=== PATIENT | male | born 1950 | race Caucasian/White ===

== ENCOUNTER → 2018-01-06 14:15 | Outpatient (CLI) | payer MEDICARE, SELFPAY ==
--- NOTE | 2018-01-06 14:15 | DT_ITS ---
This patient was seen during an EMR downtime January 06, 2018 - January 13, 2018. This patient may have a combination of paper and electronic documentation or all paper documentation. All documentation is viewable within the e-chart portion of [employer] for each patient visit.
[2018-01-12 03:16] LABS: PSA,Total- Diagnostic 4.81 ng/mL (0.0-4.0)
== END ==
PROVIDERS: Family Provider Family Medicine; PCP Family Medicine; Visit Provider Family Medicine
DX: R97.20 Elevated prostate specific antigen [PSA] (principal)
CPT/HCPCS: 36415; 84153

== ENCOUNTER 2018-06-11 09:20 | Emergency (ER) | payer MEDICARE, SELFPAY ==
[2018-06-11 09:21] VITALS: BP 167/101; PULSE 72; RESP 19; TEMP 36.3; O2SAT 96; BMI 34.3
--- NOTE | 2018-06-11 09:40 | CT_ITS ---
STUDY: CT BRAIN WITHOUT CONTRAST REASON FOR EXAM: Male, 68 years old. Vertigo. Vomiting. RADIATION DOSAGE (If Supplied By Facility): CTDIvol = ( 44.99 ) mGy, DLP = ( 829.85 ) mGycm TECHNIQUE: Transaxial CT imaging of the brain was performed without administration of intravenous contrast material. Individualized dose optimization techniques were used for this CT. COMPARISON: Comparison is made with prior study dated April 22, 2016. FINDINGS: Normal soft tissue structures. Normal calvarium. There is mild cerebral atrophy with widening of the extra-axial spaces and ventricular dilatation. There are areas of decreased attenuation within the white matter tracts of the supratentorial brain, consistent with microvascular disease changes. Normal basal ganglia and thalami. Normal brainstem. Normal cerebellum. There is no intracranial hemorrhage. There are no findings of an acute ischemic infarction. Atherosclerotic calcification of the cavernous portions of the internal carotid arteries and vertebral arteries. Partial opacification of the ethmoid sinuses. Mucosal thickening of the right maxillary sinus. CT/Brain/Head without Contrast IMPRESSION: Chronic involutional changes of the brain. Partial opacification of the ethmoid sinuses with mucosal thickening of the right maxillary sinus. Electronically Signed: Shree Carrillo MD at 10:26 EST Tel [phone], Service support ,
--- NOTE | 2018-06-11 09:43 | ED.VISSUMM ---
- ER Visit Summary Date of Service: 06/11/18 Chief Complaint: Dizziness History of Present Illness: The patient is a 68 M history of hypertension is treated with 2 blood pressure medications. Patient states that today he had sudden onset of room spinning dizziness. This or weakness to his upper or lower extremities. He denies any headache. He is on no blood thinners. Patient states his dizziness is worse when he moves his head. He states that the dizziness does make him nauseated and he is vomiting. Denies any hematemesis. No melena. No fever. No abdominal pain. Physical Examination: Older male initial blood pressure 167/101 while I am in the room is 180/82. Otherwise afebrile. H EENT exam pupils round reactive light. No facial droop. Normal speech. No signs of trauma. TMs are normal. Canals are unobstructed no significant wax. Neck nontender. No meningismus. Lungs clear to auscultation bilaterally. Heart regular rhythm no murmur rate about 70. Chest wall nontender. Abdomen soft nontender. Normal bowel sounds. No peritoneal signs. Patient is moving all 4 extremities. They are neurovascularly intact. No edema. Equal symmetrical radial pulses. Equal symmetrical 5 out of 5 public relations analyst strength. Dorsi plantar flexion intact. Neurologically is awake and alert with no focal motor deficits. Fingertip to nose heel to durham are both within normal limits. He does have a positive Hallpike when he is laid flat and his head is turned left and right side up he gets very dizzy and actually gets nauseated and vomited. His NIH score is 0. Test Results: Brain without contrast showed chronic changes no acute process. Also ethmoid sinus mucosal thickening. CBC normal. White count of 7. Hemoglobin 15. Electrolytes unremarkable other than potassium of 3.0. Creatinine 1.36 which is chronic. Emergency Department Course and Treatment: Patient will be treated with IV Zofran for nausea. P.o. Valium once his nausea resolves. Patient is doing much better after the p.o. Valium. His symptoms have resolved. On repeat exam his neurologic exam remains normal. He can now rotate his head from the left and right and has no dizziness or vertiginous symptoms. Treatment Plan: Discharged to home. Valium for his vertigo. Zofran for nausea. Follow-up with his primary care physician as needed. Return if worse. Disposition: Discharge Impression: Acute dizziness secondary to acute vertigo Acute on chronic hypertension This note was generated with [employer] dictation software. It may contain incorrect words, spelling, and punctuation that were not noted in review of the chart prior to signing ED Disposition - Plan for ED Patient: Chief Complaint: Hypertension Referrals: Thierry Fermin DO [Primary Care Provider] -
[2018-06-11] MEDS: Ondansetron 4 MG/2 ML Vial IV ×3 (09:46→11:01)
--- NOTE | 2018-06-11 09:48 | ED.DCSUM_ITS ---
- ER Visit Summary Date of Service: 06/11/18 Chief Complaint: Dizziness History of Present Illness: The patient is a 68 M history of hypertension is treated with 2 blood pressure medications. Patient states that today he had sudden onset of room spinning dizziness. This or weakness to his upper or lower extremities. He denies any headache. He is on no blood thinners. Patient states his dizziness is worse when he moves his head. He states that the dizziness does make him nauseated and he is vomiting. Denies any hematemesis. No melena. No fever. No abdominal pain. Physical Examination: Older male initial blood pressure 167/101 while I am in the room is 180/82. Otherwise afebrile. H EENT exam pupils round reactive light. No facial droop. Normal speech. No signs of trauma. TMs are normal. Canals are unobstructed no significant wax. Neck nontender. No meningismus. Lungs clear to auscultation bilaterally. Heart regular rhythm no murmur rate about 70. Chest wall nontender. Abdomen soft nontender. Normal bowel sounds. No peritoneal signs. Patient is moving all 4 extremities. They are neurovascularly intact. No edema. Equal symmetrical radial pulses. Equal symmetrical 5 out of 5 vegetable sorter strength. Dorsi plantar flexion intact. Neurologically is awake and alert with no focal motor deficits. Fingertip to nose heel to durham are both within normal limits. He does have a positive Hallpike when he is laid flat and his head is turned left and right side up he gets very dizzy and actually gets nauseated and vomited. His NIH score is 0. Test Results: Brain without contrast showed chronic changes no acute process. Also ethmoid sinus mucosal thickening. CBC normal. White count of 7. Hemoglobin 15. Electrolytes unremarkable other than potassium of 3.0. Creatinine 1.36 which is chronic. Emergency Department Course and Treatment: Patient will be treated with IV Zofran for nausea. P.o. Valium once his nausea resolves. Patient is doing much better after the p.o. Valium. His symptoms have resolved. On repeat exam his neurologic exam remains normal. He can now rotate his head from the left and right and has no dizziness or vertiginous symptoms. Treatment Plan: Discharged to home. Valium for his vertigo. Zofran for nausea. Follow-up with his primary care physician as needed. Return if worse. Disposition: Discharge Impression: Acute dizziness secondary to acute vertigo Acute on chronic hypertension This note was generated with [employer] dictation software. It may contain incorrect words, spelling, and punctuation that were not noted in review of the chart prior to signing ED Disposition - Plan for ED Patient: Chief Complaint: Hypertension Referrals: Thierry Fermin DO [Primary Care Provider] -
[2018-06-11 09:53] LABS: Absolute Neutrophil Count 5.5 X10^3/uL (2.0-7.7); Basophil# 0.01 X10^3/uL; Basophil% 0.1 % (0-1); Eosinophil# 0.48 X10^3/uL; Eosinophils% 6.3 % (0-5); Hemoglobin 15.6 g/dl (13.0-16.5); Lymphocyte % 15.6 % (19-41); Mean Corp Hgb Conc 33.9 g/gl (32-36); Mean Corpuscular Hgb 29.3 pg (27.0-32.0); Mean Corpuscular Volume 86.5 fL (80-94); Monocyte# 0.44 X10^3/uL; Monocyte% 5.7 % (0-10); Neutrophil # 5.54 X10^3/uL (2.7-7.7); Neutrophil % 72.2 % (47-70); Platelet Count 214 K/mm3 (150-450); RBC Distribution Width CV 13.9 % (11.6-14.6); RBC Distribution Width SD 43.5 fl (35.1-43.9); Red Blood Count 5.32 M/mm3 (4.6-6.2); White Blood Count 7.7 K/mm3 (4.4-11.0)
[2018-06-11 09:57] LABS: POSITIVE COUNT NO; POSITIVE DIFFERENTIAL NO; POSITIVE MORPHOLOGY NO
[2018-06-11 10:04] LABS: Anion Gap 7 (5-15); BUN 21 mg/dL (7-18); BUN/Creat Ratio 15.4 RATIO (10-20); Calcium,Total 8.9 mg/dL (8.5-10.1); Chloride 105 mmol/L (98-107); Creatinine, Serum 1.36 mg/dL (0.70-1.30); EST Glomerular Filtration Rate 56 mL/min (>60); Est Glom Filt Rate - Afr Amer 67 mL/min (>60); Estimated Creatinine Clearance 44.74 ml/min; Glucose 146 mg/dL (74-106); Sodium Level 142 mmol/L (136-145)
[2018-06-11] MEDS: diazePAM 5 MG Tablet PO (11:01)
[2018-06-11 11:27] VITALS: BP 133/98; PULSE 62; RESP 17; O2SAT 97
--- NOTE | 2018-06-11 11:43 | ED.DEP ---
ED Disposition - Plan for ED Patient: Disposition: Home or Assisted Living Chief Complaint: Hypertension Instructions: What Is Meniere's Disease?, ED Vertigo Unspecified Prescriptions: Ondansetron [Zofran Odt] 4 mg PO Q4H PRN PRN #10 tab.rapdis PRN Reason: Nausea Diazepam [Valium] 5 mg PO Q8H PRN PRN #20 tab PRN Reason: Muscle Spasm Referrals: Thierry Fermin, [Primary Care Provider] - As Needed Additional Instructions: Valium as needed for the dizziness. Do not drink or drive while using the Valium. Zofran as needed for nausea. Follow-up with your doctor as needed.
[2018-06-11 11:49] VITALS: BP 139/69; PULSE 63; RESP 18; O2SAT 100
== END 2018-06-11 11:50 | disposition home or self-care (01) ==
PROVIDERS: Emergency Provider Emergency Medicine; Family Provider Family Medicine; PCP Family Medicine
DX: R42 Dizziness and giddiness (principal); I10 Essential (primary) hypertension; Z79.82 Long term (current) use of aspirin; Z79.899 Other long term (current) drug therapy
CPT/HCPCS: 70450; 80048; 85025; 96374; 96376; 99285; A4216; J2405

== ENCOUNTER → 2018-07-11 13:30 | Outpatient (CLI) | payer MEDICARE, SELFPAY ==
[2018-07-11 16:11] LABS: PSA,Total- Diagnostic 5.97 ng/mL (0.0-4.0)
== END ==
PROVIDERS: Family Provider Family Medicine; PCP Family Medicine; Visit Provider Family Medicine
DX: R97.20 Elevated prostate specific antigen [PSA] (principal)
CPT/HCPCS: 36415; 84153

== ENCOUNTER → 2019-02-09 | Outpatient (CLI) | payer MEDICARE, SELFPAY ==
[2019-02-09 15:39] LABS: Absolute Lymphocyte Count 1.53 X10^3/ul (0.83-4.51); Basophil# 0.01 X10^3/uL; Basophil% 0.1 % (0-1); Eosinophil# 0.39 X10^3/uL; Eosinophils% 4.1 % (0-5); Hematocrit 48.4 % (40-54); Hemoglobin 16.4 g/dl (13.0-16.5); Lymphocyte # 1.53 X10^3/ul (4.0); Mean Corp Hgb Conc 33.9 g/gl (32-36); Mean Corpuscular Hgb 28.9 pg (27.0-32.0); Mean Corpuscular Volume 85.2 fL (80-94); Mean Platelet Vol. 9.6 fl (6.2-12.0); Monocyte# 0.65 X10^3/uL; Monocyte% 6.8 % (0-10); Neutrophil # 6.99 X10^3/uL (2.7-7.7); Neutrophil % 72.8 % (47-70); Platelet Count 234 K/mm3 (150-450); RBC Distribution Width CV 14.3 % (11.6-14.6); RBC Distribution Width SD 44.5 fl (35.1-43.9); Red Blood Count 5.68 M/mm3 (4.6-6.2); White Blood Count 9.6 K/mm3 (4.4-11.0)
[2019-02-09 15:43] LABS: POSITIVE COUNT NO; POSITIVE DIFFERENTIAL NO; POSITIVE MORPHOLOGY NO
[2019-02-09 15:44] LABS: Microalbumin,Random Urine 31.7 mg/L (NO RANGE EST.); Microalbumin:Creatinine Ratio 60.6 mg/g CRE (<30 mg/g CRE)
[2019-02-09 15:54] LABS: BUN 24 mg/dL (7-18); Creatinine, Serum 1.48 mg/dL (0.70-1.30); Glucose 83 mg/dL (74-106)
[2019-02-09 15:55] LABS: ALB/GLOB Ratio 1.3 RATIO (0.9-2.4); AST(SGOT) 18 U/L (15-37); Alanine Aminotransfer ALT/SGPT 33 U/L (16-61); Albumin, Serum 4.3 g/dL (3.2-5.0); Alkaline Phosphatase 88 U/L (45-117); Anion Gap 11 (5-15); BUN/Creat Ratio 16.2 RATIO (10-20); Calcium,Total 9.4 mg/dL (8.5-10.1); Chloride 106 mmol/L (98-107); Cholesterol 161 mg/dL (200); EST Glomerular Filtration Rate 50 mL/min (>60); Est Glom Filt Rate - Afr Amer 61 mL/min (>60); Globulin 3.2 g/dL (2.2-4.2); High Density Lipoprotein 42 mg/dL; Potassium 3.3 mmol/L (3.5-5.1); Protein, Total 7.5 g/dL (6.4-8.2); Sodium Level 143 mmol/L (136-145); Triglycerides 192 mg/dL; Very Low Density Lipoprotein 38 mg/dL (5-40)
== END | disposition home or self-care (01) ==
LOC: LAB.FUTURE 11:42
PROVIDERS: Family Provider Family Medicine; PCP Family Medicine; Visit Provider Family Medicine
DX: I12.9 Hypertensive chronic kidney disease with stage 1 through stage 4 chronic kidney disease, or unspecified chronic kidney disease (principal); N18.3 Chronic kidney disease, stage 3 (moderate); R97.20 Elevated prostate specific antigen [PSA]; R80.9 Proteinuria, unspecified
CPT/HCPCS: 36415; 80053; 80061; 82043; 82570; 84153; 85025

== ENCOUNTER → 2019-05-14 12:08 | Outpatient (CLI) | payer MEDICARE, SELFPAY | PROVIDERS: Family Provider Family Medicine; PCP Family Medicine; Visit Provider Family Medicine | DX: R97.20 Elevated prostate specific antigen [PSA] (principal) | CPT/HCPCS: 36415; 84153 ==

== ENCOUNTER 2019-08-05 18:01 | Emergency (ER) | payer MEDICARE, SELFPAY ==
[2019-08-05 18:03] VITALS: BP 174/100; PULSE 77; RESP 16; TEMP 37.2; O2SAT 97; BMI 35.9
--- NOTE | 2019-08-05 18:31 | RAD_ITS ---
STUDY: X-RAY - RIGHT KNEE REASON FOR EXAM: Male, 69 years old. PAIN, NKI TECHNIQUE: 2 view(s) of the knee. COMPARISON: None. FINDINGS: Normal visualized distal femur. Normal visualized proximal tibia and fibula. Normal proximal tibiofibular articulation. There is no demonstrated fracture. Normal medial femorotibial compartment. Normal lateral femorotibial compartment. There is mild degenerative arthrosis of the patellofemoral articulation. The soft tissue structures are unremarkable. RAD/Knee 1 or 2 Views IMPRESSION: Normally located without fracture or substantial joint effusion. 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 Electronically Signed: Shanika Zepeda MD at 18:57 EST , Service support ,
--- NOTE | 2019-08-05 20:15 | ED.VIS.LOWEX ---
History of Present Illness Chief Complaint: Lower Extremity Injury Informant: Patient Occurred: Yesterday Mechanism/Context: - - twist Onset: Yesterday Context: Sudden Onset Timing: Continuous Narrative: Patient is a 69-year-old male presenting with injury and pain to his right knee. Yesterday he stepped funny on a stone and twisted his knee. Since then he has had significant pain. He has associated swelling. He felt a popping sensation. He has been using crutches to ambulate at home. His pain is better today but he still having pain. He took aspirin and Tylenol today. He denies any other injuries or complaints at this time. Past Medical History - Allergies and Home Meds Allergies/Adverse Reactions: Allergies No Known Allergies Allergy (Verified 08/05/19 18:02) Primary Care Physician: Estefany Mccarthy DO [STAFF PHYSICIAN] - Thierry Fermin DO [Primary Care Provider] - Past Medical History: - - Hypertension Surgical History: noncontributory Lives: Spouse/ Significant Other Smoking Status: Never smoker Review of Systems General: Denies: Chills, Fever, Sweats Eyes: Denies: Visual changes - bilaterally, Diplopia ENT: Denies: Rhinorrhea, Sore throat Cardiovascular: Denies: Chest pain, Palpitations Respiratory: Denies: Dyspnea, Cough, Dyspnea on exertion Gastrointestinal: Denies: Abdominal pain, Nausea, Vomiting, Diarrhea, Melena, Hematochezia Genitourinary: Denies: Dysuria, Hematuria, Frequency Musculoskeletal: Reports: Swelling - Right knee, Extremity Pain - Right knee. Denies: Back pain Skin: Denies: Rash, Wounds Neurological: Denies: Headache, Weakness, Numbness Physical Exam Vital Signs/Narrative: Vital Signs Temp Pulse Resp BP Pulse Ox 08/05/19 18:03 98.9 F 77 16 174/100 H 97 Inital Vital Signs reviewed: Yes - Extremity Exam Right Knee: Edema, - - Normal straight leg test. Normal range of motion but painful. Patient has a negative anterior posterior drawer test. He does have pain with valgus stress on the medial aspect of his right knee.. Negative for: Abrasion, Contusion, Limited ROM Right Tib fib: Negative for: Deformity, Hematoma General: Well nourished, Well developed Head: Normocephalic, Atraumatic Eyes: Perrl, EOMI ENT: No Trauma, Moist Mucous Membranes Neck: Nontender, Full ROM Cardiovascular: Regular rate, Regular rhythm, No murmurs Respiratory: No distress, CTA bilaterally, Chest nontender Abdomen: Soft, Nontender, Nondistended, Normal bowel sounds Back: Nontender Skin: Normal color, No rash Neurological: Alert, Oriented x3, Cranial nerves II-XII grossly intact, Normal Strength, Normal Sensation Psychological: Normal affect Diagnostic/Tx/Re-eval Clinical Impression(s) from Imaging Studies Knee X-Ray 08/05/19 18:31 IMPRESSION: Normally located without fracture or substantial joint effusion. 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 Electronically Signed: Shanika Zepeda MD at 18:57 EST , Service support , - Medical Decision Making Patient twisted his right knee yesterday. He felt a popping sensation. Has had pain since then. Pain is improved with ibuprofen and aspirin. Patient not have an obvious deformity of his knee but does have some soft tissue swelling most pronounced over the medial aspect. I am concerned for possible medial ligamentous injury. He is counseled that he will need to follow-up with orthopedics for further evaluation of his knee. He is placed in an Gildardo wrap. Patient states he feels very comfortable using crutches but I did recommend walker instead. His has one at home he can use if he chooses to. Patient is counseled on signs and symptoms requiring return to the emergency room. Patient verbalizes agreement and understand this plan. Patient discharged home in stable and improved condition. ED Disposition - Plan for ED Patient: Disposition: Home or Assisted Living Diagnosis: Right knee injury Instructions: Knee Sprain Referrals: Thierry Fermin DO [Primary Care Provider] - Estefany Mccarthy DO [STAFF PHYSICIAN] - Additional Instructions: I suspect you have a ligamentous injury to your knee. You need to follow-up with an orthopedist for further evaluation. Weight-bear as tolerated. Use crutches or walker as needed for pain. Continue to alternate Tylenol and ibuprofen for pain. Return emergency room with any worsening symptoms. You might develop further bruising and swelling of the knee.
[2019-08-05 20:43] VITALS: BP 150/61; PULSE 75; RESP 16; O2SAT 97
== END 2019-08-05 20:45 | disposition home or self-care (01) ==
PROVIDERS: Emergency Provider Emergency Medicine; Family Provider Family Medicine; PCP Family Medicine
DX: S89.91XA Unspecified injury of right lower leg, initial encounter (principal); M17.11 Unilateral primary osteoarthritis, right knee; X50.1XXA Overexertion from prolonged static or awkward postures, initial encounter; Y93.9 Activity, unspecified; Y92.9 Unspecified place or not applicable; I10 Essential (primary) hypertension; Z79.899 Other long term (current) drug therapy
CPT/HCPCS: 73560; 99282

== ENCOUNTER → 2020-03-22 09:15 | Outpatient (CLI) | payer MEDICARE, SELFPAY ==
[2020-03-22 12:29] LABS: Absolute Lymphocyte Count 1.44 X10^3/uL (0.83-4.51); Basophil# 0.03 X10^3/uL; Basophil% 0.4 % (0-1); Eosinophil# 0.33 X10^3/uL; Eosinophils% 4.5 % (0-5); Hematocrit 44.8 % (40-54); Hemoglobin 14.8 g/dL (13.0-16.5); Lymphocyte # 1.44 X10^3/ul (4.0); Lymphocyte % 19.6 % (19-41); Mean Corpuscular Hgb 29.2 pg (27.0-32.0); Mean Corpuscular Volume 88.5 fL (80-94); Mean Platelet Vol. 9.2 fl (6.2-12.0); Monocyte# 0.54 X10^3/uL; Monocyte% 7.3 % (0-10); NRBC Flagged by Analyzer 0 % (0-5); Neutrophil # 4.98 X10^3/uL (2.7-7.7); Neutrophil % 67.8 % (47-70); Platelet Count 237 K/mm3 (150-450); RBC Distribution Width CV 13.2 % (11.6-14.6); RBC Distribution Width SD 42.5 fl (35.1-43.9); Red Blood Count 5.06 M/mm3 (4.6-6.2); White Blood Count 7.4 K/mm3 (4.4-11.0)
[2020-03-22 12:52] LABS: ALB/GLOB Ratio 1.3 RATIO (0.9-2.4); AST(SGOT) 19 U/L (15-37); Alanine Aminotransfer ALT/SGPT 33 U/L (16-61); Alkaline Phosphatase 73 U/L (45-117); Anion Gap 6 (5-15); BUN 22 mg/dL (7-18); BUN/Creat Ratio 14.9 RATIO (10-20); Calcium,Total 8.7 mg/dL (8.5-10.1); Chloride 111 mmol/L (98-107); Cholesterol 162 mg/dL (200); Creatinine, Serum 1.48 mg/dL (0.70-1.30); EST Glomerular Filtration Rate 50 mL/min (>60); Est Glom Filt Rate - Afr Amer 61 mL/min (>60); Globulin 3.1 g/dL (2.2-4.2); Glucose 113 mg/dL (74-106); High Density Lipoprotein 39 mg/dL; PSA,Total- Diagnostic 7.57 ng/mL (0.0-4.0); Potassium 3.4 mmol/L (3.5-5.1); Protein, Total 7.1 g/dL (6.4-8.2); Sodium Level 142 mmol/L (136-145); Triglycerides 109 mg/dL; Very Low Density Lipoprotein 22 mg/dL (5-40)
[2020-03-22 12:53] LABS: Microalbumin,Random Urine 22.4 mg/L (NO RANGE EST.); Microalbumin:Creatinine Ratio 42.8 mg/g CRE (<30 mg/g CRE)
== END ==
PROVIDERS: PCP Family Medicine; Visit Provider Family Medicine
DX: I12.9 Hypertensive chronic kidney disease with stage 1 through stage 4 chronic kidney disease, or unspecified chronic kidney disease (principal); N18.3 Chronic kidney disease, stage 3 (moderate); R80.9 Proteinuria, unspecified; R97.20 Elevated prostate specific antigen [PSA]
CPT/HCPCS: 36415; 80053; 80061; 82043; 82570; 84153; 85025

== ENCOUNTER 2020-12-07 00:34 | Inpatient (IN) | payer MEDICARE, SELFPAY ==
[2020-12-07] VITALS (43 sets, daily range): BP systolic 99–154; BP diastolic 58–108; PULSE 52–87; RESP 12–45; TEMP 36.7–37.6; O2SAT 65–99; BMI 37.0; BMI 36.3
--- NOTE | 2020-12-07 00:39 | EKG12_ITS ---
Test Reason : SOB Blood Pressure : / mmHG Vent. Rate : 072 BPM Atrial Rate : 072 BPM P-R Int : 154 ms QRS Dur : 096 ms QT Int : 346 ms P-R-T Axes : 047 -38 -19 degrees QTc Int : 378 ms Normal sinus rhythm Left axis deviation Inferior infarct , age undetermined Abnormal ECG Confirmed by BLANCHE HOBBS, AKHIL ([id number]), newspaper editor MIGUEL CAMARENA ([id number]) on 12/07/2020 9:26:32 AM Referred By: MINE Confirmed By:AKHIL MANCIA MD
--- NOTE | 2020-12-07 00:46 | EX.ED.DYSGE1 ---
HPI History of Present Illness Chief Complaint: Shortness of Breath Informant: patient Onset/Context/Timing Onset: Days Context: Gradual Onset Timing: Continuous Current Severity: Moderate Maximum Severity: Moderate Narrative Narrative: The patient is a 70-year-old male with medical history significant for hypertension presents to the emergency department shortness of breath. The patient has no underlying history of lung disease. He states for the past 4 days, he has had gradually worsening shortness of breath. He feels like he cannot catch his breath. He has had fever, scant cough, chills, and myalgias. He denies any recent sick contacts. He has not been vaccinated against Covid. He states he was using a family members oxygen to keep his oxygen saturations up. Tonight, he could not get higher than the upper 70s despite supplemental oxygen.. Prior similar symptoms: No Recent Illness/Hospitalization: No PFSH PFSH Medical History (Updated 12/07/20 @ 02:[address] Sourav Arias MD) Hypertension Home Medications amlodipine 10 mg PO DAILY #30 tablet 04/23/16 [Rx Last Taken Unknown] hydrochlorothiazide 25 mg PO DAILY #30 tablet 04/23/16 [Rx Last Taken Unknown] Allergy/AdvReac Type Severity Reaction Status Date / Time No Known Allergies Allergy Verified 08/05/19 18:02 Family History (Updated 12/07/20 @ 02:[address] Sourav Arias MD) Other Heart disease no surgical history Social History Smoking Status: Never smoker ROS ROS ED Constitutional Constitutional ED: Reports fever(s); Denies chills Eyes Eyes: Denies blurry vision or change in vision ENT ENT ED: Denies ear pain or sore throat Cardiovascular Cardiovascular: Denies chest pain or palpitations Respiratory/Chest Respiratory/Chest: Reports cough and dyspnea; Denies dyspnea on exertion Gastrointestinal Gastrointestinal: Denies abdominal pain, nausea or vomiting Genitourinary Genitourinary ED: Denies dysuria or urinary frequency Musculoskeletal Musculoskeletal: Reports myalgias; Denies arthralgias Integumentary Denies rash Neurologic Neurologic: Denies headache(s) or paresthesias Psychiatric Psychiatric: Denies anxiety or depression Endocrine Endocrinology: Denies polydipsia or polyuria Allergic/Immunologic Allergic/Immunologic ED: Denies urticaria EXAM Physical Exam Const Vital Signs: 12/07/20 00:35 12/07/20 00:40 12/07/20 00:46 Temperature 98.7 F 98.7 F Temperature Source Oral Oral Pulse Rate 76 75 Respiratory Rate 20 H 45 H Respiratory Effort Short of Breath Respiratory Depth Shallow Respiratory Pattern Tachypnea Blood Pressure 143/76 H 143/76 H Blood Pressure Mean 98 98 Pulse Ox 65 91 Oxygen Delivery Method Room Air Non-Rebreather Room Air Oxygen Flow Rate (L/min) 6 Fraction of Inspired Oxygen (FIO2) 12/07/20 01:02 12/07/20 01:06 12/07/20 01:11 Temperature Temperature Source Pulse Rate 75 71 72 Respiratory Rate 34 H 30 H 34 H Respiratory Effort Respiratory Depth Respiratory Pattern Tachypnea Tachypnea Blood Pressure 140/92 H Blood Pressure Mean 108 Pulse Ox 93 97 Oxygen Delivery Method Airvo Oxygen Flow Rate (L/min) 50 Fraction of Inspired Oxygen (FIO2) 80 81 12/07/20 01:15 12/07/20 01:40 12/07/20 01:50 Temperature 99.6 F H Temperature Source Oral Pulse Rate 69 66 Respiratory Rate 32 H 34 H Respiratory Effort Respiratory Depth Respiratory Pattern Blood Pressure 130/70 H 132/67 H Blood Pressure Mean 90 88 Pulse Ox 93 87 Oxygen Delivery Method Non-Rebreather Airvo Oxygen Flow Rate (L/min) 50 50 Fraction of Inspired Oxygen (FIO2) 75 76 75 Positive well nourished and well developed General Appearance ED: well developed HEENT Reports normocephalic, head/scalp atraumatic and moist mucous membranes Eyes PERRL and EOMs intact bilaterally Neck no lymphadenopathy and supple General: Negative for tenderness Chest Wall inspection of chest normal Resp normal respiratory effort Auscultation: diminished lung sounds Cardio regular rate, regular rhythm and no murmurs GI normal to inspection, nondistended, normoactive bowel sounds Palpation: Negative for tender, guarding or rebound tenderness present Back/Spine no CVA tenderness Cervical Spine: Negative for cervical spine tenderness Thoracic Spine / Upper Back: Negative for thoracic spinal tenderness Extremity normal to inspection General Extremety ED: Negative for tenderness Neuro oriented x3 and CN's II-XII intact bilaterally Neuro Narrative: No focal deficits appreciated. Sensorium / Orientation: alert Psych mental status grossly normal Skin no rashes or lesions noted, no wounds and skin turgor normal MDM MDM MDM Narrative Medical decision making narrative: Patient presents with shortness of breath, cough, and fever. He does have some diminished lung sounds without any significant wheezing. We did have a hard time getting the patient's oxygen saturations above the mid 80s with nonrebreather. The patient was transitioned to high flow nasal cannula. He had saturations in the mid 90s and was much more comfortable. Screening labs do show mild leukocytosis. His potassium is also decreased to 2.9. This is replaced orally. Lactic acid was normal. Troponin is indeterminate 0.049, but the patient also has evidence of acute kidney injury. He was gently hydrated. He was given acetaminophen and dexamethasone. Patient's Covid was positive. Given his hypoxic respiratory failure, the patient will be admitted at this time. Despite being on high flow, the patient continued to have increasing oxygen requirements and was transitioned to BiPAP. He will be admitted to the ICU. Impression 1. COVID-19 2. Hypoxic respiratory failure 3. Hypokalemia Lab Data Attestation: I reviewed the patient's lab results. Labs: Laboratory Results - last 24 hr 12/07/20 12/07/20 12/07/20 00:40 00:40 00:40 WBC 13.8 H RBC 4.83 Hgb 14.1 Hct 41.1 MCV 85.1 MCH 29.2 MCHC 34.3 RDW Std Deviation 41.1 RDW Coeff of Stephanie 13.2 Plt Count 243 MPV 9.3 Immature Gran % (Auto) 0.400 Neut % (Auto) 90.5 H Lymph % (Auto) 5.7 L [place] % (Auto) 3.1 Eos % (Auto) 0.1 Baso % (Auto) 0.2 Absolute Neuts (auto) 12.4 H Absolute Lymphs (auto) 0.79 L Nucleated RBC % 0 Sodium 132 L Potassium 2.9 L Chloride 96 L Carbon Dioxide 28.0 Anion Gap 8 BUN 26 H Creatinine 1.81 H Estim Creat Clear Calc 32.71 Est GFR (MDRD) Af Amer 48 L Est GFR (MDRD) Non-Af 40 L BUN/Creatinine Ratio 14.4 Glucose 134 H Lactic Acid 1.9 Calcium 8.7 Total Bilirubin 0.70 AST 48 H ALT 46 Alkaline Phosphatase 82 Troponin I 0.049 H B-Natriuretic Peptide Total Protein 7.2 Albumin 3.1 L Globulin 4.1 Albumin/Globulin Ratio 0.8 L 12/07/20 00:40 WBC RBC Hgb Hct MCV MCH MCHC RDW Std Deviation RDW Coeff of Stephanie Plt Count MPV Immature Gran % (Auto) Neut % (Auto) Lymph % (Auto) [place] % (Auto) Eos % (Auto) Baso % (Auto) Absolute Neuts (auto) Absolute Lymphs (auto) Nucleated RBC % Sodium Potassium Chloride Carbon Dioxide Anion Gap BUN Creatinine Estim Creat Clear Calc Est GFR (MDRD) Af Amer Est GFR (MDRD) Non-Af BUN/Creatinine Ratio Glucose Lactic Acid Calcium Total Bilirubin AST ALT Alkaline Phosphatase Troponin I B-Natriuretic Peptide 47.3 Total Protein Albumin Globulin Albumin/Globulin Ratio Radiography Diagnostic Testing: Radiology Impression Chest X-Ray 12/07/20 01:30 IMPRESSION: Diffuse bilateral airspace disease which may represent pneumonia. at 0200 Reported and signed by: Bobo Verduzco MD Electronically Signed: Bobo Verduzco MD at 1:59 EDT Tel , Service support , Critical Care Time Critical Care Time: Yes Critical care time (excluding procedures): 30-74 minutes, Including time spent:, Discussing w/Patient &/or Family/Grief Counsellor, Discussing w/Consultants, Arranging Admission or Transfer and Performing Direct Patient Care at Bedside Discharge Plan Triage Chief Complaint: Shortness of Breath Other Complaint: Fever ED Provider: Tae Ching Dx/Rx/DC Orders Primary Care Provider: Thierry Fermin
[2020-12-07 00:50] LABS: Absolute Lymphocyte Count 0.79 X10^3/uL (0.83-4.51); Absolute Neutrophil Count 12.4 X10^3/uL (2.0-7.7); Basophil# 0.03 X10^3/uL; Basophil% 0.2 % (0-1); Eosinophil# 0.01 X10^3/uL; Eosinophils% 0.1 % (0-5); Hematocrit 41.1 % (40-54); Hemoglobin 14.1 g/dL (13.0-16.5); Lymphocyte # 0.79 X10^3/ul (0.83-4.51); Lymphocyte % 5.7 % (19-41); Mean Corp Hgb Conc 34.3 g/dL (32-36); Mean Corpuscular Hgb 29.2 pg (27.0-32.0); Mean Corpuscular Volume 85.1 fL (80-94); Mean Platelet Vol. 9.3 fl (6.2-12.0); Monocyte# 0.43 X10^3/uL; Monocyte% 3.1 % (0-10); NRBC Flagged by Analyzer 0 % (0-5); Neutrophil # 12.44 X10^3/uL (2.7-7.7); Neutrophil % 90.5 % (47-70); Platelet Count 243 K/mm3 (150-450); RBC Distribution Width CV 13.2 % (11.6-14.6); RBC Distribution Width SD 41.1 fl (35.1-43.9); Red Blood Count 4.83 M/mm3 (4.6-6.2); White Blood Count 13.8 K/mm3 (4.4-11.0)
[2020-12-07] MEDS: Acetaminophen 500 MG Tablet 1000 MG PO (01:02)
[2020-12-07] MEDS: dexAMETHasone 10 MG/ML Vial 6 MG IV (01:02)
[2020-12-07] MEDS: 0.9% Normal Saline 1,000 ML 125 ML IV (01:03)
[2020-12-07 01:10] LABS: BNP,B-Type NATRIURETIC PEPTIDE 47.3 pg/mL (0-100)
[2020-12-07 01:14] LABS: ALB/GLOB Ratio 0.8 RATIO (0.9-2.4); AST(SGOT) 48 U/L (15-37); Alanine Aminotransfer ALT/SGPT 46 U/L (16-61); Albumin, Serum 3.1 g/dL (3.2-5.0); Alkaline Phosphatase 82 U/L (45-117); Anion Gap 8 (5-15); BUN 26 mg/dL (7-18); BUN/Creat Ratio 14.4 RATIO (10-20); Calcium,Total 8.7 mg/dL (8.5-10.1); Chloride 96 mmol/L (98-107); Creatinine, Serum 1.81 mg/dL (0.70-1.30); EST Glomerular Filtration Rate 40 mL/min (>60); Est Glom Filt Rate - Afr Amer 48 mL/min (>60); Estimated Creatinine Clearance 32.71 ml/min; Globulin 4.1 g/dL (2.2-4.2); Glucose 134 mg/dL (74-106); Lactic Acid 1.9 mmol/L (0.4-1.9); Potassium 2.9 mmol/L (3.5-5.1); Protein, Total 7.2 g/dL (6.4-8.2); Sodium Level 132 mmol/L (136-145)
--- NOTE | 2020-12-07 01:30 | RAD_ITS ---
EXAM: XR CHEST, 1 VIEW : 1950 CLINICAL INDICATION: increased sob and fevers since Saturday, cough. TECHNIQUE: Frontal view of the chest. This report was created using [employer] report generation technology. COMPARISON: 04/22/2016 FINDINGS: LUNGS AND PLEURAL SPACES: There is diffuse bilateral airspace disease. No pneumothorax. No effusion. HEART: Unremarkable. Cardiac silhouette not enlarged. MEDIASTINUM: Central airways and mediastinal contour are unremarkable. BONES/JOINTS: Unremarkable. SOFT TISSUES: Unremarkable. RAD/Chest 1 View (Portable) IMPRESSION: Diffuse bilateral airspace disease which may represent pneumonia. at 0200 Reported and signed by: Bobo Verduzco MD Electronically Signed: Bobo Verduzco MD at 1:59 EDT Tel , Service support ,
[2020-12-07] MEDS: Potassium Chloride Oral Soln 20 MEQ/15 ML UDC 40 MEQ PO (01:40)
--- NOTE | 2020-12-07 01:55 | HP.PCM.HOS_ITS ---
HPI - General General Date of Admission: 12/07/20 HPI Narrative DINO BLANDON, is a 70 M with a significant history of hypertension and CKD stage IIIa who presents with 3-day history of progressive worsening shortness of breath. His home oxygen saturation was severely low. Patient was too short of breath that although at baseline he does not use home oxygen he borrowed his family members oxygen in use. Associated with his symptoms is a home temperature of 102 Fahrenheit; chills; productive cough of clear sputum. Further he reports fatigue; and muscle aches. He denies anorexia. He denies any change in his taste sensation or smell sensation. He denied taking the COVID-19 virus. [facility] Medical History (Updated 12/07/20 @ 02:[address] Sourav Arias MD) Hypertension Home Medications amlodipine 10 mg PO DAILY #30 tablet 04/23/16 [Rx Last Taken Unknown] hydrochlorothiazide 25 mg PO DAILY #30 tablet 04/23/16 [Rx Last Taken Unknown] Allergy/AdvReac Type Severity Reaction Status Date / Time No Known Allergies Allergy Verified 08/05/19 18:02 Family History (Updated 12/07/20 @ 02:[address] Sourav Arias MD) Other Heart disease no surgical history Social History Smoking Status: Never smoker ROS ROS Narrative 12 point review of system is negative except as stated in HPI. Vital Signs Vital Signs Vital Signs: 12/07/20 00:35 12/07/20 00:40 12/07/20 00:46 Temperature 98.7 F 98.7 F Temperature Source Oral Oral Pulse Rate 76 75 Respiratory Rate 20 H 45 H Respiratory Effort Short of Breath Respiratory Depth Shallow Respiratory Pattern Tachypnea Blood Pressure 143/76 H 143/76 H Blood Pressure Mean 98 98 Pulse Ox 65 91 Oxygen Delivery Method Room Air Non-Rebreather Room Air Oxygen Flow Rate (L/min) 6 Fraction of Inspired Oxygen (FIO2) 12/07/20 01:02 12/07/20 01:06 12/07/20 01:11 Temperature Temperature Source Pulse Rate 75 71 72 Respiratory Rate 34 H 30 H 34 H Respiratory Effort Respiratory Depth Respiratory Pattern Tachypnea Tachypnea Blood Pressure 140/92 H Blood Pressure Mean 108 Pulse Ox 93 97 Oxygen Delivery Method Airvo Oxygen Flow Rate (L/min) 50 Fraction of Inspired Oxygen (FIO2) 80 81 12/07/20 01:15 12/07/20 01:40 12/07/20 01:50 Temperature 99.6 F H Temperature Source Oral Pulse Rate 69 66 Respiratory Rate 32 H 34 H Respiratory Effort Respiratory Depth Respiratory Pattern Blood Pressure 130/70 H 132/67 H Blood Pressure Mean 90 88 Pulse Ox 93 87 Oxygen Delivery Method Non-Rebreather Airvo Oxygen Flow Rate (L/min) 50 50 Fraction of Inspired Oxygen (FIO2) 75 76 75 Physical Exam Narrative Alert and oriented x3 Nontraumatic; normocephalic Tachypnea; appears short of breath with use of accessory muscles or conversational dyspnea. Lungs with rales Heart sounds S1-S2. No murmur, gallop or rubs. Abdomen bowel sounds present soft, nontender nondistended Extremity without edema cyanosis or clubbing. Lab / Micro Data Result Diagrams: 12/07/20 00:40 12/07/20 00:40 Labs: Laboratory Results - last 24 hr 12/07/20 12/07/20 12/07/20 00:40 00:40 00:40 WBC 13.8 H RBC 4.83 Hgb 14.1 Hct 41.1 MCV 85.1 MCH 29.2 MCHC 34.3 RDW Std Deviation 41.1 RDW Coeff of Stephanie 13.2 Plt Count 243 MPV 9.3 Immature Gran % (Auto) 0.400 Neut % (Auto) 90.5 H Lymph % (Auto) 5.7 L [place] % (Auto) 3.1 Eos % (Auto) 0.1 Baso % (Auto) 0.2 Absolute Neuts (auto) 12.4 H Absolute Lymphs (auto) 0.79 L Nucleated RBC % 0 Sodium 132 L Potassium 2.9 L Chloride 96 L Carbon Dioxide 28.0 Anion Gap 8 BUN 26 H Creatinine 1.81 H Estim Creat Clear Calc 32.71 Est GFR (MDRD) Af Amer 48 L Est GFR (MDRD) Non-Af 40 L BUN/Creatinine Ratio 14.4 Glucose 134 H Lactic Acid 1.9 Calcium 8.7 Total Bilirubin 0.70 AST 48 H ALT 46 Alkaline Phosphatase 82 Troponin I 0.049 H B-Natriuretic Peptide Total Protein 7.2 Albumin 3.1 L Globulin 4.1 Albumin/Globulin Ratio 0.8 L 12/07/20 00:40 WBC RBC Hgb Hct MCV MCH MCHC RDW Std Deviation RDW Coeff of Stephanie Plt Count MPV Immature Gran % (Auto) Neut % (Auto) Lymph % (Auto) [place] % (Auto) Eos % (Auto) Baso % (Auto) Absolute Neuts (auto) Absolute Lymphs (auto) Nucleated RBC % Sodium Potassium Chloride Carbon Dioxide Anion Gap BUN Creatinine Estim Creat Clear Calc Est GFR (MDRD) Af Amer Est GFR (MDRD) Non-Af BUN/Creatinine Ratio Glucose Lactic Acid Calcium Total Bilirubin AST ALT Alkaline Phosphatase Troponin I B-Natriuretic Peptide 47.3 Total Protein Albumin Globulin Albumin/Globulin Ratio Micro: Microbiology 12/07/20 00:50 SARS-CoV-2 Antigen (Rapid) - Final Nasal Secretion SARS-CoV-2 (COVID 19) Assessment & Plan Assessment/Plan (1) Acute hypoxemic respiratory failure: Status: Acute Code(s): J96.01 - Acute respiratory failure with hypoxia (2) Severe acute respiratory syndrome: Status: Acute Code(s): B97.21 - SARS-associated coronavirus as the cause of diseases classified elsewhere (3) COVID-19: Status: Acute Code(s): U07.1 - COVID-19 (4) Elevated troponin: Status: Acute Code(s): R77.8 - Other specified abnormalities of plasma proteins (5) CKD (chronic kidney disease) stage 3, GFR 30-59 ml/min: Status: Chronic Code(s): N18.30 - Chronic kidney disease, stage 3 unspecified Qualifiers: Chronic kidney disease stage 3 subtype: stage 3a (GFR 45-59) Qualified Code(s): N18.31 - Chronic kidney disease, stage 3a (6) Hypertension: Status: Chronic Code(s): I10 - Essential (primary) hypertension Qualifiers: Hypertension type: essential hypertension Qualified Code(s): I10 - Essential (primary) hypertension Plan: Acute hypoxemic respiratory insufficiency secondary to SARS- COV 2 Patient initially maxed out on arrival and now transferred to the BiPAP at emergency department. Continue BiPAP started at emergency department. Keep n.p.o. except meds while on BiPAP. Oxygen supplementation continued. Positive coronavirus test at the emergency department Impression of chest x-ray by radiologist: Diffuse bilateral airspace disease which may represent pneumonia. Actual chest x-ray image was independently inter preted. I agree radiologist interpretation. Procalcitonin ordered. Trend CBC and CMP. Received Decadron 6 mg IV at the emergency department. Decadron 6 mg p.o. ordered. Remdesivir ordered of note patient has mild elevation in AST. Normal ALT and alkaline phosphatase. Creatinine clearance is 32.71. Tylenol for fever Mucinex ordered Elevated troponin likely secondary to demand ischemia. Trend troponin CKD likely secondary to hypertensive nephrosclerosis. Creatinine presentation was 1.81. Baseline creatinine around 1.48. Community records were reviewed with no recent creatinine done in our computer system ([facility]) NIALL likely secondary to prerenal from insensible losses secondary to increased work of breathing. Gentle IV hydration. Hold nephrotoxins. Home hydrochlorothiazide held. Hypertensive?blood pressure is stable. Amlodipine continued. Hydrocortisone h as acute NIALL. Admit to intensive care unit and consult cardroom worker/pulmonology
[2020-12-07 03:16] LABS: Allen Test Positive; Base Excess 0 mmol/L (-2 to +2); Bicarbonate 23.5 mmol/L (22-26); Blood Gas Specimen Type ART; FI02 85; Mode NIV; O2 Delivery Device BiPAP; PO2 67 mmHG (75-100); RR 12; SITE R Radial; SO2 94 % (95-99); Total Carbon Dioxide 25 mmol/L; pCO2 32.7 mmHg (35-45); pH 7.47 (7.35-7.45)
--- NOTE | 2020-12-07 04:14 | EKG12_ITS ---
Test Reason : AM EKG Blood Pressure : / mmHG Vent. Rate : 055 BPM Atrial Rate : 055 BPM P-R Int : 156 ms QRS Dur : 100 ms QT Int : 452 ms P-R-T Axes : 049 -31 -16 degrees QTc Int : 432 ms Sinus bradycardia Left axis deviation Abnormal ECG Confirmed by SARAY HOBBS, JESSICA ([id number]), paperhanger and painter MIGUEL CAMARENA ([id number]) on 12/08/2020 9:11:02 AM Referred By: ANTHONY Confirmed By:JESSICA SO MD
[2020-12-07 04:33] LABS: Hematocrit 36.3 % (40-54); Hemoglobin 12.4 g/dL (13.0-16.5); Mean Corp Hgb Conc 34.2 g/dL (32-36); Mean Platelet Vol. 9.6 fl (6.2-12.0); Platelet Count 219 K/mm3 (150-450); RBC Distribution Width CV 13.3 % (11.6-14.6); RBC Distribution Width SD 41.6 fl (35.1-43.9); Red Blood Count 4.27 M/mm3 (4.6-6.2); White Blood Count 13.7 K/mm3 (4.4-11.0)
[2020-12-07] MEDS: 0.9% Normal Saline 1,000 ML 75 ML IV ×2 (04:36→20:14)
[2020-12-07 04:50] LABS: ALB/GLOB Ratio 0.8 RATIO (0.9-2.4); AST(SGOT) 50 U/L (15-37); Alanine Aminotransfer ALT/SGPT 45 U/L (16-61); Albumin, Serum 2.8 g/dL (3.2-5.0); Alkaline Phosphatase 72 U/L (45-117); Anion Gap 10 (5-15); BUN 25 mg/dL (7-18); Calcium,Total 7.9 mg/dL (8.5-10.1); Chloride 100 mmol/L (98-107); Creatinine, Serum 1.67 mg/dL (0.70-1.30); EST Glomerular Filtration Rate 44 mL/min (>60); Est Glom Filt Rate - Afr Amer 53 mL/min (>60); Estimated Creatinine Clearance 35.45 ml/min; Globulin 3.6 g/dL (2.2-4.2); Glucose 154 mg/dL (74-106); Potassium 3.3 mmol/L (3.5-5.1); Protein, Total 6.4 g/dL (6.4-8.2); Sodium Level 135 mmol/L (136-145)
[2020-12-07 04:57] LABS: Procalcitonin 1.82 ng/mL (0.00-0.09)
[2020-12-07] MEDS: guaiFENesin 1,200 MG Tablet 1200 MG PO ×3 (05:21→22:28)
--- NOTE | 2020-12-07 05:50 | CON.PCM.CC_ITS ---
Assessment & Plan Assessment/Plan (1) Acute hypoxemic respiratory failure: Status: Acute Code(s): J96.01 - Acute respiratory failure with hypoxia (2) COVID-19: Status: Acute Code(s): U07.1 - COVID-19 Plan: RECOMMENDATIONS: 1. Continue BiPAP therapy and wean FiO2 to maintain oxygen saturations at or above 90%. 2. Continue remdesivir as ordered. Continue to monitor liver and renal function. 3. Continue Decadron to complete 10-day treatment course. 4. Obtain infectious diseases consultation. 5. Check D-dimer, and if elevated, obtain CTA chest. 6. Patient to remain n.p.o. for now. IMPRESSIONS: 1. Acute hypoxemic respiratory failure secondary to COVID-19 pneumonia The patient presented to the hospital with 1 week of Covid-like symptoms and was subsequently found to be positive for coronavirus. He has been initiated on noninvasive positive pressure ventilatory support, which will be continued as tolerated. Plan to wean FiO2 to maintain oxygen saturations at or above 90%. The patient has already been initiated on remdesivir and Decadron, which will be continued as scheduled. We will plan to monitor liver and renal function accordingly. We will check D-dimer today and if elevated obtain CTA chest. 2. Advanced age/hypertension Complicates care, management, recovery and prognosis. Continue home medications as indicated. This note was generated with [employer] dictation software. It may contain incorrect words, spelling, and punctuation that were not noted in checking the note before signing. HPI Consult Data Date of Consult: 12/08/20 HPI Narrative Reason for Consultation: Acute hypoxemic respiratory failure secondary to COVID- 19 pneumonia HPI Narrative: The patient is a 70-year-old male, with a history as outlined below, who presented to the emergency department on December 07 with complaints of shortness of breath and hypoxemia. The patient also reports the presence of a cough, fevers, chills and fatigue. The patient has yet to be vaccinated for coronavirus. His symptoms have been present now for approximately 4 days. On presentation to the emergency department, the patient was noted to be afebrile and hemodynamically stable. He was, nevertheless tachypneic and hypoxemic. Initial laboratory evaluation revealed an elevated white blood cell count to 14,000. Chemistry profile was notable for a sodium of 132, potassium of 2.9 and chloride of 96. Creatinine was elevated to 1.81. Initial troponin was mildly elevated to 0.049. BNP was unremarkable. Procalcitonin was elevated to 1.82. The patient eventually had to be started on BiPAP therapy. He was initiated on remdesivir and Decadron. The patient was subsequently admitted to the medical intensive care unit for further management. [facility] Medical History Hypertension Home Medications amlodipine 10 mg PO DAILY #30 tablet 04/23/16 [Rx Last Taken Unknown] hydrochlorothiazide 25 mg PO DAILY #30 tablet 04/23/16 [Rx Last Taken Unknown] Allergy/AdvReac Type Severity Reaction Status Date / Time No Known Allergies Allergy Verified 08/05/19 18:02 Family History (Updated 12/07/20 @ 02:[address] Sourav Arias MD) Other Heart disease Social History Smoking Status: Never smoker ROS Constitutional Constitutional: Reports chills, fatigue and fever(s) Eyes Eyes: Denies blurry vision or change in vision ENT HEENT: Denies dizziness or nasal discharge Cardiovascular Cardiovascular: Reports dyspnea; Denies chest pain or dizziness Respiratory/Chest Respiratory/Chest: Reports cough and dyspnea; Denies chest tightness Gastrointestinal Gastrointestinal: Denies abdominal pain or diarrhea Genitourinary Genitourinary: Denies difficulty urinating or dysuria Musculoskeletal Musculoskeletal: Denies arthralgias Integumentary Integumentary: Denies lesions or rash Neurologic Neurologic: Denies abnormal gait, abnormal speech or confusion Psychiatric Psychiatric: Denies anxiety or depression Endocrine Endocrinology: Reports fatigue Hematologic/Lymphatic Hematologic/Lymphatic: Denies easy bleeding or easy bruising Physical Exam Narrative The patient's most recent lab work, culture data and imaging studies have all been personally reviewed. Const alert and no apparent distress Constitutional Narrative: BiPAP mask in place General Appearance: cooperative HEENT normocephalic and head/scalp atraumatic Eyes PERRL Resp Effort and Inspection: tachypneic Auscultation: diminished lung sounds; Negative for rales, rhonchi or wheezes Cardio regular rate and regular rhythm GI normal to inspection, nondistended, normoactive bowel sounds Extremity no clubbing, cyanosis or edema Skin no rashes or lesions noted Neuro oriented x3, CN's II-XII intact bilaterally and moves all extremities Psych cooperative and affect normal Lab / Micro Data Result Diagrams: 12/08/20 04:25 12/08/20 04:25 Labs: Laboratory Results - last 24 hr 12/07/20 12/07/20 12/07/20 00:40 00:40 00:40 WBC 13.8 H RBC 4.83 Hgb 14.1 Hct 41.1 MCV 85.1 MCH 29.2 MCHC 34.3 RDW Std Deviation 41.1 RDW Coeff of Stephanie 13.2 Plt Count 243 MPV 9.3 Immature Gran % (Auto) 0.400 Neut % (Auto) 90.5 H Lymph % (Auto) 5.7 L [place] % (Auto) 3.1 Eos % (Auto) 0.1 Baso % (Auto) 0.2 Absolute Neuts (auto) 12.4 H Absolute Lymphs (auto) 0.79 L Nucleated RBC % 0 Sodium 132 L Potassium 2.9 L Chloride 96 L Carbon Dioxide 28.0 Anion Gap 8 BUN 26 H Creatinine 1.81 H Estim Creat Clear Calc 32.71 Est GFR (MDRD) Af Amer 48 L Est GFR (MDRD) Non-Af 40 L BUN/Creatinine Ratio 14.4 Glucose 134 H Lactic Acid 1.9 Calcium 8.7 Total Bilirubin 0.70 AST 48 H ALT 46 Alkaline Phosphatase 82 Troponin I 0.049 H B-Natriuretic Peptide Total Protein 7.2 Albumin 3.1 L Globulin 4.1 Albumin/Globulin Ratio 0.8 L Procalcitonin 12/07/20 12/07/20 12/07/20 00:40 04:15 04:15 WBC 13.7 H RBC 4.27 L Hgb 12.4 L Hct 36.3 L MCV 85.0 MCH 29.0 MCHC 34.2 RDW Std Deviation 41.6 RDW Coeff of Stephanie 13.3 Plt Count 219 MPV 9.6 Immature Gran % (Auto) Neut % (Auto) Lymph % (Auto) [place] % (Auto) Eos % (Auto) Baso % (Auto) Absolute Neuts (auto) Absolute Lymphs (auto) Nucleated RBC % Sodium Potassium Chloride Carbon Dioxide Anion Gap BUN Creatinine Estim Creat Clear Calc Est GFR (MDRD) Af Amer Est GFR (MDRD) Non-Af BUN/Creatinine Ratio Glucose Lactic Acid Calcium Total Bilirubin AST ALT Alkaline Phosphatase Troponin I B-Natriuretic Peptide 47.3 Total Protein Albumin Globulin Albumin/Globulin Ratio Procalcitonin 1.82 H 12/07/20 12/07/20 04:15 04:15 WBC RBC Hgb Hct MCV MCH MCHC RDW Std Deviation RDW Coeff of Stephanie Plt Count MPV Immature Gran % (Auto) Neut % (Auto) Lymph % (Auto) [place] % (Auto) Eos % (Auto) Baso % (Auto) Absolute Neuts (auto) Absolute Lymphs (auto) Nucleated RBC % Sodium 135 L Potassium 3.3 L Chloride 100 Carbon Dioxide 25.0 Anion Gap 10 BUN 25 H Creatinine 1.67 H Estim Creat Clear Calc 35.45 Est GFR (MDRD) Af Amer 53 L Est GFR (MDRD) Non-Af 44 L BUN/Creatinine Ratio 15.0 Glucose 154 H Lactic Acid Calcium 7.9 L Total Bilirubin 0.80 AST 50 H ALT 45 Alkaline Phosphatase 72 Troponin I 0.051 H B-Natriuretic Peptide Total Protein 6.4 Albumin 2.8 L Globulin 3.6 Albumin/Globulin Ratio 0.8 L Procalcitonin Micro: Microbiology 12/07/20 00:50 SARS-CoV-2 Antigen (Rapid) - Final Nasal Secretion SARS-CoV-2 (COVID 19) ABG Data ABG results: ABG 12/07/20 03:09 Specimen Type ART Sample Site R Radial pH 7.47 H Bicarbonate Actual 23.5 Total CO2 25 Base Excess 0 O2 Saturation 94 L O2 % 85 ABG pCO2 32.7 L ABG pO2 67 L Stan Test Positive Respiration Rate 12 O2 Delivery Device BiPAP Vent Mode NIV Clinical Comments BiPAP 1410 Radiology Impression Chest X-Ray 12/07/20 01:30 IMPRESSION: Diffuse bilateral airspace disease which may represent pneumonia. at 0200 Reported and signed by: Bobo Verduzco MD Electronically Signed: Bobo Verduzco MD at 1:59 EDT Tel , Service support , Charges/Coding Visit Charges Inpatient E&M: 18985 Init Hosp L3
[2020-12-07] MEDS: Enoxaparin 30 MG/0.3 ML Syringe SC ×2 (10:20→22:27)
[2020-12-07] MEDS: dexAMETHasone 2 MG TABLET 6 MG PO (10:20)
[2020-12-07] MEDS: amLODIPine 10 MG Tablet PO (10:21)
--- NOTE | 2020-12-07 11:49 | PN.HOSP_ITS ---
Subjective Subjective: Patient seen and examined. He was admitted with a complaint of shortness of breath and is being managed for acute hypoxic respiratory failure due to covid 19 infection. He has no complaints this morning and states he is feeling better. He still coughing. He was on BiPAP. Review of symptoms otherwise negative. He is tachypneic this morning with respiratory about 33 but otherwise hemodynamically stable. Objective Data Objective Data WBC is 13.7 today. Potassium is 3.3 and creatinine is 1.67 with sodium of 135. Vital Signs: Vital Signs Temp Pulse Resp BP Pulse Ox 98.2 F 68 33 H 145/84 H 98 12/07/20 10:00 12/07/20 11:12 12/07/20 11:12 12/07/20 11:00 12/07/20 11:12 Oxygen Flow Rate (L/min) 50 Oxygen Delivery Method Bi-pap Weight: 211 lb 9.595 oz Body Mass Index (BMI) 36.3 Finger Stick Blood Glucose 101 Intake & Output: Intake and Output for Last 24 Hours 12/05/20 12/06/20 12/07/20 23:59 23:59 23:59 Intake Total 240 / 240 Output Total 350 / 350 Balance -110 / -110 Lab / Micro Data Result Diagrams: 12/07/20 04:15 12/07/20 04:15 Labs: Laboratory Results - last 24 hr 12/07/20 12/07/20 12/07/20 00:40 00:40 00:40 WBC 13.8 H RBC 4.83 Hgb 14.1 Hct 41.1 MCV 85.1 MCH 29.2 MCHC 34.3 RDW Std Deviation 41.1 RDW Coeff of Stephanie 13.2 Plt Count 243 MPV 9.3 Immature Gran % (Auto) 0.400 Neut % (Auto) 90.5 H Lymph % (Auto) 5.7 L [place] % (Auto) 3.1 Eos % (Auto) 0.1 Baso % (Auto) 0.2 Absolute Neuts (auto) 12.4 H Absolute Lymphs (auto) 0.79 L Nucleated RBC % 0 Sodium 132 L Potassium 2.9 L Chloride 96 L Carbon Dioxide 28.0 Anion Gap 8 BUN 26 H Creatinine 1.81 H Estim Creat Clear Calc 32.71 Est GFR (MDRD) Af Amer 48 L Est GFR (MDRD) Non-Af 40 L BUN/Creatinine Ratio 14.4 Glucose 134 H Lactic Acid 1.9 Calcium 8.7 Total Bilirubin 0.70 AST 48 H ALT 46 Alkaline Phosphatase 82 Troponin I 0.049 H B-Natriuretic Peptide Total Protein 7.2 Albumin 3.1 L Globulin 4.1 Albumin/Globulin Ratio 0.8 L Procalcitonin 12/07/20 12/07/20 12/07/20 00:40 04:15 04:15 WBC 13.7 H RBC 4.27 L Hgb 12.4 L Hct 36.3 L MCV 85.0 MCH 29.0 MCHC 34.2 RDW Std Deviation 41.6 RDW Coeff of Stephanie 13.3 Plt Count 219 MPV 9.6 Immature Gran % (Auto) Neut % (Auto) Lymph % (Auto) [place] % (Auto) Eos % (Auto) Baso % (Auto) Absolute Neuts (auto) Absolute Lymphs (auto) Nucleated RBC % Sodium Potassium Chloride Carbon Dioxide Anion Gap BUN Creatinine Estim Creat Clear Calc Est GFR (MDRD) Af Amer Est GFR (MDRD) Non-Af BUN/Creatinine Ratio Glucose Lactic Acid Calcium Total Bilirubin AST ALT Alkaline Phosphatase Troponin I B-Natriuretic Peptide 47.3 Total Protein Albumin Globulin Albumin/Globulin Ratio Procalcitonin 1.82 H 12/07/20 12/07/20 04:15 04:15 WBC RBC Hgb Hct MCV MCH MCHC RDW Std Deviation RDW Coeff of Stephanie Plt Count MPV Immature Gran % (Auto) Neut % (Auto) Lymph % (Auto) [place] % (Auto) Eos % (Auto) Baso % (Auto) Absolute Neuts (auto) Absolute Lymphs (auto) Nucleated RBC % Sodium 135 L Potassium 3.3 L Chloride 100 Carbon Dioxide 25.0 Anion Gap 10 BUN 25 H Creatinine 1.67 H Estim Creat Clear Calc 35.45 Est GFR (MDRD) Af Amer 53 L Est GFR (MDRD) Non-Af 44 L BUN/Creatinine Ratio 15.0 Glucose 154 H Lactic Acid Calcium 7.9 L Total Bilirubin 0.80 AST 50 H ALT 45 Alkaline Phosphatase 72 Troponin I 0.051 H B-Natriuretic Peptide Total Protein 6.4 Albumin 2.8 L Globulin 3.6 Albumin/Globulin Ratio 0.8 L Procalcitonin Micro: Microbiology 12/07/20 00:50 Nasal Secretion SARS-CoV-2 Antigen (Rapid) - Final SARS-CoV-2 (COVID 19) ABG Data ABG results: ABG 12/07/20 03:09 Specimen Type ART Sample Site R Radial pH 7.47 H Bicarbonate Actual 23.5 Total CO2 25 Base Excess 0 O2 Saturation 94 L O2 % 85 ABG pCO2 32.7 L ABG pO2 67 L Stan Test Positive Respiration Rate 12 O2 Delivery Device BiPAP Vent Mode NIV Clinical Comments BiPAP 18/05 Radiography Diagnostic Testing: Radiology Impression Chest X-Ray 12/07/20 01:30 IMPRESSION: Diffuse bilateral airspace disease which may represent pneumonia. at 0200 Reported and signed by: Bobo Verduzco MD Electronically Signed: Bobo Verduzco MD at 1:59 EDT Tel , Service support , Physical Exam Const alert, oriented x3 and no apparent distress Exam Limitations: no limitations HEENT head/scalp atraumatic Head and Scalp: normocephalic Eyes PERRL and EOMs intact bilaterally Neck no lymphadenopathy and supple Resp Resp Narrative: diminished breath sounds bibasally, no wheezes or crackles. On BIPAP Cardio regular rate, regular rhythm, S1 normal heart sound and no rub GI normal to inspection, nondistended, normoactive bowel sounds, soft to palpation and non-tender Extremity normal to inspection, full ROM and no clubbing, cyanosis or edema Skin no rashes or lesions noted and skin turgor normal Neuro oriented x3, CN's II-XII intact bilaterally and moves all extremities Sensorium / Orientation: awake Psych affect normal Assessment & Plan Assessment/Plan (1) Acute hypoxemic respiratory failure: Status: Acute Code(s): J96.01 - Acute respiratory failure with hypoxia (2) COVID-19: Status: Acute Code(s): U07.1 - COVID-19 (3) Hypertension: Status: Chronic Code(s): I10 - Essential (primary) hypertension Qualifiers: Hypertension type: essential hypertension Qualified Code(s): I10 - Essential (primary) hypertension (4) Elevated troponin: Status: Acute Code(s): R77.8 - Other specified abnormalities of plasma proteins Plan: #Acute hypoxic respiratory failure due to COVID 19 infection * Patient remains on BiPAP. States he is feeling better. * Critical care on board. * On remdesivir and Decadron. * Breathing treatments of bronchodilators. * Titrate oxygen to maintain saturation above 90%. * #COVID-19 infection: As above #Hypokalemia: Potassium was 3.3. Will replace and monitor. #CKD stage 3: Cr is 1.67. This is chronic with his baseline being around 1.4- 1.8. We will monitor. #Hypertension: On amlodipine. IV hydralazine as needed DVT prophylaxis: Lovenox 30 mg twice daily Multi Select Codes Visit Charges Visit Charges: 69361 Subs Hosp L3
--- NOTE | 2020-12-07 12:34 | CASEMGMT ---
REDD GALARZA ASSESSMENT COVID + and is in isolation precautions. Pt is also currently on BIPAP. REDD GALARZA placed call to pt's , Joi, for initial transition planning/care coordination assessment. Care providers, pharmacy, and demographics verified/updated at this time. PCP: Dr Fermin Specialists: none Preferred Pharmacy: [facility] Retail Insurance: [employer] [facility] Prescription Benefit: Yes Living Will/HPOA: Per documentation, pt stated, on admission questions, that he has completed these. Per , she is fairly certain that pt has never completed these and thinks pt may not have been thinking clearly when he first came to the hospital. She was made aware, if he has not, and if he would like to in the future, after he is out of isolation precautions, he can contact SW as an out-pt and make appt in the future if he decides he would like to talk with someone about this or would like to utilize [facility] social work for advanced directive completion. She voices understanding. LNOK: , Joi. Has 8 adult children Living Arrangements: Lives w/his in 2-story home. Independent. Works full-time. One daughter, who is in college, lives with them. They also take care of a 26-yr old lady from [facility], who has lived w/them for 12 yrs. She (lady from [facility]) currently is @ [facility] after needing an emergent surgery and plans are for her to stay with another family member for a few weeks d/t pt having COVID. states she () started having COVID symptoms (exhaustion) the same day pt did (last Sat) as her did but she has no symptoms now. She had COVID testing done yesterday and is still waiting on the results. Discussed quarantine precautions w/. Transportation: Pt and both drive. DME: Pt does not use any DME. If pt would need O2 @ discharge, is not sure what DME co is preferred. HHC/SNF: No history of either. CM to follow for home oxygen needs and any further discharge planning/needs. voices no concerns/needs at this time. Advised to ask for CM if any questions/concerns/needs arise. Voices understanding. PLAN: Home Follow for any O2 needs @ d/c. Bella DUBOSE RN, CM
--- NOTE | 2020-12-07 14:17 | CASEMGMT ---
Pt informed RNCM that pt has not completed advance directives. RNCM updated of ability to complete documents as outpt with SW if pt and would be interested when pt is feeling better. SAMUEL Mondragon
--- NOTE | 2020-12-07 14:22 | CHAPLAIN ---
Type of Pastoral Visit ___ Initial Visit ___ Follow-up Visit ___ On-call Visit ___ General Patient Visit ___ Spiritual Assessment ___ Family Conference ___ Bereavement ___ Rapid Response ___ Code Blue ___ Other (describe below) Pastoral Care Referral From ___ Patient ___ Family ___ Nurse ___ Physician ___ Laborer General ___ Quenching Machine Operator ___ Other (describe below) Sacrament/Intervention ___ Active listening ___ Anointing ___ Gnosticism ___ Bereavement ___ Communion ___ Katie exploration ___ ___ Life review ___ Prayer ___ Reconciliation ___ Sacrament of Sick ___ Supportive presence ___ Wedding ___ Other (describe below) Pastoral Comments unable to talk with patient who is in isolation room and is on a BiPap machine
--- NOTE | 2020-12-07 15:15 | CT_ITS ---
STUDY: CTA CHEST REASON FOR EXAM: Male, 70 years old. elevated ddimer RADIATION DOSAGE (If Supplied By Facility): CTDIvol = ( 12.66 ) mGy, DLP = ( 462.28 ) mGycm TECHNIQUE: The examination was performed with the intravenous administration of IV 75mL Isovue-370. Post-processing of the angiographic images was performed, with multiplanar reformation and 3D reconstruction. Individualized dose optimization techniques were used for this CT. COMPARISON: Chest x-ray earlier today FINDINGS: Normal enhancement of the main pulmonary artery and right and left pulmonary arteries. Normal enhancement of the bilateral peripheral pulmonary arteries. There is no demonstrated pulmonary embolism. Normal thoracic aorta and visualized great vessels. There is no demonstrated aortic dissection. Normal heart and pericardium. Normal mediastinum. Normal hilar regions. Normal visualized trachea and bronchi. The lungs are well expanded. Bilateral diffuse patchy groundglass and alveolar densities consistent with bilateral pneumonia, pulmonary edema, or ARDS. Tiny right pleural effusion. Normal chest wall structures. Normal osseous structures. Normal visualized upper abdomen. CT/CTA Chest W/WO Contrast IMPRESSION: 1. No CT evidence of pulmonary embolism. 2. Bilateral pneumonia, pulmonary edema, or ARDS. Electronically Signed: Alberto Adorno MD at 16:31 EDT Tel , Service support ,
--- NOTE | 2020-12-07 16:26 | CON.PCM.ID_ITS ---
Assessment & Plan Assessment/Plan (1) COVID-19: PLAN: covid with hypoxia - sx started 12/02. also sick, test pending. On dex, remdesivir. Will order daily labs. Quarantine for 20 days from sx start. Recommend he and get covid vaccine once they are out of quarantine. Will follow, thank you (2) CKD (chronic kidney disease) stage 3, GFR 30-59 ml/min: QUALIFIERS: Chronic kidney disease stage 3 subtype: stage 3a (GFR 45-59) Qualified Code(s): N18.31 - Chronic kidney disease, stage 3a (3) Acute hypoxemic respiratory failure: HPI Consult Data Date of Consult: 12/07/20 HPI Narrative HPI Narrative: DINO BLANDON, is a 70 M who presented with sx since 12/02/20 with severe headache, aches, fever, chills, cough, SOB. No n/v/d, no change in taste or smell. also sick, test pending. Neither have gotten vaccinated. Came to ED, covid (+), admitted on dex. Full ROS performed and neg except as noted above. [facility] Medical History Hypertension Home Medications amlodipine 10 mg PO DAILY #30 tablet 04/23/16 [Rx Last Taken Unknown] hydrochlorothiazide 25 mg PO DAILY #30 tablet 04/23/16 [Rx Last Taken Unknown] Allergy/AdvReac Type Severity Reaction Status Date / Time No Known Allergies Allergy Verified 08/05/19 18:02 Family History (Updated 12/07/20 @ 02:[address] Sourav Arias MD) Other Heart disease Social History Smoking Status: Never smoker Physical Exam Const alert and oriented x3 General Appearance: cooperative HEENT normocephalic and head/scalp atraumatic Eyes PERRL and EOMs intact bilaterally Neck supple and No nodes Resp Auscultation: diminished lung sounds Cardio regular rate and regular rhythm GI normal to inspection, nondistended, normoactive bowel sounds Extremity no clubbing, cyanosis or edema Skin no rashes or lesions noted Neuro CN's II-XII intact bilaterally Lab / Micro Data Result Diagrams: 12/07/20 04:15 12/07/20 04:15 Labs: Laboratory Results - last 24 hr 12/07/20 12/07/20 12/07/20 00:40 00:40 00:40 WBC 13.8 H RBC 4.83 Hgb 14.1 Hct 41.1 MCV 85.1 MCH 29.2 MCHC 34.3 RDW Std Deviation 41.1 RDW Coeff of Stephanie 13.2 Plt Count 243 MPV 9.3 Immature Gran % (Auto) 0.400 Neut % (Auto) 90.5 H Lymph % (Auto) 5.7 L [place] % (Auto) 3.1 Eos % (Auto) 0.1 Baso % (Auto) 0.2 Absolute Neuts (auto) 12.4 H Absolute Lymphs (auto) 0.79 L Nucleated RBC % 0 D-Dimer Quant (PE/DVT) Sodium 132 L Potassium 2.9 L Chloride 96 L Carbon Dioxide 28.0 Anion Gap 8 BUN 26 H Creatinine 1.81 H Estim Creat Clear Calc 32.71 Est GFR (MDRD) Af Amer 48 L Est GFR (MDRD) Non-Af 40 L BUN/Creatinine Ratio 14.4 Glucose 134 H Lactic Acid 1.9 Calcium 8.7 Total Bilirubin 0.70 AST 48 H ALT 46 Alkaline Phosphatase 82 Troponin I 0.049 H B-Natriuretic Peptide Total Protein 7.2 Albumin 3.1 L Globulin 4.1 Albumin/Globulin Ratio 0.8 L Procalcitonin 12/07/20 12/07/20 12/07/20 00:40 04:15 04:15 WBC 13.7 H RBC 4.27 L Hgb 12.4 L Hct 36.3 L MCV 85.0 MCH 29.0 MCHC 34.2 RDW Std Deviation 41.6 RDW Coeff of Stephanie 13.3 Plt Count 219 MPV 9.6 Immature Gran % (Auto) Neut % (Auto) Lymph % (Auto) [place] % (Auto) Eos % (Auto) Baso % (Auto) Absolute Neuts (auto) Absolute Lymphs (auto) Nucleated RBC % D-Dimer Quant (PE/DVT) Sodium Potassium Chloride Carbon Dioxide Anion Gap BUN Creatinine Estim Creat Clear Calc Est GFR (MDRD) Af Amer Est GFR (MDRD) Non-Af BUN/Creatinine Ratio Glucose Lactic Acid Calcium Total Bilirubin AST ALT Alkaline Phosphatase Troponin I B-Natriuretic Peptide 47.3 Total Protein Albumin Globulin Albumin/Globulin Ratio Procalcitonin 1.82 H 12/07/20 12/07/20 12/07/20 04:15 04:15 14:19 WBC RBC Hgb Hct MCV MCH MCHC RDW Std Deviation RDW Coeff of Stephanie Plt Count MPV Immature Gran % (Auto) Neut % (Auto) Lymph % (Auto) [place] % (Auto) Eos % (Auto) Baso % (Auto) Absolute Neuts (auto) Absolute Lymphs (auto) Nucleated RBC % D-Dimer Quant (PE/DVT) 1.90 H* Sodium 135 L Potassium 3.3 L Chloride 100 Carbon Dioxide 25.0 Anion Gap 10 BUN 25 H Creatinine 1.67 H Estim Creat Clear Calc 35.45 Est GFR (MDRD) Af Amer 53 L Est GFR (MDRD) Non-Af 44 L BUN/Creatinine Ratio 15.0 Glucose 154 H Lactic Acid Calcium 7.9 L Total Bilirubin 0.80 AST 50 H ALT 45 Alkaline Phosphatase 72 Troponin I 0.051 H B-Natriuretic Peptide Total Protein 6.4 Albumin 2.8 L Globulin 3.6 Albumin/Globulin Ratio 0.8 L Procalcitonin Micro: Microbiology 12/07/20 00:50 SARS-CoV-2 Antigen (Rapid) - Final Nasal Secretion SARS-CoV-2 (COVID 19) ABG Data ABG results: ABG 12/07/20 03:09 Specimen Type ART Sample Site R Radial pH 7.47 H Bicarbonate Actual 23.5 Total CO2 25 Base Excess 0 O2 Saturation 94 L O2 % 85 ABG pCO2 32.7 L ABG pO2 67 L Stan Test Positive Respiration Rate 12 O2 Delivery Device BiPAP Vent Mode NIV Clinical Comments BiPAP 18/05 Radiology Impression Chest X-Ray 12/07/20 01:30 IMPRESSION: Diffuse bilateral airspace disease which may represent pneumonia. at 0200 Reported and signed by: Bobo Verduzco MD Electronically Signed: Bobo Verduzco MD at 1:59 EDT Tel , Service support ,
[2020-12-07] MEDS: Contrast Allergy Safety Check IV (16:33)
[2020-12-08] VITALS (36 sets, daily range): BP systolic 91–145; BP diastolic 58–98; PULSE 49–75; RESP 12–39; TEMP 36.6–37.1; O2SAT 92–99
--- NOTE | 2020-12-08 04:14 | EKG12_ITS ---
Test Reason : AM EKG Blood Pressure : / mmHG Vent. Rate : 069 BPM Atrial Rate : 069 BPM P-R Int : 150 ms QRS Dur : 092 ms QT Int : 410 ms P-R-T Axes : 049 -30 -19 degrees QTc Int : 439 ms Normal sinus rhythm Left axis deviation Inferior infarct , age undetermined Abnormal ECG When compared with ECG of 07-DEC-2020 05:30, MANUAL COMPARISON REQUIRED, DATA IS UNCONFIRMED Confirmed by JOSE A HOBBS, PUNEET ([id number]), editor in chief newspaper MIGUEL CAMARENA ([id number]) on 12/12/2020 1:30:56 PM Referred By: ANTHONY Confirmed By:MIRYAM NARANJO MD
[2020-12-08 04:34] LABS: Absolute Lymphocyte Count 0.44 X10^3/uL (0.83-4.51); Absolute Neutrophil Count 13.2 X10^3/uL (2.0-7.7); Basophil# 0.01 X10^3/uL; Basophil% 0.1 % (0-1); Hematocrit 38.5 % (40-54); Hemoglobin 12.8 g/dL (13.0-16.5); Lymphocyte # 0.44 X10^3/ul (0.83-4.51); Lymphocyte % 3.1 % (19-41); Mean Corp Hgb Conc 33.2 g/dL (32-36); Mean Corpuscular Hgb 28.6 pg (27.0-32.0); Mean Corpuscular Volume 85.9 fL (80-94); Mean Platelet Vol. 9.6 fl (6.2-12.0); Monocyte# 0.43 X10^3/uL; NRBC Flagged by Analyzer 0 % (0-5); Neutrophil # 13.15 X10^3/uL (2.7-7.7); Neutrophil % 93.2 % (47-70); POSITIVE DIFFERENTIAL YES; Platelet Count 282 K/mm3 (150-450); RBC Distribution Width CV 13.5 % (11.6-14.6); RBC Distribution Width SD 42.5 fl (35.1-43.9); Red Blood Count 4.48 M/mm3 (4.6-6.2); White Blood Count 14.1 K/mm3 (4.4-11.0)
[2020-12-08 04:41] LABS: Differential Indicated SCAN CRITERIA MET
[2020-12-08 04:51] LABS: ALB/GLOB Ratio 0.7 RATIO (0.9-2.4); AST(SGOT) 40 U/L (15-37); Alanine Aminotransfer ALT/SGPT 48 U/L (16-61); Albumin, Serum 2.8 g/dL (3.2-5.0); Alkaline Phosphatase 76 U/L (45-117); Anion Gap 9 (5-15); BUN 37 mg/dL (7-18); BUN/Creat Ratio 21.5 RATIO (10-20); Chloride 102 mmol/L (98-107); Creatinine, Serum 1.72 mg/dL (0.70-1.30); EST Glomerular Filtration Rate 42 mL/min (>60); Est Glom Filt Rate - Afr Amer 51 mL/min (>60); Estimated Creatinine Clearance 34.42 ml/min; Globulin 4.1 g/dL (2.2-4.2); Glucose 179 mg/dL (74-106); Potassium 3.4 mmol/L (3.5-5.1); Protein, Total 6.9 g/dL (6.4-8.2); Sodium Level 136 mmol/L (136-145)
[2020-12-08] MEDS: guaiFENesin 1,200 MG Tablet 1200 MG PO ×2 (08:49→21:06)
[2020-12-08] MEDS: dexAMETHasone 2 MG TABLET 6 MG PO (08:49)
[2020-12-08] MEDS: Enoxaparin 30 MG/0.3 ML Syringe SC ×2 (08:50→21:06)
[2020-12-08] MEDS: amLODIPine 10 MG Tablet PO (08:50)
--- NOTE | 2020-12-08 09:41 | CASEMGMT ---
This RN CM participated in ICU multidisciplinary rounds. Pt was switched to airvo 62%, 60L this am and is tolerating well. PT/OT to be ordered and pt to be eval'd today. CM to follow. SStaten RN CM
[2020-12-08] MEDS: Potassium Chloride IVPB 10 MEQ 100 MEQ IV BOLUS ×4 (10:44→16:59)
--- NOTE | 2020-12-08 11:18 | PCM.PN.HOSP ---
Subjective Subjective: Patient seen and examined. He states he is feeling better today. He he is on AirVo. He still coughing which is slightly productive but feels he is improving. Resistance otherwise negative. He has remained hemodynamically stable. D-dimer was noted to be elevated yesterday so he had a CTA of the chest which was negative for any PE. Objective Data Objective Data Vital Signs: Vital Signs Temp Pulse Resp BP Pulse Ox 97.9 F 66 27 H 91/58 L 94 12/08/20 04:00 12/08/20 10:31 12/08/20 10:31 12/08/20 06:00 12/08/20 10:31 Oxygen Flow Rate (L/min) 60 Oxygen Delivery Method Airvo Weight: 214 lb 8 oz Body Mass Index (BMI) 36.3 Finger Stick Blood Glucose 101 Intake & Output: Intake and Output for Last 24 Hours 12/06/20 12/07/20 12/08/20 23:59 23:59 23:59 Intake Total 2053.75 / 2053.75 1430 / 1430 Output Total 950 / 950 350 / 350 Balance 1103.75 / 1103.75 1080 / 1080 Lab / Micro Data Result Diagrams: 12/08/20 04:25 12/08/20 04:25 Labs: Laboratory Results - last 24 hr 12/07/20 12/08/20 12/08/20 14:19 04:25 04:25 WBC 14.1 H RBC 4.48 L Hgb 12.8 L Hct 38.5 L MCV 85.9 MCH 28.6 MCHC 33.2 RDW Std Deviation 42.5 RDW Coeff of Stephanie 13.5 Plt Count 282 MPV 9.6 Immature Gran % (Auto) 0.600 Neut % (Auto) 93.2 H Lymph % (Auto) 3.1 L [place] % (Auto) 3.0 Eos % (Auto) 0.0 Baso % (Auto) 0.1 Absolute Neuts (auto) 13.2 H Absolute Lymphs (auto) 0.44 L Nucleated RBC % 0 D-Dimer Quant (PE/DVT) 1.90 H* Sodium 136 Potassium 3.4 L Chloride 102 Carbon Dioxide 25.0 Anion Gap 9 BUN 37 H Creatinine 1.72 H Estim Creat Clear Calc 34.42 Est GFR (MDRD) Af Amer 51 L Est GFR (MDRD) Non-Af 42 L BUN/Creatinine Ratio 21.5 H Glucose 179 H Calcium 8.0 L Total Bilirubin 0.50 AST 40 H ALT 48 Alkaline Phosphatase 76 Total Protein 6.9 Albumin 2.8 L Globulin 4.1 Albumin/Globulin Ratio 0.7 L Micro: Microbiology 12/07/20 00:50 Nasal Secretion SARS-CoV-2 Antigen (Rapid) - Final SARS-CoV-2 (COVID 19) Radiography Diagnostic Testing: Radiology Impression Chest CTA 12/07/20 15:15 IMPRESSION: 1. No CT evidence of pulmonary embolism. 2. Bilateral pneumonia, pulmonary edema, or ARDS. Electronically Signed: Alberto Adorno MD at 16:31 EDT Tel , Service support , Physical Exam Narrative Alert and oriented x3 Nontraumatic; normocephalic Tachypnea; appears short of breath with use of accessory muscles or conversational dyspnea. Lungs with rales Heart sounds S1-S2. No murmur, gallop or rubs. Abdomen bowel sounds present soft, nontender nondistended Extremity without edema cyanosis or clubbing. Const alert, oriented x3 and no apparent distress Exam Limitations: no limitations HEENT head/scalp atraumatic Eyes PERRL and EOMs intact bilaterally Neck no lymphadenopathy and supple Resp Resp Narrative: diminished breath sounds bibasally, mild crackles bilaterally. On AirVo Cardio regular rate, regular rhythm, S1 normal heart sound and no rub GI normal to inspection, nondistended, normoactive bowel sounds, soft to palpation and non-tender Extremity normal to inspection, full ROM and no clubbing, cyanosis or edema Skin no rashes or lesions noted and skin turgor normal Neuro oriented x3, CN's II-XII intact bilaterally and moves all extremities Sensorium / Orientation: awake Psych affect normal Assessment & Plan Assessment/Plan (1) Acute hypoxemic respiratory failure: (2) COVID-19: (3) Elevated troponin: (4) CKD (chronic kidney disease) stage 3, GFR 30-59 ml/min: QUALIFIERS: Chronic kidney disease stage 3 subtype: stage 3a (GFR 45-59) Qualified Code(s): N18.31 - Chronic kidney disease, stage 3a (5) Hypertension: QUALIFIERS: Hypertension type: essential hypertension Qualified Code(s): I10 - Essential (primary) hypertension PLAN: #Acute hypoxic respiratory failure due to COVID 19 infection Patient now on air Vo. He feels he is improving. Critical care on board. On remdesivir and Decadron. Breathing treatments with bronchodilators. Titrate oxygen to maintain saturation above 90%. #COVID-19 infection: As above #Hypokalemia: Potassium was 3.4. Will replace and monitor. #Elevated D-dimer: D-dimer was 1.9. CT of the chest done yesterday was negative for any PE. #CKD stage 3: Cr is 1.72. This is chronic with his baseline being around 1.4-1.8. We will monitor. #Hypertension: On amlodipine. IV hydralazine as needed DVT prophylaxis: Lovenox 30 mg twice daily Visit Charges Inpatient E&M: 85805 [facility] Hosp L3
--- NOTE | 2020-12-08 14:27 | PN.CC_ITS ---
Assessment & Plan Assessment/Plan (1) Acute hypoxemic respiratory failure: (2) COVID-19: PLAN: RECOMMENDATIONS: 1. Transition patient from BiPAP to heated high flow oxygen as tolerated. 2. Wean FiO2 to maintain oxygen saturations at or above 90%. 3. Continue remdesivir as ordered. Continue to monitor liver and renal function. 4. Continue Decadron to complete 10-day treatment course. 5. Continue twice daily Lovenox. 6. Encourage incentive spirometer use and mobilize patient as tolerated. IMPRESSIONS: 1. Acute hypoxemic respiratory failure secondary to COVID-19 pneumonia The patient presented to the hospital with 1 week of Covid-like symptoms and was subsequently found to be positive for coronavirus. He has been initiated on noninvasive positive pressure ventilatory support, which will be continued as tolerated. Plan to wean patient to heated high flow oxygen. Wean FiO2 to maintain oxygen saturations at or above 90%. The patient will be continued on remdesivir and Decadron as ordered. CTA was negative for PE. Therefore, the patient will be continued on Lovenox as ordered. Encourage incentive spirometer use and mobilize patient as tolerated. 2. Advanced age/hypertension Complicates care, management, recovery and prognosis. Continue home medications as indicated. This note was generated with [employer] dictation software. It may contain incorrect words, spelling, and punctuation that were not noted in checking the note before signing. Subjective Subjective: The patient was seen and examined at the bedside this morning. Events from the last 24 hours have been reviewed. The patient is currently afebrile, hemodynamically stable and maintaining appropriate oxygen saturations on Airvo heated high flow oxygen with an FiO2 requirement of 65% and flow rate of 60 L/min. The patient once again tolerated BiPAP overnight. Objective Data Objective Data The patient's most recent lab work, culture data and imaging studies have all been personally reviewed. Rapid coronavirus antigen testing was positive on December 07. Blood cultures have demonstrated no growth to date. Vital Signs: Vital Signs Temp Pulse Resp BP Pulse Ox 98.8 F 64 32 H 114/62 94 12/08/20 12:00 12/08/20 12:00 12/08/20 12:00 12/08/20 12:12/08/20 12:00 Oxygen Flow Rate (L/min) 60 Oxygen Delivery Method Airvo Weight: 214 lb 8 oz Body Mass Index (BMI) 36.3 Finger Stick Blood Glucose 101 Intake & Output: Intake and Output for Last 24 Hours 12/06/20 12/07/20 12/08/20 23:59 23:59 23:59 Intake Total 2053.75 / 2053.75 1630 / 1630 Output Total 950 / 950 650 / 650 Balance 1103.75 / 1103.75 980 / 980 Lab / Micro Data Attestation: I reviewed the patient's lab results. Result Diagrams: 12/10/20 04:55 12/10/20 04:55 Labs: Laboratory Results - last 24 hr 12/07/20 12/08/20 12/08/20 14:19 04:25 04:25 WBC 14.1 H RBC 4.48 L Hgb 12.8 L Hct 38.5 L MCV 85.9 MCH 28.6 MCHC 33.2 RDW Std Deviation 42.5 RDW Coeff of Stephanie 13.5 Plt Count 282 MPV 9.6 Immature Gran % (Auto) 0.600 Neut % (Auto) 93.2 H Lymph % (Auto) 3.1 L [place] % (Auto) 3.0 Eos % (Auto) 0.0 Baso % (Auto) 0.1 Absolute Neuts (auto) 13.2 H Absolute Lymphs (auto) 0.44 L Nucleated RBC % 0 D-Dimer Quant (PE/DVT) 1.90 H* Sodium 136 Potassium 3.4 L Chloride 102 Carbon Dioxide 25.0 Anion Gap 9 BUN 37 H Creatinine 1.72 H Estim Creat Clear Calc 34.42 Est GFR (MDRD) Af Amer 51 L Est GFR (MDRD) Non-Af 42 L BUN/Creatinine Ratio 21.5 H Glucose 179 H Calcium 8.0 L Total Bilirubin 0.50 AST 40 H ALT 48 Alkaline Phosphatase 76 Total Protein 6.9 Albumin 2.8 L Globulin 4.1 Albumin/Globulin Ratio 0.7 L Micro: Microbiology 12/07/20 00:50 Nasal Secretion SARS-CoV-2 Antigen (Rapid) - Final SARS-CoV-2 (COVID 19) Radiography Diagnostic Testing: Radiology Impression Chest CTA 12/07/20 15:15 IMPRESSION: 1. No CT evidence of pulmonary embolism. 2. Bilateral pneumonia, pulmonary edema, or ARDS. Electronically Signed: Alberto Adorno MD at 16:31 EDT Tel , Service support , Physical Exam Const alert, oriented x3 and no apparent distress General Appearance: cooperative HEENT normocephalic and head/scalp atraumatic Eyes PERRL and EOMs intact bilaterally Chest inspection of chest normal Resp Effort and Inspection: tachypneic Auscultation: diminished lung sounds; Negative for rales, rhonchi or wheezes Cardio regular rate and regular rhythm GI normal to inspection, nondistended, normoactive bowel sounds Extremity no clubbing, cyanosis or edema Skin no rashes or lesions noted Neuro oriented x3, CN's II-XII intact bilaterally and moves all extremities Psych cooperative and affect normal Appearance: well kempt Charges/Coding Visit Charges Inpatient E&M: 31284 Subs Hosp L3
--- NOTE | 2020-12-08 14:27 | CHAPLAIN ---
Type of Pastoral Visit ___ Initial Visit ___ Follow-up Visit ___ On-call Visit ___ General Patient Visit ___ Spiritual Assessment ___ Family Conference ___ Bereavement ___ Rapid Response ___ Code Blue ___ Other (describe below) Pastoral Care Referral From ___ Patient ___ Family ___ Nurse ___ Physician ___ Biostatistician ___ Cloth Winding Supervisor ___ Other (describe below) Sacrament/Intervention ___ Active listening ___ Anointing ___ Caodaism ___ Bereavement ___ Communion ___ Katie exploration ___ ___ Life review ___ Prayer ___ Reconciliation ___ Sacrament of Sick ___ Supportive presence ___ Wedding ___ Other (describe below) Pastoral Comments phone call attempted into isolation room; no answer
--- NOTE | 2020-12-08 18:03 | NURSING ---
education re chronic illness deferred till acute illness resolving
[2020-12-09] VITALS (24 sets, daily range): BP systolic 100–140; BP diastolic 62–86; PULSE 44–71; RESP 12–36; TEMP 35.6–36.6; O2SAT 91–97
[2020-12-09 05:00] LABS: Absolute Lymphocyte Count 0.63 X10^3/uL (0.83-4.51); Absolute Neutrophil Count 10.5 X10^3/uL (2.0-7.7); Basophil# 0.02 X10^3/uL; Basophil% 0.2 % (0-1); Hematocrit 38.7 % (40-54); Hemoglobin 12.9 g/dL (13.0-16.5); Lymphocyte # 0.63 X10^3/ul (0.83-4.51); Lymphocyte % 5.3 % (19-41); Mean Corp Hgb Conc 33.3 g/dL (32-36); Mean Corpuscular Hgb 28.7 pg (27.0-32.0); Mean Corpuscular Volume 86.2 fL (80-94); Mean Platelet Vol. 9.9 fl (6.2-12.0); Monocyte# 0.51 X10^3/uL; Monocyte% 4.3 % (0-10); NRBC Flagged by Analyzer 0 % (0-5); Neutrophil # 10.51 X10^3/uL (2.7-7.7); Platelet Count 317 K/mm3 (150-450); RBC Distribution Width CV 13.8 % (11.6-14.6); RBC Distribution Width SD 43.8 fl (35.1-43.9); Red Blood Count 4.49 M/mm3 (4.6-6.2); White Blood Count 11.8 K/mm3 (4.4-11.0)
[2020-12-09 05:18] LABS: ALB/GLOB Ratio 0.7 RATIO (0.9-2.4); AST(SGOT) 40 U/L (15-37); Alanine Aminotransfer ALT/SGPT 47 U/L (16-61); Albumin, Serum 2.4 g/dL (3.2-5.0); Alkaline Phosphatase 63 U/L (45-117); Anion Gap 9 (5-15); BUN 53 mg/dL (7-18); BUN/Creat Ratio 34.2 RATIO (10-20); Calcium,Total 7.4 mg/dL (8.5-10.1); Chloride 104 mmol/L (98-107); Creatinine, Serum 1.55 mg/dL (0.70-1.30); EST Glomerular Filtration Rate 48 mL/min (>60); Est Glom Filt Rate - Afr Amer 58 mL/min (>60); Estimated Creatinine Clearance 38.19 ml/min; Globulin 3.6 g/dL (2.2-4.2); Glucose 175 mg/dL (74-106); Potassium 3.9 mmol/L (3.5-5.1); Sodium Level 137 mmol/L (136-145)
--- NOTE | 2020-12-09 07:35 | PCM.PN.INT ---
Assessment & Plan Assessment/Plan (1) Acute hypoxemic respiratory failure: (2) COVID-19: PLAN: RECOMMENDATIONS: 1. Wean FiO2 to maintain oxygen saturations at or above 90%. 2. Continue remdesivir as ordered. Continue to monitor liver and renal function. 3. Continue Decadron to complete 10-day treatment course. 4. Continue twice daily Lovenox. 5. Encourage incentive spirometer use and mobilize patient as tolerated. IMPRESSIONS: 1. Acute hypoxemic respiratory failure secondary to COVID-19 pneumonia The patient presented to the hospital with 1 week of Covid-like symptoms and was subsequently found to be positive for coronavirus. He has been initiated on noninvasive positive pressure ventilatory support, which will be continued as tolerated. Plan to wean patient to heated high flow oxygen. Wean FiO2 to maintain oxygen saturations at or above 90%. The patient will be continued on remdesivir and Decadron as ordered. CTA was negative for PE. Therefore, the patient will be continued on Lovenox as ordered. Encourage incentive spirometer use and mobilize patient as tolerated. 2. Advanced age/hypertension Complicates care, management, recovery and prognosis. Continue home medications as indicated. This note was generated with [employer] dictation software. It may contain incorrect words, spelling, and punctuation that were not noted in checking the note before signing. Subjective Subjective: The patient was seen and examined at the bedside this morning. Events from the last 24 hours have been reviewed. The patient is currently afebrile, hemodynamically stable and maintaining appropriate oxygen saturations on Airvo heated high flow with an FiO2 requirement of 55% and flow rate of 60 L/min. The patient once again tolerated BiPAP overnight. Objective Data Objective Data The patient's most recent lab work, culture data and imaging studies have all been personally reviewed. Rapid coronavirus antigen testing was positive on December 07. Blood cultures have demonstrated no growth to date. Vital Signs: Vital Signs Temp Pulse Resp BP Pulse Ox 97.1 F L 49 L 25 H 115/74 93 12/09/20 04:00 12/09/20 07:00 12/09/20 07:00 12/09/20 07:00 12/09/20 07:00 Oxygen Flow Rate (L/min) 60 Oxygen Delivery Method Bi-pap Weight: 214 lb 1.6 oz Body Mass Index (BMI) 36.3 Finger Stick Blood Glucose 101 Intake & Output: Intake and Output for Last 24 Hours 12/07/20 12/08/20 12/09/20 23:59 23:59 23:59 Intake Total 2053.75 / 2053.75 2460 / 2460 0 / 0 Output Total 950 / 950 1100 / 1100 300 / 300 Balance 1103.75 / 1103.75 1360 / 1360 -300 / -300 Lab / Micro Data Attestation: I reviewed the patient's lab results. Result Diagrams: 12/10/20 04:55 12/10/20 04:55 Labs: Laboratory Results - last 24 hr 12/09/20 12/09/20 04:55 04:55 WBC 11.8 H RBC 4.49 L Hgb 12.9 L Hct 38.7 L MCV 86.2 MCH 28.7 MCHC 33.3 RDW Std Deviation 43.8 RDW Coeff of Stephanie 13.8 Plt Count 317 MPV 9.9 Immature Gran % (Auto) 1.200 H Neut % (Auto) 89.0 H Lymph % (Auto) 5.3 L [place] % (Auto) 4.3 Eos % (Auto) 0.0 Baso % (Auto) 0.2 Absolute Neuts (auto) 10.5 H Absolute Lymphs (auto) 0.63 L Nucleated RBC % 0 Sodium 137 Potassium 3.9 Chloride 104 Carbon Dioxide 24.0 Anion Gap 9 BUN 53 H Creatinine 1.55 H Estim Creat Clear Calc 38.19 Est GFR (MDRD) Af Amer 58 L Est GFR (MDRD) Non-Af 48 L BUN/Creatinine Ratio 34.2 H Glucose 175 H Calcium 7.4 L Total Bilirubin 0.40 AST 40 H ALT 47 Alkaline Phosphatase 63 Total Protein 6.0 L Albumin 2.4 L Globulin 3.6 Albumin/Globulin Ratio 0.7 L Micro: Microbiology 12/07/20 00:50 Nasal Secretion SARS-CoV-2 Antigen (Rapid) - Final SARS-CoV-2 (COVID 19) Physical Exam Const alert, oriented x3 and no apparent distress General Appearance: cooperative HEENT normocephalic, head/scalp atraumatic and moist oral mucous membranes Eyes PERRL and EOMs intact bilaterally Chest inspection of chest normal Resp normal respiratory effort and no use of accessory muscles Auscultation: diminished lung sounds; Negative for rales, rhonchi or wheezes Cardio regular rate and regular rhythm GI normal to inspection, nondistended, normoactive bowel sounds Extremity no clubbing, cyanosis or edema Skin no rashes or lesions noted Neuro oriented x3, CN's II-XII intact bilaterally, moves all extremities and no focal motor deficits Psych cooperative and affect normal Appearance: well swapnil Charges/Coding Visit Charges Inpatient E&M: [id number] Subs Hosp L3
[2020-12-09] MEDS: amLODIPine 10 MG Tablet PO (08:55)
[2020-12-09] MEDS: dexAMETHasone 2 MG TABLET 6 MG PO (08:55)
[2020-12-09] MEDS: guaiFENesin 1,200 MG Tablet 1200 MG PO ×2 (08:55→21:10)
[2020-12-09] MEDS: Enoxaparin 30 MG/0.3 ML Syringe SC ×2 (08:56→21:10)
--- NOTE | 2020-12-09 13:54 | PCM.PN.ID ---
Physical Exam Narrative Feeling better, still some dyspnea, no fever Const alert General Appearance: cooperative Resp Effort and Inspection: Negative for uses accessory muscles Cardio regular rate and regular rhythm Skin no rashes or lesions noted ID ID: Route of nutrition/ use of supplements: [] Nutritional Intake: [] IV Site: [] Nicole Catheter: [] Assessment & Plan Assessment/Plan (1) COVID-19: PLAN: covid with hypoxia - sx started 12/02. also sick. On dex, remdesivir. Quarantine for 20 days from sx start. Recommend he and get covid vaccine once they are out of quarantine. Reviewed labs. Will follow (2) CKD (chronic kidney disease) stage 3, GFR 30-59 ml/min: QUALIFIERS: Chronic kidney disease stage 3 subtype: stage 3a (GFR 45-59) Qualified Code(s): N18.31 - Chronic kidney disease, stage 3a (3) Acute hypoxemic respiratory failure:
--- NOTE | 2020-12-09 14:33 | PN.HOSP_ITS ---
Subjective Subjective: Patient seen and examined. He is off BiPAP today. He is now on 6L of oxygen by nasal canula. He feels much better and states his breathing is getting much better. He has no other complaints and review of systems otherwise negative. He has remained hemodynamically stable. Objective Data Objective Data Vital Signs: Vital Signs Temp Pulse Resp BP Pulse Ox 97.9 F 57 L 23 H 115/67 94 12/09/20 08:00 12/09/20 11:00 12/09/20 11:00 12/09/20 11:00 12/09/20 11:10 Oxygen Flow Rate (L/min) 6 Oxygen Delivery Method Nasal Cannula Weight: 214 lb 1.6 oz Body Mass Index (BMI) 36.3 Finger Stick Blood Glucose 101 Intake & Output: Intake and Output for Last 24 Hours 12/07/20 12/08/20 12/09/20 23:59 23:59 23:59 Intake Total 2053.75 / 2053.75 2460 / 2460 580 / 580 Output Total 950 / 950 1100 / 1100 650 / 650 Balance 1103.75 / 1103.75 1360 / 1360 -70 / -70 Lab / Micro Data Result Diagrams: 12/09/20 04:55 12/09/20 04:55 Labs: Laboratory Results - last 24 hr 12/09/20 12/09/20 04:55 04:55 WBC 11.8 H RBC 4.49 L Hgb 12.9 L Hct 38.7 L MCV 86.2 MCH 28.7 MCHC 33.3 RDW Std Deviation 43.8 RDW Coeff of Stephanie 13.8 Plt Count 317 MPV 9.9 Immature Gran % (Auto) 1.200 H Neut % (Auto) 89.0 H Lymph % (Auto) 5.3 L [place] % (Auto) 4.3 Eos % (Auto) 0.0 Baso % (Auto) 0.2 Absolute Neuts (auto) 10.5 H Absolute Lymphs (auto) 0.63 L Nucleated RBC % 0 Sodium 137 Potassium 3.9 Chloride 104 Carbon Dioxide 24.0 Anion Gap 9 BUN 53 H Creatinine 1.55 H Estim Creat Clear Calc 38.19 Est GFR (MDRD) Af Amer 58 L Est GFR (MDRD) Non-Af 48 L BUN/Creatinine Ratio 34.2 H Glucose 175 H Calcium 7.4 L Total Bilirubin 0.40 AST 40 H ALT 47 Alkaline Phosphatase 63 Total Protein 6.0 L Albumin 2.4 L Globulin 3.6 Albumin/Globulin Ratio 0.7 L Micro: Microbiology 12/07/20 00:49 Blood Culture (Wb) - Anticubital Left Blood Culture - Preliminary No growth in 48 hours. 12/07/20 00:40 Blood Culture (Wb) - Anticubital Right Blood Culture - Preliminary No growth in 48 hours. 12/07/20 00:50 Nasal Secretion SARS-CoV-2 Antigen (Rapid) - Final SARS-CoV-2 (COVID 19) Physical Exam Narrative Alert and oriented x3 Nontraumatic; normocephalic Tachypnea; appears short of breath with use of accessory muscles or conversational dyspnea. Lungs with rales Heart sounds S1-S2. No murmur, gallop or rubs. Abdomen bowel sounds present soft, nontender nondistended Extremity without edema cyanosis or clubbing. Const alert, oriented x3 and no apparent distress Exam Limitations: no limitations HEENT head/scalp atraumatic Eyes PERRL and EOMs intact bilaterally Neck no lymphadenopathy and supple Resp Resp Narrative: diminished breath sounds bibasally, mild crackles bilaterally. On 6L of oxygen by nasal cannula Cardio regular rate, regular rhythm, S1 normal heart sound and no rub GI normal to inspection, nondistended, normoactive bowel sounds, soft to palpation and non-tender Extremity normal to inspection, full ROM and no clubbing, cyanosis or edema Skin no rashes or lesions noted and skin turgor normal Neuro oriented x3, CN's II-XII intact bilaterally and moves all extremities Sensorium / Orientation: awake Psych affect normal Assessment & Plan Assessment/Plan (1) Acute hypoxemic respiratory failure: (2) COVID-19: (3) Elevated troponin: (4) CKD (chronic kidney disease) stage 3, GFR 30-59 ml/min: QUALIFIERS: Chronic kidney disease stage 3 subtype: stage 3a (GFR 45-59) Qualified Code(s): N18.31 - Chronic kidney disease, stage 3a (5) Hypertension: QUALIFIERS: Hypertension type: essential hypertension Qualified Code(s): I10 - Essential (primary) hypertension PLAN: #Acute hypoxic respiratory failure due to COVID 19 infection * he is now on 6L of oxygen by nasal canula * Critical care on board. * On remdesivir and Decadron. * Breathing treatments with bronchodilators. * Titrate oxygen to maintain saturation above 90%. * #COVID-19 infection: As above #Hypokalemia: resolved #Elevated D-dimer: D-dimer was 1.9. CT of the chest done was negative for any PE. #CKD stage 3B: Cr is 1.55. This is chronic with his baseline being around 1.4- 1.8. We will monitor. #Hypertension: On amlodipine. IV hydralazine as needed DVT prophylaxis: Lovenox 30 mg twice daily Visit Charges Inpatient E&M: 50453 Subs Hosp L3
--- NOTE | 2020-12-09 17:56 | NURSING ---
education re chronic illness deferred till acute illness resolving
[2020-12-10] VITALS (15 sets, daily range): BP systolic 108–143; BP diastolic 62–89; PULSE 52–68; RESP 19–25; TEMP 36.1–36.7; O2SAT 86–95
--- NOTE | 2020-12-10 02:01 | NURSING ---
pt noted to be sleeping soundly. 0s sats on 2l n/c consistently at 87-89%. increased to 3l n/c at this time. will continue to monitor
[2020-12-10 05:03] LABS: Absolute Lymphocyte Count 0.61 X10^3/uL (0.83-4.51); Absolute Neutrophil Count 10.5 X10^3/uL (2.0-7.7); Basophil# 0.04 X10^3/uL; Basophil% 0.3 % (0-1); Hematocrit 39.5 % (40-54); Hemoglobin 13.4 g/dL (13.0-16.5); Lymphocyte # 0.61 X10^3/ul (0.83-4.51); Lymphocyte % 5.1 % (19-41); Mean Corp Hgb Conc 33.9 g/dL (32-36); Mean Corpuscular Hgb 28.9 pg (27.0-32.0); Mean Corpuscular Volume 85.1 fL (80-94); Monocyte# 0.49 X10^3/uL; Monocyte% 4.1 % (0-10); NRBC Flagged by Analyzer 0 % (0-5); Neutrophil # 10.52 X10^3/uL (2.7-7.7); Neutrophil % 88.7 % (47-70); Platelet Count 346 K/mm3 (150-450); RBC Distribution Width CV 13.4 % (11.6-14.6); RBC Distribution Width SD 42.1 fl (35.1-43.9); Red Blood Count 4.64 M/mm3 (4.6-6.2); White Blood Count 11.9 K/mm3 (4.4-11.0)
[2020-12-10 05:26] LABS: ALB/GLOB Ratio 0.7 RATIO (0.9-2.4); AST(SGOT) 36 U/L (15-37); Alanine Aminotransfer ALT/SGPT 56 U/L (16-61); Albumin, Serum 2.5 g/dL (3.2-5.0); Alkaline Phosphatase 83 U/L (45-117); Anion Gap 8 (5-15); BUN 61 mg/dL (7-18); BUN/Creat Ratio 40.1 RATIO (10-20); Chloride 106 mmol/L (98-107); Creatinine, Serum 1.52 mg/dL (0.70-1.30); EST Glomerular Filtration Rate 49 mL/min (>60); Est Glom Filt Rate - Afr Amer 59 mL/min (>60); Estimated Creatinine Clearance 38.95 ml/min; Globulin 3.6 g/dL (2.2-4.2); Glucose 208 mg/dL (74-106); Potassium 3.7 mmol/L (3.5-5.1); Protein, Total 6.1 g/dL (6.4-8.2); Sodium Level 137 mmol/L (136-145)
--- NOTE | 2020-12-10 06:44 | PCM.PN.INT ---
Assessment & Plan Assessment/Plan (1) Acute hypoxemic respiratory failure: (2) COVID-19: PLAN: RECOMMENDATIONS: 1. Wean supplemental oxygen to maintain saturations at or above 90%. 2. Continue remdesivir as ordered. Continue to monitor liver and renal function. 3. Continue Decadron to complete 10-day treatment course. 4. Continue twice daily Lovenox. 5. Encourage incentive spirometer use and mobilize patient as tolerated. IMPRESSIONS: 1. Acute hypoxemic respiratory failure secondary to COVID-19 pneumonia The patient presented to the hospital with 1 week of Covid-like symptoms and was subsequently found to be positive for coronavirus. He has been initiated on noninvasive positive pressure ventilatory support, which will be continued as tolerated. Plan to wean supplemental oxygen saturations at or above 90%. The patient will be continued on remdesivir and Decadron as ordered. CTA was negative for PE. Therefore, the patient will be continued on Lovenox as ordered. Encourage incentive spirometer use and mobilize patient as tolerated. 2. Advanced age/hypertension Complicates care, management, recovery and prognosis. Continue home medications as indicated. This note was generated with [employer]Home dictation software. It may contain incorrect words, spelling, and punctuation that were not noted in checking the note before signing. Subjective Subjective: The patient was seen and examined at the bedside this morning. Events from the last 24 hours have been reviewed. The patient is currently afebrile, hemodynamically stable and maintaining appropriate oxygen saturations on 3 L/min via nasal cannula. The patient is currently documented to be overall net +2.2 L for the hospital admission. The patient remains on remdesivir, Decadron and twice daily Lovenox. Objective Data Objective Data The patient's most recent lab work, culture data and imaging studies have all been personally reviewed. Rapid coronavirus antigen testing was positive on December 07. Blood cultures have demonstrated no growth to date. Vital Signs: Vital Signs Temp Pulse Resp BP Pulse Ox 97.0 F L 52 L 22 H 143/89 H 90 12/10/20 05:58 12/10/20 06:25 12/10/20 06:25 12/10/20 05:58 12/10/20 06:25 Oxygen Flow Rate (L/min) 3 Oxygen Delivery Method Nasal Cannula Weight: 215 lb 12.8 oz Body Mass Index (BMI) 36.3 Finger Stick Blood Glucose 101 Intake & Output: Intake and Output for Last 24 Hours 12/08/20 12/09/20 12/10/20 23:59 23:59 23:59 Intake Total 2460 / 2460 1110 / 1350 240 / 240 Output Total 1100 / 1100 1300 / 1300 300 / 300 Balance 1360 / 1360 -190 / 50 -60 / -60 Lab / Micro Data Attestation: I reviewed the patient's lab results. Result Diagrams: 12/10/20 04:55 12/10/20 04:55 Labs: Laboratory Results - last 24 hr 12/10/20 12/10/20 04:55 04:55 WBC 11.9 H RBC 4.64 Hgb 13.4 Hct 39.5 L MCV 85.1 MCH 28.9 MCHC 33.9 RDW Std Deviation 42.1 RDW Coeff of Stephanie 13.4 Plt Count 346 MPV 10.0 Immature Gran % (Auto) 1.800 H Neut % (Auto) 88.7 H Lymph % (Auto) 5.1 L [place] % (Auto) 4.1 Eos % (Auto) 0.0 Baso % (Auto) 0.3 Absolute Neuts (auto) 10.5 H Absolute Lymphs (auto) 0.61 L Nucleated RBC % 0 Sodium 137 Potassium 3.7 Chloride 106 Carbon Dioxide 23.0 Anion Gap 8 BUN 61 H Creatinine 1.52 H Estim Creat Clear Calc 38.95 Est GFR (MDRD) Af Amer 59 L Est GFR (MDRD) Non-Af 49 L BUN/Creatinine Ratio 40.1 H Glucose 208 H Calcium 8.0 L Total Bilirubin 0.40 AST 36 ALT 56 Alkaline Phosphatase 83 Total Protein 6.1 L Albumin 2.5 L Globulin 3.6 Albumin/Globulin Ratio 0.7 L Micro: Microbiology 12/07/20 00:49 Blood Culture (Wb) - Anticubital Left Blood Culture - Preliminary No growth in 48 hours. 12/07/20 00:40 Blood Culture (Wb) - Anticubital Right Blood Culture - Preliminary No growth in 48 hours. 12/07/20 00:50 Nasal Secretion SARS-CoV-2 Antigen (Rapid) - Final SARS-CoV-2 (COVID 19) Physical Exam Const alert, oriented x3 and no apparent distress General Appearance: cooperative HEENT normocephalic, head/scalp atraumatic and moist oral mucous membranes Eyes PERRL, EOMs intact bilaterally and conjunctivae normal Chest inspection of chest normal Resp normal respiratory effort and no use of accessory muscles Effort and Inspection: tachypneic Auscultation: diminished lung sounds; Negative for rales, rhonchi or wheezes Cardio regular rhythm, S1 normal heart sound and S2 normal heart sound Rate: bradycardia GI normal to inspection, nondistended, normoactive bowel sounds Extremity no clubbing, cyanosis or edema Skin no rashes or lesions noted Neuro oriented x3, CN's II-XII intact bilaterally, moves all extremities and no focal motor deficits Psych cooperative and affect normal Appearance: well martinejessy Charges/Coding Visit Charges Inpatient E&M: 33432 Subs Hosp L2
[2020-12-10] MEDS: Enoxaparin 30 MG/0.3 ML Syringe SC (09:45)
--- NOTE | 2020-12-10 09:45 | CASEMGMT ---
REDD GALARZA noted that pt is to be dc'd. Pt in need of home O2 and to be dc'd on Eliquis. REDD GALARZA called pt room as pt in isolation. Pt provided with local in network DME companies. Pt chose [facility]. Referral called to [facility] and faxed. Pt aware O2 will be delivered to room. Pt also aware this CM will give his nurse an Eliquis card for new medication. Pt verbalized understanding. Rosy nurse given Eliquis card and stated pt interested in HHC. REDD GALARZA called back to pt to discuss HHC, pt to discuss with and later decided that they wanted their son and dtr to care for him in the home and denied HHC. REDD GALARZA called [facility] pharmacy. Eliquis discount applied. Pt does not have a cost. Pt denied further needs.
[2020-12-10] MEDS: guaiFENesin 1,200 MG Tablet 1200 MG PO (09:46)
[2020-12-10] MEDS: dexAMETHasone 2 MG TABLET 6 MG PO (09:46)
[2020-12-10] MEDS: amLODIPine 10 MG Tablet PO (09:46)
--- NOTE | 2020-12-10 10:53 | DS.PCM_ITS ---
Providers Date of Admission: 12/07/20 Primary Care Physician: Dr. Thierry Fermin, Consultations 12/07/20 04:14 Consult: Child Study Team Director / Pulmonary Medicine Routine Consulting Provider: Pulmonary Medicine radha [place] Reason for Consult: covid EMERGENT Consult: No Notified: Yes Date Notified:: 12/07/20 Time Notified: 02:13 Method of Notification: Text 12/07/20 13:40 Consult: Infectious Disease Routine Consulting Provider: Kasi Hunt Reason for Consult: COVID EMERGENT Consult: No Notified: Yes Date Notified:: 12/07/20 Time Notified: 13:40 Method of Notification: Verbal Reason For Visit: ACUTE HYPOXEMIC RESPIRATORY FAILURE Diagnosis Discharge Diagnosis (1) Acute hypoxemic respiratory failure: Status: Acute Code(s): J96.01 - Acute respiratory failure with hypoxia (2) COVID-19: Status: Acute Code(s): U07.1 - COVID-19 Medications at Discharge Home Medications amlodipine 10 mg PO DAILY #30 tablet 04/23/16 hydrochlorothiazide 25 mg PO DAILY #30 tablet 04/23/16 apixaban [Eliquis] 2.5 mg PO BID #28 tab 12/10/20 dexamethasone 6 mg PO DAILY #6 tab 12/10/20 guaifenesin [Mucus Relief ER] 1,200 mg PO BID #60 tab 12/10/20 Hospital Course Operations None Procedures None Summary of Care Provided Minutes Spent on Discharge: 45 Hospital Course: Patient is a 70 y/o male with a PMH of hypertension and CKD stage 3A who was admitted via the ED on 12/07/2020 with a complaint of progressively worsening shortness of breath for 3 days prior to admission. He says he usually uses his family members oxygen at home but this time his shortness of breath was so bad he could use it. He had associated fever, with temperature peaking at 102 Fahrenheit, chills, productive cough and fatigue as well as muscle aches. He had not taken the COVID-19 vaccine. He tested positive for Covid on admission and so was admitted and managed for acute hypoxic respiratory failure due to COVID-19 pneumonia. Was placed on BiPAP in the ED and was admitted to the ICU. Chest x-ray showed diffuse bilateral airspace disease which may represent pneumonia. Was started on IV Decadron and remdesivir was also ordered. Troponin was mildly elevated but this was thought to be due to demand ischemia. BNP was unremarkable. Infectious diseases was also consulted. D-dimer was checked and this was elevated at 1.9 so a CTA of the chest was done which was negative for any evidence of PE. Patient shortness of breath gradually improved and he was weaned off of BiPAP onto airflow. He was subsequently weaned off of airflow onto oxygen by nasal cannula. Patient was weaned down to 2 L of oxygen by nasal cannula. Ambulatory pulse ox done on day of admission showed that he dropped to 87% at rest on room air and with a mbulation, required 6L of oxygen for his oxygen to go up to 90%. He therefore required 6L of oxygen to go home with. He was also discharged home with 2.5mg bid of eliquis for 2 weeks, due to his elevated D Dimer. HE was also discharged home on 12/10/2020/ He is to remain in self isolation till 12/27/2020, and is to use oxygen as needed for shortness of breath. He was also discharged home with a script for PO decadrone 6mg daily x 6 tablets to complete a 10 day course. Patient was seen and examined prior to discharge. He had no complaints and felt well. Review of systems otherwise negative. Labs and vitals reviewed. Home medications reviewed and reconciled. He felt ready to go home. Physical Exam Const alert, oriented x3, no apparent distress and well nourished General Appearance: cooperative and comfortable Exam Limitations: no limitations HEENT normocephalic, head/scalp atraumatic and moist oral mucous membranes Neck no lymphadenopathy Resp normal respiratory effort Resp Narrative: mildly diminished breath sounds bibasally, no wheezes or crackles. on room air. Cardio regular rate, S1 normal heart sound, S2 normal heart sound and no murmurs GI normal to inspection, nondistended, normoactive bowel sounds, soft to palpation, non-tender and non-distended Extremity normal to inspection and full ROM Skin no rashes or lesions noted Neuro oriented x3 Sensorium / Orientation: awake Psych affect normal ABG / Lab / Microbiology Data Result Diagrams: 12/10/20 04:55 12/10/20 04:55 Laboratory: Laboratory Results - last 24 hr 12/10/20 12/10/20 04:55 04:55 WBC 11.9 H RBC 4.64 Hgb 13.4 Hct 39.5 L MCV 85.1 MCH 28.9 MCHC 33.9 RDW Std Deviation 42.1 RDW Coeff of Stephanie 13.4 Plt Count 346 MPV 10.0 Immature Gran % (Auto) 1.800 H Neut % (Auto) 88.7 H Lymph % (Auto) 5.1 L [place] % (Auto) 4.1 Eos % (Auto) 0.0 Baso % (Auto) 0.3 Absolute Neuts (auto) 10.5 H Absolute Lymphs (auto) 0.61 L Nucleated RBC % 0 Sodium 137 Potassium 3.7 Chloride 106 Carbon Dioxide 23.0 Anion Gap 8 BUN 61 H Creatinine 1.52 H Estim Creat Clear Calc 38.95 Est GFR (MDRD) Af Amer 59 L Est GFR (MDRD) Non-Af 49 L BUN/Creatinine Ratio 40.1 H Glucose 208 H Calcium 8.0 L Total Bilirubin 0.40 AST 36 ALT 56 Alkaline Phosphatase 83 Total Protein 6.1 L Albumin 2.5 L Globulin 3.6 Albumin/Globulin Ratio 0.7 L Microbiology: Microbiology 12/07/20 00:49 Blood Culture - Preliminary Blood Culture (Wb) - Anticubital Left No growth in 48 hours. 12/07/20 00:40 Blood Culture - Preliminary Blood Culture (Wb) - Anticubital Right No growth in 48 hours. Microbiology 12/07/20 00:49 Blood Culture (Wb) - Anticubital Left Blood Culture - Preliminary No growth in 48 hours. 12/07/20 00:40 Blood Culture (Wb) - Anticubital Right Blood Culture - Preliminary No growth in 48 hours. 12/07/20 00:50 Nasal Secretion SARS-CoV-2 Antigen (Rapid) - Final SARS-CoV-2 (COVID 19) D/C Instructions Discharge Diet: Low fat / Low cholesterol Discharge Activity: Return to Normal Activity Weight Bearing Status: Weight bearing as tolerated Call your doctor if you observe: Fever of 101 or Higher, Shortness of breath, Swelling in the ankles, Chest pain and Increased palpitations (irregular heartbeat) Additional Instructions: Remain in self isolation till 12/23/2020. Meaningful Use Info Meaningful Use Diagnoses (Choose all that apply): None applicable Discharge Plan Admission Admit Date/Time: 12/07/20 01:55 Attending Provider: Jacquelin Camarena Primary Care Provider: Thierry Fermin Providers: Adan Oliveira ; Sandeep Green ; Fozia Rosales PRESENTATION TEAM MEMBER ; Kasi Hunt Instructions Patient Instructions: Coronavirus Disease 2019 (COVID-19): Overview, Convalescent Plasma Donation for COVID-19, COVID-19 and the Flu: What's the Difference? Discharge Orders/Prescriptions Prescriptions: New dexamethasone 2 mg Tablet 6 mg PO DAILY Qty: 6 RF: 0 Mucus Relief ER 1,200 mg Tablet Extended Release 12hr 1,200 mg PO BID Qty: 60 RF: 0 Eliquis 2.5 mg tablet 2.5 mg PO BID Qty: 28 RF: 0 Continued amlodipine 10 MG tablet 10 mg PO DAILY Qty: 30 RF: 0 hydrochlorothiazide 25 MG tablet 25 mg PO DAILY Qty: 30 RF: 0 Referrals / Follow Up: Thierry Fermin DO [Primary Care Provider] - In 1 Week Disposition Disposition (needs filled in before D/C Order can be placed): Home Health Service Visit Charges Inpatient E&M: 06589 Disch Hosp
--- NOTE | 2020-12-10 11:30 | PCM.DC ---
Discharge Instructions Diet Discharge Diet: Low fat / Low cholesterol Activity Discharge Activity: Return to Normal Activity Weight Bearing Status: Weight bearing as tolerated Dressing / Incision Call your doctor if you observe: Fever of 101 or Higher, Shortness of breath, Swelling in the ankles, Chest pain and Increased palpitations (irregular heartbeat) Follow Up Care Test Results: Test results from this visit will be discussed in further detail at your follow-up appointment, if applicable. Discharge Plan Admission Admit Date/Time: 12/07/20 01:55 Attending Provider: Jacquelin Camarena Primary Care Provider: Thierry Fermin Consulting Providers: Adan Oliveira ; Sandeep Green ; Fozia Rosales NP ; Kasi Hunt Instructions Patient Instructions: Coronavirus Disease 2019 (COVID-19): Overview, Convalescent Plasma Donation for COVID-19, COVID-19 and the Flu: What's the Difference? Discharge Orders/Prescriptions Prescriptions: New dexamethasone 2 mg Tablet 6 mg PO DAILY Qty: 6 RF: 0 Mucus Relief ER 1,200 mg Tablet Extended Release 12hr 1,200 mg PO BID Qty: 60 RF: 0 Eliquis 2.5 mg tablet 2.5 mg PO BID Qty: 28 RF: 0 Continued amlodipine 10 MG tablet 10 mg PO DAILY Qty: 30 RF: 0 hydrochlorothiazide 25 MG tablet 25 mg PO DAILY Qty: 30 RF: 0 Referrals / Follow Up: Thierry Fermin DO [Primary Care Provider] - In 1 Week Disposition Disposition (needs filled in before D/C Order can be placed): Home Health Service
--- NOTE | 2020-12-12 13:54 | CASEMGMT ---
REDD GALARZA COVID F/U Phone Call LACE: 9 Strata: 2 Discharge date: 12/10/20 Call date: 12/12/20 Call time: [phone] Admission dx: Acute hypoxemic resp failure, COVID 19 Pt states has been doing 'good' since discharge. Pt states no questions regarding discharge instructions/medications and states d/c paperwork was clear/easy to read. Pt states he is waiting on a return call from PCP for appt. Pt states his oxygen and sats 'are doing great.' Pt states no suggestions for [facility] and states 'You guys were amazing and everyone helped us so much.' Pt states wifes sx's have 'pretty much gone away' and pt states no further questions/concerns/needs. [place] REDD GALARZA
== END 2020-12-10 16:00 | disposition home or self-care (01) | DRG 177 ==
LOC: ED 01:17 → ICU 02:15
PROVIDERS: Internal Medicine Critical Care Medicine; Internal Medicine Infectious Disease; Admitting Provider Hospitalist; Emergency Provider Emergency Medicine; PCP Family Medicine; Visit Provider Student in an Organized Health Care Education/Training Program
DX: U07.1 COVID-19 (principal); J12.82 Pneumonia due to coronavirus disease 2019; J96.01 Acute respiratory failure with hypoxia; N17.9 Acute kidney failure, unspecified; I24.8 Other forms of acute ischemic heart disease; I12.9 Hypertensive chronic kidney disease with stage 1 through stage 4 chronic kidney disease, or unspecified chronic kidney disease; N18.31 Chronic kidney disease, stage 3a; E87.6 Hypokalemia; Z79.01 Long term (current) use of anticoagulants; Z79.899 Other long term (current) drug therapy
CPT/HCPCS: 36415; 36600; 71045; 71275; 80053; 82803; 83605; 83880; 84145; 84484; 85025; 85027; 85379; 87040; 87426; 93005; 94003; 94640; 94660; 97110; 97116; 97162; 97166; 97530; 97535; 99285; J7030; J7050; Q9967; A4216

== ENCOUNTER → 2022-05-11 | Outpatient (CLI) | payer MEDICARE, SELFPAY ==
[2022-05-11 09:28] LABS: Absolute Neutrophil Count 6.7 X10^3/uL (2.0-7.7); Basophil# 0.03 X10^3/uL; Basophil% 0.3 % (0-1); Eosinophil# 0.56 X10^3/uL; Eosinophils% 5.8 % (0-5); Hematocrit 43.6 % (40-54); Hemoglobin 14.7 g/dL (13.0-16.5); Lymphocyte % 18.7 % (19-41); Mean Corp Hgb Conc 33.7 g/dL (32-36); Mean Corpuscular Hgb 29.8 pg (27.0-32.0); Mean Corpuscular Volume 88.3 fL (80-94); Mean Platelet Vol. 9.2 fl (6.2-12.0); Monocyte# 0.55 X10^3/uL; Monocyte% 5.7 % (0-10); NRBC Flagged by Analyzer 0 % (0-5); Neutrophil # 6.67 X10^3/uL (2.7-7.7); Neutrophil % 69.1 % (47-70); Platelet Count 216 K/mm3 (150-450); RBC Distribution Width CV 13.5 % (11.6-14.6); RBC Distribution Width SD 43.6 fl (35.1-43.9); Red Blood Count 4.94 M/mm3 (4.6-6.2); White Blood Count 9.7 K/mm3 (4.4-11.0)
[2022-05-11 09:54] LABS: Microalbumin,Random Urine 28.2 mg/L (NO RANGE EST.); Microalbumin:Creatinine Ratio 56.4 mg/g CRE (<30 mg/g CRE)
[2022-05-11 10:09] LABS: PTHIN 47.9 pg/mL (18.4-80.1)
[2022-05-11 10:14] LABS: Vitamin D,25 Hydroxy 41.6 ng/mL
[2022-05-11 10:20] LABS: ALB/GLOB Ratio 1.1 RATIO (0.9-2.4); AST(SGOT) 18 U/L (15-37); Alanine Aminotransfer ALT/SGPT 27 U/L (16-61); Albumin, Serum 3.5 g/dL (3.2-5.0); Alkaline Phosphatase 56 U/L (45-117); Anion Gap 7 (5-15); BUN 24 mg/dL (7-18); BUN/Creat Ratio 16.7 RATIO (10-20); Calcium,Total 8.8 mg/dL (8.5-10.1); Chloride 108 mmol/L (98-107); Cholesterol 192 mg/dL (200); Creatinine, Serum 1.44 mg/dL (0.70-1.30); EST Glomerular Filtration Rate 52 mL/min (>60); Est Glom Filt Rate - Afr Amer 62 mL/min (>60); Globulin 3.1 g/dL (2.2-4.2); Glucose 118 mg/dL (74-106); High Density Lipoprotein 55 mg/dL; PSA,Total- Diagnostic 6.17 ng/mL (0.0-4.0); Phosphorus 2.6 mg/dL (2.5-4.9); Potassium 3.8 mmol/L (3.5-5.1); Protein, Total 6.6 g/dL (6.4-8.2); Sodium Level 142 mmol/L (136-145); Triglycerides 172 mg/dL; Very Low Density Lipoprotein 34 mg/dL (5-40)
== END | disposition home or self-care (01) ==
LOC: LAB 08:38
PROVIDERS: PCP Family Medicine; Visit Provider Family Medicine
DX: I12.9 Hypertensive chronic kidney disease with stage 1 through stage 4 chronic kidney disease, or unspecified chronic kidney disease (principal); N18.2 Chronic kidney disease, stage 2 (mild); R97.20 Elevated prostate specific antigen [PSA]; R80.9 Proteinuria, unspecified
CPT/HCPCS: 36415; 80053; 80061; 82043; 82306; 82570; 83970; 84100; 84153; 85025

== ENCOUNTER → 2022-11-20 | Outpatient (CLI) | payer MEDICARE, SELFPAY ==
--- NOTE | 2022-11-20 07:52 | US_ITS ---
STUDY: ABDOMINAL ULTRASOUND - RIGHT UPPER QUADRANT REASON FOR VISIT: Male, 72 years old RUQ PAIN TECHNIQUE: Ultrasound evaluation of the right upper quadrant was performed with real-time and static ruiz-scale imaging. TECHNICAL QUALITY: Adequate. COMPARISON: None. FINDINGS: Liver: The liver measures 15.7 cm. There is increased echogenicity consistent with fatty infiltration. The bile ducts are within normal limits. There is hepatic color flow. The direction of portal flow is hepatopetal. There is no demonstrated mass lesion. Gallbladder: Normal distended gallbladder. The gallbladder wall measures 2.2 mm. There is a negative sonographic He''s sign. There is no pericholecystic fluid. There are no gallstones. Common Bile Duct (C.B.D.): The common bile duct measures 3.4 mm. Pancreas: Normal size of the head, body and tail of the pancreas. There is increased echogenicity of the pancreas. There is no demonstrated pancreatic mass or cyst. Right Kidney: Normal size of the right kidney. The right kidney measures 10.3 cm x 5.2 cm x 5.6 cm. Normal renal cortex. The right cortex measures 1.4 cm. There is a 1.1 cm x 1.1 cm x 1.1 cm renal cyst. There is no right hydronephrosis. US/Abdomen Limited IMPRESSION: Diffuse fatty infiltration of the liver. Electronically Signed: Shree Carrillo MD at 15:33 EDT ,
[2022-11-20 09:29] LABS: AST(SGOT) 17 U/L (15-37); Alanine Aminotransfer ALT/SGPT 26 U/L (16-61); Albumin, Serum 3.3 g/dL (3.2-5.0); Alkaline Phosphatase 67 U/L (45-117); Anion Gap 3 (5-15); BUN 22 mg/dL (7-18); BUN/Creat Ratio 15.4 RATIO (10-20); Calcium,Total 9.4 mg/dL (8.5-10.1); Chloride 107 mmol/L (98-107); Creatinine, Serum 1.43 mg/dL (0.70-1.30); EST Glomerular Filtration Rate 52 mL/min (>60); Est Glom Filt Rate - Afr Amer 63 mL/min (>60); Globulin 3.2 g/dL (2.2-4.2); Glucose 149 mg/dL (74-106); PSA,Total- Diagnostic 5.15 ng/mL (0.0-4.0); Potassium 4.1 mmol/L (3.5-5.1); Protein, Total 6.5 g/dL (6.4-8.2); Sodium Level 138 mmol/L (136-145)
== END | disposition home or self-care (01) ==
PROVIDERS: PCP Family Medicine; Referring Provider Family Medicine; Visit Provider Family Medicine
DX: N18.32 Chronic kidney disease, stage 3b (principal); R97.20 Elevated prostate specific antigen [PSA]; R10.11 Right upper quadrant pain
CPT/HCPCS: 36415; 76705; 80053; 84153

== ENCOUNTER → 2023-10-08 | Outpatient (CLI) | payer MEDICARE, SELFPAY | END | disposition home or self-care (01) | LOC: BFHLAB 14:42 | PROVIDERS: PCP Nurse Practitioner Family; Visit Provider Nurse Practitioner Family | DX: N40.0 Benign prostatic hyperplasia without lower urinary tract symptoms (principal); N40.2 Nodular prostate without lower urinary tract symptoms; N39.0 Urinary tract infection, site not specified | CPT/HCPCS: 36415; 84153; 87086; G0103 ==

== ENCOUNTER 2023-12-30 16:37 | Emergency (ER) | payer MEDICARE, SELFPAY ==
[2023-12-30 16:40] VITALS: BP 160/88; PULSE 53; RESP 18; TEMP 35.9; O2SAT 98; BMI 36.7
--- NOTE | 2023-12-30 17:26 | CT_ITS ---
EXAM: CT ABDOMEN AND PELVIS WITHOUT INTRAVENOUS CONTRAST CLINICAL INDICATION: Kidney Stone TECHNIQUE: Helically acquired images were obtained of the abdomen and pelvis without intravenous contrast. This CT exam was performed using one or more of the following dose reduction techniques: automated exposure control, adjustment of the mA and/or kV according to patient size, and/or use of iterative reconstruction technique. RADIATION DOSE: CTDIvol = 19.75 mGy, DLP = 947.30 mGy-cm COMPARISON: No relevant prior studies available. FINDINGS: LOWER THORAX: Unremarkable. Lung bases are clear. No cardiomegaly. No significant pericardial effusion. ABDOMEN: LIVER: Unremarkable. Homogeneous. GALLBLADDER AND BILE DUCTS: Unremarkable. No calcified gallstones. No gallbladder distention or wall edema. No intra- or extrahepatic biliary ductal dilation. PANCREAS: Unremarkable. No focal cystic mass. SPLEEN: Unremarkable. Normal size without focal cystic or solid mass. ADRENALS: Unremarkable. No nodules. KIDNEYS AND URETERS: No acute abnormality. Normal renal size and position. No definite renal or ureteral stones are seen. There is no hydronephrosis on either side. STOMACH AND BOWEL: Evaluation of the GI tract is limited by absence of oral contrast. Cannot exclude stomach wall thickening. No dilated loops of bowel or evidence for obstruction. Cannot exclude segmental thickening of the corley of the small or large bowel. Cannot exclude enteritis or colitis. Severe diverticulosis with no evidence of diverticulitis. PELVIS: APPENDIX: No evidence of acute appendicitis. BLADDER: Irregular bladder contour consistent with trabeculations from chronic bladder outlet obstruction. Bladder is distended. REPRODUCTIVE: Moderate prostate enlargement. ABDOMEN and PELVIS: INTRAPERITONEAL SPACE: Unremarkable. No ascites or other fluid collection. No free air. BONES/JOINTS: Diffuse degenerative changes of the spine. SOFT TISSUES: Unremarkable. No discrete abdominal or pelvic wall hernia. VASCULATURE: Ectasia of the aorta and iliac arteries with prominent calcified plaque. No aneurysm. LYMPH NODES: Unremarkable. No enlarged lymph nodes. CT/Abdomen/Pelvis without Cont IMPRESSION: 1. No definite acute abnormality. 2. Prostate enlargement and evidence of chronic bladder outflow obstruction. Electronically Signed: Mike Lei MD at 19:23 EDT ,
--- NOTE | 2023-12-30 17:27 | EX.ED.GUMALE ---
HPI History of Present Illness Chief Complaint: Flank Pain Narrative Narrative: 73 year old male presenting with left flank pain since . Patient states if comes and goes. He describes it as sharp and radiates towards his left groin. He denies dysuria or hematuria. He denies fever or chills. He denies nausea, vomiting, or diarrhea. He does admit to a history of kidney stones distantly. He states he also has had a rash for 2 months. He states it was treated by Dr. Fermin with steroids with some relief but without resolution. He has not been back to Dr. Fermin for a reevaluation. He has not been referred to dermatology. He denies any new soaps, dyes, detergents, linens etc. [facility] Medical History Hypertension Home Medications ?Medication ?Instructions ?Recorded ?Last Taken ?Type amlodipine 10 mg tablet 10 mg PO DAILY ##30 04/23/16 Unknown Rx hydrochlorothiazide 25 mg tablet 25 mg PO DAILY ##30 04/23/16 Unknown Rx apixaban 2.5 mg tablet (Eliquis) 2.5 mg PO BID #28 tabs 12/10/20 Unknown Rx dexamethasone 6 mg tablet 6 mg PO DAILY #6 tabs 12/10/20 Unknown Rx guaifenesin 1,200 mg tablet, 1,200 mg PO BID #60 tabs 12/10/20 Unknown Rx extended release 12 hr (Mucus Relief ER) hydrocodone-acetaminophen 5-325mg 1 tab PO Q6H PRN PRN Pain 3 days 12/30/23 Unknown Rx 5mg-325mg #10 TABLETS Allergy/AdvReac Type Severity Reaction Status Date / Time No Known Allergies Allergy Verified 12/30/23 16:39 Family History Other Heart disease Social History Smoking Status: Never smoker ROS ROS ED Constitutional Constitutional ED: Denies chills, fever(s) or sweats Eyes Eyes: Denies blurry vision or change in vision ENT ENT ED: Denies ear pain or sore throat Cardiovascular Cardiovascular: Denies chest pain, palpitations or racing heartbeat Respiratory/Chest Respiratory/Chest: Denies cough, dyspnea or sputum Gastrointestinal Gastrointestinal: Reports other Details: Left flank pain ; Denies abdominal pain, constipation, diarrhea, nausea or vomiting Genitourinary Genitourinary ED: Denies dysuria, hematuria or urinary frequency Musculoskeletal Musculoskeletal: Denies arthralgias, myalgias or neck pain Integumentary Reports rash; Denies abscess or Abrasions Neurologic Neurologic: Denies headache(s), paresthesias or weakness Psychiatric Psychiatric: Denies anxiety, depression, suicidal ideation or suicidal thoughts Endocrine Endocrinology: Denies polydipsia or polyuria EXAM Physical Exam Const Vital Signs: 12/30/23 16:40 12/30/23 18:52 12/30/23 20:00 Temperature 96.7 F L Temperature Source Temporal Pulse Rate 53 L 50 L 49 L Respiratory Rate 18 16 16 Blood Pressure 160/88 H 143/79 H 135/67 H Blood Pressure Mean 112 100 89 Pulse Ox 98 96 97 Oxygen Delivery Method Room Air Room Air Room Air Positive well nourished HEENT Reports moist mucous membranes normocephalic and atraumatic Eyes PERRL and EOMs intact bilaterally Resp normal respiratory effort Cardio regular rhythm Rate: bradycardia GI non-tender, non-distended and no masses Bladder / Kidney Exam: CVA tenderness left Neuro oriented x3 and CN's II-XII intact bilaterally Sensorium / Orientation: alert Motor Exam: strength 5/5 throughout Psych mental status grossly normal MDM MDM MDM Narrative Medical decision making narrative: patient presenting with left flank pain. differential includes uti, pyelonephritis, colitis, diverticulitism, kidney stone, constipation, muscle strain. CBC will be obtained to assess white blood cell count, hemoglobin, and platelets, CMP to assess liver function, renal function, electrolytes. urinalysis to assess for occult blood or uti. patient medicated with morphine, zofran. ct of the abdomen/pelvis w/o contrast will be obtained. CBC shows normal white blood cell count 8.2, hemoglobin 14.1, platelets 182, creatinine near baseline. Electrolytes are normal. Urinalysis negative for occult blood. Nitrite negative. 500 leukocyte esterase slightly contaminated. Patient without urinary symptoms. CT of the abdomen pelvis without contrast was obtained and was negative. Patient counseled on findings. He still having pain so we will start him on [place] for home. I will send his urine for culture. Discharge disposition plan Impression: 1. Flank pain Lab Data Labs: Laboratory Results - last 24 hr 12/30/23 12/30/23 17:30 18:49 WBC 8.2 RBC 4.93 Hgb 14.1 Hct 43.3 MCV 87.8 MCH 28.6 MCHC 32.6 RDW Std Deviation 46.6 H RDW Coeff of Stephanie 14.5 Plt Count 192 MPV 8.5 Immature Gran % (Auto) 0.600 Neut % (Auto) 64.5 Lymph % (Auto) 18.9 L Rains % (Auto) 7.4 Eos % (Auto) 8.2 H Baso % (Auto) 0.4 Absolute Neuts (auto) 5.3 Absolute Lymphs (auto) 1.55 Nucleated RBC % 0 Sodium 138 Potassium 3.9 Chloride 107 Carbon Dioxide 23.0 Anion Gap 8 BUN 18 Creatinine 1.49 H Estim Creat Clear Calc 47.81 Est GFR (MDRD) Af Amer 60 Est GFR (MDRD) Non-Af 49 L BUN/Creatinine Ratio 12.1 Glucose 82 Calcium 8.8 Urine Color Yellow Urine Clarity Clear Urine pH 6.5 Ur Specific [place] 1.010 Urine Protein Negative Urine Glucose (UA) Normal Urine Ketones Negative Urine Occult Blood Negative Urine Nitrite Negative Urine Bilirubin Negative Urine Urobilinogen Normal Ur Leukocyte Esterase 500 H Urine RBC 0 SEEN Urine WBC 10-25 SEEN Ur Squamous Epith Cells 0-5 SEEN Urine Bacteria RARE Urine Mucus 0 SEEN Radiography Diagnostic Testing: Clinical Impression(s) from Imaging Studies Abdomen/Pelvis CT 12/30/23 17:26 IMPRESSION: 1. No definite acute abnormality. 2. Prostate enlargement and evidence of chronic bladder outflow obstruction. Electronically Signed: Mike Lei MD at 19:23 EDT , Discharge Plan Triage Chief Complaint: Flank Pain ED Provider: Sammy Carrion Dx/Rx/DC Orders Instructions: ED Flank Pain, Uncertain Cause Prescriptions: New hydrocodone-acetaminophen 5-325 mg tablet 1 tab PO Q6H PRN PRN (Reason: Pain) 3 Days Qty: 10 0RF No Action amlodipine 10 MG tablet 10 mg PO DAILY Qty: 30 0RF hydrochlorothiazide 25 MG tablet 25 mg PO DAILY Qty: 30 0RF Mucus Relief ER 1,200 mg Tablet Extended Release 12hr 1,200 mg PO BID Qty: 60 0RF Eliquis 2.5 mg tablet 2.5 mg PO BID Qty: 28 0RF dexamethasone 6 mg tablet 6 mg PO DAILY Qty: 6 0RF Primary Care Provider: Jenni Corado Referrals: Vipin Sampson MD [Med Staff - Active Staff] - 3-5 Days Jenni Corado, [facility] [Primary Care Provider] - Print Language: [place] Disposition Disposition: Home, Self Care
[2023-12-30] MEDS: Morphine 4 MG/ML Syringe IV (17:36)
[2023-12-30] MEDS: Ondansetron 4 MG/2 ML Vial IV (17:36)
[2023-12-30 17:41] LABS: Absolute Lymphocyte Count 1.55 X10^3/uL (0.83-4.51); Absolute Neutrophil Count 5.3 X10^3/uL (2.0-7.7); Basophil# 0.03 X10^3/uL; Basophil% 0.4 % (0-1); Eosinophil# 0.67 X10^3/uL; Eosinophils% 8.2 % (0-5); Hematocrit 43.3 % (40-54); Hemoglobin 14.1 g/dL (13.0-16.5); Lymphocyte # 1.55 X10^3/ul (0.83-4.51); Lymphocyte % 18.9 % (19-41); Mean Corp Hgb Conc 32.6 g/dL (32-36); Mean Corpuscular Hgb 28.6 pg (27.0-32.0); Mean Corpuscular Volume 87.8 fL (80-94); Mean Platelet Vol. 8.5 fl (6.2-12.0); Monocyte# 0.61 X10^3/uL; Monocyte% 7.4 % (0-10); NRBC Flagged by Analyzer 0 % (0-5); Neutrophil # 5.29 X10^3/uL (2.7-7.7); Neutrophil % 64.5 % (47-70); Platelet Count 192 K/mm3 (150-450); RBC Distribution Width CV 14.5 % (11.6-14.6); RBC Distribution Width SD 46.6 fl (35.1-43.9); Red Blood Count 4.93 M/mm3 (4.6-6.2); White Blood Count 8.2 K/mm3 (4.4-11.0)
[2023-12-30 17:56] LABS: Anion Gap 8 (5-15); BUN 18 mg/dL (7-18); BUN/Creat Ratio 12.1 RATIO (10-20); Calcium,Total 8.8 mg/dL (8.5-10.1); Chloride 107 mmol/L (98-107); Creatinine, Serum 1.49 mg/dL (0.70-1.30); EST Glomerular Filtration Rate 49 mL/min (>60); Est Glom Filt Rate - Afr Amer 60 mL/min (>60); Estimated Creatinine Clearance 47.81 ml/min; Glucose 82 mg/dL (74-106); Potassium 3.9 mmol/L (3.5-5.1); Sodium Level 138 mmol/L (136-145)
[2023-12-30 18:52] VITALS: BP 143/79; PULSE 50; RESP 16; O2SAT 96
[2023-12-30 18:53] LABS: Mucous, Urine 0 SEEN /hpf (<or=2+); Red Blood Cells-Urine 0 SEEN /hpf (0-5)
[2023-12-30 19:04] LABS: Color, Urine Yellow (Yellow); Glucose, Dipstick Normal (Normal); Ketone-Dipstick Negative (Negative); Leukocyte Esterase-Dipstick 500 /ul (Negative); Nitrite-Dipstick Negative (Negative); Occult Blood-Urine Negative /ul (Negative); Protein-Dipstick Negative (Negative); Urine Bilirubin Dipstick Negative (Negative); Urine Clarity Clear (Clear); Urine Urobilinogen Normal (Normal); Urine pH 6.5 (5.0 - 8.0)
[2023-12-30 19:10] LABS: Bacteria RARE /hpf (None Seen); Squamous Epithelial Cells - UA 0-5 SEEN /hpf (0-5); White Blood Cells 10-25 SEEN /hpf (0-5)
[2023-12-30 20:00] VITALS: BP 135/67; PULSE 49; RESP 16; O2SAT 97
[2023-12-30] MEDS: HYDROcodone Bitartrate/Apap 5/325 Tablet PO (20:38)
[2023-12-30 20:46] VITALS: BP 155/92; PULSE 55; RESP 16; TEMP 37.1; O2SAT 96
== END 2023-12-30 20:47 | disposition home or self-care (01) ==
PROVIDERS: Emergency Provider Student in an Organized Health Care Education/Training Program; PCP Nurse Practitioner Family; Visit Provider Student in an Organized Health Care Education/Training Program
DX: R10.9 Unspecified abdominal pain (principal); I10 Essential (primary) hypertension; Z79.01 Long term (current) use of anticoagulants; Z79.899 Other long term (current) drug therapy; Z87.442 Personal history of urinary calculi
CPT/HCPCS: 74176; 80048; 81001; 85025; 96374; 96375; 99283; J7030; A4216; J2405

== ENCOUNTER → 2024-06-30 | Outpatient (CLI) | payer MEDICARE, SELFPAY ==
[2024-06-30 12:27] LABS: Absolute Lymphocyte Count 1.94 X10^3/uL (0.83-4.51); Absolute Neutrophil Count 8.5 X10^3/uL (2.0-7.7); Basophil# 0.06 X10^3/uL; Basophil% 0.5 % (0-1); Eosinophil# 0.51 X10^3/uL; Eosinophils% 4.4 % (0-5); Hemoglobin 14.7 g/dL (13.0-16.5); Lymphocyte # 1.94 X10^3/ul (0.83-4.51); Lymphocyte % 16.6 % (19-41); Mean Corp Hgb Conc 33.4 g/dL (32-36); Mean Corpuscular Hgb 29.7 pg (27.0-32.0); Mean Corpuscular Volume 88.9 fL (80-94); Mean Platelet Vol. 9.6 fl (6.2-12.0); Monocyte# 0.67 X10^3/uL; Monocyte% 5.7 % (0-10); NRBC Flagged by Analyzer 0 % (0-5); Neutrophil # 8.46 X10^3/uL (2.7-7.7); Neutrophil % 72.2 % (47-70); Platelet Count 225 K/mm3 (150-450); RBC Distribution Width CV 14.3 % (11.6-14.6); RBC Distribution Width SD 45.6 fl (35.1-43.9); Red Blood Count 4.95 M/mm3 (4.6-6.2); White Blood Count 11.7 K/mm3 (4.4-11.0)
[2024-06-30 13:02] LABS: ALB/GLOB Ratio 1.1 RATIO (0.9-2.4); AST(SGOT) 17 U/L (15-37); Alanine Aminotransfer ALT/SGPT 19 U/L (16-61); Albumin, Serum 3.6 g/dL (3.2-5.0); Alkaline Phosphatase 70 U/L (45-117); Anion Gap 7 (5-15); BUN 24 mg/dL (7-18); BUN/Creat Ratio 14.5 RATIO (10-20); Chloride 110 mmol/L (98-107); Cholesterol 193 mg/dL (200); Creatinine, Serum 1.66 mg/dL (0.70-1.30); EST Glomerular Filtration Rate 43 mL/min (>60); Est Glom Filt Rate - Afr Amer 53 mL/min (>60); Globulin 3.2 g/dL (2.2-4.2); Glucose 123 mg/dL (74-106); High Density Lipoprotein 46 mg/dL; PSA,Total- Diagnostic 7.78 ng/mL (0.0-4.0); Potassium 3.7 mmol/L (3.5-5.1); Protein, Total 6.8 g/dL (6.4-8.2); Sodium Level 141 mmol/L (136-145); Triglycerides 267 mg/dL; Very Low Density Lipoprotein 53 mg/dL (5-40)
[2024-06-30 13:03] LABS: Microalbumin,Random Urine 82.9 mg/L (NO RANGE EST.)
[2024-06-30 16:47] LABS: Hemoglobin A1c 5.8 % (3.8-5.6)
== END | disposition home or self-care (01) ==
LOC: BFHLAB 09:37
PROVIDERS: PCP Family Medicine; Referring Provider Family Medicine; Visit Provider Family Medicine
DX: E11.29 Type 2 diabetes mellitus with other diabetic kidney complication (principal); I25.10 Atherosclerotic heart disease of native coronary artery without angina pectoris; R97.20 Elevated prostate specific antigen [PSA]
CPT/HCPCS: 36415; 80053; 80061; 82043; 82570; 83036; 84153; 85025

== ENCOUNTER 2024-08-20 15:07 | Inpatient (IN) | payer MEDICARE, SELFPAY ==
[2024-08-20] VITALS (13 sets, daily range): BP systolic 144–186; BP diastolic 81–97; PULSE 68–81; RESP 16–34; TEMP 36.2–37.2; O2SAT 88–100; BMI 38.0; BMI 36.8
--- NOTE | 2024-08-20 15:24 | EDS_ITS ---
HPI History of Present Illness Chief Complaint: Cough [facility] Medical History (Updated 08/20/24 @ 18:[address] Melissa Olivares DO) Nonalcoholic hepatosteatosis HTN (hypertension) Obesity Diabetes mellitus, type 2 Hyperlipidemia CKD (chronic kidney disease) stage 3, GFR 30-59 ml/min Home Medications ?Medication ?Instructions ?Recorded ?Last Taken ?Type amlodipine 10 mg tablet 10 mg PO DAILY ##30 04/23/16 08/20/24 Rx aspirin 81 mg tablet,delayed 81 mg PO DAILY 08/20/24 08/20/24 History release (Adult Aspirin Regimen) atorvastatin 40 mg tablet 40 mg PO QHS 08/20/24 08/19/24 History carvedilol 12.5 mg tablet 12.5 mg PO Q12H 08/20/24 08/20/24 History glimepiride 1 mg tablet 1 mg PO DAILY 08/20/24 08/20/24 History Allergy/AdvReac Type Severity Reaction Status Date / Time No Known Allergies Allergy Verified 08/20/24 15:08 Family History Other Heart disease Social History (Updated 08/20/24 @ 18:[address] Melissa Olivares DO) household members: spouse housing: house current occupational status: retired Smoking Status: Never smoker alcohol intake: never substance use type: does not use EXAM Physical Exam Const Vital Signs: 08/20/24 15:07 08/20/24 15:07 08/20/24 15:10 Temperature 98.6 F 98.6 F Temperature Source Oral Oral Pulse Rate 70 70 70 Respiratory Rate 18 16 16 Respiratory Effort Respiratory Depth Respiratory Pattern Blood Pressure 144/81 H 144/81 H Blood Pressure Mean 102 102 Pulse Ox 94 88 92 Oxygen Delivery Method Nasal Cannula Nasal Cannula Nasal Cannula Oxygen Flow Rate (L/min) 2 3 08/20/24 15:42 08/20/24 15:50 08/20/24 16:10 Temperature 98.4 F Temperature Source Oral Pulse Rate 68 Respiratory Rate 34 H Respiratory Effort Short of Breath Accessory Muscle Use Respiratory Depth Shallow Respiratory Pattern Tachypnea Blood Pressure 154/82 H Blood Pressure Mean 106 Pulse Ox 95 Oxygen Delivery Method Nasal Cannula Nasal Cannula Nasal Cannula Oxygen Flow Rate (L/min) 3 6 6 08/20/24 17:00 08/20/24 18:00 Temperature 98.6 F 98.6 F Temperature Source Oral Oral Pulse Rate 72 74 Respiratory Rate 24 H 25 H Respiratory Effort Respiratory Depth Respiratory Pattern Blood Pressure 164/86 H 164/97 H Blood Pressure Mean 112 119 Pulse Ox 92 94 Oxygen Delivery Method Nasal Cannula Nasal Cannula Oxygen Flow Rate (L/min) 6 6 [facility] [place] Medical decision making narrative: HISTORY OF PRESENT ILLNESS: 74-year-old male presents with cold symptoms and cough. Notes he is currently being treated for pneumonia and ear infection. Notes increasing shortness of breath to the point where his pulse ox was in the 80s. Notes last Tylenol was at 2 PM. Notes he is been sick for the last couple of weeks. States he was worse today. Denies leg swelling. Denies chest pain but notes dyspnea on exertion. Denies any bleeding diathesis. The patient denies recent surgery in the last 4 weeks or immobilization in the last 3 days, denies previous diagnosis of DVT or PE, hemoptysis, unilateral leg swelling or malignancy with treatment the last 6 months or palliative. No estrogen use noted. Notes he is currently on Augmentin and azithromycin for pneumonia. States he is only had this for 1 day. States symptoms have not gotten any better. REVIEW OF SYSTEMS: Pertinent positives: Cough, shortness of breath Pertinent negatives: Vomiting, fever, chest pain PHYSICAL EXAM: Nursing triage notes reviewed, Vital signs reviewed Constitutional: please see [facility] HENT: MMM Eyes: Pupils equal round and reactive to light, Extraocular muscles intact Neck: No stridor, no JVD, full neck ROM Lungs: Clear to auscultation, No wheezing or rales. No increased work of breathing, no conversational dyspnea, no accessory muscle use, no nasal flaring. No respiratory distress noted Heart: Regular rate and rhythm, No murmurs, No rubs and No gallops, 2+ distal pulses (radial, femoral, posterior tibial) in all extremities Abdomen: Soft, there is no tenderness, rigidity, rebound or guarding, no obvious peritoneal signs, no palpable pulsatile abdominal masses, no auscultated abdomin al bruit : No CVAT Extremities: No edema Neuro: No new focal neurological deficits, cranial nerves II through XII intact, 5/5 strength in all present extremities. Intact sensation to light touch in all present extremities, 2+ reflexes bilateral patella tendons. Skin: No rash or lesions noted MEDICAL DECISION MAKING: Chief Complaint: Cough, shortness of breath External records reviewed: Reviewed prior imaging studies: Reviewed CT scan from 2020 which showed no evidence of PE, bilateral pneumonia or ARDS Factors affecting care: Social determinants of health: Elderly History obtained from others: , daughter Consults: n internal medicine MDM Narrative: Patient was initially hemodynamically stable, afebrile and saturating at 88% on room air was placed on 4 L nasal cannula with improvement in O2 sat. I considered the following differential diagnosis: Pneumonia, CHF, anemia, electro disturbance, arrhythmia, COVID, flu, RSV I obtained a broad lab and imaging workup to further elucidate the etiology of the patient's complaint ALL IMAGES (IF OBTAINED) HAVE BEEN PERSONALLY REVIEWED AND INTERPRETED BY MYSELF. EKG with normal sinus rhythm rate of 69, left ax deviation, normal intervals, QTc 402, no STEMI CBC with leukocytosis suggestive of systemic inflammation, no anemia thrombocytopenia BMP with hyponatremia, no other significant electrolyte maladies, no signs of m etabolic acidosis or endorgan hypoperfusion, noted CKD, High-sensitivity troponin is negative, no evidence of myocardial ischemia BMP within normal limits Urinalysis shows no evidence of urinary inflammation suggestive of UTI Blood culture, urine culture sent Chest x-ray was read and reviewed personally by myself showed evidence of RLL pneumonia. Give the patient broad-spectrum antibiotics in the form of ceftriaxone azithromycin. Patient remained stable on 6 L nasal cannula. Patient admitted to the PCU. Spoke to Dr. Olivares. The patient and/or family, caregivers express understanding. The patient and/or family, caregivers agrees with the plan. Shared decision making: I will have a discussion with the patient and or visitors regarding risk/benefits of further testing or admission. They will be made aware of of the risk/benefits inherent in this decision they will be given the opportunity to voice understanding. Total critical care time today provided was at least 0 minutes. This excludes separately billable procedures. Critical care time (if documented) is secondary to the patient having high probability of clinically significant/life threatening deterioration in the patient's condition which required my urgent intervention. Impression: 1. Hypoxia 2. CAP 3. Leukocytosis Dispo: admit to inpatient, PCU This note was generated with [employer] dictation software. It may contain incorrect words, spelling, and punctuation that were not noted in review of the chart prior to signing. Lab Data Labs: Laboratory Results - last 24 hr 08/20/24 08/20/24 08/20/24 15:30 16:28 17:11 WBC 19.1 H RBC 4.70 Hgb 13.4 Hct 40.0 MCV 85.1 MCH 28.5 MCHC 33.5 RDW Std Deviation 43.1 RDW Coeff of Stephanie 13.7 Plt Count 281 MPV 8.7 Immature Gran % (Auto) 0.700 Neut % (Auto) 79.9 H Lymph % (Auto) 10.1 L [place] % (Auto) 8.2 Eos % (Auto) 0.8 Baso % (Auto) 0.3 Absolute Neuts (auto) 15.2 H Absolute Lymphs (auto) 1.92 Nucleated RBC % 0 Differential Comment SCANNED Diff Path Review May foll Sodium 133 L Potassium 3.5 Chloride 103 Carbon Dioxide 23.0 Anion Gap 8 BUN 19 H Creatinine 1.50 H Est GFR (MDRD) Af Amer 59 L Est GFR (MDRD) Non-Af 49 L BUN/Creatinine Ratio 12.7 Glucose 124 H Calcium 8.6 Troponin I High Sens 30 B-Natriuretic Peptide 69.3 Urine Color Yellow Urine Clarity Clear Urine pH 6.0 Ur Specific [place] 1.010 Urine Protein 100 H Urine Glucose (UA) Normal Urine Ketones Negative Urine Occult Blood 25 H Urine Nitrite Negative Urine Bilirubin Negative Urine Urobilinogen Normal Ur Leukocyte Esterase 25 H Urine RBC 0-5 SEEN Urine WBC 10-25 SEEN Ur Squamous Epith Cells 0-5 SEEN Urine Bacteria 1+ Urine Mucus 0 SEEN 08/20/24 17:50 WBC RBC Hgb Hct MCV MCH MCHC RDW Std Deviation RDW Coeff of Stephanie Plt Count MPV Immature Gran % (Auto) Neut % (Auto) Lymph % (Auto) [place] % (Auto) Eos % (Auto) Baso % (Auto) Absolute Neuts (auto) Absolute Lymphs (auto) Nucleated RBC % Differential Comment Diff Path Review Sodium Potassium Chloride Carbon Dioxide Anion Gap BUN Creatinine Est GFR (MDRD) Af Amer Est GFR (MDRD) Non-Af BUN/Creatinine Ratio Glucose Calcium Troponin I High Sens 26 B-Natriuretic Peptide Urine Color Urine Clarity Urine pH Ur Specific [place] Urine Protein Urine Glucose (UA) Urine Ketones Urine Occult Blood Urine Nitrite Urine Bilirubin Urine Urobilinogen Ur Leukocyte Esterase Urine RBC Urine WBC Ur Squamous Epith Cells Urine Bacteria Urine Mucus Radiography Diagnostic Testing: Clinical Impression(s) from Imaging Studies Chest X-Ray 08/20/24 15:40 IMPRESSION: Patchy bibasilar infiltrates superimposed on mild degree of vascular congestion. Electronically Signed: Shree Carrillo MD at 15:56 EST , Discharge Plan Disposition Disposition: Acute Care Hospital [facility] Discharge Date/Time: 08/20/24 19:56
--- NOTE | 2024-08-20 15:40 | RAD_ITS ---
STUDY: X-RAY CHEST REASON FOR EXAM: Male, 74 years old. Chest pain TECHNIQUE: Single AP portable view of the chest. COMPARISON: Comparison is made with prior study dated December 07, 2020. FINDINGS: EKG electrodes are seen. Patchy bibasilar infiltrates more prominent at the right lung base and superimposed mild degree of vascular congestion. There is no demonstrated pleural abnormality. Sternal cerclage wires and vascular clips are present from a prior sternotomy and coronary artery bypass graft procedure (CABG). Borderline cardiomegaly. Normal mediastinum and makenzie. Normal visualized pulmonary arteries. Normal visualized aortic arch and descending thoracic aorta. Normal visualized thoracic spine. Normal visualized ribs, clavicles, and shoulders. There is no demonstrated abnormality of the visualized soft tissue structures of the upper abdomen. RAD/Chest 1 View (Portable) IMPRESSION: Patchy bibasilar infiltrates superimposed on mild degree of vascular congestion. Electronically Signed: Shree Carrillo MD at 15:56 EST ,
[2024-08-20 15:44] LABS: Absolute Lymphocyte Count 1.92 X10^3/uL (0.83-4.51); Absolute Neutrophil Count 15.2 X10^3/uL (2.0-7.7); Basophil# 0.05 X10^3/uL; Basophil% 0.3 % (0-1); Eosinophil# 0.15 X10^3/uL; Eosinophils% 0.8 % (0-5); Hemoglobin 13.4 g/dL (13.0-16.5); Lymphocyte # 1.92 X10^3/ul (0.83-4.51); Lymphocyte % 10.1 % (19-41); Mean Corp Hgb Conc 33.5 g/dL (32-36); Mean Corpuscular Hgb 28.5 pg (27.0-32.0); Mean Corpuscular Volume 85.1 fL (80-94); Mean Platelet Vol. 8.7 fl (6.2-12.0); Monocyte# 1.57 X10^3/uL; Monocyte% 8.2 % (0-10); NRBC Flagged by Analyzer 0 % (0-5); Neutrophil # 15.24 X10^3/uL (2.7-7.7); Neutrophil % 79.9 % (47-70); POSITIVE DIFFERENTIAL YES; Platelet Count 281 K/mm3 (150-450); RBC Distribution Width CV 13.7 % (11.6-14.6); RBC Distribution Width SD 43.1 fl (35.1-43.9); White Blood Count 19.1 K/mm3 (4.4-11.0)
[2024-08-20 15:46] LABS: Differential Indicated SCAN CRITERIA MET
[2024-08-20 16:07] LABS: Anion Gap 8 (5-15); BUN 19 mg/dL (7-18); BUN/Creat Ratio 12.7 RATIO (10-20); Calcium,Total 8.6 mg/dL (8.5-10.1); Chloride 103 mmol/L (98-107); EST Glomerular Filtration Rate 49 mL/min (>60); Est Glom Filt Rate - Afr Amer 59 mL/min (>60); Glucose 124 mg/dL (74-106); Potassium 3.5 mmol/L (3.5-5.1); Sodium Level 133 mmol/L (136-145); Troponin-I HS (w/2H Reflex) 30 pg/mL (3.0-78.0)
[2024-08-20 16:16] LABS: Differential Comment SCANNED
[2024-08-20] MEDS: Ceftriaxone 2 GM in 0.9% Normal Saline (50mL MB+) 50 ML IV (16:53)
[2024-08-20 16:56] LABS: BNP,B-Type NATRIURETIC PEPTIDE 69.3 pg/mL (0-100)
[2024-08-20 17:19] LABS: Mucous, Urine 0 SEEN /hpf (<or=2+)
[2024-08-20 17:26] LABS: Color, Urine Yellow (Yellow); Glucose, Dipstick Normal (Normal); Ketone-Dipstick Negative (Negative); Leukocyte Esterase-Dipstick 25 /ul (Negative); Nitrite-Dipstick Negative (Negative); Occult Blood-Urine 25 /ul (Negative); Protein-Dipstick 100 mg/dl (Negative); Urine Bilirubin Dipstick Negative (Negative); Urine Clarity Clear (Clear); Urine Urobilinogen Normal (Normal)
[2024-08-20 17:40] LABS: Reflex Troponin-HS? (from REC) Y
[2024-08-20 17:41] LABS: Bacteria 1+ /hpf (None Seen); Squamous Epithelial Cells - UA 0-5 SEEN /hpf (0-5)
[2024-08-20 17:42] LABS: Red Blood Cells-Urine 0-5 SEEN /hpf (0-5); White Blood Cells 10-25 SEEN /hpf (0-5)
[2024-08-20] MEDS: Azithromycin 500 MG in 0.9% Normal Saline (250mL Bag) 250 ML 255 MG IV (17:43)
--- NOTE | 2024-08-20 18:07 | HP.PCM.HOS_ITS ---
HPI - General General Date of Admission: 08/20/24 Date of Service: 08/20/24 Chief Complaint: Shortness of breath HPI Narrative DINO BLANDON, is a 74 M who presented to the emergency department at [facility] on 08/20/2024 with a chief complaint of shortness of breath. Patient states he has been having increasing shortness of breath over the last 48 hours but he has been sick for about 2 weeks. Stated it started out with some nasal congestion runny nose and a headache and has had intermittent myalgias, generalized weakness, decreased p.o. intake mild nausea with no vomiting or diarrhea and now has a productive cough. He was seen at an urgent care yesterday and started on antibiotics with Augmentin and azithromycin yesterday he has been compliant with medications however he was worsened to the point today where his pulse ox at home was in the 80s so his family brought him to the emergency department to be further evaluated. He is a never smoker and does not wear oxygen at baseline. Vital signs on presentation emergency department showed a temperature of 98.6, heart rate 70, 144/81, pulse ox was 88% on nasal cannula 2 L and his oxygen has been requiring up titration to the point where he is now currently on 6 L nasal cannula with sats in the mid 90s. CBC showed a white count of 19.1 with a left shift showing a 79.9% neutrophilia. Chemistry panel showed mild hyponatremia with a sodium of 133, stable BUN and creatinine elevation at 19 and 1.50 which is consistent with baseline. Glucose of 124. Troponin with 30 and 26 respectively and BNP was normal at 69.3. UA is not consistent with infection. EKG was without acute findings and chest x-ray showed patchy bibasilar infiltrates. On auscultation he had pretty significant rhonchi and intermittent wheeze in the right lung field more impressive at the base and the apex. Left side was relatively clear. In the emergency department he was given azithromycin and ceftriaxone given his significant oxygen requirement request for admission was made. [facility] Medical History (Updated 08/20/24 @ 18:[address] Melissa Olivares DO) Nonalcoholic hepatosteatosis HTN (hypertension) Obesity Diabetes mellitus, type 2 Hyperlipidemia CKD (chronic kidney disease) stage 3, GFR 30-59 ml/min Home Medications ?Medication ?Instructions ?Recorded ?Last Taken ?Type amlodipine 10 mg tablet 10 mg PO DAILY ##30 04/23/16 08/20/24 Rx aspirin 81 mg tablet,delayed 81 mg PO DAILY 08/20/24 08/20/24 History release (Adult Aspirin Regimen) atorvastatin 40 mg tablet 40 mg PO QHS 08/20/24 08/19/24 History carvedilol 12.5 mg tablet 12.5 mg PO Q12H 08/20/24 08/20/24 History glimepiride 1 mg tablet 1 mg PO DAILY 08/20/24 08/20/24 History Allergy/AdvReac Type Severity Reaction Status Date / Time No Known Allergies Allergy Verified 08/20/24 15:08 Family History Other Heart disease Surgical History no surgical history no surgical history Social History (Updated 08/20/24 @ 18:[address] Melissa Olivares DO) household members: spouse housing: house current occupational status: retired Smoking Status: Never smoker alcohol intake: never substance use type: does not use ROS Constitutional Constitutional: Reports chills, fatigue, fever(s), malaise and weakness; Denies anorexia, change in weight, night sweats or other Eyes Eyes: Reports discharge from eye(s); Denies blurry vision, change in eye color, change in vision, double vision, erythema, eye pain, loss of vision or other ENT HEENT: Reports headache(s), nasal congestion, post nasal drip and sinus pressure; Denies abnormal hearing, dysphagia, ear pain, epistaxis, hearing loss, nasal discharge, sore throat or other Cardiovascular Cardiovascular: Reports dyspnea on exertion; Denies chest pain, claudication, edema, lightheadedness, orthopnea, palpitations, paroxysmal nocturnal dyspnea, rapid heart rate, syncope or other Respiratory/Chest Respiratory/Chest: Reports cough, dyspnea, excessive phlegm production, productive cough, shortness of breath at rest, shortness of breath with exertion and wheezing; Denies hemoptysis or other Gastrointestinal Gastrointestinal: Reports nausea; Denies abdominal pain, coffee ground emesis, constipation, diarrhea, dyspepsia, hematemesis, hematochezia, loose stools, melena, vomiting or other Genitourinary Genitourinary: Denies burning urination, difficulty urinating, dysuria, hematuria, nocturia, urinary frequency, urinary hesitancy, urinary incontinence, urinary urgency or other Musculoskeletal Musculoskeletal: Reports myalgias; Denies arthralgias, back pain, joint pain, joint stiffness, joint swelling, neck pain or other Neurologic Neurologic: Denies abnormal gait, abnormal speech, confusion, disequilibrium, dizziness, focal weakness, headache(s), numbness, paresthesias, seizure-like activity, seizures, syncope, tingling, tremor(s) or other Psychiatric Psychiatric: Denies anxiety, depression, homicidal ideation, suicidal ideation or other Endocrine Endocrinology: Denies change in body appearance, cold intolerance, excessive sweating, heat intolerance, polydipsia, polyuria or other Hematologic/Lymphatic Hematologic/Lymphatic: Denies anemia, easy bleeding, easy bruising, lymphadenopathy or other Allergic/Immunologic Allergic/Immunologic: Denies rhinitis, hives, eczemia, asthma or other Vital Signs Vital Signs Vital Signs: 08/20/24 15:07 08/20/24 15:07 08/20/24 15:10 Temperature 98.6 F 98.6 F Temperature Source Oral Oral Pulse Rate 70 70 70 Respiratory Rate 18 16 16 Respiratory Effort Respiratory Depth Respiratory Pattern Blood Pressure 144/81 H 144/81 H Blood Pressure Mean 102 102 Pulse Ox 94 88 92 Oxygen Delivery Method Nasal Cannula Nasal Cannula Nasal Cannula Oxygen Flow Rate (L/min) 2 3 08/20/24 15:42 08/20/24 15:50 08/20/24 16:10 Temperature 98.4 F Temperature Source Oral Pulse Rate 68 Respiratory Rate 34 H Respiratory Effort Short of Breath Accessory Muscle Use Respiratory Depth Shallow Respiratory Pattern Tachypnea Blood Pressure 154/82 H Blood Pressure Mean 106 Pulse Ox 95 Oxygen Delivery Method Nasal Cannula Nasal Cannula Nasal Cannula Oxygen Flow Rate (L/min) 3 6 6 08/20/24 17:00 Temperature 98.6 F Temperature Source Oral Pulse Rate 72 Respiratory Rate 24 H Respiratory Effort Respiratory Depth Respiratory Pattern Blood Pressure 164/86 H Blood Pressure Mean 112 Pulse Ox 92 Oxygen Delivery Method Nasal Cannula Oxygen Flow Rate (L/min) 6 Weight Weight: 100.6 kg Body Mass Index (BMI) 38.0 Physical Exam Const alert, oriented x3, no apparent distress and well nourished; Negative for average body habitus Constitutional Narrative: Older, white male, sitting up in bed and appears as if he does not feel well however does not look toxic, currently appears comfortable, family at bedside, is on 6 L nasal cannula but no respiratory distress at this time General Appearance: cooperative HEENT normocephalic, head/scalp atraumatic and moist oral mucous membranes; Negative for hearing grossly normal bilaterally HEENT Narrative: Mallampati 3, no thrush, mild hearing loss Eyes EOMs intact bilaterally and conjunctivae normal Eyes Narrative: Patient with clear ocular discharge bilaterally, no scleral icterus Neck no lymphadenopathy and supple Neck Narrative: Neck is short and thick, trachea midline, no thyroid enlargement Resp No normal respiratory effort, no retractions, no use of accessory muscles and No clear to auscultation bilaterally Resp Narrative: Patient with mild tachypnea, rhonchi and wheeze on the right lung field distal greater than apical, left lung field is relatively clear, no bronchospasm noted with deep breathing, intermittent cough Auscultation: rhonchi and wheezes; Negative for crackles Cardio regular rate, regular rhythm, S1 normal heart sound, S2 normal heart sound, no murmurs, no rub, no gallops and no clicks GI normal to inspection, nondistended, normoactive bowel sounds, soft to palpation and non-tender Extremity no clubbing, cyanosis or edema Extremity Narrative: Pedal pulses are 2+, radial pulses are 2+ Neuro oriented x3, moves all extremities and no focal motor deficits Speech: speech normal Psych affect normal Psych Narrative: Eye contact is good and patient interacts appropriately Results Lab / Micro Data 08/20/24 15:30 08/20/24 15:30 Labs: Laboratory Results - last 24 hr 08/20/24 15:30: WBC 19.1 H, RBC 4.70, Hgb 13.4, Hct 40.0, MCV 85.1, MCH 28.5, MCHC 33.5, RDW Std Deviation 43.1, RDW Coeff of Stephanie 13.7, Plt Count 281, MPV 8.7, Immature Gran % (Auto) 0.700, Neut % (Auto) 79.9 H, Lymph % (Auto) 10.1 L, [place] % (Auto) 8.2, Eos % (Auto) 0.8, Baso % (Auto) 0.3, Absolute Neuts (auto) 15.2 H, Absolute Lymphs (auto) 1.92, Nucleated RBC % 0, Differential Comment SCANNED, Diff Path Review December, Sodium 133 L, Potassium 3.5, Chloride 103, Carbon Dioxide 23.0, Anion Gap 8, BUN 19 H, Creatinine 1.50 H, Est GFR (MDRD) Af Amer 59 L, Est GFR (MDRD) Non-Af 49 L, BUN/Creatinine Ratio 12.7, Glucose 124 H, Calcium 8.6, Troponin I High Sens 30 08/20/24 16:28: B-Natriuretic Peptide 69.3 08/20/24 17:11: Urine Color Yellow, Urine Clarity Clear, Urine pH 6.0, Ur Specific [place] 1.010, Urine Protein 100 H, Urine Glucose (UA) Normal, Urine Ketones Negative, Urine Occult Blood 25 H, Urine Nitrite Negative, Urine Bilirubin Negative, Urine Urobilinogen Normal, Ur Leukocyte Esterase 25 H, Urine RBC 0-5 SEEN, Urine WBC 10-25 SEEN, Ur Squamous Epith Cells 0-5 SEEN, Urine Bacteria 1+, Urine Mucus 0 SEEN Micro: Microbiology 08/20/24 15:45 Mucosa - Nose SARS-CoV-2, Influenza & RSV (PCR) - Final Imaging Radiology Impression Chest X-Ray 08/20/24 15:40 IMPRESSION: Patchy bibasilar infiltrates superimposed on mild degree of vascular congestion. Electronically Signed: Shree Carrillo MD at 15:56 EST , Assessment & Plan Assessment/Plan (1) Acute hypoxemic respiratory failure: (2) Pneumonia: (3) Leukocytosis: (4) Hyponatremia: PLAN: Plan Acute hypoxic respiratory failure secondary to pneumonia -Highly suspect this started with a respiratory viral illness and has progressed to pneumonia -Chest x-ray is consistent with pneumonia -Had been on outpatient Augmentin and azithromycin for about 24 hours but worsening symptoms -Will utilize Zosyn and azithromycin for now -Check urinary antigens for strep pneumo and Legionella -COVID/flu/RSV was negative and will check respiratory viral panel -Check blood, sputum culture -Aggressive pulmonary toilet with as needed and scheduled DuoNebs -Mucinex 1200 p.o. twice daily -We will hold on steroids as patient states he does not tolerate them well -Incentive spirometry and Acapella as ordered -Patient currently requiring 6 L nasal cannula -Will monitor closely for further need and wean as able -Will need ambulatory pulse ox prior to discharge Leukocytosis -Secondary to the above -White count is 19,000 -Monitor closely -Antibiotics as noted above -Cultures pending for blood, urine, and sputum Mild hyponatremia -Sodium levels 133 -Highly suspect this is related to acute infection in the lung -Will be given 1 L of IV fluids -Recheck in a.m. CKD stage IIIa -Renal function is at baseline with a creatinine of 1.50 -Monitor clinically -Avoid nephrotoxins as able DM-2 -Patient had hemoglobin A1c on 06/30/2024 which time was 5.8. - Hold home glimepiride -SSI -Blood sugars may be elevated compared to normal due to acute infection -Cardiac/carb controlled diet CAD/essential hypertension/hyperlipidemia -Patient with previous CABG -Continue home amlodipine -Continue home baby aspirin -Continue atorvastatin-continue home carvedilol History of pneumothorax on the left -Occurred post cardiothoracic surgery -No acute issues -Chest x-ray has inflated lung on admitting film Hepatosteatosis -Likely related to metabolic syndrome and OLIVIER -Continue medical therapy Obesity -BMI 38.1 -Recommend weight loss -Complicates treatment, prognosis, outcomes DVT prophylaxis -Lovenox 40 daily CODE STATUS -Full code as verified at the time of admission Charges/Coding Visit Charges Inpatient E&M: 16232 Init Hosp L2
[2024-08-20 18:25] LABS: Troponin-I HS 26 pg/mL (3.0-78.0)
[2024-08-20] MEDS: hydrALAZINE 20 MG/ML Vial 10 MG IV (18:42)
--- NOTE | 2024-08-20 19:25 | CASEMGMT ---
Care Management Face to Face with patient for initial transition planning/care coordination assessment in the ED.? This process description writer introduced self and role at [facility]. Patient lying in bed, alert and oriented. Patient willing to participate in assessment and is able to answer questions.? and daughter at bedside and permission given for them to participate in assessment.? Care providers, pharmacy, and demographics verified. Admitting Diagnosis: Acute Hypoxemic respiratory failure Other diagnosis history: ?Hypertension PCP: Jeny Specialists: Branden [facility] Preferred Pharmacy: [facility] [place] Insurance: [employer] Prescription Benefit:?None, patient states they pay out of pocket Living Will/HPOA: ?Has a HPOA, to bring in copy. They have a LW but it is not notarized, offered to have it done at hospital, patient declined. LNOK: Living Arrangements: ?Live in a two-story home, 4 steps to enter, 12 steps upstairs.? Patient does not need to access upstairs bedroom on main floor. Able to complete all ADLS Transportation: patient drives DME: wheelchair, walker, grab bar by toilet, raised toilet seat, pulse ox , blood pressure cuff HHC: none SNF/Rehab: none Community Resources: none Behavioral Health History: none Patient goals: Patient wishes to discharge home.? Disposition Plan: admission to acute; RN CM/SW to follow for discharge planning needs that may arise. Deisi Cotter, PLUCK SEPARATOR, TITLE INSURANCE EXAMINER
[2024-08-20] MEDS: 0.9% Normal Saline (1000mL) 1,000 ML 75 ML IV (23:12)
[2024-08-20] MEDS: Piperacil/Tazobactam 3.375 GM in 0.9% Normal Saline (50mL MB+) 50 ML IV (23:19)
[2024-08-20] MEDS: Acetaminophen 500 MG Tablet 1000 MG PO (23:21)
[2024-08-20] MEDS: Carvedilol 12.5 MG Tablet PO (23:21)
[2024-08-20] MEDS: Atorvastatin Calcium 40 MG Tablet PO (23:22)
[2024-08-20] MEDS: guaiFENesin 1,200 MG Tablet 1200 MG PO (23:22)
[2024-08-20] MEDS: Ipratropium/Albuterol Sulfate 3 ML AMPUL.NEB INHALATION (23:38)
[2024-08-21] VITALS (15 sets, daily range): BP systolic 129–172; BP diastolic 61–87; PULSE 62–83; RESP 18–25; TEMP 36.2–36.8; O2SAT 91–100; BMI 36.8
[2024-08-21] MEDS: Ipratropium/Albuterol Sulfate 3 ML AMPUL.NEB INHALATION ×6 (03:50→23:45)
[2024-08-21 05:29] LABS: Bedside Glucose 145 mg/dL (74-106)
[2024-08-21] MEDS: Piperacil/Tazobactam 3.375 GM in 0.9% Normal Saline (50mL MB+) 50 ML IV ×3 (05:59→21:56)
[2024-08-21] MEDS: ALPRAZolam 0.25 MG Tablet PO (05:59)
[2024-08-21] MEDS: Acetaminophen 500 MG Tablet 1000 MG PO ×3 (06:05→21:55)
[2024-08-21 07:01] LABS: Bedside Glucose 118 mg/dL (74-106)
[2024-08-21 07:04] LABS: Absolute Neutrophil Count 13.3 X10^3/uL (2.0-7.7); Basophil# 0.08 X10^3/uL; Basophil% 0.5 % (0-1); Eosinophil# 0.28 X10^3/uL; Eosinophils% 1.7 % (0-5); Hematocrit 45.9 % (40-54); Hemoglobin 15.4 g/dL (13.0-16.5); Lymphocyte % 10.8 % (19-41); Mean Corp Hgb Conc 33.6 g/dL (32-36); Mean Corpuscular Hgb 29.3 pg (27.0-32.0); Mean Corpuscular Volume 87.4 fL (80-94); Mean Platelet Vol. 9.3 fl (6.2-12.0); Monocyte# 1.02 X10^3/uL; Monocyte% 6.1 % (0-10); NRBC Flagged by Analyzer 0 % (0-5); Neutrophil # 13.32 X10^3/uL (2.7-7.7); Neutrophil % 79.9 % (47-70); Platelet Count 268 K/mm3 (150-450); RBC Distribution Width CV 13.8 % (11.6-14.6); RBC Distribution Width SD 44.5 fl (35.1-43.9); Red Blood Count 5.25 M/mm3 (4.6-6.2); White Blood Count 16.7 K/mm3 (4.4-11.0)
--- NOTE | 2024-08-21 07:34 | PCM.PN.HOSP ---
Reason for Visit Reason for Visit: Diagnoses Elevated white blood cell count, unspecified (08/20/24) Hypo-osmolality and hyponatremia (08/20/24) Pneumonia, unspecified organism (08/20/24) Acute respiratory failure with hypoxia (08/20/24) Objective Data Objective Data Vital Signs: Vital Signs Temp Pulse Resp BP Pulse Ox O2 Del Method O2 Flow Rate 98.3 F 83 20 H 155/76 H 93 High Flow 7 08/21/24 06:20 08/21/24 06:20 08/21/24 06:20 08/21/24 06:20 08/21/24 06:20 08/21/24 06:20 08/21/24 06:20 Oxygen Flow Rate (L/min) 7 Oxygen Delivery Method High Flow Weight: 214 lb 11.684 oz Body Mass Index (BMI) 36.8 Intake & Output: Intake and Output for Last 24 Hours 08/19/24 08/20/24 08/21/24 23:59 23:59 23:59 Intake Total 305 / 305 50 / 50 Balance 305 / 305 50 / 50 Lab / Micro Data 08/21/24 06:30 08/21/24 06:30 Labs: Laboratory Results - last 24 hr 08/20/24 15:30: WBC 19.1 H, RBC 4.70, Hgb 13.4, Hct 40.0, MCV 85.1, MCH 28.5, MCHC 33.5, RDW Std Deviation 43.1, RDW Coeff of Stephanie 13.7, Plt Count 281, MPV 8.7, Immature Gran % (Auto) 0.700, Neut % (Auto) 79.9 H, Lymph % (Auto) 10.1 L, [place] % (Auto) 8.2, Eos % (Auto) 0.8, Baso % (Auto) 0.3, Absolute Neuts (auto) 15.2 H, Absolute Lymphs (auto) 1.92, Nucleated RBC % 0, Differential Comment SCANNED, Diff Path Review December, Sodium 133 L, Potassium 3.5, Chloride 103, Carbon Dioxide 23.0, Anion Gap 8, BUN 19 H, Creatinine 1.50 H, Est GFR (MDRD) Af Amer 59 L, Est GFR (MDRD) Non-Af 49 L, BUN/Creatinine Ratio 12.7, Glucose 124 H, Calcium 8.6, Troponin I High Sens 30 08/20/24 16:28: B-Natriuretic Peptide 69.3 08/20/24 17:11: Urine Color Yellow, Urine Clarity Clear, Urine pH 6.0, Ur Specific [place] 1.010, Urine Protein 100 H, Urine Glucose (UA) Normal, Urine Ketones Negative, Urine Occult Blood 25 H, Urine Nitrite Negative, Urine Bilirubin Negative, Urine Urobilinogen Normal, Ur Leukocyte Esterase 25 H, Urine RBC 0-5 SEEN, Urine WBC 10-25 SEEN, Ur Squamous Epith Cells 0-5 SEEN, Urine Bacteria 1+, Urine Mucus 0 SEEN 08/20/24 17:50: Troponin I High Sens 26 08/20/24 23:26: POC Glucose 145 H 08/21/24 06:08: POC Glucose 118 H 08/21/24 06:30: WBC 16.7 H, RBC 5.25, Hgb 15.4, Hct 45.9, MCV 87.4, MCH 29.3, MCHC 33.6, RDW Std Deviation 44.5 H, RDW Coeff of Stephanie 13.8, Plt Count 268, MPV 9.3, Immature Gran % (Auto) 1.000 H, Neut % (Auto) 79.9 H, Lymph % (Auto) 10.8 L, [place] % (Auto) 6.1, Eos % (Auto) 1.7, Baso % (Auto) 0.5, Absolute Neuts (auto) 13.3 H, Absolute Lymphs (auto) 1.80, Nucleated RBC % 0 Micro: Microbiology 08/20/24 04:00 Urine, Clean Catch Legionella Antigen - Final 08/20/24 04:00 Urine, Clean Catch Streptococcus pneumoniae Antigen (M - Final 08/20/24 22:20 Mucosa - Nasopharyngeal Respiratory Panel (PCR) - Final Human [place] 08/20/24 15:45 Mucosa - Nose SARS-CoV-2, Influenza & RSV (PCR) - Final Radiography Diagnostic Testing: Radiology Impression Chest X-Ray 08/20/24 15:40 IMPRESSION: Patchy bibasilar infiltrates superimposed on mild degree of vascular congestion. Electronically Signed: Shree Carrillo MD at 15:56 EST , Physical Exam Narrative Seen and examined Patient admitted with shortness of breath cough. Denies chest pain pressure or congestion or tightness. Also has chronic ear infection and follows ENT Dr. General: Alert, Oriented x3, Cooperative HEENT: Bilateral profound hearing impairment right more than left. Atraumatic, PERRLA, EOMI, Normocephalic Oral: No Gingival or Mucosal Lesions/ Ulcerations Neck: Supple, No JVD, Negative Carotid Bruits Chest wall/Lungs: Air entry diminished in bilateral lung bases. Bilateral coarse wheezing and crepitations Cardiovascular: Regular rate, Regular Rhythm, Normal S1, Normal S2, No M/G/R Abdomen: Bowel Sounds Present, Soft, Non Tender, Non-Distended : No dysuria. No renal angle tenderness. No suprapubic tenderness. Extremities: mild pedal edema, Capillary Refill Less than 3 Seconds Skin: No rashes, No breakdown Musculoskeletal: No Tenderness to Palpation of Joints or Extremities Neurological: Cranial nerves II-XII grossly intact, DTR 2+/4. No acute focal neurological deficit. Psych/Mental Status: Normal Affect, Appropriate. Assessment & Plan Assessment/Plan (1) Acute hypoxemic respiratory failure: (2) Pneumonia: (3) Leukocytosis: (4) Hyponatremia: PLAN: Plan 80-year-old gentleman was admitted with increasing shortness of breath, cough, hypoxia SpO2 80s on room air and fever. Diagnosed with ear infection pneumonia in urgent care a day before admission. Acute hypoxic respiratory failure secondary to pneumonia failure of outpatient therapy: Patient is being admitted in PCU. Chest x-ray images reviewed and shows bibasilar infiltrate predominant RLL. Respiratory panel positive of human metapneumovirus. Triple PCR for SARS-CoV-2, flu and RSV are negative. Urinary antigens are negative. Leukocytosis improving. Patient was on Augmentin and azithromycin for about 24 hours. Currently on Zosyn and azithromycin. On Mucinex DM. And symptomatic respiratory and PEP. On 6 to 7 L of oxygen. BNP and troponin normal. Mild hyponatremia: Admitting sodium 133 improved to 136 near normal. Hyponatremia resolved. CKD stage IIIa -Renal function is at baseline with a creatinine of 1.50 -Monitor clinically -Avoid nephrotoxins as able DM-2 -Patient had hemoglobin A1c on 06/30/2024 which time was 5.8. - Hold home glimepiride -Accu-Chek before meals and at bedtime with Humalog sliding scale coverage and hypoglycemia protocol. Diabetic diet CAD/essential hypertension/hyperlipidemia -Patient with previous CABG -Continue home amlodipine -Continue home baby aspirin -Continue atorvastatin-continue home carvedilol History of pneumothorax on the left -Occurred post cardiothoracic surgery -No acute issues -Chest x-ray has inflated lung on admitting film MASH/MASLD AST 65. ALT normal. Baseline 12. Normal. Morbid obesity -BMI 38.1 KG per square with other comorbidities as mentioned -Recommend weight loss -Complicates treatment, prognosis, outcomes DVT prophylaxis -Lovenox 40 daily CODE STATUS -Full code as verified at the time of admission patient's Clinical diagnosis, labs, imaging and plan of care discussed with the patient's son via the bedside Charges/Coding Visit Charges Inpatient E&M: 33606 Subs Hosp L2
[2024-08-21 07:45] LABS: ALB/GLOB Ratio 0.6 RATIO (0.9-2.4); AST(SGOT) 65 U/L (15-37); Alanine Aminotransfer ALT/SGPT 55 U/L (16-61); Albumin, Serum 2.6 g/dL (3.2-5.0); Alkaline Phosphatase 104 U/L (45-117); Anion Gap 7 (5-15); BUN 17 mg/dL (7-18); BUN/Creat Ratio 13.5 RATIO (10-20); Calcium,Total 8.9 mg/dL (8.5-10.1); Chloride 108 mmol/L (98-107); Creatinine, Serum 1.26 mg/dL (0.70-1.30); EST Glomerular Filtration Rate 60 mL/min (>60); Est Glom Filt Rate - Afr Amer 72 mL/min (>60); Estimated Creatinine Clearance 55.83 ml/min; Globulin 4.5 g/dL (2.2-4.2); Glucose 113 mg/dL (74-106); Magnesium 2.5 mg/dL (1.6-2.6); Phosphorus 2.4 mg/dL (2.5-4.9); Potassium 4.1 mmol/L (3.5-5.1); Protein, Total 7.1 g/dL (6.4-8.2); Sodium Level 136 mmol/L (136-145)
[2024-08-21] MEDS: Azithromycin 500 MG in 0.9% Normal Saline (250mL Bag) 250 ML 255 MG IV (10:38)
[2024-08-21] MEDS: Benzonatate 100 MG Capsule 200 MG PO ×3 (10:42→21:56)
[2024-08-21] MEDS: Enoxaparin 40 MG/0.4 ML Syringe SC (10:42)
[2024-08-21] MEDS: Aspirin E.C. 81 MG Tablet PO (10:42)
[2024-08-21] MEDS: amLODIPine 10 MG Tablet PO (10:42)
[2024-08-21] MEDS: guaiFENesin/D-Methorphan TAB.SR.12H 2 TABLET PO ×2 (10:42→21:57)
[2024-08-21] MEDS: Carvedilol 12.5 MG Tablet PO ×2 (10:47→21:55)
[2024-08-21 14:15] LABS: Pathologist Review Reviewed
--- NOTE | 2024-08-21 17:05 | CASEMGMT ---
REDD GALARZA note: REDD GALARZA to room. Pt sitting up in chair. WICHITA. in room visiting. Discussed possibility of needing home O2 @ discharge. Discussed home O2 set-up process and made aware to call [employer] prior to leaving the hospital to make arrangements for home O2 delivery/set-up. Questions answered. They voice understanding. They prefer [employer] for DME co, should pt qualify. Pt does have a pulse ox @ home. They deny having other discharge needs at this time. Home O2 amb testing to be completed prior to discharge. Green sheet placed on pt's chart w/instructions for home O2, should pt qualify. Bella MEYERN REDD GALARZA
[2024-08-21 17:21] LABS: Bedside Glucose 126 mg/dL (74-106)
[2024-08-21 21:40] LABS: Bedside Glucose 141 mg/dL (74-106)
[2024-08-21] MEDS: Atorvastatin Calcium 40 MG Tablet PO (21:56)
[2024-08-22] VITALS (15 sets, daily range): BP systolic 125–186; BP diastolic 69–93; PULSE 61–78; RESP 16–22; TEMP 36.2–36.6; O2SAT 90–100; BMI 38.7
[2024-08-22] MEDS: hydrALAZINE 20 MG/ML Vial 10 MG IV (03:18)
[2024-08-22] MEDS: Ipratropium/Albuterol Sulfate 3 ML AMPUL.NEB INHALATION ×5 (03:30→20:13)
[2024-08-22] MEDS: Piperacil/Tazobactam 3.375 GM in 0.9% Normal Saline (50mL MB+) 50 ML IV ×3 (05:24→22:35)
[2024-08-22] MEDS: Acetaminophen 500 MG Tablet 1000 MG PO ×3 (05:24→22:36)
[2024-08-22] MEDS: Carvedilol 12.5 MG Tablet PO ×2 (05:24→22:36)
[2024-08-22] MEDS: Benzonatate 100 MG Capsule 200 MG PO ×3 (05:24→22:37)
[2024-08-22] MEDS: amLODIPine 10 MG Tablet PO (09:40)
[2024-08-22] MEDS: Aspirin E.C. 81 MG Tablet PO (09:40)
[2024-08-22] MEDS: guaiFENesin/D-Methorphan TAB.SR.12H 2 TABLET PO ×2 (09:40→22:36)
[2024-08-22] MEDS: Enoxaparin 40 MG/0.4 ML Syringe SC (09:45)
[2024-08-22] MEDS: Azithromycin 500 MG in 0.9% Normal Saline (250mL Bag) 250 ML 255 MG IV (09:46)
[2024-08-22 11:36] LABS: Bedside Glucose 136 mg/dL (74-106)
[2024-08-22 11:54] LABS: Bedside Glucose 192 mg/dL (74-106)
[2024-08-22] MEDS: Glimepiride 1 MG Tablet PO (12:36)
--- NOTE | 2024-08-22 16:07 | PN.HOSP_ITS ---
Reason for Visit Reason for Visit: Diagnoses Elevated white blood cell count, unspecified (08/20/24) Hypo-osmolality and hyponatremia (08/20/24) Pneumonia, unspecified organism (08/20/24) Acute respiratory failure with hypoxia (08/20/24) Objective Data Objective Data Vital Signs: Vital Signs Temp Pulse Resp BP Pulse Ox O2 Del Method O2 Flow Rate 97.1 F L 70 18 155/82 H 94 High Flow 2 08/22/24 09:34 08/22/24 15:39 08/22/24 15:39 08/22/24 09:34 08/22/24 13:50 08/22/24 13:50 08/22/24 13:50 Oxygen Flow Rate (L/min) 2 Oxygen Delivery Method High Flow Weight: 225 lb 4.999 oz Body Mass Index (BMI) 38.7 Intake & Output: Intake and Output for Last 24 Hours 08/20/24 08/21/24 08/22/24 23:59 23:59 23:59 Intake Total 305 / 305 2345.0 / 2345.0 715 / 715 Balance 305 / 305 2345.0 / 2345.0 715 / 715 Lab / Micro Data 08/21/24 06:30 08/21/24 06:30 Labs: Laboratory Results - last 24 hr 08/21/24 16:56: POC Glucose 126 H 08/21/24 21:21: POC Glucose 141 H 08/22/24 06:38: POC Glucose 136 H 08/22/24 11:33: POC Glucose 192 H Micro: Microbiology 08/20/24 17:11 Urine, Clean Catch Urine Culture - Preliminary Culture exhibits no growth. 08/20/24 04:00 Urine, Clean Catch Legionella Antigen - Final 08/20/24 04:00 Urine, Clean Catch Streptococcus pneumoniae Antigen (M - Final 08/20/24 22:20 Mucosa - Nasopharyngeal Respiratory Panel (PCR) - Final Human [place] 08/20/24 15:45 Mucosa - Nose SARS-CoV-2, Influenza & RSV (PCR) - Final Physical Exam Narrative Seen and examined Patient respiratory status improved with improvement in shortness of breath and cough. Patient stated he slept good last night. Still has ear fullness mainly in right with impaired hearing. It is unclear whether patient has appointment with ENT surgeon. He has not seen an ENT doctor yet. His son will let us know. Physical exam: General: Alert, Oriented x3, Cooperative HEENT: Bilateral profound hearing impairment right more than left. Atraumatic, PERRLA, EOMI, Normocephalic Oral: No Gingival or Mucosal Lesions/ Ulcerations Neck: Supple, No JVD, Negative Carotid Bruits Chest wall/Lungs: Air entry diminished in bilateral lung bases. Mild expiratory wheezing. No coarse crepitations. Cardiovascular: Regular rate, Regular Rhythm, Normal S1, Normal S2, No M/G/R Abdomen: Bowel Sounds Present, Soft, Non Tender, Non-Distended : No dysuria. No renal angle tenderness. No suprapubic tenderness. Extremities: mild pedal edema, Capillary Refill Less than 3 Seconds Skin: No rashes, No breakdown Musculoskeletal: No Tenderness to Palpation of Joints or Extremities Neurological: Cranial nerves II-XII grossly intact, DTR 2+/4. No acute focal neurological deficit. Psych/Mental Status: Normal Affect, Appropriate. Assessment & Plan Assessment/Plan (1) Acute hypoxemic respiratory failure: (2) Pneumonia: (3) Leukocytosis: (4) Hyponatremia: PLAN: Plan 80-year-old gentleman was admitted with increasing shortness of breath, cough, hypoxia SpO2 80s on room air and fever. Diagnosed with ear infection pneumonia in urgent care a day before admission. Acute hypoxic respiratory failure secondary to pneumonia failure of outpatient therapy: Patient is being admitted in PCU. Chest x-ray images reviewed and shows bibasilar infiltrate predominant RLL. Respiratory panel positive of human metapneumovirus. Triple PCR for SARS-CoV-2, flu and RSV are negative. Urinary antigens are negative. Leukocytosis improving. Patient was on Augmentin and azithromycin for about 24 hours. Currently on Zosyn and azithromycin. On Mucinex DM. And symptomatic respiratory and PEP. On 6 to 7 L of oxygen. BNP and troponin normal. 08/22: Improvement in shortness of breath cough. No fever. Patient on 2 L of oxygen, improvement in hypoxia. Leukocytosis also improved. Mild hyponatremia: Admitting sodium 133 improved to 136 near normal. Hyponatremia resolved. 08/22 sodium 136. CKD stage IIIa -Renal function is at baseline with a creatinine of 1.50 -Monitor clinically -Avoid nephrotoxins 04/22: BUNs/creatinine 17/1.26. Creatinine improved. DM-2 -Patient had hemoglobin A1c on 06/30/2024 which time was 5.8. - Hold home glimepiride -Accu-Chek before meals and at bedtime with Humalog sliding scale coverage and hypoglycemia protocol. Diabetic diet 08/22: Glucose is 113. CAD/essential hypertension/hyperlipidemia -Patient with previous CABG -Continue home amlodipine -Continue home baby aspirin -Continue atorvastatin-continue home carvedilol History of pneumothorax on the left -Occurred post cardiothoracic surgery -No acute issues -Chest x-ray has inflated lung on admitting film MASH/MASLD AST 65. ALT normal. Baseline 12. Normal. Morbid obesity -BMI 38.1 KG per square with other comorbidities as mentioned -Recommend weight loss -Complicates treatment, prognosis, outcomes DVT prophylaxis -Lovenox 40 daily CODE STATUS -Full code as verified at the time of admission patient's Clinical diagnosis, labs, imaging and plan of care discussed with the patient's son via the bedside Charges/Coding Visit Charges Inpatient E&M: 36599 Subs Hosp L2
[2024-08-22 17:14] LABS: Bedside Glucose 98 mg/dL (74-106)
[2024-08-22 17:16] LABS: Bedside Glucose 150 mg/dL (74-106)
[2024-08-22] MEDS: Atorvastatin Calcium 40 MG Tablet PO (22:36)
[2024-08-22 23:15] LABS: Bedside Glucose 123 mg/dL (74-106)
[2024-08-23] VITALS (10 sets, daily range): BP systolic 127–166; BP diastolic 78–94; PULSE 60–79; RESP 16–20; TEMP 36.4–36.7; O2SAT 93–97; BMI 37.7
[2024-08-23] MEDS: hydrALAZINE 20 MG/ML Vial 10 MG IV (02:54)
[2024-08-23] MEDS: ALPRAZolam 0.25 MG Tablet PO (02:54)
[2024-08-23] MEDS: Ipratropium/Albuterol Sulfate 3 ML AMPUL.NEB INHALATION ×3 (03:20→11:19)
[2024-08-23] MEDS: Piperacil/Tazobactam 3.375 GM in 0.9% Normal Saline (50mL MB+) 50 ML IV (06:06)
[2024-08-23] MEDS: Acetaminophen 500 MG Tablet 1000 MG PO ×2 (06:08→13:14)
[2024-08-23] MEDS: Benzonatate 100 MG Capsule 200 MG PO ×2 (06:09→13:14)
[2024-08-23 06:51] LABS: Bedside Glucose 109 mg/dL (74-106)
[2024-08-23] MEDS: Carvedilol 12.5 MG Tablet PO (06:54)
[2024-08-23 06:58] LABS: Absolute Lymphocyte Count 1.79 X10^3/uL (0.83-4.51); Absolute Neutrophil Count 9.1 X10^3/uL (2.0-7.7); Basophil# 0.11 X10^3/uL; Basophil% 0.9 % (0-1); Eosinophil# 0.38 X10^3/uL; Eosinophils% 3.1 % (0-5); Hematocrit 39.6 % (40-54); Hemoglobin 13.2 g/dL (13.0-16.5); Lymphocyte # 1.79 X10^3/ul (0.83-4.51); Lymphocyte % 14.4 % (19-41); Mean Corp Hgb Conc 33.3 g/dL (32-36); Mean Corpuscular Hgb 29.2 pg (27.0-32.0); Mean Corpuscular Volume 87.6 fL (80-94); Mean Platelet Vol. 8.6 fl (6.2-12.0); Monocyte# 0.68 X10^3/uL; Monocyte% 5.5 % (0-10); NRBC Flagged by Analyzer 0 % (0-5); Neutrophil # 9.12 X10^3/uL (2.7-7.7); Neutrophil % 73.3 % (47-70); Platelet Count 347 K/mm3 (150-450); RBC Distribution Width CV 14.3 % (11.6-14.6); RBC Distribution Width SD 45.8 fl (35.1-43.9); Red Blood Count 4.52 M/mm3 (4.6-6.2); White Blood Count 12.4 K/mm3 (4.4-11.0)
[2024-08-23 07:21] LABS: Anion Gap 5 (5-15); BUN 16 mg/dL (7-18); Calcium,Total 9.2 mg/dL (8.5-10.1); Chloride 111 mmol/L (98-107); Creatinine, Serum 1.07 mg/dL (0.70-1.30); EST Glomerular Filtration Rate 72 mL/min (>60); Est Glom Filt Rate - Afr Amer 87 mL/min (>60); Estimated Creatinine Clearance 66.52 ml/min; Glucose 120 mg/dL (74-106); Potassium 3.5 mmol/L (3.5-5.1); Sodium Level 139 mmol/L (136-145)
[2024-08-23] MEDS: Glimepiride 1 MG Tablet PO (08:18)
--- NOTE | 2024-08-23 08:38 | PN.HOSP_ITS ---
Reason for Visit Reason for Visit: Diagnoses Elevated white blood cell count, unspecified (08/20/24) Hypo-osmolality and hyponatremia (08/20/24) Pneumonia, unspecified organism (08/20/24) Acute respiratory failure with hypoxia (08/20/24) Objective Data Objective Data Vital Signs: Vital Signs Temp Pulse Resp BP Pulse Ox O2 Del Method O2 Flow Rate 98.0 F 60 16 127/78 H 97 Nasal Cannula 2 08/23/24 08:00 08/23/24 08:00 08/23/24 08:00 08/23/24 08:00 08/23/24 08:00 08/23/24 08:00 08/23/24 08:00 Oxygen Flow Rate (L/min) 2 Oxygen Delivery Method Nasal Cannula Weight: 219 lb 9.286 oz Body Mass Index (BMI) 37.7 Intake & Output: Intake and Output for Last 24 Hours 08/21/24 08/22/24 08/23/24 23:59 23:59 23:59 Intake Total 2345.0 / 2345.0 1105 / 1605 550 / 550 Balance 2345.0 / 2345.0 1105 / 1605 550 / 550 Lab / Micro Data 08/23/24 06:46 08/23/24 06:46 Labs: Laboratory Results - last 24 hr 08/21/24 12:50: POC Glucose 150 H 08/22/24 06:38: POC Glucose 136 H 08/22/24 11:33: POC Glucose 192 H 08/22/24 16:47: POC Glucose 98 08/22/24 22:33: POC Glucose 123 H 08/23/24 06:05: POC Glucose 109 H 08/23/24 06:46: WBC 12.4 H, RBC 4.52 L, Hgb 13.2, Hct 39.6 L, MCV 87.6, MCH 29.2, MCHC 33.3, RDW Std Deviation 45.8 H, RDW Coeff of Stephanie 14.3, Plt Count 347, MPV 8.6, Immature Gran % (Auto) 2.800 H, Neut % (Auto) 73.3 H, Lymph % (Auto) 14.4 L, Van Zandt % (Auto) 5.5, Eos % (Auto) 3.1, Baso % (Auto) 0.9, Absolute Neuts (auto) 9.1 H, Absolute Lymphs (auto) 1.79, Nucleated RBC % 0, Sodium 139, Potassium 3.5, Chloride 111 H, Carbon Dioxide 23.0, Anion Gap 5, BUN 16, Creatinine 1.07, Estim Creat Clear Calc 66.52, Est GFR (MDRD) Af Amer 87, Est GFR (MDRD) Non-Af 72, BUN/Creatinine Ratio 15.0, Glucose 120 H, Calcium 9.2 Micro: Microbiology 08/20/24 17:11 Urine, Clean Catch Urine Culture - Final Culture exhibits no growth. 08/20/24 04:00 Urine, Clean Catch Legionella Antigen - Final 08/20/24 04:00 Urine, Clean Catch Streptococcus pneumoniae Antigen (M - Final 08/20/24 22:20 Mucosa - Nasopharyngeal Respiratory Panel (PCR) - Final Human [place] 08/20/24 15:45 Mucosa - Nose SARS-CoV-2, Influenza & RSV (PCR) - Final Physical Exam Narrative Seen and examined Patient shortness of breath is much improved. Is still on 2 L of oxygen but slept good. Probably, patient does not have appointment with the ENT surgeon and has not seen before. Still has ear fullness but seems better and I feel he can hear better. Physical exam: General: Alert, Oriented x3, Cooperative HEENT: Bilateral hearing impairment right more than left. Atraumatic, PERRLA, EOMI, Normocephalic Oral: No Gingival or Mucosal Lesions/ Ulcerations Neck: Supple, No JVD, Negative Carotid Bruits Chest wall/Lungs: Air entry diminished in bilateral lung bases. Mild wheezing no coarse crepitations. Cardiovascular: Regular rate, Regular Rhythm, Normal S1, Normal S2, No M/G/R Abdomen: Bowel Sounds Present, Soft, Non Tender, Non-Distended : No dysuria. No renal angle tenderness. No suprapubic tenderness. Extremities: mild pedal edema, Capillary Refill Less than 3 Seconds Skin: No rashes, No breakdown Musculoskeletal: No Tenderness to Palpation of Joints or Extremities Neurological: Cranial nerves II-XII grossly intact, DTR 2+/4. No acute focal neurological deficit. Psych/Mental Status: Normal Affect, Appropriate. Assessment & Plan Assessment/Plan (1) Acute hypoxemic respiratory failure: (2) Pneumonia: (3) Leukocytosis: (4) Hyponatremia: PLAN: Plan 80-year-old gentleman was admitted with increasing shortness of breath, cough, hypoxia SpO2 80s on room air and fever. Diagnosed with ear infection pneumonia in urgent care a day before admission. Acute hypoxic respiratory failure secondary to pneumonia failure of outpatient therapy: Patient is being admitted in PCU. Chest x-ray images reviewed and shows bibasilar infiltrate predominant RLL. Respiratory panel positive of human metapneumovirus. Triple PCR for SARS-CoV-2, flu and RSV are negative. Urinary antigens are negative. Leukocytosis improving. Patient was on Augmentin and azithromycin for about 24 hours. Currently on Zosyn and azithromycin. On Mucinex DM. And symptomatic respiratory and PEP. On 6 to 7 L of oxygen. BNP and troponin normal. 08/22: Improvement in shortness of breath cough. No fever. Patient on 2 L of oxygen, improvement in hypoxia. Leukocytosis also improved. 08/23: Improvement on shortness of breath. Patient on 1 L of oxygen Mild hyponatremia: Admitting sodium 133 improved to 136 near normal. Hyponatremia resolved. 08/22 sodium 136. 08/23 serum sodium 139. In normal range. CKD stage IIIa -Renal function is at baseline with a creatinine of 1.50 -Monitor clinically -Avoid nephrotoxins 08/22: BUNs/creatinine 17/1.26. Creatinine improved. 08/23: BUNs/creatinine 16/1.07 DM-2 -Patient had hemoglobin A1c on 06/30/2024 which time was 5.8. - Hold home glimepiride -Accu-Chek before meals and at bedtime with Humalog sliding scale coverage and hypoglycemia protocol. Diabetic diet 08/22: Glucose is 113. CAD/essential hypertension/hyperlipidemia -Patient with previous CABG -Continue home amlodipine -Continue home baby aspirin -Continue atorvastatin-continue home carvedilol History of pneumothorax on the left -Occurred post cardiothoracic surgery -No acute issues -Chest x-ray has inflated lung on admitting film MASH/MASLD AST 65. ALT normal. Baseline 12. Normal. Morbid obesity -BMI 38.1 KG per square with other comorbidities as mentioned -Recommend weight loss -Complicates treatment, prognosis, outcomes DVT prophylaxis -Lovenox 40 daily CODE STATUS -Full code as verified at the time of admission patient's Clinical diagnosis, labs, imaging and plan of care discussed with the patient's son via the bedside Microbiology Past 72 Hours 08/20/24 17:11 Urine, Clean Catch Urine Culture - Final Culture exhibits no growth. 08/20/24 04:00 Urine, Clean Catch Legionella Antigen - Final 08/20/24 04:00 Urine, Clean Catch Streptococcus pneumoniae Antigen (M - Final 08/20/24 22:20 Mucosa - Nasopharyngeal Respiratory Panel (PCR) - Final Human [place] 08/20/24 15:45 Mucosa - Nose SARS-CoV-2, Influenza & RSV (PCR) - Final Laboratory Results 08/21/24 12:50: POC Glucose 150 H 08/22/24 06:38: POC Glucose 136 H 08/22/24 11:33: POC Glucose 192 H 08/22/24 16:47: POC Glucose 98 08/22/24 22:33: POC Glucose 123 H 08/23/24 06:05: POC Glucose 109 H 08/23/24 06:46: WBC 12.4 H, RBC 4.52 L, Hgb 13.2, Hct 39.6 L, MCV 87.6, MCH 29.2, MCHC 33.3, RDW Std Deviation 45.8 H, RDW Coeff of Stephanie 14.3, Plt Count 347, MPV 8.6, Immature Gran % (Auto) 2.800 H, Neut % (Auto) 73.3 H, Lymph % (Auto) 14.4 L, Van Zandt % (Auto) 5.5, Eos % (Auto) 3.1, Baso % (Auto) 0.9, Absolute Neuts (auto) 9.1 H, Absolute Lymphs (auto) 1.79, Nucleated RBC % 0, Sodium 139, Potassium 3.5, Chloride 111 H, Carbon Dioxide 23.0, Anion Gap 5, BUN 16, Creatinine 1.07, Estim Creat Clear Calc 66.52, Est GFR (MDRD) Af Amer 87, Est GFR (MDRD) Non-Af 72, BUN/Creatinine Ratio 15.0, Glucose 120 H, Calcium 9.2
[2024-08-23] MEDS: amLODIPine 10 MG Tablet PO (09:14)
[2024-08-23] MEDS: Enoxaparin 40 MG/0.4 ML Syringe SC (09:14)
[2024-08-23] MEDS: guaiFENesin/D-Methorphan TAB.SR.12H 2 TABLET PO (09:14)
[2024-08-23] MEDS: Aspirin E.C. 81 MG Tablet PO (09:14)
[2024-08-23] MEDS: Azithromycin 500 MG in 0.9% Normal Saline (250mL Bag) 250 ML 255 MG IV (09:15)
--- NOTE | 2024-08-23 11:28 | DCINST_ITS ---
Discharge Instructions Diet Discharge Diet: No restrictions DC O2, CPAP, BIPAP needs RN Home O2 Qualification: Home O2 Qualification: Is the patient on home oxygen No 08/23/24 13:21 Home O2 Qualification: AT REST 1- Pulse Ox at rest 96 08/23/24 13:21 Home O2 Qualification: WITH AMBULATION 1- Pulse Ox with ambulation 93 08/23/24 13:21 1- Oxygen Flow Rate with 0 08/23/24 13:21 ambulation Home O2 Discharge instructions: No Dressing / Incision Discharge Activity: Return to Normal Activity Weight Bearing Status: Weight bearing as tolerated Dressing / Incision Call your doctor if you observe: Fever of 101 or Higher, Coldness, Increased Pain, Numbness or Tingling, Change in Color, Inability to urinate, Inability to have a bowel movement, Shortness of breath, Dizziness, Fainting spells, Swelling in the ankles, Chest pain, Prolonged hiccupping, Increased palpitations (irregular heartbeat) and Calf discomfort Follow Up Care When: IN 2 WEEKS Test Results: Test results from this visit will be discussed in further detail at your follow- up appointment, if applicable. Discharge Plan Admission Admit Date/Time: 08/20/24 18:07 Primary Reason for Your Visit: Pneumonia, metapneumovirus. Ear infection Attending Provider: Leo Nuñez Primary Care Provider: Thierry Fermin Consulting Providers: Melissa Olivares Instructions Additional Instructions / Restrictions: Continue incentive spirometry and PEP for 1 week Discharge Orders/Prescriptions Prescriptions: New dextromethorphan-guaifenesin 60-1,200 mg tablet extended release 12 hr 1 tab PO BID 7 Days Qty: 14 0RF levofloxacin 500 mg tablet 500 mg PO DAILY 5 Days Qty: 5 0RF Continued amlodipine 10 MG tablet 10 mg PO DAILY Qty: 30 0RF carvedilol 12.5 mg tablet 12.5 mg PO Q12H glimepiride 1 mg tablet 1 mg PO DAILY atorvastatin 40 mg tablet 40 mg PO QHS Patient Comments: UNSURE OF STRENGTH BUT THINKS MAY BE 40 MH aspirin [Adult Aspirin Regimen] 81 mg tablet,delayed release (DR/EC) 81 mg PO DAILY Referrals / Follow Up: Davi Fan MD [Med Staff - Active Staff] - Within 2 Weeks Thierry Fermin DO [Primary Care Provider] - Within 1 Week (Need referral to ENT doctor.) Disposition Disposition (needs filled in before D/C Order can be placed): Home, Self Care
--- NOTE | 2024-08-23 11:32 | PCM.DC.SUM ---
Providers Date of Admission: 08/20/24 Date of Discharge: 08/23/24 Primary Care Physician: Dr. Thierry Fermin DO Reason For Visit: ACUTE HYPOXIC RESPIRATORY FAILURE Diagnosis Discharge Diagnosis (1) Acute hypoxemic respiratory failure: Status: Acute Code(s): J96.01 - Acute respiratory failure with hypoxia (2) Pneumonia: Status: Acute Code(s): J18.9 - Pneumonia, unspecified organism (3) Leukocytosis: Status: Acute Code(s): D72.829 - Elevated white blood cell count, unspecified (4) Hyponatremia: Status: Acute Code(s): E87.1 - Hypo-osmolality and hyponatremia Plan 80-year-old gentleman was admitted with increasing shortness of breath, cough, hypoxia SpO2 80s on room air and fever. Diagnosed with ear infection pneumonia in urgent care a day before admission. Acute hypoxic respiratory failure secondary to pneumonia/ER infection, probably otitis media complicated with failure of outpatient therapy: Patient is being admitted in PCU. Chest x-ray images reviewed and shows bibasilar infiltrate predominant RLL. Respiratory panel positive of human metapneumovirus. Triple PCR for SARS-CoV-2, flu and RSV are negative. Urinary antigens are negative. Leukocytosis improving. Patient was on Augmentin and azithromycin for about 24 hours. Currently on Zosyn and azithromycin. On Mucinex DM. And symptomatic respiratory and PEP. On 6 to 7 L of oxygen. BNP and troponin normal. 08/22: Improvement in shortness of breath cough. No fever. Patient on 2 L of oxygen, improvement in hypoxia. Leukocytosis also improved. 08/23: Improvement on shortness of breath. Oxygen was weaned down. Pulse ox 96% on room air. 93% on room air ambulating. Does not need oxygen. Acute hypoxic respiratory failure resolved. Patient is discharged on levofloxacin and Mucinex DM. Advised to follow with PCP in 1 weeks. He will need appointment with ENT surgeon for ear infection for source control. Advised to follow-up with ENT in 2 weeks Mild hyponatremia: Admitting sodium 133 improved to 136 near normal. Hyponatremia resolved. 08/22 sodium 136. 08/23 serum sodium 139. In normal range. CKD stage IIIa -Renal function is at baseline with a creatinine of 1.50 -Monitor clinically -Avoid nephrotoxins 08/22: BUNs/creatinine 21/08.. Creatinine improved. 08/23: BUNs/creatinine 1.07 DM-2 -Patient had hemoglobin A1c on 06/30/2024 which time was 5.8. - Hold home glimepiride -Accu-Chek before meals and at bedtime with Humalog sliding scale coverage and hypoglycemia protocol. Diabetic diet 08/22: Glucose is 113. 08/23: Glimepiride resumed yesterday. CAD/essential hypertension/hyperlipidemia -Patient with previous CABG -Continue home amlodipine -Continue home baby aspirin -Continue atorvastatin-continue home carvedilol History of pneumothorax on the left -Occurred post cardiothoracic surgery -No acute issues -Chest x-ray has inflated lung on admitting film MASH/MASLD AST 65. ALT normal. Baseline 12. Normal. Morbid obesity -BMI 38.1 KG per square with other comorbidities as mentioned -Recommend weight loss -Complicates treatment, prognosis, outcomes DVT prophylaxis -Lovenox 40 daily CODE STATUS -Full code as verified at the time of admission patient's Clinical diagnosis, labs, imaging and plan of care discussed with the patient's son via the bedside Discharge medication reconciliation done. Discharge follow-up instructions completed. Discharge process discussed with the patient and all questions were answered to patient's satisfaction. Follow with PCP in 1 to 2 weeks Total time spent, exact 35 minutes on discharge meds reconciliation, examination, coordination of care with nurses and ancillary staff, review of imaging and blood test and discussion with the patient on follow-up instructions. Microbiology Past 72 Hours 08/20/24 17:11 Urine, Clean Catch Urine Culture - Final Culture exhibits no growth. 08/20/24 04:00 Urine, Clean Catch Legionella Antigen - Final 08/20/24 04:00 Urine, Clean Catch Streptococcus pneumoniae Antigen (M - Final 08/20/24 22:20 Mucosa - Nasopharyngeal Respiratory Panel (PCR) - Final Human Tyrone 08/20/24 15:45 Mucosa - Nose SARS-CoV-2, Influenza & RSV (PCR) - Final Laboratory Results 08/21/24 12:50: POC Glucose 150 H 08/22/24 06:38: POC Glucose 136 H 08/22/24 11:33: POC Glucose 192 H 08/22/24 16:47: POC Glucose 98 08/22/24 22:33: POC Glucose 123 H 08/23/24 06:05: POC Glucose 109 H 08/23/24 06:46: WBC 12.4 H, RBC 4.52 L, Hgb 13.2, Hct 39.6 L, MCV 87.6, MCH 29.2, MCHC 33.3, RDW Std Deviation 45.8 H, RDW Coeff of Stephanie 14.3, Plt Count 347, MPV 8.6, Immature Gran % (Auto) 2.800 H, Neut % (Auto) 73.3 H, Lymph % (Auto) 14.4 L, Plumas % (Auto) 5.5, Eos % (Auto) 3.1, Baso % (Auto) 0.9, Absolute Neuts (auto) 9.1 H, Absolute Lymphs (auto) 1.79, Nucleated RBC % 0, Sodium 139, Potassium 3.5, Chloride 111 H, Carbon Dioxide 23.0, Anion Gap 5, BUN 16, Creatinine 1.07, Estim Creat Clear Calc 66.52, Est GFR (MDRD) Af Amer 87, Est GFR (MDRD) Non-Af 72, BUN/Creatinine Ratio 15.0, Glucose 120 H, Calcium 9.2 Medications at Discharge Home Medications amlodipine 10 mg tablet 10 mg PO DAILY blood pressure #30 TABLETS 04/23/16 aspirin 81 mg tablet,delayed release (Adult Aspirin Regimen) 81 mg PO DAILY heart health 08/20/24 atorvastatin 40 mg tablet 40 mg PO QHS cholesterol 08/20/24 carvedilol 12.5 mg tablet 12.5 mg PO Q12H blood pressure 08/20/24 glimepiride 1 mg tablet 1 mg PO DAILY diabetes 08/20/24 dextromethorphan-guaifenesin ER 60 mg-1,200 mg tab,extend release,12hr 1 tab PO BID 7 days #14 tabs 08/23/24 levofloxacin 500 mg tablet 500 mg PO DAILY 5 days #5 tabs 08/23/24 Physical Exam Narrative Seen and examined Patient does not need oxygen. Probably, patient does not have appointment with the ENT surgeon and has not seen before. Still has ear fullness but seems better and he can hear better. Physical exam: General: Alert, Oriented x3, Cooperative HEENT: Bilateral hearing impairment right more than left. Atraumatic, PERRLA, EOMI, Normocephalic Oral: No Gingival or Mucosal Lesions/ Ulcerations Neck: Supple, No JVD, Negative Carotid Bruits Chest wall/Lungs: Air entry diminished in bilateral lung bases. Mild wheezing no coarse crepitations. Cardiovascular: Regular rate, Regular Rhythm, Normal S1, Normal S2, No M/G/R Abdomen: Bowel Sounds Present, Soft, Non Tender, Non-Distended : No dysuria. No renal angle tenderness. No suprapubic tenderness. Extremities: mild pedal edema, Capillary Refill Less than 3 Seconds Skin: No rashes, No breakdown Musculoskeletal: No Tenderness to Palpation of Joints or Extremities Neurological: Cranial nerves II-XII grossly intact, DTR 2+/4. No acute focal neurological deficit. Psych/Mental Status: Normal Affect, Appropriate. Weight / BMI Weight Weight: 219 lb 9.286 oz Body Mass Index (BMI) 37.7 ABG / Lab / Microbiology Data 08/23/24 06:46 08/23/24 06:46 Laboratory: Laboratory Results - last 24 hr 08/21/24 12:50: POC Glucose 150 H 08/22/24 16:47: POC Glucose 98 08/22/24 22:33: POC Glucose 123 H 08/23/24 06:05: POC Glucose 109 H 08/23/24 06:46: WBC 12.4 H, RBC 4.52 L, Hgb 13.2, Hct 39.6 L, MCV 87.6, MCH 29.2, MCHC 33.3, RDW Std Deviation 45.8 H, RDW Coeff of Stephanie 14.3, Plt Count 347, MPV 8.6, Immature Gran % (Auto) 2.800 H, Neut % (Auto) 73.3 H, Lymph % (Auto) 14.4 L, [place] % (Auto) 5.5, Eos % (Auto) 3.1, Baso % (Auto) 0.9, Absolute Neuts (auto) 9.1 H, Absolute Lymphs (auto) 1.79, Nucleated RBC % 0, Sodium 139, Potassium 3.5, Chloride 111 H, Carbon Dioxide 23.0, Anion Gap 5, BUN 16, Creatinine 1.07, Estim Creat Clear Calc 66.52, Est GFR (MDRD) Af Amer 87, Est GFR (MDRD) Non-Af 72, BUN/Creatinine Ratio 15.0, Glucose 120 H, Calcium 9.2 Microbiology: Microbiology 08/20/24 17:11 Urine, Clean Catch Urine Culture - Final Culture exhibits no growth. 08/20/24 04:00 Urine, Clean Catch Legionella Antigen - Final 08/20/24 04:00 Urine, Clean Catch Streptococcus pneumoniae Antigen (M - Final 08/20/24 22:20 Mucosa - Nasopharyngeal Respiratory Panel (PCR) - Final Human [place] 08/20/24 15:45 Mucosa - Nose SARS-CoV-2, Influenza & RSV (PCR) - Final D/C Instructions Discharge Diet: No restrictions Weight Bearing Status: Weight bearing as tolerated Call your doctor if you observe: Fever of 101 or Higher, Coldness, Increased Pain, Numbness or Tingling, Change in Color, Inability to urinate, Inability to have a bowel movement, Shortness of breath, Dizziness, Fainting spells, Swelling in the ankles, Chest pain, Prolonged hiccupping, Increased palpitations (irregular heartbeat) and Calf discomfort DC O2, CPAP, BIPAP Needs RN Home O2 Qualification: Home O2 Qualification: Is the patient on home oxygen No 08/23/24 13:21 Home O2 Qualification: AT REST 1- Pulse Ox at rest 96 08/23/24 13:21 Home O2 Qualification: WITH AMBULATION 1- Pulse Ox with ambulation 93 08/23/24 13:21 1- Oxygen Flow Rate with 0 08/23/24 13:21 ambulation Home O2 Discharge instructions: No When: IN 2 WEEKS Meaningful Use Info Meaningful Use Meaningful Use Diagnoses (Choose all that apply): None applicable Ischemic Stroke Statin Dosing Therapy Reference: STATIN DOSE THERAPY REFERENCE: * Patients > 75 years receive moderate or high dose statin therapy. * Patients 75 years or YOUNGER should receive HIGH intensity statin dose unless contraindicated. You will be required to document reason for non-treatment if statin daily dose does not meet guidelines. HIGH DOSE STATIN THERAPY DAILY Atorvastatin > than or = to 40 mg Rosuvastatin > than or = to 20 mg Amlodipine + Atorvastatin > than or = to 2.5/40 mg Ezetimibe + Simvastatin 10/80 mg Simvastatin 80mg Discharge Plan Admission Admit Date/Time: 08/20/24 18:07 Primary Reason for Your Visit: Pneumonia, metapneumovirus. Ear infection Attending Provider: Leo Nuñez Primary Care Provider: Thierry Fermin Consulting Providers: Melissa Olivares Instructions Additional Instructions / Restrictions: Continue incentive spirometry and PEP for 1 week Discharge Orders/Prescriptions Prescriptions: New dextromethorphan-guaifenesin 60-1,200 mg tablet extended release 12 hr 1 tab PO BID 7 Days Qty: 14 0RF levofloxacin 500 mg tablet 500 mg PO DAILY 5 Days Qty: 5 0RF Continued amlodipine 10 MG tablet 10 mg PO DAILY Qty: 30 0RF carvedilol 12.5 mg tablet 12.5 mg PO Q12H glimepiride 1 mg tablet 1 mg PO DAILY atorvastatin 40 mg tablet 40 mg PO QHS Patient Comments: UNSURE OF STRENGTH BUT THINKS MAY BE 40 MH aspirin [Adult Aspirin Regimen] 81 mg tablet,delayed release (DR/EC) 81 mg PO DAILY Referrals / Follow Up: Davi Fan MD [Med Staff - Active Staff] - Within 2 Weeks Thierry Fermin DO [Primary Care Provider] - Within 1 Week (Need referral to ENT doctor.) Disposition Disposition (needs filled in before D/C Order can be placed): Home, Self Care Charges/Coding Visit Charges Inpatient E&M: 50361 Disch Hosp >30min
== END 2024-08-23 14:50 | disposition home or self-care (01) | DRG 189 ==
LOC: ED 19:14 → PCU 19:19
PROVIDERS: Admitting Provider Internal Medicine; Emergency Provider Emergency Medicine; PCP Family Medicine; Visit Provider Internal Medicine
DX: J96.01 Acute respiratory failure with hypoxia (principal); J12.3 Human metapneumovirus pneumonia; E87.1 Hypo-osmolality and hyponatremia; N18.31 Chronic kidney disease, stage 3a; E11.22 Type 2 diabetes mellitus with diabetic chronic kidney disease; E66.01 Morbid (severe) obesity due to excess calories; K75.81 Nonalcoholic steatohepatitis (NASH); I12.9 Hypertensive chronic kidney disease with stage 1 through stage 4 chronic kidney disease, or unspecified chronic kidney disease; E78.5 Hyperlipidemia, unspecified; I25.10 Atherosclerotic heart disease of native coronary artery without angina pectoris; H66.90 Otitis media, unspecified, unspecified ear; Z11.52 Encounter for screening for COVID-19; E88.810 Metabolic syndrome; H91.93 Unspecified hearing loss, bilateral; Z68.38 Body mass index [BMI] 38.0-38.9, adult; Z79.82 Long term (current) use of aspirin; Z79.84 Long term (current) use of oral hypoglycemic drugs; Z79.899 Other long term (current) drug therapy; Z86.16 Personal history of COVID-19; Z95.1 Presence of aortocoronary bypass graft
CPT/HCPCS: 36415; 71045; 80048; 80053; 81001; 82962; 83735; 83880; 84100; 84484; 85025; 87040; 87086; 87449; 87631; 87633; 93005; 94640; 94668; 97161; 97165; 97802; 99252; 99285; A4216; G0463; J0696

== ENCOUNTER → 2025-01-07 | Outpatient (CLI) | payer MEDICARE, SELFPAY ==
--- NOTE | 2025-01-07 08:08 | MRI_ITS ---
EXAM: PELVIS W/WO CONTRAST 01/07/2025 CLINICAL HISTORY: PERINEAL PAIN ELEVATED PSA. TECHNIQUE: MRI of the pelvis was performed. Multiplanar and multisequence images were obtained intravenous gadolinium contrast. CONTRAST: Clariscan VOLUME: 20 mL COMPARISON: None. FINDINGS: Prostate Size: 6.8 X 4.6 X 5.9 cm. Volume: 95 cc. Transition zone: Findings of moderate benign prostatic hyperplasia. Multiple well-defined nodules with the largest at 10 o'clock measuring 1.3 cm. No evidence of diffusion restriction or hemorrhage. PI-RADS 2. Peripheral Zone: Well-defined 1.2 cm nodule in the right paramedian aspect of the peripheral zone at 7 o'clock showing restricted diffusion. PI-RADS 4. Seminal vesicles: Slightly prominent. Bladder: Trabeculated thick walled. Bones: No abnormal signal or aggressive lesion seen. MRI/Pelvis W/WO Contrast IMPRESSION: Prostate Size: 6.8 X 4.6 X 5.9 cm. Volume: 95 cc. Transition zone: PI-RADS 2. Peripheral Zone: PI-RADS 4. Reading Location: [facility] [address]
--- OUTSIDE RECORDS SUMMARY | 2025-01-07 08:26 | XMS RPT_ITS | CCD ---
Author Organization [facility] Care Team Providers Care State [employer] Relations Deputy Director Name Role Phone Santino Fermin DO A Primary Care Provider DOVE, SANDERS Referring Unavailable IONA, SANTINO A Primary Care Unavailable DOVE, SANDERS Referring Unavailable IONA, SANTINO A Primary Care Unavailable DOVE, SANDERS Referring Unavailable IONA, SANTINO A Primary Care Unavailable DOVE, SANDERS Referring Unavailable IONA, SANTINO A Primary Care Unavailable DOVE, SANDERS Referring Unavailable IONA, SANTINO A Primary Care Unavailable DOVE, SANDERS Referring Unavailable IONA, SANTINO A Primary Care Unavailable DOVE, SANDERS Referring Unavailable IONA, SANTINO A Primary Care Unavailable DOVE, SANDERS Referring Unavailable IONA, SANTINO A Primary Care Unavailable DOVE, SANDERS Referring Unavailable IONA, SANTINO A Primary Care Unavailable DOVE, SANDERS Referring Unavailable IONA, SANTINO A Primary Care Unavailable DOVE, SANDERS Referring Unavailable IONA, SANTINO A Primary Care Unavailable DOVE, SANDERS Referring Unavailable IONA, SANTINO A Primary Care Unavailable DOVE, SANDERS Referring Unavailable IONA, SANTINO A Primary Care Unavailable DOVE, SANDERS Referring Unavailable IONA, SANTINO A Primary Care Unavailable DOVE, SANDERS Referring Unavailable IONA, SANTINO A Primary Care Unavailable DOVE, SANDERS Referring Unavailable IONA, SANTINO A Primary Care Unavailable DOVE, SANDERS Referring Unavailable IONA, SANTINO A Primary Care Unavailable DOVE, SANDERS Referring Unavailable IONA, SANTINO A Primary Care Unavailable DOVE, SANDERS Referring Unavailable IONA, SANTINO A Primary Care Unavailable DOVE, SANDERS Referring Unavailable IONA, SANTINO A Primary Care Unavailable DOVE, SANDERS Referring Unavailable IONA, SANTINO A Primary Care Unavailable DOVE, SANDERS Referring Unavailable IONA, SANTINO A Primary Care Unavailable DOVE, SANDERS Referring Unavailable IONA, SANTINO A Primary Care Unavailable DERRELL, MARILYN Referring Unavailable IONA, SANTINO A Primary Care Unavailable DOVE, MARILYN Referring Unavailable IONA, SANTINO A Primary Care Unavailable DOVEMARILYN ROWLEY Referring Unavailable IONA, SANTINO A Primary Care Unavailable Iona DO, Santino A Primary Care Provider Iona Santino Referring Unavailable Iona, Santino Attending Unavailable Iona, Santino Primary Care Unavailable Melissa Olivares Admitting Unavailable Marshall, Melissa Consulting Unavailable Joaquin, Leo Attending Unavailable Iona, Santino Primary Care Unavailable Joaquin, Leo Attending Unavailable Iona, Santino Primary Care Unavailable Marshall, Melissa Consulting Unavailable Marshall, Melissa Admitting Unavailable Joaquin, Leo Consulting Unavailable Melissa Olivares Attending Unavailable Iona, Santino Primary Care Unavailable Iona, Santino Referring Unavailable Iona, Santino Attending Unavailable Iona, Santino Primary Care Unavailable Iona, Santino Referring Unavailable Iona, Santino Attending Unavailable DERRELL, MARILYN Referring Unavailable IONA, SANTINO A Primary Care Unavailable MARILYN DOVE Referring Unavailable IONA, SANTINO A Primary Care Unavailable GATO ZALDIVAR Attending Unavailable IONA, SANTINO A Primary Care Unavailable DERRELL, MARILYN Attending Unavailable DOVE, MARILYN Referring Unavailable IONA, SANTINO A Primary Care Unavailable DERRELL, MARILYN Attending Unavailable DOVE, MARILYN Referring Unavailable IONA, SANTINO A Primary Care Unavailable Medications Current Medications Medication Drug Class(es) Dates Sig (Normalized) Sig (Original) acetaminophen 325 mg oral tablet (20 sources) Start: 04-24-2023 take 2 tablets by mouth every six hours as needed acetaminophen (TYLENOL) 325 mg tablet Take 2 tablets by mouth every 6 hours as needed for pain. 40 tablet 04/24/2023 2:07 PM EDT 04/24/2023 Active Comment on above: Take 2 tablets by mo [facility] every 6 hours as needed for pain. amiodarone hydrochloride 200 mg oral tablet (7 sources) Antiarrhythmic Start: 04-25-2023 End: 05-23-2023 take 1 tablet by mouth once daily amiodarone (PACERONE) 200 mg tablet Take 1 tablet by mouth once daily for 28 days. 28 tablet 0 04/25/2023 05/23/2023 Active Comment on above: Take 1 tablet by lelo once daily for 28 days. amLODIPine 10 mg oral tablet (20 sources) Dihydropyridine Calcium Channel Sydni Start: 06-26-2024 take 1 tablet by mouth once daily amLODIPine (NORVASC) 10 mg tablet Indications: Essential hypertension Take 1 tablet by mouth once daily. 90 tablet 3 06/26/2024 Active Start: 05-29-2023 End: 06-26-2024 take 2 tablets by mouth once daily amLODIPine (NORVASC) 5 mg tablet Take 2 tablets by mouth once daily. 30 tablet 2 05/29/2023 06/26/2024 Discontinued Start: 05-01-2023 take 2 tablets by mo [facility] once daily amLODIPine (NORVASC) 5 mg tablet Take 2 tablets by mouth once daily. 30 tablet 2 05/01/2023 Active Start: 04-25-2023 End: 05-01-2023 take 1 tablet by mouth once daily amLODIPine (NORVASC) 5 mg tablet Take 1 tablet by mouth once daily. 30 tablet 2 04/25/2023 05/01/2023 Discontinued (Adjust Sig - Block E-Cancel) Start: 04-23-2016 take 10 mg by mouth once daily Amlodipine Active 10 MG PO DAILY April 22, 2016 11:00pm Comment on above: Take 1 tablet by [facility] once daily. Take 2 tablets by [facility] once daily. apixaban 2.5 mg oral tablet (2 sources) Factor Xa Inhibitor Start: 12-11-19 take 1 tablet by mouth twice daily Apixaban (Eliquis) 2.5 mg tablet Active 2.5 MG PO TWICE A DAY December 09, 2020 11:00pm aspirin 81 mg chewable tablet (20 sources) Platelet Aggregation Inhibitor, Nonsteroidal Anti-inflammatory Drug Start: 04-25-20 take 1 tablet by mouth once daily aspirin 81 mg chewable tablet 1 tablet by ORAL/FEEDING TUBE route once daily. 04/25/2023 Active Comment on above: 1 tablet by ORAL/FEE DING TUBE route once daily. atorvastatin 40 mg oral tablet (20 sources) HMG-CoA Reductase Inhibitor Start: 08-15-19 End: 08-27-19 take 1 tablet by mouth once daily at bedtime atorvastatin (LIPITOR) 40 mg tablet TAKE 1 TABLET BY MOUTH ONCE DAILY AT BEDTIME 30 tablet 2 08/27/2024 Active Start: 04-24-2023 take 1 tablet by lelo th once daily at bedtime atorvastatin (LIPITOR) 40 mg tablet Take 1 tablet by mouth daily at bedtime. 30 tablet 2 04/24/2023 Active Comment on above: Take 1 tablet by lelo th daily at bedtime. carvedilol 12.5 mg oral tablet (20 sources) alpha-Adrenergic Sydni, beta-Adrenergic Sydni Start: 08-15-2023 End: 12-31-2023 carvedilol (COREG) 12.5 mg tablet Indications: Coronary artery dise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 Take 1 tablet in the morning and 1/2 tablet at night. 180 tablet 3 12/31/2023 Active Start: 07-22-2023 take 1 tablet by lelo th twice daily at mealtime carvedilol (COREG) 12.5 mg tablet Take 1 tablet by mouth two times a day with meals. 60 tablet 0 07/22/2023 Active Start: 04-24-2023 take 1 tablet by lelo th twice daily at mealtime carvedilol (COREG) 12.5 mg tablet Take 1 tablet by mouth twice daily with meals. 60 tablet 2 04/24/2023 Active Comment on above: Take 1 tablet by lelo th twice daily with meals. Take 1 tablet by lelo th two times a day with meals. ciprofloxacin 500 mg oral tablet (2 sources) Quinolone Antimicrobial Start: End: take 1 tablet by mouth every twelve hours ciprofloxacin HCl (CIPRO) 500 mg tablet Take 1 tablet by mouth every 12 hours for 7 doses. 7 tablet 0 04/24/2023 04/28/2023 Active Comment on above: Take 1 tablet by lelo th every 12 hours for 7 doses. dexamethasone 6 mg oral tablet (2 sources) Corticosteroid Start: take 6 mg by mouth once daily Dexamethasone Active 6 MG PO DAILY December 09, 2020 11:00pm glimepiride 1 mg oral tablet (20 sources) Sulfonylurea Start: take 1 tablet by mouth once daily at breakfast glimepiride (AMARYL) 1 mg tablet Take 1 tablet by mouth daily with breakfast. 30 tablet 07/22/2023 Active Start: 04-25-2023 take 1 tablet by lelo th once daily at breakfast glimepiride (AMARYL) 1 mg tablet Take 1 tablet by mouth daily with breakfast. 30 tablet 2 04/25/2023 Active Comment on above: Take 1 tablet by lelo daily with breakfast. 12 hr guaiFENesin 1200 mg extended release oral tablet (2 sources) Start : 12-10 take 1 tablet by mouth twice daily, then take 1 tablet by mouth every twelve hours Guaifenesin (Mucus Relief Er) 1,200 mg Tablet Extended Release 12hr Active 1200 MG PO TWICE A DAY December 09, 2020 11:00pm hydroCHLOROthiazide 25 mg oral tablet (2 sources) Thiazide Diuretic Start : 04-23 take 25 mg by mouth once daily Hydrochlorothiazide Active 25 MG PO DAILY April 22, 2016 11:00pm linezolid 600 mg oral tablet (5 sources) Oxazolidinone Antibacterial Start : 04-24 End: 05-03 take 1 tablet by mouth every twelve hours linezolid (ZYVOX) 600 mg tablet Take 1 tablet by mouth every 12 hours for 17 doses. 17 tablet 0 04/24/2023 05/03/2023 Active Comment on above: Take 1 tablet by lelo every 12 hours for 17 doses. tamsulosin hydrochloride 0.4 mg oral capsule (20 sources) alpha-Adrenergic Sydni Start : 05-21 take 1 capsule by mouth once daily at bedtime tamsulosin (FLOMAX) 0.4 mg Indications: BPH with urinary obstruction Take 1 capsule by mouth daily at bedtime. 30 capsule 3 05/21/2023 Active Comment on above: Take 1 capsule by mo [facility] daily at bedtime. valACYclovir 1000 mg oral tablet (3 sources) Herpesvirus Nucleoside Analog DNA Polymerase Inhibitor, Herpes Simplex Virus Nucleoside Analog DNA Polymerase Inhibitor, Herpes Zoster Virus Nucleoside Analog DNA Polymerase Inhibitor Start : 01-12 End: 01-19 valACYclovir (VALTREX) 1 gram tablet Indications: Herpes zoster with other complication , Stage 3a chronic kidney disease (HCC) Take 1 tablet by mouth two times a day for 7 days. FOR 7 DAYS. 14 tablet 0 01/13/2024 01/20/2024 Active Start: 12-31-2023 End: 01-07-2024 take 1 tablet by mouth twice daily valACYclovir (VALTREX) 1 gram tablet Indications: Coronary artery dise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 , Herpes zoster with complication Take 1 tablet by mouth two times a day for 7 days. 14 tablet 0 12/31/2023 01/07/2024 Active Completed/Discontinued Medications Medication Drug Class(es) Dates Sig (Normalized) Sig (Original) bumetanide 1 mg oral tablet (20 sources) Loop Diuretic Start: 07-02-2023 bumetanide (BUMEX) 1 mg tablet Indications: Essential hypertension Take 1 tablet Saturday, Saturday and Saturday. 90 tablet 1 07/02/2023 Active Start: 04-25-2023 take 1 tablet by lelo th once daily bumetanide (BUMEX) 1 mg tablet Take 1 tablet by mouth once daily. 30 tablet 1 04/25/2023 Active Comment on above: Take 1 tablet by lelo th once daily. Take 1 tablet Saturday , Saturday and Saturday. 24 hr dilTIAZem hydrochloride 300 mg extended release oral capsule (2 sources) Calcium Channel Sydni Start: 6 End: 6 take 1 capsule by mouth once daily Diltiazem Hcl (Tiazac) 300 MG Capsule.Er Discontinued 300 MG PO DAILY April 21, 2016 11:00pm April 23, 2016 7:54am doxycycline hyclate 100 mg oral capsule (4 sources) Tetracycline-class Drug Start: 3 End: 3 take 1 capsule by mouth twice daily doxycycline hyclate (VIBRAMYCIN) 100 mg capsule Take 1 capsule by mouth two times a day for 3 days. 6 capsule 0 06/05/2023 06/05/2023 Discontinued Comment on above: Take 1 capsule by mo uth two times a day for 7 days. Take 1 capsule by mo uth two times a day for 3 days. gabapentin 100 mg oral capsule (11 sources) Anti-epileptic Agent Start: 4 End: 4 take 3 capsules by mouth twice daily gabapentin (NEURONTIN) 100 mg capsule Indications: Herpes zoster with other complication , Post herpetic neuralgia Take 3 capsules by mouth two times a day for 30 days. 180 capsule 01/13/2024 06/26/2024 Discontinued (Course of therapy completed) Start: 01-13-2024 End: 01-13-2024 take 1 capsule by mouth twice daily gabapentin (NEURONTIN) 300 mg capsule Indications: Herpes zoster with other complication , Post herpetic neuralgia Take 1 capsule by mouth two times a day for 30 days. 60 capsule 0 01/13/2024 01/13/2024 Discontinued (Duplicate Entry) Start: 07-03-2023 End: 07-17-2023 take 1 capsule by mouth once daily at bedtime gabapentin (NEURONTIN) 100 mg capsule Take 1 capsule by mouth daily at bedtime for 14 days. 14 capsule 0 07/03/2023 Active Comment on above: Take 1 capsule by mo uth daily at bedtime for 14 days. Problems Active Problems Problem Classification Problem Date Documented Da te Episodic/Chronic Abdominal pain (1 source) Pelvic and perineal pain; Translations: [Pelvic and perineal pain] Onset: 01-04-2025 Episodic Cardiac dysrhythmias (5 sources) Palpitations; Translations: [Palpitations] Onset: 12-14-2024 12-16-2024 Episodic Chronic kidney disease (20 sources) Chronic kidney disease stage 3; Translations: [Stage 3 chronic kidney disease] Onset: 04-13-2023 04-24-2023 Chronic Coronary atherosclerosis and other heart disease (20 sources) Coronary arteriosclerosis; Translations: [Atherosclerotic heart disease of [place] coronary artery without angina pectoris] Onset: 04-02-2023 Resolved: 04-13-2023 04-24-2023 Chronic Coronary atherosclerosis and other heart disease (2 sources) Presence of aortocoronary bypass graft; Translations: [Hx of CABG] Onset: 07-11-2023 Episodic Diabetes mellitus with complications (1 source) Type 2 diabetes mellitus with other diabetic kidney complication; Translations: [Type 2 diabetes mellitus with other diabetic kidney complication] Onset: 07-08-2024 Chronic Diabetes mellitus without complication (20 sources) Type 2 diabetes mellitus without complication; Translations: [Type 2 diabetes mellitus without complications] Onset: 04-04-2023 04-24-2023 Chronic Diseases of white blood cells (1 source) Elevated white blood cell count, unspecified; Translations: [Elevated white blood cell count, unspecified] Onset: 08-23-2024 Chronic Disorders of lipid metabolism (20 sources) Hyperlipidemia; Translations: [Hyperlipidemia, unspecified] Onset: 04-04-2023 04-24-2023 Chronic Essential hypertension (20 sources) Hypertensive disorder; Translations: [Essential (primary) hypertension] Onset: 04-02-2023 04-24-2023 Chronic Heart valve disorders (3 sources) Heart murmur; Translations: [Cardiac murmur, unspecified] Onset: 12-14-2024 12-16-2024 Episodic Hyperplasia of prostate (1 source) Benign prostatic hypertrophy with outflow obstruction; Translations: [Benign prostatic hyperplasia with lower urinary tract symptoms] 05-21-2023 Chronic Other aftercare (1 source) Surgical follow-up; Translations: [Encounter for follow-up examination after completed treatment for conditions other than malignant neoplasm] 05-01-2023 Episodic Other aftercare (4 sources) Wound finding; Translations: [Encounter for other specified aftercare] 05-30-2023 Episodic Other connective tissue disease (2 sources) Pain in bilateral legs; Translations: [Pain in right leg] 06-26-2024 Episodic Other connective tissue disease (1 source) Pain in right leg; Translations: [Leg pain, bilateral] Onset: 07-07-2024 Episodic Other connective tissue disease (1 source) Pain in left leg; Translations: [Leg pain, bilateral] Onset: 07-07-2024 Episodic Other connective tissue disease (1 source) Other symptoms and signs involving the nervous system; Translations: [Neurogenic claudication] Onset: 12-14-2024 Episodic Other hematologic conditions (2 sources) Raised cardiac enzyme or marker; Translations: [Other specified abnormalities of plasma proteins] 12-07-2020 Episodic Other injuries and conditions due to external causes (1 source) Injury of knee; Translations: [Unspecified injury of right lower leg, initial encounter] Episodic Other injuries and conditions due to external causes (1 source) Injury of right knee; Translations: [Unspecified injury of right lower leg, initial encounter] 08-06-2019 Episodic Other nervous system disorders (2 sources) Neurogenic claudication; Translations: [Other symptoms and signs involving the nervous system] 12-16-2024 Episodic Other nutritional; endocrine; and metabolic disorders (20 sources) Obese class II; Translations: [Obesity, unspecified] Onset: 04-05-2023 04-24-2023 Chronic Other screening for suspected conditions (not mental disorders or infectious disease) (1 source) Elevated prostate specific antigen [PSA]; Translations: [Elevated prostate specific antigen [PSA]] Onset: 01-04-2025 Episodic Other skin disorders (1 source) Eruption; Translations: [Rash and other nonspecific skin eruption] 01-13-2024 Episodic Residual codes; unclassified (1 source) Sleep apnea, unspecified; Translations: [Sleep apnea, unspecified] Onset: 01-04-2025 Chronic Viral infection (5 sources) Disease caused by 2019-nCoV; Translations: [COVID-19] 12-07-2020 Episodic Past or Other Problems Problem Classification Problem Date Documented Date Episodic/Chronic Acute and unspecified renal failure (20 sources) Acute injury of kidney; Translations: [Acute kidney failure, unspecified] Onset: 04-04-2023 04-24-2023 Episodic Administrative/social admission (20 sources) Patient encounter status; Translations: [Encounter for counseling for [id number] transition] Onset: 04-24-2023 04-24-2023 Episodic Bacterial infection; unspecified site (20 sources) Infection due to ESBL Escherichia coli; Translations: [Other bacterial infections of unspecified site] Onset: 04-20-2023 04-24-2023 Episodic Cardiac dysrhythmias (10 sources) Paroxysmal atrial fibrillation; Translations: [Paroxysmal atrial fibrillation] Onset: 04-11-2023 Resolved: 04-22-2023 04-22-2023 Chronic Complications of surgical procedures or medical care (20 sources) Atrial fibrillation; Translations: [Other postprocedural complications and disorders of the circulatory system, not elsewhere classified] Onset: 04-15-2023 Resolved: 01-14-2024 04-24-2023 Episodic Diabetes mellitus without complication (10 sources) Metabolic stress hyperglycemia; Translations: [Hyperglycemia, unspecified] Onset: 04-09-2023 Resolved: 04-22-2023 04-22-2023 Episodic Fluid and electrolyte disorders (11 sources) Hyponatremia; Translations: [Hypo-osmolality and hyponatremia] Onset: 04-20-2023 Resolved: 04-22-2023 04-22-2023 Episodic Other circulatory disease (10 sources) Low blood pressure; Translations: [Hypotension, unspecified] Onset: 04-09-2023 Resolved: 04-10-2023 04-10-2023 Episodic Other lower respiratory disease (10 sources) Hypoxemia; Translations: [Hypoxemia] Onset: 04-09-2023 Resolved: 04-22-2023 04-22-2023 Episodic Other nervous system disorders (20 sources) Postoperative pain ; Translations: [Other acute postprocedural pain] Onset: 04-09-2023 04-24-2023 Episodic Other nutritional; endocrine; and metabolic disorders (10 sources) Body mass index 40+ - severely obese; Translations: [Morbid (severe) obesity due to excess calories] Onset: 04-15-2023 Resolved: 04-22-2023 04-22-2023 Chronic Pleurisy; pneumothorax; pulmonary collapse (20 sources) Right pneumothorax; Translations: [Pneumothorax, unspecified] Onset: 04-09-2023 04-24-2023 Episodic Pneumonia (except that caused by tuberculosis or sexually transmitted disease) (4 sources) Severe acute respiratory syndrome; Translations: [Pneumonia due to SARS-associated coronavirus] Onset: 08-23-2024 12-07-2020 Episodic Residual codes; unclassified (10 sources) Problem with continuity of care; Translations: [Problem with continuity of care] Onset: 04-15-2023 Resolved: 04-24-2023 04-24-2023 Episodic Respiratory failure; insufficiency; arrest (adult) (10 sources) Ventilator finding; Translations: [Dependence on respirator [ventilator] status] Onset: 04-09-2023 Resolved: 04-13-2023 04-13-2023 Chronic Respiratory failure; insufficiency; arrest (adult) (3 sources) Acute hypoxemic respiratory failure; Translations: [Acute respiratory failure with hypoxia] Onset: 08-23-2024 12-07-2020 Episodic Urinary tract infections (20 sources) Recurrent urinary tract infection; Translations: [Urinary tract infection, site not specified] Onset: 04-20-2023 04-24-2023 Episodic Results Test Name Value Interpretation Reference Range Facility Comprehensive metabolic 2000 panelon 12-15-2024 Albumin [Mass/Vol] 4.3 g/dL 3.9 - 4.9 g/dL [facility] ALP [Catalytic activity/Vol] 79 U/L 38 - 113 U/L [facility] ALT [Catalytic activity/Vol] 23 U/L 10 - 54 U/L [facility] Anion gap [Moles/Vol] 13 mmol/L 8 - 15 mmol/L [facility] AST [Catalytic activity/Vol] 26 U/L 14 - 40 U/L [facility] Bilirubin [Mass/Vol] 0.5 mg/dL 0.2 - 1 .3 mg/dL [facility] Calcium [Mass/Vol] 9.9 mg/dL 8.5 - 10. 2 mg/dL [facility] Chloride [Moles/Vol] 106 mmol/L 98 - 10 7 mmol/L [facility] CO2 [Moles/Vol] 23 mmol/L 22 - 30 mmol/L [facility] Creatinine [Mass/Vol] 1.58 mg/dL High 0.73 - 1.22 mg/dL [facility] GFR/1.73 sq M.predicted among non-blacks MDRD (S/P/Bld) [Vol rate/Area] 46 mL/min/{1.73_m2} Low - PINF [facility] Comment on above: Estimated Glomerular Filtration Rate (eGFR) is calculated using the 2020 CKD-EPI creatinine equation. This equation utilizes serum creatinine, sex, and age as parameters. The creatinine assay has traceable calibration to isotope dilution-mass spectrometry. Refer to KDIGO guidelines for clinical interpretation. In patients with unstable renal function, e.g. those with acute kidney injury, the eGFR may not accurately reflect actual GFR. Glucose [Mass/Vol] 106 mg/dL High 74 - 99 mg/dL [facility] Comment on above: The [place] Diab[employer] Association (ADA) provides guidance for cutoff values for fasting glucose and random glucose. The ADA defines fasting as no caloric intake for at least 8 hours. Fasting plasma glucose results between 100 to 125 mg/dL indicate increased risk for diabetes (prediabetes). Fasting plasma glucose results greater than or equal to 126 mg/dL meet the criteria for diagnosis of diabetes. In the absence of unequivocal hyperglycemia, results should be confirmed by repeat testing. In a patient with classic symptoms of hyperglycemia or hyperglycemic crisis, random plasma glucose results greater than or equal to 200 mg/dL meet the criteria for diagnosis of diabetes. Reference: Standards of Medical Care in Diabetes 2016, [place] [employer]. Diabetes Care. 2016.39(Suppl 1). Interpretation and review of laboratory results Abnormal [facility] Potassium [Moles/Vol] 4.3 mmol/L 3.7 - 5.1 mmol/L [facility] Protein [Mass/Vol] 7.1 g/dL 6.3 - 8.0 g/dL [facility] Sodium [Moles/Vol] 142 mmol/L 136 - 144 mmol/L [facility] Urea nitrogen [Mass/Vol] 24 mg/dL 9 - 24 mg/dL [facility] MAGNESIUMon 12-15-2024 Magnesium [Mass/Vol] 2.3 mg/dL 1.7 - 2 .3 mg/dL [facility] Magnesium [Mass/Vol]on 12-15 Interpretation and review of laboratory results Normal [facility] No Panel Informationon 12-15 [facility] CNOVon 12-14-2024 CNOV Office Visit (CARD CHF EMPERATRIZ) DINO BLANDON ([id number]) 1950 Date Time Provider Department 12/14/24 2:30 PM MARILYN DOVE CARD CHF EMPERATRIZ During your visit today, we recorded the following information about you: Pulse Blood pressure Weight Height 51/minute 168/85 97.9 kg 1.638 m Marilyn Dove MD 12/16/2024 9:36 AM Signed [facility] SECTION OF HEART FAILURE and CARDIAC TRANSPLANT MEDICINE OUTPATIENT VISIT DATE December 14, 2024 OUTPATIENT VISIT TYPE Established Patient PRIMARY CARE PHYSICIAN: Santino Fermin [address] [place] [id number] CHIEF COMPLAINT: Fatigue Leg pain. NURSING INTAKE (Patient?s concerns and/or recent hospitalizations/ER visits): HF Nursing Assessment: Interim Hospitalizations and/or ER visits: Aug adult RSV and pneumonia Chest Pain: no Skipping or irregular heartbeats: yes Shortness of breath at rest: no Shortness of breath with activity: no Cough: no Waking up in the middle of the night gasping for air: no Lightheadedness or dizziness: yes, every now and then Feeling like you are going to pass out: no Actually passing out: no Poor energy level: yes Unintentional weight gain: no Unintentional weight loss: no Swelling in your legs,feet, abdomen: no Filling up quickly when you eat: yes, sometimes HISTORY OF PRESENT ILLNESS: 74 year old male with history of HTN, obesity Class II, diabetes mellitus type 2, CAD sp 04/09/2023: CABG x3 (RODARTE-LAD / SVG-RAMUS / SVG-RC); 04/09/2023: Large Right pneumothorax, s/p pigtail in CVICU; 04/10/2023: Recurrence of right PTX; 2nd pigtail in right anterior chest in CVICU. Shingles. The patient reports a significant decline in mobility over the past year due to leg pain and fatigue. He describes the pain as an aching sensation that starts in the legs and radiates to the hips, worsening throughout the day. The pain is more pronounced after walking and improves with rest. He denies any numbness but notes that his legs feel tired and weak. He has difficulty walking long distances and has reduced his physical activity significantly. He continues to climb stairs at work but does so slowly due to discomfort. A recent REEMA at rest was within normal limits. He also reports experiencing palpitations, describing them as skipped heartbeats occurring intermittently throughout the day, more frequently in the evening. He has noticed these palpitations for several months. He has not been monitoring his blood pressure at home recently. He expresses a desire to increase his physical activity but feels limited by his symptoms. PAST MEDICAL HISTORY Diagnosis Date Chronic kidney disease, stage III (moderate) (HCC) Essential hypertension Pneumothorax on right PAST SURGICAL HISTORY Procedure Laterality Date CABG (3) VEIN GRAFTS AND ARTERIAL GRAFT(S) 04/09/2023 (RODARTE-LAD / SVG-RAMUS / SVG-RC) SOCIAL HISTORY Social History Tobacco Use Smoking status: Never Smokeless tobacco: Never Vaping Use Vaping status: Never Used Substance Use Topics Alcohol use: Never Drug use: Never FAMILY HISTORY Problem Relation Age of Onset other (Myocardial infarction) Mother Diabetes Mother other (CABG) Brother Heart Failure Brother Heart disease Brother PPM amnd fabian replacement ALLERGIES: ALLERGIES No Known Allergies CURRENT MEDICATIONS: atorvastatin (LIPITOR) 40 mg tablet TAKE 1 TABLET BY MOUTH ONCE DAILY AT BEDTIME amLODIPine (NORVASC) 10 mg tablet Take 1 tablet by mouth once daily. carvedilol (COREG) 12.5 mg tablet Take 1 tablet in the morning and 1/2 tablet at night. (Patient taking differently: Take 1 tablet in the morning and 1 tablet at night.) glimepiride (AMARYL) 1 mg tablet Take 1 tablet by mouth daily with breakfast. blood sugar diagnostic (ACCU-CHEK GUIDE TEST STRIPS) test strip Use as instructed twice daily tamsulosin (FLOMAX) 0.4 mg Take 1 capsule by mouth daily at bedtime. (Patient taking differently: Take 0.4 mg by mouth one time a week.) acetaminophen (TYLENOL) 325 mg tablet Take 2 tablets by mouth every 6 hours as needed for pain. aspirin 81 mg chewable tablet 1 tablet by ORAL/FEEDING TUBE route once daily. Lancets (ACCU-CHEK SOFTCLIX LANCETS) lancets Use as instructed twice daily REVIEW OF SYSTEMS: ROS HEART FAILURE PATIENT ENTERED DATA: No data to display No data to display No data to display PHYSICAL EXAMINATION: BP 168/85 (BP Site: Right Arm) Pulse (!) 51 Ht 163.8 cm (5' 4.5) Wt 97.9 kg (215 lb 12.8 oz) SpO2 98% BMI 36.47 kg/m? General: Well appearing, in no acute distress. Skin: No clubbing, no cyanosis. Eyes: Extra ocular movements intact Oropharynx: Teeth in good repair. Neck: No jugular venous distention, no carotid bruits, carotids have a normal (more content not included)... Normal [facility] Comprehensive metabolic 2000 panelon 12-14-2024 Albumin [Mass/Vol] 4.3 g/dL Normal 3.9-4.9 [facility] Comment on above: Order Comment: Juwan link Type: BLOOD SPECIMEN Ordering Facility: [facility] Address: [address] [place] [address] Performed By: #### 2 4323-8, 00078-2 #### [facility] CLIA [id number] [address] [place] [address] [place] [address] [place] ALP [Catalytic activity/Vol] 79 U/L Normal 38-113 [facility] Comment on above: Order Comment: Speci men Type: BLOOD SPECIMEN Ordering Facility: [facility] Address: [address] [place], [place] [address] Performed By: #### 2 4323-8, #### [facility] CLIA [id number] [address] [place] [address] [place] ALT [Catalytic activity/Vol] 23 U/L Normal 10-54 [facility] Comment on above: Order Comment: Speci men Type: BLOOD SPECIMEN Ordering Facility: [facility] Address: [address] [place] [address] Performed By: #### 2 432-8, #### [facility] CLIA [id number] [address] [place] [address] [place] Anion gap [Moles/Vol] 13 mmol/L Normal 8-15 [facility] Comment on above: Order Comment: Speci men Type: BLOOD SPECIMEN Ordering Facility: [facility] Address: [address] [place] [address] Performed By: #### 2 432-8, #### [facility] CLIA [id number] [address] [place] [address] [place] AST [Catalytic activity/Vol] 26 U/L Normal 14-40 [facility] Comment on above: Order Comment: Speci men Type: BLOOD SPECIMEN Ordering Facility: [facility] Address: [address] [place], [place] [address] Performed By: #### 2 432-8, #### [facility] CLIA [id number] [address] [place], [place] [address] [place] Bilirubin [Mass/Vol] 0.5 mg/dL Normal 0.2-1.3 [facility] Comment on above: Order Comment: Speci men Type: BLOOD SPECIMEN Ordering Facility: [facility] Address: [address] [place], [place] [address] Performed By: #### 2 4323-8, #### [facility] CLIA [id number] [address] [place] [address] [place] Calcium [Mass/Vol] 9.9 mg/dL Normal 8.5-10.2 [facility] Comment on above: Order Comment: Speci men Type: BLOOD SPECIMEN Ordering Facility: [facility] Address: [address] [place], [place] [address] Performed By: #### 2 4323-8, #### [facility] CLIA [id number] [address] [place], [place] [address] [place] Chloride [Moles/Vol] 106 mmol/L Normal 98-107 [facility] Comment on above: Order Comment: Speci men Type: BLOOD SPECIMEN Ordering Facility: [facility] Address: [address] [place] [address] Performed By: #### 2 4328, #### [facility] CLIA [id number] [address] [place], [place] [address] [place] CO2 [Moles/Vol] 23 mmol/L Normal 22-30 [facility] Comment on above: Order Comment: Speci men Type: BLOOD SPECIMEN Ordering Facility: [facility] Address: [address] [place], [place] [address] Performed By: #### 2 432-8, #### [facility] CLIA [id number] [address] [place], [place] [address] [place] Creatinine [Mass/Vol] 1.58 mg/dL High 0.73-1.22 [facility] Comment on above: Order Comment: Speci men Type: BLOOD SPECIMEN Ordering Facility: [facility] Address: [address] [place], [place] [address] Performed By: #### 2 4323-8, #### [facility] CLIA [id number] [address] [place], [place] [address] [place] Creatinine and Glomerular filtration rate.predicted panel (S/P/Bld) 46 mL/min/1.73m??? Low >=60 [facility] Comment on above: Order Comment: Juwan link Type: BLOOD SPECIMEN Ordering Facility: [facility] Address: [address] [place] [address] Result Comment: Kim mated Glomerular Filtration Rate (eGFR) is calculated using the 2020 CKD-EPI creatinine equation. This equation utilizes serum creatinine, sex, and age as parameters. The creatinine assay has traceable calibration to isotope dilution-mass spectrometry. Refer to KDIGO guidelines for clinical interpretation. In patients with unstable renal function, e.g. those with acute kidney injury, the eGFR may not accurately reflect actual GFR. Performed By: #### 2 4323-8, #### [facility] CLIA [id number] [address] [place] [address] [place] Glucose [Mass/Vol] 106 mg/dL High 74-99 [facility] Comment on above: Order Comment: Juwan link Type: BLOOD SPECIMEN Ordering Facility: [facility] Address: [address] [place] [address] Result Comment: The [place] Diabetes Association (ADA) provides guidance for cutoff values for fasting glucose and random glucose. The ADA defines fasting as no caloric intake for at least 8 hours. Fasting plasma glucose results between 100 to 125 mg/dL indicate increased risk for diabetes (prediabetes). Fasting plasma glucose results greater than or equal to 126 mg/dL meet the criteria for diagnosis of diabetes. In the absence of unequivocal hyperglycemia, results should be confirmed by repeat testing. In a patient with classic symptoms of hyperglycemia or hyperglycemic crisis, random plasma glucose results greater than or equal to 200 mg/dL meet the criteria for diagnosis of diabetes. Reference: Standards of Medical Care in Diabetes 2016, [place] Diabetes Association. Diabetes Care. 2016.39(Suppl 1). Performed By: #### 2 4323-8, #### [facility] CLIA [id number] [address] [place] [address] [place] Potassium [Moles/Vol] 4.3 mmol/L Normal 3.7-5.1 [facility] Comment on above: Order Comment: Speci men Type: BLOOD SPECIMEN Ordering Facility: [facility] Address: [address] [place] [address] Performed By: #### 2 4323-8, #### [facility] CLIA [id number] [address] [place] [address] [place] Protein [Mass/Vol] 7.1 g/dL Normal 6.3-8.0 [facility] Comment on above: Order Comment: Speci men Type: BLOOD SPECIMEN Ordering Facility: [facility] Address: [address] [place] [address] Performed By: #### 2 4323-8, #### [facility] CLIA [id number] [address] [place] [address] [place] Sodium [Moles/Vol] 142 mmol/L Normal 136-144 [facility] Comment on above: Order Comment: Speci men Type: BLOOD SPECIMEN Ordering Facility: [facility] Address: [address] [place] [address] Performed By: #### 2 4323-8, #### [facility] CLIA [id number] [address] [place] [address] [place] Urea nitrogen [Mass/Vol] 24 mg/dL Normal 9-24 [facility] Comment on above: Order Comment: Speci men Type: BLOOD SPECIMEN Ordering Facility: [facility] Address: [address] [place] [address] Performed By: #### 2 4323-8, #### [facility] CLIA [id number] [address] [place], [place] [address] [place] Magnesium SerPl-mCncon 12-14 Magnesium [Mass/Vol] 2.3 mg/dL Normal 1.7-2.3 [facility] Comment on above: Order Comment: Speci men Type: BLOOD SPECIMEN Ordering Facility: [facility] Address: [address] [place] [address] Performed By: #### 2 4323-8, 45429-2 #### [facility] CLIA [id number] [address] [place] [address] [place] [address] [place]a 11-16-2024 CNPN Telephone ([facility]) DINO BLANDON ([id number]) 1950 M Date Time Provider Department 11/16/24 JUAQUIN AGRAWAL [facility] During your visit today, we recorded the following information about you: Maria Teresa Alejandra 11/16/2024 2:22 PM Signed Outside Medical Clearance scanned into [employer] Allergies As of Date: 11/16/2024 (No Known Allergies) Date Reviewed: 06/26/2024 Reviewed by: Constance Hernandez MA - Fully Assessed Reason for Visit: Received Outside Medical Records [[id number]] Cmt: Medical Clearance scanned Prescriptions as of 11/19/2024 - atorvastatin (LIPITOR) 40 mg tablet TAKE 1 TABLET BY MOUTH ONCE DAILY AT BEDTIME - amLODIPine (NORVASC) 10 mg tablet Take 1 tablet by mouth once daily. - carvedilol (COREG) 12.5 mg tablet Take 1 tablet in the morning and 1/2 tablet at night. - glimepiride (AMARYL) 1 mg tablet Take 1 tablet by mouth daily with breakfast. - blood sugar diagnostic (ACCU-CHEK GUIDE TEST STRIPS) test strip Use as instructed twice daily - tamsulosin (FLOMAX) 0.4 mg Take 1 capsule by mouth daily at bedtime. - acetaminophen (TYLENOL) 325 mg tablet Take 2 tablets by mouth every 6 hours as needed for pain. - aspirin 81 mg chewable tablet 1 tablet by ORAL/FEEDING TUBE route once daily. - Lancets (ACCU-CHEK SOFTCLIX LANCETS) lancets Use as instructed twice daily Problem List As Of Date 11/16/2024 Noted Resolved Angina pectoris (HCC) [I20.9] 04/02/2023 04/13/2023 Essential hypertension [I10] 04/02/2023 Hyperlipidemia [E78.5] 04/04/2023 Controlled type 2 diabetes mellitus without com*04/04/2023 SOLIS (acute kidney injury) (HCC) [N17.9] 04/04/2023 Obesity, Class II, BMI 35-39.9 [E66.812] 04/05/2023 Coronary artery disease involving [place] benavidez*04/05/2023 On mechanically assisted ventilation (HCC) [Z99*04/09/2023 04/13/2023 Postoperative pain [G89.18] 04/09/2023 Pneumothorax on right [J93.9] 04/09/2023 Stress hyperglycemia [R73.9] 04/09/2023 04/22/2023 Hypotension [I95.9] 04/09/2023 04/10/2023 Bilateral atelectasis [J98.11] 04/09/2023 Hypoxemia [R09.02] 04/09/2023 04/22/2023 PAF (paroxysmal atrial fibrillation) (HCC) [I48*04/11/2023 04/22/2023 CKD (chronic kidney disease) [N18.9] 04/13/2023 Summary [Z91.199] 04/15/2023 04/24/2023 Postoperative atrial fibrillation (HCC) [I97.89*04/15/2023 01/14/2024 Obesity, Class III, BMI >= 40 [E66.01] 04/15/2023 04/22/2023 Hyponatremia [E87.1] 04/20/2023 04/22/2023 Recurrent urinary tract infection [N39.0] 04/20/2023 Infection due to ESBL-producing Escherichia col*04/20/2023 Staphylococcus epidermidis bacteremia [R78.81, *04/21/2023 Surgical site infection [T81.49XA] 04/21/2023 Encounter for counseling for knisaxvna-py-ssual* Encounter Status:Closed by MARIA TERESA ALEJANDRA on 11/19/24 Normal [facility] Culture, Blood (WB)on 2024 CUB Blood cultures x2, from two different sites No growth in 5 days. Normal [facility] Comment on above: Performed By: #### L 501.080 #### [facility] [address] [place], [address] Basic Metabolic Profile (BMP )on 08-23-2024 BUN/CRE 15.0 RATIO Normal 10-20 [facility] Comment on above: Performed By: #### L 501.080 #### [facility] [address] [place], [address] CA,Total 9.2 mg/dL Normal 8.5-10.1 [facility] Comment on above: Performed By: #### L 501.080 #### [facility] [address] [place], [address] Chloride [Moles/Vol] 111 mmol/L High 98-107 [facility] Comment on above: Performed By: #### L 501.080 #### [facility] [address] [place], [address] CO2 [Moles/Vol] 23.0 mmol/L Normal 21.0-32.0 [facility] Comment on above: Performed By: #### L 501.080 #### [facility] [address] [place], [address] Creatinine [Mass/Vol] 1.07 mg/dL Normal 0.70-1.30 [facility] Comment on above: Result Comment: The validity of the calculated GFR GFRAA in patients over 70 years has not been determined. Clinical correlation is essential. Performed By: #### L 501.080 #### [facility] [address] [place], [address] ECRCL 66.52 ml/min Normal [facility] Comment on above: Performed By: #### L 501.080 #### [facility] [address] [place], [address] EST GFR - AA 87 mL/min Normal >60 [facility] Comment on above: Result Comment: Afri can [place] GFR Calc Performed By: #### L 501.080 #### [facility] [address] [place], [address] GAP 5 Normal 5-15 [facility] Comment on above: Performed By: #### L 501.080 #### [facility] [address] [place], [address] GFR/1.73 sq M.predicted among non-blacks MDRD (S/P/Bld) [Vol rate/Area] 72 mL/min/{1.73_m2} Normal >60 [facility] Comment on above: Result Comment: Non- GFR Calc Performed By: #### L 501.080 #### [facility] [address] [place], [address] Glucose [Mass/Vol] 120 mg/dL High 74-106 [facility] Comment on above: Result Comment: Fast ing Glucose result from 100 to 125 mg/dL suggests IMPAIRED HOMEOSTASIS per A.D.A. criteria. Performed By: #### L 501.080 #### [facility] [address] [place], [address] Potassium [Moles/Vol] 3.5 mmol/L Normal 3.5-5.1 [facility] Comment on above: Performed By: #### L 501.080 #### [facility] [address] [place], [address] Sodium [Moles/Vol] 139 mmol/L Normal 136-145 [facility] Comment on above: Performed By: #### L 501.080 #### [facility] [address] [place], [address] Urea nitrogen [Mass/Vol] 16 mg/dL Normal 7-18 [facility] Comment on above: Performed By: #### L 501.080 #### [facility] [address] [place], [address] Bedside Glucoseon 08-23-2024 FINGERSTICK GLU 109 mg/dL High 74-106 [facility] Comment on above: Result Comment: ELISHA MARCH OF PATIENT CARE PER NURSING PROTOCOL Performed By: #### L 501.080 #### [facility] [address] [place], [address] CBC W/Diff, Automatedon 08-05 Absolute Lymph 1.79 X10 3/uL Normal 0.83-4.51 [facility] Comment on above: Performed By: #### L 501.080 #### [facility] [address] [place], [address] Absolute Neut 9.1 X10 3/uL High 2.0-7.7 [facility] Comment on above: Performed By: #### L 501.080 #### [facility] [address] [place], [address] Basophils/100 WBC (Bld) 0.9 % Normal 0-1 [facility] Comment on above: Performed By: #### L 501.080 #### [facility] [address] [place], [address] Eosinophils/100 WBC (Bld) 3.1 % Normal 0-5 [facility] Comment on above: Performed By: #### L 501.080 #### [facility] [address] [place], [address] Erythrocyte distribution width (RBC) [Ratio] 14.3 % Normal 11.6-14.6 [facility] Comment on above: Performed By: #### L 501.080 #### [facility] [address] [place], [address] Hematocrit (Bld) [Volume fraction] 39.6 % Low 40-54 [facility] Comment on above: Performed By: #### L 501.080 #### [facility] [address] [place], [address] Hemoglobin (Bld) [Mass/Vol] 13.2 g/dL Normal 13.0-16.5 [facility] Comment on above: Performed By: #### L 501.080 #### [facility] [address] [place], [address] IG% 2.800 High 0.0-0.9 [facility] Comment on above: Result Comment: IG% - Immature Granulocytes (promyelocytes, myelocytes and metamyelocytes) > 1% indicates that a LEFT SHIFT is Present. Performed By: #### L 501.080 #### [facility] [address] [place], [address] Lymphocytes/100 WBC (Bld) 14.4 % Low 19-41 [facility] Comment on above: Performed By: #### L 501.080 #### [facility] [address] [place], [address] MCH (RBC) [Entitic mass] 29.2 pg Normal 27.0-32.0 [facility] Comment on above: Performed By: #### L 501.080 #### [facility] [address] [place], [address] MCHC (RBC) [Mass/Vol] 33.3 g/dL Normal 32-36 [facility] Comment on above: Performed By: #### L 501.080 #### [facility] [address] [place], [address] MCV (RBC) [Entitic vol] 87.6 fL Normal 80-94 [facility] Comment on above: Performed By: #### L 501.080 #### [facility] [address] [place], [address] Monocytes/100 WBC (Bld) 5.5 % Normal 0-10 [facility] Comment on above: Performed By: #### L 501.080 #### [facility] [address] [place], [address] Neutrophils/100 WBC (Bld) 73.3 % High 47-70 [facility] Comment on above: Performed By: #### L 501.080 #### [facility] [address] [place], [address] Nucleated RBC (Bld) [#/Vol] 0 10*3/uL Normal 0-5 [facility] Comment on above: Performed By: #### L 501.080 #### [facility] [address] [place], [address] Platelet mean volume (Bld) [Entitic vol] 8.6 fL Normal 6.2-12.0 [facility] Comment on above: Performed By: #### L 501.080 #### [facility] [address] [place], [address] Platelets (Bld) [#/Vol] 347 10*3/uL Normal 150-450 [facility] Comment on above: Performed By: #### L 501.080 #### [facility] [address] [place], [address] RBC (Bld) [#/Vol] 4.52 10*6/uL Low 4.6-6.2 [facility] Comment on above: Performed By: #### L 501.080 #### [facility] [address] [place], [address] RDW SD 45.8 fl High 35.1-43.9 [facility] Comment on above: Performed By: #### L 501.080 #### [facility] [address] [place], [address] WBC (Bld) [#/Vol] 12.4 10*3/uL High 4.4-11.0 [facility] Comment on above: Performed By: #### L 501.080 #### [facility] [address] [place], [address] Discharge Instructionon 08-05 Discharge Instruction [facility] Medical Records Department [address] [place] [address] Instructions for Home/Discharge Instructions 08/23/24 1128 MR#: [id number] Acct: [id number] Name: DINO BLANDON Rep #: [id number] : 1950 74 From: Leo Nuñez MD PCP: Dr. Santino Fermin, DO Status:ADM IN Discharge Instructions Diet Discharge Diet: No restrictions DC O2, CPAP, BIPAP needs RN Home O2 Qualification: Home O2 Qualification: Is the patient on home oxygen No 08/23/24 13:21 Home O2 Qualification: AT REST 1- Pulse Ox at rest 96 08/23/24 13:21 Home O2 Qualification: WITH AMBULATION 1- Pulse Ox with ambulation 93 08/23/24 13:21 1- Oxygen Flow Rate with 0 08/23/24 13:21 ambulation Home O2 Discharge instructions: No Dressing / Incision Discharge Activity: Return to Normal Activity Weight Bearing Status: Weight bearing as tolerated Dressing / Incision Call your doctor if you observe: Fever of 101 or Higher, Coldness, Increased Pain, Numbness or Tingling, Change in Color, Inability to urinate, Inability to have a bowel movement, Shortness of breath, Dizziness, Fainting spells, Swelling in the ankles, Chest pain, Prolonged hiccupping, Increased palpitations (irregular heartbeat) and Calf discomfort Follow Up Care When: IN 2 WEEKS Test Results: Test results from this visit will be discussed in further detail at your follow-up appointment, if applicable. Discharge Plan Admission Admit Date/Time: 08/20/24 18:07 Primary Reason for Your Visit: Pneumonia, metapneumovirus. Ear infection Attending Provider: Leo Nuñez Primary Care Provider: Santino Fermin Consulting Providers: Melissa Olivares Instructions Additional Instructions / Restrictions: Continue incentive spirometry and PEP for 1 week Discharge Orders/Prescriptions Prescriptions: New dextromethorphan-guai fenesin 60-1,200 mg tablet extended release 12 hr 1 tab PO BID 7 Days Qty: 14 0RF levofloxacin 500 mg tablet 500 mg PO DAILY 5 Days Qty: 5 0RF Continued amlodipine 10 MG tablet 10 mg PO DAILY Qty: 30 0RF carvedilol 12.5 mg tablet 12.5 mg PO Q12H glimepiride 1 mg tablet 1 mg PO DAILY atorvastatin 40 mg tablet 40 mg PO QHS Patient Comments: UNSURE OF STRENGTH BUT THINKS MAY BE 40 MH aspirin [Adult Aspirin Regimen] 81 mg tablet,delayed release (DR/EC) 81 mg PO DAILY Referrals / Follow Up: Davi Fan MD [Med Staff - Active Staff] - Within 2 Weeks Santino Fermin DO [Primary Care Provider] - Within 1 Week (Need referral to ENT doctor.) Disposition Disposition (needs filled in before D/C Order can be placed): Home, Self Care 08/23/24 1340 Leo Nuñez MD CC: Dr. Melissa Olivares DO; Dr. Santino Fermin DO Signed Normal [facility] Bedside Glucoseon 08-22-2024 FINGERSTICK GLU 123 mg/dL High 74-106 [facility] Comment on above: Result Comment: ELISHA GEMENT OF PATIENT CARE PER NURSING PROTOCOL Performed By: #### L 501.080 #### [facility] [address] [facility] [id number] (600 FINGERSTICK GLU 150 mg/dL High 74-106 [facility] Comment on above: Result Comment: ELISHA GEMENT OF PATIENT CARE PER NURSING PROTOCOL Performed By: #### L 501.080 #### [facility] [address] [facility] [address] FINGERSTICK GLU 98 mg/dL Normal 74-106 [facility] Comment on above: Result Comment: ELISHA GEMENT OF PATIENT CARE PER NURSING PROTOCOL Performed By: #### L 501.080 #### [facility] [address] [facility] [address] FINGERSTICK GLU 192 mg/dL High 74-106 [facility] Comment on above: Result Comment: ELISHA GEMENT OF PATIENT CARE PER NURSING PROTOCOL Performed By: #### L 501.080 #### [facility] [address] [place], [address] FINGERSTICK GLU 136 mg/dL High 74-106 [facility] Comment on above: Result Comment: ELISHA GEMENT OF PATIENT CARE PER NURSING PROTOCOL Performed By: #### L 501.080 #### [facility] [address] [place], [address] Bedside Glucoseon 08-21-2024 FINGERSTICK GLU 141 mg/dL High [address] [place] [address] Comment on above: Result Comment: ELISHA GEMENT OF PATIENT CARE PER NURSING PROTOCOL Performed By: #### L 501.080 #### [facility] [address] [place], [address] FINGERSTICK GLU 126 mg/dL High [address] [place] [address] Comment on above: Result Comment: ELISHA GEMENT OF PATIENT CARE PER NURSING PROTOCOL Performed By: #### L 501.080 #### [facility] [address] [place], [address] FINGERSTICK GLU 118 mg/dL High [facility]106 [facility] Comment on above: Result Comment: ELISHA GEMENT OF PATIENT CARE PER NURSING PROTOCOL Performed By: #### L 501.080 #### [facility] [address] [place], [address] FINGERSTICK GLU 145 mg/dL High [facility]106 [facility] Comment on above: Result Comment: ELISHA GEMENT OF PATIENT CARE PER NURSING PROTOCOL Performed By: #### L 501.080 #### [facility] [address] [place], [address] CBC W/Diff, Automatedon - PATH REV Reviewed Normal [facility] Comment on above: Result Comment: Neut rophilic leukocytosis. Clinical correlation necessary. Flaco Samaniego M.D. 08/21/24 AMENDED REPORT 08/21/24 1414 PATH REV previously reported as: December Performed By: #### L 500.2500, L501.5425, L100.0100 #### [facility] [address] [place], [address] Absolute Lymph 1.80 X10 3/uL Normal 0.83-4.51 [facility] Comment on above: Performed By: #### L 501.080 #### [facility] [address] [place], [address] Absolute Neut 13.3 X10 3/uL High 2.0-7.7 [facility] Comment on above: Performed By: #### L 501.080 #### [facility] [address] [place], [address] Basophils/100 WBC (Bld) 0.5 % Normal 0-1 [facility] Comment on above: Performed By: #### L 501.080 #### [facility] [address] [place], [address] Eosinophils/100 WBC (Bld) 1.7 % Normal 0-5 [facility] Comment on above: Performed By: #### L 501.080 #### [facility] [address] [place], [address] Erythrocyte distribution width (RBC) [Ratio] 13.8 % Normal 11.6-14.6 [facility] Comment on above: Performed By: #### L 501.080 #### [facility] [address] [place], [address] Hematocrit (Bld) [Volume fraction] 45.9 % Normal 40-54 [facility] Comment on above: Performed By: #### L 501.080 #### [facility] [address] [place], [address] Hemoglobin (Bld) [Mass/Vol] 15.4 g/dL Normal 13.0-16.5 [facility] Comment on above: Performed By: #### L 501.080 #### [facility] [address] [place], [address] IG% 1.000 High 0.0-0.9 [facility] Comment on above: Result Comment: IG% - Immature Granulocytes (promyelocytes, myelocytes and metamyelocytes) > 1% indicates that a LEFT SHIFT is Present. Performed By: #### L 501.080 #### [facility] [address] [place], [address] Lymphocytes/100 WBC (Bld) 10.8 % Low 19-41 [facility] Comment on above: Performed By: #### L 501.080 #### [facility] [address] [place], [address] MCH (RBC) [Entitic mass] 29.3 pg Normal 27.0-32.0 [facility] Comment on above: Performed By: #### L 501.080 #### [facility] [address] [place], [address] MCHC (RBC) [Mass/Vol] 33.6 g/dL Normal 32-36 [facility] Comment on above: Performed By: #### L 501.080 #### [facility] [address] [place], [address] MCV (RBC) [Entitic vol] 87.4 fL Normal 80-94 [facility] Comment on above: Performed By: #### L 501.080 #### [facility] [address] [place], [address] Monocytes/100 WBC (Bld) 6.1 % Normal 0-10 [facility] Comment on above: Performed By: #### L 501.080 #### [facility] [address] [place], [address] Neutrophils/100 WBC (Bld) 79.9 % High 47-70 [facility] Comment on above: Performed By: #### L 501.080 #### [facility] [address] [place], [address] Nucleated RBC (Bld) [#/Vol] 0 10*3/uL Normal 0-5 [facility] Comment on above: Performed By: #### L 501.080 #### [facility] [address] [place], [address] Platelet mean volume (Bld) [Entitic vol] 9.3 fL Normal 6.2-12.0 [facility] Comment on above: Performed By: #### L 501.080 #### [facility] [address] [place], [address] Platelets (Bld) [#/Vol] 268 10*3/uL Normal 150-450 [facility] Comment on above: Performed By: #### L 501.080 #### [facility] [address] [place], [address] RBC (Bld) [#/Vol] 5.25 10*6/uL Normal 4.6-6.2 [facility] Comment on above: Performed By: #### L 501.080 #### [facility] [address] [place], [address] RDW SD 44.5 fl High 35.1-43.9 [facility] Comment on above: Performed By: #### L 501.080 #### [facility] [address] [place], [address] WBC (Bld) [#/Vol] 16.7 10*3/uL High 4.4-11.0 [facility] Comment on above: Performed By: #### L 501.080 #### [facility] [address] [place], [address] Comprehensive Metabolic Prof ilon 08-21-2024 Albumin [Mass/Vol] 2.6 g/dL Low 3.2-5.0 [facility] Comment on above: Performed By: #### L 501.080 #### [facility] [address] [place], [address] Albumin/Globulin [Mass ratio] 0.6 {ratio} Low 0.9-2.4 [facility] Comment on above: Performed By: #### L 501.080 #### [facility] [address] [place], [address] ALK P 104 U/L Normal 45-117 [facility] Comment on above: Performed By: #### L 501.080 #### [facility] [address] [place], [address] ALT [Catalytic activity/Vol] 55 U/L Normal 16-61 [facility] Comment on above: Performed By: #### L 501.080 #### [facility] [address] [place], [address] AST [Catalytic activity/Vol] 65 U/L High 15-37 [facility] Comment on above: Result Comment: Mode rate Hemolysis, Result may be falsely increased. Performed By: #### L 501.080 #### [facility] [address] [place], [address] Bilirubin [Mass/Vol] 0.70 mg/dL Normal 0.20-1.00 [facility] Comment on above: Result Comment: For patients on eltrombopag therapy, use of Dimension [place] TBIL is not recommended. Performed By: #### L 501.080 #### [facility] [address] [place], [address] BUN/CRE 13.5 RATIO Normal 10-20 [facility] Comment on above: Performed By: #### L 501.080 #### [facility] [address] [place], [address] CA,Total 8.9 mg/dL Normal 8.5-10.1 [facility] Comment on above: Performed By: #### L 501.080 #### [facility] [address] [place], [address] Chloride [Moles/Vol] 108 mmol/L High 98-107 [facility] Comment on above: Performed By: #### L 501.080 #### [facility] [address] [place], [address] CO2 [Moles/Vol] 21.0 mmol/L Normal 21.0-32.0 [facility] Comment on above: Performed By: #### L 501.080 #### [facility] [address] [place], [address] Creatinine [Mass/Vol] 1.26 mg/dL Normal 0.70-1.30 [facility] Comment on above: Result Comment: The validity of the calculated GFR GFRAA in patients over 70 years has not been determined. Clinical correlation is essential. Performed By: #### L 501.080 #### [facility] [address] [place], [address] ECRCL 55.83 ml/min Normal [facility] Comment on above: Performed By: #### L 501.080 #### [facility] [address] [place], [address] EST GFR - AA 72 mL/min Normal >60 [facility] Comment on above: Result Comment: Afri can Mauritanian GFR Calc Performed By: #### L 501.080 #### [facility] [address] [place], [address] GAP 7 Normal 5-15 [facility] Comment on above: Performed By: #### L 501.080 #### [facility] [address] [place], [address] GFR/1.73 sq M.predicted among non-blacks MDRD (S/P/Bld) [Vol rate/Area] 60 mL/min/{1.73_m2} Normal >60 [facility] Comment on above: Result Comment: Non- GFR Calc Performed By: #### L 501.080 #### [facility] [address] [place], [address] Globulin (S) [Mass/Vol] 4.5 g/dL High 2.2-4.2 [facility] Comment on above: Performed By: #### L 501.080 #### [facility] [address] [place], [address] Glucose [Mass/Vol] 113 mg/dL High 74-106 [facility] Comment on above: Result Comment: Fast ing Glucose result from 100 to 125 mg/dL suggests IMPAIRED HOMEOSTASIS per A.D.A. criteria. Performed By: #### L 501.080 #### [facility] [address] [place], [address] Potassium [Moles/Vol] 4.1 mmol/L Normal 3.5-5.1 [facility] Comment on above: Result Comment: Mode rate Hemolysis, Result may be falsely increased. Performed By: #### L 501.080 #### [facility] [address] [place], [address] Sodium [Moles/Vol] 136 mmol/L Normal 136-145 [facility] Comment on above: Performed By: #### L 501.080 #### [facility] [address] [place], [address] T PROT 7.1 g/dL Normal 6.4-8.2 [facility] Comment on above: Performed By: #### L 501.080 #### [facility] [address] [place], [address] Urea nitrogen [Mass/Vol] 17 mg/dL Normal 7-18 [facility] Comment on above: Performed By: #### L 501.080 #### [facility] [address] [place], [address] Legionella Antigen Urineon 0 08-21-2024 LEGU Comments: Only Recommended for severe cases of pneumonia Only Recommended for severe cases of pneumonia URINE, CLEAN CATCH Legionella Antigen result interpretation: L pneumo Ag Ur Ql Negative Presumptive negative for Legionella pneumophila serogroup 1 antigen in urine, suggesting no recent or current infection. Legionella Ag, Urine Negative (See interpretation below) Normal [facility] Comment on above: Performed By: #### L 501.4020 #### [facility] [address] [place], [address] Magnesiumon 08-21-2024 Magnesium [Mass/Vol] 2.5 mg/dL Normal 1.6-2.6 [facility] Comment on above: Result Comment: Mode rate Hemolysis, Result may be falsely increased. Performed By: #### L 501.080 #### [facility] [address] [place], [address] Phosphoruson 08-21-2024 Phosphate [Mass/Vol] 2.4 mg/dL Low 2.5-4.9 [facility] Comment on above: Performed By: #### L 501.080 #### [facility] [address] [place], [address] RESPIRATORY PANEL MOLECULARo n 08-21-2024 RP PANEL Normal Reference Range = Not Detected Resp path DNA+RNA Pnl Resp ROSE+probe Nucleic acid amplification test method Resp path DNA+RNA Pnl Resp ROSE+probe CRITICAL VALUE CALLED TO ANA LOMELI 08/21/24 0224 Oleg Lemon. RESULTS READ BACK BY SAME. Resp path DNA+RNA Pnl Resp ROSE+probe Copy of report sent to Infection Control Printer [id number] 08/21/24 0226 [facility]. ADENOVIRUS Not Detected INFLUENZA A Not Detected INFLUENZA A (SUBTYPE H1) Not Detected INFLUENZA A (SUBTYPE H3) Not Detected INFLUENZA B Not Detected HUMAN METAPHNEUMO A Positive for HUMAN METAPHNEUMO VIRUS by NAAT technologyA PARAINFLUENZA 1 Not Detected PARAINFLUENZA 2 Not Detected PARAINFLUENZA 3 Not Detected PARAINFLUENZA 4 Not Detected RHINOVIRUS Not Detected RSV A Not Detected RSV B Not Detected HUMAN META Normal [facility] Comment on above: Performed By: #### L 501.4020 #### [facility] [address] [place], [address] Strep pneumoniae Antig(UR,CS F)on 08-21-2024 STPAG Comments: Only Recommended for severe cases of pneumonia Only Recommended for severe cases of pneumonia URINE, CLEAN CATCH URINE INTERPRETATION Strep pneumoniae Antig(UR,CSF) Strep pneumoniae Antig(UR,CSF) Negative Urine Presumptive negative for pneumococcal pneumonia, suggesting no current or recent pneumococcal infection. Infection due to S pneumoniae cannot be ruled out since the antigen present in the sample may be below the detection limit of the test. Strep pneumo Test Negative URINE (See interpretation below) Normal [facility] Comment on above: Performed By: #### L 501.4020 #### [facility] [address] [place], [address] Urine Cultureon 08-21-2024 URC Culture exhibits no growth. Normal [facility] Comment on above: Performed By: #### L 501.080 #### [facility] [address] [place], [place], [address] BNP,B-Type NATRIURETIC PEPTI Leigh 08-20-2024 Natriuretic peptide B (Bld) [Mass/Vol] 69.3 pg/mL Normal 0-100 [facility] Comment on above: Performed By: #### L 501.4020 #### [facility] [address] [place], [address] Basic Metabolic Profile (BMP )on 08-20-2024 BUN/CRE 12.7 RATIO Normal 10-20 [facility] Comment on above: Order Comment: 1 Y Performed By: #### L 500.2500, L501.5425, L100.0100 #### [facility] [address] [place], [address] CA,Total 8.6 mg/dL Normal 8.5-10.1 [facility] Comment on above: Order Comment: 1 Y Performed By: #### L 500.2500, L501.5425, L100.0100 #### [facility] [address] [place], [address] Chloride [Moles/Vol] 103 mmol/L Normal 98-107 [facility] Comment on above: Order Comment: 1 Y Performed By: #### L 500.2500, L501.5425, L100.0100 #### [facility] [address] [place], [address] CO2 [Moles/Vol] 23.0 mmol/L Normal 21.0-32.0 [facility] Comment on above: Order Comment: 1 Y Performed By: #### L 500.2500, L501.5425, L100.0100 #### [facility] [address] [place], [address] Creatinine [Mass/Vol] 1.50 mg/dL High 0.70-1.30 [facility] Comment on above: Order Comment: 1 Y Result Comment: The validity of the calculated GFR GFRAA in patients over 70 years has not been determined. Clinical correlation is essential. Performed By: #### L 500.2500, L501.5425, L100.0100 #### [facility] [address] [place], [address] EST GFR - AA 59 mL/min Low >60 [facility] Comment on above: Order Comment: 1 Y Result Comment: Afri can Mauritanian GFR Calc Performed By: #### L 500.2500, L501.5425, L100.0100 #### [facility] [address] [place], [address] GAP 8 Normal 5-15 [facility] Comment on above: Order Comment: 1 Y Performed By: #### L 500.2500, L501.5425, L100.0100 #### [facility] [address] [place], [address] GFR/1.73 sq M.predicted among non-blacks MDRD (S/P/Bld) [Vol rate/Area] 49 mL/min/{1.73_m2} Low >60 [facility] Comment on above: Order Comment: 1 Y Result Comment: Non- GFR Calc Performed By: #### L 500.2500, L501.5425, L100.0100 #### [facility] [address] [place], [address] Glucose [Mass/Vol] 124 mg/dL High 74-106 [facility] Comment on above: Order Comment: 1 Y Result Comment: Fast ing Glucose result from 100 to 125 mg/dL suggests IMPAIRED HOMEOSTASIS per A.D.A. criteria. Performed By: #### L 500.2500, L501.5425, L100.0100 #### [facility] [address] [place], [address] Potassium [Moles/Vol] 3.5 mmol/L Normal 3.5-5.1 [facility] Comment on above: Order Comment: 1 Y Performed By: #### L 500.2500, L501.5425, L100.0100 #### [facility] [address] [place], [address] Sodium [Moles/Vol] 133 mmol/L Low 136-145 [facility] Comment on above: Order Comment: 1 Y Performed By: #### L 500.2500, L501.5425, L100.0100 #### [facility] [address] [place], [address] Urea nitrogen [Mass/Vol] 19 mg/dL High 7-18 [facility] Comment on above: Order Comment: 1 Y Performed By: #### L 500.2500, L501.5425, L100.0100 #### [facility] [address] [place], [address] Chest 1 View (Portable)on Chest 1 View (Portable) [facility] Services [address] [place], [place] [address] Chest 1 View (Portable) MR#: [id number] Acct: [id number] Name: DINO BLANDON Rep #: [id number] : 1950 M 74 From: Shree zaragoza MD PCP: Dr. Santino Fermin, Status: REG ER Study: Chest 1 View (Portable) Date of Exam: 08/20/24 Exam# [id number] Ordering Dr: Ino Avalos DO [id number] STUDY: X-RAY CHEST REASON FOR EXAM: Male, 74 years old. Chest pain TECHNIQUE: Single AP portable view of the chest. COMPARISON: Comparison is made with prior study dated December 07, 2020. FINDINGS: EKG electrodes are seen. Patchy bibasilar infiltrates more prominent at the right lung base and superimposed mild degree of vascular congestion. There is no demonstrated pleural abnormality. Sternal cerclage wires and vascular clips are present from a prior sternotomy and coronary artery bypass graft procedure (CABG). Borderline cardiomegaly. Normal mediastinum and makenzie. Normal visualized pulmonary arteries. Normal visualized aortic arch and descending thoracic aorta. Normal visualized thoracic spine. Normal visualized ribs, clavicles, and shoulders. There is no demonstrated abnormality of the visualized soft tissue structures of the upper abdomen. RAD/Chest 1 View (Portable) IMPRESSION: Patchy bibasilar infiltrates superimposed on mild degree of vascular congestion. Electronically Signed: Shree Carrillo MD at 15:56 EST , CC: Dr. Santino Fermin DO; Dr. Ino Avalos DO Process Machine Operator: Signed Normal [facility] Emergency Department Summary on 08-20-2024 Emergency Department Summary [facility] Medical Records Department [address] [place] [address] Emergency Department Summary 08/20/24 MR#: [id number] Acct: [id number] Name: DINO BLANDON Rep #: [id number] : 1950 74 From: Ino Avalos DO PCP: Dr. Santino Fermin DO Status:ADM IN Location: [address] History of Present Illness Chief Complaint: [facility] Medical History (Updated 08/20/24 @ 18:[address] Melissa Olivares DO) Nonalcoholic hepatosteatosis HTN (hypertension) Obesity Diabetes mellitus, type 2 Hyperlipidemia CKD (chronic kidney disease) stage 3, GFR 30-59 ml/min Home Medications ???Medication ???Instructions ???Recorded ???Last Taken ???Type amlodipine 10 mg tablet 10 mg PO DAILY ##30 04/23/16 08/20/24 Rx aspirin 81 mg tablet,delayed 81 mg PO DAILY 08/20/24 08/20/24 History release (Adult Aspirin Regimen) atorvastatin 40 mg tablet 40 mg PO QHS 08/20/24 08/19/24 History carvedilol 12.5 mg tablet 12.5 mg PO Q12H 08/20/24 08/20/24 History glimepiride 1 mg tablet 1 mg PO DAILY 08/20/24 08/20/24 History Allergy/AdvReac Type Severity Reaction Status Date / Time No Known Allergies Allergy Verified 08/20/24 15:08 Family History Other Heart disease Social History (Updated 08/20/24 @ 18:[address] Melissa Olivares DO) household members: spouse housing: house current occupational status: retired Smoking Status: Never smoker alcohol intake: never substance use type: does not use EXAM Physical Exam Const Vital Signs: 08/20/24 15:07 08/20/24 15:07 08/20/24 15:10 Temperature 98.6 F 98.6 F Temperature Source Oral Oral Pulse Rate 70 70 70 Respiratory Rate 18 16 16 Respiratory Effort Respiratory Depth Respiratory Pattern Blood Pressure 144/81 H 144/81 H Blood Pressure Mean 102 102 Pulse Ox 94 88 92 Oxygen Delivery Method Nasal Cannula Nasal Cannula Nasal Cannula Oxygen Flow Rate (L/min) 2 3 08/20/24 15:42 08/20/24 15:50 08/20/24 16:10 Temperature 98.4 F Temperature Source Oral Pulse Rate 68 Respiratory Rate 34 H Respiratory Effort Short of Breath Accessory Muscle Use Respiratory Depth Shallow Respiratory Pattern Tachypnea Blood Pressure 154/82 H Blood Pressure Mean 106 Pulse Ox 95 Oxygen Delivery Method Nasal Cannula Nasal Cannula Nasal Cannula Oxygen Flow Rate (L/min) 3 6 6 08/20/24 17:00 08/20/24 18:00 Temperature 98.6 F 98.6 F Temperature Source Oral Oral Pulse Rate 72 74 Respiratory Rate 24 H 25 H Respiratory Effort Respiratory Depth Respiratory Pattern Blood Pressure 164/86 H 164/97 H Blood Pressure Mean 112 119 Pulse Ox 92 94 Oxygen Delivery Method Nasal Cannula Nasal Cannula Oxygen Flow Rate (L/min) 6 6 MDM MDM MDM Narrative Medical decision making narrative: HISTORY OF PRESENT ILLNESS: 74-year-old male presents with cold symptoms and cough. Notes he is currently being treated for pneumonia and ear infection. Notes increasing shortness of breath to the point where his pulse ox was in the 80s. Notes last Tylenol was at 2 PM. Notes he is been sick for the last couple of weeks. States he was worse today. Denies leg swelling. Denies chest pain but notes dyspnea on exertion. Denies any bleeding diathesis. The patient denies recent surgery in the last 4 weeks or immobilization in the last 3 days, denies previous diagnosis of DVT or PE, hemoptysis, unilateral leg swelling or malignancy with treatment the last 6 months or palliative. No estrogen use noted. Notes he is currently on Augmentin and azithromycin for pneumonia. States he is only had this for 1 day. States symptoms have not gotten any better. REVIEW OF SYSTEMS: Pertinent positives: Cough, shortness of breath Pertinent negatives: Vomiting, fever, chest pain PHYSICAL EXAM: Nursing triage notes reviewed, Vital signs reviewed Constitutional: please see mdm HENT: MMM Eyes: Pupils equal round and reactive to light, Extraocular muscles intact Neck: No stridor, no JVD, full neck ROM Lungs: Clear to auscultation, No wheezing or rales. No increased work of breathing, no conversational dyspnea, no accessory muscle use, no nasal flaring. No respiratory distress noted Heart: Regular rate and rhythm, No murmurs, No rubs and No gallops, 2+ distal pulses (radial, femoral, posterior tibial) in all extremities Abdomen: Soft, there is no tenderness, rigidity, rebound or guarding, no obvious peritoneal signs, no palpable pulsatile abdominal masses, no auscultated abdominal bruit : No CVAT Extremities: No edema Neuro: No new focal neurological deficits, cranial nerves II through XII intact, 5/5 strength in all present extremities. Intact sensation to light touch in (more content not included)... Normal [facility] H AND P Exam - Hospitaliston 08-20-2024 H&P Exam - Hospitalist [facility] Medical Records Department [address] [place] [address] H P Exam - Hospitalist 08/20/24 1807 MR#: [id number] Acct: [id number] Name: DINO BLANDON Rep #: [id number] : 1950 74 From: Melissa Olivares DO PCP: Dr. Santino Fermin, DO Status:REG ER Location: ED HPI - General General Date of Admission: 08/20/24 Date of Service: 08/20/24 Chief Complaint: Shortness of breath HPI Narrative DINO BLANDON, is a 74 M who presented to the emergency department at [facility] on 08/20/2024 with a chief complaint of shortness of breath. Patient states he has been having increasing shortness of breath over the last 48 hours but he has been sick for about 2 weeks. Stated it started out with some nasal congestion runny nose and a headache and has had intermittent myalgias, generalized weakness, decreased p.o. intake mild nausea with no vomiting or diarrhea and now has a productive cough. He was seen at an urgent care yesterday and started on antibiotics with Augmentin and azithromycin yesterday he has been compliant with medications however he was worsened to the point today where his pulse ox at home was in the 80s so his family brought him to the emergency department to be further evaluated. He is a never smoker and does not wear oxygen at baseline. Vital signs on presentation emergency department showed a temperature of 98.6, heart rate 70, 144/81, pulse ox was 88% on nasal cannula 2 L and his oxygen has been requiring up titration to the point where he is now currently on 6 L nasal cannula with sats in the mid 90s. CBC showed a white count of 19.1 with a left shift showing a 79.9% neutrophilia. Chemistry panel showed mild hyponatremia with a sodium of 133, stable BUN and creatinine elevation at 19 and 1.50 which is consistent with baseline. Glucose of 124. Troponin with 30 and 26 respectively and BNP was normal at 69.3. UA is not consistent with infection. EKG was without acute findings and chest x-ray showed patchy bibasilar infiltrates. On auscultation he had pretty significant rhonchi and intermittent wheeze in the right lung field more impressive at the base and the apex. Left side was relatively clear. In the emergency department he was given azithromycin and ceftriaxone given his significant oxygen requirement request for admission was made. [facility] Medical History (Updated 08/20/24 @ 18:[address] Melissa Olivares, DO) Nonalcoholic hepatosteatosis HTN (hypertension) Obesity Diabetes mellitus, type 2 Hyperlipidemia CKD (chronic kidney disease) stage 3, GFR 30-59 ml/min Home Medications ???Medication ???Instructions ???Recorded ???Last Taken ???Type amlodipine 10 mg tablet 10 mg PO DAILY ##30 04/23/16 08/20/24 Rx aspirin 81 mg tablet,delayed 81 mg PO DAILY 08/20/24 08/20/24 History release (Adult Aspirin Regimen) atorvastatin 40 mg tablet 40 mg PO QHS 08/20/24 08/19/24 History carvedilol 12.5 mg tablet 12.5 mg PO Q12H 08/20/24 08/20/24 History glimepiride 1 mg tablet 1 mg PO DAILY 08/20/24 08/20/24 History Allergy/AdvReac Type Severity Reaction Status Date / Time No Known Allergies Allergy Verified 08/20/24 15:08 Family History Other Heart disease Surgical History no surgical history no surgical history Social History (Updated 08/20/24 @ 18:[address] Melissa Olivares DO) household members: spouse housing: house current occupational status: retired Smoking Status: Never smoker alcohol intake: never substance use type: does not use ROS Constitutional Constitutional: Reports chills, fatigue, fever(s), malaise and weakness; Denies anorexia, change in weight, night sweats or other Eyes Eyes: Reports discharge from eye(s); Denies blurry vision, change in eye color, change in vision, double vision, erythema, eye pain, loss of vision or other ENT HEENT: Reports headache(s), nasal congestion, post nasal drip and sinus pressure; Denies abnormal hearing, dysphagia, ear pain, epistaxis, hearing loss, nasal discharge, sore throat or other Cardiovascular Cardiovascular: Reports dyspnea on exertion; Denies chest pain, claudication, edema, lightheadedness, orthopnea, palpitations, paroxysmal nocturnal dyspnea, rapid heart rate, syncope or other Respiratory/Chest Respiratory/Chest: Reports cough, dyspnea, excessive phlegm production, productive cough, shortness of breath at rest, shortness of breath with exertion and wheezing; Denies hemoptysis or other Gastrointestinal Gastrointestinal: Reports nausea; Denies abdominal pain, coffee ground emesis, constipation, diarrhea, dyspepsia, hematemesis, hematochezia, loose stools, melena, vomiting or other Genitourinary Genitourinary: Denies burning urination, difficulty urinating, dysuria, hematuria, nocturia, urinary frequency, (more content not included)... Normal [facility] L501.4020on 08-20-2024 TROPONIN-I HS 26 pg/mL Normal 3.0-78.0 [facility] Comment on above: Result Comment: Lyly childers Note: New Test Units and Gender Specific Reference Ranges. For more information see Policy Stat Procedure Gillett High Sensitivity Troponin (TNIH) and attachments. Performed By: #### L 501.4020 #### [facility] [address] [place], [address] L501.5425on 08-20-2024 TROPONIN-I HS 30 pg/mL Normal 3.0-78.0 [facility] Comment on above: Order Comment: 1 Y Result Comment: Lyly childers Note: New Test Units and Gender Specific Reference Ranges. For more information see Policy Stat Procedure Gillett High Sensitivity Troponin (TNIH) and attachments. Performed By: #### L 500.2500, L501.5425, L100.0100 #### [facility] [address] [place], [address] M100.678on 08-20-2024 M100.678 Pending SARS-CoV-2 (COVID 19) Negative INFLUENZA A Negative INFLUENZA B Negative RSV PCR Negative Normal [facility] Comment on above: Performed By: #### L [id number] #### [facility] [address] [place], [address] Urinalysis, Completeon 08-20 RBC 0-5 SEEN Normal 0-5 [facility] Comment on above: Order Comment: CLEAN CATCH Performed By: #### L 400.0001 #### [facility] [address] [place], [address] WBC 10-25 SEEN Normal 0-5 [facility] Comment on above: Order Comment: CLEAN CATCH Performed By: #### L 400.0001 #### [facility] [address] [place], [address] BACTERIA 1+ /hpf Normal None Seen [facility] Comment on above: Order Comment: CLEAN CATCH Performed By: #### L 400.0001 #### [facility] [address] [place], [address] EPI,SQUAMOUS 0-5 SEEN Normal 0-5 [facility] Comment on above: Order Comment: CLEAN CATCH Performed By: #### L 400.0001 #### [facility] [address] [place], [address] Mucus Ql (Urine sed) 0 SEEN Normal [facility] Comment on above: Order Comment: CLEAN CATCH Performed By: #### L 400.0001 #### [facility] [address] [place], [address] PVR LEG W/EXC ALVARADO VAS LABon 07-07-2024 PVR LEG W/EXC [facility] LAB Non-Invasive Vascular Laboratory [facility] Lower Extremity Arterial Physiology Study Bilateral/Complete Date of service/time: 07/07/2024 3:33:56 PM Name: MR. DINO BLANDON Date of : 1950 Age: 74 years Gender: M Medical History Tobacco: No Coronary disease: Yes CABG: Yes Hypertension: Yes Clinical Indication Pain in leg. TECHNIQUE -------- An arterial physiological examination was performed, including measurement of blood pressures using continuous wave Doppler and recording of plethysmographic with or without Doppler waveforms at the below-mentioned limb segments. FINDINGS -------- RIGHT SIDE AT REST Right Doppler Waveforms Dorsalis pedis: Multiphasic. Post tibial: Multiphasic. Right Pressures Brachial: 165 mmHg Low thigh: 203 mmHg Calf: 168 mmHg Ankle dorsalis pedis: 159 mmHg REEMA: 0.96 Ankle posterior tibial: 209 mmHg REEMA: 1.27 Right PVR Waveforms Low thigh: Normal. Calf: Normal. Ankle: Normal. LEFT SIDE AT REST Left Doppler Waveforms Dorsalis pedis: Multiphasic. Post tibial: Multiphasic. Left Pressures Brachial: 143 mmHg Low thigh: 192 mmHg Calf: 166 mmHg Ankle dorsalis pedis: 162 mmHg REEMA: 0.98 Ankle posterior tibial: 191 mmHg REEMA: 1.16 Left PVR Waveforms Low thigh: Normal. Calf: Normal. Ankle: Normal. POST EXERCISE Toe raises. Onset of claudication: 1 min 5 sec Maximal toe raise time: 4 min Exercise symptoms 1 min 5 sec: left leg pain 2 min 30 sec: left leg worsening 4 min 0 sec: test terminated; patient unable to perform toe raises with left leg anymore Reason test was terminated: worsening claudication. Post Exercise: Immediate Right Pressures and Waveform Brachial: 192 mmHg Ankle: 215 mmHg REEMA: 1.12 Left Pressures and Waveform Ankle: 214 mmHg REEMA: 1.11 Post Exercise: 5 minutes Right Pressures and Waveform Brachial: 168 mmHg Ankle: 211 mmHg REEMA: 1.26 Left Pressures and Waveform Ankle: 193 mmHg REEMA: 1.15 Post Exercise: 10 minutes Right Pressures and Waveform Brachial: 161 mmHg Ankle: 208 mmHg REEMA: 1.29 Left Pressures and Waveform Ankle: 188 mmHg REEMA: 1.17 IMPRESSION RIGHT SIDE Resting right ankle brachial index: 1.27 Post exercise right ankle brachial index: 1.12 Normal ankle brachial index at rest in the right leg. Right ankle: Normal at rest. LEFT SIDE Resting left ankle brachial index: 1.16 Post exercise left ankle brachial index: 1.11 Normal ankle brachial index at rest in the left leg. Left ankle: Normal at rest. Technologist: Ole Cuellar Ordering physician: MARILYN DOVE Interpreting physician: Martin Vieira MD Final CC [employer] [facility] Image : [id number] amicsSISUID See Link below for Image Normal [facility] CBC W/Diff, Automatedon 11-2 Absolute Lymph 1.94 X10 3/uL Normal 0.83-4.51 [facility] Comment on above: Performed By: #### L [id number] #### [facility] [address] [place], [place], [id number] Absolute Neut 8.5 X10 3/uL High 2.0-7.7 [facility] Comment on above: Performed By: #### L [id number] #### [facility] [address] [facility] [place], [place], [id number] ([phone]) Basophils/100 WBC (Bld) 0.5 % Normal 0-1 [facility] Comment on above: Performed By: #### L [id number] #### [facility] [address] [place], [address] Eosinophils/100 WBC (Bld) 4.4 % Normal 0-5 [facility] Comment on above: Performed By: #### L [id number] #### [facility] [address] [place], [address] Erythrocyte distribution width (RBC) [Ratio] 14.3 % Normal 11.6-14.6 [facility] Comment on above: Performed By: #### L [id number] #### [facility] [address] [place], [address] Hematocrit (Bld) [Volume fraction] 44.0 % Normal 40-54 [facility] Comment on above: Performed By: #### L [id number] #### [facility] [address] [place], [address] Hemoglobin (Bld) [Mass/Vol] 14.7 g/dL Normal 13.0-16.5 [facility] Comment on above: Performed By: #### L [id number] #### [facility] [address] [place], [address] IG% 0.600 Normal 0.0-0.9 [facility] Comment on above: Result Comment: IG% - Immature Granulocytes (promyelocytes, myelocytes and metamyelocytes) > 1% indicates that a LEFT SHIFT is Present. Performed By: #### L [id number] #### [facility] [address] [place], [address] Lymphocytes/100 WBC (Bld) 16.6 % Low 19-41 [facility] Comment on above: Performed By: #### L [id number] #### [facility] [address] [place], [address] MCH (RBC) [Entitic mass] 29.7 pg Normal 27.0-32.0 [facility] Comment on above: Performed By: #### L [id number] #### [facility] [address] [place], [address] MCHC (RBC) [Mass/Vol] 33.4 g/dL Normal 32-36 [facility] Comment on above: Performed By: #### L [id number] #### [facility] [address] [place], [address] MCV (RBC) [Entitic vol] 88.9 fL Normal 80-94 [facility] Comment on above: Performed By: #### L [id number] #### [facility] [address] [place], [address] Monocytes/100 WBC (Bld) 5.7 % Normal 0-10 [facility] Comment on above: Performed By: #### L [id number] #### [facility] [address] [place], [address] Neutrophils/100 WBC (Bld) 72.2 % High 47-70 [facility] Comment on above: Performed By: #### L [id number] #### [facility] [address] [place], [address] Nucleated RBC (Bld) [#/Vol] 0 10*3/uL Normal 0-5 [facility] Comment on above: Performed By: #### L [id number] #### [facility] [address] [place], [address] Platelet mean volume (Bld) [Entitic vol] 9.6 fL Normal 6.2-12.0 [facility] Comment on above: Performed By: #### L [id number] #### [facility] [address] [place], [address] Platelets (Bld) [#/Vol] 225 10*3/uL Normal 150-450 [facility] Comment on above: Performed By: #### L [id number] #### [facility] [address] [place], [address] RBC (Bld) [#/Vol] 4.95 10*6/uL Normal 4.6-6.2 [facility] Comment on above: Performed By: #### L [id number] #### [facility] [address] [place], [address] RDW SD 45.6 fl High 35.1-43.9 [facility] Comment on above: Performed By: #### L [id number] #### [facility] [address] [place], [address] WBC (Bld) [#/Vol] 11.7 10*3/uL High 4.4-11.0 [facility] Comment on above: Performed By: #### L [id number] #### [facility] [address] [place], [address] Comprehensive Metabolic Prof ilon 06-30-2024 Albumin [Mass/Vol] 3.6 g/dL Normal 3.2-5.0 [facility] Comment on above: Performed By: #### L [id number] #### [facility] [address] [place], [address] Albumin/Globulin [Mass ratio] 1.1 {ratio} Normal 0.9-2.4 [facility] Comment on above: Performed By: #### L [id number] #### [facility] [address] [place], [address] ALK P 70 U/L Normal 45-117 [facility] Comment on above: Performed By: #### L [id number] #### [facility] [address] [place], [address] ALT [Catalytic activity/Vol] 19 U/L Normal 16-61 [facility] Comment on above: Performed By: #### L [id number] #### [facility] [address] [place], [address] AST [Catalytic activity/Vol] 17 U/L Normal 15-37 [facility] Comment on above: Performed By: #### L [id number] #### [facility] [address] [place], [address] Bilirubin [Mass/Vol] 0.50 mg/dL Normal 0.20-1.00 [facility] Comment on above: Result Comment: For patients on eltrombopag therapy, use of Dimension Gillett TBIL is not recommended. Performed By: #### L 501.4020 #### [facility] [address] [place], [address] BUN/CRE 14.5 RATIO Normal 10-20 [facility] Comment on above: Performed By: #### L [id number] #### [facility] [address] [place], [address] CA,Total 9.0 mg/dL Normal 8.5-10.1 [facility] Comment on above: Performed By: #### L [id number] #### [facility] [address] [place], [address] Chloride [Moles/Vol] 110 mmol/L High 98-107 [facility] Comment on above: Performed By: #### L [id number] #### [facility] [address] [place], [address] CO2 [Moles/Vol] 24.0 mmol/L Normal 21.0-32.0 [facility] Comment on above: Performed By: #### L [id number] #### [facility] [address] [place], [address] Creatinine [Mass/Vol] 1.66 mg/dL High 0.70-1.30 [facility] Comment on above: Result Comment: The validity of the calculated GFR GFRAA in patients over 70 years has not been determined. Clinical correlation is essential. Performed By: #### L [id number] #### [facility] [address] [place], [address] EST GFR - AA 53 mL/min Low >60 [facility] Comment on above: Result Comment: Afri can Maur[place]ian GFR Calc Performed By: #### L [id number] #### [facility] [address] [place], [address] GAP 7 Normal 5-15 [facility] Comment on above: Performed By: #### L [id number] #### [facility] [address] [place], [address] GFR/1.73 sq M.predicted among non-blacks MDRD (S/P/Bld) [Vol rate/Area] 43 mL/min/{1.73_m2} Low >60 [facility] Comment on above: Result Comment: Non- GFR Calc Performed By: #### L [id number] #### [facility] [address] [place], [address] Globulin (S) [Mass/Vol] 3.2 g/dL Normal 2.2-4.2 [facility] Comment on above: Performed By: #### L [id number] #### [facility] [address] [place], [address] Glucose [Mass/Vol] 123 mg/dL High 74-106 [facility] Comment on above: Result Comment: Fast ing Glucose result from 100 to 125 mg/dL suggests IMPAIRED HOMEOSTASIS per A.D.A. criteria. Performed By: #### L [id number] #### [facility] [address] [place], [address] Potassium [Moles/Vol] 3.7 mmol/L Normal 3.5-5.1 [facility] Comment on above: Performed By: #### L [id number] #### [facility] [address] [place], [address] Sodium [Moles/Vol] 141 mmol/L Normal 136-145 [facility] Comment on above: Performed By: #### L [id number] #### [facility] [address] [place], [address] T PROT 6.8 g/dL Normal 6.4-8.2 [facility] Comment on above: Performed By: #### L [id number] #### [facility] [address] [place], [address] Urea nitrogen [Mass/Vol] 24 mg/dL High 7-18 [facility] Comment on above: Performed By: #### L [id number] #### [facility] [address] [place], [address] Hemoglobin A1con 06-30-2024 HbA1c (Bld) [Mass fraction] 5.8 % High 3.8-5.6 [facility] Comment on above: Result Comment: Norm al < 5.7 % Prediabetic 5.7 - 6.4 % Diabetic >or= 6.5 % Please note range changes. Performed By: #### L 501.080 #### [facility] [address] [place], [address] Lipid Profileon 06-30-2024 Cholesterol [Mass/Vol] 193 mg/dL Normal 200 [facility] Comment on above: Result Comment: <200 mg/dL Desirable 200-240 mg/dL Borderline >240 mg/dL High Risk Performed By: #### L [id number] #### [facility] [address] [place], [address] Cholesterol in HDL [Mass/Vol] 46 mg/dL Normal [facility] Comment on above: Result Comment: The drugs N-Acetylcysteine and Metamizole may falsely depress this assay. Reference Range HDL <40 mg/dL Low HDL Cholesterol HDL >or= 60 mg/dL High HDL Cholesterol Performed By: #### L [id number] #### [facility] [address] [place], [address] Cholesterol in LDL [Mass/Vol] 94 mg/dL Normal 0-130 [facility] Comment on above: Performed By: #### L [id number] #### [facility] [address] [place], [address] Cholesterol in VLDL [Mass/Vol] 53 mg/dL High 5-40 [facility] Comment on above: Performed By: #### L [id number] #### [facility] [address] [place], [address] Triglyceride [Mass/Vol] 267 mg/dL High [facility] Comment on above: Result Comment: The drugs N-Acetylcysteine and Metamizole may falsely depress this assay. Serum Triglycerides Reference Interval Normal <150 mg/dL Borderline high 150 - 199 mg/dL High 200 - 499 mg/dL Very High > or = 500 mg/dL Performed By: #### L [id number] #### [facility] [address] [place], [address] Microalb:Creat Ratio,Random URon 06-30-2024 Creatinine [Mass/Vol] 95.30 mg/dL Normal NO RANGE EST. [facility] Comment on above: Performed By: #### L [id number] #### [facility] [address] [place], [place], [id number] MALB:CRE 87.0 mg/g CRE High <30 mg/g CRE [facility] Comment on above: Performed By: #### L [id number] #### [facility] [address] [place], [address] MICROALBUMIN,UR 82.9 mg/L Normal NO RANGE EST. [facility] Comment on above: Performed By: #### L [id number] #### [facility] [address] [place], [address] PSA,Total- Diagnosticon 06-06 PSA, DIAGNOSTIC 7.78 ng/mL High 0.0-4.0 [facility] Comment on above: Result Comment: This test was performed using the TPSA assay method for the TruQC chemistry system. Values obtained with different assay methods cannot be used interchangably. When changing PSA assays in the course of monitoring a patient, additional sequential testing should be carried out to confirm baseline values. Performed By: #### L [id number] #### [facility] [address] [place], [address] CNOVon 06-26-2024 CNOV Office Visit ([facility] DINO BLANDON ([id number]) 1950 M Date Time Provider Department 06/26/24 2:15 PM MARILYN DOVE [facility] During your visit today, we recorded the following information about you: Pulse Blood pressure Weight Height 56/minute 136/85 95.7 kg 1.638 m Marilyn Dove MD 06/28/2024 8:40 PM Signed Heart and Vascular [facility] SECTION OF HEART FAILURE and CARDIAC TRANSPLANT MEDICINE OUTPATIENT VISIT DATE June 26, 2024 OUTPATIENT VISIT TYPE Established Patient PRIMARY CARE PHYSICIAN: Santino Fermin [address] [place] [address] CHIEF COMPLAINT: Exertional leg pain NURSING INTAKE (Patient?s concerns and/or recent hospitalizations/ER visits): HF Nursing Assessment: Interim Hospitalizations and/or ER visits:no Chest Pain: no Skipping or irregular heartbeats: yes Shortness of breath at rest: no Shortness of breath with activity: no Cough: no Waking up in the middle of the night gasping for air: no Lightheadedness or dizziness: yes, when get up in the morning Feeling like you are going to pass out: no Actually passing out: no Poor energy level: yes, sometimes Unintentional weight gain: no Unintentional weight loss: no Swelling in your legs,feet, abdomen: no Filling up quickly when you eat: no HISTORY OF PRESENT ILLNESS: 74 year old male with history of HTN, obesity Class II, diabetes mellitus type 2, CAD sp 04/09/2023: CABG x3 (RODARTE-LAD / SVG-RAMUS / SVG-RC); 04/09/2023: Large Right pneumothorax, s/p pigtail in CVICU; 04/10/2023: Recurrence of right PTX; 2nd pigtail in right anterior chest in CVICU. Shingles. His walking is limited because of leg pain. Sleeping for 4 hours and then he is awake. No issues with leg swelling PAST MEDICAL HISTORY Diagnosis Date Chronic kidney disease, stage III (moderate) (HCC) Essential hypertension Pneumothorax on right PAST SURGICAL HISTORY Procedure Laterality Date CABG (3) VEIN GRAFTS AND ARTERIAL GRAFT(S) 04/09/2023 (RODARTE-LAD / SVG-RAMUS / SVG-RC) SOCIAL HISTORY Social History Tobacco Use Smoking status: Never Smokeless tobacco: Never Vaping Use Vaping status: Never Used Substance Use Topics Alcohol use: Never Drug use: Never FAMILY HISTORY Problem Relation Age of Onset other (Myocardial infarction) Mother Diabetes Mother other (CABG) Brother Heart Failure Brother Heart disease Brother PPM amnd fabian replacement ALLERGIES: ALLERGIES No Known Allergies CURRENT MEDICATIONS: carvedilol (COREG) 12.5 mg tablet Take 1 tablet in the morning and 1/2 tablet at night. (Patient taking differently: Take 1 tablet in the morning and 1 tablet at night.) glimepiride (AMARYL) 1 mg tablet Take 1 tablet by mouth daily with breakfast. amLODIPine (NORVASC) 5 mg tablet Take 2 tablets by mouth once daily. blood sugar diagnostic (ACCU-CHEK GUIDE TEST STRIPS) test strip Use as instructed twice daily tamsulosin (FLOMAX) 0.4 mg Take 1 capsule by mouth daily at bedtime. (Patient taking differently: Take 0.4 mg by mouth one time a week.) acetaminophen (TYLENOL) 325 mg tablet Take 2 tablets by mouth every 6 hours as needed for pain. aspirin 81 mg chewable tablet 1 tablet by ORAL/FEEDING TUBE route once daily. Lancets (ACCU-CHEK SOFTCLIX LANCETS) lancets Use as instructed twice daily atorvastatin (LIPITOR) 40 mg tablet Take 1 tablet by mouth daily at bedtime. (Patient not taking: Reported on 12/31/2023) REVIEW OF SYSTEMS: ROS HEART FAILURE PATIENT ENTERED DATA: No data to display No data to display No data to display PHYSICAL EXAMINATION: BP 136/85 (BP Site: Left Arm) Pulse (!) 56 Ht 163.8 cm (5' 4.5) Wt 95.7 kg (210 lb 14.4 oz) SpO2 98% BMI 35.64 kg/m? General: Well appearing, in no acute distress. Skin: No clubbing, no cyanosis. Eyes: Extra ocular movements intact Oropharynx: Teeth in good repair. Neck: No jugular venous distention, no carotid bruits, carotids have a normal upstroke, no palpable thyromegaly. Lungs: Clear to auscultation bilaterally, no wheezing or rhonchi. Heart: Regular rhythm, PMI not displaced, S1, S2 normal, no S3, no S4, no heaves, no rub and no murmur. Abdomen: Soft, nontender, bowel sounds normal, no palpable organomegaly, no bruits. Extremities: No peripheral edema . Grade 2/4 distal pulses bilaterally. Neuro: Oriented to person, place and time, alert, cooperative, gait coordinated. CARDIOVASCULAR MEDICINE TESTING: There were no tests performed for review. Last ECHO Result Conclusion ECHO Collected: 12/31/2023 10:00 AM (Final result) Impression: CONCLUSIONS: - Exam indication: s/p CABG (2022) - The left ventricle is normal in size. There is mild left ventricular hypertrophy. Left ventricular systolic function is normal. EF = 57 ? 5% ( (more content not included)... Normal [facility] [place] 06-26-2024 KEYURN Telephone ([facility]) BARBERDINO Ander ([id number]) 1950 M Date Time Provider Department 06/26/24 MARILYN DOVE MAI During your visit today, we recorded the following information about you: Mayra Coffman 06/26/2024 4:02 PM Signed Please call [facility] pharmacy re: dosage of Amlodipine dosage. [phone]. Thank you, Tasha Edward RN 06/29/2024 9:08 AM Signed Called [facility] pharmacy and gave updated information. Marilyn Dove MD You3 days ago He was taking amlodipine 5mg two tablets. I sent a prescription of 10mg 1 tablet per day. MD Tasha Wallace RN June 29, 2024 9:05 AM Allergies As of Date: 06/26/2024 (No Known Allergies) Date Reviewed: 06/26/2024 Reviewed by: Constance Hernandez MA - Fully Assessed Reason for Visit: Follow Up [171] Prescriptions as of 06/29/2024 - amLODIPine (NORVASC) 10 mg tablet Take 1 tablet by mouth once daily. - carvedilol (COREG) 12.5 mg tablet Take 1 tablet in the morning and 1/2 tablet at night. - atorvastatin (LIPITOR) 40 mg tablet Take 1 tablet by mouth daily at bedtime. - glimepiride (AMARYL) 1 mg tablet Take 1 tablet by mouth daily with breakfast. - blood sugar diagnostic (ACCU-CHEK GUIDE TEST STRIPS) test strip Use as instructed twice daily - tamsulosin (FLOMAX) 0.4 mg Take 1 capsule by mouth daily at bedtime. - acetaminophen (TYLENOL) 325 mg tablet Take 2 tablets by mouth every 6 hours as needed for pain. - aspirin 81 mg chewable tablet 1 tablet by ORAL/FEEDING TUBE route once daily. - Lancets (ACCU-CHEK SOFTCLIX LANCETS) lancets Use as instructed twice daily Problem List As Of Date 06/26/2024 Noted Resolved Angina pectoris (HCC) [I20.9] 04/02/2023 04/13/2023 Essential hypertension [I10] 04/02/2023 Hyperlipidemia [E78.5] 04/04/2023 Controlled type 2 diabetes mellitus without com*04/04/2023 SOLIS (acute kidney injury) ([facility]) [N17.9] 04/04/2023 Obesity, Class II, BMI 35-39.9 [E66.812] 04/05/2023 Coronary artery disease involving [place] benavidez*04/05/2023 On mechanically assisted ventilation (HCC) [Z99*04/09/2023 04/13/2023 Postoperative pain [G89.18] 04/09/2023 Pneumothorax on right [J93.9] 04/09/2023 Stress hyperglycemia [R73.9] 04/09/2023 04/22/2023 Hypotension [I95.9] 04/09/2023 04/10/2023 Bilateral atelectasis [J98.11] 04/09/2023 Hypoxemia [R09.02] 04/09/2023 04/22/2023 PAF (paroxysmal atrial fibrillation) ([facility]) [I48*04/11/2023 04/22/2023 CKD (chronic kidney disease) [N18.9] 04/13/2023 Summary [Z91.199] 04/15/2023 04/24/2023 Postoperative atrial fibrillation ([facility]) [I97.89*04/15/2023 01/14/2024 Obesity, Class III, BMI >= 40 [E66.01] 04/15/2023 04/22/2023 Hyponatremia [E87.1] 04/20/2023 04/22/2023 Recurrent urinary tract infection [N39.0] 04/20/2023 Infection due to ESBL-producing Escherichia col*04/20/2023 Staphylococcus epidermidis bacteremia [R78.81, *04/21/2023 Surgical site infection [T81.49XA] 04/21/2023 Encounter for counseling for cfboymnyi-av-vaaui* Encounter Status:Closed by TASHA BRUNO on 06/29/24 Normal [facility] HSV+VZV DNA ROSE+probe Ql (Un sp spec)Ordered By: Olya Martinez on 01-14-2024 HSV 1 DNA ROSE+probe Ql (Unsp spec) Not detected Not Detected [facility] HSV 2 DNA ROSE+probe Ql (Unsp spec) Not detected Not Detected [facility] Interpretation and review of laboratory results Abnormal [facility] VZV DNA ROSE+probe Ql (Unsp spec) Detected Abnormal Not Detected [facility] CNOVon 01-13-2024 CNOV Office Visit (INFDMN ) DINO BLANDON ([id number]) 1950 M Date Time Provider Department 01/13/24 10:30 AM GATO ZALDIVAR INF[facility] During your visit today, we recorded the following information about you: Temperature Pulse Respiration Blood pressure 97.6 degrees 49/minute 18/minute 147/84 Weight 97.2 kg Gato Zaldivar MD 01/14/2024 8:20 AM Signed INFECTIOUS DISEASE - OUTPATIENT INITIAL CONSULT Subjective Source of information: Patient Dino Blandon Obtained history from other person Current [facility] records reviewed and summarized below Prior [facility] records reviewed and summarized below Provider requesting the consultation: Dr Marilyn Dove Cardiology Chief Complaint / Reason for Consult: Shingles left thoracoabdominal HPI: Dino Blandon is a 73 year old man from [place] [address] , works in his own electric company, 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 October 2023 developed a rash on right leg donor site pruritic desquamative and couple patches on upper back, very pruritic. PCP order topical steroids with some improvement 12/30/23 ED for left flank pain radiated to groin area 05/14, no dysuria or hematuria, no nausea, vomiting or diarrhea, and rash worsening , CT abdomen clear lung bases, no hydronephrosis or stones, , moderated prostate enlargement and chronic bladder outflow, diffuse degenerative spine. No leukocytosis WBC 8.2, UA LE 500, nitrates negative, RBC 0, WBC 10-25. He was discharge with unspecific abdominal pain and rash with prescription dexamethasone 6mg daily for 6 days and percocet for 3 days 12/31/23 Cardiology follow up was diagnosed shingles left side rash blistering extending anterior abdomen on T11 dermatoma and started valtrex 1g BID base on creatinine clearance ~40. Heart failure stage A, CA, ASA no statin due intolerance, saphenectomy wound no healed, uncontrol hypertension, Diabetes mellitus, CKD3 and shingles. He was refer to ID clinic. Creatinine 1.73 01/13/24 repots painful rash improved control with tylenol but no relief, rash on left side improving started scabbing completed Valtrex 01/06/24, rash on leg and upper back are no painful but very pruritic. No fever or chills. He is worried to be around his daughter and daughter in law that ae and close to delivery Additional relevant medical history obesity BMI 36, diabetes mellitus, CKD3b, hypertension s/p 04/09/23 CABG 3 complicated with Methicillin resistants Staphylococcus epidermidis bacteremia, infected donor venous graft MSA, enterobacter cloacae , recurrent UTI E coli ESBL he was treated with ciprofloxacin and vancomycin, and SOLIS Allergies: ALLERGIES No Known Allergies Current Medications: Current Outpatient Medications Medication Sig carvedilol (COREG) 12.5 mg tablet Take 1 tablet in the morning and 1/2 tablet at night. atorvastatin (LIPITOR) 40 mg tablet Take 1 tablet by mouth daily at bedtime. (Patient not taking: Reported on 12/31/2023) glimepiride (AMARYL) 1 mg tablet Take 1 tablet by mouth daily with breakfast. amLODIPine (NORVASC) 5 mg tablet Take 2 tablets by mouth once daily. blood sugar diagnostic (ACCU-CHEK GUIDE TEST STRIPS) test strip Use as instructed twice daily tamsulosin (FLOMAX) 0.4 mg Take 1 capsule by mouth daily at bedtime. (Patient taking differently: Take 0.4 mg by mouth every other day.) acetaminophen (TYLENOL) 325 mg tablet Take 2 tablets by mouth every 6 hours as needed for pain. aspirin 81 mg chewable tablet 1 tablet by ORAL/FEEDING TUBE route once daily. Lancets (ACCU-CHEK SOFTCLIX LANCETS) lancets Use as instructed twice daily No current facility-administered medications for this visit. Past Medical History: PAST MEDICAL HISTORY Diagnosis Date Chronic kidney disease, stage III (moderate) (HCC) Essential hypertension Pneumothorax on right Past Surgical History: PAST SURGICAL HISTORY Procedure Laterality Date CABG (3) VEIN GRAFTS AND ARTERIAL GRAFT(S) 04/09/2023 (RODARTE-LAD / SVG-RAMUS / SVG-RC) Social History / Exposure History: Social History Tobacco Use Smoking status: Never Smokeless tobacco: Never Vaping Use Vaping Use: Never used Substance Use Topics Alcohol use: Never Drug use: Never Exposure History No recent travel, no sick contacts Family History: FAMILY HISTORY Problem Relation Age of Onset other (Myocardial infarction) Mother Diabetes Mother other (CABG) Brother Heart Failure Brother Heart disease Brother PPM amnd fabian replacement Not pertinent to this patient's acute infectious process No heritable diseases that predispose to infection in family. Review of Systems: REVIEW OF SYSTEMS (14 systems): System POSITIVE Negative Constitutional [] fever [] chills [] night sweat (more content not included)... Normal [facility] HSV+VZV DNA ROSE+probe Ql (Un sp spec)on 01-13-2024 HSV 1 DNA ROSE+probe Ql (Unsp spec) Not detected Normal Not Detected [facility] Comment on above: Order Comment: Speci men Type: SWAB Ordering Facility: [facility] Address: [address] [place] [address] Performed By: #### 3 3027-4 #### [facility] CLIA [id number] [address] [place] [address] [place] HSV 2 DNA ROSE+probe Ql (Unsp spec) Not detected Normal Not Detected [facility] Comment on above: Order Comment: Speci men Type: SWAB Ordering Facility: [facility] Address: [address] [place] [address] Performed By: #### 3 3027-4 #### [facility] CLIA [id number] [address] [place] [address] [place] VZV DNA ROSE+probe Ql (Unsp spec) Detected Abnormal Not Detected [facility] Comment on above: Order Comment: Roesi men Type: SWAB Ordering Facility: [facility] Address: [address] [place] [address] Performed By: #### 3 3027-4 #### [facility] CLIA [id number] [address] [facility] [place] [address] [place] STAPHYLOCOCCUS AUREUS AND MR SA SCREEN, PCR, NASALon 01-13-2024 S. aureus and MRSA panel ROSE+probe (Nose) Not detected Normal Not Detected [facility] Comment on above: Order Comment: Speci men Type: SWAB Ordering Facility: [facility] Address: [address] [place] [address] Performed By: #### S APCR #### [facility] CLIA [id number] [address] [place], [place] [address] [place] [address] [place] STAPHYLOCOCCUS AUREUS & MRSA SCREEN, PCR, NASALon 01-13-2024 Interpretation and review of laboratory results Normal [facility] S. aureus and MRSA panel ROSE+probe (Nose) Not detected Not Detected [facility] CBC W Auto Differential pane l (Bld)on 01-01-2024 Basophils (Bld) [#/Vol] 0.04 10*3/uL [facility] Basophils/100 WBC (Bld) 0.6 % C [facility] Differential cell count method Nom (Bld) Auto [facility] Eosinophils (Bld) [#/Vol] 0.54 10*3/uL High [facility] Eosinophils/100 WBC (Bld) 8.1 % [facility] Erythrocyte distribution width (RBC) [Ratio] 14.6 % 11.5 - 15.0 % [facility] Hematocrit (Bld) [Volume fraction] 43.4 % 39.0 - 51.0 % [facility] Hemoglobin (Bld) [Mass/Vol] 14.1 g/dL 13.0 - 17.0 g/dL [facility] Immature granulocytes (Bld) [#/Vol] 0.03 10*3/uL [facility] Immature granulocytes/100 WBC (Bld) 0.4 % [facility] Interpretation and review of laboratory results Abnormal [facility] Lymphocytes (Bld) [#/Vol] 1.17 10*3/uL [facility] Lymphocytes/100 WBC (Bld) 17.5 % [facility] MCH (RBC) [Entitic mass] 28.3 pg 26.0 - 34.0 pg [facility] MCHC (RBC) [Mass/Vol] 32.5 g/dL 30.5 - 36.0 g/dL [facility] MCV (RBC) [Entitic vol] 87.0 fL 80.0 - 100.0 fL [facility] Monocytes (Bld) [#/Vol] 0.60 10*3/uL [facility] Monocytes/100 WBC (Bld) 9.0 % C [facility] Neutrophils (Bld) [#/Vol] 4.30 10*3/uL [facility] Neutrophils/100 WBC (Bld) 64.4 % [facility] Nucleated RBC (Bld) [#/Vol] NINF [facility] Nucleated RBC/100 WBC (Bld) [Ratio] 0.0 % /100 WBC [facility] Platelet mean volume (Bld) [Entitic vol] 8.6 fL Low 9.0 - 12.7 fL [facility] Platelets (Bld) [#/Vol] 170 10*3/uL [facility] RBC (Bld) [#/Vol] 4.99 10*6/uL 4.20 - 6.0 0 m/uL [facility] WBC (Bld) [#/Vol] 6.68 10*3/uL [facility] Comprehensive metabolic 2000 panelOrdered By: Namrata Landeros on 01-01-2024 Albumin [Mass/Vol] 4.0 g/dL 3.9 - 4.9 g/dL [facility] ALP [Catalytic activity/Vol] 72 U/L 38 - 113 U/L [facility] ALT [Catalytic activity/Vol] 20 U/L 10 - 54 U/L [facility] Anion gap [Moles/Vol] 9 mmol/L 9 - 18 mmol/L [facility] AST [Catalytic activity/Vol] 22 U/L 14 - 40 U/L [facility] Bilirubin [Mass/Vol] 0.2 mg/dL 0.2 - 1 .3 mg/dL [facility] Calcium [Mass/Vol] 9.4 mg/dL 8.5 - 10. 2 mg/dL [facility] Chloride [Moles/Vol] 105 mmol/L 97 - 10 5 mmol/L [facility] CO2 [Moles/Vol] 25 mmol/L 22 - 30 mmol/L [facility] Creatinine [Mass/Vol] 1.43 mg/dL High 0.73 - 1.22 mg/dL [facility] GFR/1.73 sq M.predicted among non-blacks MDRD (S/P/Bld) [Vol rate/Area] 52 mL/min/{1.73_m2} Low - PINF [facility] Comment on above: Estimated Glomerular Filtration Rate (eGFR) is calculated using the 2020 CKD-EPI creatinine equation. This equation utilizes serum creatinine, sex, and age as parameters. The creatinine assay has traceable calibration to isotope dilution-mass spectrometry. Refer to KDIGO guidelines for clinical interpretation. In patients with unstable renal function, e.g. those with acute kidney injury, the eGFR may not accurately reflect actual GFR. Glucose [Mass/Vol] 132 mg/dL High 74 - 99 mg/dL [facility] Comment on above: The [place] Diab[employer] [place] Association (ADA) provides guidance for cutoff values for fasting glucose and random glucose. The ADA defines fasting as no caloric intake for at least 8 hours. Fasting plasma glucose results between 100 to 125 mg/dL indicate increased risk for diabetes (prediabetes). Fasting plasma glucose results greater than or equal to 126 mg/dL meet the criteria for diagnosis of diabetes. In the absence of unequivocal hyperglycemia, results should be confirmed by repeat testing. In a patient with classic symptoms of hyperglycemia or hyperglycemic crisis, random plasma glucose results greater than or equal to 200 mg/dL meet the criteria for diagnosis of diabetes. Reference: Standards of Medical Care in Diabetes 2016, [place] [employer] Association. Diabetes Care. 2016.39(Suppl 1). Interpretation and review of laboratory results Abnormal [facility] Potassium [Moles/Vol] 3.8 mmol/L 3.7 - 5.1 mmol/L [facility] Protein [Mass/Vol] 6.6 g/dL 6.3 - 8.0 g/dL [facility] Sodium [Moles/Vol] 139 mmol/L 136 - 144 mmol/L [facility] Urea nitrogen [Mass/Vol] 22 mg/dL 9 - 24 mg/dL [facility] Culture, urineOrdered By: Ra ben Corado on 10-08-2023 Bacteria identified Cx Nom (U) Culture exhibits no growth. [facility] No Panel InformationOrdered By: Jenni Corado on 10-08-2023 Prostate Specific Antigen Screen 10.70 ng/mL 0.00-4.00 [facility] Comment on above: This test was perfor med using the TPSA assay method for [employer] chemistry system. Values obtained with differentassay methods cannot be used interchangably.When changing PSA assays in the course of monitoring apatient, additional sequential testing should be carriedout to confirm baseline values. CNOVon 09-27-2023 CNOV Office Visit (CPRMER ) DINO BLANDON ([id number]) 1950 M Date Time Provider Department 09/27/23 11:00 AM CARDIAC VAS EXERCISE [facility] During your visit today, we recorded the following information about you: Pulse Blood pressure Weight 56/minute 130/70 95.7 kg Adelia Arcos RN 09/27/2023 11:48 AM Signed Cardiac Rehab exercise class Cardiac Rehabilitation [facility] Based Program Supervising Physician: Dr. Dove Diagnosis: Hx of cabg (primary encounter diagnosis) Phase: 2 Monitored: yes Session Number: 36 Patient negative for COVID exposure and symptoms. Today?s exercise session was comprised of a warm-up, aerobic conditioning phase, aerobic, cool down, and free weights and/or resistance machines. Patient tolerated prescribed exercise workload. Tele -SB-SR PVC Vitals WNL for patient. No chest discomfort. No medication changes. This is a hospital based cardiac rehab program. Patient working towards exercise goals by increasing exercise frequency and/or intensity and/or duration. Patient working towards educational goals by attending education classes or receiving and reviewing educational materials with staff. Patient has verbalized understanding of Nutritional Labels education topic and the relation to disease management. Patient?s [facility] Exercise sessions will be scanned into IVDesk once it is completed. These can be viewed by going under the ?Scanned Documents? tab and looking for documents labeled ?Cardiac Rehabilitation.? [facility] Exercise session contains exercise data such as, but not limited to modality, intensity, duration and frequency of exercise, along with vital signs pre, during and post exercise and EKG rhythm strips. REDD Pérez Becky, RN 09/27/2023 11:55 AM Cosign Needed Signature:___Marilyn Dove Date: __09/27/2023 Discharge Assessment for Cardiac Rehab Dino Blandon 09/27/2023 CHIEF COMPLAINT: Dino Blandon is a 73 year old male seen today. Patient presents with: Phase 2 Session Patient completed optimal therapeutic dose of cardiac rehab: Yes Patient demonstrated clinically significant increase in functional capacity: Yes Patient achieved/maintained optimal blood pressure control: Yes Patient achieved clinical significant decrease in symptoms of depression: Yes Current smoking status: Never OUTCOMES: Initial Asmt Outcome 05/29/2023 Resting BP 122/78 Current Weight lb. 211.2 BMI (No Data) Mediterranean Diet Score 9 PHQ9 Score 7 Discharge Asmt Outcome 09/27/2023 Completed Ex. Sessions 36 Resting BP 130/70 Weight 211 BMI 35 Actual Mediterranean Diet Score 9 PHQ9 Score 5 PAST MEDICAL HISTORY Diagnosis Date Chronic kidney disease, stage III (moderate) (HCC) Essential hypertension Pneumothorax on right PAST SURGICAL HISTORY Procedure Laterality Date CABG (3) VEIN GRAFTS AND ARTERIAL GRAFT(S) 04/09/2023 (RODARTE-LAD / SVG-RAMUS / SVG-RC) Social History Tobacco Use Smoking status: Never Smokeless tobacco: Never Vaping Use Vaping Use: Never used Alcohol use: Never Drug use: Never FAMILY HISTORY Problem Relation Age of Onset other (Myocardial infarction) Mother Diabetes Mother other (CABG) Brother Heart Failure Brother Heart disease Brother PPM amnd fabian replacement CURRENT MEDS: Current Outpatient Medications Medication Sig atorvastatin (LIPITOR) 40 mg tablet Take 1 tablet by mouth daily at bedtime. carvedilol (COREG) 12.5 mg tablet Take 1 tablet by mouth two times a day with meals. glimepiride (AMARYL) 1 mg tablet Take 1 tablet by mouth daily with breakfast. amLODIPine (NORVASC) 5 mg tablet Take 2 tablets by mouth once daily. blood sugar diagnostic (ACCU-CHEK GUIDE TEST STRIPS) test strip Use as instructed twice daily tamsulosin (FLOMAX) 0.4 mg Take 1 capsule by mouth daily at bedtime. acetaminophen (TYLENOL) 325 mg tablet Take 2 tablets by mouth every 6 hours as needed for pain. aspirin 81 mg chewable tablet 1 tablet by ORAL/FEEDING TUBE route once daily. Lancets (ACCU-CHEK SOFTCLIX LANCETS) lancets Use as instructed twice daily No current facility-administered medications for this visit. ALLERGIES No Known Allergies PHYSICAL EXAMINATION: BP 130/70 Pulse 56 Wt 211 lb (95.7kg) INDIVIDUAL TREATMENT PLAN Program Location: [facility] Program: Exit Phase II EXERCISE ASSESSMENT Current Exercise: Yes Type of Exercise: Aerobics;Strength Exercise Duration: 60 minutes Exercise Intensity: Moderate Exercise Equipment: Yes Exercise Limitations/Symptoms: No Assist Device: No Oxygen: No Stress Test: No 6 Minute Walk Test: Yes Date: 09/27/23 Distance (ft): 1230 Total Rest Time (seconds): 0 Lowest SPO2: 100 Peak Heart Rate BPM: 81 EXERCISE DISCHARGE PLAN Frequency: 3- (more content not included)... Normal [facility] CNOVon 09-24-2023 [facility] Office Visit (CPRMER ) DINO BLANDON ([id number]) 1950 M Date Time Provider Department 09/24/23 11:30 AM CARDIAC [facility] EXERCISE [facility] During your visit today, we recorded the following information about you: Pulse Blood pressure Weight 55/minute 134/66 95.7 kg Margot Richardson RN 09/24/2023 11:48 AM Signed Cardiac Rehab Education Cardiac Rehabilitation [facility] Program Supervising Physician: Derrell Diagnosis: CABG x3 Phase: 2 Monitor: No Session: 35 Patient working towards educational goal by attending educational sessions in Cardiac Rehabilitation. Patient has verbalized understanding of Nutrition label reading education topic and the relation to disease management. Discussion lead by hospice registered nurse. Education time 35 min Margot Richardson RN Referring Provider: MARILYN DOVE [[id number]] Allergies As of Date: 09/24/2023 (No Known Allergies) Date Reviewed: 08/15/2023 Reviewed by: Sujey Funk MA - Fully Assessed Reason for Visit: Phase 2 Session [5284] Primary Visit Diagnosis:Hx of CABG [Z95.1] Prescriptions as of 09/24/2023 - atorvastatin (LIPITOR) 40 mg tablet Take 1 tablet by mouth daily at bedtime. - carvedilol (COREG) 12.5 mg tablet Take 1 tablet by mouth two times a day with meals. - glimepiride (AMARYL) 1 mg tablet Take 1 tablet by mouth daily with breakfast. - amLODIPine (NORVASC) 5 mg tablet Take 2 tablets by mouth once daily. - blood sugar diagnostic (ACCU-CHEK GUIDE TEST STRIPS) test strip Use as instructed twice daily - tamsulosin (FLOMAX) 0.4 mg Take 1 capsule by mouth daily at bedtime. - acetaminophen (TYLENOL) 325 mg tablet Take 2 tablets by mouth every 6 hours as needed for pain. - aspirin 81 mg chewable tablet 1 tablet by ORAL/FEEDING TUBE route once daily. - Lancets (ACCU-CHEK SOFTCLIX LANCETS) lancets Use as instructed twice daily Problem List As Of Date 09/24/2023 Noted Resolved Angina pectoris (HCC) [I20.9] 04/02/2023 04/13/2023 Essential hypertension [I10] 04/02/2023 Hyperlipidemia [E78.5] 04/04/2023 Controlled type 2 diabetes mellitus without com*04/04/2023 SOLIS (acute kidney injury) (HCC) [N17.9] 04/04/2023 Obesity, Class II, BMI 35-39.9 [E66.9] 04/05/2023 Coronary artery disease involving [place] benavidez*04/05/2023 On mechanically assisted ventilation (HCC) [Z99*04/09/2023 04/13/2023 Postoperative pain [G89.18] 04/09/2023 Pneumothorax on right [J93.9] 04/09/2023 Stress hyperglycemia [R73.9] 04/09/2023 04/22/2023 Hypotension [I95.9] 04/09/2023 04/10/2023 Bilateral atelectasis [J98.11] 04/09/2023 Hypoxemia [R09.02] 04/09/2023 04/22/2023 PAF (paroxysmal atrial fibrillation) (HCC) [I48*04/11/2023 04/22/2023 CKD (chronic kidney disease) [N18.9] 04/13/2023 Summary [Z91.199] 04/15/2023 04/24/2023 Postoperative atrial fibrillation (HCC) [I97.89*04/15/2023 Obesity, Class III, BMI >= 40 [E66.01] 04/15/2023 04/22/2023 Hyponatremia [E87.1] 04/20/2023 04/22/2023 Recurrent urinary tract infection [N39.0] 04/20/2023 Infection due to ESBL-producing Escherichia col*04/20/2023 Staphylococcus epidermidis bacteremia [R78.81, *04/21/2023 Surgical site infection [T81.49XA] 04/21/2023 Encounter for counseling for tdvkclcty-sk-ftcxr* Encounter Status:Closed by MARGOT RICHARDSON on 09/24/23 [facility] CNOV Office Visit (CPRMER ) DINO BLANDON ([id number]) 1950 M Date Time Provider Department 09/24/23 11:00 AM CARDIAC [facility] EXERCISE [facility] During your visit today, we recorded the following information about you: Pulse Blood pressure Weight 55/minute 134/66 95.7 kg Margot Richardson, REDD 09/24/2023 11:39 AM Signed Cardiac Rehab exercise class Cardiac Rehabilitation [facility] Program Supervising Physician: Derrell Diagnosis: Hx of cabg (primary encounter diagnosis) Phase: 2 Monitored: yes Session Number: 35 Patient negative for COVID exposure and symptoms. Today?s exercise session was comprised of a warm-up, aerobic conditioning phase, aerobic, cool down, and free weights and/or resistance machines. Patient tolerated prescribed exercise workload. Tele SB-SR without ectopic beats. Vitals WNL for patient. No chest discomfort. No medication changes. This is a hospital based cardiac rehab program. Patient working towards exercise goals by increasing exercise frequency and/or intensity and/or duration. Patient working towards educational goals by attending education classes or receiving and reviewing educational materials with staff. Patient has verbalized understanding of Nutrition Labels education topic and the relation to disease management. Patient?s [facility] Exercise sessions will be scanned into IVDesk once it is completed. These can be viewed by going under the ?Scanned Documents? tab and looking for documents labeled ?Cardiac Rehabilitation.? [facility] Exercise session contains exercise data such as, but not limited to modality, intensity, duration and frequency of exercise, along with vital signs pre, during and post exercise and EKG rhythm strips. Margot Richardson RN Referring Provider: MARILYN DOVE [[id number]] Allergies As of Date: 09/24/2023 (No Known Allergies) Date Reviewed: 08/15/2023 Reviewed by: Sujey Funk MA - Fully Assessed Reason for Visit: Phase 2 Session [1821] Primary Visit Diagnosis:Hx of CABG [Z95.1] Prescriptions as of 09/24/2023 - atorvastatin (LIPITOR) 40 mg tablet Take 1 tablet by mouth daily at bedtime. - carvedilol (COREG) 12.5 mg tablet Take 1 tablet by mouth two times a day with meals. - glimepiride (AMARYL) 1 mg tablet Take 1 tablet by mouth daily with breakfast. - amLODIPine (NORVASC) 5 mg tablet Take 2 tablets by mouth once daily. - blood sugar diagnostic (ACCU-CHEK GUIDE TEST STRIPS) test strip Use as instructed twice daily - tamsulosin (FLOMAX) 0.4 mg Take 1 capsule by mouth daily at bedtime. - acetaminophen (TYLENOL) 325 mg tablet Take 2 tablets by mouth every 6 hours as needed for pain. - aspirin 81 mg chewable tablet 1 tablet by ORAL/FEEDING TUBE route once daily. - Lancets (ACCU-CHEK SOFTCLIX LANCETS) lancets Use as instructed twice daily Problem List As Of Date 09/24/2023 Noted Resolved Angina pectoris (HCC) [I20.9] 04/02/2023 04/13/2023 Essential hypertension [I10] 04/02/2023 Hyperlipidemia [E78.5] 04/04/2023 Controlled type 2 diabetes mellitus without com*04/04/2023 SOLIS (acute kidney injury) (HCC) [N17.9] 04/04/2023 Obesity, Class II, BMI 35-39.9 [E66.9] 04/05/2023 Coronary artery disease involving [place] benavidez*04/05/2023 On mechanically assisted ventilation (HCC) [Z99*04/09/2023 04/13/2023 Postoperative pain [G89.18] 04/09/2023 Pneumothorax on right [J93.9] 04/09/2023 Stress hyperglycemia [R73.9] 04/09/2023 04/22/2023 Hypotension [I95.9] 04/09/2023 04/10/2023 Bilateral atelectasis [J98.11] 04/09/2023 Hypoxemia [R09.02] 04/09/2023 04/22/2023 PAF (paroxysmal atrial fibrillation) (HCC) [I48*04/11/2023 04/22/2023 CKD (chronic kidney disease) [N18.9] 04/13/2023 Summary [Z91.199] 04/15/2023 04/24/2023 Postoperative atrial fibrillation (HCC) [I97.89*04/15/2023 Obesity, Class III, BMI >= 40 [E66.01] 04/15/2023 04/22/2023 Hyponatremia [E87.1] 04/20/2023 04/22/2023 Recurrent urinary tract infection [N39.0] 04/20/2023 Infection due to ESBL-producing Escherichia col*04/20/2023 Staphylococcus epidermidis bacteremia [R78.81, *04/21/2023 Surgical site infection [T81.49XA] 04/21/2023 Encounter for counseling for saeevfzcs-vz-msies* Encounter Status:Closed by MARGOT RICHARDSON on 09/24/23 [facility] CNOVon 09-13-2023 CNOV Office Visit (CPRMER ) BARBERDINO ([id number]) 1950 M Date Time Provider Department 09/13/23 11:00 AM CARDIAC VAS EXERCISE [facility] During your visit today, we recorded the following information about you: Pulse Blood pressure Weight 53/minute 148/76 96.6 kg Josefa Manning, Oracle Database Administrator 09/13/2023 11:37 AM Signed Cardiac Rehab exercise class Cardiac Rehabilitation [facility] Program Supervising Physician: Derrell Diagnosis: Hx of cabg (primary encounter diagnosis) Phase: 2 Monitored: yes Session Number: 33 Patient negative for COVID exposure and symptoms. Today?s exercise session was comprised of a warm-up, aerobic conditioning phase, aerobic, cool down, and free weights and/or resistance machines. Patient tolerated prescribed exercise workload. Tele SB-SR-ST without ectopic beats. Vitals WNL for patient. No chest discomfort. No medication changes. This is a hospital based cardiac rehab program. Patient working towards exercise goals by increasing exercise frequency and/or intensity and/or duration. Patient working towards educational goals by attending education classes or receiving and reviewing educational materials with staff. Patient has verbalized understanding of Cardiac AANDP education topic and the relation to disease management. Patient?s [facility] Exercise sessions will be scanned into IVDesk once it is completed. These can be viewed by going under the ?Scanned Documents? tab and looking for documents labeled ?Cardiac Rehabilitation.? [facility] Exercise session contains exercise data such as, but not limited to modality, intensity, duration and frequency of exercise, along with vital signs pre, during and post exercise and EKG rhythm strips. Josefa Manning Oracle Database Administrator Referring Provider: MARILYN DOVE [[id number]] Allergies As of Date: 09/13/2023 (No Known Allergies) Date Reviewed: 08/15/2023 Reviewed by: Sujey Funk MA - Fully Assessed Reason for Visit: Phase 2 Session [4297] Primary Visit Diagnosis:Hx of CABG [Z95.1] Prescriptions as of 09/13/2023 - atorvastatin (LIPITOR) 40 mg tablet Take 1 tablet by mouth daily at bedtime. - carvedilol (COREG) 12.5 mg tablet Take 1 tablet by mouth two times a day with meals. - glimepiride (AMARYL) 1 mg tablet Take 1 tablet by mouth daily with breakfast. - amLODIPine (NORVASC) 5 mg tablet Take 2 tablets by mouth once daily. - blood sugar diagnostic (ACCU-CHEK GUIDE TEST STRIPS) test strip Use as instructed twice daily - tamsulosin (FLOMAX) 0.4 mg Take 1 capsule by mouth daily at bedtime. - acetaminophen (TYLENOL) 325 mg tablet Take 2 tablets by mouth every 6 hours as needed for pain. - aspirin 81 mg chewable tablet 1 tablet by ORAL/FEEDING TUBE route once daily. - Lancets (ACCU-CHEK SOFTCLIX LANCETS) lancets Use as instructed twice daily Problem List As Of Date 09/13/2023 Noted Resolved Angina pectoris (HCC) [I20.9] 04/02/2023 04/13/2023 Essential hypertension [I10] 04/02/2023 Hyperlipidemia [E78.5] 04/04/2023 Controlled type 2 diabetes mellitus without com*04/04/2023 SOLIS (acute kidney injury) (HCC) [N17.9] 04/04/2023 Obesity, Class II, BMI 35-39.9 [E66.9] 04/05/2023 Coronary artery disease involving [place] benavidez*04/05/2023 On mechanically assisted ventilation (HCC) [Z99*04/09/2023 04/13/2023 Postoperative pain [G89.18] 04/09/2023 Pneumothorax on right [J93.9] 04/09/2023 Stress hyperglycemia [R73.9] 04/09/2023 04/22/2023 Hypotension [I95.9] 04/09/2023 04/10/2023 Bilateral atelectasis [J98.11] 04/09/2023 Hypoxemia [R09.02] 04/09/2023 04/22/2023 PAF (paroxysmal atrial fibrillation) (HCC) [I48*04/11/2023 04/22/2023 CKD (chronic kidney disease) [N18.9] 04/13/2023 Summary [Z91.199] 04/15/2023 04/24/2023 Postoperative atrial fibrillation (HCC) [I97.89*04/15/2023 Obesity, Class III, BMI >= 40 [E66.01] 04/15/2023 04/22/2023 Hyponatremia [E87.1] 04/20/2023 04/22/2023 Recurrent urinary tract infection [N39.0] 04/20/2023 Infection due to ESBL-producing Escherichia col*04/20/2023 Staphylococcus epidermidis bacteremia [R78.81, *04/21/2023 Surgical site infection [T81.49XA] 04/21/2023 Encounter for counseling for xezjrudjq-dk-oefks* Encounter Status:Closed by JOSEFA MANNING on 09/13/23 [facility] CNOVon 09-12-2023 CNOV Office Visit (CPRMER ) DINO BLANDON ([id number]) 1950 M Date Time Provider Department 09/12/23 11:00 AM CARDIAC [facility] EXERCISE [facility] During your visit today, we recorded the following information about you: Pulse Blood pressure Weight Height 55/minute 122/60 96.6 kg 1.638 m Alana Menon, REDD 09/12/2023 11:40 AM Signed Cardiac Rehab exercise class Cardiac Rehabilitation [facility] Program Supervising Physician: Marilyn Dove Diagnosis: Hx of cabg (primary encounter diagnosis) Phase: 2 Monitored: yes Session Number: 32 Patient negative for COVID exposure and symptoms. Today?s exercise session was comprised of a warm-up, aerobic conditioning phase, aerobic, cool down, and free weights and/or resistance machines. Patient tolerated prescribed exercise workload. Tele SD-IQ-tvcgjit ectopic beats. Vitals WNL for patient. No chest discomfort. No medication changes. This is a hospital based cardiac rehab program. Patient working towards exercise goals by increasing exercise frequency and/or intensity and/or duration. Patient working towards educational goals by attending education classes or receiving and reviewing educational materials with staff. Patient has verbalized understanding of A/P Heart education topic and the relation to disease management. Patient?s [facility] Exercise sessions will be scanned into IVDesk once it is completed. These can be viewed by going under the ?Scanned Documents? tab and looking for documents labeled ?Cardiac Rehabilitation.? [facility] Exercise session contains exercise data such as, but not limited to modality, intensity, duration and frequency of exercise, along with vital signs pre, during and post exercise and EKG rhythm strips. Alana Menon RN Referring Provider: MARILYN DOVE [[id number]] Allergies As of Date: 09/12/2023 (No Known Allergies) Date Reviewed: 08/15/2023 Reviewed by: Sujey Funk MA - Fully Assessed Reason for Visit: Phase 2 Session [0589] Primary Visit Diagnosis:Hx of CABG [Z95.1] Prescriptions as of 09/12/2023 - atorvastatin (LIPITOR) 40 mg tablet Take 1 tablet by mouth daily at bedtime. - carvedilol (COREG) 12.5 mg tablet Take 1 tablet by mouth two times a day with meals. - glimepiride (AMARYL) 1 mg tablet Take 1 tablet by mouth daily with breakfast. - amLODIPine (NORVASC) 5 mg tablet Take 2 tablets by mouth once daily. - blood sugar diagnostic (ACCU-CHEK GUIDE TEST STRIPS) test strip Use as instructed twice daily - tamsulosin (FLOMAX) 0.4 mg Take 1 capsule by mouth daily at bedtime. - acetaminophen (TYLENOL) 325 mg tablet Take 2 tablets by mouth every 6 hours as needed for pain. - aspirin 81 mg chewable tablet 1 tablet by ORAL/FEEDING TUBE route once daily. - Lancets (ACCU-CHEK SOFTCLIX LANCETS) lancets Use as instructed twice daily Problem List As Of Date 09/12/2023 Noted Resolved Angina pectoris (HCC) [I20.9] 04/02/2023 04/13/2023 Essential hypertension [I10] 04/02/2023 Hyperlipidemia [E78.5] 04/04/2023 Controlled type 2 diabetes mellitus without com*04/04/2023 SOLIS (acute kidney injury) (HCC) [N17.9] 04/04/2023 Obesity, Class II, BMI 35-39.9 [E66.9] 04/05/2023 Coronary artery disease involving [place] benavidez*04/05/2023 On mechanically assisted ventilation (HCC) [Z99*04/09/2023 04/13/2023 Postoperative pain [G89.18] 04/09/2023 Pneumothorax on right [J93.9] 04/09/2023 Stress hyperglycemia [R73.9] 04/09/2023 04/22/2023 Hypotension [I95.9] 04/09/2023 04/10/2023 Bilateral atelectasis [J98.11] 04/09/2023 Hypoxemia [R09.02] 04/09/2023 04/22/2023 PAF (paroxysmal atrial fibrillation) (HCC) [I48*04/11/2023 04/22/2023 CKD (chronic kidney disease) [N18.9] 04/13/2023 Summary [Z91.199] 04/15/2023 04/24/2023 Postoperative atrial fibrillation (HCC) [I97.89*04/15/2023 Obesity, Class III, BMI >= 40 [E66.01] 04/15/2023 04/22/2023 Hyponatremia [E87.1] 04/20/2023 04/22/2023 Recurrent urinary tract infection [N39.0] 04/20/2023 Infection due to ESBL-producing Escherichia col*04/20/2023 Staphylococcus epidermidis bacteremia [R78.81, *04/21/2023 Surgical site infection [T81.49XA] 04/21/2023 Encounter for counseling for thkjvkifk-pj-cnncm* Encounter Status:Closed by ALANA MENON on 09/12/23 [facility] Cornelio 09-10-2023 CNOV Office Visit (CPRMER ) DINO BLANDON ([id number]) 1950 M Date Time Provider Department 09/10/23 11:00 AM CARDIAC VASC EXERCISE [facility] During your visit today, we recorded the following information about you: Pulse Blood pressure Weight 57/minute 150/78 96.6 kg Margot Richardson, REDD 09/10/2023 11:38 AM Addendum Cardiac Rehab exercise class Cardiac Rehabilitation [facility] Based Program Supervising Physician: Derrell Diagnosis: Hx of cabg (primary encounter diagnosis) Phase: 2 Monitored: yes Session Number: 31 Patient negative for COVID exposure and symptoms. Today?s exercise session was comprised of a warm-up, aerobic conditioning phase, aerobic, cool down, and free weights and/or resistance machines. Patient tolerated prescribed exercise workload. Tele SB, PACs. Asymptomatic with ectopic beats. Vitals WNL for patient. No chest discomfort. No medication changes. This is a hospital based cardiac rehab program. Patient working towards exercise goals by increasing exercise frequency and/or intensity and/or duration. Patient working towards educational goals by attending education classes or receiving and reviewing educational materials with staff. Patient has verbalized understanding of Cardiac AANDP education topic and the relation to disease management. Patient?s [facility] Exercise sessions will be scanned into IVDesk once it is completed. These can be viewed by going under the ?Scanned Documents? tab and looking for documents labeled ?Cardiac Rehabilitation.? [facility] Exercise session contains exercise data such as, but not limited to modality, intensity, duration and frequency of exercise, along with vital signs pre, during and post exercise and EKG rhythm strips. Margot Richardson RN Referring Provider: MARILYN DOVE [[id number]] Allergies As of Date: 09/10/2023 (No Known Allergies) Date Reviewed: 08/15/2023 Reviewed by: Sujey Funk MA - Fully Assessed Reason for Visit: Phase 2 Session [5511] Primary Visit Diagnosis:Hx of CABG [Z95.1] Prescriptions as of 09/10/2023 - atorvastatin (LIPITOR) 40 mg tablet Take 1 tablet by mouth daily at bedtime. - carvedilol (COREG) 12.5 mg tablet Take 1 tablet by mouth two times a day with meals. - glimepiride (AMARYL) 1 mg tablet Take 1 tablet by mouth daily with breakfast. - amLODIPine (NORVASC) 5 mg tablet Take 2 tablets by mouth once daily. - blood sugar diagnostic (ACCU-CHEK GUIDE TEST STRIPS) test strip Use as instructed twice daily - tamsulosin (FLOMAX) 0.4 mg Take 1 capsule by mouth daily at bedtime. - acetaminophen (TYLENOL) 325 mg tablet Take 2 tablets by mouth every 6 hours as needed for pain. - aspirin 81 mg chewable tablet 1 tablet by ORAL/FEEDING TUBE route once daily. - Lancets (ACCU-CHEK SOFTCLIX LANCETS) lancets Use as instructed twice daily Problem List As Of Date 09/10/2023 Noted Resolved Angina pectoris (HCC) [I20.9] 04/02/2023 04/13/2023 Essential hypertension [I10] 04/02/2023 Hyperlipidemia [E78.5] 04/04/2023 Controlled type 2 diabetes mellitus without com*04/04/2023 SOLIS (acute kidney injury) (HCC) [N17.9] 04/04/2023 Obesity, Class II, BMI 35-39.9 [E66.9] 04/05/2023 Coronary artery disease involving [place] benavidez*04/05/2023 On mechanically assisted ventilation (HCC) [Z99*04/09/2023 04/13/2023 Postoperative pain [G89.18] 04/09/2023 Pneumothorax on right [J93.9] 04/09/2023 Stress hyperglycemia [R73.9] 04/09/2023 04/22/2023 Hypotension [I95.9] 04/09/2023 04/10/2023 Bilateral atelectasis [J98.11] 04/09/2023 Hypoxemia [R09.02] 04/09/2023 04/22/2023 PAF (paroxysmal atrial fibrillation) (HCC) [I48*04/11/2023 04/22/2023 CKD (chronic kidney disease) [N18.9] 04/13/2023 Summary [Z91.199] 04/15/2023 04/24/2023 Postoperative atrial fibrillation (HCC) [I97.89*04/15/2023 Obesity, Class III, BMI >= 40 [E66.01] 04/15/2023 04/22/2023 Hyponatremia [E87.1] 04/20/2023 04/22/2023 Recurrent urinary tract infection [N39.0] 04/20/2023 Infection due to ESBL-producing Escherichia col*04/20/2023 Staphylococcus epidermidis bacteremia [R78.81, *04/21/2023 Surgical site infection [T81.49XA] 04/21/2023 Encounter for counseling for ehchqkpdt-ak-gqsng* Encounter Status:Closed by MARGOT RICHARDSON on 09/10/23 [facility] CNOVon 09-06-2023 CNOV Office Visit (CPRMER ) DINO BLANDON ([id number]) 1950 M Date Time Provider Department 09/06/23 11:00 AM CARDIAC [facility] EXERCISE [facility] During your visit today, we recorded the following information about you: Pulse Blood pressure Weight 57/minute 146/80 96.6 kg Josefa Manning, Oracle Database Administrator 09/06/2023 11:41 AM Signed Cardiac Rehab exercise class Cardiac Rehabilitation Hospital Based Program Supervising Physician: Derrell Diagnosis: Hx of cabg (primary encounter diagnosis) Phase: 2 Monitored: yes Session Number: 30 Patient negative for COVID exposure and symptoms. Today?s exercise session was comprised of a warm-up, aerobic conditioning phase, aerobic, cool down, and free weights and/or resistance machines. Patient tolerated prescribed exercise workload. Tele SB-SR- PVCs. Vitals WNL for patient. No chest discomfort. No medication changes. This is a hospital based cardiac rehab program. Patient working towards exercise goals by increasing exercise frequency and/or intensity and/or duration. Patient working towards educational goals by attending education classes or receiving and reviewing educational materials with staff. Patient has verbalized understanding of Exercise FITT Principles education topic and the relation to disease management. Patient?s [facility] Exercise sessions will be scanned into IVDesk once it is completed. These can be viewed by going under the ?Scanned Documents? tab and looking for documents labeled ?Cardiac Rehabilitation.? [facility] Exercise session contains exercise data such as, but not limited to modality, intensity, duration and frequency of exercise, along with vital signs pre, during and post exercise and EKG rhythm strips. Josefa Manning, Oracle Database Administrator Referring Provider: MARILYN DOVE [[id number]] Allergies As of Date: 09/06/2023 (No Known Allergies) Date Reviewed: 08/15/2023 Reviewed by: Sujey Funk MA - Fully Assessed Reason for Visit: Phase 2 Session [8594] Primary Visit Diagnosis:Hx of CABG [Z95.1] Prescriptions as of 09/06/2023 - atorvastatin (LIPITOR) 40 mg tablet Take 1 tablet by mouth daily at bedtime. - carvedilol (COREG) 12.5 mg tablet Take 1 tablet by mouth two times a day with meals. - glimepiride (AMARYL) 1 mg tablet Take 1 tablet by mouth daily with breakfast. - amLODIPine (NORVASC) 5 mg tablet Take 2 tablets by mouth once daily. - blood sugar diagnostic (ACCU-CHEK GUIDE TEST STRIPS) test strip Use as instructed twice daily - tamsulosin (FLOMAX) 0.4 mg Take 1 capsule by mouth daily at bedtime. - acetaminophen (TYLENOL) 325 mg tablet Take 2 tablets by mouth every 6 hours as needed for pain. - aspirin 81 mg chewable tablet 1 tablet by ORAL/FEEDING TUBE route once daily. - Lancets (ACCU-CHEK SOFTCLIX LANCETS) lancets Use as instructed twice daily Problem List As Of Date 09/06/2023 Noted Resolved Angina pectoris (HCC) [I20.9] 04/02/2023 04/13/2023 Essential hypertension [I10] 04/02/2023 Hyperlipidemia [E78.5] 04/04/2023 Controlled type 2 diabetes mellitus without com*04/04/2023 SOLIS (acute kidney injury) (HCC) [N17.9] 04/04/2023 Obesity, Class II, BMI 35-39.9 [E66.9] 04/05/2023 Coronary artery disease involving [place] benavidez*04/05/2023 On mechanically assisted ventilation (HCC) [Z99*04/09/2023 04/13/2023 Postoperative pain [G89.18] 04/09/2023 Pneumothorax on right [J93.9] 04/09/2023 Stress hyperglycemia [R73.9] 04/09/2023 04/22/2023 Hypotension [I95.9] 04/09/2023 04/10/2023 Bilateral atelectasis [J98.11] 04/09/2023 Hypoxemia [R09.02] 04/09/2023 04/22/2023 PAF (paroxysmal atrial fibrillation) (HCC) [I48*04/11/2023 04/22/2023 CKD (chronic kidney disease) [N18.9] 04/13/2023 Summary [Z91.199] 04/15/2023 04/24/2023 Postoperative atrial fibrillation (HCC) [I97.89*04/15/2023 Obesity, Class III, BMI >= 40 [E66.01] 04/15/2023 04/22/2023 Hyponatremia [E87.1] 04/20/2023 04/22/2023 Recurrent urinary tract infection [N39.0] 04/20/2023 Infection due to ESBL-producing Escherichia col*04/20/2023 Staphylococcus epidermidis bacteremia [R78.81, *04/21/2023 Surgical site infection [T81.49XA] 04/21/2023 Encounter for counseling for qerkejdgn-wk-vdkwa* Encounter Status:Closed by JOSEFA MANNING on 09/06/23 [facility] CNOVon 09-03-2023 CNOV Office Visit (CPRMER ) DINO BLANDON ([id number]) 1950 M Date Time Provider Department 09/03/23 11:00 AM CARDIAC VASC EXERCISE OTILIA NICOLE During your visit today, we recorded the following information about you: Pulse Blood pressure Weight 60/minute 120/70 96.6 kg Margot Richardson, RN 09/03/2023 11:38 AM Addendum Cardiac Rehab exercise class [facility] Supervising Physician: Derrell Diagnosis: Hx of cabg (primary encounter diagnosis) Phase: 2 Monitored: yes Session Number: 29 Patient negative for COVID exposure and symptoms. Today?s exercise session was comprised of a warm-up, aerobic conditioning phase, aerobic, cool down, and free weights and/or resistance machines. Patient tolerated prescribed exercise workload. Tele SB-SR, PVC. Asymptomatic with ectopic beats.Vitals WNL for patient. No chest discomfort. No medication changes. This is a hospital based cardiac rehab program. Patient working towards exercise goals by increasing exercise frequency and/or intensity and/or duration. Patient working towards educational goals by attending education classes or receiving and reviewing educational materials with staff. Patient has verbalized understanding of FITT education topic and the relation to disease management. Patient?s [facility] Exercise sessions will be scanned into IVDesk once it is completed. These can be viewed by going under the ?Scanned Documents? tab and looking for documents labeled ?Cardiac Rehabilitation.? [facility] Exercise session contains exercise data such as, but not limited to modality, intensity, duration and frequency of exercise, along with vital signs pre, during and post exercise and EKG rhythm strips. Margot Richardson RN Referring Provider: MARILYN DOVE [[id number]] Allergies As of Date: 09/03/2023 (No Known Allergies) Date Reviewed: 08/15/2023 Reviewed by: Sujey Funk MA - Fully Assessed Reason for Visit: Phase 2 Session [7480] Primary Visit Diagnosis:Hx of CABG [Z95.1] Prescriptions as of 09/03/2023 - atorvastatin (LIPITOR) 40 mg tablet Take 1 tablet by mouth daily at bedtime. - carvedilol (COREG) 12.5 mg tablet Take 1 tablet by mouth two times a day with meals. - glimepiride (AMARYL) 1 mg tablet Take 1 tablet by mouth daily with breakfast. - amLODIPine (NORVASC) 5 mg tablet Take 2 tablets by mouth once daily. - blood sugar diagnostic (ACCU-CHEK GUIDE TEST STRIPS) test strip Use as instructed twice daily - tamsulosin (FLOMAX) 0.4 mg Take 1 capsule by mouth daily at bedtime. - acetaminophen (TYLENOL) 325 mg tablet Take 2 tablets by mouth every 6 hours as needed for pain. - aspirin 81 mg chewable tablet 1 tablet by ORAL/FEEDING TUBE route once daily. - Lancets (ACCU-CHEK SOFTCLIX LANCETS) lancets Use as instructed twice daily Problem List As Of Date 09/03/2023 Noted Resolved Angina pectoris (HCC) [I20.9] 04/02/2023 04/13/2023 Essential hypertension [I10] 04/02/2023 Hyperlipidemia [E78.5] 04/04/2023 Controlled type 2 diabetes mellitus without com*04/04/2023 SOLIS (acute kidney injury) (HCC) [N17.9] 04/04/2023 Obesity, Class II, BMI 35-39.9 [E66.9] 04/05/2023 Coronary artery disease involving [place] benavidez*04/05/2023 On mechanically assisted ventilation (HCC) [Z99*04/09/2023 04/13/2023 Postoperative pain [G89.18] 04/09/2023 Pneumothorax on right [J93.9] 04/09/2023 Stress hyperglycemia [R73.9] 04/09/2023 04/22/2023 Hypotension [I95.9] 04/09/2023 04/10/2023 Bilateral atelectasis [J98.11] 04/09/2023 Hypoxemia [R09.02] 04/09/2023 04/22/2023 PAF (paroxysmal atrial fibrillation) ([facility]) [I48*04/11/2023 04/22/2023 CKD (chronic kidney disease) [N18.9] 04/13/2023 Summary [Z91.199] 04/15/2023 04/24/2023 Postoperative atrial fibrillation (HCC) [I97.89*04/15/2023 Obesity, Class III, BMI >= 40 [E66.01] 04/15/2023 04/22/2023 Hyponatremia [E87.1] 04/20/2023 04/22/2023 Recurrent urinary tract infection [N39.0] 04/20/2023 Infection due to ESBL-producing Escherichia col*04/20/2023 Staphylococcus epidermidis bacteremia [R78.81, *04/21/2023 Surgical site infection [T81.49XA] 04/21/2023 Encounter for counseling for jorpgqwhi-xs-vnwnj* Encounter Status:Closed by MARGOT RICHARDSON on 09/03/23 [facility] CNOVon 08-30-2023 CNOV Office Visit (CPRMER ) DINO BLANDON ([id number]) 1950 M Date Time Provider Department 08/30/23 11:00 AM CARDIAC VAS EXERCISE [facility] CPRMER During your visit today, we recorded the following information about you: Pulse Blood pressure Weight Height 54/minute 140/76 97.1 kg 1.638 m Alana Menon RN 08/30/2023 11:34 AM Signed Cardiac Rehab exercise class Card[facility] Rehabilitation [facility] Supervising Physician: Marilyn Dove Diagnosis: Hx of cabg (primary encounter diagnosis) Phase: 2 Monitored: yes Session Number: 28 Patient negative for COVID exposure and symptoms. Today?s exercise session was comprised of a warm-up, aerobic conditioning phase, aerobic, cool down, and free weights and/or resistance machines. Patient tolerated prescribed exercise workload. Tele SB-SR- without ectopic beats. Vitals WNL for patient. No chest discomfort. No medication changes. This is a hospital based cardiac rehab program. Patient working towards exercise goals by increasing exercise frequency and/or intensity and/or duration. Patient working towards educational goals by attending education classes or receiving and reviewing educational materials with staff. Patient has verbalized understanding of Heart Healthy Fats, Med diet education topic and the relation to disease management. Patient?s [facility] Exercise sessions will be scanned into IVDesk once it is completed. These can be viewed by going under the ?Scanned Documents? tab and looking for documents labeled ?Cardiac Rehabilitation.? [facility] Exercise session contains exercise data such as, but not limited to modality, intensity, duration and frequency of exercise, along with vital signs pre, during and post exercise and EKG rhythm strips. Alana Menon RN Referring Provider: MARILYN DOVE [[id number]] Allergies As of Date: 08/30/2023 (No Known Allergies) Date Reviewed: 08/15/2023 Reviewed by: Sujey Funk MA - Fully Assessed Reason for Visit: Phase 2 Session [7463] Primary Visit Diagnosis:Hx of CABG [Z95.1] Prescriptions as of 08/30/2023 - atorvastatin (LIPITOR) 40 mg tablet Take 1 tablet by mouth daily at bedtime. - carvedilol (COREG) 12.5 mg tablet Take 1 tablet by mouth two times a day with meals. - glimepiride (AMARYL) 1 mg tablet Take 1 tablet by mouth daily with breakfast. - amLODIPine (NORVASC) 5 mg tablet Take 2 tablets by mouth once daily. - blood sugar diagnostic (ACCU-CHEK GUIDE TEST STRIPS) test strip Use as instructed twice daily - tamsulosin (FLOMAX) 0.4 mg Take 1 capsule by mouth daily at bedtime. - acetaminophen (TYLENOL) 325 mg tablet Take 2 tablets by mouth every 6 hours as needed for pain. - aspirin 81 mg chewable tablet 1 tablet by ORAL/FEEDING TUBE route once daily. - Lancets (ACCU-CHEK SOFTCLIX LANCETS) lancets Use as instructed twice daily Problem List As Of Date 08/30/2023 Noted Resolved Angina pectoris (HCC) [I20.9] 04/02/2023 04/13/2023 Essential hypertension [I10] 04/02/2023 Hyperlipidemia [E78.5] 04/04/2023 Controlled type 2 diabetes mellitus without com*04/04/2023 SOLIS (acute kidney injury) (HCC) [N17.9] 04/04/2023 Obesity, Class II, BMI 35-39.9 [E66.9] 04/05/2023 Coronary artery disease involving [place] benavidez*04/05/2023 On mechanically assisted ventilation (HCC) [Z99*04/09/2023 04/13/2023 Postoperative pain [G89.18] 04/09/2023 Pneumothorax on right [J93.9] 04/09/2023 Stress hyperglycemia [R73.9] 04/09/2023 04/22/2023 Hypotension [I95.9] 04/09/2023 04/10/2023 Bilateral atelectasis [J98.11] 04/09/2023 Hypoxemia [R09.02] 04/09/2023 04/22/2023 PAF (paroxysmal atrial fibrillation) (HCC) [I48*04/11/2023 04/22/2023 CKD (chronic kidney disease) [N18.9] 04/13/2023 Summary [Z91.199] 04/15/2023 04/24/2023 Postoperative atrial fibrillation (HCC) [I97.89*04/15/2023 Obesity, Class III, BMI >= 40 [E66.01] 04/15/2023 04/22/2023 Hyponatremia [E87.1] 04/20/2023 04/22/2023 Recurrent urinary tract infection [N39.0] 04/20/2023 Infection due to ESBL-producing Escherichia col*04/20/2023 Staphylococcus epidermidis bacteremia [R78.81, *04/21/2023 Surgical site infection [T81.49XA] 04/21/2023 Encounter for counseling for svefohkpf-cl-uwqzk* Encounter Status:Closed by ALANA MENON on 08/30/23 [facility] CNOVon 08-27-2023 CNOV Office Visit (CPRMER ) DINO BLANDON ([id number]) 1950 M Date Time Provider Department 08/27/23 11:00 AM CARDIAC VASC EXERCISE [facility] During your visit today, we recorded the following information about you: Pulse Blood pressure Weight 62/minute 140/72 96.6 kg Adelia Arcos, REDD 08/27/2023 11:36 AM Signed Cardiac Rehab exercise class Card[facility] Supervising Physician: Dr. Dove Diagnosis: Hx of cabg (primary encounter diagnosis) Phase: 2 Monitored: yes Session Number: 27 Patient negative for COVID exposure and symptoms. Today?s exercise session was comprised of a warm-up, aerobic conditioning phase, aerobic, cool down, and free weights and/or resistance machines. Patient tolerated prescribed exercise workload. Tele -SR-without ectopic beats. Vitals WNL for patient. No chest discomfort. No medication changes. This is a hospital based cardiac rehab program. Patient working towards exercise goals by increasing exercise frequency and/or intensity and/or duration. Patient working towards educational goals by attending education classes or receiving and reviewing educational materials with staff. Patient has verbalized understanding of Fats Friend or foe education topic and the relation to disease management. Patient?s [facility] Exercise sessions will be scanned into IVDesk once it is completed. These can be viewed by going under the ?Scanned Documents? tab and looking for documents labeled ?Cardiac Rehabilitation.? [facility] Exercise session contains exercise data such as, but not limited to modality, intensity, duration and frequency of exercise, along with vital signs pre, during and post exercise and EKG rhythm strips. Adelia Arcos RN Referring Provider: MARILYN DOVE [[id number]] Allergies As of Date: 08/27/2023 (No Known Allergies) Date Reviewed: 08/15/2023 Reviewed by: Sujey Funk MA - Fully Assessed Reason for Visit: Phase 2 Session [5341] Primary Visit Diagnosis:Hx of CABG [Z95.1] Prescriptions as of 08/27/2023 - atorvastatin (LIPITOR) 40 mg tablet Take 1 tablet by mouth daily at bedtime. - carvedilol (COREG) 12.5 mg tablet Take 1 tablet by mouth two times a day with meals. - glimepiride (AMARYL) 1 mg tablet Take 1 tablet by mouth daily with breakfast. - amLODIPine (NORVASC) 5 mg tablet Take 2 tablets by mouth once daily. - blood sugar diagnostic (ACCU-CHEK GUIDE TEST STRIPS) test strip Use as instructed twice daily - tamsulosin (FLOMAX) 0.4 mg Take 1 capsule by mouth daily at bedtime. - acetaminophen (TYLENOL) 325 mg tablet Take 2 tablets by mouth every 6 hours as needed for pain. - aspirin 81 mg chewable tablet 1 tablet by ORAL/FEEDING TUBE route once daily. - Lancets (ACCU-CHEK SOFTCLIX LANCETS) lancets Use as instructed twice daily Problem List As Of Date 08/27/2023 Noted Resolved Angina pectoris (HCC) [I20.9] 04/02/2023 04/13/2023 Essential hypertension [I10] 04/02/2023 Hyperlipidemia [E78.5] 04/04/2023 Controlled type 2 diabetes mellitus without com*04/04/2023 SOLIS (acute kidney injury) ([facility]) [N17.9] 04/04/2023 Obesity, Class II, BMI 35-39.9 [E66.9] 04/05/2023 Coronary artery disease involving [place] benavidez*04/05/2023 On mechanically assisted ventilation (HCC) [Z99*04/09/2023 04/13/2023 Postoperative pain [G89.18] 04/09/2023 Pneumothorax on right [J93.9] 04/09/2023 Stress hyperglycemia [R73.9] 04/09/2023 04/22/2023 Hypotension [I95.9] 04/09/2023 04/10/2023 Bilateral atelectasis [J98.11] 04/09/2023 Hypoxemia [R09.02] 04/09/2023 04/22/2023 PAF (paroxysmal atrial fibrillation) ([facility]) [I48*04/11/2023 04/22/2023 CKD (chronic kidney disease) [N18.9] 04/13/2023 Summary [Z91.199] 04/15/2023 04/24/2023 Postoperative atrial fibrillation ([facility]) [I97.89*04/15/2023 Obesity, Class III, BMI >= 40 [E66.01] 04/15/2023 04/22/2023 Hyponatremia [E87.1] 04/20/2023 04/22/2023 Recurrent urinary tract infection [N39.0] 04/20/2023 Infection due to ESBL-producing Escherichia col*04/20/2023 Staphylococcus epidermidis bacteremia [R78.81, *04/21/2023 Surgical site infection [T81.49XA] 04/21/2023 Encounter for counseling for jhvjemmzz-vs-cyayq* Encounter Status:Closed by ADELIA ARCOS on 08/27/23 [facility] CNOVon 08-22-2023 CNOV Office Visit (CPRMER ) DINO BLANDON ([id number]) 1950 M Date Time Provider Department 08/22/23 11:00 AM CARDIAC VAS EXERCISE OTILIA NICOLE During your visit today, we recorded the following information about you: Pulse Blood pressure Weight Height 59/minute 136/70 96.8 kg 1.638 m Alana Menon, REDD 08/22/2023 11:30 AM Signed Cardiac Rehab exercise class Card[facility] Rehabilitation [facility] Supervising Physician: Marilyn Dove Diagnosis: Hx of cabg (primary encounter diagnosis) Phase: 2 Monitored: yes Session Number: 26 Patient negative for COVID exposure and symptoms. Today?s exercise session was comprised of a warm-up, aerobic conditioning phase, aerobic, cool down, and free weights and/or resistance machines. Patient tolerated prescribed exercise workload. Tele SB-SR without ectopic beats. Vitals WNL for patient. No chest discomfort. No medication changes. This is a hospital based cardiac rehab program. Patient working towards exercise goals by increasing exercise frequency and/or intensity and/or duration. Patient working towards educational goals by attending education classes or receiving and reviewing educational materials with staff. Patient has verbalized understanding of Medications education topic and the relation to disease management. Patient?s [facility] Exercise sessions will be scanned into IVDesk once it is completed. These can be viewed by going under the ?Scanned Documents? tab and looking for documents labeled ?Cardiac Rehabilitation.? [facility] Exercise session contains exercise data such as, but not limited to modality, intensity, duration and frequency of exercise, along with vital signs pre, during and post exercise and EKG rhythm strips. Alana Menon RN Referring Provider: MARILYN DOVE [[id number]] Allergies As of Date: 08/22/2023 (No Known Allergies) Date Reviewed: 08/15/2023 Reviewed by: Sujey Funk MA - Fully Assessed Reason for Visit: Phase 2 Session [5420] Primary Visit Diagnosis:Hx of CABG [Z95.1] Prescriptions as of 08/22/2023 - atorvastatin (LIPITOR) 40 mg tablet Take 1 tablet by mouth daily at bedtime. - carvedilol (COREG) 12.5 mg tablet Take 1 tablet by mouth two times a day with meals. - glimepiride (AMARYL) 1 mg tablet Take 1 tablet by mouth daily with breakfast. - amLODIPine (NORVASC) 5 mg tablet Take 2 tablets by mouth once daily. - blood sugar diagnostic (ACCU-CHEK GUIDE TEST STRIPS) test strip Use as instructed twice daily - tamsulosin (FLOMAX) 0.4 mg Take 1 capsule by mouth daily at bedtime. - acetaminophen (TYLENOL) 325 mg tablet Take 2 tablets by mouth every 6 hours as needed for pain. - aspirin 81 mg chewable tablet 1 tablet by ORAL/FEEDING TUBE route once daily. - Lancets (ACCU-CHEK SOFTCLIX LANCETS) lancets Use as instructed twice daily Problem List As Of Date 08/22/2023 Noted Resolved Angina pectoris (HCC) [I20.9] 04/02/2023 04/13/2023 Essential hypertension [I10] 04/02/2023 Hyperlipidemia [E78.5] 04/04/2023 Controlled type 2 diabetes mellitus without com*04/04/2023 SOLIS (acute kidney injury) (HCC) [N17.9] 04/04/2023 Obesity, Class II, BMI 35-39.9 [E66.9] 04/05/2023 Coronary artery disease involving [place] benavidez*04/05/2023 On mechanically assisted ventilation (HCC) [Z99*04/09/2023 04/13/2023 Postoperative pain [G89.18] 04/09/2023 Pneumothorax on right [J93.9] 04/09/2023 Stress hyperglycemia [R73.9] 04/09/2023 04/22/2023 Hypotension [I95.9] 04/09/2023 04/10/2023 Bilateral atelectasis [J98.11] 04/09/2023 Hypoxemia [R09.02] 04/09/2023 04/22/2023 PAF (paroxysmal atrial fibrillation) (HCC) [I48*04/11/2023 04/22/2023 CKD (chronic kidney disease) [N18.9] 04/13/2023 Summary [Z91.199] 04/15/2023 04/24/2023 Postoperative atrial fibrillation (HCC) [I97.89*04/15/2023 Obesity, Class III, BMI >= 40 [E66.01] 04/15/2023 04/22/2023 Hyponatremia [E87.1] 04/20/2023 04/22/2023 Recurrent urinary tract infection [N39.0] 04/20/2023 Infection due to ESBL-producing Escherichia col*04/20/2023 Staphylococcus epidermidis bacteremia [R78.81, *04/21/2023 Surgical site infection [T81.49XA] 04/21/2023 Encounter for counseling for wcsbsdfwp-yn-drdsz* Encounter Status:Closed by ALANA MENON on 08/22/23 [facility] CNOVon 08-20-2023 CNOV Office Visit (CPRMER ) DINO BLANDON ([id number]) 1950 M Date Time Provider Department 08/20/23 11:00 AM CARDIAC [facility] EXERCISE [facility] During your visit today, we recorded the following information about you: Pulse Blood pressure Weight 61/minute 130/70 96.6 kg Margot Richardson, REDD 08/20/2023 11:40 AM Signed Cardiac Rehab exercise class Cardiac Rehabilitation [facility] Supervising Physician: Derrell Diagnosis: Hx of cabg (primary encounter diagnosis) Phase: 2 Monitored: yes Session Number: 25 Patient negative for COVID exposure and symptoms. Today?s exercise session was comprised of a warm-up, aerobic conditioning phase, aerobic, cool down, and free weights and/or resistance machines. Patient tolerated prescribed exercise workload. Tele SB-SR 1st degree, PVCs. Asymptomatic with ectopic beats. Vitals WNL for patient. No chest discomfort. No medication changes. This is a hospital based cardiac rehab program. Patient working towards exercise goals by increasing exercise frequency and/or intensity and/or duration. Patient working towards educational goals by attending education classes or receiving and reviewing educational materials with staff. Patient has verbalized understanding of Medications education topic and the relation to disease management. Patient?s [facility] Exercise sessions will be scanned into IVDesk once it is completed. These can be viewed by going under the ?Scanned Documents? tab and looking for documents labeled ?Cardiac Rehabilitation.? [facility] Exercise session contains exercise data such as, but not limited to modality, intensity, duration and frequency of exercise, along with vital signs pre, during and post exercise and EKG rhythm strips. Margot Richardson, RN Margot Richardson RN 08/29/2023 8:06 AM Signed 90 DAY Assessment for Cardiac Rehab Dino Blandon 08/20/2023 CHIEF COMPLAINT: Dino Blandon is a 73 year old male seen today. Patient presents with: Phase 2 Session HISTORY OF PRESENT ILLNESS: PAST MEDICAL HISTORY Diagnosis Date Chronic kidney disease, stage III (moderate) (HCC) Essential hypertension Pneumothorax on right PAST SURGICAL HISTORY Procedure Laterality Date CABG (3) VEIN GRAFTS AND ARTERIAL GRAFT(S) 04/09/2023 (RODARTE-LAD / SVG-RAMUS / SVG-RC) Social History Tobacco Use Smoking status: Never Smokeless tobacco: Never Vaping Use Vaping Use: Never used Alcohol use: Never Drug use: Never FAMILY HISTORY Problem Relation Age of Onset other (Myocardial infarction) Mother Diabetes Mother other (CABG) Brother Heart Failure Brother Heart disease Brother PPM amnd fabian replacement CURRENT MEDS: Current Outpatient Medications Medication Sig atorvastatin (LIPITOR) 40 mg tablet Take 1 tablet by mouth daily at bedtime. carvedilol (COREG) 12.5 mg tablet Take 1 tablet by mouth two times a day with meals. glimepiride (AMARYL) 1 mg tablet Take 1 tablet by mouth daily with breakfast. amLODIPine (NORVASC) 5 mg tablet Take 2 tablets by mouth once daily. blood sugar diagnostic (ACCU-CHEK GUIDE TEST STRIPS) test strip Use as instructed twice daily tamsulosin (FLOMAX) 0.4 mg Take 1 capsule by mouth daily at bedtime. acetaminophen (TYLENOL) 325 mg tablet Take 2 tablets by mouth every 6 hours as needed for pain. aspirin 81 mg chewable tablet 1 tablet by ORAL/FEEDING TUBE route once daily. Lancets (ACCU-CHEK SOFTCLIX LANCETS) lancets Use as instructed twice daily No current facility-administered medications for this visit. ALLERGIES No Known Allergies PHYSICAL EXAMINATION: BP 130/70 Pulse 61 Wt 213 lb (96.6kg) INDIVIDUAL TREATMENT PLAN Program Location: [facility] EXERCISE REASSESSMENT Current Exercise at Rehab: aerobic and resistance Treadmill METS : 2.2 Stepper METS : 3.5 Recumbent Bike METS: 6.5 RT Weight : 6 lbs (hand weights) Home Exercise: Yes Mode: cardioglyde Intensity: moderate Duration: twice a week Current Symptoms: Asymptomatic Education Completed: RPE, Equipment Orientation, Signs and Symptoms, Target Heart Rate Range, Hand Hygiene, Cleaning of Equipment, Warm Up/Cool Down, Safety Guidelines, Exercise Prescription, Exercise Considerations, Exercise Safety, Exercise Benefits EXERCISE INTERVENTION/PRESCRIP TION Aerobic: Yes Frequency: 3-5 Per Week Mode: Treadmill, Recumbent Stepper, Arm Ergometer, Recumbent Bike, Weights, Walking Intensity: moderate METS: 5-6 Workload: as tolerated RPE: 3-5 Initial Duration (minutes): 30 minutes Progression: 0.5 Mets Every 1-2 Weeks as Tolerated Resistance Training: yes (hand weights) WT Intensity: Weight to Have Local Muscle Fatigue in 10-12 Reps With 2-3 Sets Minutes per Week of Exercise : 150 Patient Understands Intervention: Needs Reinforcement EXERCISE GOAL Distance on 6 Min Walk Test : 955 Increase (more content not included)... Normal [facility] CNOVon 08-16-2023 [facility] Office Visit (BONNIE ) DINO BLANDON ([id number]) 1950 M Date Time Provider Department 08/16/23 11:00 AM CARDIAC VAS EXERCISE OTILIA NICOLE During your visit today, we recorded the following information about you: Pulse Blood pressure Weight 56/minute 142/72 96.6 kg Margot Richardson, REDD 08/16/2023 11:47 AM Addendum Cardiac Rehab exercise class Card[facility] Rehabilitation [facility] Supervising Physician: Derrell Diagnosis: Hx of cabg (primary encounter diagnosis) Phase: 2 Monitored: yes Session Number: 24 Patient negative for COVID exposure and symptoms. Today?s exercise session was comprised of a warm-up, aerobic conditioning phase, aerobic, cool down, and free weights and/or resistance machines. Patient tolerated prescribed exercise workload. Tele SB-SR PACs, Asymptomatic with ectopy. Vitals WNL for patient. No chest discomfort. No medication changes. This is a hospital based cardiac rehab program. Patient working towards exercise goals by increasing exercise frequency and/or intensity and/or duration. Patient working towards educational goals by attending education classes or receiving and reviewing educational materials with staff. Patient has verbalized understanding of Coronary Risk Factors education topic and the relation to disease management. Patient?s [facility] Exercise sessions will be scanned into IVDesk once it is completed. These can be viewed by going under the ?Scanned Documents? tab and looking for documents labeled ?Cardiac Rehabilitation.? [facility] Exercise session contains exercise data such as, but not limited to modality, intensity, duration and frequency of exercise, along with vital signs pre, during and post exercise and EKG rhythm strips. Margot Richardson RN Referring Provider: MARILYN DOVE [[id number]] Allergies As of Date: 08/16/2023 (No Known Allergies) Date Reviewed: 08/15/2023 Reviewed by: Sujey Funk MA - Fully Assessed Reason for Visit: Phase 2 Session [0138] Primary Visit Diagnosis:Hx of CABG [Z95.1] Prescriptions as of 08/16/2023 - atorvastatin (LIPITOR) 40 mg tablet Take 1 tablet by mouth daily at bedtime. - carvedilol (COREG) 12.5 mg tablet Take 1 tablet by mouth two times a day with meals. - glimepiride (AMARYL) 1 mg tablet Take 1 tablet by mouth daily with breakfast. - amLODIPine (NORVASC) 5 mg tablet Take 2 tablets by mouth once daily. - blood sugar diagnostic (ACCU-CHEK GUIDE TEST STRIPS) test strip Use as instructed twice daily - tamsulosin (FLOMAX) 0.4 mg Take 1 capsule by mouth daily at bedtime. - acetaminophen (TYLENOL) 325 mg tablet Take 2 tablets by mouth every 6 hours as needed for pain. - aspirin 81 mg chewable tablet 1 tablet by ORAL/FEEDING TUBE route once daily. - Lancets (ACCU-CHEK SOFTCLIX LANCETS) lancets Use as instructed twice daily Problem List As Of Date 08/16/2023 Noted Resolved Angina pectoris (HCC) [I20.9] 04/02/2023 04/13/2023 Essential hypertension [I10] 04/02/2023 Hyperlipidemia [E78.5] 04/04/2023 Controlled type 2 diabetes mellitus without com*04/04/2023 SOLIS (acute kidney injury) (HCC) [N17.9] 04/04/2023 Obesity, Class II, BMI 35-39.9 [E66.9] 04/05/2023 Coronary artery disease involving [place] benavidez*04/05/2023 On mechanically assisted ventilation (HCC) [Z99*04/09/2023 04/13/2023 Postoperative pain [G89.18] 04/09/2023 Pneumothorax on right [J93.9] 04/09/2023 Stress hyperglycemia [R73.9] 04/09/2023 04/22/2023 Hypotension [I95.9] 04/09/2023 04/10/2023 Bilateral atelectasis [J98.11] 04/09/2023 Hypoxemia [R09.02] 04/09/2023 04/22/2023 PAF (paroxysmal atrial fibrillation) (HCC) [I48*04/11/2023 04/22/2023 CKD (chronic kidney disease) [N18.9] 04/13/2023 Summary [Z91.199] 04/15/2023 04/24/2023 Postoperative atrial fibrillation (HCC) [I97.89*04/15/2023 Obesity, Class III, BMI >= 40 [E66.01] 04/15/2023 04/22/2023 Hyponatremia [E87.1] 04/20/2023 04/22/2023 Recurrent urinary tract infection [N39.0] 04/20/2023 Infection due to ESBL-producing Escherichia col*04/20/2023 Staphylococcus epidermidis bacteremia [R78.81, *04/21/2023 Surgical site infection [T81.49XA] 04/21/2023 Encounter for counseling for iytworhlb-eu-ncjsa* Encounter Status:Closed by MARGOT RICHARDSON on 08/16/23 [facility] CNOVon 08-15-2023 CNOV Office Visit (CPRMER ) DINO BLANDON ([id number]) 1950 M Date Time Provider Department 08/15/23 11:00 AM CARDIAC [facility]AS [facility]ERCISE [facility] During your visit today, we recorded the following information about you: Pulse Blood pressure Weight Height 58/minute 124/68 96.6 kg 1.638 m Alana Menon RN 08/15/2023 11:37 AM Signed Cardiac Rehab exercise class Cardiac Rehabilitation [facility] Supervising Physician: Marilyn Dove Diagnosis: Hx of cabg (primary encounter diagnosis) Phase: 2 Monitored: yes Session Number: 23 Patient negative for COVID exposure and symptoms. Today?s exercise session was comprised of a warm-up, aerobic conditioning phase, aerobic, cool down, and free weights and/or resistance machines. Patient tolerated prescribed exercise workload. Tele SR PVCs; asymptomatic with ectopic beats. Vitals WNL for patient. No chest discomfort. No medication changes. This is a hospital based cardiac rehab program. Patient working towards exercise goals by increasing exercise frequency and/or intensity and/or duration. Patient working towards educational goals by attending education classes or receiving and reviewing educational materials with staff. Patient has verbalized understanding of CAD Risk Factors education topic and the relation to disease management. Patient?s [facility] Exercise sessions will be scanned into IVDesk once it is completed. These can be viewed by going under the ?Scanned Documents? tab and looking for documents labeled ?Cardiac Rehabilitation.? [facility] Exercise session contains exercise data such as, but not limited to modality, intensity, duration and frequency of exercise, along with vital signs pre, during and post exercise and EKG rhythm strips. Alana Menon RN Referring Provider: MARILYN DOVE [[id number]] Allergies As of Date: 08/15/2023 (No Known Allergies) Date Reviewed: 07/03/2023 Reviewed by: Sujey Funk MA - Fully Assessed Reason for Visit: Phase 2 Session [3654] Primary Visit Diagnosis:Hx of CABG [Z95.1] Prescriptions as of 08/15/2023 - glimepiride (AMARYL) 1 mg tablet Take 1 tablet by mouth daily with breakfast. - carvedilol (COREG) 12.5 mg tablet Take 1 tablet by mouth two times a day with meals. - gabapentin (NEURONTIN) 100 mg capsule Take 1 capsule by mouth daily at bedtime for 14 days. - bumetanide (BUMEX) 1 mg tablet Take 1 tablet Saturday, Saturday and Saturday. - amLODIPine (NORVASC) 5 mg tablet Take 2 tablets by mouth once daily. - blood sugar diagnostic (ACCU-CHEK GUIDE TEST STRIPS) test strip Use as instructed twice daily - tamsulosin (FLOMAX) 0.4 mg Take 1 capsule by mouth daily at bedtime. - acetaminophen (TYLENOL) 325 mg tablet Take 2 tablets by mouth every 6 hours as needed for pain. - aspirin 81 mg chewable tablet 1 tablet by ORAL/FEEDING TUBE route once daily. - atorvastatin (LIPITOR) 40 mg tablet Take 1 tablet by mouth daily at bedtime. - Lancets (ACCU-CHEK SOFTCLIX LANCETS) lancets Use as instructed twice daily Problem List As Of Date 08/15/2023 Noted Resolved Angina pectoris (HCC) [I20.9] 04/02/2023 04/13/2023 Essential hypertension [I10] 04/02/2023 Hyperlipidemia [E78.5] 04/04/2023 Controlled type 2 diabetes mellitus without com*04/04/2023 SOLIS (acute kidney injury) (HCC) [N17.9] 04/04/2023 Obesity, Class II, BMI 35-39.9 [E66.9] 04/05/2023 Coronary artery disease involving [place] benavidez*04/05/2023 On mechanically assisted ventilation (HCC) [Z99*04/09/2023 04/13/2023 Postoperative pain [G89.18] 04/09/2023 Pneumothorax on right [J93.9] 04/09/2023 Stress hyperglycemia [R73.9] 04/09/2023 04/22/2023 Hypotension [I95.9] 04/09/2023 04/10/2023 Bilateral atelectasis [J98.11] 04/09/2023 Hypoxemia [R09.02] 04/09/2023 04/22/2023 PAF (paroxysmal atrial fibrillation) (HCC) [I48*04/11/2023 04/22/2023 CKD (chronic kidney disease) [N18.9] 04/13/2023 Summary [Z91.199] 04/15/2023 04/24/2023 Postoperative atrial fibrillation (HCC) [I97.89*04/15/2023 Obesity, Class III, BMI >= 40 [E66.01] 04/15/2023 04/22/2023 Hyponatremia [E87.1] 04/20/2023 04/22/2023 Recurrent urinary tract infection [N39.0] 04/20/2023 Infection due to ESBL-producing Escherichia col*04/20/2023 Staphylococcus epidermidis bacteremia [R78.81, *04/21/2023 Surgical site infection [T81.49XA] 04/21/2023 Encounter for counseling for pvofkwdrh-ej-lzdfw* Encounter Status:Closed by ALANA MENON on 08/15/23 [facility] CNOVkwadwo 08-13-2023 [facility] Office Visit (CPRMER ) DINO BLANDON ([id number]) 1950 M Date Time Provider Department 08/13/23 11:00 AM CARDIAC [facility] EXERCISE [facility] [place] During your visit today, we recorded the following information about you: Pulse Blood pressure Weight Height 64/minute 120/62 96.2 kg 1.638 m Alana Menon RN 08/13/2023 11:42 AM Signed Cardiac Rehab exercise class Cardiac Rehabilitation [facility] Supervising Physician: Marilyn Dove Diagnosis: Hx of cabg (primary encounter diagnosis) Phase: 2 Monitored: yes Session Number: 22 Patient negative for COVID exposure and symptoms. Today?s exercise session was comprised of a warm-up, aerobic conditioning phase, aerobic, cool down, and free weights and/or resistance machines. Patient tolerated prescribed exercise workload. Tele-SR-PAC/PVC; asymptomatic with ectopic beats. Vitals WNL for patient. No chest discomfort. No medication changes. This is a hospital based cardiac rehab program. Patient working towards exercise goals by increasing exercise frequency and/or intensity and/or duration. Patient working towards educational goals by attending education classes or receiving and reviewing educational materials with staff. Patient has verbalized understanding of CAD Risk Factors education topic and the relation to disease management. Patient?s [facility] Exercise sessions will be scanned into IVDesk once it is completed. These can be viewed by going under the ?Scanned Documents? tab and looking for documents labeled ?Cardiac Rehabilitation.? [facility] Exercise session contains exercise data such as, but not limited to modality, intensity, duration and frequency of exercise, along with vital signs pre, during and post exercise and EKG rhythm strips. Alana Menon RN Referring Provider: MARILYN DOVE [[id number]] Allergies As of Date: 08/13/2023 (No Known Allergies) Date Reviewed: 07/03/2023 Reviewed by: Sujey Funk MA - Fully Assessed Reason for Visit: Phase 2 Session [9896] Primary Visit Diagnosis:Hx of CABG [Z95.1] Prescriptions as of 08/13/2023 - glimepiride (AMARYL) 1 mg tablet Take 1 tablet by mouth daily with breakfast. - carvedilol (COREG) 12.5 mg tablet Take 1 tablet by mouth two times a day with meals. - gabapentin (NEURONTIN) 100 mg capsule Take 1 capsule by mouth daily at bedtime for 14 days. - bumetanide (BUMEX) 1 mg tablet Take 1 tablet Saturday, Saturday and Saturday. - amLODIPine (NORVASC) 5 mg tablet Take 2 tablets by mouth once daily. - blood sugar diagnostic (ACCU-CHEK GUIDE TEST STRIPS) test strip Use as instructed twice daily - tamsulosin (FLOMAX) 0.4 mg Take 1 capsule by mouth daily at bedtime. - acetaminophen (TYLENOL) 325 mg tablet Take 2 tablets by mouth every 6 hours as needed for pain. - aspirin 81 mg chewable tablet 1 tablet by ORAL/FEEDING TUBE route once daily. - atorvastatin (LIPITOR) 40 mg tablet Take 1 tablet by mouth daily at bedtime. - Lancets (ACCU-CHEK SOFTCLIX LANCETS) lancets Use as instructed twice daily Problem List As Of Date 08/13/2023 Noted Resolved Angina pectoris (HCC) [I20.9] 04/02/2023 04/13/2023 Essential hypertension [I10] 04/02/2023 Hyperlipidemia [E78.5] 04/04/2023 Controlled type 2 diabetes mellitus without com*04/04/2023 SOLIS (acute kidney injury) (HCC) [N17.9] 04/04/2023 Obesity, Class II, BMI 35-39.9 [E66.9] 04/05/2023 Coronary artery disease involving [place] benavidez*04/05/2023 On mechanically assisted ventilation (HCC) [Z99*04/09/2023 04/13/2023 Postoperative pain [G89.18] 04/09/2023 Pneumothorax on right [J93.9] 04/09/2023 Stress hyperglycemia [R73.9] 04/09/2023 04/22/2023 Hypotension [I95.9] 04/09/2023 04/10/2023 Bilateral atelectasis [J98.11] 04/09/2023 Hypoxemia [R09.02] 04/09/2023 04/22/2023 PAF (paroxysmal atrial fibrillation) ([facility]) [I48*04/11/2023 04/22/2023 CKD (chronic kidney disease) [N18.9] 04/13/2023 Summary [Z91.199] 04/15/2023 04/24/2023 Postoperative atrial fibrillation (HCC) [I97.89*04/15/2023 Obesity, Class III, BMI >= 40 [E66.01] 04/15/2023 04/22/2023 Hyponatremia [E87.1] 04/20/2023 04/22/2023 Recurrent urinary tract infection [N39.0] 04/20/2023 Infection due to ESBL-producing Escherichia col*04/20/2023 Staphylococcus epidermidis bacteremia [R78.81, *04/21/2023 Surgical site infection [T81.49XA] 04/21/2023 Encounter for counseling for zhjfuycxl-pn-dofmx* Encounter Status:Closed by ALANA MENON on 08/13/23 [facility] CNOVon 08-09-2023 CNOV Office Visit (CPRMER ) DINO BLANDON ([id number]) 1950 M Date Time Provider Department 08/09/23 11:00 AM CARDIAC VAS EXERCISE [facility] During your visit today, we recorded the following information about you: Pulse Blood pressure Weight Height 58/minute 140/82 96.6 kg 1.638 m Alana Menon RN 08/09/2023 11:30 AM Signed Cardiac Rehab exercise class Cardiac Rehabilitation [facility] Supervising Physician: Marilny Dove Diagnosis: Hx of cabg (primary encounter diagnosis) Phase: 2 Monitored: yes Session Number: 21 Patient negative for COVID exposure and symptoms. Today?s exercise session was comprised of a warm-up, aerobic conditioning phase, aerobic, cool down, and free weights and/or resistance machines. Patient tolerated prescribed exercise workload. Tele SB-SR-PVC; asymptomatic with ectopic beats. Vitals WNL for patient. No chest discomfort. No medication changes. This is a hospital based cardiac rehab program. Patient working towards exercise goals by increasing exercise frequency and/or intensity and/or duration. Patient working towards educational goals by attending education classes or receiving and reviewing educational materials with staff. Patient has verbalized understanding of Reading labels, Heart Healthy diet education topic and the relation to disease management. Patient?s [facility] Exercise sessions will be scanned into IVDesk once it is completed. These can be viewed by going under the ?Scanned Documents? tab and looking for documents labeled ?Cardiac Rehabilitation.? [facility] Exercise session contains exercise data such as, but not limited to modality, intensity, duration and frequency of exercise, along with vital signs pre, during and post exercise and EKG rhythm strips. Alana Menon RN Referring Provider: MARILYN DOVE [[id number]] Allergies As of Date: 08/09/2023 (No Known Allergies) Date Reviewed: 07/03/2023 Reviewed by: Sujey Funk MA - Fully Assessed Reason for Visit: Phase 2 Session [2094] Primary Visit Diagnosis:Hx of CABG [Z95.1] Prescriptions as of 08/09/2023 - glimepiride (AMARYL) 1 mg tablet Take 1 tablet by mouth daily with breakfast. - carvedilol (COREG) 12.5 mg tablet Take 1 tablet by mouth two times a day with meals. - gabapentin (NEURONTIN) 100 mg capsule Take 1 capsule by mouth daily at bedtime for 14 days. - bumetanide (BUMEX) 1 mg tablet Take 1 tablet Saturday, Saturday and Saturday. - amLODIPine (NORVASC) 5 mg tablet Take 2 tablets by mouth once daily. - blood sugar diagnostic (ACCU-CHEK GUIDE TEST STRIPS) test strip Use as instructed twice daily - tamsulosin (FLOMAX) 0.4 mg Take 1 capsule by mouth daily at bedtime. - acetaminophen (TYLENOL) 325 mg tablet Take 2 tablets by mouth every 6 hours as needed for pain. - aspirin 81 mg chewable tablet 1 tablet by ORAL/FEEDING TUBE route once daily. - atorvastatin (LIPITOR) 40 mg tablet Take 1 tablet by mouth daily at bedtime. - Lancets (ACCU-CHEK SOFTCLIX LANCETS) lancets Use as instructed twice daily Problem List As Of Date 08/09/2023 Noted Resolved Angina pectoris (HCC) [I20.9] 04/02/2023 04/13/2023 Essential hypertension [I10] 04/02/2023 Hyperlipidemia [E78.5] 04/04/2023 Controlled type 2 diabetes mellitus without com*04/04/2023 SOLIS (acute kidney injury) (HCC) [N17.9] 04/04/2023 Obesity, Class II, BMI 35-39.9 [E66.9] 04/05/2023 Coronary artery disease involving [place] benavidez*04/05/2023 On mechanically assisted ventilation (HCC) [Z99*04/09/2023 04/13/2023 Postoperative pain [G89.18] 04/09/2023 Pneumothorax on right [J93.9] 04/09/2023 Stress hyperglycemia [R73.9] 04/09/2023 04/22/2023 Hypotension [I95.9] 04/09/2023 04/10/2023 Bilateral atelectasis [J98.11] 04/09/2023 Hypoxemia [R09.02] 04/09/2023 04/22/2023 PAF (paroxysmal atrial fibrillation) (HCC) [I48*04/11/2023 04/22/2023 CKD (chronic kidney disease) [N18.9] 04/13/2023 Summary [Z91.199] 04/15/2023 04/24/2023 Postoperative atrial fibrillation (HCC) [I97.89*04/15/2023 Obesity, Class III, BMI >= 40 [E66.01] 04/15/2023 04/22/2023 Hyponatremia [E87.1] 04/20/2023 04/22/2023 Recurrent urinary tract infection [N39.0] 04/20/2023 Infection due to ESBL-producing Escherichia col*04/20/2023 Staphylococcus epidermidis bacteremia [R78.81, *04/21/2023 Surgical site infection [T81.49XA] 04/21/2023 Encounter for counseling for zujfuvhex-uz-qivhs* Encounter Status:Closed by ALANA MENON on 08/09/23 [facility] CNOVon 08-08-2023 [facility] Office Visit (BONNIE ) DINO BLANDON ([id number]) 1950 [place] Date Time Provider Department 08/08/23 11:00 AM CARDIAC VASC EXERCISE OTILIA NICOLE During your visit today, we recorded the following information about you: Pulse Blood pressure Weight Height 63/minute 130/82 96.6 kg 1.638 m Alana Menon RN 08/08/2023 11:41 AM Signed Cardiac Rehab exercise class Cardiac Rehabilitation [facility] Supervising Physician: aMrilyn Dove Diagnosis: Hx of cabg (primary encounter diagnosis) Phase: 2 Monitored: yes Session Number: 20 Patient negative for COVID exposure and symptoms. Today?s exercise session was comprised of a warm-up, aerobic conditioning phase, aerobic, cool down, and free weights and/or resistance machines. Patient tolerated prescribed exercise workload. Tele SR-PVC; asymptomatic with ectopic beats. Vitals WNL for patient. No chest discomfort. No medication changes. This is a hospital based cardiac rehab program. Patient working towards exercise goals by increasing exercise frequency and/or intensity and/or duration. Patient working towards educational goals by attending education classes or receiving and reviewing educational materials with staff. Patient has verbalized understanding of Reading labels, heart healthy eating education topic and the relation to disease management. Patient?s [facility] Exercise sessions will be scanned into IVDesk once it is completed. These can be viewed by going under the ?Scanned Documents? tab and looking for documents labeled ?Cardiac Rehabilitation.? [facility] Exercise session contains exercise data such as, but not limited to modality, intensity, duration and frequency of exercise, along with vital signs pre, during and post exercise and EKG rhythm strips. Alana Menon RN Referring Provider: MARILYN DOVE [[id number]] Allergies As of Date: 08/08/2023 (No Known Allergies) Date Reviewed: 07/03/2023 Reviewed by: Sujey Funk MA - Fully Assessed Reason for Visit: Phase 2 Session [9250] Primary Visit Diagnosis:Hx of CABG [Z95.1] Prescriptions as of 08/08/2023 - glimepiride (AMARYL) 1 mg tablet Take 1 tablet by mouth daily with breakfast. - carvedilol (COREG) 12.5 mg tablet Take 1 tablet by mouth two times a day with meals. - gabapentin (NEURONTIN) 100 mg capsule Take 1 capsule by mouth daily at bedtime for 14 days. - bumetanide (BUMEX) 1 mg tablet Take 1 tablet Saturday, Saturday and Saturday. - amLODIPine (NORVASC) 5 mg tablet Take 2 tablets by mouth once daily. - blood sugar diagnostic (ACCU-CHEK GUIDE TEST STRIPS) test strip Use as instructed twice daily - tamsulosin (FLOMAX) 0.4 mg Take 1 capsule by mouth daily at bedtime. - acetaminophen (TYLENOL) 325 mg tablet Take 2 tablets by mouth every 6 hours as needed for pain. - aspirin 81 mg chewable tablet 1 tablet by ORAL/FEEDING TUBE route once daily. - atorvastatin (LIPITOR) 40 mg tablet Take 1 tablet by mouth daily at bedtime. - Lancets (ACCU-CHEK SOFTCLIX LANCETS) lancets Use as instructed twice daily Problem List As Of Date 08/08/2023 Noted Resolved Angina pectoris (HCC) [I20.9] 04/02/2023 04/13/2023 Essential hypertension [I10] 04/02/2023 Hyperlipidemia [E78.5] 04/04/2023 Controlled type 2 diabetes mellitus without com*04/04/2023 SOLIS (acute kidney injury) (HCC) [N17.9] 04/04/2023 Obesity, Class II, BMI 35-39.9 [E66.9] 04/05/2023 Coronary artery disease involving [place] benavidez*04/05/2023 On mechanically assisted ventilation (HCC) [Z99*04/09/2023 04/13/2023 Postoperative pain [G89.18] 04/09/2023 Pneumothorax on right [J93.9] 04/09/2023 Stress hyperglycemia [R73.9] 04/09/2023 04/22/2023 Hypotension [I95.9] 04/09/2023 04/10/2023 Bilateral atelectasis [J98.11] 04/09/2023 Hypoxemia [R09.02] 04/09/2023 04/22/2023 PAF (paroxysmal atrial fibrillation) (HCC) [I48*04/11/2023 04/22/2023 CKD (chronic kidney disease) [N18.9] 04/13/2023 Summary [Z91.199] 04/15/2023 04/24/2023 Postoperative atrial fibrillation (HCC) [I97.89*04/15/2023 Obesity, Class III, BMI >= 40 [E66.01] 04/15/2023 04/22/2023 Hyponatremia [E87.1] 04/20/2023 04/22/2023 Recurrent urinary tract infection [N39.0] 04/20/2023 Infection due to ESBL-producing Escherichia col*04/20/2023 Staphylococcus epidermidis bacteremia [R78.81, *04/21/2023 Surgical site infection [T81.49XA] 04/21/2023 Encounter for counseling for bibiozgbj-jq-pxooo* Encounter Status:Closed by ALANA MENON on 08/08/23 [facility] CNOVon 08-02-2023 CNOV Office Visit (CPRMER ) DINO BLANDON ([id number]) 1950 M Date Time Provider Department 08/02/23 11:00 AM CARDIAC VAS EXERCISE [facility] During your visit today, we recorded the following information about you: Pulse Blood pressure Weight 61/minute 140/78 96.2 kg Adelia Arcos RN 08/02/2023 11:31 AM Signed Cardiac Rehab exercise class Cardiac Rehabilitation [facility] Supervising Physician: Dr. Dove Diagnosis: Hx of cabg (primary encounter diagnosis) Phase: 2 Monitored: yes Session Number: 19 Patient negative for COVID exposure and symptoms. Today?s exercise session was comprised of a warm-up, aerobic conditioning phase, aerobic, cool down, and free weights and/or resistance machines. Patient tolerated prescribed exercise workload. Tele SR PVC. Vitals WNL for patient. No chest discomfort. No medication changes. This is a hospital based cardiac rehab program. Patient working towards exercise goals by increasing exercise frequency and/or intensity and/or duration. Patient working towards educational goals by attending education classes or receiving and reviewing educational materials with staff. Patient?s [facility] Exercise sessions will be scanned into IVDesk once it is completed. These can be viewed by going under the ?Scanned Documents? tab and looking for documents labeled ?Cardiac Rehabilitation.? [facility] Exercise session contains exercise data such as, but not limited to modality, intensity, duration and frequency of exercise, along with vital signs pre, during and post exercise and EKG rhythm strips. Adelia Arcos RN Referring Provider: MARILYN DOVE [[id number]] Allergies As of Date: 08/02/2023 (No Known Allergies) Date Reviewed: 07/03/2023 Reviewed by: Sujey Funk MA - Fully Assessed Reason for Visit: Phase 2 Session [2174] Primary Visit Diagnosis:Hx of CABG [Z95.1] Prescriptions as of 08/02/2023 - glimepiride (AMARYL) 1 mg tablet Take 1 tablet by mouth daily with breakfast. - carvedilol (COREG) 12.5 mg tablet Take 1 tablet by mouth two times a day with meals. - gabapentin (NEURONTIN) 100 mg capsule Take 1 capsule by mouth daily at bedtime for 14 days. - bumetanide (BUMEX) 1 mg tablet Take 1 tablet Saturday, Saturday and Saturday. - amLODIPine (NORVASC) 5 mg tablet Take 2 tablets by mouth once daily. - blood sugar diagnostic (ACCU-CHEK GUIDE TEST STRIPS) test strip Use as instructed twice daily - tamsulosin (FLOMAX) 0.4 mg Take 1 capsule by mouth daily at bedtime. - acetaminophen (TYLENOL) 325 mg tablet Take 2 tablets by mouth every 6 hours as needed for pain. - aspirin 81 mg chewable tablet 1 tablet by ORAL/FEEDING TUBE route once daily. - atorvastatin (LIPITOR) 40 mg tablet Take 1 tablet by mouth daily at bedtime. - Lancets (ACCU-CHEK SOFTCLIX LANCETS) lancets Use as instructed twice daily Problem List As Of Date 08/02/2023 Noted Resolved Angina pectoris (HCC) [I20.9] 04/02/2023 04/13/2023 Essential hypertension [I10] 04/02/2023 Hyperlipidemia [E78.5] 04/04/2023 Controlled type 2 diabetes mellitus without com*04/04/2023 SOLIS (acute kidney injury) (HCC) [N17.9] 04/04/2023 Obesity, Class II, BMI 35-39.9 [E66.9] 04/05/2023 Coronary artery disease involving [place] benavidez*04/05/2023 On mechanically assisted ventilation (HCC) [Z99*04/09/2023 04/13/2023 Postoperative pain [G89.18] 04/09/2023 Pneumothorax on right [J93.9] 04/09/2023 Stress hyperglycemia [R73.9] 04/09/2023 04/22/2023 Hypotension [I95.9] 04/09/2023 04/10/2023 Bilateral atelectasis [J98.11] 04/09/2023 Hypoxemia [R09.02] 04/09/2023 04/22/2023 PAF (paroxysmal atrial fibrillation) (HCC) [I48*04/11/2023 04/22/2023 CKD (chronic kidney disease) [N18.9] 04/13/2023 Summary [Z91.199] 04/15/2023 04/24/2023 Postoperative atrial fibrillation (HCC) [I97.89*04/15/2023 Obesity, Class III, BMI >= 40 [E66.01] 04/15/2023 04/22/2023 Hyponatremia [E87.1] 04/20/2023 04/22/2023 Recurrent urinary tract infection [N39.0] 04/20/2023 Infection due to ESBL-producing Escherichia col*04/20/2023 Staphylococcus epidermidis bacteremia [R78.81, *04/21/2023 Surgical site infection [T81.49XA] 04/21/2023 Encounter for counseling for mfxhwzdhb-zl-jsjfh* Encounter Status:Closed by ADELIA ARCOS on 08/02/23 [facility] Cornelio 08-01-2023 LILY Office Visit (BONNIE ) DINO BLANDON ([id number]) 1950 M Date Time Provider Department 08/01/23 11:00 AM CARDIAC VASC EXERCISE [facility] During your visit today, we recorded the following information about you: Pulse Blood pressure Weight Height 60/minute 130/68 96.2 kg 1.638 m Alana Menon RN 08/01/2023 11:45 AM Signed Cardiac Rehab exercise class [facility] Supervising Physician: Marilyn Dove Diagnosis: Hx of cabg (primary encounter diagnosis) Phase: 2 Monitored: yes Session Number: 18 Patient negative for COVID exposure and symptoms. Today?s exercise session was comprised of a warm-up, aerobic conditioning phase, aerobic, cool down, and free weights and/or resistance machines. Patient tolerated prescribed exercise workload. Tele SB-SR-PACs; asymptomatic with ectopic beats. Vitals WNL for patient. No chest discomfort. No medication changes. This is a hospital based cardiac rehab program. Patient working towards exercise goals by increasing exercise frequency and/or intensity and/or duration. Patient working towards educational goals by attending education classes or receiving and reviewing educational materials with staff. Patient?s [facility] Exercise sessions will be scanned into IVDesk once it is completed. These can be viewed by going under the ?Scanned Documents? tab and looking for documents labeled ?Cardiac Rehabilitation.? [facility] Exercise session contains exercise data such as, but not limited to modality, intensity, duration and frequency of exercise, along with vital signs pre, during and post exercise and EKG rhythm strips. Alana Menon RN Referring Provider: MARILYN DOVE [[id number]] Allergies As of Date: 08/01/2023 (No Known Allergies) Date Reviewed: 07/03/2023 Reviewed by: Sujey Funk MA - Fully Assessed Reason for Visit: Phase 2 Session [5139] Primary Visit Diagnosis:Hx of CABG [Z95.1] Prescriptions as of 08/01/2023 - glimepiride (AMARYL) 1 mg tablet Take 1 tablet by mouth daily with breakfast. - carvedilol (COREG) 12.5 mg tablet Take 1 tablet by mouth two times a day with meals. - gabapentin (NEURONTIN) 100 mg capsule Take 1 capsule by mouth daily at bedtime for 14 days. - bumetanide (BUMEX) 1 mg tablet Take 1 tablet Saturday, Saturday and Saturday. - amLODIPine (NORVASC) 5 mg tablet Take 2 tablets by mouth once daily. - blood sugar diagnostic (ACCU-CHEK GUIDE TEST STRIPS) test strip Use as instructed twice daily - tamsulosin (FLOMAX) 0.4 mg Take 1 capsule by mouth daily at bedtime. - acetaminophen (TYLENOL) 325 mg tablet Take 2 tablets by mouth every 6 hours as needed for pain. - aspirin 81 mg chewable tablet 1 tablet by ORAL/FEEDING TUBE route once daily. - atorvastatin (LIPITOR) 40 mg tablet Take 1 tablet by mouth daily at bedtime. - Lancets (ACCU-CHEK SOFTCLIX LANCETS) lancets Use as instructed twice daily Problem List As Of Date 08/01/2023 Noted Resolved Angina pectoris (HCC) [I20.9] 04/02/2023 04/13/2023 Essential hypertension [I10] 04/02/2023 Hyperlipidemia [E78.5] 04/04/2023 Controlled type 2 diabetes mellitus without com*04/04/2023 SOLIS (acute kidney injury) (HCC) [N17.9] 04/04/2023 Obesity, Class II, BMI 35-39.9 [E66.9] 04/05/2023 Coronary artery disease involving [place] benavidez*04/05/2023 On mechanically assisted ventilation (HCC) [Z99*04/09/2023 04/13/2023 Postoperative pain [G89.18] 04/09/2023 Pneumothorax on right [J93.9] 04/09/2023 Stress hyperglycemia [R73.9] 04/09/2023 04/22/2023 Hypotension [I95.9] 04/09/2023 04/10/2023 Bilateral atelectasis [J98.11] 04/09/2023 Hypoxemia [R09.02] 04/09/2023 04/22/2023 PAF (paroxysmal atrial fibrillation) (HCC) [I48*04/11/2023 04/22/2023 CKD (chronic kidney disease) [N18.9] 04/13/2023 Summary [Z91.199] 04/15/2023 04/24/2023 Postoperative atrial fibrillation (HCC) [I97.89*04/15/2023 Obesity, Class III, BMI >= 40 [E66.01] 04/15/2023 04/22/2023 Hyponatremia [E87.1] 04/20/2023 04/22/2023 Recurrent urinary tract infection [N39.0] 04/20/2023 Infection due to ESBL-producing Escherichia col*04/20/2023 Staphylococcus epidermidis bacteremia [R78.81, *04/21/2023 Surgical site infection [T81.49XA] 04/21/2023 Encounter for counseling for toucylomm-ge-qitnn* Encounter Status:Closed by ALANA MENON on 08/01/23 [facility] CNOVon 07-25-2023 CNOV Office Visit (CPRMER ) DINO BLANDON ([id number]) 1950 M Date Time Provider Department 07/25/23 11:00 AM CARDIAC VAS EXERCISE [facility] During your visit today, we recorded the following information about you: Pulse Blood pressure Weight Height 57/minute 146/76 96.2 kg 1.638 m Alana Menon RN 07/25/2023 11:27 AM Signed Cardiac Rehab exercise class [facility] Supervising Physician: Marilyn Dove Diagnosis: Hx of cabg (primary encounter diagnosis) Phase: 2 Monitored: yes Session Number: 17 Patient negative for COVID exposure and symptoms. Today?s exercise session was comprised of a warm-up, aerobic conditioning phase, aerobic, cool down, and free weights and/or resistance machines. Patient tolerated prescribed exercise workload. Tele SB-SR- without ectopic beats. Vitals WNL for patient. No chest discomfort. No medication changes. This is a hospital based cardiac rehab program. Patient working towards exercise goals by increasing exercise frequency and/or intensity and/or duration. Patient working towards educational goals by attending education classes or receiving and reviewing educational materials with staff. Patient has verbalized understanding of [employer] Exercise Principles education topic and the relation to disease management. Patient?s [facility] Exercise sessions will be scanned into IVDesk once it is completed. These can be viewed by going under the ?Scanned Documents? tab and looking for documents labeled ?Cardiac Rehabilitation.? [facility] Exercise session contains exercise data such as, but not limited to modality, intensity, duration and frequency of exercise, along with vital signs pre, during and post exercise and EKG rhythm strips. Alana Menon RN Referring Provider: MARILYN DOVE [[id number]] Allergies As of Date: 07/25/2023 (No Known Allergies) Date Reviewed: 07/03/2023 Reviewed by: Sujey Funk MA - Fully Assessed Reason for Visit: Phase 2 Session [8884] Primary Visit Diagnosis:Hx of CABG [Z95.1] Prescriptions as of 07/25/2023 - glimepiride (AMARYL) 1 mg tablet Take 1 tablet by mouth daily with breakfast. - carvedilol (COREG) 12.5 mg tablet Take 1 tablet by mouth two times a day with meals. - gabapentin (NEURONTIN) 100 mg capsule Take 1 capsule by mouth daily at bedtime for 14 days. - bumetanide (BUMEX) 1 mg tablet Take 1 tablet Saturday, Saturday and Saturday. - amLODIPine (NORVASC) 5 mg tablet Take 2 tablets by mouth once daily. - blood sugar diagnostic (ACCU-CHEK GUIDE TEST STRIPS) test strip Use as instructed twice daily - tamsulosin (FLOMAX) 0.4 mg Take 1 capsule by mouth daily at bedtime. - acetaminophen (TYLENOL) 325 mg tablet Take 2 tablets by mouth every 6 hours as needed for pain. - aspirin 81 mg chewable tablet 1 tablet by ORAL/FEEDING TUBE route once daily. - atorvastatin (LIPITOR) 40 mg tablet Take 1 tablet by mouth daily at bedtime. - Lancets (ACCU-CHEK SOFTCLIX LANCETS) lancets Use as instructed twice daily Problem List As Of Date 07/25/2023 Noted Resolved Angina pectoris (HCC) [I20.9] 04/02/2023 04/13/2023 Essential hypertension [I10] 04/02/2023 Hyperlipidemia [E78.5] 04/04/2023 Controlled type 2 diabetes mellitus without com*04/04/2023 SOLIS (acute kidney injury) (HCC) [N17.9] 04/04/2023 Obesity, Class II, BMI 35-39.9 [E66.9] 04/05/2023 Coronary artery disease involving [place] benavidez*04/05/2023 On mechanically assisted ventilation (HCC) [Z99*04/09/2023 04/13/2023 Postoperative pain [G89.18] 04/09/2023 Pneumothorax on right [J93.9] 04/09/2023 Stress hyperglycemia [R73.9] 04/09/2023 04/22/2023 Hypotension [I95.9] 04/09/2023 04/10/2023 Bilateral atelectasis [J98.11] 04/09/2023 Hypoxemia [R09.02] 04/09/2023 04/22/2023 PAF (paroxysmal atrial fibrillation) (HCC) [I48*04/11/2023 04/22/2023 CKD (chronic kidney disease) [N18.9] 04/13/2023 Summary [Z91.199] 04/15/2023 04/24/2023 Postoperative atrial fibrillation (HCC) [I97.89*04/15/2023 Obesity, Class III, BMI >= 40 [E66.01] 04/15/2023 04/22/2023 Hyponatremia [E87.1] 04/20/2023 04/22/2023 Recurrent urinary tract infection [N39.0] 04/20/2023 Infection due to ESBL-producing Escherichia col*04/20/2023 Staphylococcus epidermidis bacteremia [R78.81, *04/21/2023 Surgical site infection [T81.49XA] 04/21/2023 Encounter for counseling for akymrqktu-nb-dauvp* Encounter Status:Closed by ALANA MENON on 07/25/23 [facility] CNOVkwadwo 07-23-2023 CNOV Office Visit (CPRMER ) DINO BLANDON ([id number]) 1950 Date Time Provider Department 07/23/23 11:00 AM CARDIAC VASC [facility] CPRMER During your visit today, we recorded the following information about you: Pulse Blood pressure Weight Height 58/minute 112/60 96.2 kg 1.638 m Alana Menon RN 07/23/2023 11:30 AM Signed Cardiac Rehab exercise class Cardiac Rehabilitation [facility] Supervising Physician: Marilyn Dove Diagnosis: Hx of cabg (primary encounter diagnosis) Phase: 2 Monitored: yes Session Number: 16 Patient negative for COVID exposure and symptoms. Today?s exercise session was comprised of a warm-up, aerobic conditioning phase, aerobic, cool down, and free weights and/or resistance machines. Patient tolerated prescribed exercise workload. Tele SB-SR-PAC PVC; asymptomatic with ectopic beats. Vitals WNL for patient. No chest discomfort. No medication changes. This is a hospital based cardiac rehab program. Patient working towards exercise goals by increasing exercise frequency and/or intensity and/or duration. Patient working towards educational goals by attending education classes or receiving and reviewing educational materials with staff. Patient has verbalized understanding of [facility] Exercise princiiples education topic and the relation to disease management. Patient?s [facility] Exercise sessions will be scanned into IVDesk once it is completed. These can be viewed by going under the ?Scanned Documents? tab and looking for documents labeled ?Cardiac Rehabilitation.? [facility] Exercise session contains exercise data such as, but not limited to modality, intensity, duration and frequency of exercise, along with vital signs pre, during and post exercise and EKG rhythm strips. REDD Stewart Hope, RN 08/08/2023 7:36 AM Signed 60 DAY Assessment for Cardiac Rehab Dino Blandon 07/23/2023 CHIEF COMPLAINT: Dino Blandon is a 73 year old male seen today. Patient presents with: Phase 2 Session HISTORY OF PRESENT ILLNESS: tele SB SR occ PAC PVC PAST MEDICAL HISTORY Diagnosis Date Chronic kidney disease, stage III (moderate) (HCC) Essential hypertension Pneumothorax on right PAST SURGICAL HISTORY Procedure Laterality Date CABG (3) VEIN GRAFTS AND ARTERIAL GRAFT(S) 04/09/2023 (RODARTE-LAD / SVG-RAMUS / SVG-RC) Social History Tobacco Use Smoking status: Never Smokeless tobacco: Never Vaping Use Vaping Use: Never used Alcohol use: Never Drug use: Never FAMILY HISTORY Problem Relation Age of Onset other (Myocardial infarction) Mother Diabetes Mother other (CABG) Brother Heart Failure Brother Heart disease Brother PPM amnd fabian replacement CURRENT MEDS: Current Outpatient Medications Medication Sig glimepiride (AMARYL) 1 mg tablet Take 1 tablet by mouth daily with breakfast. carvedilol (COREG) 12.5 mg tablet Take 1 tablet by mouth two times a day with meals. gabapentin (NEURONTIN) 100 mg capsule Take 1 capsule by mouth daily at bedtime for 14 days. bumetanide (BUMEX) 1 mg tablet Take 1 tablet Saturday, Saturday and Saturday. (Patient not taking: Reported on 07/03/2023) amLODIPine (NORVASC) 5 mg tablet Take 2 tablets by mouth once daily. blood sugar diagnostic (ACCU-CHEK GUIDE TEST STRIPS) test strip Use as instructed twice daily tamsulosin (FLOMAX) 0.4 mg Take 1 capsule by mouth daily at bedtime. acetaminophen (TYLENOL) 325 mg tablet Take 2 tablets by mouth every 6 hours as needed for pain. aspirin 81 mg chewable tablet 1 tablet by ORAL/FEEDING TUBE route once daily. atorvastatin (LIPITOR) 40 mg tablet Take 1 tablet by mouth daily at bedtime. Lancets (ACCU-CHEK SOFTCLIX LANCETS) lancets Use as instructed twice daily No current facility-administered medications for this visit. ALLERGIES No Known Allergies PHYSICAL EXAMINATION: BP 112/60 Pulse 58 Ht 5' 4.5 (1.64m) Wt 212 lb (96.2kg) BMI 35.84 kg/(m2). INDIVIDUAL TREATMENT PLAN Program Location: [facility] EXERCISE REASSESSMENT Current Exercise at Rehab: SB SR PAC PVC rare HR 49 Treadmill METS : 2.2 Stepper METS : 4.9 Recumbent Bike METS: 5.7 RT Weight : (3# HW) Home Exercise: Yes Mode: cardioglyde Intensity: low Duration: 15-20 min 2x week Current Symptoms: Asymptomatic Education Completed: RPE, Equipment Orientation, Signs and Symptoms, Target Heart Rate Range, Hand Hygiene, Cleaning of Equipment, Warm Up/Cool Down, Safety Guidelines, Exercise Prescription, Exercise Considerations, Equipment orientation, Exercise Safety, Exercise Benefits EXERCISE INTERVENTION/PRESCRIP TION Exercise Prescription: aerobic/resistance 3x week METS: initial MET goal 7-8 Workload: (increase as tolerated) RPE: 4-6 Initial Duration (minutes): 40 minutes Progression: 0.5 Mets Every 1-2 Weeks as Tolerated WT Intensity: Weight to Have Lo (more content not included)... Normal [facility] CNOVon 07-19-2023 CN Office Visit (CPRMER ) DINO BLANDON ([id number]) 1950 M Date Time Provider Department 07/19/23 11:00 AM CARDIAC VAS EXERCISE [facility] During your visit today, we recorded the following information about you: Pulse Blood pressure Weight 58/minute 144/78 95.3 kg Margot Richardson RN 07/19/2023 11:40 AM Addendum Cardiac Rehab exercise class Card[facility] Rehabilitation [facility] Supervising Physician: Derrell Diagnosis: Hx of cabg (primary encounter diagnosis) Phase: 2 Monitored: yes Session Number: 15 Patient negative for COVID exposure and symptoms. Today?s exercise session was comprised of a warm-up, aerobic conditioning phase, aerobic, cool down, and free weights and/or resistance machines. Patient tolerated prescribed exercise workload. Tele SB-SR without ectopic beats. Vitals WNL for patient. No chest discomfort. No medication changes. This is a hospital based cardiac rehab program. Patient working towards exercise goals by increasing exercise frequency and/or intensity and/or duration. Patient working towards educational goals by attending education classes or receiving and reviewing educational materials with staff. Patient has verbalized understanding of Fats, Friend or Foe education topic and the relation to disease management. Patient?s [facility] Exercise sessions will be scanned into IVDesk once it is completed. These can be viewed by going under the ?Scanned Documents? tab and looking for documents labeled ?Cardiac Rehabilitation.? [facility] Exercise session contains exercise data such as, but not limited to modality, intensity, duration and frequency of exercise, along with vital signs pre, during and post exercise and EKG rhythm strips. Margot Richardson RN Referring Provider: MARILYN DOVE [[id number]] Allergies As of Date: 07/19/2023 (No Known Allergies) Date Reviewed: 07/03/2023 Reviewed by: Sujey Funk MA - Fully Assessed Reason for Visit: Phase 2 Session [3654] Primary Visit Diagnosis:Hx of CABG [Z95.1] Prescriptions as of 07/19/2023 - gabapentin (NEURONTIN) 100 mg capsule Take 1 capsule by mouth daily at bedtime for 14 days. - bumetanide (BUMEX) 1 mg tablet Take 1 tablet Saturday, Saturday and Saturday. - amLODIPine (NORVASC) 5 mg tablet Take 2 tablets by mouth once daily. - blood sugar diagnostic (ACCU-CHEK GUIDE TEST STRIPS) test strip Use as instructed twice daily - tamsulosin (FLOMAX) 0.4 mg Take 1 capsule by mouth daily at bedtime. - acetaminophen (TYLENOL) 325 mg tablet Take 2 tablets by mouth every 6 hours as needed for pain. - aspirin 81 mg chewable tablet 1 tablet by ORAL/FEEDING TUBE route once daily. - atorvastatin (LIPITOR) 40 mg tablet Take 1 tablet by mouth daily at bedtime. - carvedilol (COREG) 12.5 mg tablet Take 1 tablet by mouth twice daily with meals. - glimepiride (AMARYL) 1 mg tablet Take 1 tablet by mouth daily with breakfast. - Lancets (ACCU-CHEK SOFTCLIX LANCETS) lancets Use as instructed twice daily Problem List As Of Date 07/19/2023 Noted Resolved Angina pectoris (HCC) [I20.9] 04/02/2023 04/13/2023 Essential hypertension [I10] 04/02/2023 Hyperlipidemia [E78.5] 04/04/2023 Controlled type 2 diabetes mellitus without com*04/04/2023 SOLIS (acute kidney injury) (HCC) [N17.9] 04/04/2023 Obesity, Class II, BMI 35-39.9 [E66.9] 04/05/2023 Coronary artery disease involving [place] benavidez*04/05/2023 On mechanically assisted ventilation (HCC) [Z99*04/09/2023 04/13/2023 Postoperative pain [G89.18] 04/09/2023 Pneumothorax on right [J93.9] 04/09/2023 Stress hyperglycemia [R73.9] 04/09/2023 04/22/2023 Hypotension [I95.9] 04/09/2023 04/10/2023 Bilateral atelectasis [J98.11] 04/09/2023 Hypoxemia [R09.02] 04/09/2023 04/22/2023 PAF (paroxysmal atrial fibrillation) (HCC) [I48*04/11/2023 04/22/2023 CKD (chronic kidney disease) [N18.9] 04/13/2023 Summary [Z91.199] 04/15/2023 04/24/2023 Postoperative atrial fibrillation (HCC) [I97.89*04/15/2023 Obesity, Class III, BMI >= 40 [E66.01] 04/15/2023 04/22/2023 Hyponatremia [E87.1] 04/20/2023 04/22/2023 Recurrent urinary tract infection [N39.0] 04/20/2023 Infection due to ESBL-producing Escherichia col*04/20/2023 Staphylococcus epidermidis bacteremia [R78.81, *04/21/2023 Surgical site infection [T81.49XA] 04/21/2023 Encounter for counseling for hlbhigxww-oo-xhsxr* Encounter Status:Closed by MARGOT RICHARDSON on 07/19/23 [facility] Cornelio 07-18-2023 [facility] Office Visit (CPRMER ) DINO BLANDON ([id number]) 1950 M Date Time Provider Department 07/18/23 11:00 AM CARDIAC VAS EXERCISE [facility] During your visit today, we recorded the following information about you: Pulse Blood pressure Weight 49/minute 120/80 95.7 kg Carmencita Wolfe, REDD 07/18/2023 11:40 AM Signed Cardiac Rehab exercise class Card[facility] Rehabilitation [facility] Supervising Physician: Marilyn Dove Diagnosis: Hx of cabg (primary encounter diagnosis) Phase: 2 Monitored: yes Session Number: 14 Patient negative for COVID exposure and symptoms. Today?s exercise session was comprised of a warm-up, aerobic conditioning phase, aerobic, cool down, and free weights and/or resistance machines. Patient tolerated prescribed exercise workload. Tele NSR with first degree AV block and occasional PACs. Vitals WNL for patient. No chest discomfort. No medication changes. This is a hospital based cardiac rehab program. Patient working towards exercise goals by increasing exercise frequency and/or intensity and/or duration. Patient working towards educational goals by attending education classes or receiving and reviewing educational materials with staff. Patient has verbalized understanding of Fats: Friend or Foe education topic and the relation to disease management. Patient?s [facility] Exercise sessions will be scanned into IVDesk once it is completed. These can be viewed by going under the ?Scanned Documents? tab and looking for documents labeled ?Cardiac Rehabilitation.? [facility] Exercise session contains exercise data such as, but not limited to modality, intensity, duration and frequency of exercise, along with vital signs pre, during and post exercise and EKG rhythm strips. Carmencita Wolfe RN Referring Provider: MARILYN DOVE [[id number]] Allergies As of Date: 07/18/2023 (No Known Allergies) Date Reviewed: 07/03/2023 Reviewed by: Sujey Funk MA - Fully Assessed Reason for Visit: Phase 2 Session [3082] Primary Visit Diagnosis:Hx of CABG [Z95.1] Prescriptions as of 07/18/2023 - gabapentin (NEURONTIN) 100 mg capsule Take 1 capsule by mouth daily at bedtime for 14 days. - bumetanide (BUMEX) 1 mg tablet Take 1 tablet Saturday, Saturday and Saturday. - amLODIPine (NORVASC) 5 mg tablet Take 2 tablets by mouth once daily. - blood sugar diagnostic (ACCU-CHEK GUIDE TEST STRIPS) test strip Use as instructed twice daily - tamsulosin (FLOMAX) 0.4 mg Take 1 capsule by mouth daily at bedtime. - acetaminophen (TYLENOL) 325 mg tablet Take 2 tablets by mouth every 6 hours as needed for pain. - aspirin 81 mg chewable tablet 1 tablet by ORAL/FEEDING TUBE route once daily. - atorvastatin (LIPITOR) 40 mg tablet Take 1 tablet by mouth daily at bedtime. - carvedilol (COREG) 12.5 mg tablet Take 1 tablet by mouth twice daily with meals. - glimepiride (AMARYL) 1 mg tablet Take 1 tablet by mouth daily with breakfast. - Lancets (ACCU-CHEK SOFTCLIX LANCETS) lancets Use as instructed twice daily Problem List As Of Date 07/18/2023 Noted Resolved Angina pectoris (HCC) [I20.9] 04/02/2023 04/13/2023 Essential hypertension [I10] 04/02/2023 Hyperlipidemia [E78.5] 04/04/2023 Controlled type 2 diabetes mellitus without com*04/04/2023 SOLIS (acute kidney injury) (HCC) [N17.9] 04/04/2023 Obesity, Class II, BMI 35-39.9 [E66.9] 04/05/2023 Coronary artery disease involving [place] benavidez*04/05/2023 On mechanically assisted ventilation (HCC) [Z99*04/09/2023 04/13/2023 Postoperative pain [G89.18] 04/09/2023 Pneumothorax on right [J93.9] 04/09/2023 Stress hyperglycemia [R73.9] 04/09/2023 04/22/2023 Hypotension [I95.9] 04/09/2023 04/10/2023 Bilateral atelectasis [J98.11] 04/09/2023 Hypoxemia [R09.02] 04/09/2023 04/22/2023 PAF (paroxysmal atrial fibrillation) ([facility]) [I48*04/11/2023 04/22/2023 CKD (chronic kidney disease) [N18.9] 04/13/2023 Summary [Z91.199] 04/15/2023 04/24/2023 Postoperative atrial fibrillation (HCC) [I97.89*04/15/2023 Obesity, Class III, BMI >= 40 [E66.01] 04/15/2023 04/22/2023 Hyponatremia [E87.1] 04/20/2023 04/22/2023 Recurrent urinary tract infection [N39.0] 04/20/2023 Infection due to ESBL-producing Escherichia col*04/20/2023 Staphylococcus epidermidis bacteremia [R78.81, *04/21/2023 Surgical site infection [T81.49XA] 04/21/2023 Encounter for counseling for jdvhcoipb-ty-lzmeb* Encounter Status:Closed by CARMENCITA WOLFE on 07/18/23 [facility] CNOVon 07-12-2023 CNOV Office Visit (CPRMER ) DINO BLANDON ([id number]) 1950 M Date Time Provider Department 07/12/23 11:00 AM CARDIAC VAS EXERCISE [facility] CPRMER During your visit today, we recorded the following information about you: Pulse Blood pressure Weight Height 58/minute 132/70 95.7 kg 1.638 m Alana Menon RN 07/12/2023 11:34 AM Signed Cardiac Rehab exercise class Cardiac Rehabilitation [facility] Based Program Supervising Physician: Marilyn Dove Diagnosis: Hx of cabg (primary encounter diagnosis) Phase: 2 Monitored: yes Session Number: 13 Patient negative for COVID exposure and symptoms. Today?s exercise session was comprised of a warm-up, aerobic conditioning phase, aerobic, cool down, and free weights and/or resistance machines. Patient tolerated prescribed exercise workload. Tele SB SR-PACs; asymptomatic with ectopic beats. Vitals WNL for patient. No chest discomfort. No medication changes. This is a hospital based cardiac rehab program. Patient working towards exercise goals by increasing exercise frequency and/or intensity and/or duration. Patient working towards educational goals by attending education classes or receiving and reviewing educational materials with staff. Patient has verbalized understanding of Medications education topic and the relation to disease management. Patient?s [facility] Exercise sessions will be scanned into IVDesk once it is completed. These can be viewed by going under the ?Scanned Documents? tab and looking for documents labeled ?Cardiac Rehabilitation.? [facility] Exercise session contains exercise data such as, but not limited to modality, intensity, duration and frequency of exercise, along with vital signs pre, during and post exercise and EKG rhythm strips. Alana Menon RN Referring Provider: MARILYN DOVE [[id number]] Allergies As of Date: 07/12/2023 (No Known Allergies) Date Reviewed: 07/03/2023 Reviewed by: Sujey Funk MA - Fully Assessed Reason for Visit: Phase 2 Session [8657] Primary Visit Diagnosis:Hx of CABG [Z95.1] Prescriptions as of 07/12/2023 - gabapentin (NEURONTIN) 100 mg capsule Take 1 capsule by mouth daily at bedtime for 14 days. - bumetanide (BUMEX) 1 mg tablet Take 1 tablet Saturday, Saturday and Saturday. - amLODIPine (NORVASC) 5 mg tablet Take 2 tablets by mouth once daily. - blood sugar diagnostic (ACCU-CHEK GUIDE TEST STRIPS) test strip Use as instructed twice daily - tamsulosin (FLOMAX) 0.4 mg Take 1 capsule by mouth daily at bedtime. - acetaminophen (TYLENOL) 325 mg tablet Take 2 tablets by mouth every 6 hours as needed for pain. - aspirin 81 mg chewable tablet 1 tablet by ORAL/FEEDING TUBE route once daily. - atorvastatin (LIPITOR) 40 mg tablet Take 1 tablet by mouth daily at bedtime. - carvedilol (COREG) 12.5 mg tablet Take 1 tablet by mouth twice daily with meals. - glimepiride (AMARYL) 1 mg tablet Take 1 tablet by mouth daily with breakfast. - Lancets (ACCU-CHEK SOFTCLIX LANCETS) lancets Use as instructed twice daily Problem List As Of Date 07/12/2023 Noted Resolved Angina pectoris (HCC) [I20.9] 04/02/2023 04/13/2023 Essential hypertension [I10] 04/02/2023 Hyperlipidemia [E78.5] 04/04/2023 Controlled type 2 diabetes mellitus without com*04/04/2023 SOLIS (acute kidney injury) (HCC) [N17.9] 04/04/2023 Obesity, Class II, BMI 35-39.9 [E66.9] 04/05/2023 Coronary artery disease involving [place] benavidez*04/05/2023 On mechanically assisted ventilation (HCC) [Z99*04/09/2023 04/13/2023 Postoperative pain [G89.18] 04/09/2023 Pneumothorax on right [J93.9] 04/09/2023 Stress hyperglycemia [R73.9] 04/09/2023 04/22/2023 Hypotension [I95.9] 04/09/2023 04/10/2023 Bilateral atelectasis [J98.11] 04/09/2023 Hypoxemia [R09.02] 04/09/2023 04/22/2023 PAF (paroxysmal atrial fibrillation) (HCC) [I48*04/11/2023 04/22/2023 CKD (chronic kidney disease) [N18.9] 04/13/2023 Summary [Z91.199] 04/15/2023 04/24/2023 Postoperative atrial fibrillation (HCC) [I97.89*04/15/2023 Obesity, Class III, BMI >= 40 [E66.01] 04/15/2023 04/22/2023 Hyponatremia [E87.1] 04/20/2023 04/22/2023 Recurrent urinary tract infection [N39.0] 04/20/2023 Infection due to ESBL-producing Escherichia col*04/20/2023 Staphylococcus epidermidis bacteremia [R78.81, *04/21/2023 Surgical site infection [T81.49XA] 04/21/2023 Encounter for counseling for kbgjjdgbn-pr-nfocg* Encounter Status:Closed by ALANA MENON on 07/12/23 [facility] CNOVkwadwo 07-11-2023 CNOV Office Visit (CPRMER ) DINO BLANDON ([id number]) 1950 M Date Time Provider Department 07/11/23 11:00 [facility] During your visit today, we recorded the following information about you: Pulse Blood pressure Weight Height 62/minute 152/80 96.2 kg 1.6 m Alana Menon RN 07/11/2023 11:27 AM Signed Cardiac Rehab exercise class Cardiac Rehabilitation [facility] Based Program Supervising Physician: Marilyn Dove Diagnosis: Hx of cabg (primary encounter diagnosis) Phase: 2 Monitored: yes Session Number: 12 Patient negative for COVID exposure and symptoms. Today?s exercise session was comprised of a warm-up, aerobic conditioning phase, aerobic, cool down, and free weights and/or resistance machines. Patient tolerated prescribed exercise workload. Tele SB-SR-PAC; asymptomatic with ectopic beats. Vitals WNL for patient. No chest discomfort. No medication changes. This is a hospital based cardiac rehab program. Patient working towards exercise goals by increasing exercise frequency and/or intensity and/or duration. Patient working towards educational goals by attending education classes or receiving and reviewing educational materials with staff. Patient has verbalized understanding of Medications education topic and the relation to disease management. Patient?s [facility] Exercise sessions will be scanned into IVDesk once it is completed. These can be viewed by going under the ?Scanned Documents? tab and looking for documents labeled ?Cardiac Rehabilitation.? [facility] Exercise session contains exercise data such as, but not limited to modality, intensity, duration and frequency of exercise, along with vital signs pre, during and post exercise and EKG rhythm strips. Alana Menon RN Referring Provider: MARILYN DOVE [[id number]] Allergies As of Date: 07/11/2023 (No Known Allergies) Date Reviewed: 07/03/2023 Reviewed by: Sujey Funk MA - Fully Assessed Reason for Visit: Phase 2 Session [5437] Primary Visit Diagnosis:Hx of CABG [Z95.1] Prescriptions as of 07/11/2023 - gabapentin (NEURONTIN) 100 mg capsule Take 1 capsule by mouth daily at bedtime for 14 days. - bumetanide (BUMEX) 1 mg tablet Take 1 tablet Saturday, Saturday and Saturday. - amLODIPine (NORVASC) 5 mg tablet Take 2 tablets by mouth once daily. - blood sugar diagnostic (ACCU-CHEK GUIDE TEST STRIPS) test strip Use as instructed twice daily - tamsulosin (FLOMAX) 0.4 mg Take 1 capsule by mouth daily at bedtime. - acetaminophen (TYLENOL) 325 mg tablet Take 2 tablets by mouth every 6 hours as needed for pain. - aspirin 81 mg chewable tablet 1 tablet by ORAL/FEEDING TUBE route once daily. - atorvastatin (LIPITOR) 40 mg tablet Take 1 tablet by mouth daily at bedtime. - carvedilol (COREG) 12.5 mg tablet Take 1 tablet by mouth twice daily with meals. - glimepiride (AMARYL) 1 mg tablet Take 1 tablet by mouth daily with breakfast. - Lancets (ACCU-CHEK SOFTCLIX LANCETS) lancets Use as instructed twice daily Problem List As Of Date 07/11/2023 Noted Resolved Angina pectoris (HCC) [I20.9] 04/02/2023 04/13/2023 Essential hypertension [I10] 04/02/2023 Hyperlipidemia [E78.5] 04/04/2023 Controlled type 2 diabetes mellitus without com*04/04/2023 SOLIS (acute kidney injury) (HCC) [N17.9] 04/04/2023 Obesity, Class II, BMI 35-39.9 [E66.9] 04/05/2023 Coronary artery disease involving [place] benavidez*04/05/2023 On mechanically assisted ventilation (HCC) [Z99*04/09/2023 04/13/2023 Postoperative pain [G89.18] 04/09/2023 Pneumothorax on right [J93.9] 04/09/2023 Stress hyperglycemia [R73.9] 04/09/2023 04/22/2023 Hypotension [I95.9] 04/09/2023 04/10/2023 Bilateral atelectasis [J98.11] 04/09/2023 Hypoxemia [R09.02] 04/09/2023 04/22/2023 PAF (paroxysmal atrial fibrillation) (HCC) [I48*04/11/2023 04/22/2023 CKD (chronic kidney disease) [N18.9] 04/13/2023 Summary [Z91.199] 04/15/2023 04/24/2023 Postoperative atrial fibrillation (HCC) [I97.89*04/15/2023 Obesity, Class III, BMI >= 40 [E66.01] 04/15/2023 04/22/2023 Hyponatremia [E87.1] 04/20/2023 04/22/2023 Recurrent urinary tract infection [N39.0] 04/20/2023 Infection due to ESBL-producing Escherichia col*04/20/2023 Staphylococcus epidermidis bacteremia [R78.81, *04/21/2023 Surgical site infection [T81.49XA] 04/21/2023 Encounter for counseling for ypxkuubns-lu-bconz* Encounter Status:Closed by ALANA MENON on 07/11/23 [facility] UA DIP, URINE (POC)on 2022 BILIRUBIN UA (POCT) Negative Negative [facility] CLARITY UA (POCT) Clear [facility] COLOR UA (POCT) Yellow [facility] GLUCOSE UA (POCT) Negative Negative mg/dL [facility] Hemoglobin Ql (U) Small Abnormal Negative [facility] KETONE UA (POCT) Negative Negative mg/dL [facility] LEUKOCYTES UA (POCT) Large Abnormal Negative [facility] NITRITE UA (POCT) Negative Negative [facility] PH UA (POCT) 6.5 4.5 - 8.0 [facility] Protein Ql (U) Negative Negative mg/dL [facility] SPECIFIC GRAVITY UA (POCT) 1.020 1.005 - 1.030 [facility] UROBILINOGEN UA (POCT) 0.2 E.U./dL [place] [facility] E.U./dL [facility] UA DIP, URINE (POC)on 2022 BILIRUBIN UA (POCT) Negative Negative [place] [facility] CLARITY UA (POCT) Slightly Cloudy [facility] COLOR UA (POCT) Dark yellow [facility] GLUCOSE UA (POCT) Negative Negative mg/dL [facility] Hemoglobin Ql (U) Trace-intact Abnormal Negative [place] [facility] KETONE UA (POCT) Negative Negative mg/dL [facility] LEUKOCYTES UA (POCT) Trace Abnormal Negative [facility] NITRITE UA (POCT) Negative Negative [facility] PH UA (POCT) 7.0 4.5 - 8.[address] [facility] Protein Ql (U) Negative Negative mg/dL [facility] SPECIFIC GRAVITY UA (POCT) 1.020 1.005 - 1.030 [facility] UROBILINOGEN UA (POCT) 0.2 E.U./dL [place] E.U./dL [facility] CNPNon 05-06-2023 CNPN Telephone ([facility]) BARBERDINO ([id number]) 1950 M Date Time Provider Department 05/06/23 PASCALE LONDON During your visit today, we recorded the following information about you: Pascale [place] 05/06/2023 1:33 PM Signed Received Cardiopulmonary Rehab referral. 2nd call placed to patient, no answer. Left message with call back number encouraging patient call to schedule appointments. Letter sent requesting response by 05/20. Allergies As of Date: 05/06/2023 (No Known Allergies) Date Reviewed: 05/01/2023 Reviewed by: Sujey Funk MA - Fully Assessed Reason for Visit: Cardiac Rehab [3551] Cmt: 2nd call and letter sent Prescriptions as of 05/06/2023 - amLODIPine (NORVASC) 5 mg tablet Take 2 tablets by mouth once daily. - acetaminophen (TYLENOL) 325 mg tablet Take 2 tablets by mouth every 6 hours as needed for pain. - amiodarone (PACERONE) 200 mg tablet Take 1 tablet by mouth once daily for 28 days. - aspirin 81 mg chewable tablet 1 tablet by ORAL/FEEDING TUBE route once daily. - atorvastatin (LIPITOR) 40 mg tablet Take 1 tablet by mouth daily at bedtime. - bumetanide (BUMEX) 1 mg tablet Take 1 tablet by mouth once daily. - carvedilol (COREG) 12.5 mg tablet Take 1 tablet by mouth twice daily with meals. - glimepiride (AMARYL) 1 mg tablet Take 1 tablet by mouth daily with breakfast. - blood sugar diagnostic (ACCU-CHEK GUIDE TEST STRIPS) test strip Use as instructed twice daily - Lancets (ACCU-CHEK SOFTCLIX LANCETS) lancets Use as instructed twice daily Problem List As Of Date 05/06/2023 Noted Resolved Angina pectoris (HCC) [I20.9] 04/02/2023 04/13/2023 Essential hypertension [I10] 04/02/2023 Hyperlipidemia [E78.5] 04/04/2023 Controlled type 2 diabetes mellitus without com*04/04/2023 SOLIS (acute kidney injury) (HCC) [N17.9] 04/04/2023 Obesity, Class II, BMI 35-39.9 [E66.9] 04/05/2023 Coronary artery disease involving [place] benavidez*04/05/2023 On mechanically assisted ventilation (HCC) [Z99*04/09/2023 04/13/2023 Postoperative pain [G89.18] 04/09/2023 Pneumothorax on right [J93.9] 04/09/2023 Stress hyperglycemia [R73.9] 04/09/2023 04/22/2023 Hypotension [I95.9] 04/09/2023 04/10/2023 Bilateral atelectasis [J98.11] 04/09/2023 Hypoxemia [R09.02] 04/09/2023 04/22/2023 PAF (paroxysmal atrial fibrillation) ([facility]) [I48*04/11/2023 04/22/2023 CKD (chronic kidney disease) [N18.9] 04/13/2023 Summary [Z91.199] 04/15/2023 04/24/2023 Postoperative atrial fibrillation ([facility]) [I97.89*04/15/2023 Obesity, Class III, BMI >= 40 [E66.01] 04/15/2023 04/22/2023 Hyponatremia [E87.1] 04/20/2023 04/22/2023 Recurrent urinary tract infection [N39.0] 04/20/2023 Infection due to ESBL-producing Escherichia col*04/20/2023 Staphylococcus epidermidis bacteremia [R78.81, *04/21/2023 Surgical site infection [T81.49XA] 04/21/2023 Encounter for counseling for tcyzxcfbf-zt-mppoa* Letter Text Encounter Status:Closed by PASCALE LONDON on 05/06/23 [facility] [place] 05-02-2023 [place] Telephone ([facility]) DINO BLANDON ([id number]) 1950 M Date Time Provider Department 05/02/23 PASCALE LONDON During your visit today, we recorded the following information about you: Pascale [place] 05/02/2023 1:34 PM Signed Received Cardiopulmonary Rehab referral. Call placed to patient. Spoke with patient's family member regarding cardiac rehab and locations. Patient to call back if interested in scheduling cardiac rehab and possibly interested in [place] [facility] location. Provided call back number encouraging patient call to schedule appointments. Allergies As of Date: 05/02/2023 (No Known Allergies) Date Reviewed: 05/01/2023 Reviewed by: Sujey Funk MA - Fully Assessed Reason for Visit: Cardiac Rehab [3551] Cmt: Referral - initial outreach Prescriptions as of 05/02/2023 - amLODIPine (NORVASC) 5 mg tablet Take 2 tablets by mouth once daily. - acetaminophen (TYLENOL) 325 mg tablet Take 2 tablets by mouth every 6 hours as needed for pain. - amiodarone (PACERONE) 200 mg tablet Take 1 tablet by mouth once daily for 28 days. - aspirin 81 mg chewable tablet 1 tablet by ORAL/FEEDING TUBE route once daily. - atorvastatin (LIPITOR) 40 mg tablet Take 1 tablet by mouth daily at bedtime. - bumetanide (BUMEX) 1 mg tablet Take 1 tablet by mouth once daily. - carvedilol (COREG) 12.5 mg tablet Take 1 tablet by mouth twice daily with meals. - glimepiride (AMARYL) 1 mg tablet Take 1 tablet by mouth daily with breakfast. - linezolid (ZYVOX) 600 mg tablet Take 1 tablet by mouth every 12 hours for 17 doses. - blood sugar diagnostic (ACCU-CHEK GUIDE TEST STRIPS) test strip Use as instructed twice daily - Lancets (ACCU-CHEK SOFTCLIX LANCETS) lancets Use as instructed twice daily Problem List As Of Date 05/02/2023 Noted Resolved Angina pectoris (HCC) [I20.9] 04/02/2023 04/13/2023 Essential hypertension [I10] 04/02/2023 Hyperlipidemia [E78.5] 04/04/2023 Controlled type 2 diabetes mellitus without com*04/04/2023 SOLIS (acute kidney injury) (HCC) [N17.9] 04/04/2023 Obesity, Class II, BMI 35-39.9 [E66.9] 04/05/2023 Coronary artery disease involving [place] benavidez*04/05/2023 On mechanically assisted ventilation (HCC) [Z99*04/09/2023 04/13/2023 Postoperative pain [G89.18] 04/09/2023 Pneumothorax on right [J93.9] 04/09/2023 Stress hyperglycemia [R73.9] 04/09/2023 04/22/2023 Hypotension [I95.9] 04/09/2023 04/10/2023 Bilateral atelectasis [J98.11] 04/09/2023 Hypoxemia [R09.02] 04/09/2023 04/22/2023 PAF (paroxysmal atrial fibrillation) ([facility]) [I48*04/11/2023 04/22/2023 CKD (chronic kidney disease) [N18.9] 04/13/2023 Summary [Z91.199] 04/15/2023 04/24/2023 Postoperative atrial fibrillation (HCC) [I97.89*04/15/2023 Obesity, Class III, BMI >= 40 [E66.01] 04/15/2023 04/22/2023 Hyponatremia [E87.1] 04/20/2023 04/22/2023 Recurrent urinary tract infection [N39.0] 04/20/2023 Infection due to ESBL-producing Escherichia col*04/20/2023 Staphylococcus epidermidis bacteremia [R78.81, *04/21/2023 Surgical site infection [T81.49XA] 04/21/2023 Encounter for counseling for jmruukhnu-jp-vtjsm* Encounter Status:Closed by PASCALE LONDON on 05/02/23 [facility] Absolute lymphocyte counton 05-11-2022 Lymphocytes Auto (Unsp spec) [#/Vol] 1.80 10*3/uL 0.83-4.51 [facility] Work Phone: Basophil percentageon 2021 Basophil percentage 2.6 mg/dL 2.5-4.9 [facility] Work Phone: Basophils/100 WBC (Bld) 0.3 % 0-1 [facility] Work Phone: Bilirubin [Mass/Vol] 0.60 mg/dL 0.20-1.00 [facility] Work Phone: Comment on above: For patients on eltr ombopag therapy, use of Dimension [place] TBIL is not recommended. Chloride [Moles/Vol] 108 mmol/L 98-107 [facility] Work Phone: Cholesterol [Mass/Vol] 192 mg/dL <200 [facility] Work Phone: Comment on above: <200 mg/dL Desirable 200-240 mg/dL Borderline >240 mg/dL High Risk Eosinophils/100 WBC (Bld) 5.8 % 0-5 [facility] Work Phone: Glucose [Mass/Vol] 118 mg/dL 74-106 [facility] Work Phone: Comment on above: Fasting Glucose resu lt from 100 to 125 mg/dL suggests IMPAIRED HOMEOSTASIS per A.D.A. criteria. Neutrophils (Bld) [#/Vol] 6.7 10*3/uL 2.0-7.7 [facility] Work Phone: Neutrophils/100 WBC (Bld) 69.1 % 47-70 [facility] Work Phone: Potassium [Moles/Vol] 3.8 mmol/L 3.5-5.1 [facility] Work Phone: Protein [Mass/Vol] 6.6 g/dL 6.4-8.2 [facility] Work Phone: Sodium [Moles/Vol] 142 mmol/L 136-145 [facility] Work Phone: Triglyceride [Mass/Vol] 172 mg/dL <199 [facility] Work Phone: Comment on above: The drugs N-Acetylcy steine and Metamizole may falsely depress this assay.Serum Triglycerides Reference Interval Normal <150 mg/dL Borderline high 150 - 199 mg/dL High 200 - 499 mg/dL Very High > or = 500 mg/dL WBC (Bld) [#/Vol] 9.7 10*3/uL 4.4-11.0 [facility] Work Phone: Blood erythrocytes count (nu mber/volume)on 05-11-2022 RBC (Bld) [#/Vol] 4.94 10*6/uL 4.6-6.2 [facility] Work Phone: Blood hemoglobin measurement (mass/volume)on 05-11-2022 Hemoglobin (Bld) [Mass/Vol] 14.7 g/dL 13.0-16.5 [facility] Work Phone: Blood lymphocytes/100 leukoc yteson 05-11-2022 Lymphocytes/100 WBC (Bld) 18.7 % 19-41 [facility] Work Phone: Blood monocytes/100 leukocyt eson 05-11-2022 Monocytes/100 WBC (Bld) 5.7 % 0-10 [facility] Work Phone: Blood platelet mean volumeon 05-11-2022 Platelet mean volume (Bld) [Entitic vol] 9.2 fL 6.2-12.0 [facility] Work Phone: Determination of erythrocyte mean corpuscular volume (MCV)on 05-11-2022 MCV (RBC) [Entitic vol] 88.3 fL 80-94 [facility] Work Phone: Hematocrit Auto (Bld) [Volum e fraction]on 05-11-2022 Hematocrit (Bld) [Volume fraction] 43.6 % 40-54 [facility] Work Phone: Laboratory - Chemistry and C hemistry - challengeon 05-11-2022 ALP [Catalytic activity/Vol] 56 U/L 45-117 [facility] Work Phone: ALT [Catalytic activity/Vol] 27 U/L 16-61 [facility] Work Phone: CO2 [Moles/Vol] 27.0 mmol/L 21.0-32.0 [facility] Work Phone: Globulin (S) [Mass/Vol] 3.1 g/dL 2.2-4.2 [facility] Work Phone: Urea nitrogen/Creatinine [Mass ratio] 16.7 mg/mg 10-20 [facility] Work Phone: Laboratory - Hematology and Cell countson 05-11-2022 Erythrocyte distribution width (RBC) [Entitic vol] 43.6 fL 35.1-43.9 [facility] Work Phone: Erythrocyte distribution width (RBC) [Ratio] 13.5 % 11.6-14.6 [facility] Work Phone: Immature granulocytes/100 WBC (Bld) 0.400 % 0.0-0.9 [facility] Work Phone: Comment on above: IG% - Immature Granu locytes (promyelocytes, myelocytes and metamyelocytes) > 1% indicates that a LEFT SHIFT is Present. MCH (RBC) [Entitic mass] 29.8 pg 27.0-32.0 [facility] Work Phone: Nucleated RBC/100 WBC (Bld) [Ratio] 0 % 0-5 [facility] Work Phone: [phone] MCHC Auto (RBC) [Mass/Vol]on 05-11-2022 MCHC (RBC) [Mass/Vol] 33.7 g/dL 32-36 [facility] Work Phone: No Panel Informationon 05-11 Estimated GFR (MDRD) Amer 62 mL/min >60 [facility] Work Phone: Comment on above: GFR Calc Estimated GFR (MDRD) Non-Af Amer 52 mL/min >60 [facility] Work Phone: Comment on above: Non- GFR Calc Parathyroid Hormone (Intact) 47.9 pg/mL 18.4-80.1 [facility] Work Phone: Prostate Specific Antigen Total 6.17 ng/mL 0.0-4.0 [facility] Work Phone: Comment on above: This test was perfor med using the TPSA assay method for [employer] chemistry system. Values obtained with differentassay methods cannot be used interchangably.When changing PSA assays in the course of monitoring apatient, additional sequential testing should be carriedout to confirm baseline values. Urine Microalbumin/Creatinine Ratio 56.4 mg/g CRE <30 [facility] Work Phone: Vitamin D 25-Hydroxy 41.6 ng/mL [facility] Work Phone: Comment on above: Vitamin D 25(OH) Sta tus Range Deficiency <20 ng/mL (50nmol/L) Insufficiency 20 - 30 ng/mL (50 - 75 nmol/L) Sufficiency 30 - 100 ng/mL (75 - 250 nmol/L) Toxicity >100 ng/mL (>250 nmol/L) Platelets bldon 05-11-2022 Platelets (Bld) [#/Vol] 216 10*3/uL 150-450 [facility] Work Phone: Serum or plasma albumin pravin urement (mass/volume)on 05-11-2022 Albumin [Mass/Vol] 3.5 g/dL 3.2-5.0 [facility] Work Phone: Serum or plasma albumin/glob ulin mass ratioon 05-11-2022 Albumin/Globulin [Mass ratio] 1.1 {ratio} 0.9-2.4 [facility] Work Phone: Serum or plasma calcium pravin urement (mass/volume)on 05-11-2022 Calcium [Mass/Vol] 8.8 mg/dL 8.5-10.1 [facility] Work Phone: Serum or plasma cholesterol in HDL measurement (mass/volume)on 05-11-2022 Cholesterol in HDL [Mass/Vol] 55 mg/dL >40 [facility] Work Phone: Comment on above: The drugs N-Acetylcy steine and Metamizole may falsely depress this assay. Reference Range HDL <40 mg/dL Low HDL Cholesterol HDL >or= 60 mg/dL High HDL Cholesterol Serum or plasma cholesterol in VLDL measurement (mass/volume)on 05-11-2022 Cholesterol in VLDL [Mass/Vol] 34 mg/dL 5-40 [facility] Work Phone: Serum or plasma creatinine m easurement (mass/volume)on 05-11-2022 Creatinine [Mass/Vol] 1.44 mg/dL 0.70-1.30 [facility] Work Phone: Comment on above: The validity of the calculated GFR & GFRAA in patients over 70 years has not been determined. Clinical correlation is essential. Serum or plasma low density lipoprotein (LDL) cholesterol measurement (mass/volume)on 05-11-2022 Cholesterol in LDL [Mass/Vol] 103 mg/dL 0-130 [facility] Work Phone: Serum or plasma urea nitroge n measurement (mass/volume)on 05-11-2022 Urea nitrogen [Mass/Vol] 24 mg/dL 7-18 [facility] Work Phone: Thin prep Papanicolaou smear with manual screeningon 05-11-2022 Thin prep Papanicolaou smear with manual screening 18 U/L 15-37 [facility] Work Phone: Thin prep Papanicolaou smear with manual screening 7 5-15 [facility] Work Phone: Thin prep Papanicolaou smear with manual screening 28.2 mg/L NO RANGE EST. [facility] Work Phone: Urine creatinine measurement (mass/volume)on 05-11-2022 Creatinine (U) [Mass/Vol] 50.00 mg/dL NO RANGE EST. [facility] Work Phone: Vital Signs Date Time Vital Sign Value Performing Clinician Facility 12-14-2024 15:32-0400 Diastolic blood pressure 85 mm[Hg] Marilyn Dove MD Work Phone: [facility] 12-14-2024 15:32-0400 Systolic blood pressure 168 mm[Hg] Marilyn Dove MD Work Phone: [facility] 12-14-2024 15:31-0400 Body height 163.8 cm Marilyn Dove MD Work Phone: [facility] 12-14-2024 15:31-0400 Body mass index (BMI) [Ratio] 36.47 kg/m2 Marilyn Dove MD Work Phone: [facility] 12-14-2024 15:31-0400 Body weight 97.89 kg Marilyn Dove MD Work Phone: [facility] 12-14-2024 15:31-0400 Heart rate 51 /min Marilyn Dove MD Work Phone: [facility] 12-14-2024 15:31-0400 SaO2% (BldA) [Mass fraction] 98 % Marilyn Dove MD Work Phone: [facility] Comment on above: 06-26-2024 14:56-0500 Body height 163.8 cm Marilyn Dove MD Work Phone: [facility] 06-26-2024 14:56-0500 Body mass index (BMI) [Ratio] 35.64 kg/m2 Marilyn Dove MD Work Phone: [facility] 06-26-2024 14:56-0500 Body weight 95.66 kg Marilyn Dove MD Work Phone: [facility] 06-26-2024 14:56-0500 Diastolic blood pressure 85 mm[Hg] Marilyn Dove MD Work Phone: [facility] 06-26-2024 14:56-0500 Heart rate 56 /min Marilyn Dove MD Work Phone: [facility] 06-26-2024 14:56-0500 SaO2% (BldA) [Mass fraction] 98 % Marilyn Dove MD Work Phone: [facility] Comment on above: 06-26-2024 14:56-0500 Systolic blood pressure 136 mm[Hg] Marilyn Dove MD Work Phone: [facility] 01-13-2024 10:21-0400 Body mass index (BMI) [Ratio] 36.2 kg/m2 Gato Zaldivar MD Work Phone: [facility] 01-13-2024 10:21-0400 Body temperature 97.59 [degF] Gato Zaldivar MD Work Phone: [facility] 01-13-2024 10:21-0400 Body weight 97.16 kg Gato Zaldivar MD Work Phone: [facility] 01-13-2024 10:21-0400 Diastolic blood pressure 84 mm[Hg] Gato Zaldivar MD Work Phone: [facility] 01-13-2024 10:21-0400 Heart rate 49 /min Gato Zaldivar MD Work Phone: [facility] Comment on above: Low Pulse 01-13-2024 10:21-0400 Respiratory rate 18 /min Gato Zaldivar MD Work Phone: [facility] 01-13-2024 10:21-0400 SaO2% (BldA) [Mass fraction] 99 % Gato Zaldivar MD Work Phone: [facility] 01-13-2024 10:21-0400 Systolic blood pressure 147 mm[Hg] Gato Zaldivar MD Work Phone: [facility] 12-31-2023 12:15-0400 Body height 163.8 cm Marilyn Dove MD Work Phone: [facility] 12-31-2023 12:15-0400 Body mass index (BMI) [Ratio] 35.62 kg/m2 Marilyn Dove MD Work Phone: [facility] 12-31-2023 12:15-0400 Body weight 95.62 kg Marilyn Dove MD Work Phone: [facility] 12-31-2023 12:15-0400 Diastolic blood pressure 76 mm[Hg] Marilyn Dove MD Work Phone: [facility] 12-31-2023 12:15-0400 Heart rate 53 /min Marilyn Dove MD Work Phone: [facility] 12-31-2023 12:15-0400 SaO2% (BldA) [Mass fraction] 97 % Marilyn Dove MD Work Phone: [facility] Comment on above: RA 12-31-2023 12:15-0400 Systolic blood pressure 138 mm[Hg] Marilyn Dove MD Work Phone: [facility] 09-27-2023 11:06-0500 Body weight 95.71 kg [facility] 09-27-2023 11:06-0500 Diastolic blood pressure 70 mm[Hg] [facility] 09-27-2023 11:06-0500 Heart rate 56 /min [facility] 09-27-2023 11:06-0500 Systolic blood pressure 130 mm[Hg] [facility] 09-24-2023 11:46-0500 Body weight 95.71 kg [facility] 09-24-2023 11:46-0500 Diastolic blood pressure 66 mm[Hg] [facility] 09-24-2023 11:46-0500 Heart rate 55 /min [facility] 09-24-2023 11:46-0500 Systolic blood pressure 134 mm[Hg] [facility] 09-24-2023 11:38-0500 Body weight 95.71 kg [facility] 09-24-2023 11:38-0500 Diastolic blood pressure 66 mm[Hg] [facility] 09-24-2023 11:38-0500 Heart rate 55 /min [facility] 09-24-2023 11:38-0500 Systolic blood pressure 134 mm[Hg] [facility] 09-13-2023 11:05-0500 Body weight 96.62 kg [facility] 09-13-2023 11:05-0500 Diastolic blood pressure 76 mm[Hg] [facility] 09-13-2023 11:05-0500 Heart rate 53 /min [facility] 09-13-2023 11:05-0500 Systolic blood pressure 148 mm[Hg] [facility] 09-12-2023 11:17-0500 Body height 163.8 cm [facility] 09-12-2023 11:17-0500 Body weight 96.62 kg [facility] 09-12-2023 11:17-0500 Diastolic blood pressure 60 mm[Hg] [facility] 09-12-2023 11:17-0500 Heart rate 55 /min [facility] 09-12-2023 11:17-0500 Systolic blood pressure 122 mm[Hg] [facility] 09-10-2023 11:10-0500 Body weight 96.62 kg [facility] 09-10-2023 11:10-0500 Diastolic blood pressure 78 mm[Hg] [facility] 09-10-2023 11:10-0500 Heart rate 57 /min [facility] 09-10-2023 11:10-0500 Systolic blood pressure 150 mm[Hg] [facility] 09-06-2023 11:39-0500 Body weight 96.62 kg [facility] 09-06-2023 11:39-0500 Diastolic blood pressure 80 mm[Hg] [facility] 09-06-2023 11:39-0500 Heart rate 57 /min [facility] 09-06-2023 11:39-0500 Systolic blood pressure 146 mm[Hg] [facility] 07-25-2023 11:02-0500 Body height 163.8 cm [facility] 07-25-2023 11:02-0500 Body weight 96.16 kg [facility] 07-25-2023 11:02-0500 Diastolic blood pressure 76 mm[Hg] [facility] 07-25-2023 11:02-0500 Heart rate 57 /min [facility] 07-25-2023 11:02-0500 Systolic blood pressure 146 mm[Hg] [facility] 07-23-2023 11:09-0500 Body height 163.8 cm [facility] 07-23-2023 11:09-0500 Body weight 96.16 kg [facility] 07-23-2023 11:09-0500 Diastolic blood pressure 60 mm[Hg] [facility] 07-23-2023 11:09-0500 Heart rate 58 /min [facility] 07-23-2023 11:09-0500 Systolic blood pressure 112 mm[Hg] [facility] 07-12-2023 10:48-0500 Body height 163.8 cm [facility] 07-12-2023 10:48-0500 Body weight 95.71 kg [facility] 07-12-2023 10:48-0500 Diastolic blood pressure 70 mm[Hg] [facility] 07-12-2023 10:48-0500 Heart rate 58 /min [facility] 07-12-2023 10:48-0500 Systolic blood pressure 132 mm[Hg] [facility] 07-11-2023 10:57-0500 Body height 160 cm [facility] 07-11-2023 10:57-0500 Body weight 96.16 kg [facility] 07-11-2023 10:57-0500 Diastolic blood pressure 80 mm[Hg] [facility] 07-11-2023 10:57-0500 Heart rate 62 /min [facility] 07-11-2023 10:57-0500 Systolic blood pressure 152 mm[Hg] [facility] 07-09-2023 11:09-0500 Body height 163.8 cm [facility] 07-09-2023 11:09-0500 Body weight 95.25 kg [facility] 07-09-2023 11:09-0500 Diastolic blood pressure 70 mm[Hg] [facility] 07-09-2023 11:09-0500 Heart rate 79 /min [facility] 07-09-2023 11:09-0500 Systolic blood pressure 152 mm[Hg] [facility] 07-05-2023 10:59-0500 Body weight 95.71 kg [facility] 07-05-2023 10:59-0500 Diastolic blood pressure 80 mm[Hg] [facility] 07-05-2023 10:59-0500 Heart rate 67 /min [facility] 07-05-2023 10:59-0500 Systolic blood pressure 128 mm[Hg] [facility] 07-04-2023 11:10-0500 Body height 163.8 cm [facility] 07-04-2023 11:10-0500 Body weight 96.16 kg [facility] 07-04-2023 11:10-0500 Diastolic blood pressure 82 mm[Hg] [facility] 07-04-2023 11:10-0500 Heart rate 66 /min [facility] 07-04-2023 11:10-0500 Systolic blood pressure 148 mm[Hg] [facility] 07-03-2023 13:10-0500 Body height 164 cm Kezia Laffey SUPERVISOR [employer] CUTTING.[employer] Work Phone: [facility] 07-03-2023 13:10-0500 Body temperature 98.2 [degF] Kezia Laffey SUPERVISOR [employer] C[employer]TING.[employer] Work Phone: [facility] 07-03-2023 13:10-0500 Body weight 95.25 kg Kezia Laffey SUPERVISOR [employer]AVE C[employer]TING.[employer] Work Phone: [facility] 07-03-2023 13:10-0500 Diastolic blood pressure 82 mm[Hg] Kezia Laffey SUPERVISOR STAVE CUTTING.[employer] Work Phone: [facility] 07-03-2023 13:10-0500 Heart rate 63 /min Kezia Laffey SUPERVISOR [employer]AVE C[employer]TING.[employer] Work Phone: [facility] 07-03-2023 13:10-0500 Respiratory rate 14 /min Kezia Son SUPERVISOR ST[employer] CUTTING.[employer] Work Phone: [facility] 07-03-2023 13:10-0500 SaO2% (BldA) [Mass fraction] 99 % Kezia Son SUPERVISOR [employer] C[employer]TING.[employer] Work Phone: [facility] 07-03-2023 13:10-0500 Systolic blood pressure 152 mm[Hg] Kezia Son SUPERVISOR [employer] C[employer]TING.[employer] Work Phone: [facility] 06-25-2023 11:04-0500 Body height 163.8 cm [facility] 06-25-2023 11:04-0500 Body weight 95.71 kg [facility] 06-25-2023 11:04-0500 Diastolic blood pressure 78 mm[Hg] [facility] 06-25-2023 11:04-0500 Heart rate 67 /min [facility] 06-25-2023 11:04-0500 Systolic blood pressure 142 mm[Hg] [facility] 06-21-2023 11:06-0500 Body weight 96.16 kg [facility] 06-21-2023 11:06-0500 Diastolic blood pressure 80 mm[Hg] [facility] 06-21-2023 11:06-0500 Heart rate 62 /min [facility] 06-21-2023 11:06-0500 Systolic blood pressure 146 mm[Hg] [facility] 06-20-2023 11:09-0500 Body weight 96.16 kg [facility] 06-20-2023 11:09-0500 Diastolic blood pressure 78 mm[Hg] [facility] 06-20-2023 11:09-0500 Heart rate 59 /min [facility] 06-20-2023 11:09-0500 Systolic blood pressure 150 mm[Hg] [facility] 06-14-2023 11:11-0500 Body weight 95.17 kg [facility] 06-14-2023 11:11-0500 Diastolic blood pressure 80 mm[Hg] [facility] 06-14-2023 11:11-0500 Heart rate 61 /min [facility] 06-14-2023 11:11-0500 Systolic blood pressure 142 mm[Hg] [facility] 06-13-2023 10:56-0500 Body height 163.8 cm [facility] 06-13-2023 10:56-0500 Body weight 95.62 kg [facility] 06-13-2023 10:56-0500 Diastolic blood pressure 80 mm[Hg] [facility] 06-13-2023 10:56-0500 Heart rate 65 /min [facility] 06-13-2023 10:56-0500 Systolic blood pressure 132 mm[Hg] [facility] 06-11-2023 12:56-0500 Body height 163.8 cm Kezia Laffey SUPERVISOR [employer] C[employer]TING.[employer] Work Phone: [facility] 06-11-2023 12:56-0500 Body temperature 97.9 [degF] Kezia Laffey SUPERVISOR [employer] C[employer]TING.[employer] Work Phone: [facility] 06-11-2023 12:56-0500 Body weight 95.25 kg Kezia Laffey SUPERVISOR [employer] C[employer]TING.[employer] Work Phone: [facility] 06-11-2023 12:56-0500 Diastolic blood pressure 88 mm[Hg] Kezia Laffey SUPERVISOR [employer] C[employer]TING.[employer] Work Phone: [facility] 06-11-2023 12:56-0500 Heart rate 59 /min Kezia Laffey SUPERVISOR [employer] C[employer]TING.[employer] Work Phone: [facility] 06-11-2023 12:56-0500 Respiratory rate 14 /min Kezia Laffey SUPERVISOR [employer] C[employer]TING.[employer] Work Phone: [facility] 06-11-2023 12:56-0500 SaO2% (BldA) [Mass fraction] 98 % Kezia Laffey SUPERVISOR [employer] C[employer] Work Phone: [facility] 06-11-2023 12:56-0500 Systolic blood pressure 144 mm[Hg] Kezia Laffey SUPERVISOR [employer] C[employer]TING.[employer] Work Phone: [facility] 06-05-2023 10:40-0400 Body height 163.8 cm Kezia Laffey SUPERVISOR [employer] C[employer]TING.[employer] Work Phone: [facility] 06-05-2023 10:40-0400 Body temperature 98.01 [degF] Kezia Laffey SUPERVISOR [employer] C[employer]TING.[employer] Work Phone: [facility] 06-05-2023 10:40-0400 Body weight 95.35 kg Kezia Laffey SUPERVISOR [employer] C[employer]TING.[employer] Work Phone: [facility] 06-05-2023 10:40-0400 Diastolic blood pressure 90 mm[Hg] Kezia Laffey SUPERVISOR [employer] C[employer]TING.[employer] Work Phone: [facility] 06-05-2023 10:40-0400 Heart rate 63 /min Kezia Laffey SUPERVISOR [employer] C[employer]TING.[employer] Work Phone: [facility] 06-05-2023 10:40-0400 Respiratory rate 14 /min Kezia Laffey SUPERVISOR ST[employer] CUTTING.[employer] Work Phone: [facility] 06-05-2023 10:40-0400 SaO2% (BldA) [Mass fraction] 99 % Kezia Laffey SUPERVISOR [employer] C[employer]TING.[employer] Work Phone: [facility] 06-05-2023 10:40-0400 Systolic blood pressure 168 mm[Hg] Kezia Laffey SUPERVISOR [employer] C[employer]TING.[employer] Work Phone: [facility] 06-03-2023 10:06-0400 Diastolic blood pressure 83 mm[Hg] Eber Omari DO Work Phone: [facility] 06-03-2023 10:06-0400 Heart rate 58 /min Eber Omari DO Work Phone: [facility] 06-03-2023 10:06-0400 Systolic blood pressure 154 mm[Hg] Eber Omari DO Work Phone: [facility] 06-03-2023 10:01-0400 Body height 163.8 cm Eber Omari DO Work Phone: [facility] 06-03-2023 10:01-0400 Body weight 94.35 kg Eber Omari DO Work Phone: [facility] 05-31-2023 11:32-0400 Body height 163.8 cm Kezia Laffey SUPERVISOR [employer] C[employer]TING.[employer] Work Phone: [facility] 05-31-2023 11:32-0400 Body temperature 98.1 [degF] Kezia Laffey SUPERVISOR ST[employer] CUTTING.[employer] Work Phone: [facility] 05-31-2023 11:32-0400 Body weight 94.35 kg Kezia Laffey SUPERVISOR [employer] C[employer]TING.[employer] Work Phone: [facility] 05-31-2023 11:32-0400 Diastolic blood pressure 85 mm[Hg] Kezia Laffey SUPERVISOR ST[employer] CUTTING.[employer] Work Phone: [facility] 05-31-2023 11:32-0400 Heart rate 60 /min Kezia Laffey SUPERVISOR STAVE C[employer]TING.[employer] Work Phone: [facility] 05-31-2023 11:32-0400 Respiratory rate 14 /min Kezia Laffey SUPERVISOR ST[employer] CUTTING.[employer] Work Phone: [facility] 05-31-2023 11:32-0400 SaO2% (BldA) [Mass fraction] 99 % Kezia Laffey SUPERVISOR ST[employer] CUTTING.[employer] Work Phone: [facility] 05-31-2023 11:32-0400 Systolic blood pressure 151 mm[Hg] Kezia Laffey SUPERVISOR [employer] CUTTING.[employer] Work Phone: [facility] 05-21-2023 10:40-0400 Body height 163.8 cm Rush Pelayo PA-C Work Phone: [facility] 05-21-2023 10:40-0400 Body temperature 97.9 [degF] Rush Pelayo PA-C Work Phone: [facility] 05-21-2023 10:40-0400 Body weight 96.16 kg Rush Pelayo PA-C Work Phone: [facility] 05-21-2023 10:40-0400 Diastolic blood pressure 90 mm[Hg] Rush Pelayo PA-C Work Phone: [facility] 05-21-2023 10:40-0400 Heart rate 64 /min Rush Pelayo PA-C Work Phone: [facility] 05-21-2023 10:40-0400 Respiratory rate 14 /min Rush Pelayo PA-C Work Phone: [facility] 05-21-2023 10:40-0400 SaO2% (BldA) [Mass fraction] 95 % Rush Pelayo PA-C Work Phone: [facility] 05-21-2023 10:40-0400 Systolic blood pressure 180 mm[Hg] Rush Pelayo PA-C Work Phone: [facility] 05-01-2023 13:58-0400 Body height 163.8 cm Kezia Laffey SUPERVISOR ST[employer] C[employer]TING.[employer] Work Phone: [facility] 05-01-2023 13:58-0400 Body temperature 97.11 [degF] Kezia Laffey SUPERVISOR ST[employer] CUTTING.[employer] Work Phone: [facility] 05-01-2023 13:58-0400 Body weight 97.52 kg Kezia Laffey SUPERVISOR STAVE CUTTING.[employer] Work Phone: [facility] 05-01-2023 13:58-0400 Diastolic blood pressure 86 mm[Hg] Kezia Laffey SUPERVISOR STAVE CUTTING.[employer] Work Phone: [facility] 05-01-2023 13:58-0400 Heart rate 68 /min Kezia Laffey SUPERVISOR ST[employer] CUTTING.[employer] Work Phone: [facility] 05-01-2023 13:58-0400 Respiratory rate 14 /min Kezia Laffey SUPERVISOR STAVE CUTTING.[employer] Work Phone: [facility] 05-01-2023 13:58-0400 SaO2% (BldA) [Mass fraction] 97 % Kezia Cline SUPERVISOR STAVE CUTTING.[employer] Work Phone: [facility] 05-01-2023 13:58-0400 Systolic blood pressure 165 mm[Hg] Kezia Cline APRN.[employer] Work Phone: [facility] Encounters Encounter Date Encounter Type Care Provider Facility Start: 01-07-2025 [facility] Facility: [facility] Start: 12-17-2024 End: 12-17-2024 Follow-up encounter Sylvia Jha RN Cardiology Start: 12-14-2024 End: 12-14-2024 ambulatory MARILYN DOVE Facility:[facility] Start: 12-14-2024 End: 12-14-2024 Patient encounter procedure Marilyn Dove MD Work Phone: Cardiology Comment on above: Coronary artery dise 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 (Primary Dx); Hx of CABG; Essential hypertension; Neurogenic claudication; Change in heart murmur; Palpitations; Heart palpitations Start: 12-14-2024 End: 12-14-2024 [facility] MARILYN DOVE Facility:[facility] Start: 11-16-2024 End: 11-19-2024 Telephone encounter Juaquin Agrawal MD Work Phone: Cardiology Comment on above: Received Outside [facility] Records (Medical Clearance scanned) Start: 09-02-2024 [facility] Facility: [facility] Start: 08-24-2024 End: 08-27-2024 Refill Kezia Cline SUPERVISOR [employer] C[employer]TING.[employer] Work Phone: Cardiothoracic Comment on above: Refill Request Start: 08-20-2024 ambulatory Leo Nuñez Facility: [facility] Start: 08-20-2024 End: 08-23-2024 Evaluation and management of inpatient Melissa Marshall Facility:[facility] Start: 07-07-2024 ambulatory SANDERS DOVE Facilit y:[id number] Start: 07-07-2024 End: 07-07-2024 Subsequent hospital visit by physician Nba Clemens Rm 2 [facility] Comment on above: Leg pain, bilateral [M79.604, M79.605] Start: 06-30-2024 End: 06-30-2024 ambulatory Santino Fermin Facility:[facility] Start: 06-26-2024 End: 06-26-2024 ambulatory MARILYN DOVE Facility:[facility] Start: 06-26-2024 End: 06-26-2024 Patient encounter procedure Marilyn Dove MD Work Phone: Cardiology Comment on above: Coronary artery dise 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 (Primary Dx); Essential hypertension; Leg pain, bilateral; Stage 3 chronic kidney disease, unspecified whether stage 3a or 3b CKD (HCC) Start: 06-26-2024 End: 06-29-2024 Telephone encounter Marilyn Dove MD Work Phone: Cardiology Comment on above: Follow Up Start: 01-13-2024 End: 01-13-2024 ambulatory GATO ZALDIVAR Facility:[facility] Start: 01-13-2024 End: 01-13-2024 Patient encounter procedure Gato Zaldivar MD Work Phone: Infectious Disease Comment on above: Herpes zoster with o ther complication (Primary Dx); Stage 3a chronic kidney disease (HCC); Post herpetic neuralgia; Scaly patch rash; Controlled type 2 diabetes mellitus without complication, without long-term current use of insulin ([facility] Start: 01-01-2024 Telephone encounter Tasha Bruno RN Cardiology Comment on above: Results Start: 12-31-2023 End: 12-31-2023 Patient encounter procedure Marilyn Dove MD Work Phone: Cardiology Comment on above: Coronary artery dise 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 (Primary Dx); Herpes zoster with complication; Essential hypertension; Stage 3b chronic kidney disease (HCC); Controlled type 2 diabetes mellitus without complication, without long-term current use of insulin (HCC) Start: 10-08-2023 End: 10-08-2023 ambulatory [facility] Work Phone: Start: 10-08-2023 End: 10-08-2023 [facility] Start: 09-27-2023 End: 09-27-2023 ambulatory SANDERS DOVE Facility:[id number] Start: 09-27-2023 End: 09-27-2023 Patient encounter procedure Cardiac [facility] Comment on above: Hx of CABG (Primary Dx) Start: 09-24-2023 End: 09-24-2023 ambulatory SANDERS DOVE Facility:[id number] Start: 09-24-2023 End: 09-24-2023 Patient encounter procedure Cardiac [facility] Comment on above: Hx of CABG (Primary Dx) Start: 09-13-2023 End: 09-13-2023 ambulatory SANDERS DOVE Facility:[id number] Start: 09-13-2023 End: 09-13-2023 Patient encounter procedure Cardiac [facility] Comment on above: Hx of CABG (Primary Dx) Start: 09-12-2023 End: 09-12-2023 ambulatory SANDERS DOVE Facility:[id number] Start: 09-12-2023 End: 09-12-2023 Patient encounter procedure Cardiac [facility] Comment on above: Hx of CABG (Primary Dx) Start: 09-10-2023 End: 09-10-2023 ambulatory SANDERS DOVE Facility:[id number] Start: 09-10-2023 End: 09-10-2023 Patient encounter procedure Cardiac [facility] Comment on above: Hx of CABG (Primary Dx) Start: 09-06-2023 End: 09-06-2023 ambulatory SANDERS DOVE Facility:[id number] Start: 09-06-2023 End: 09-06-2023 Patient encounter procedure Cardiac [facility] Comment on above: Hx of CABG (Primary Dx) Start: 09-03-2023 End: 09-03-2023 ambulatory SANDERS DOVE Facility:[id number] Start: 08-30-2023 End: 08-30-2023 ambulatory SANDERS DOVE Facility:[id number] Start: 08-27-2023 End: 08-27-2023 ambulatory SANDERS DOVE Facility:[id number] Start: 08-22-2023 End: 08-22-2023 ambulatory SANDERS DOVE Facility:[id number] Start: 08-20-2023 End: 08-20-2023 ambulatory SANDERS DOVE Facility:[id number] Start: 08-16-2023 End: 08-16-2023 ambulatory SANDERS DOVE Facility:[id number] Start: 08-15-2023 End: 08-15-2023 ambulatory SANDERS DOVE Facility:[id number] Start: 08-13-2023 End: 08-13-2023 ambulatory SANDERS DOVE Facility:[id number] Start: 08-09-2023 End: 08-09-2023 ambulatory SANDERS DOVE Facility:[id number] Start: 08-08-2023 End: 08-08-2023 ambulatory SANDERS DOVE Facility:[id number] Start: 08-02-2023 End: 08-02-2023 ambulatory SANDERS DOVE Facility:[id number] Start: 08-01-2023 End: 08-01-2023 ambulatory SANDERS DOVE Facility:[id number] Start: 07-25-2023 End: 07-25-2023 ambulatory SANDERS DOVE Facility:[id number] Start: 07-25-2023 End: 07-25-2023 Patient encounter procedure Cardiac [facility] Comment on above: Hx of CABG (Primary Dx) Start: 07-23-2023 End: 07-23-2023 ambulatory SANDERS DOVE Facility:[id number] Start: 07-23-2023 End: 07-23-2023 Patient encounter procedure [facility]iac [facility] Comment on above: Hx of CABG (Primary Dx) Start: 07-19-2023 End: 07-19-2023 ambulatory SANDERS DOVE Facility:[id number] Start: 07-18-2023 End: 07-18-2023 ambulatory SANDERS DOVE Facility:[id number] Start: 07-12-2023 End: 07-12-2023 ambulatory SANDERS DOVE Facility:[id number] Start: 07-12-2023 End: 07-12-2023 Patient encounter procedure [facility]iac [facility] Comment on above: Hx of CABG (Primary Dx) Start: 07-11-2023 End: 07-11-2023 ambulatory MARILYN DOVE Facility:[id number] Start: 07-11-2023 End: 07-11-2023 Patient encounter procedure [facility]iac [facility] Comment on above: Hx of CABG (Primary Dx) Start: 07-09-2023 End: 07-09-2023 Patient encounter procedure Cardiac [facility] Comment on above: Hx of CABG (Primary Dx) Start: 07-05-2023 End: 07-05-2023 Patient encounter procedure Cardiac [facility] Comment on above: Hx of CABG (Primary Dx) Start: 07-04-2023 End: 07-04-2023 Patient encounter procedure Cardiac [facility] Comment on above: Hx of CABG (Primary Dx) Start: 07-03-2023 End: 07-03-2023 Patient encounter procedure Kezia Cline SUPERVISOR [employer] C[employer] Work Phone: Cardiothoracic Comment on above: Visit for wound chec k (Primary Dx); S/P CABG x 3 Start: 06-25-2023 End: 06-25-2023 Patient encounter procedure Cardiac [facility] CARDIOPULMONARY REHAB Comment on above: Hx of CABG (Primary Dx) Start: 06-22-2023 Telephone encounter Celia Saldivar Cardiology Comment on above: Post Dc Program Call - Needs Attn; Appointment Start: 06-21-2023 End: 06-21-2023 Patient encounter procedure Cardiac [facility] CARDIOPULMONARY REHAB Comment on above: Hx of CABG (Primary Dx) Start: 06-20-2023 End: 06-20-2023 Patient encounter procedure Cardiac [facility] CARDIOPULMONARY REHAB Comment on above: Hx of CABG (Primary Dx) Start: 06-14-2023 End: 06-14-2023 Patient encounter procedure Cardiac [facility] CARDIOPULMONARY REHAB Comment on above: Hx of CABG (Primary Dx) Start: 06-13-2023 End: 06-13-2023 Patient encounter procedure Cardiac [facility] CARDIOPULMONARY REHAB Comment on above: Hx of CABG (Primary Dx) Start: 06-11-2023 End: 06-11-2023 Patient encounter procedure Kezia Cline APRN.RECORDER GRAVITY PROSPECTING Work Phone: Cardiothoracic Comment on above: Visit for wound chec k (Primary Dx); S/P CABG x 3 Start: 06-05-2023 End: 06-05-2023 Patient encounter procedure Kezia Cline APRN.RECORDER GRAVITY PROSPECTING Work Phone: Cardiothoracic Comment on above: Visit for wound chec k (Primary Dx) Start: 06-03-2023 End: 06-03-2023 Patient encounter procedure Eber Salcido DO Work Phone: Kidney Medicine [facility] Comment on above: Stage 3 chronic kidn ey disease, unspecified whether stage 3a or 3b CKD (HCC) (Primary Dx); Primary hypertension Start: 05-31-2023 End: 05-31-2023 Patient encounter procedure Kezia Cline APRN.RECORDER GRAVITY PROSPECTING Work Phone: Cardiothoracic Comment on above: Visit for wound chec k (Primary Dx) Start: 05-30-2023 [facility]mission [facility] Kezia Cline APRN.RECORDER GRAVITY PROSPECTING Work Phone: Cardiothoracic Comment on above: Surgery incision Start: 05-30-2023 ambulatory Kezia chery APRN.KEYUR Work Phone: [facility] Start: 05-24-2023 Telephone encounter Christian marroquin MD Work Phone: Cardiology Comment on above: Post Dc Program Call - Needs Attn Start: 05-21-2023 End: 05-21-2023 Patient encounter procedure Rush Pelayo PA-C Work Phone: Urology Comment on above: Frequent UTI (Primar y Dx); BPH with urinary obstruction Start: 05-06-2023 Telephone encounter [facility] Comment on above: Cardiac Rehab (2nd c all and letter sent) Start: 05-01-2023 End: 05-01-2023 Patient encounter procedure Kezia Cline SUPERVISOR STAVE CUTTING.RECORDER GRAVITY PROSPECTING Work Phone: Cardiothoracic Comment on above: S/P CABG x 3 (Primar y Dx); Essential hypertension; Postoperative atrial fibrillation (HCC); SOLIS (acute kidney injury) (HCC); Stage 3a chronic kidney disease (HCC); Recurrent urinary tract infection Start: 05-01-2023 End: 05-01-2023 Subsequent hospital visit by physician Xr Chest Main J1 Work Phone: Radiology Comment on above: Surgery follow-up [Z 09] Start: 04-30-2023 Telephone encounter Hayden Saldivar NOC Comment on above: Follow Up Phone Call (RC f/u all clear/) Start: 04-25-2023 Telephone encounter Olya Saldivar AMBULATORY NURSING A16 Comment on above: Follow Up Phone Call (RC follow up call all clear. /) Start: 04-15-2023 Telephone encounter Pharmacist [facility] Comment on above: Anticoagulation - In itial Consult Start: 05-11-2022 End: 05-11-2022 ambulatory [facility] Work Phone: Start: 05-11-2022 End: 05-11-2022 Patient encounter procedure [facility]-Laboratory Procedures Date Procedure Procedure Detail Performing Clinician Start: 07-07-2024 N-invas physiologic std lxtr art compl bi Marilyn Dove MD Work Phone: Start: 01-13-2024 End: 01-13-2024 Iadna nos amplified probe tq each organism Gato Zaldivar MD Work Phone: Start: 10-08-2023 Urine culture Start: 06-03-2023 Urnls dip stick/tabl et rgnt auto w/o microscopy Eber Salcido DO Work Phone: Start: 05-21-2023 Urnls dip stick/tabl et rgnt auto w/o microscopy Rush Pelayo PA-C Work Phone: History of coronary artery bypass grafting S/P CABG x 3 Kezia Cline APRN.RECORDER GRAVITY PROSPECTING Work Phone: History of coronary artery bypass grafting S/P CABG x 3 Kezia Umana Son SUPERVISOR STAVE CUTTING.RECORDER GRAVITY PROSPECTING Work Phone: History of coronary artery bypass grafting Hx of CABG [facility] History of coronary artery bypass grafting Hx of CABG [facility] History of coronary artery bypass grafting Hx of CABG [facility] History of coronary artery bypass grafting Hx of CABG [facility] History of coronary artery bypass grafting Hx of CABG [facility] History of coronary artery bypass grafting S/P CABG x 3 Kezia Umana Son SUPERVISOR STAVE CUTTING.RECORDER GRAVITY PROSPECTING Work Phone: History of coronary artery bypass grafting Hx of CABG [facility] History of coronary artery bypass grafting Hx of CABG [facility] History of coronary artery bypass grafting Hx of CABG [facility] History of coronary artery bypass grafting Hx of CABG [facility] History of coronary artery bypass grafting Hx of CABG [facility] History of coronary artery bypass grafting Hx of CABG [facility] History of coronary artery bypass grafting Hx of CABG [facility] History of coronary artery bypass grafting Hx of CABG [facility] History of coronary artery bypass grafting Hx of CABG [facility] History of coronary artery bypass grafting Hx of CABG [facility] History of coronary artery bypass grafting Hx of CABG [facility] History of coronary artery bypass grafting Hx of CABG [facility] History of coronary artery bypass grafting Hx of CABG [facility] History of coronary artery bypass grafting Hx of CABG Marilyn Dove MD Work Phone: Plan of Treatment Date Care Activity Detail Author Start: 01-30-2027 RSV Vaccine (1 - 1-d ose 75+ series) RSV Vaccine (1 - 1-dose 75+ series) [facility] Start: 12-14-2025 Creatinine measurement Serum Creatin ine [facility] Start: 05-26-2025 Screening for malign ant neoplasm of colon [facility] Start: 04-05-2025 Influenza vaccination Influenz a Vaccine (Season Ended) [facility] Start: 03-26-2025 End: 03-26-2025 Patient encounter procedure Vascular Medicine Comment on above: DX: HEART FAILURE Start: 12-31-2024 Complete blood count Hemoglobin/Jonathan tocrit [facility] Start: 12-31-2024 Creatinine measurement Serum Creatin ine [facility] Start: 12-14-2024 End: 12-14-2024 Patient encounter procedure 12/14/2024 2:30 PM EDT Office Visit Cardiology [address] [place] [address] Marilyn Dove MD [address] [place] [address] DX: Chronic systolic HF (heart failure) Cardiology Comment on above: DX: Chronic systolic HF (heart failure) Start: 12-14-2024 End: 12-14-2025 Echocardiography ECHO Cardiology Routine Coronary artery dise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 Change in heart murmur Expected: 12/14/2024, Expires: 12/14/2025 [facility] Work Phone: Comment on above: Expected: 12/14/2024 , Expires: 12/14/2025 Start: 09-12-2024 BP Controlled (<130/80) BP Controlle d (<130/80) [facility] Start: 08-05-2024 Advance Directive Discussion Advance Directive Discussion [facility] Start: 07-23-2024 BP Controlled (<130/80) BP Controlle d (<130/80) [facility] Start: 07-07-2024 End: 07-07-2024 Patient encounter procedure 07/07/2024 3:00 PM EST Appointment [facility] [address] [place] [address] Leg pain, bilateral [M79.604, M79.605] [facility] Comment on above: Leg pain, bilateral [M79.604, M79.605] Start: 07-05-2024 Creatinine measurement Serum Creatin ine [facility] Start: 07-05-2024 Serum Creatinine Serum Creatinine [facility] Start: 06-26-2024 End: 06-26-2024 Patient encounter procedure 06/26/2024 2:15 PM EST Office Visit Cardiology [address] [place] [address] Marilyn Dove MD [address] [place] [address] Main, Nurse Card Chf [address] [place] [address] DX: Non-ischemic cardiomyopathy Cardiology Comment on above: DX: Non-ischemic car diomyopathy Start: 06-03-2024 Hepatitis B screening Urine Albumin:Creatinine Ratio [facility] Start: 06-03-2024 Serum Creatinine Serum Creatinine [facility] Start: 05-29-2024 BP Controlled (<130/80) BP Controlle d (<130/80) [facility] Start: 05-15-2024 Serum Creatinine Serum Creatinine [facility] Start: 05-01-2024 Complete blood count Hemoglobin/Jonathan tocrit [facility] Start: 05-01-2024 [facility] Start: 05-01-2024 Serum Creatinine Serum Creatinine [facility] Start: 04-24-2024 [facility]oc[facility] Start: 04-24-2024 Serum Creatinine Serum Creatinine [facility] Start: 04-16-2024 End: 04-16-2024 Patient encounter procedure 04/16/2024 10:45 AM EDT Office Visit Dermatology [address] [place] [address] Vahe Genao MD [address] [place] [address] Scaly patch rash Dermatology Comment on above: Scaly patch rash Start: 04-05-2024 Covid-19 Vaccine ( season) Covid-19 Vaccine ( season) [facility] Start: 04-05-2024 Influenza vaccination Influenza Vacc ine (#1) [facility] Start: 04-02-2024 Hepatitis B surface antibody level LDL Cholesterol [facility] Start: 01-13-2024 End: 01-13-2024 Patient encounter procedure 01/13/2024 10:30 AM EDT Office Visit Infectious Disease [address] [place] [address] [place] [address] [place] [address] Bacteremia Follow Up Infectious Disease Comment on above: Bacteremia Follow Up Start: 12-31-2023 End: 03-31-2024 PSA/PROSTATE SPECIFIC ANTIGEN SCREENING PSA/PROSTATE SPECIFIC ANTIGEN SCREENING Lab Routine Coronary artery dise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 Herpes zoster with complication Expected: 12/31/2023, Expires: 03/31/2024 [facility] Work Phone: Comment on above: Expected: 12/31/2023 , Expires: 03/31/2024 Start: 10-03-2023 Hemoglobin A1c measurement HbA1C [facility] Start: 10-03-2023 Hemoglobin A1c/Hemoglobin.total in Blood HbA1C [facility] Start: 08-05-2023 Advance Directive Discussion Advance Directive Discussion [facility] Start: 08-05-2023 Behavioral Health Screening Behavioral Health Screening [facility] Start: 08-05-2023 Depression Assessment Depression Ass essment [facility] Start: 06-03-2023 End: 09-02-2023 ALBUMIN/CREAT RATIO RND UR [facility] Work Phone: Comment on above: Expected: 06/03/2023 , Expires: 09/02/2023 Start: 06-03-2023 End: 09-02-2023 Comprehensive metabolic 2000 panel - Serum or Plasma COMP METABOLIC PANEL Lab Routine Stage 3 chronic kidney disease, unspecified whether stage 3a or 3b CKD (HCC) Expected: 06/03/2023, Expires: 09/02/2023 [facility] Work Phone: Comment on above: Expected: 06/03/2023 , Expires: 09/02/2023 Start: 05-01-2023 End: 07-01-2023 Comprehensive metabolic 2000 panel - Serum or Plasma COMP METABOLIC PANEL Lab Routine SOLIS (acute kidney injury) (HCC) Expected: 05/01/2023, Expires: 07/01/2023 [facility] Work Phone: Comment on above: Expected: 05/01/2023 , Expires: 07/01/2023 Start: 04-05-2023 Covid-19 Vaccine () Covid-19 Vaccine () [facility] Start: 04-05-2023 Influenza vaccination Influenza Vacc ine (#1) [facility] Start: 08-05-2022 Advance Directive Discussion Advance Directive Discussion [facility] Start: 08-05-2022 Depression Assessment Depression Ass essment [facility] Start: 2012 Hepatitis B Vaccine (1 of 3 - Risk 3-dose series) Hepatitis B Vaccine (1 of 3 - Risk 3-dose series) [facility] Start: 2012 RSV Vaccine (1 - 1-d ose 60+ series) RSV Vaccine (1 - 1-dose 60+ series) [facility] Start: 01-30-2002 Shingrix Vaccine (1 of 2) Smith grix Vaccine (1 of 2) [facility] Start: 01-30-1997 Cologuard (FIT-DNA) Cologuard (FIT-D NA) [facility] Start: 01-30-1997 Colonoscopy Colonoscopy [facility] Start: 01-30-1997 Colorectal Cancer Screening Colorectal Cancer Screening [facility] Start: 01-30-[address] COLONOGRAPHY [facility] Start: 01-30-1997 Fecal Occult Blood Fecal Occult Bloo d [facility] Start: 01-30-1997 Screening for malign ant neoplasm of colon [facility] Start: 01-30-1997 SIGMOIDOSCOPY SIGMOIDOSCOPY [facility] Start: 01-30-1971 Urine microalbumin profile DTaP,Tdap,Td Vaccine (1 - Tdap) [facility] Start: 01-30-1970 Annual PCP Team [employer] tisha Disease Visit Annual PCP Team Chronic Disease Visit [facility] Start: 01-30-1970 Anxiety Screening Anxiety Screening [facility] Start: 01-30-1970 BP Controlled (<130/80) BP Controlle d (<130/80) [facility] Start: 01-30-1970 Depression Screening Depression Scre ening [facility] Start: 01-30-1970 Hepatitis C Screening Hepatitis C Sc [facility] Start: 01-30-1970 Hepatitis C screening Hepatitis C [facility] Start: 01-30-1962 3 comp foot exam completed Diabetic Foot Exam [facility] Start: 01-30-1962 Diabetic foot examination Diabetic F oot Exam [facility] Start: 01-30-1962 Glaucoma screening Dilated Retinal E xam [facility] Start: 01-30-1962 Hepatitis B screening Urine Albumin:Creatinine Ratio [facility] Start: 01-30-1962 Hepatitis C antibody , confirmatory test Dilated Retinal Exam [facility] Start: 01-30-1958 Pneumococcal Vaccine : 65+ (1 - PCV) Pneumococcal Vaccine: 65+ (1 - PCV) [facility] Start: 1952 Covid-19 Vaccine (#1) Covid-19 Vacci ne (#1) [facility] Bacteria identified in Wound by Culture ABSCESS AND WOUND CULTURE WITH GRAM STAIN Microbiology Routine Visit for wound check 05/31/2023 12:35 PM EDT [facility] Work Phone: ECG COMPLETE ECG COMPLETE ECG Routine Palpitations 12/14/2024 5:04 PM EDT [facility] End: 12-14-2025 HOLTER MONITOR 48 HOUR HOLTER MONITOR 48 HOUR ECG Routine Coronary artery dise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 Essential hypertension 1 Occurrences starting 12/14/2024 until 12/14/2025 [facility] Comment on above: 1 Occurrences starti ng 12/14/2024 until 12/14/2025 OUTSIDE VENDOR CARDI AC OUTPATIENT EXTENDED RHYTHM RECORDING (WITHOUT TELEMETRY) OUTSIDE VENDOR CARDIAC OUTPATIENT EXTENDED RHYTHM RECORDING (WITHOUT TELEMETRY) Holter Routine Coronary artery dise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 Heart palpitations Ordered: 12/14/2024 [facility] Comment on above: Ordered: 12/14/2024 POST VOID RESIDUAL POST VOID RES IDUAL Procedures Routine Frequent UTI Ordered: 05/21/2023 [facility] Work Phone: Comment on above: Ordered: 05/21/2023 PSA/PROSTATE SPECIFI C ANTIGEN SCREENING PSA/PROSTATE SPECIFIC ANTIGEN SCREENING Lab Routine Coronary artery dise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 Herpes zoster with complication 01/01/2024 2:00 PM EDT [facility] Radiologic exam ches t 2 views XR CHEST 2V FRONTAL/LAT Radiology Routine Surgery follow-up 05/01/2023 10:31 AM EDT [facility] Work Phone: End: 06-26-2025 US.doppler Extremity arteries - bilateral for physiologic artery study at rest and with exercise PVR LEG W/EXC [facility] Lab Routine Leg pain, bilateral 1 Occurrences starting 06/26/2024 until 06/26/2025 [facility] Work Phone: Comment on above: 1 Occurrences starti ng 06/26/2024 until 06/26/2025 US.doppler Extremity arteries - bilateral for physiologic artery study at rest and with exercise PVR LEG W/EXC [facility] V[facility] Lab Routine Leg pain, bilateral 07/07/2024 3:33 PM EST [facility] Work Phone: [facility] Immunizations Immunization Date Immunization Notes Care Provider Finn enriquez 01-13-2024 zoster RZV vaccine, PF, (SHINGRIX) 50 mcg/0.5 mL injection Gato Zaldivar MD Work Phone: [facility] 05-01-2023 influenza (HD-IIV4) vaccine, age 65+ yr, high dose, quadrivalent, PF (FLUZONE HIGH-DOSE) Xr J1 Work Phone: [facility] 05-01-2023 pneumococcal (PCV20) vaccine, 20 valent (PREVNAR 20) Xr J1 Work Phone: [facility] 05-01-2023 influenza virus vacc ine, unspecified formulation Marilyn Dove MD Work Phone: [facility] Payers Date Payer Category Payer Self-pay [id number] 2019 Medicare HUMANA MEDICARE HUMANA MEDICARE PPO [id number] 2019-Present [phone] [address] [address] [place] [address] PPO [id number] 2019 Medicare (Managed Care) KELSI PRAKASH Member Subscriber Plan / Payer (Effective 2019-Present) Name: Dino Blandon Relation to Subscriber: Self Name: Dino Blandon Payer ID: [id number] ([facility]) Type: PPO Address: [place] [id number] 2019 Medicare [id number] Medicare MEDICARE PART A B [id number] Unknown [id number] Unknown [id number] Unknown [id number] Unknown [id number] Unknown [id number] Unknown [id number] Unknown [id number] Unknown [id number] Social History Date Type Detail Facility Start: 12-07-2020 End: 12-07-2020 Tobacco smoking status NHIS Unknown if ever smoked [facility] Start: 08-06-2019 Spouse/ Signif icant Other [facility] Start: 12-07-2020 Non-smoker [facility] Start: 1950 Sex Assigned At Male W [facility] Start: 04-20-2023 End: 05-21-2023 Tobacco smoking status NHIS Never smoked tobacco [facility] Work Phone: Start: 04-23-2023 End: 12-14-2024 Alcohol intake Lifetime non-drinker (finding) [facility] Start: 04-23-2023 End: 05-31-2023 History of Social function [facility] Start: 04-23-2023 End: 05-31-2023 Tobacco use panel [facility] How hard is it for you to pay for the very basics like food, housing, medical care, and heating Not hard at all [facility] (I/We) worried whether (my/our) food would run out before (I/we) got money to buy more. Never true [facility] In the past 12 months, was there a time when you were not able to pay the mortgage or rent on time? No [facility] Start: 1950 Sex Assigned At Not on file [facility] Start: 05-21-2023 Tobacco use and exposure Smokeless tobacco non-user [facility] Medical Equipment Procedure Code Equipment Code Equipment Origin al Text Equipment Identifier Dates [facility] Thk1.65mm P tfe 4x.5in Cardiovascular Sterile - [id number] Start: 04-09-2023 Use as instructe d twice daily [id number], [id number] Start: 04-24-2023 Comment on above: Use as instructed tw ice daily Goals Date Patient Goal Desired Activity /State Personal health goal Clinical Notes 04-20-2023 to 12-17-2024 Telephone Encounter - Sylvia Jha RN - 12/17/2024 9:04 AM EDTTelephone Encounter - Sylvia Jha RN - 12/17/2024 9:04 AM EDTPatient Marilyn Hernandez MD - 12/14/2024 3:03 PM EDT Note Date & Type Note Facility 12-17-2024 Telephone encounter Note Images from the original note were not included. Marilyn Dove MD P Hvi J3-4 Opd Nurses Mild increase in creatinine very important to keep a consistent fluid intake. THanks! [facility] 12-17-2024 Miscellaneous Notes Images from the original note were not included. Marilyn Dove MD P Hvi J3-4 Opd Nurses Mild increase in creatinine very important to keep a consistent fluid intake. THanks! documented in this encounter [facility] 12-14-2024 Instructions Marilyn Dove MD - 12/14/2024 4:18 PM EDT PLAN 1- Consult the spine center for evaluation of neurogenic claudication. 2- Echocardiogram- to evaluate change heart murmur. 3- Monitor your blood pressure at home- and every 2 weeks send me your blood pressure log. 4- Continue current medications. 5- Try to do aquatic exercise.- swimming pool. 6- EKG - J1 7- Holter J2 8- Blood work J1 9-Follow up in 3 months or sooner if needed. Marilyn Dove MD [phone] documented in this encounter [facility] 12-14-2024 Note HNO ID: [id number] Author: MARILYN DOVE MD Service: ? Author Type: Physician Type: Progress Notes Filed: 12/16/2024 09:36 Note Text: Heart and Vascular [facility] SECTION OF HEART FAILURE and CARDIAC TRANSPLANT MEDICINE OUTPATIENT VISIT DATE December 14, 2024 OUTPATIENT VISIT TYPE Established Patient PRIMARY CARE PHYSICIAN: Santino Fermin [address] [facility] [place] [address] CHIEF COMPLAINT: Fatigue Leg pain. NURSING INTAKE (Patient?s concerns and/or recent hospitalizations/ER visits): HF Nursing Assessment: Interim Hospitalizations and/or ER visits: Aug adult RSV and pneumonia Chest Pain: no Skipping or irregular heartbeats: yes Shortness of breath at rest: no Shortness of breath with activity: no Cough: no Waking up in the middle of the night gasping for air: no Lightheadedness or dizziness: yes, every now and then Feeling like you are going to pass out: no Actually passing out: no Poor energy level: yes Unintentional weight gain: no Unintentional weight loss: no Swelling in your legs,feet, abdomen: no Filling up quickly when you eat: yes, sometimes HISTORY OF PRESENT ILLNESS: 74 year old male with history of HTN, obesity Class II, diabetes mellitus type 2, CAD sp 04/09/2023: CABG x3 (RODARTE-LAD / SVG-RAMUS / SVG-RC); 04/09/2023: Large Right pneumothorax, s/p pigtail in CVICU; 04/10/2023: Recurrence of right PTX; 2nd pigtail in right anterior chest in CVICU. Shingles. The patient reports a significant decline in mobility over the past year due to leg pain and fatigue. He describes the pain as an aching sensation that starts in the legs and radiates to the hips, worsening throughout the day. The pain is more pronounced after walking and improves with rest. He denies any numbness but notes that his legs feel tired and weak. He has difficulty walking long distances and has reduced his physical activity significantly. He continues to climb stairs at work but does so slowly due to discomfort. A recent REEMA at rest was within normal limits. He also reports experiencing palpitations, describing them as skipped heartbeats occurring intermittently throughout the day, more frequently in the evening. He has noticed these palpitations for several months. He has not been monitoring his blood pressure at home recently. He expresses a desire to increase his physical activity but feels limited by his symptoms. PAST MEDICAL HISTORY Diagnosis Date Chronic kidney disease, stage III (moderate) (HCC) Essential hypertension Pneumothorax on right PAST SURGICAL HISTORY Procedure Laterality Date CABG (3) VEIN GRAFTS AND ARTERIAL GRAFT(S) 04/09/2023 (RODARTE-LAD / SVG-RAMUS / SVG-RC) SOCIAL HISTORY Social History Tobacco Use Smoking status: Never Smokeless tobacco: Never Vaping Use Vaping status: Never Used Substance Use Topics Alcohol use: Never Drug use: Never FAMILY HISTORY Problem Relation Age of Onset other (Myocardial infarction) Mother Diabetes Mother other (CABG) Brother Heart Failure Brother Heart disease Brother PPM amnd fabian replacement ALLERGIES: ALLERGIES No Known Allergies CURRENT MEDICATIONS: atorvastatin (LIPITOR) 40 mg tablet TAKE 1 TABLET BY MOUTH ONCE DAILY AT BEDTIME amLODIPine (NORVASC) 10 mg tablet Take 1 tablet by mouth once daily. carvedilol (COREG) 12.5 mg tablet Take 1 tablet in the morning and 1/2 tablet at night. (Patient taking differently: Take 1 tablet in the morning and 1 tablet at night.) glimepiride (AMARYL) 1 mg tablet Take 1 tablet by mouth daily with breakfast. blood sugar diagnostic (ACCU-CHEK GUIDE TEST STRIPS) test strip Use as instructed twice daily tamsulosin (FLOMAX) 0.4 mg Take 1 capsule by mouth daily at bedtime. (Patient taking differently: Take 0.4 mg by mouth one time a week.) acetaminophen (TYLENOL) 325 mg tablet Take 2 tablets by mouth every 6 hours as needed for pain. aspirin 81 mg chewable tablet 1 tablet by ORAL/FEEDING TUBE route once daily. Lancets (ACCU-CHEK SOFTCLIX LANCETS) lancets Use as instructed twice daily REVIEW OF SYSTEMS: ROS HEART FAILURE PATIENT ENTERED DATA: No data to display No data to display No data to display PHYSICAL EXAMINATION: BP 168/85 (BP Site: Right Arm) Pulse (!) 51 Ht 163.8 cm (5' 4.5) Wt 97.9 kg (215 lb 12.8 oz) SpO2 98% BMI 36.47 kg/m? General: Well appearing, in no acute distress. Skin: No clubbing, no cyanosis. Eyes: Extra ocular movements intact Oropharynx: Teeth in good repair. Neck: No jugular venous distention, no carotid bruits, carotids have a normal upstroke, no palpable thyromegaly. Lungs: Clear to auscultation bilaterally, no wheezing or rhonchi. Heart: Regular rhythm, PMI not displaced, S1, S2 normal, no S3, no S4, no heaves, no rub and no murmur. Abdomen: Soft, nontender, bowel sounds normal, no palpable org (more content not included)... [facility] 12-14-2024 History of Presen t illness Narrative Images from the original note were not included. Heart and Vascular [facility] SECTION OF HEART FAILURE and CARDIAC TRANSPLANT MEDICINE OUTPATIENT VISIT DATE December 14, 2024 OUTPATIENT VISIT TYPE Established Patient PRIMARY CARE PHYSICIAN: Santino Fermin [facility] [place] [address] CHIEF COMPLAINT: Fatigue Leg pain. NURSING INTAKE (Patient s concerns and/or recent hospitalizations/ER visits): HF Nursing Assessment: Interim Hospitalizations and/or ER visits: Aug adult RSV and pneumonia Chest Pain: no Skipping or irregular heartbeats: yes Shortness of breath at rest: no Shortness of breath with activity: no Cough: no Waking up in the middle of the night gasping for air: no Lightheadedness or dizziness: yes, every now and then Feeling like you are going to pass out: no Actually passing out: no Poor energy level: yes Unintentional weight gain: no Unintentional weight loss: no Swelling in your legs,feet, abdomen: no Filling up quickly when you eat: yes, sometimes HISTORY OF PRESENT ILLNESS: 74 year old male with history of HTN, obesity Class II, diabetes mellitus type 2, CAD sp 04/09/2023: CABG x3 (RODARTE-LAD / SVG-RAMUS / SVG-RC); 04/09/2023: Large Right pneumothorax, s/p pigtail in CVICU; 04/10/2023: Recurrence of right PTX; 2nd pigtail in right anterior chest in CVICU. Shingles. The patient reports a significant decline in mobility over the past year due to leg pain and fatigue. He describes the pain as an aching sensation that starts in the legs and radiates to the hips, worsening throughout the day. The pain is more pronounced after walking and improves with rest. He denies any numbness but notes that his legs feel tired and weak. He has difficulty walking long distances and has reduced his physical activity significantly. He continues to climb stairs at work but does so slowly due to discomfort. A recent REEMA at rest was within normal limits. He also reports experiencing palpitations, describing them as skipped heartbeats occurring intermittently throughout the day, more frequently in the evening. He has noticed these palpitations for several months. He has not been monitoring his blood pressure at home recently. He expresses a desire to increase his physical activity but feels limited by his symptoms. PAST MEDICAL HISTORY Diagnosis Date Chronic kidney disease, stage III (moderate) (HCC) Essential hypertension Pneumothorax on right PAST SURGICAL HISTORY Procedure Laterality Date CABG (3) VEIN GRAFTS & ARTERIAL GRAFT(S) 04/09/2023 (RODARTE-LAD / SVG-RAMUS / SVG-RC) SOCIAL HISTORY Social History Tobacco Use Smoking status: Never Smokeless tobacco: Never Vaping Use Vaping status: Never Used Substance Use Topics Alcohol use: Never Drug use: Never FAMILY HISTORY Problem Relation Age of Onset other (Myocardial infarction) Mother Diabetes Mother other (CABG) Brother Heart Failure Brother Heart disease Brother PPM amnd fabian replacement ALLERGIES: ALLERGIES No Known Allergies CURRENT MEDICATIONS: atorvastatin (LIPITOR) 40 mg tablet TAKE 1 TABLET BY MOUTH ONCE DAILY AT BEDTIME amLODIPine (NORVASC) 10 mg tablet Take 1 tablet by mouth once daily. carvedilol (COREG) 12.5 mg tablet Take 1 tablet in the morning and 1/2 tablet at night. (Patient taking differently: Take 1 tablet in the morning and 1 tablet at night.) glimepiride (AMARYL) 1 mg tablet Take 1 tablet by mouth daily with breakfast. blood sugar diagnostic (ACCU-CHEK GUIDE TEST STRIPS) test strip Use as instructed twice daily tamsulosin (FLOMAX) 0.4 mg Take 1 capsule by mouth daily at bedtime. (Patient taking differently: Take 0.4 mg by mouth one time a week.) acetaminophen (TYLENOL) 325 mg tablet Take 2 tablets by mouth every 6 hours as needed for pain. aspirin 81 mg chewable tablet 1 tablet by ORAL/FEEDING TUBE route once daily. Lancets (ACCU-CHEK SOFTCLIX LANCETS) lancets Use as instructed twice daily REVIEW OF SYSTEMS: ROS HEART FAILURE PATIENT ENTERED DATA: No data to display No data to display No data to display PHYSICAL EXAMINATION: BP 168/85 (BP Site: Right Arm) Pulse (!) 51 Ht 163.8 cm (5' 4.5) Wt 97.9 kg (215 lb 12.8 oz) SpO2 98% BMI 36.47 kg/m General: Well appearing, in no acute distress. Skin: No clubbing, no cyanosis. Eyes: Extra ocular movements intact Oropharynx: Teeth in good repair. Neck: No jugular venous distention, no carotid bruits, carotids have a normal upstroke, no palpable thyromegaly. Lungs: Clear to auscultation bilaterally, no wheezing or rhonchi. Heart: Regular rhythm, PMI not displaced, S1, S2 normal, no S3, no S4, no heaves, no rub and no murmur. Abdomen: Soft, nontender, bowel sounds normal, no palpable organomegaly, no bruits. Extremities: No peripheral edema . Grade 2/4 distal pulses bilaterally. Neuro: Oriented to person, place and time, alert, cooperative, gait coordinated. CARDIOVASCULAR MEDICINE TESTING: I have personally reviewed the Pulsed Volume Recording (PVR)/Ankle Brachial Index (REEMA). Last ECHO Result Conclusion ECHO Collected: 12/31/2023 10:00 AM (Final result) Impression: CONCLUSIONS: - Exam indication: s/p CABG (2022) - The left ventricle is normal in size. There is mild left ventricular hypertrophy. Left ventricular systolic function is normal. EF = 57 5% (2D biplane) Grade I left ventricular diastolic dysfunction. - The right ventricle is normal in size. Right ventricular systolic function is normal. - Exam was compared with the prior echocardiographic exam performed on 04/20/2023. There is more AR and mild on today's exam. * * * Final * * * Last EKG Result Conclusion ECG COMPLETE Collected: 05/01/2023 10:21 AM (Final result) Impression: NORMAL SINUS RHYTHM LEFT AXIS DEVIATION CANNOT EXCLUDE INFERIOR MYOCARDIAL INFARCTION , AGE UNDETERMINED ABNORMAL ECG Confirmed by JULIANE HOBBS, [facility] ([id number]) on 05/06/2023 3:53:47 PM IMPRESSION: NYHA Functional Class: I Stage: A heart failure CAD sp CABG 04/2023- Aspirin but not statin- intolerant. Saphectomy wound healed Hypertension controlled DM type 2 CKD III Shingles resolved 1. Coronary artery dise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 (I25.10) Hx of CABG (Z95.1) Patient has a history of coronary artery disease and has undergone CABG. No current angina pectoris reported. - Continue current management. 2. Essential hypertension (I10) Blood pressure monitoring at home has been inconsistent. - Advised patient to monitor and record blood pressure daily, preferably in the morning. - Patient to send a blood pressure log every 2 weeks for review. 3. Neurogenic claudication (R29.818) Patient experiences leg pain and weakness, particularly when walking. REEMA was within normal limits at rest. Pain is described as aching and tiredness in the legs and hips, worsening throughout the day. - Recommended aquatic exercises to reduce stress on joints and maintain physical activity. - Continue to monitor symptoms and encourage consistent physical activity to prevent muscle weakness. 4. Change in heart murmur (R01.1) Murmur auscultated during examination. - Ordered echocardiogram to evaluate the current status of the heart murmur. 5. Palpitations (R00.2) Heart palpitations (R00.2) Patient reports palpitations described as skipped beats, occurring more frequently towards the evening. Palpitations have been present for several months. - Ordered Holter monitor to assess the frequency and nature of the palpitations. - Ordered blood work to check electrolytes, including potassium and magnesium levels. PLAN AND RECOMMENDATIONS: We discussed your leg pain and difficulty walking: - Your ankle-brachial index test at [facility] showed normal blood flow to your legs at rest, which is encouraging. However, you are still experiencing pain and weakness when walking. - I recommend starting low-impact exercise in a swimming pool, such as walking or swimming, three times a week. This can help strengthen your muscles and reduce stress on your joints. - It is important to stay consistent with physical activity to prevent further muscle weakness and joint stress. Please try to incorporate regular movement into your routine. We discussed your heart skipping beats: - You reported feeling skipped heartbeats (PVCs) more frequently in the evenings over the past several months. - I will order a Holter monitor to evaluate your heart rhythm and determine the frequency and pattern of these skipped beats. - I will also order blood work to check your potassium, magnesium, and other electrolytes, as imbalances can contribute to heart rhythm issues. - We will recheck your echocardiogram (ultrasound of the heart) to monitor your heart valve and overall heart function. We discussed your blood pressure: - Please resume checking your blood pressure at home daily, preferably in the morning. Record your readings and send me a log of your blood pressure values in two weeks. This will help us assess your blood pressure trends and guide any necessary adjustments to your treatment plan. Next steps: - Complete the blood work and Holter monitor as ordered. - Begin pool-based exercises three times a week to improve leg strength and mobility. - Monitor and log your blood pressure daily, and send me the results in two weeks. - We will follow up after reviewing your test results and monitoring data to determine the next steps in your care. Please call our office if your symptoms worsen or if you have any questions. I personally interviewed, confirmed and edited the above information as obtained by others Marilyn Dove MD [facility] Heart Failure Section Of Heart Failure and Cardiac Transplant Medicine Heart and Vascular [place] [facility] Desk [address] [place] [address] documented in this encounter [facility] 12-14-2024 Note HNO ID: [id number] Author: KECIA CONSTANTINO MD Service: ? Author Type: Physician Type: Procedures Filed: 01/05/2025 11:08 Note Text: Nonsustained atrial tachycardia Agree with interpretations Kecia Constantino MD Patient Name: Dino Blandon : 1950 Ordering Provider: MARILYN DOVE Indication: I25.10 Atherosclerotic heart disease of [place] coronary artery w/o Type of Monitor: Extended Monitoring-Zio Patch Enrollment Dates: 12/25/2024-12/27/2024 IRHYTHM FINDINGS: Patient had a min HR of 41 bpm, max HR of 118 bpm, and avg HR of 56 bpm. Predominant underlying rhythm was Sinus Rhythm. 3 Supraventricular Tachycardia runs occurred, the run with the fastest interval lasting 4 beats with a max rate of 118 bpm, the longest lasting 6 beats with an avg rate of 95 bpm. Isolated SVEs were frequent (6.3%, 71257), SVE Couplets were occasional (2.2%, 2041), and no SVE Triplets were present. Isolated VEs were occasional (1.0%, 1881), VE Couplets were rare (<1.0%, 15), and no VE Triplets were present. Ventricular Bigeminy and Trigeminy were present. [facility] 11-16-2024 Telephone encounter Note Outside Medical Clearance scanned into [employer] [facility] 11-16-2024 Miscellaneous Notes Outside Medical Clearance scanned into [employer] documented in this encounter [facility] 08-23-2024 Note [facility] Medical Records Department [address] [place] [address] Discharge Summary 08/23/24 1132 MR#: [id number] Acct: [id number] Name: DINO BLANDON Rep #: [id number] : 1950 74 From: Leo Nuñez MD PCP: Dr. Santino Fermin DO Status:ADM IN Location: [place] [address] Providers Date of Admission: 08/20/24 Date of Discharge: 08/23/24 Primary Care Physician: Dr. Santino Fermin DO Reason For Visit: ACUTE HYPOXIC RESPIRATORY FAILURE Diagnosis Discharge Diagnosis (1) Acute hypoxemic respiratory failure: Status: Acute Code(s): J96.01 - Acute respiratory failure with hypoxia (2) Pneumonia: Status: Acute Code(s): J18.9 - Pneumonia, unspecified organism (3) Leukocytosis: Status: Acute Code(s): D72.829 - Elevated white blood cell count, unspecified (4) Hyponatremia: Status: Acute Code(s): E87.1 - Hypo-osmolality and hyponatremia Plan 80-year-old gentleman was admitted with increasing shortness of breath, cough, hypoxia SpO2 80s on room air and fever. Diagnosed with ear infection pneumonia in urgent care a day before admission. Acute hypoxic respiratory failure secondary to pneumonia/ER infection, probably otitis media complicated with failure of outpatient therapy: Patient is being admitted in PCU. Chest x-ray images reviewed and shows bibasilar infiltrate predominant RLL. Respiratory panel positive of human metapneumovirus. Triple PCR for SARS-CoV-2, flu and RSV are negative. Urinary antigens are negative. Leukocytosis improving. Patient was on Augmentin and azithromycin for about 24 hours. Currently on Zosyn and azithromycin. On Mucinex DM. And symptomatic respiratory and PEP. On 6 to 7 L of oxygen. BNP and troponin normal. 08/22: Improvement in shortness of breath cough. No fever. Patient on 2 L of oxygen, improvement in hypoxia. Leukocytosis also improved. 08/23: Improvement on shortness of breath. Oxygen was weaned down. Pulse ox 96% on room air. 93% on room air ambulating. Does not need oxygen. Acute hypoxic respiratory failure resolved. Patient is discharged on levofloxacin and Mucinex DM. Advised to follow with PCP in 1 weeks. He will need appointment with ENT surgeon for ear infection for source control. Advised to follow-up with ENT in 2 weeks Mild hyponatremia: Admitting sodium 133 improved to 136 near normal. Hyponatremia resolved. 08/22 sodium 136. 08/23 serum sodium 139. In normal range. CKD stage IIIa -Renal function is at baseline with a creatinine of 1.50 -Monitor clinically -Avoid nephrotoxins 08/22: BUNs/creatinine 17/1.26. Creatinine improved. 08/23: BUNs/creatinine 16/1.07 DM-2 -Patient had hemoglobin A1c on 06/30/2024 which time was 5.8. - Hold home glimepiride -Accu-Chek before meals and at bedtime with Humalog sliding scale coverage and hypoglycemia protocol. Diabetic diet 08/22: Glucose is 113. 08/23: Glimepiride resumed yesterday. CAD/essential hypertension/hyperlipidemia -Patient with previous CABG -Continue home amlodipine -Continue home baby aspirin -Continue atorvastatin-continue home carvedilol History of pneumothorax on the left -Occurred post cardiothoracic surgery -No acute issues -Chest x-ray has inflated lung on admitting film MASH/MASLD AST 65. ALT normal. Baseline 12. Normal. Morbid obesity -BMI 38.1 KG per square with other comorbidities as mentioned -Recommend weight loss -Complicates treatment, prognosis, outcomes DVT prophylaxis -Lovenox 40 daily CODE STATUS -Full code as verified at the time of admission patient's Clinical diagnosis, labs, imaging and plan of care discussed with the patient's son via the bedside Discharge medication reconciliation done. Discharge follow-up instructions completed. Discharge process discussed with the patient and all questions were answered to patient's satisfaction. Follow with PCP in 1 to 2 weeks Total time spent, exact 35 minutes on discharge meds reconciliation, examination, coordination of care with nurses and ancillary staff, review of imaging and blood test and discussion with the patient on follow-up instructions. Microbiology Past 72 Hours 08/20/24 17:11 Urine, Clean Catch Urine Culture - Final Culture exhibits no growth. 08/20/24 04:00 Urine, Clean Catch Legionella Antigen - Final 08/20/24 04:00 Urine, Clean Catch Streptococcus pneumoniae Antigen (M - Final 08/20/24 22:20 Mucosa - Nasopharyngeal Respiratory Panel (PCR) - Final Human [place] 08/20/24 15:45 Mucosa - Nose SARS-CoV-2, Influenza RSV (PCR) - Final Laboratory Results 08/21/24 12:50: POC Glucose 150 H 08/22/24 06:38: POC Glucose 136 H 08/22/24 11:33: POC Glucose 192 H 08/22/24 16:47: POC Glucose 98 08/22/24 22:33: POC Glucose 123 H 08/23/24 06:05: POC Glucose 109 H 08/23/24 06:46: WBC 12.4 H, RBC 4.52 L, Hgb 13.2, Hct 39.6 L, MCV 87.6, MCH 29.2, MCHC 33.3, RDW Std Devia (more content not included)... [facility] 06-29-2024 Telephone encounter Note Images from the original note were not included. [facility] and gave updated information. Marilyn Dove MD You3 days ago He was taking amlodipine 5mg two tablets. I sent a prescription of 10mg 1 tablet per day. MD Tasha Wallace RN June 29, 2024 9:05 AM [facility] 06-29-2024 Miscellaneous Notes Images from the original note were not included. [facility] and gave updated information. Marilyn Dove MD You3 days ago He was taking amlodipine 5mg two tablets. I sent a prescription of 10mg 1 tablet per day. MD Tasha Wallace RN June 29, 2024 9:05 AM Please call [facility] pharmacy re: dosage of Amlodipine dosage. [phone]. Thank you, Mayra documented in this encounter [facility] 06-26-2024 Instructions Marilyn Dove MD - 06/26/2024 4:03 PM EST PLAN 1- Re-start atorvastatin 40mg 1 tablet per day. Please let me know if you are intolerant. 2- Measure your blood pressure 1 time per day in the morning Saturday, Saturday and Saturday. 3- Every month send me your blood pressure log. If BP > 140mmHg let me know. ( Goal <130/80) 4-Exertional leg pain- -Vascular study with exercise to be scheduled. 5- Follow up in 6 months or sooner if needed. Marilyn Dove MD [phone] documented in this encounter [facility] 06-26-2024 Telephone encounter Note Please call [facility] pharmacy re: dosage of Amlodipine dosage. [phone]. Thank you, Mayra [facility] Work Phone: 06-26-2024 Note HNO ID: [id number] Author: MARILYN DOVE MD Service: ? Author Type: Physician Type: Progress Notes Filed: 06/28/2024 20:40 Note Text: Heart and Vascular [facility] SECTION OF HEART FAILURE and CARDIAC TRANSPLANT MEDICINE OUTPATIENT VISIT DATE June 26, 2024 OUTPATIENT VISIT TYPE Established Patient PRIMARY CARE PHYSICIAN: Santino Fermin [address] [place] [address] [place] [address] CHIEF COMPLAINT: Exertional leg pain NURSING INTAKE (Patient?s concerns and/or recent hospitalizations/ER visits): HF Nursing Assessment: Interim Hospitalizations and/or ER visits:no Chest Pain: no Skipping or irregular heartbeats: yes Shortness of breath at rest: no Shortness of breath with activity: no Cough: no Waking up in the middle of the night gasping for air: no Lightheadedness or dizziness: yes, when get up in the morning Feeling like you are going to pass out: no Actually passing out: no Poor energy level: yes, sometimes Unintentional weight gain: no Unintentional weight loss: no Swelling in your legs,feet, abdomen: no Filling up quickly when you eat: no HISTORY OF PRESENT ILLNESS: 74 year old male with history of HTN, obesity Class II, diabetes mellitus type 2, CAD sp 04/09/2023: CABG x3 (RODARTE-LAD / SVG-RAMUS / SVG-RC); 04/09/2023: Large Right pneumothorax, s/p pigtail in CVICU; 04/10/2023: Recurrence of right PTX; 2nd pigtail in right anterior chest in CVICU. Shingles. His walking is limited because of leg pain. Sleeping for 4 hours and then he is awake. No issues with leg swelling PAST MEDICAL HISTORY Diagnosis Date Chronic kidney disease, stage III (moderate) (HCC) Essential hypertension Pneumothorax on right PAST SURGICAL HISTORY Procedure Laterality Date CABG (3) VEIN GRAFTS AND ARTERIAL GRAFT(S) 04/09/2023 (RODARTE-LAD / SVG-RAMUS / SVG-RC) SOCIAL HISTORY Social History Tobacco Use Smoking status: Never Smokeless tobacco: Never Vaping Use Vaping status: Never Used Substance Use Topics Alcohol use: Never Drug use: Never FAMILY HISTORY Problem Relation Age of Onset other (Myocardial infarction) Mother Diabetes Mother other (CABG) Brother Heart Failure Brother Heart disease Brother PPM amnd fabian replacement ALLERGIES: ALLERGIES No Known Allergies CURRENT MEDICATIONS: carvedilol (COREG) 12.5 mg tablet Take 1 tablet in the morning and 1/2 tablet at night. (Patient taking differently: Take 1 tablet in the morning and 1 tablet at night.) glimepiride (AMARYL) 1 mg tablet Take 1 tablet by mouth daily with breakfast. amLODIPine (NORVASC) 5 mg tablet Take 2 tablets by mouth once daily. blood sugar diagnostic (ACCU-CHEK GUIDE TEST STRIPS) test strip Use as instructed twice daily tamsulosin (FLOMAX) 0.4 mg Take 1 capsule by mouth daily at bedtime. (Patient taking differently: Take 0.4 mg by mouth one time a week.) acetaminophen (TYLENOL) 325 mg tablet Take 2 tablets by mouth every 6 hours as needed for pain. aspirin 81 mg chewable tablet 1 tablet by ORAL/FEEDING TUBE route once daily. Lancets (ACCU-CHEK SOFTCLIX LANCETS) lancets Use as instructed twice daily atorvastatin (LIPITOR) 40 mg tablet Take 1 tablet by mouth daily at bedtime. (Patient not taking: Reported on 12/31/2023) REVIEW OF SYSTEMS: ROS HEART FAILURE PATIENT ENTERED DATA: No data to display No data to display No data to display PHYSICAL EXAMINATION: BP 136/85 (BP Site: Left Arm) Pulse (!) 56 Ht 163.8 cm (5' 4.5) Wt 95.7 kg (210 lb 14.4 oz) SpO2 98% BMI 35.64 kg/m? General: Well appearing, in no acute distress. Skin: No clubbing, no cyanosis. Eyes: Extra ocular movements intact Oropharynx: Teeth in good repair. Neck: No jugular venous distention, no carotid bruits, carotids have a normal upstroke, no palpable thyromegaly. Lungs: Clear to auscultation bilaterally, no wheezing or rhonchi. Heart: Regular rhythm, PMI not displaced, S1, S2 normal, no S3, no S4, no heaves, no rub and no murmur. Abdomen: Soft, nontender, bowel sounds normal, no palpable organomegaly, no bruits. Extremities: No peripheral edema . Grade 2/4 distal pulses bilaterally. Neuro: Oriented to person, place and time, alert, cooperative, gait coordinated. CARDIOVASCULAR MEDICINE TESTING: There were no tests performed for review. Last ECHO Result Conclusion ECHO Collected: 12/31/2023 10:00 AM (Final result) Impression: CONCLUSIONS: - Exam indication: s/p CABG (2022) - The left ventricle is normal in size. There is mild left ventricular hypertrophy. Left ventricular systolic function is normal. EF = 57 ? 5% (2D biplane) Grade I left ventricular diastolic dysfunction. - The right ventricle is normal in size. Right ventricular systolic function is normal. - Exam was compared with the prior CC echocardiographic exam performed on 04/20/2023. There is more AR and mild on today (more content not included)... [facility] 06-26-2024 History of Presen t illness Narrative Images from the original note were not included. Heart and Vascular [place] [facility] SECTION OF HEART FAILURE and CARDIAC TRANSPLANT MEDICINE OUTPATIENT VISIT DATE June 26, 2024 OUTPATIENT VISIT TYPE Established Patient PRIMARY CARE PHYSICIAN: Santino Fermin [id number] [facility] [place] [address] CHIEF COMPLAINT: Exertional leg pain NURSING INTAKE (Patient s concerns and/or recent hospitalizations/ER visits): HF Nursing Assessment: Interim Hospitalizations and/or ER visits:no Chest Pain: no Skipping or irregular heartbeats: yes Shortness of breath at rest: no Shortness of breath with activity: no Cough: no Waking up in the middle of the night gasping for air: no Lightheadedness or dizziness: yes, when get up in the morning Feeling like you are going to pass out: no Actually passing out: no Poor energy level: yes, sometimes Unintentional weight gain: no Unintentional weight loss: no Swelling in your legs,feet, abdomen: no Filling up quickly when you eat: no HISTORY OF PRESENT ILLNESS: 74 year old male with history of HTN, obesity Class II, diabetes mellitus type 2, CAD sp 04/09/2023: CABG x3 (RODARTE-LAD / SVG-RAMUS / SVG-RC); 04/09/2023: Large Right pneumothorax, s/p pigtail in CVICU; 04/10/2023: Recurrence of right PTX; 2nd pigtail in right anterior chest in CVICU. Shingles. His walking is limited because of leg pain. Sleeping for 4 hours and then he is awake. No issues with leg swelling PAST MEDICAL HISTORY Diagnosis Date Chronic kidney disease, stage III (moderate) (HCC) Essential hypertension Pneumothorax on right PAST SURGICAL HISTORY Procedure Laterality Date CABG (3) VEIN GRAFTS & ARTERIAL GRAFT(S) 04/09/2023 (RODARTE-LAD / SVG-RAMUS / SVG-RC) SOCIAL HISTORY Social History Tobacco Use Smoking status: Never Smokeless tobacco: Never Vaping Use Vaping status: Never Used Substance Use Topics Alcohol use: Never Drug use: Never FAMILY HISTORY Problem Relation Age of Onset other (Myocardial infarction) Mother Diabetes Mother other (CABG) Brother Heart Failure Brother Heart disease Brother PPM amnd fabian replacement ALLERGIES: ALLERGIES No Known Allergies CURRENT MEDICATIONS: carvedilol (COREG) 12.5 mg tablet Take 1 tablet in the morning and 1/2 tablet at night. (Patient taking differently: Take 1 tablet in the morning and 1 tablet at night.) glimepiride (AMARYL) 1 mg tablet Take 1 tablet by mouth daily with breakfast. amLODIPine (NORVASC) 5 mg tablet Take 2 tablets by mouth once daily. blood sugar diagnostic (ACCU-CHEK GUIDE TEST STRIPS) test strip Use as instructed twice daily tamsulosin (FLOMAX) 0.4 mg Take 1 capsule by mouth daily at bedtime. (Patient taking differently: Take 0.4 mg by mouth one time a week.) acetaminophen (TYLENOL) 325 mg tablet Take 2 tablets by mouth every 6 hours as needed for pain. aspirin 81 mg chewable tablet 1 tablet by ORAL/FEEDING TUBE route once daily. Lancets (ACCU-CHEK SOFTCLIX LANCETS) lancets Use as instructed twice daily atorvastatin (LIPITOR) 40 mg tablet Take 1 tablet by mouth daily at bedtime. (Patient not taking: Reported on 12/31/2023) REVIEW OF SYSTEMS: ROS HEART FAILURE PATIENT ENTERED DATA: No data to display No data to display No data to display PHYSICAL EXAMINATION: BP 136/85 (BP Site: Left Arm) Pulse (!) 56 Ht 163.8 cm (5' 4.5) Wt 95.7 kg (210 lb 14.4 oz) SpO2 98% BMI 35.64 kg/m General: Well appearing, in no acute distress. Skin: No clubbing, no cyanosis. Eyes: Extra ocular movements intact Oropharynx: Teeth in good repair. Neck: No jugular venous distention, no carotid bruits, carotids have a normal upstroke, no palpable thyromegaly. Lungs: Clear to auscultation bilaterally, no wheezing or rhonchi. Heart: Regular rhythm, PMI not displaced, S1, S2 normal, no S3, no S4, no heaves, no rub and no murmur. Abdomen: Soft, nontender, bowel sounds normal, no palpable organomegaly, no bruits. Extremities: No peripheral edema . Grade 2/4 distal pulses bilaterally. Neuro: Oriented to person, place and time, alert, cooperative, gait coordinated. CARDIOVASCULAR MEDICINE TESTING: There were no tests performed for review. Last ECHO Result Conclusion ECHO Collected: 12/31/2023 10:00 AM (Final result) Impression: CONCLUSIONS: - Exam indication: s/p CABG (2022) - The left ventricle is normal in size. There is mild left ventricular hypertrophy. Left ventricular systolic function is normal. EF = 57 5% (2D biplane) Grade I left ventricular diastolic dysfunction. - The right ventricle is normal in size. Right ventricular systolic function is normal. - Exam was compared with the prior echocardiographic exam performed on 04/20/2023. There is more AR and mild on today's exam. * * * Final * * * Last EKG Result Conclusion ECG COMPLETE Collected: 05/01/2023 10:21 AM (Final result) Impression: NORMAL SINUS RHYTHM LEFT AXIS DEVIATION CANNOT EXCLUDE INFERIOR MYOCARDIAL INFARCTION , AGE UNDETERMINED ABNORMAL ECG Confirmed by JULIANE HOBBS, [facility] ([id number]) on 05/06/2023 3:53:47 PM IMPRESSION: NYHA Functional Class: I Stage: A heart failure CAD sp CABG 04/2023- Aspirin but not statin- intolerant. Saphectomy wound healed Hypertension controlled DM type 2 CKD III Shingles resolved PLAN AND RECOMMENDATIONS: 1- Re-start atorvastatin 40mg 1 tablet per day. Please let me know if you are intolerant. 2- Measure your blood pressure 1 time per day in the morning Saturday, Saturday and Saturday. 3- Every month send me your blood pressure log. If BP > 140mmHg let me know. ( Goal <130/80) 4-Exertional leg pain- -Vascular study with exercise to be scheduled. 5- Follow up in 6 months or sooner if needed. I personally interviewed, confirmed and edited the above information as obtained by others Marilyn Dove MD [facility] Section Of Heart Failure and Cardiac Transplant Medicine Heart and Vascular [place] [facility] Desk [address] [place] [address] documented in this encounter [facility] 01-14-2024 Evaluation note Diagnosis Herpes zoster with other complication- Primary Stage 3a chronic kidney disease (HCC) Post herpetic neuralgia Herpes zoster with other nervous system complications Scaly patch rash Rash and other nonspecific skin eruption Controlled type 2 diabetes mellitus without complication, without long-term current use of insulin (HCC) documented in this encounter [facility]06-10-2024 Instructions* Patient Instructions* Gato Zaldivar MD - 01/13/2024 11:14 AM EDT Apply Aquacel or Vaseline on patches Avoid steroids Valtrex extend due to very slow improvement --> shingles vaccine and avoid systemic steroids Allergic dermatitis--> referral dermatology--> I will send you a message with the result of the test Post herpetic neuralgia build up gabapentin for neuropathy starting 200mg tonight (will make you sleepy, drowsy and dizziness,) no driving or equipment that can become a risk. The dose goal 300mg every 12 hours , follow your primary doctor and hope tape you off depending of pain control Tylenol OK no more than 3 grams in 24 hours and no more than 1 gram every time you take [facility] History of Present illness Narrative* Gato Zaldivar MD - 01/13/2024 10:30 AM EDT INFECTIOUS DISEASE - OUTPATIENT INITIAL CONSULT Subjective Source of information: Patient Dino Blandon Obtained history from other person Current [facility] records reviewed and summarized below Prior [facility] records reviewed and summarized below Provider requesting the consultation: Dr Marilyn Dove Cardiology Chief Complaint / Reason for Consult: Shingles left thoracoabdominal HPI: Dino Blandon is a 73 year old man from [place] [address] , works in his own electric company, 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 October 2023 developed a rash on right leg donor site pruritic desquamative and couple patches on upper back, very pruritic. PCP order topical steroids with some improvement 12/30/23 ED for left flank pain radiated to groin area 05/14, no dysuria or hematuria, no nausea, vomiting or diarrhea, and rash worsening , CT abdomen clear lung bases, no hydronephrosis or stones, ,moderated prostate enlargement and chronic bladder outflow, diffuse degenerative spine. No leukocytosis WBC 8.2, UA LE 500, nitrates negative, RBC 0, WBC 10-25. He was discharge with unspecific abdominal pain and rash with prescription dexamethasone 6mg daily for 6 days and percocet for 3 days 12/31/23 Cardiology follow up was diagnosed shingles left side rash blistering extending anterior abdomen on T11 dermatoma and started valtrex 1g BID base on creatinine clearance ~40. Heart failure stage A, CA, ASA no statin due intolerance, saphenectomy wound no healed, uncontrol hypertension, Diabetes mellitus, CKD3 and shingles. He was refer to ID clinic. Creatinine 1.73 01/13/24 repots painful rash improved control with tylenol but no relief, rash on left side improving started scabbing completed Valtrex 01/06/24, rash on leg and upper back are no painful but very pruritic. No fever or chills. He is worried to be around his daughter and daughter in law that ae and close to delivery Additional relevant medical history obesity BMI 36, diabetes mellitus, CKD3b, hypertension s/p 04/09/23 CABG 3 complicated with Methicillin resistants Staphylococcus epidermidis bacteremia, infected donor venous graft MSA, enterobacter cloacae , recurrent UTI E coli ESBL he was treated with ciproflox acin and vancomycin, and SOLIS Allergies: ALLERGIES No Known Allergies Current Medications: Current Outpatient Medications Medication Sig carvedilol (COREG) 12.5 mg tablet Take 1 tablet in the morning and 1/2 tablet at night. atorvastatin (LIPITOR) 40 mg tablet Take 1 tablet by mouth daily at bedtime. (Patient not taking: Reported on 12/31/2023) glimepiride (AMARYL) 1 mg tablet Take 1 tablet by mouth daily with breakfast. amLODIPine (NORVASC) 5 mg tablet Take 2 tablets by mouth once daily. blood sugar diagnostic (ACCU-CHEK GUIDE TEST STRIPS) test strip Use as instructed twice daily tamsulosin (FLOMAX) 0.4 mg Take 1 capsule by mouth daily at bedtime. (Patient taking differently: Take 0.4 mg by mouth every other day.) acetaminophen (TYLENOL) 325 mg tablet Take 2 tablets by mouth every 6 hours as needed for pain. aspirin 81 mg chewable tablet 1 tablet by ORAL/FEEDING TUBE route once daily. Lancets (ACCU-CHEK SOFTCLIX LANCETS) lancets Use as instructed twice daily No current facility-administered medications for this visit. Past Medical History: PAST MEDICAL HISTORY Diagnosis Date Chronic kidney disease, stage III (moderate) (HCC) Essential hypertension Pneumothorax on right Past Surgical History: PAST SURGICAL HISTORY Procedure Laterality Date CABG (3) VEIN GRAFTS & ARTERIAL GRAFT(S) 04/09/2023 (RODARTE-LAD / SVG-RAMUS / SVG-RC) Social History / Exposure History: Social History Tobacco Use Smoking status: Never Smokeless tobacco: Never Vaping Use Vaping Use: Never used Substance Use Topics Alcohol use: Never Drug use: Never Exposure History No recent travel, no sick contacts Family History: FAMILY HISTORY Problem Relation Age of Onset other (Myocardial infarction) Mother Diabetes Mother other (CABG) Brother Heart Failure Brother Heart disease Brother PPM amnd fabian replacement Not pertinent to this patient's acute infectious process No heritable diseases that predispose to infection in family. Review of Systems: REVIEW OF SYSTEMS (14 systems): System POSITIVE Negative Constitutional [] fever [] chills [] night sweats [] weight loss [x] fever [x] chills [x] night sweats [x] weight loss Eyes [] vision changes [x] vision changes ENT/mouth [] runny nose [] sore throat [] new mouth lesions [x] runny nose [x] sore throat [x] new mouth lesions Cardiovascular [] chest pain [x] chest pain Respiratory [] cough [] SOB [x] cough [x] SOB Gastrointestinal [] nausea [] vomiting [] Diarrhea [] Constipation [] abdominal pain [x] nausea [x] vomiting [x] Diarrhea [x] Constipation [x] abdominal pain Genitourinary [] dysuria [] frequency [] urgency [] hematuria [x] dysuria [x] frequency [x] urgency [x] hematuria Integumentary [x] new rashes [] new rashes Dentla extraction except 2 lower bridge and upper full extraction rest of complete review of systems is negative Objective Vital signs: There were no vitals taken for this visit. Physical Examination: Constitutional: comfortable, no distress , obese Skin: left T11-T12 dermatoma rash with erythematous plaque , no blister 2 lesion scabbed. Upper back has erythematosus, scaly plaques, pruritic with signs of scratch Eyes: clear sclera, no icterus ENMT: mucous membranes moist, no thrush Head/Neck: neck supple Respiratory/Thorax: breathing comfortably, clear to auscultation bilaterally Cardiovascular: regular rhythm, no tachycardia, no murmur Gastrointestinal: normal bowel sounds, non-distended, non-tender Musculoskeletal: no knee joint swelling, normal range of motion Extremities: trace edema, wearing compression, right leg at scares form venosus graft donor site scaly plaque erythematous with desquamation Neurological: alert and oriented X 3, answers appropriately , follow commands Psychological: appropriate affect Laboratory Studies (I personally reviewed the clinical labs and microbiology data): WBC (k/uL) Date Value 01/01/2024 6.68 Hemoglobin (g/dL) Date Value 01/01/2024 14.1 Platelet Count (k/uL) Date Value 01/01/2024 170 Creatinine (mg/dL) Date Value 01/01/2024 1.43 Estimated Creatinine Clearance: 49.9 mL/min (A) (based on SCr of 1.43 mg/dL (H)). Alkaline Phosphatase (U/L) Date Value 01/01/2024 72 AST (U/L) Date Value 01/01/2024 22 ALT (U/L) Date Value 01/01/2024 20 Bilirubin, Total (mg/dL) Date Value 01/01/2024 0.2 Microbiology: Urine cultures: 10/09/23 no growth Imaging (I personally visualized the films below): Above repot CT abdomen TTE 12/31/23 LVEF 57%, RV function normal IMPRESSIONS: 1. Shingles T11 and T12 eft dermatoma evolving - Completed 7 days valtrex with improvement no resolved - some component rash worse in the seating of recent steroids and diabetes uncontrol 2. Post herpetic neurologia / diabetes mellitus uncontrol - some help with tylenol - glucose 132 (01/01/24) 3. Pruritic rash plaques upper back and right leg on scar form donor site - topical steroids help, systemic steroids did not make improvement 4. Hear failure preserve ejection fraction CAD s/p CABG, leg edema on compressions stocking - manage by Cardiology Dr Dove 5. CKD3b affecting antimicrobials - improving creatinine 1.43 (01/01/24) PLAN: 1. Valtrex 1g every for 7 days 2. Gabapentin stepping up dose slowly plan 300mg PO BID--> transition to PCP for management 3. Referral dermatology, keep skin moisture and continue compressions stocking for rash (this is not shingles) 4. Follow PCP 5. Screen for Stap aureus nares 6. Swab rash fro VZV/ HSV PCR 7. Cover rash and id blisters avoid contact with babies/ woman as discussed 8. Shingles vaccine to [facility] pharmacy I spent a total of 50 minutes on the date of the service which included preparing to see the patient, [id number] patient care, completing clinical documentation, performing a medically appropriate examination, counseling and educating the patient/family/caregiver, ordering medications, tests, or p rocedures, communicating with other HCPs (not separately reported), communicating results to the patient/family/caregiver, and care coordination (not separately reported). SIGNATURE: Gato Zaldivar MD PATIENT NAME: Dino Blandon SERVICE DATE: January 13, 2024 SERVICE TIME: 10:34 AM Thank you for allowing us to contribute to this patient's care. Please call with questions. Case findings/test results and suggestions discussed with the requesting physician via the shared electronic medical record [employer] dictation software was used to dictate part of this note. [facility] NoteHNO ID: [id number] Author: GATO ZALDIVAR MD Service: ? Author Type: Physician Type: Progress Notes Filed: 01/14/2024 08:20 Note Text: INFECTIOUS DISEASE - OUTPATIENT INITIAL CONSULT Subjective Source of information: Patient Dino Blandon Obtained history from other person Current [facility] records reviewed and summarized below Prior [facility] records reviewed and summarized below Provider requesting the consultation: Dr Marilyn Dove Cardiology Chief Complaint / Reason for Consult: Shingles left thoracoabdominal HPI: Dino Blandon is a 73 [place] [address] , works in his own electric company, 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 October 2023 developed a rash on right leg donor site pruritic desquamative and couple patches on upper back, very pruritic. PCP order topical steroids with some improvement 12/30/23 ED for left flank pain radiated to groin area 10/10, no dysuria or hematuria, no nausea, vomiting or diarrhea, and rash worsening , CT abdomen clear lung bases, no hydronephrosis or stones, , moderated prostate enlargement and chronic bladder outflow, diffuse degenerative spine. No leukocytosis WBC 8.2, UA LE 500, nitrates negative, RBC 0, WBC 10-25. He was discharge with unspecific abdominal pain and rash with prescription dexamethasone 6mg daily for 6 days and percocet for 3 days 12/31/23 Cardiology follow up was diagnosed shingles left side rash blistering extending anterior abdomen on T11 dermatoma and started valtrex 1g BID base on creatinine clearance ~40. Heart failure stage A, CA, ASA no statin due intolerance, saphenectomy wound no healed, uncontrol hypertension, Diabetes mellitus, CKD3 and shingles. He was refer to ID clinic. Creatinine 1.73 01/13/24 repots painful rash improved control with tylenol but no relief, rash on left side improving started scabbing completed Valtrex 01/06/24, rash on leg and upper back are no painful but very pruritic. No fever or chills. He is worried to be around his daughter and daughter in law that ae and close to delivery Additional relevant medical history obesity BMI 36, diabetes mellitus, CKD3b, hypertension s/p 04/09/23 CABG 3 complicated with Methicillin resistants Staphylococcus epidermidis bacteremia, infected donor venous graft MSA, enterobacter cloacae , recurrent UTI E coli ESBL he was treated with ciprofloxacin and vancomycin, and SOLIS Allergies: ALLERGIES No Known Allergies Current Medications: Current Outpatient Medications Medication Sig carvedilol (COREG) 12.5 mg tablet Take 1 tablet in the morning and 1/2 tablet at night. atorvastatin (LIPITOR) 40 mg tablet Take 1 tablet by mouth daily at bedtime. (Patient not taking: Reported on 12/31/2023) glimepiride (AMARYL) 1 mg tablet Take 1 tablet by mouth daily with breakfast. amLODIPine (NORVASC) 5 mg tablet Take 2 tablets by mouth once daily. blood sugar diagnostic (ACCU-CHEK GUIDE TEST STRIPS) test strip Use as instructed twice daily tamsulosin (FLOMAX) 0.4 mg Take 1 capsule by mouth daily at bedtime. (Patient taking differently: Take 0.4 mg by mouth every other day.) acetaminophen (TYLENOL) 325 mg tablet Take 2 tablets by mouth every 6 hours as needed for pain. aspirin 81 mg chewable tablet 1 tablet by ORAL/FEEDING TUBE route once daily. Lancets (ACCU-CHEK SOFTCLIX LANCETS) lancets Use as instructed twice daily No current facility-administered medications for this visit. Past Medical History: PAST MEDICAL HISTORY Diagnosis Date Chronic kidney disease, stage III (moderate) (HCC) Essential hypertension Pneumothorax on right Past Surgical History: PAST SURGICAL HISTORY Procedure Laterality Date CABG (3) VEIN GRAFTS AND ARTERIAL GRAFT(S) 04/09/2023 (RODARTE-LAD / SVG-RAMUS / SVG-RC) Social History / Exposure History: Social History Tobacco Use Smoking status: Never Smokeless tobacco: Never Vaping Use Vaping Use: Never used Substance Use Topics Alcohol use: Never Drug use: Never Exposure History No recent travel, no sick contacts Family History: FAMILY HISTORY Problem Relation Age of Onset other (Myocardial infarction) Mother Diabetes Mother other (CABG) Brother Heart Failure Brother Heart disease Brother PPM amnd fabian replacement Not pertinent to this patient's acute infectious process No heritable diseases that predispose to infection in family. Review of Systems: REVIEW OF SYSTEMS (14 systems): System POSITIVE Negative Constitutional [] fever [] chills [] night sweats [] weight loss [x] fever [x] chills [x] night sweats [x] weight loss Eyes [] vision changes [x] vision changes ENT/mouth [] runny nose [] sore throat [] new mouth lesions [x] runny nose [x] sore throat [x] new mouth lesions Cardiovascular [] chest pain [x] chest pain Respirator (more content not included)...[facility]05-30-2024 Telephone encounter Note* Telephone Encounter - Tasha Bruno RN - 01/02/2024 9:07 AM EDT Called the patient but spoke with the who received the information of lab results being good. While on the phone, the stated they are having difficulty getting an appointment with the ID team and can not be seen till Dec. Tasha Bruno RN January 02, 2024 9:10 AM [facility]05-[facility] Miscellaneous Notes* Telephone Encounter - Tasha Bruno RN - 01/02/2024 9:07 AM EDT Called the patient but spoke with the who received the information of lab results being good. While on the phone, the stated they are having difficulty getting an appointment with the ID team and can not be seen till Dec. Tasha Bruno RN January 02, 2024 9:10 AM * Telephone Encounter - Tasha Bruno RN - 01/02/2024 8:58 AM EDT ----- Message from Marilyn Dove MD sent at 01/02/2024 8:28 AM EDT ----- Regarding: RE: Follow up Labs looks good. Continue plan as discussed ----- Message ----- From: Tasha Bruno RN Sent: 01/01/2024 4:03 PM EDT To: Marilyn Dove MD Subject: RE: Follow up His LABS are back please advisetasha Weinstein ----- Message ----- From: Marilyn Dove MD Sent: 01/01/2024 11:23 AM EDT To: Paulette J3-4 Opd Nurses Subject: Follow up Labs reviewed. Creatinine 1.73- No need to adjust Valtrex dose. Continue plan as discussed. GIven his history of cabg and intolerance to statin I would suggest bempedoic acid for cholesterol management once the pain has improved. Marilyn Dove MD * Telephone Encounter - Tasha Bruno RN - 01/01/2024 1:01 PM EDT ----- Message from Marilyn Dove MD sent at 01/01/2024 11:21 AM EDT ----- Regarding: Follow up Labs reviewed. Creatinine 1.73- No need to adjust Valtrex dose. Continue plan as discussed. GIven his history of cabg and intolerance to statin I would suggest bempedoic acid for cholesterol management once the pain has improved. Marilyn Dove MD [facility] Telephone encounter Note * Telephone Encounter - Tasha rBuno RN - 01/02/2024 8:58 AM EDT ----- Message from Marilyn Dove MD sent at 01/02/2024 8:28 AM EDT ----- Regarding: RE: Follow up Labs looks good. Continue plan as discussed ----- Message ----- From: Tasha Bruno RN Sent: 01/01/2024 4:03 PM EDT To: Marilyn Dove MD Subject: RE: Follow up His LABS are back please advisetasha Weinstein ----- Message ----- From: Marilyn Dove MD Sent: 01/01/2024 11:23 AM EDT To: Paulette J3-[facility] Opd Nurses Subject: Follow up Labs reviewed. Creatinine 1.73- No need to adjust Valtrex dose. Continue plan as discussed. GIven his history of cabg and intolerance to statin I would suggest bempedoic acid for cholesterol management once the pain has improved. Marilyn Dove MD [facility] Telephone encounter Note* Telephone Encounter - Tasha Bruno RN - 01/01/2024 1:01 PM EDT ----- Message from Marilyn Dove MD sent at 01/01/2024 11:21 AM EDT ----- Regarding: Follow up Labs reviewed. Creatinine 1.73- No need to adjust Valtrex dose. Continue plan as discussed. GIven his history of cabg and intolerance to statin I would suggest bempedoic acid for cholesterol management once the pain has improved. Marilyn Dove MD [facility]05-28-2024 Instructions* Patient Instructions* Marilyn Dove MD - 12/31/2023 1:20 PM EDT Echocardiogram shows normal heart function and mild aortic stenosis and mild aortic insufficiency . PLAN 1- Blood work today. 2- Valtrex 1 gram 2 times a day for 7 days. 3- Follow up with Dr. Gato Zaldivar from infectious disease for shingles evaluation 4- Carvedilol 12.5mg 1 tablet in the morning and 1/2 a tablet at night.. 5- Sleep test: please discuss with primary care doctor. 6-Increase physical activity as tolerated.- Month 1 Start 10 minutes walking 3 times per week Month 2 Then increase to 5 times per week Month 3 Then increase to 15 minutes 5 times per week MOnth 4 Increase to 20 minutes 5 times per week. 7- Follow up in 6 months or sooner if needed. Marilyn Dove MD [phone] documented in this encounterWilson Memorial Hospital05-28-[facility]24 History of Present illness Narrative* Marilyn Dove MD - 12/31/2023 11:54 AM EDT Images from the original note were not included. Heart and Vascular [facility] SECTION OF HEART FAILURE and CARDIAC TRANSPLANT MEDICINE OUTPATIENT VISIT DATE December 31, 2023 OUTPATIENT VISIT TYPE Established Patient PRIMARY CARE PHYSICIAN: Santino Fermin [address] [place] [id number] CHIEF COMPLAINT: Coronary artery disease NURSING INTAKE (Patient s concerns and/or recent hospitalizations/ER visits): HF Nursing Assessment: Interim Hospitalizations and/or ER visits: no Chest Pain: no Skipping or irregular heartbeats: yes Shortness of breath at rest: no Shortness of breath with activity: no Cough: no Waking up in the middle of the night gasping for air: no Lightheadedness or dizziness: no Feeling like you are going to pass out: no Actually passing out: no Poor energy level: yes Unintentional weight gain: no Unintentional weight loss: no Swelling in your legs,feet, abdomen: no HISTORY OF PRESENT ILLNESS: 73 year old male with history of HTN, obesity Class II, diabetes mellitus type 2, CAD sp 04/09/2023: CABG x3 (RODARTE-LAD / SVG-RAMUS / SVG-RC); 04/09/2023: Large Right pneumothorax, s/p pigtail in CVICU; 04/10/2023: Recurrence of right PTX; 2nd pigtail in right anterior chest in CVICU. Overall doing well. 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 Low energy- starts when he wakes up. Not sleeping good. Stay awake for hours. Lower back chest pain, associated skin lesions, severe. Started yesterday and was evaluated at ED -kidney stone was ruled out. Per patient renal function 1.49 yesterday in ED. He feels that his legs are getting stronger and swelling has improved. PAST MEDICAL HISTORY Diagnosis Date Chronic kidney disease, stage III (moderate) (HCC) Essential hypertension Pneumothorax on right PAST SURGICAL HISTORY Procedure Laterality Date CABG (3) VEIN GRAFTS & ARTERIAL GRAFT(S) 04/09/2023 (RODARTE-LAD / SVG-RAMUS / SVG-RC) SOCIAL HISTORY Social History Tobacco Use Smoking status: Never Smokeless tobacco: Never Vaping Use Vaping Use: Never used Substance Use Topics Alcohol use: Never Drug use: Never FAMILY HISTORY Problem Relation Age of Onset other (Myocardial infarction) Mother Diabetes Mother other (CABG) Brother Heart Failure Brother Heart disease Brother PPM amnd fabian replacement ALLERGIES: ALLERGIES No Known Allergies CURRENT MEDICATIONS: carvedilol (COREG) 12.5 mg tablet Take 1 tablet by mouth two times a day with meals. (Patient taking differently: Take 12.5 mg by mouth once daily.) glimepiride (AMARYL) 1 mg tablet Take 1 tablet by mouth daily with breakfast. amLODIPine (NORVASC) 5 mg tablet Take 2 tablets by mouth once daily. blood sugar diagnostic (ACCU-CHEK GUIDE TEST STRIPS) test strip Use as instructed twice daily tamsulosin (FLOMAX) 0.4 mg Take 1 capsule by mouth daily at bedtime. (Patient taking differently: Take 0.4 mg by mouth every other day.) acetaminophen (TYLENOL) 325 mg tablet Take 2 tablets by mouth every 6 hours as needed for pain. aspirin 81 mg chewable tablet 1 tablet by ORAL/FEEDING TUBE route once daily. Lancets (ACCU-CHEK SOFTCLIX LANCETS) lancets Use as instructed twice daily atorvastatin (LIPITOR) 40 mg tablet Take 1 tablet by mouth daily at bedtime. (Patient not taking: Reported on 12/31/2023) REVIEW OF SYSTEMS: ROS HEART FAILURE PATIENT ENTERED DATA: No data to display No data to display No data to display PHYSICAL EXAMINATION: BP 138/76 (BP Site: Left Arm) Pulse (!) 53 Ht 163.8 cm (5' 4.5) Wt 95.6 kg (210 lb 12.8 oz) SpO2 97% BMI 35.62 kg/m General: Well appearing, in no acute distress. Skin: Erythematous lesions in a dermatomal distribution in the left back Eyes: Extra ocular movements intact Oropharynx: Teeth in good repair. Neck: No jugular venous distention, no carotid bruits, carotids have a normal upstroke, no palpablethyromegaly. Lungs: Clear to auscultation bilaterally, no wheezing or rhonchi. Heart: Regular rhythm, PMI not displaced, S1, S2 normal, no S3, no S4, no heaves, no rub and no murmur. Abdomen: Soft, nontender, bowel sounds normal, no palpable organomegaly, no bruits. Extremities:trace peripheral edema . Grade 2/4 distal pulses bilaterally. Neuro: Oriented to person, place and time, alert, cooperative, gait coordinated. CARDIOVASCULAR MEDICINE TESTING: I have personally reviewed the Laboratory Testing and Echocardiogram. Last ECHO Result Conclusion ECHO Collected: 12/31/2023 10:00 AM (Final result) Impression: CONCLUSIONS: - Exam indication: s/p CABG (2022) - The left ventricle is normal in size. There is mild left ventricular hypertrophy. Left ventricular systolic function is normal. EF = 57 5% (2D biplane) Grade I left ventricular diastolic dysfunction. - The right ventricle is normal in size. Right ventricular systolic function is normal. - Exam was compared with the prior CC echocardiographic exam performed on 04/20/2023. There is more AR and mild on today's exam. * * * Final * * * Last EKG Result Conclusion ECG COMPLETE Collected: 05/01/2023 10:21 AM (Final result) Impression: NORMAL SINUS RHYTHM LEFT AXIS DEVIATION CANNOT EXCLUDE INFERIOR MYOCARDIAL INFARCTION , AGE UNDETERMINED ABNORMAL ECG Confirmed by JULIANE HOBBS, VÍCTOR ([id number]) on 05/06/2023 3:53:[address] Result Conclusion CT CHEST WO IVCON Exam End: 04/11/2023 12:45 AM (Final result) Impression: IMPRESSION: Postoperative changes status post median sternotomy and coronary artery bypass graft. Trace bilateral pneumothoraces with bilateral chest tubes. New bilateral dependent consolidative opacities likely represent atelectasis. Superimposed infection/aspiration is possible. I agree that this report by the resident represents my interpretation of the study. Process Machine Operator: PSCB Transcribe Date/Time: Apr 11 2023 12:46A Dictated by : MAKSIM HOLLAND MD This examination was interpreted and the report reviewed and electronically signed by: ALEKSANDRA CASAREZ MD on Apr 11 2023 8:39AM EST IMPRESSION: NYHA Functional Class: I Stage: A heart failure CAD sp CABG 04/2023- Aspirin bu not statin- intolerant. Saphectomy wound Hypertension uncontrolled DM type 2 CKD III Shingles- acute Heart Failure specific medications (list current, note updates or changes, note prior intolerance): BB: Carvvedilol 12.5 bid ACEI/ARB/ARNI: NONE CKD AND SOLIS MRA: NONE SGLT2: NONE Diuretic: NONE Digoxin: NONE Vasodilators: NONE Anti-arrhythmics: NONE Ivabradine: NONE Other anti-HTN: Amlodpine 10 PLAN AND RECOMMENDATIONS: 1- Blood work today. 2- Valtrex 1 gram 2 times a day for 7 days. 3- Follow up with Dr. Gato Zaldivar from infectious disease for shingles evaluation 4- Carvedilol 12.5mg 1 tablet in the morning and 1/2 a tablet at night.. 5- Sleep test: please discuss with primary care doctor. 6-Increase physical activity as tolerated.- Month 1 Start 10 minutes walking 3 times per week Month 2 Then increase to 5 times per week Month 3 Then increase to 15 minutes 5 times per week MOnth 4 Increase to 20 minutes 5 times per week. 7- Follow up in 6 months or sooner if needed. I personally interviewed, confirmed and edited the above information as obtained by others Marilyn Dove MD [facility] Section Of Heart Failure and Cardiac Transplant Medicine Heart and Vascular [facility] Desk [id number] [place] [address] documented in this encounterWilson Memorial Hospital02-23-2024 NoteHNO ID: [id number] Author: ADELIA ARCOS RN Service: ? Author Type: Registered Nurse Type: Progress Notes Filed: 09/27/2023 11:48 Note Text: Cardiac Rehab exercise class Cardiac Rehabilitation [facility] Based Program Supervising Physician: Dr. Dove Diagnosis: Hx of cabg (primary encounter diagnosis) Phase: 2 Monitored: yes Session Number: 36 Patient negative for COVID exposure and symptoms. Today?s exercise session was comprised of a warm-up, aerobic conditioning phase, aerobic, cool down, and free weights and/or resistance machines. Patient tolerated prescribed exercise workload. Tele -SB-SR PVC Vitals WNL for patient. No chest discomfort. No medication changes. This is a hospital based cardiac rehab program. Patient working towards exercise goals by increasing exercise frequency and/or intensity and/or duration. Patient working towards educational goals by attending education classes or receiving and reviewing educational materials with staff. Patient has verbalized understanding of Nutritional Labels education topic and the relation to disease management. Patient?s [facility] Exercise sessions will be scanned into IVDesk once it is completed. These can be viewed by going under the ?Scanned Documents? tab and looking for documents labeled ?Cardiac Rehabilitation.? [facility] Exercise session contains exercise data such as, but not limited to modality, intensity, duration and frequency of exercise, along with vital signs pre, during and post exercise and EKG rhythm strips. [facility]cos [facility] History of Present illness Narrative* Adelia Arcos RN - 09/27/2023 11:07 AM EST Cardiac Rehab exercise class Cardiac Rehabilitation [facility] Based Program Supervising Physician: Dr. Dove Diagnosis: Hx of cabg (primary encounter diagnosis) Phase: 2 Monitored: yes Session Number: 36 Patient negative for COVID exposure and symptoms. Today s exercise session was comprised of a warm-up, aerobic conditioning phase, aerobic, cool down, and free weights and/or resistance machines. Patient tolerated prescribed exercise workload. Tele -SB-SR PVC Vitals WNL for patient. No chest discomfort. No medication changes. This is a hospital based cardiac rehab program. Patient working towards exercise goals by increasing exercise frequency and/or intensity and/or duration. Patient working towards educational goals by attending education classes or receiving and reviewing educational materials with staff. Patient has verbalized understanding of Nutritional Labels education topic and the relation to disease management. Patient s [facility] Exercise sessions will be scanned into IVDesk once it is completed. These can be viewed by going under the Scanned Documents tab and looking for documents labeled Cardiac Rehabilitation. [facility] Exercise session contains exercise data such as, but not limited to modality, intensity, duration and frequency of exercise, along with vital signs pre, during and post exercise and EKG rhythm strips. Adelia Arcos RN documented in this encounterWilson Memorial Hospital02-20-2024 NoteHNO ID: [id number] Author: MARGOT RICHARDSON RN Service: ? Author Type: Registered Nurse Type: Progress Notes Filed: 09/24/2023 11:48 Note Text: Cardiac Rehab Education [facility] Rehabilitation [facility] Based Program Supervising Physician: Derrell Diagnosis: CABG x3 Phase: 2 Monitor: No Session: 35 Patient working towards educational goal by attending educational sessions in Cardiac Rehabilitation. Patient has verbalized understanding of Nutrition label reading education topic and the relation to disease management. Discussion lead by hospice registered nurse. Education time 35 min Margot Richardson [facility] History of Present illness Narrative* Margot Richardson RN - 09/24/2023 11:47 AM EST Cardiac Rehab Education Cardiac Rehabilitation [facility] Based Program Supervising Physician: Derrell Diagnosis: CABG x3 Phase: 2 Monitor: No Session: 35 Patient working towards educational goal by attending educational sessions in Cardiac Rehabilitation. Patient has verbalized understanding of Nutrition label reading education topic and the relation to disease management. Discussion lead by hospice registered nurse. Education time 35 min Margot Richardson RN documented in this encounterWilson Memorial Hospital02-20-2024 NoteHNO ID: [id number] Author: MARGOT RICHARDSON RN Service: ? Author Type: Registered Nurse Type: Progress Notes Filed: 09/24/2023 11:39 Note Text: Cardiac Rehab exercise class Cardiac Rehabilitation [facility] Based Program Supervising Physician: Derrell Diagnosis: Hx of cabg (primary encounter diagnosis) Phase: 2 Monitored: yes Session Number: 35 Patient negative for COVID exposure and symptoms. Today?s exercise session was comprised of a warm-up, aerobic conditioning phase, aerobic, cool down, and free weights and/or resistance machines. Patient tolerated prescribed exercise workload. Tele SB-SR without ectopic beats. Vitals WNL for patient. No chest discomfort. No medication changes. This is a hospital based cardiac rehab program. Patient working towards exercise goals by increasing exercise frequency and/or intensity and/or duration. Patient working towards educational goals by attending education classes or receiving and reviewing educational materials with staff. Patient has verbalized understanding of Nutrition Labels education topic and the relation to disease management. Patient?s [facility] Exercise sessions will be scanned into IVDesk once it is completed. These can be viewed by going under the ?Scanned Documents? tab and looking for documents labeled ?Cardiac Rehabilitation.? [facility] Exercise session contains exercise data such as, but not limited to modality, intensity, duration and frequency of exercise, along with vital signs pre, during and post exercise and EKG rhythm strips. Margot Richardson [facility]02-[facility] History of Present illness Narrative* Margot Richardson RN - 09/24/2023 11:38 AM EST Cardiac Rehab exercise class Cardiac Rehabilitation [facility] Program Supervising Physician: Derrell Diagnosis: Hx of cabg (primary encounter diagnosis) Phase: 2 Monitored: yes Session Number: 35 Patient negative for COVID exposure and symptoms. Today s exercise session was comprised of a warm-up, aerobic conditioning phase, aerobic, cool down, and free weights and/or resistance machines. Patient tolerated prescribed exercise workload. Tele SB-SR without ectopic beats. Vitals WNL for patient. No chest discomfort. No medication changes. This is a hospital based cardiac rehab program. Patient working towards exercise goals by increasing exercise frequency and/or intensity and/or duration. Patient working towards educational goals by attending education classes or receiving and reviewing educational materials with staff. Patient has verbalized understanding of Nutrition Labels education topic and the relation to disease management. Patient s [facility] Exercise sessions will be scanned into IVDesk once it is completed. These can be viewed by going under the Scanned Documents tab and looking for documents labeled Cardiac Rehabilitation. [facility] Exercise session contains exercise data such as, but not limited to modality, intensity, duration and frequency of exercise, along with vital signs pre, during and post exercise and EKG rhythm strips. Margot Richardson RN documented in this encounterWilson Memorial Hospital02-09-2024 NoteHNO ID: [id number] Author: JOSEFA MANNING Oracle Database Administrator Service: ? Author Type: Oracle Database Administrator Type: Progress Notes Filed: 09/13/2023 11:37 Note Text: Cardiac Rehab exercise class Cardiac Rehabilitation [facility] Based Program Supervising Physician: Derrell Diagnosis: Hx of cabg (primary encounter diagnosis) Phase: 2 Monitored: yes Session Number: 33 Patient negative for COVID exposure and symptoms. Today?s exercise session was comprised of a warm-up, aerobic conditioning phase, aerobic, cool down, and free weights and/or resistance machines. Patient tolerated prescribed exercise workload. Tele SB-SR-ST without ectopic beats. Vitals WNL for patient. No chest discomfort. No medication changes. This is a hospital based cardiac rehab program. Patient working towards exercise goals by increasing exercise frequency and/or intensity and/or duration. Patient working towards educational goals by attending education classes or receiving and reviewing educational materials with staff. Patient has verbalized understanding of Cardiac AANDP education topic and the relation to disease management. Patient?s [facility] Exercise sessions will be scanned into IVDesk once it is completed. These can be viewed by going under the ?Scanned Documents? tab and looking for documents labeled ?Cardiac Rehabilitation.? [facility] Exercise session contains exercise data such as, but not limited to modality, intensity, duration and frequency of exercise, along with vital signs pre, during and post exercise and EKG rhythm strips. Xena Maldonado [facility]ologist[facility]02-[facility] History of Present illness Narrative* Josefa Manning Exercise Physiologist - 09/13/2023 11:05 AM EST Cardiac Rehab exercise class Cardiac Rehabilitation [facility] Supervising Physician: Derrell Diagnosis: Hx of cabg (primary encounter diagnosis) Phase: 2 Monitored: yes Session Number: 33 Patient negative for COVID exposure and symptoms. Today s exercise session was comprised of a warm-up, aerobic conditioning phase, aerobic, cool down, and free weights and/or resistance machines. Patient tolerated prescribed exercise workload. Tele SB-SR-ST without ectopic beats. Vitals WNL forpatient. No chest discomfort. No medication changes. This is a hospital based cardiac rehab program. Patient working towards exercise goals by increasing exercise frequency and/or intensity and/or duration. Patient working towards educational goals by attending education classes or receiving and reviewing educational materials with staff. Patient has verbalized understanding of Cardiac A&P education topic and the relation to disease management. [facility] sessions will be scanned into IVDesk once it is completed. These can be viewed by going under the Scanned Documents tab and looking for documents labeled Cardiac Rehabilitation. [facility] Exercise session contains exercise data such as, but not limited to modality, intensity, duration and frequency of exercise, along with vital signs pre, during and post exercise and EKG rhythm strips. Josefa Manning Oracle Database Administrator documented in this encounterWilson Memorial Hospital02-08-2024 NoteHNO ID: [id number] Author: ALANA MENON, REDD Service: ? Author Type: Registered Nurse Type: Progress Notes Filed: 09/12/2023 11:40 Note Text: Cardiac Rehab exercise class Cardiac Rehabilitation [facility] Supervising Physician: Marilyn Dove Diagnosis: Hx of cabg (primary encounter diagnosis) Phase: 2 Monitored: yes Session Number: 32 Patient negative for COVID exposure and symptoms. Today?s exercise session was comprised of a warm-up, aerobic conditioning phase, aerobic, cool down, and free weights and/or resistance machines. Patient tolerated prescribed exercise workload. Tele HA-VY-wyifmql ectopic beats. Vitals WNL for patient. No chest discomfort. No medication changes. This is a hospital based cardiac rehab program. Patient working towards exercise goals by increasing exercise frequency and/or intensity and/or duration. Patient working towards educational goals by attending education classes or receiving and reviewing educational materials with staff. Patient has verbalized understanding of A/P Heart education topic and the relation to disease management. Patient?s [facility] Exercise sessions will be scanned into IVDesk once it is completed. These can be viewed by going under the ?Scanned Documents? tab and looking for documents labeled ?Cardiac Rehabilitation.? [facility] Exercise session contains exercise data such as, but not limited to modality, intensity, duration and frequency of exercise, along with vital signs pre, during and post exercise and EKG rhythm strips. Alana Menon [facility]NP[facility]02-08-2024 History of Present illness Narrative* Alana Menon RN - 09/12/2023 11:18 AM EST Cardiac Rehab exercise class Cardiac Rehabilitation [facility] Based Program Supervising Physician: Marilyn Dove Diagnosis: Hx of cabg (primary encounter diagnosis) Phase: 2 Monitored: yes Session Number: 32 Patient negative for COVID exposure and symptoms. Today s exercise session was comprised of a warm-up, aerobic conditioning phase, aerobic, cool down, and free weights and/or resistance machines. Patient tolerated prescribed exercise workload. Tele JZ-WX-hajdety ectopic beats. Vitals WNL for patient. No chest discomfort. No medication changes. This is a hospital based cardiac rehab program. Patient working towards exercise goals by increasing exercise frequency and/or intensity and/or duration. Patient working towards educational goals by attending education classes or receiving and reviewing educational materials with staff. Patient has verbalized understanding of A/P Heart educationtopic and the relation to disease management. Patient s [facility] Exercise sessions will be scanned into IVDesk once it is completed. These can be viewed by going under the Scanned Documents tab and looking for documents labeled Cardiac Rehabilitation. [facility] Exercise session contains exercise data such as, but not limited to modality, intensity, duration and frequency of exercise, along with vital signs pre, during and post exercise and EKG rhythm strips. Alana Menon RN documented in this encounterWilson Memorial Hospital02-06-2024 NoteHNO ID: [id number] Author: MARGOT RICHARDSON RN Service: ? Author Type: Registered Nurse Type: Progress Notes Filed: 09/10/2023 11:38 Note Text: Cardiac Rehab exercise class Cardiac Rehabilitation [facility] Based Program Supervising Physician: Derrell Diagnosis: Hx of cabg (primary encounter diagnosis) Phase: 2 Monitored: yes Session Number: 31 Patient negative for COVID exposure and symptoms. Today?s exercise session was comprised of a warm-up, aerobic conditioning phase, aerobic, cool down, and free weights and/or resistance machines. Patient tolerated prescribed exercise workload. Tele SB, PACs. Asymptomatic with ectopic beats. Vitals WNL for patient. No chest discomfort. No medication changes. This is a hospital based cardiac rehab program. Patient working towards exercise goals by increasing exercise frequency and/or intensity and/or duration. Patient working towards educational goals by attending education classes or receiving and reviewing educational materials with staff. Patient has verbalized understanding of Cardiac AANDP education topic and the relation to disease management. Patient?s [facility] Exercise sessions will be scanned into IVDesk once it is completed. These can be viewed by going under the ?Scanned Documents? tab and looking for documents labeled ?Cardiac Rehabilitation.? [facility] Exercise session contains exercise data such as, but not limited to modality, intensity, duration and frequency of exercise, along with vital signs pre, during and post exercise and EKG rhythm strips. [facility] History of Present illness Narrative* Margot Richardson RN - 09/10/2023 11:10 AM EST Cardiac Rehab exercise class Card[facility] Rehabilitation [facility] Supervising Physician: Derrell Diagnosis: Hx of cabg (primary encounter diagnosis) Phase: 2 Monitored: yes Session Number: 31 Patient negative for COVID exposure and symptoms. Today s exercise session was comprised of a warm-up, aerobic conditioning phase, aerobic, cool down, and free weights and/or resistance machines. Patient tolerated prescribed exercise workload. Tele SB, PACs. Asymptomatic with ectopic beats. Vitals WNL for patient. No chest discomfort. No medication changes. This is a hospital based cardiac rehab program. Patient working towards exercise goals by increasing exercise frequency and/or intensity and/or duration. Patient working towards educational goals by attending education classes or receiving and reviewing educational materials with staff. Patient has verbalized understanding of Cardiac A&P education topic and the relation to disease management. Patient s [facility] Exercise sessions will be scanned into IVDesk once it is completed. These can be viewed by going under the Scanned Documents tab and looking for documents labeled Cardiac Rehabilitation. [facility] Exercise session contains exercise data such as, but not limited to modality, intensity, duration and frequency of exercise, along with vital signs pre, during and post exercise and EKG rhythm strips. Margot Richardson RN [facility] NoteHNO ID: [id number] Author: JOSEFA MANNING Oracle Database Administrator Service: ? Author Type: Oracle Database Administrator Type: Progress Notes Filed: 09/06/2023 11:41 Note Text: Cardiac Rehab exercise class Cardiac Rehabilitation [facility] Supervising Physician: Derrell Diagnosis: Hx of cabg (primary encounter diagnosis) Phase: 2 Monitored: yes Session Number: 30 Patient negative for COVID exposure and symptoms. Today?s exercise session was comprised of a warm-up, aerobic conditioning phase, aerobic, cool down, and free weights and/or resistance machines. Patient tolerated prescribed exercise workload. Tele SB-SR- PVCs. Vitals WNL for patient. No chest discomfort. No medication changes. This is a hospital based cardiac rehab program. Patient working towards exercise goals by increasing exercise frequency and/or intensity and/or duration. Patient working towards educational goals by attending education classes or receiving and reviewing educational materials with staff. Patient has verbalized understanding of Exercise FITT Principles education topic and the relation to disease management. Patient?s [facility] Exercise sessions will be scanned into IVDesk once it is completed. These can be viewed by going under the ?Scanned Documents? tab and looking for documents labeled ?Cardiac Rehabilitation.? [facility] Exercise session contains exercise data such as, but not limited to modality, intensity, duration and frequency of exercise, along with vital signs pre, during and post exercise and EKG rhythm strips. Josefa Manning [facility] History of Present illness Narrative* Josefa Manning Oracle Database Administrator - 09/06/2023 11:40 AM EST Cardiac Rehab exercise class Cardiac Rehabilitation [facility] Based Program Supervising Physician: Derrell Diagnosis: Hx of cabg (primary encounter diagnosis) Phase: 2 Monitored: yes Session Number: 30 Patient negative for COVID exposure and symptoms. Today s exercise session was comprised of a warm-up, aerobic conditioning phase, aerobic, cool down, and free weights and/or resistance machines. Patient tolerated prescribed exercise workload. Tele SB-SR- PVCs. Vitals WNL for patient. No chest discomfort. No medication changes. This is a hospital based cardiac rehab program. Patient working towards exercise goals by increasing exercise frequency and/or intensity and/or duration. Patient working towards educational goals by attending education classes or receiving and reviewing educational materials with staff. Patient has verbalized understanding of Exercise FITT Principles education topic and the relation to disease management. [facility] will be [facility] into IVDesk once it is completed. These can be viewed by going under the Scanned Documents tab and looking for documents labeled Card[facility]. [facility] contains exercise data such as, but not limited to modality, intensity, duration and frequency of exercise, along with vital signs pre, during and post exercise and EKG rhythm strips. Josefa Manning Oracle Database Administrator documented in this [facility]Wilson [facility]24 NoteHNO ID: [id number] Author: MARGOT RICHARDSON RN Service: ? Author Type: Registered Nurse Type: Progress Notes Filed: 09/03/2023 11:38 Note Text: Cardiac Rehab exercise class Cardiac Rehabilitation [facility] Based Program Supervising Physician: Derrell Diagnosis: Hx of cabg (primary encounter diagnosis) Phase: 2 Monitored: yes Session Number: 29 Patient negative for COVID exposure and symptoms. Today?s exercise session was comprised of a warm-up, aerobic conditioning phase, aerobic, cool down, and free weights and/or resistance machines. Patient tolerated prescribed exercise workload. Tele SB-SR, PVC. Asymptomatic with ectopic beats.Vitals WNL for patient. No chest discomfort. No medication changes. This is a hospital based cardiac rehab program. Patient working towards exercise goals by increasing exercise frequency and/or intensity and/or duration. Patient working towards educational goals by attending education classes or receiving and reviewing educational materials with staff. Patient has verbalized understanding of FITT education topic and the relation to disease management. Patient?s [facility] Exercise sessions will be scanned into IVDesk once it is completed. These can be viewed by going under the ?Scanned Documents? tab and looking for documents labeled ?Cardiac Rehabilitation.? [facility] Exercise session contains exercise data such as, but not limited to modality, intensity, duration and frequency of exercise, along with vital signs pre, during and post exercise and EKG rhythm strips. Margot Richardson [facility]01-26-2024 NoteHNO ID: [id number] Author: ALANA MENON RN Service: ? Author Type: Registered Nurse Type: Progress Notes Filed: 08/30/2023 11:34 Note Text: Cardiac Rehab exercise class Cardiac Rehabilitation [facility] Supervising Physician: Marilyn Dove Diagnosis: Hx of cabg (primary encounter diagnosis) Phase: 2 Monitored: yes Session Number: 28 Patient negative for COVID exposure and symptoms. Today?s exercise session was comprised of a warm-up, aerobic conditioning phase, aerobic, cool down, and free weights and/or resistance machines. Patient tolerated prescribed exercise workload. Tele SB-SR- without ectopic beats. Vitals WNL for patient. No chest discomfort. No medication changes. This is a hospital based cardiac rehab program. Patient working towards exercise goals by increasing exercise frequency and/or intensity and/or duration. Patient working towards educational goals by attending education classes or receiving and reviewing educational materials with staff. Patient has verbalized understanding of Heart Healthy Fats, Med diet education topic and the relation to disease management. Patient?s [facility] Exercise sessions will be scanned into IVDesk once it is completed. These can be viewed by going under the ?Scanned Documents? tab and looking for documents labeled ?Cardiac Rehabilitation.? [facility] Exercise session contains exercise data such as, but not limited to modality, intensity, duration and frequency of exercise, along with vital signs pre, during and post exercise and EKG rhythm strips. [facility] Menon [facility]24 NoteHNO ID: [id number] Author: ADELIA ARCOS RN Service: ? Author Type: Registered Nurse Type: Progress Notes Filed: 08/27/2023 11:36 Note Text: Cardiac Rehab exercise class Cardiac Rehabilitation [facility] Based Program Supervising Physician: Dr. Dove Diagnosis: Hx of cabg (primary encounter diagnosis) Phase: 2 Monitored: yes Session Number: 27 Patient negative for COVID exposure and symptoms. Today?s exercise session was comprised of a warm-up, aerobic conditioning phase, aerobic, cool down, and free weights and/or resistance machines. Patient tolerated prescribed exercise workload. Tele -SR-without ectopic beats. Vitals WNL for patient. No chest discomfort. No medication changes. This is a hospital based cardiac rehab program. Patient working towards exercise goals by increasing exercise frequency and/or intensity and/or duration. Patient working towards educational goals by attending education classes or receiving and reviewing educational materials with staff. Patient has verbalized understanding of Fats Friend or foe education topic and the relation to disease management. Patient?s [facility] Exercise sessions will be scanned into IVDesk once it is completed. These can be viewed by going under the ?Scanned Documents? tab and looking for documents labeled ?Cardiac Rehabilitation.? [facility] Exercise session contains exercise data such as, but not limited to modality, intensity, duration and frequency of exercise, along with vital signs pre, during and post exercise and EKG rhythm strips. Adelia Arcos [facility]01-18-2024 NoteHNO ID: [id number] Author: ALANA MENON RN Service: ? Author Type: Registered Nurse Type: Progress Notes Filed: 08/22/2023 11:30 Note Text: Cardiac Rehab exercise class Cardiac Rehabilitation [facility] Supervising Physician: Marilyn Dove Diagnosis: Hx of cabg (primary encounter diagnosis) Phase: 2 Monitored: yes Session Number: 26 Patient negative for COVID exposure and symptoms. Today?s exercise session was comprised of a warm-up, aerobic conditioning phase, aerobic, cool down, and free weights and/or resistance machines. Patient tolerated prescribed exercise workload. Tele SB-SR without ectopic beats. Vitals WNL for patient. No chest discomfort. No medication changes. This is a hospital based cardiac rehab program. Patient working towards exercise goals by increasing exercise frequency and/or intensity and/or duration. Patient working towards educational goals by attending education classes or receiving and reviewing educational materials with staff. Patient has verbalized understanding of Medications education topic and the relation to disease management. Patient?s [facility] Exercise sessions will be scanned into IVDesk once it is completed. These can be viewed by going under the ?Scanned Documents? tab and looking for documents labeled ?Cardiac Rehabilitation.? [facility] Exercise session contains exercise data such as, but not limited to modality, intensity, duration and frequency of exercise, along with vital signs pre, during and post exercise and EKG rhythm strips. Alana Menon [facility]01-16-2024 NoteHNO ID: [id number] Author: MARGOT RICHARDSON RN Service: ? Author Type: Registered Nurse Type: Progress Notes Filed: 08/29/2023 08:06 Note Text: Summary: Cardiac Rehab 90 day assessment, please review and sign 90 DAY Assessment for Cardiac Rehab Dino Blandon 08/20/2023 CHIEF COMPLAINT: Dino Blandon is a 73 year old male seen today. Patient presents with: Phase 2 Session HISTORY OF PRESENT ILLNESS: PAST MEDICAL HISTORY Diagnosis Date Chronic kidney disease, stage III (moderate) (HCC) Essential hypertension Pneumothorax on right PAST SURGICAL HISTORY Procedure Laterality Date CABG (3) VEIN GRAFTS AND ARTERIAL GRAFT(S) 04/09/2023 (RODARTE-LAD / SVG-RAMUS / SVG-RC) Social History Tobacco Use Smoking status: Never Smokeless tobacco: Never Vaping Use Vaping Use: Never used Alcohol use: Never Drug use: Never FAMILY HISTORY Problem Relation Age of Onset other (Myocardial infarction) Mother Diabetes Mother other (CABG) Brother Heart Failure Brother Heart disease Brother PPM amnd fabian replacement CURRENT MEDS: Current Outpatient Medications Medication Sig atorvastatin (LIPITOR) 40 mg tablet Take 1 tablet by mouth daily at bedtime. carvedilol (COREG) 12.5 mg tablet Take 1 tablet by mouth two times a day with meals. glimepiride (AMARYL) 1 mg tablet Take 1 tablet by mouth daily with breakfast. amLODIPine (NORVASC) 5 mg tablet Take 2 tablets by mouth once daily. blood sugar diagnostic (ACCU-CHEK GUIDE TEST STRIPS) test strip Use as instructed twice daily tamsulosin (FLOMAX) 0.4 mg Take 1 capsule by mouth daily at bedtime. acetaminophen (TYLENOL) 325 mg tablet Take 2 tablets by mouth every 6 hours as needed for pain. aspirin 81 mg chewable tablet 1 tablet by ORAL/FEEDING TUBE route once daily. Lancets (ACCU-CHEK SOFTCLIX LANCETS) lancets Use as instructed twice daily No current facility-administered medications for this visit. ALLERGIES No Known Allergies PHYSICAL EXAMINATION: BP 130/70 Pulse 61 Wt 213 lb (96.6kg) INDIVIDUAL TREATMENT PLAN Program Location: [facility] EXERCISE REASSESSMENT Current Exercise at Rehab: aerobic and resistance Treadmill METS : 2.2 Stepper METS : 3.5 Recumbent Bike METS: 6.5 RT Weight : 6 lbs (hand weights) Home Exercise: Yes Mode: cardioglyde Intensity: moderate Duration: twice a week Current Symptoms: Asymptomatic Education Completed: RPE, Equipment Orientation, Signs and Symptoms, Target Heart Rate Range, Hand Hygiene, Cleaning of Equipment, Warm Up/Cool Down, Safety Guidelines, Exercise Prescription, Exercise Considerations, Exercise Safety, Exercise Benefits EXERCISE INTERVENTION/PRESCRIPTION Aerobic: Yes Frequency: 3-5 Per Week Mode: Treadmill, Recumbent Stepper, Arm Ergometer, Recumbent Bike, Weights, Walking Intensity: moderate METS: 5-6 Workload: as tolerated RPE: 3-5 Initial Duration (minutes): 30 minutes Progression: 0.5 Mets Every 1-2 Weeks as Tolerated Resistance Training: yes (hand weights) WT Intensity: Weight to Have Local Muscle Fatigue in 10-12 Reps With 2-3 Sets Minutes per Week of Exercise : 150 Patient Understands Intervention: Needs Reinforcement EXERCISE GOAL Distance on 6 Min Walk Test : 955 Increase in Estimated METS: (goal to increase METS by 40% on highest mode and increase 6MWT by 15%) Duration of Exer Min Per Session: 60 Minutes Per Week of Exercise : 150 Home Exercise Plan: yes (continue to exercise at home using cardioglyde) Other: Increase Endurance, Increase Strength NUTRITION REASSESSMENT Actual Mediterranean Diet Score: 9 Mediterranean Diet Score: 8-9 Moderate-some changes needed: Yes Current Diet: Diabetic, Low Saturated Fat, Low Sodium Alcohol Servings: 0 per week Education Completed: Heart Healthy Nutrition, Increase Fruit/Vegetables, Decreased Fat Intake, Heart Healthy Eating for Life, Reading Labels, Low Sodium Diet, Cholesterol Lowering Strategies, Shop Healthy/Cook Healthy NUTRITION INTERVENTION/GOAL Treatment Plan: Cardiac Rehab Goal: Improve Mediterranean Diet Score, Weight Loss Patient Understands Intervention: Yes OTHER CORE COMPONENTS/RISK FACTORS REASSESSMENT Hyperlipidemia: Yes Medication Compliance: Yes Diabetes: Yes FB Monitor BG at Home: Yes Medication Compliance: Yes Current Weight lb.: 213 lbs. Current BMI: 36 Hypertension: Yes Medication Compliance: Yes Knowledge of Appropriate Level: Yes Medication: Yes Tobacco Use: Never Education Completed: Cardiac Medications, Cardiac Risk Factors CORE COMPONENTS INTERVENTION Hyperlipidemia: Continue Medication, Dietary Modification, Exercise, Weight Loss Diabetes: Exercise, Dietary Modification, Continue Medication, Weight Loss Weight Management: Dietary Mo (more content not included)...[facility] 08-20-2023 NoteHNO ID: [id number] Author: MARGOT RICHARDSON RN Service: ? Author Type: Registered Nurse Type: Progress Notes Filed: 08/20/2023 11:40 Note Text: Cardiac Rehab exercise class Cardiac Rehabilitation [facility] Supervising Physician: Derrell Diagnosis: Hx of cabg (primary encounter diagnosis) Phase: 2 Monitored: yes Session Number: 25 Patient negative for COVID exposure and symptoms. Today?s exercise session was comprised of a warm-up, aerobic conditioning phase, aerobic, cool down, and free weights and/or resistance machines. Patient tolerated prescribed exercise workload. Tele SB-SR 1st degree, PVCs. Asymptomatic with ectopic beats. Vitals WNL for patient. No chest discomfort. No medication changes. This is a hospital based cardiac rehab program. Patient working towards exercise goals by increasing exercise frequency and/or intensity and/or duration. Patient working towards educational goals by attending education classes or receiving and reviewing educational materials with staff. Patient has verbalized understanding of Medications education topic and the relation to disease management. Patient?s [facility] Exercise sessions will be scanned into IVDesk once it is completed. These can be viewed by going under the ?Scanned Documents? tab and looking for documents labeled ?Cardiac Rehabilitation.? [facility] Exercise session contains exercise data such as, but not limited to modality, intensity, duration and frequency of exercise, along with vital signs pre, during and post exercise and EKG rhythm strips. Margot Richardson [facility]01-12-2024 NoteHNO ID: [id number] Author: MARGOT RICHARDSON RN Service: ? Author Type: Registered Nurse Type: Progress Notes Filed: 08/16/2023 11:47 Note Text: Cardiac Rehab exercise class Cardiac Rehabilitation [facility] Supervising Physician: Derrell Diagnosis: Hx of cabg (primary encounter diagnosis) Phase: 2 Monitored: yes Session Number: 24 Patient negative for COVID exposure and symptoms. Today?s exercise session was comprised of a warm-up, aerobic conditioning phase, aerobic, cool down, and free weights and/or resistance machines. Patient tolerated prescribed exercise workload. Tele SB-SR PACs, Asymptomatic with ectopy. Vitals WNL for patient. No chest discomfort. No medication changes. This is a hospital based cardiac rehab program. Patient working towards exercise goals by increasing exercise frequency and/or intensity and/or duration. Patient working towards educational goals by attending education classes or receiving and reviewing educational materials with staff. Patient has verbalized understanding of Coronary Risk Factors education topic and the relation to disease management. Patient?s [facility] Exercise sessions will be scanned into IVDesk once it is completed. These can be viewed by going under the ?Scanned Documents? tab and looking for documents labeled ?Cardiac Rehabilitation.? [facility] Exercise session contains exercise data such as, but not limited to modality, intensity, duration and frequency of exercise, along with vital signs pre, during and post exercise and EKG rhythm strips. Margot Richardson [facility]01-11-2024 NoteHNO ID: [id number] Author: ALANA MENON RN Service: ? Author Type: Registered Nurse Type: Progress Notes Filed: 08/15/2023 11:37 Note Text: Cardiac Rehab exercise class Cardiac Rehabilitation [facility] Based Program Supervising Physician: Marilyn Dove Diagnosis: Hx of cabg (primary encounter diagnosis) Phase: 2 Monitored: yes Session Number: 23 Patient negative for COVID exposure and symptoms. Today?s exercise session was comprised of a warm-up, aerobic conditioning phase, aerobic, cool down, and free weights and/or resistance machines. Patient tolerated prescribed exercise workload. Tele SR PVCs; asymptomatic with ectopic beats. Vitals WNL for patient. No chest discomfort. No medication changes. This is a hospital based cardiac rehab program. Patient working towards exercise goals by increasing exercise frequency and/or intensity and/or duration. Patient working towards educational goals by attending education classes or receiving and reviewing educational materials with staff. Patient has verbalized understanding of CAD Risk Factors education topic and the relation to disease management. Patient?s [facility] Exercise sessions will be scanned into IVDesk once it is completed. These can be viewed by going under the ?Scanned Documents? tab and looking for documents labeled ?Cardiac Rehabilitation.? [facility] Exercise session contains exercise data such as, but not limited to modality, intensity, duration and frequency of exercise, along with vital signs pre, during and post exercise and EKG rhythm strips. [facility] NoteHNO ID: [id number] Author: ALANA MENON RN Service: ? Author Type: Registered Nurse Type: Progress Notes Filed: 08/13/2023 11:42 Note Text: Cardiac Rehab exercise class Cardiac Rehabilitation [facility] Program Supervising Physician: Marilyn Dove Diagnosis: Hx of cabg (primary encounter diagnosis) Phase: 2 Monitored: yes Session Number: 22 Patient negative for COVID exposure and symptoms. Today?s exercise session was comprised of a warm-up, aerobic conditioning phase, aerobic, cool down, and free weights and/or resistance machines. Patient tolerated prescribed exercise workload. Tele-SR-PAC/PVC; asymptomatic with ectopic beats. Vitals WNL for patient. No chest discomfort. No medication changes. This is a hospital based cardiac rehab program. Patient working towards exercise goals by increasing exercise frequency and/or intensity and/or duration. Patient working towards educational goals by attending education classes or receiving and reviewing educational materials with staff. Patient has verbalized understanding of CAD Risk Factors education topic and the relation to disease management. Patient?s [facility] Exercise sessions will be scanned into IVDesk once it is completed. These can be viewed by going under the ?Scanned Documents? tab and looking for documents labeled ?Cardiac Rehabilitation.? [facility] Exercise session contains exercise data such as, but not limited to modality, intensity, duration and frequency of exercise, along with vital signs pre, during and post exercise and EKG rhythm strips. [facility] NoteHNO ID: [id number] Author: ALANA MENON RN Service: ? Author Type: Registered Nurse Type: Progress Notes Filed: 08/09/2023 11:30 Note Text: Cardiac Rehab exercise class Cardiac Rehabilitation [facility] Based Program Supervising Physician: Marilyn Dove Diagnosis: Hx of cabg (primary encounter diagnosis) Phase: 2 Monitored: yes Session Number: 21 Patient negative for COVID exposure and symptoms. Today?s exercise session was comprised of a warm-up, aerobic conditioning phase, aerobic, cool down, and free weights and/or resistance machines. Patient tolerated prescribed exercise workload. Tele SB-SR-PVC; asymptomatic with ectopic beats. Vitals WNL for patient. No chest discomfort. No medication changes. This is a hospital based cardiac rehab program. Patient working towards exercise goals by increasing exercise frequency and/or intensity and/or duration. Patient working towards educational goals by attending education classes or receiving and reviewing educational materials with staff. Patient has verbalized understanding of Reading labels, Heart Healthy diet education topic and the relation to disease management. Patient?s [facility] Exercise sessions will be scanned into IVDesk once it is completed. These can be viewed by going under the ?Scanned Documents? tab and looking for documents labeled ?Cardiac Rehabilitation.? [facility] Exercise session contains exercise data such as, but not limited to modality, intensity, duration and frequency of exercise, along with vital signs pre, during and post exercise and EKG rhythm strips. Alana Menon [facility]01-04-2024 NoteHNO ID: [id number] Author: ALANA MENON RN Service: ? Author Type: Registered Nurse Type: Progress Notes Filed: 08/08/2023 11:41 Note Text: Cardiac Rehab exercise class Cardiac Rehabilitation [facility] Based Program Supervising Physician: Marilyn Dove Diagnosis: Hx of cabg (primary encounter diagnosis) Phase: 2 Monitored: yes Session Number: 20 Patient negative for COVID exposure and symptoms. Today?s exercise session was comprised of a warm-up, aerobic conditioning phase, aerobic, cool down, and free weights and/or resistance machines. Patient tolerated prescribed exercise workload. Tele SR-PVC; asymptomatic with ectopic beats. Vitals WNL for patient. No chest discomfort. No medication changes. This is a hospital based cardiac rehab program. Patient working towards exercise goals by increasing exercise frequency and/or intensity and/or duration. Patient working towards educational goals by attending education classes or receiving and reviewing educational materials with staff. Patient has verbalized understanding of Reading labels, heart healthy eating education topic and the relation to disease management. Patient?s [facility] Exercise sessions will be scanned into IVDesk once it is completed. These can be viewed by going under the ?Scanned Documents? tab and looking for documents labeled ?Cardiac Rehabilitation.? [facility] Exercise session contains exercise data such as, but not limited to modality, intensity, duration and frequency of exercise, along with vital signs pre, during and post exercise and EKG rhythm strips. Alana Menon [facility]12-29-2023 NoteHNO ID: [id number] Author: Adelia Arcos RN Service: ? Author Type: Registered Nurse Type: Progress Notes Filed: 08/02/2023 11:31 AM Note Text: Cardiac Rehab exercise class [facility] Rehabilitation [facility] Supervising Physician: Dr. Dove Diagnosis: Hx of cabg (primary encounter diagnosis) Phase: 2 Monitored: yes Session Number: 19 Patient negative for COVID exposure and symptoms. Today?s exercise session was comprised of a warm-up, aerobic conditioning phase, aerobic, cool down, and free weights and/or resistance machines. Patient tolerated prescribed exercise workload. Tele SR PVC. Vitals WNL for patient. No chest discomfort. No medication changes. This is a hospital based cardiac rehab program. Patient working towards exercise goals by increasing exercise frequency and/or intensity and/or duration. Patient working towards educational goals by attending education classes or receiving and reviewing educational materials with staff. Patient?s [facility] Exercise sessions will be scanned into IVDesk once it is completed. These can be viewed by going under the ?Scanned Documents? tab and looking for documents labeled ?Cardiac Rehabilitation.? [facility] Exercise session contains exercise data such as, but not limited to modality, intensity, duration and frequency of exercise, along with vital signs pre, during and post exercise and EKG rhythm strips. Adelia Arcos [facility]12-28-2023 NoteHNO ID: [id number] Author: Alana Menon RN Service: ? Author Type: Registered Nurse Type: Progress Notes Filed: 08/01/2023 11:45 AM Note Text: Cardiac Rehab exercise class Card[facility] Rehabilitation [facility] Supervising Physician: Marilyn Dove Diagnosis: Hx of cabg (primary encounter diagnosis) Phase: 2 Monitored: yes Session Number: 18 Patient negative for COVID exposure and symptoms. Today?s exercise session was comprised of a warm-up, aerobic conditioning phase, aerobic, cool down, and free weights and/or resistance machines. Patient tolerated prescribed exercise workload. Tele SB-SR-PACs; asymptomatic with ectopic beats. Vitals WNL for patient. No chest discomfort. No medication changes. This is a hospital based cardiac rehab program. Patient working towards exercise goals by increasing exercise frequency and/or intensity and/or duration. Patient working towards educational goals by attending education classes or receiving and reviewing educational materials with staff. Patient?s [facility] Exercise sessions will be scanned into IVDesk once it is completed. These can be viewed by going under the ?Scanned Documents? tab and looking for documents labeled ?Cardiac Rehabilitation.? [facility] Exercise session contains exercise data such as, but not limited to modality, intensity, duration and frequency of exercise, along with vital signs pre, during and post exercise and EKG rhythm strips. Alana Menon [facility]12-21-2023 NoteHNO ID: [id number] Author: Alana Menon RN Service: ? Author Type: Registered Nurse Type: Progress Notes Filed: 07/25/2023 11:27 AM Note Text: Cardiac Rehab exercise class Card[facility] Rehabilitation [facility] Supervising Physician: Marilyn Dove Diagnosis: Hx of cabg (primary encounter diagnosis) Phase: 2 Monitored: yes Session Number: 17 Patient negative for COVID exposure and symptoms. Today?s exercise session was comprised of a warm-up, aerobic conditioning phase, aerobic, cool down, and free weights and/or resistance machines. Patient tolerated prescribed exercise workload. Tele SB-SR- without ectopic beats. Vitals WNL for patient. No chest discomfort. No medication changes. This is a hospital based cardiac rehab program. Patient working towards exercise goals by increasing exercise frequency and/or intensity and/or duration. Patient working towards educational goals by attending education classes or receiving and reviewing educational materials with staff. Patient has verbalized understanding of FITT Exercise Principles education topic and the relation to disease management. Patient?s [facility] Exercise sessions will be scanned into IVDesk once it is completed. These can be viewed by going under the ?Scanned Documents? tab and looking for documents labeled ?Cardiac Rehabilitation.? [facility] Exercise session contains exercise data such as, but not limited to modality, intensity, duration and frequency of exercise, along with vital signs pre, during and post exercise and EKG rhythm strips. [facility] of Present illness Narrative* Alana Menon RN - 07/25/2023 11:03 AM EST Cardiac Rehab exercise class Cardiac Rehabilitation [facility] Supervising Physician: Marilyn Dove Diagnosis: Hx of cabg (primary encounter diagnosis) Phase: 2 Monitored: yes Session Number: 17 Patient negative for COVID exposure and symptoms. Today s exercise session was comprised of a warm-up, aerobic conditioning phase, aerobic, cool down, and free weights and/or resistance machines. Patient tolerated prescribed exercise workload. Tele SB-SR- without ectopic beats. Vitals WNL for patient. No chest discomfort. No medication changes. This is a hospital based cardiac rehab program. Patient working towards exercise goals by increasing exercise frequency and/or intensity and/or duration. Patient working towards educational goals by attending education classes or receiving and reviewing educational materials with staff. Patient has verbalized understanding of FITT Exercise Principles education topic and the relation to disease management. Patient s [facility] Exercise sessions will be scanned into IVDesk once it is completed. These can be viewed by going under the Scanned Documents tab and looking for documents labeled Cardiac Rehabilitation. [facility] Exercise session contains exercise data such as, but not limited to modality, intensity, duration and frequency of exercise, along with vital signs pre, during and post exercise and EKG rhythm strips. [facility] NoteHNO ID: [id number] Author: ALANA MENON RN Service: ? Author Type: Registered Nurse Type: Progress Notes Filed: 08/08/2023 07:36 Note Text: 60 DAY Assessment for Cardiac Rehab Dino Blandon 07/23/2023 CHIEF COMPLAINT: Dino Blandon is a 73 year old male seen today. Patient presents with: Phase 2 Session HISTORY OF PRESENT ILLNESS: tele SB SR occ PAC PVC PAST MEDICAL HISTORY Diagnosis Date Chronic kidney disease, stage III (moderate) (HCC) Essential hypertension Pneumothorax on right PAST SURGICAL HISTORY Procedure Laterality Date CABG (3) VEIN GRAFTS AND ARTERIAL GRAFT(S) 04/09/2023 (RODARTE-LAD / SVG-RAMUS / SVG-RC) Social History Tobacco Use Smoking status: Never Smokeless tobacco: Never Vaping Use Vaping Use: Never used Alcohol use: Never Drug use: Never FAMILY HISTORY Problem Relation Age of Onset other (Myocardial infarction) Mother Diabetes Mother other (CABG) Brother Heart Failure Brother Heart disease Brother PPM amnd fabian replacement CURRENT MEDS: Current Outpatient Medications Medication Sig glimepiride (AMARYL) 1 mg tablet Take 1 tablet by mouth daily with breakfast. carvedilol (COREG) 12.5 mg tablet Take 1 tablet by mouth two times a day with meals. gabapentin (NEURONTIN) 100 mg capsule Take 1 capsule by mouth daily at bedtime for 14 days. bumetanide (BUMEX) 1 mg tablet Take 1 tablet Saturday, Saturday and Saturday. (Patient not taking: Reported on 07/03/2023) amLODIPine (NORVASC) 5 mg tablet Take 2 tablets by mouth once daily. blood sugar diagnostic (ACCU-CHEK GUIDE TEST STRIPS) test strip Use as instructed twice daily tamsulosin (FLOMAX) 0.4 mg Take 1 capsule by mouth daily at bedtime. acetaminophen (TYLENOL) 325 mg tablet Take 2 tablets by mouth every 6 hours as needed for pain. aspirin 81 mg chewable tablet 1 tablet by ORAL/FEEDING TUBE route once daily. atorvastatin (LIPITOR) 40 mg tablet Take 1 tablet by mouth daily at bedtime. Lancets (ACCU-CHEK SOFTCLIX LANCETS) lancets Use as instructed twice daily No current facility-administered medications for this visit. ALLERGIES No Known Allergies PHYSICAL EXAMINATION: BP 112/60 Pulse 58 Ht 5' 4.5 (1.64m) Wt 212 lb (96.2kg) BMI 35.84 kg/(m2). INDIVIDUAL TREATMENT PLAN Program Location: [facility] EXERCISE REASSESSMENT Current Exercise at Rehab: SB SR PAC PVC rare HR 49 Treadmill METS : 2.2 Stepper METS : 4.9 Recumbent Bike METS: 5.7 RT Weight : (3# HW) Home Exercise: Yes Mode: cardioglyde Intensity: low Duration: 15-20 min 2x week Current Symptoms: Asymptomatic Education Completed: RPE, Equipment Orientation, Signs and Symptoms, Target Heart Rate Range, Hand Hygiene, Cleaning of Equipment, Warm Up/Cool Down, Safety Guidelines, Exercise Prescription, Exercise Considerations, Equipment orientation, Exercise Safety, Exercise Benefits EXERCISE INTERVENTION/PRESCRIPTION Exercise Prescription: aerobic/resistance 3x week METS: initial MET goal 7-8 Workload: (increase as tolerated) RPE: 4-6 Initial Duration (minutes): 40 minutes Progression: 0.5 Mets Every 1-2 Weeks as Tolerated WT Intensity: Weight to Have Local Muscle Fatigue in 10-12 Reps With 2-3 Sets Minutes per Week of Exercise : 150 Patient Understands Intervention: Yes EXERCISE GOAL Peak METS on Discharge Exercise Test : 8 Distance on 6 Min Walk Test : (increase 15% or more) Increase in Estimated METS: (increase 40% or more) Duration of Exer Min Per Session: 40 Minutes Per Week of Exercise : 150 Home Exercise Plan: continue exercise on days off CR Other: Increase Endurance, Increase Strength NUTRITION REASSESSMENT Actual Mediterranean Diet Score: 9 Mediterranean Diet Score: 8-9 Moderate-some changes needed: Yes Current Diet: Mediterranean (has decreased NA and Sugar) Alcohol Servings: 0 per week Education Completed: Reading Labels, Portion Control, Decreased Fat Intake, Increase Fruit/Vegetables, Heart Healthy Eating for Life, Low Sodium Diet, Weight Loss Guidelines, Cholesterol Lowering Strategies, Shop Healthy/Cook Healthy, Heart Healthy Nutrition NUTRITION INTERVENTION/GOAL Treatment Plan: Cardiac Rehab, Nutrition Classes (declines animal doctor consult) Goal: Improve Mediterranean Diet Score, Weight Loss Patient Understands Intervention: Needs Reinforcement OTHER CORE COMPONENTS/RISK FACTORS REASSESSMENT Hyperlipidemia: Yes Recent Lab Value Date: 04/02/23 Medication Compliance: Yes Diabetes: Yes FB HGBA1C %: 6.9 Monitor BG at Home: Yes Hypoglycemia: No Hyperglycemia: No Medication Compliance: Yes Current Weight lb.: 212 lbs. (unchanged) Current BMI: 35.83 Hypertension: Yes Medication Compliance: (occ RBP 140-150s/70-80) Knowledge of Appropriate Level: Yes Medication: Yes Tobacco Use: Never Education Completed: Cardiac Risk Factors, Cardiac Medications CORE COMPONENTS INTERVENTION Hyperlipidemia: Continue Medic (more content not included)...[facility]12-19-2023 NoteHNO ID: [id number] Author: Alana Menon RN Service: ? Author Type: Registered Nurse Type: Progress Notes Filed: 07/23/2023 11:30 AM Note Text: Cardiac Rehab exercise class Card[facility] Rehabilitation [facility] Supervising Physician: Marilyn Dove Diagnosis: Hx of cabg (primary encounter diagnosis) Phase: 2 Monitored: yes Session Number: 16 Patient negative for COVID exposure and symptoms. Today?s exercise session was comprised of a warm-up, aerobic conditioning phase, aerobic, cool down, and free weights and/or resistance machines. Patient tolerated prescribed exercise workload. Tele SB-SR-PAC PVC; asymptomatic with ectopic beats. Vitals WNL for patient. No chest discomfort. No medication changes. This is a hospital based cardiac rehab program. Patient working towards exercise goals by increasing exercise frequency and/or intensity and/or duration. Patient working towards educational goals by attending education classes or receiving and reviewing educational materials with staff. Patient has verbalized understanding of FITT Exercise princiiples education topic and the relation to disease management. Patient?s [facility] Exercise sessions will be scanned into IVDesk once it is completed. These can be viewed by going under the ?Scanned Documents? tab and looking for documents labeled ?Cardiac Rehabilitation.? [facility] Exercise session contains exercise data such as, but not limited to modality, intensity, duration and frequency of exercise, along with vital signs pre, during and post exercise and EKG rhythm strips. [facility] History of Present illness Narrative* Alana Menon RN - 07/23/2023 11:10 AM EST Cardiac Rehab exercise class Cardiac Rehabilitation [facility] Based Program Supervising Physician: Marilyn Dove Diagnosis: Hx of cabg (primary encounter diagnosis) Phase: 2 Monitored: yes Session Number: 16 Patient negative for COVID exposure and symptoms. Today s exercise session was comprised of a warm-up, aerobic conditioning phase, aerobic, cool down, and free weights and/or resistance machines. Patient tolerated prescribed exercise workload. Tele SB-SR-PAC PVC; asymptomatic with ectopic beats. Vitals WNL for patient. No chest discomfort. No medication changes. This is a hospital based cardiac rehab program. Patient working towards exercise goals by increasing exercise frequency and/or intensity and/or duration. Patient working towards educational goals by attending education classes or receiving and reviewing educational materials with staff. Patient has verbalized understanding of FITT Exercise princiiples education topic and the relation to disease management. Patient s [facility] Exercise sessions will be scanned into IVDesk once it is completed. These can be viewed by going under the Scanned Documents tab and looking for documents labeled Cardiac Rehabilitation. [facility] Exercise session contains exercise data such as, but not limited to modality, intensity, duration and frequency of exercise, along with vital signs pre, during and post exercise and EKG rhythm strips. Alana Menon RN [facility] NoteHNO ID: [id number] Author: Margot Richardson RN Service: ? Author Type: Registered Nurse Type: Progress Notes Filed: 07/19/2023 11:40 AM Note Text: Cardiac Rehab exercise class Card[facility] Rehabilitation [facility] Supervising Physician: Derrell Diagnosis: Hx of cabg (primary encounter diagnosis) Phase: 2 Monitored: yes Session Number: 15 Patient negative for COVID exposure and symptoms. Today?s exercise session was comprised of a warm-up, aerobic conditioning phase, aerobic, cool down, and free weights and/or resistance machines. Patient tolerated prescribed exercise workload. Tele SB-SR without ectopic beats. Vitals WNL for patient. No chest discomfort. No medication changes. This is a hospital based cardiac rehab program. Patient working towards exercise goals by increasing exercise frequency and/or intensity and/or duration. Patient working towards educational goals by attending education classes or receiving and reviewing educational materials with staff. Patient has verbalized understanding of Fats, Friend or Foe education topic and the relation to disease management. Patient?s [facility] Exercise sessions will be scanned into IVDesk once it is completed. These can be viewed by going under the ?Scanned Documents? tab and looking for documents labeled ?Cardiac Rehabilitation.? [facility] Exercise session contains exercise data such as, but not limited to modality, intensity, duration and frequency of exercise, along with vital signs pre, during and post exercise and EKG rhythm strips. Margot Richardson [facility]12-14-2023 NoteHNO ID: [id number] Author: Carmencita Wolfe RN Service: ? Author Type: Registered Nurse Type: Progress Notes Filed: 07/18/2023 11:40 AM Note Text: Cardiac Rehab exercise class Card[facility] Rehabilitation [facility] Supervising Physician: Marilyn Dove Diagnosis: Hx of cabg (primary encounter diagnosis) Phase: 2 Monitored: yes Session Number: 14 Patient negative for COVID exposure and symptoms. Today?s exercise session was comprised of a warm-up, aerobic conditioning phase, aerobic, cool down, and free weights and/or resistance machines. Patient tolerated prescribed exercise workload. Tele NSR with first degree AV block and occasional PACs. Vitals WNL for patient. No chest discomfort. No medication changes. This is a hospital based cardiac rehab program. Patient working towards exercise goals by increasing exercise frequency and/or intensity and/or duration. Patient working towards educational goals by attending education classes or receiving and reviewing educational materials with staff. Patient has verbalized understanding of Fats: Friend or Foe education topic and the relation to disease management. Patient?s [facility] Exercise sessions will be scanned into IVDesk once it is completed. These can be viewed by going under the ?Scanned Documents? tab and looking for documents labeled ?Cardiac Rehabilitation.? [facility] Exercise session contains exercise data such as, but not limited to modality, intensity, duration and frequency of exercise, along with vital signs pre, during and post exercise and EKG rhythm strips. Carmencita Wolfe [facility]12-08-2023 NoteHNO ID: [id number] Author: Alana Menon RN Service: ? Author Type: Registered Nurse Type: Progress Notes Filed: 07/12/2023 11:34 AM Note Text: Cardiac Rehab exercise class Card[facility] Rehabilitation [facility] Supervising Physician: Marilyn Dove Diagnosis: Hx of cabg (primary encounter diagnosis) Phase: 2 Monitored: yes Session Number: 13 Patient negative for COVID exposure and symptoms. Today?s exercise session was comprised of a warm-up, aerobic conditioning phase, aerobic, cool down, and free weights and/or resistance machines. Patient tolerated prescribed exercise workload. Tele SB SR-PACs; asymptomatic with ectopic beats. Vitals WNL for patient. No chest discomfort. No medication changes. This is a hospital based cardiac rehab program. Patient working towards exercise goals by increasing exercise frequency and/or intensity and/or duration. Patient working towards educational goals by attending education classes or receiving and reviewing educational materials with staff. Patient has verbalized understanding of Medications education topic and the relation to disease management. Patient?s [facility] Exercise sessions will be scanned into IVDesk once it is completed. These can be viewed by going under the ?Scanned Documents? tab and looking for documents labeled ?Cardiac Rehabilitation.? [facility] Exercise session contains exercise data such as, but not limited to modality, intensity, duration and frequency of exercise, along with vital signs pre, during and post exercise and EKG rhythm strips. [facility] of Present illness Narrative* Alana Menon RN - 07/12/2023 10:49 AM EST Cardiac Rehab exercise class Cardiac Rehabilitation [facility] Supervising Physician: Marilyn Dove Diagnosis: Hx of cabg (primary encounter diagnosis) Phase: 2 Monitored: yes Session Number: 13 Patient negative for COVID exposure and symptoms. Today s exercise session was comprised of a warm-up, aerobic conditioning phase, aerobic, cool down, and free weights and/or resistance machines. Patient tolerated prescribed exercise workload. Tele SB SR-PACs; asymptomatic with ectopic beats. Vitals WNL for patient. No chest discomfort. No medication changes. This is a hospital based cardiac rehab program. Patient working towards exercise goals by increasing exercise frequency and/or intensity and/or duration. Patient working towards educational goals by attending education classes or receiving and reviewing educational materials with staff. Patient has verbalized understanding of Medications education topic and the relation to disease management. Patient s [facility] Exercise sessions will be scanned into IVDesk once it is completed. These can be viewed by going under the Scanned Documents tab and looking for documents labeled Cardiac Rehabilitation. [facility] Exercise session contains exercise data such as, but not limited to modality, intensity, duration and frequency of exercise, along with vital signs pre, during and post exercise and EKG rhythm strips. Alana Menon RN [facility]23 NoteHNO ID: [id number] Author: Alana Menon RN Service: ? Author Type: Registered Nurse Type: Progress Notes Filed: 07/11/2023 11:27 AM Note Text: Cardiac Rehab exercise class Cardiac Rehabilitation [facility] Supervising Physician: Marilyn Dvoe Diagnosis: Hx of cabg (primary encounter diagnosis) Phase: 2 Monitored: yes Session Number: 12 Patient negative for COVID exposure and symptoms. Today?s exercise session was comprised of a warm-up, aerobic conditioning phase, aerobic, cool down, and free weights and/or resistance machines. Patient tolerated prescribed exercise workload. Tele SB-SR-PAC; asymptomatic with ectopic beats. Vitals WNL for patient. No chest discomfort. No medication changes. This is a hospital based cardiac rehab program. Patient working towards exercise goals by increasing exercise frequency and/or intensity and/or duration. Patient working towards educational goals by attending education classes or receiving and reviewing educational materials with staff. Patient has verbalized understanding of Medications education topic and the relation to disease management. Patient?s [facility] Exercise sessions will be scanned into IVDesk once it is completed. These can be viewed by going under the ?Scanned Documents? tab and looking for documents labeled ?Cardiac Rehabilitation.? [facility] Exercise session contains exercise data such as, but not limited to modality, intensity, duration and frequency of exercise, along with vital signs pre, during and post exercise and EKG rhythm strips. [facility] History of Present illness Narrative* Alana Menon RN - 07/11/2023 10:57 AM EST Cardiac Rehab exercise class Cardiac Rehabilitation [facility] Based Program Supervising Physician: Marilyn Dove Diagnosis: Hx of cabg (primary encounter diagnosis) Phase: 2 Monitored: yes Session Number: 12 Patient negative for COVID exposure and symptoms. Today s exercise session was comprised of a warm-up, aerobic conditioning phase, aerobic, cool down, and free weights and/or resistance machines. Patient tolerated prescribed exercise workload. Tele SB-SR-PAC; asymptomatic with ectopic beats. Vitals WNL for patient. No chest discomfort. No medication changes. This is a hospital based cardiac rehab program. Patient working towards exercise goals by increasing exercise frequency and/or intensity and/or duration. Patient working towards educational goals by attending education classes or receiving and reviewing educational materials with staff. Patient has verbalized understanding of Medications education topic and the relation to disease management. Patient s [facility] Exercise sessions will be scanned into IVDesk once it is completed. These can be viewed by going under the Scanned Documents tab and looking for documents labeled Cardiac Rehabilitation. [facility] Exercise session contains exercise data such as, but not limited to modality, intensity, duration and frequency of exercise, along with vital signs pre, during and post exercise and EKG rhythm strips. Alana Menon RN documented in this encounterWilson [facility]12-[facility] History of Present illness Narrative* Alana Menon RN - 07/09/2023 11:09 AM EST Cardiac Rehab exercise class Cardiac Rehabilitation [facility] Supervising Physician: Marilyn Dove Diagnosis: Hx of cabg (primary encounter diagnosis) Phase: 2 Monitored: yes Session Number: 11 Patient negative for COVID exposure and symptoms. Today s exercise session was comprised of a warm-up, aerobic conditioning phase, aerobic, cool down, and free weights and/or resistance machines Patient tolerated prescribed exercise workload. Tele -SR-without ectopic beats. Vitals WNL for patient. No chest discomfort. No medication changes. This is a hospital based cardiac rehab program. Patient working towards exercise goals by increasing exercise frequency and/or intensity and/or duration. Patient working towards educational goals by attending education classes or receiving and reviewing educational materials with staff. Patient has verbalized understanding of Medications education topic and the relation to disease management. Patient s [facility] Exercise sessions will be scanned into IVDesk once it is completed. These can be viewed by going under the Scanned Documents tab and looking for documents labeled Cardiac Rehabilitation. [facility] Exercise session contains exercise data such as, but not limited to modality, intensity, duration and frequency of exercise, along with vital signs pre, during and post exercise and EKG rhythm strips. Alana Menon RN documented in this encounterWilson [facility] Hospital12-01-2023 History of Present illness Narrative* Margot Richardson RN - 07/05/2023 11:00 AM EST Cardiac Rehab exercise class Cardiac Rehabilitation [facility] Based Program Supervising Physician: Derrell Diagnosis: Hx of cabg (primary encounter diagnosis) Phase: 2 Monitored: yes Session Number: 10 Patient negative for COVID exposure and symptoms. Today s exercise session was comprised of a warm-up, aerobic conditioning phase, aerobic, cool down, and free weights and/or resistance machines. Patient tolerated prescribed exercise workload. Tele SR without ectopic beats. Vitals WNL for patient. No chest discomfort. No medication changes. This is a hospital based cardiac rehab program. Patient working towards exercise goals by increasing exercise frequency and/or intensity and/or duration. Patient working towards educational goals by attending education classes or receiving and reviewing educational materials with staff. Patient has verbalized understanding of Coronary Risk Factors education topic and the relation to disease management. Patient s [facility] Exercise sessions will be scanned into IVDesk once it is completed. These can be viewed by going under the Scanned Documents tab and looking for documents labeled Cardiac Rehabilitation. [facility] Exercise session contains exercise data such as, but not limited to modality, intensity, duration and frequency of exercise, along with vital signs pre, during and post exercise and EKG rhythm strips. Margot Richardson RN documented in this encounterWilson [facility] Hospital11-30-2023 History of Present illness Narrative* Alana Menon RN - 07/04/2023 11:10 AM EST Cardiac Rehab exercise class Cardiac Rehabilitation [facility] Program Supervising Physician: Marilyn Dove Diagnosis: Hx of cabg (primary encounter diagnosis) Phase: 2 Monitored: yes Session Number: 9 Patient negative for COVID exposure and symptoms. Today s exercise session was comprised of a warm-up, aerobic conditioning phase, aerobic, cool down, and free weights and/or resistance machines. Patient tolerated prescribed exercise workload. Tele -SR-without ectopic beats. Vitals WNL for patient. No chest discomfort. No medication changes. This is a hospital based cardiac rehab program. Patient working towards exercise goals by increasing exercise frequency and/or intensity and/or duration. Patient working towards educational goals by attending education classes or receiving and reviewing educational materials with staff. Patient has verbalized understanding of CAD Risk Factors education topic and the relation to disease management. Patient s [facility] Exercise sessions will be scanned into IVDesk once it is completed. These can be viewed by going under the Scanned Documents tab and looking for documents labeled Cardiac Rehabilitation. [facility] Exercise session contains exercise data such as, but not limited to modality, intensity, duration and frequency of exercise, along with vital signs pre, during and post exercise and EKG rhythm strips. Alana Menon RN documented in this encounterWilson Memorial Hospital11-29-2023 History of Present illness Narrative* Kezia Cline APRN.KEYUR - 07/03/2023 1:00 PM EST Images from the original note were not included. [facility] [place] [facility] Department of Cardiovascular Medicine DEPARTMENT OF CARDIAC SURGERY OUTPATIENT VISIT DATE July 03, 2023 OUTPATIENT VISIT TYPE FOLLOW UP Dino Blandon is a 73 year old male who is here for return post op follow up visit. Most recent Cardiac Surgery: Surgeon: Christian Pritchard MD, S/P on 04/09/2023: CABG x3 (RODARTE-LAD / SVG-RAMUS / SVG-RC HPI: svg wound check Allergies: ALLERGIES No Known Allergies Medications: Current Outpatient Medications Medication Sig bumetanide (BUMEX) 1 mg tablet Take 1 tablet Saturday, Saturday and Saturday. amLODIPine (NORVASC) 5 mg tablet Take 2 tablets by mouth once daily. blood sugar diagnostic (ACCU-CHEK GUIDE TEST STRIPS) test strip Use as instructed twice daily tamsulosin (FLOMAX) 0.4 mg Take 1 capsule by mouth daily at bedtime. (Patient not taking: Reported on 06/03/2023) acetaminophen (TYLENOL) 325 mg tablet Take 2 tablets by mouth every 6 hours as needed for pain. aspirin 81 mg chewable tablet 1 tablet by ORAL/FEEDING TUBE route once daily. atorvastatin (LIPITOR) 40 mg tablet Take 1 tablet by mouth daily at bedtime. carvedilol (COREG) 12.5 mg tablet Take 1 tablet by mouth twice daily with meals. glimepiride (AMARYL) 1 mg tablet Take 1 tablet by mouth daily with breakfast. (Patient not taking: Reported on 06/11/2023) Lancets (ACCU-CHEK SOFTCLIX LANCETS) lancets Use as instructed twice daily No current facility-administered medications for this visit. Medications and Allergies have been reviewed. Pain scale :Yes LOCATION: right svg PAIN SCALE: 2 on a scale of 0-10 Appetite: appetite good Sleep: no problems with sleep Incisions/Wounds: see below Do you feel safe in the home? Yes Kezia Cline APRN.RECORDER GRAVITY PROSPECTING CC: the right leg is tender around the wound PE: There were no vitals taken for this visit. Appearance: well groomed, obese, white male, in no acute distress Cardiac: regular S1, S2, No murmur, No rub Lungs: Clear breath sounds bilaterally without wheeze or dullness Extremities: Edema: bilateral 1+, pitting at smith Sternotomy site: healing, clean, dry and intact, no cellulitis Wound: Location: right svg SV Hale sites: healing, clean, dry and intact, no cellulitis, and slough and eschar Procedures: right svg wound debridement: betadine prep, wound debrided to clean tissue. IMPRESSION & PLAN: Surgeon: Christian Pritchard MD, S/P on 04/09/2023: CABG x3 (RODARTE-LAD / SVG-RAMUS / SVG-RC 2. SVG wound, right right svg site with improving dimensions, no odor, improved slough pt denies fever, chill, nightsweats reports sharp pain intermittently at the wound site and running up to knee seen today in opd with Dr Mckeon - wound care - every other day, wash with soap and water, pack with Vaseline guaze and kerlex and cover with dsd, stop betadine due to surrounding skin irritation - compression socks 30 - 40 wt knee high - Rx sent to pharmacy - gabapentin daily for nerve pain a the svg site - sent to [facility] - improved LE edema, continue bumex as prescribe, elevate legs, FR salt restriction - pt to return in 1 week for wound check or sooner if any concerning changes Wound Culture 05/31/23 Many Staphylococcus aureus Abnormal Few Enterobacter cloacae complex Abnormal Measurements 06/05/2023 3.0 cm x 1.0 cm x 0.5 cm 06/11/2023 3.0 cm x 1.0 cm x 0.5 cm 07/03/2023 3.0 cm x 1.0 xm x 0.0 cm 06/11/23 REFERRAL (RECOMMENDATION): Cardiology Electronically Signed By Kezia Cline APRN.RECORDER GRAVITY PROSPECTING In Department: CARDIOTHORACIC Kezia Cline APRN.RECORDER GRAVITY PROSPECTING documented in this encounterWilson Memorial Hospital11-21-2023 History of Present illness Narrative* Alana Menon RN - 06/25/2023 11:05 AM EST Cardiac Rehab exercise class Cardiac Rehabilitation [facility] Supervising Physician: Marilyn Dove Diagnosis: Hx of cabg (primary encounter diagnosis) Phase: 2 Monitored: yes Session Number: 7 Patient negative for COVID exposure and symptoms. Today s exercise session was comprised of a warm-up, aerobic conditioning phase, aerobic, cool down, and free weights and/or resistance machines. Patient tolerated prescribed exercise workload. Tele -SR-without ectopic beats. Vitals WNL for patient. No chest discomfort. No medication changes. This is a hospital based cardiac rehab program. Patient working towards exercise goals by increasing exercise frequency and/or intensity and/or duration. Patient working towards educational goals by attending education classes or receiving and reviewing educational materials with staff. Patient has verbalized understanding of Nutritional Labels education topic and the relation to disease management. Patient s [facility] Exercise sessions will be scanned into IVDesk once it is completed. These can be viewed by going under the Scanned Documents tab and looking for documents labeled Cardiac Rehabilitation. [facility] Exercise session contains exercise data such as, but not limited to modality, intensity, duration and frequency of exercise, along with vital signs pre, during and post exercise and EKG rhythm strips. Alana Menon RN documented in this encounterWilson Memorial Hospital11-18-2023 Miscellaneous Notes* Telephone Encounter - Celia Velazquez RN - 06/22/2023 9:23 PM EST Images from the original note were not included. We received the following [employer] message: Reschedule appointment Received: Today Dino [facility] Resource Nurse I need to reschedule my Jun 24 appointment Would you have an opening on Jul 02 documented in this encounterWilson Memorial Hospital11-17-2023 History of Present illness Narrative* Adelia Arcos RN - 06/21/2023 11:06 AM EST Cardiac Rehab exercise class Cardiac Rehabilitation [facility] Based Program Supervising Physician: Dr. Dove Diagnosis: Hx of cabg (primary encounter diagnosis) Phase: 2 Monitored: yes Session Number: 6 Patient negative for COVID exposure and symptoms. Today s exercise session was comprised of a warm-up, aerobic conditioning phase, aerobic, cool down, and free weights and/or resistance machines. Patient tolerated prescribed exercise workload. Tele -SR PAC Vitals WNL for patient. No chest discomfort. No medication changes. This is a hospital based cardiac rehab program. Patient working towards exercise goals by increasing exercise frequency and/or intensity and/or duration. Patient working towards educational goals by attending education classes or receiving and reviewing educational materials with staff. Patient has verbalized understanding of Stress 2 education topic and the relation to disease management. Patient s [facility] Exercise sessions will be scanned into IVDesk once it is completed. These can be viewed by going under the Scanned Documents tab and looking for documents labeled Cardiac Rehabilitation. [facility] Exercise session contains exercise data such as, but not limited to modality, intensity, duration and frequency of exercise, along with vital signs pre, during and post exercise and EKG rhythm strips. Adelia Arcos RN documented in this encounterWilson Memorial Hospital11-16-2023 History of Present illness Narrative* Adelia Arcos RN - 06/20/2023 11:09 AM EST Cardiac Rehab exercise class Cardiac Rehabilitation [facility] Based Program Supervising Physician: Dr. Dove Diagnosis: Hx of cabg (primary encounter diagnosis) Phase: 2 Monitored: yes Session Number: 5 Patient negative for COVID exposure and symptoms. Today s exercise session was comprised of a warm-up, aerobic conditioning phase, aerobic, cool down, and free weights and/or resistance machines. Patient tolerated prescribed exercise workload. Tele -SB-SR without ectopic beats. Vitals WNL for patient. No chest discomfort. No medication changes. This is a hospital based cardiac rehab program. Patient working towards exercise goals by increasing exercise frequency and/or intensity and/or duration. Patient working towards educational goals by attending education classes or receiving and reviewing educational materials with staff. Patient has verbalized understanding of Stress 2 education topic and the relation to disease management. Patient s [facility] Exercise sessions will be scanned into IVDesk once it is completed. These can be viewed by going under the Scanned Documents tab and looking for documents labeled Cardiac Rehabilitation. [facility] Exercise session contains exercise data such as, but not limited to modality, intensity, duration and frequency of exercise, along with vital signs pre, during and post exercise and EKG rhythm strips. Adelia Arcos RN documented in this encounterWilson Memorial Hospital11-10-2023 History of Present illness Narrative* Josefa Manning Oracle Database Administrator - 06/14/2023 11:11 AM EST Cardiac Rehab exercise class Cardiac Rehabilitation [facility] Based Program Supervising Physician: Derrell Diagnosis: Hx of cabg (primary encounter diagnosis) Phase: 2 Monitored: yes Session Number: 3 Patient negative for COVID exposure and symptoms. Today s exercise session was comprised of a warm-up, aerobic conditioning phase, aerobic, cool down, and free weights and/or resistance machines. Patient tolerated prescribed exercise workload. Tele SR- without ectopic beats. Vitals WNL for patient. No chest discomfort. No medication changes. This is a hospital based cardiac rehab program. Patient working towards exercise goals by increasing exercise frequency and/or intensity and/or duration. Patient working towards educational goals by attending education classes or receiving and reviewing educational materials with staff. Patient has verbalized understanding of Stress Management education topic and the relation to disease management. Patient s [facility] Exercise sessions will be scanned into IVDesk once it is completed. These can be viewed by going under the Scanned Documents tab and looking for documents labeled Cardiac Rehabilitation. [facility] Exercise session contains exercise data such as, but not limited to modality, intensity, duration and frequency of exercise, along with vital signs pre, during and post exercise and EKG rhythm strips. Josefa Manning Oracle Database Administrator documented in this encounterWilson Memorial Hospital11-09-2023 History of Present illness Narrative* Alana Menon RN - 06/13/2023 10:57 AM EST Cardiac Rehab exercise class Cardiac Rehabilitation [facility] Based Program Supervising Physician: Marilyn Dove Diagnosis: Hx of cabg (primary encounter diagnosis) Phase: 2 Monitored: yes Session Number: 2 Patient negative for COVID exposure and symptoms. Today s exercise session was comprised of a warm-up, aerobic conditioning phase, aerobic, cool down, and free weights and/or resistance machines. Patient tolerated prescribed exercise workload. Tele SB-SR- without ectopic beats. Vitals WNL for patient. No chest discomfort. No medication changes. This is a hospital based cardiac rehab program. Patient working towards exercise goals by increasing exercise frequency and/or intensity and/or duration. Patient working towards educational goals by attending education classes or receiving and reviewing educational materials with staff. Patient has verbalized understanding of Stress Mgmt education topic and the relation to disease management. Patient s [facility] Exercise sessions will be scanned into IVDesk once it is completed. These can be viewed by going under the Scanned Documents tab and looking for documents labeled Cardiac Rehabilitation. [facility] Exercise session contains exercise data such as, but not limited to modality, intensity, duration and frequency of exercise, along with vital signs pre, during and post exercise and EKG rhythm strips. Alana Menon RN documented in this encounterWilson Memorial Hospital11-07-2023 History of Present illness Narrative* Kezia Cline, MARY.RECORDER GRAVITY PROSPECTING - 06/11/2023 12:30 PM EST Images from the original note were not included. [facility] [place] [facility] Department of Cardiovascular Medicine DEPARTMENT OF CARDIAC SURGERY OUTPATIENT VISIT DATE June 11, 2023 OUTPATIENT VISIT TYPE FOLLOW UP Dino Blandon is a 73 year old male who is here for return post op follow up visit. Most recent Cardiac Surgery: Surgeon: Christian Pritchard MD, S/P on 04/09/2023: CABG x3 (RODARTE-LAD / SVG-RAMUS / SVG-RC HPI: svg wound check Allergies: ALLERGIES No Known Allergies Medications: Current Outpatient Medications Medication Sig amLODIPine (NORVASC) 5 mg tablet Take 2 tablets by mouth once daily. blood sugar diagnostic (ACCU-CHEK GUIDE TEST STRIPS) test strip Use as instructed twice daily tamsulosin (FLOMAX) 0.4 mg Take 1 capsule by mouth daily at bedtime. (Patient not taking: Reported on 06/03/2023) acetaminophen (TYLENOL) 325 mg tablet Take 2 tablets by mouth every 6 hours as needed for pain. aspirin 81 mg chewable tablet 1 tablet by ORAL/FEEDING TUBE route once daily. atorvastatin (LIPITOR) 40 mg tablet Take 1 tablet by mouth daily at bedtime. bumetanide (BUMEX) 1 mg tablet Take 1 tablet by mouth once daily. carvedilol (COREG) 12.5 mg tablet Take 1 tablet by mouth twice daily with meals. glimepiride (AMARYL) 1 mg tablet Take 1 tablet by mouth daily with breakfast. Lancets (ACCU-CHEK SOFTCLIX LANCETS) lancets Use as instructed twice daily No current facility-administered medications for this visit. Medications and Allergies have been reviewed. Pain scale :Yes LOCATION: right svg PAIN SCALE: 2 on a scale of 0-10 Appetite: appetite good Sleep: no problems with sleep Incisions/Wounds: see below Do you feel safe in the home? Yes Kezia Cline APRN.RECORDER GRAVITY PROSPECTING CC: the right leg is tender around the wound PE: BP 144/88 Pulse (!) 59 Temp 36.6 C (97.9 F) (Oral) Resp 14 Ht 163.8 cm (5' 4.5) Wt 95.3 kg (210 lb) SpO2 98% BMI 35.49 kg/m Appearance: well groomed, obese, white male, in no acute distress Cardiac: regular S1, S2, No murmur, No rub Lungs: Clear breath sounds bilaterally without wheeze or dullness Extremities: Edema: bilateral 1+, pitting at smith Sternotomy site: healing, clean, dry and intact, no cellulitis Wound: Location: right svg SV Hale sites: healing, clean, dry and intact, no cellulitis, and slough and eschar Procedures: right svg wound debridement: betadine prep, wound debrided to clean tissue. IMPRESSION & PLAN: Surgeon: Christian Pritchard MD, S/P on 04/09/2023: CABG x3 (RODARTE-LAD / SVG-RAMUS / SVG-RC 2. SVG wound, right right svg site with improving dimensions, no odor, improved slough pt denies fever, chill, nightsweats completed course of Doxy wound care - every other day, wash with soap and water, swab with betadine, pack with calcium alginate and cover with dsd improve LE edema, continue bumex as prescribe, elevate legs, FR salt restriction pt to return in 2 weeks for wound check or sooner if any concerning changes Wound Culture 05/31/23 Many Staphylococcus aureus Abnormal Few Enterobacter cloacae complex Abnormal Measurements 06/05/2023 3.0 cm x 1.0 cm x 0.5 cm 06/11/2023 3.0 cm x 1.0 cm x 0.5 cm 06/11/23 REFERRAL (RECOMMENDATION): Cardiology Electronically Signed By Kezia Cline APRN.RECORDER GRAVITY PROSPECTING In Department: CARDIOTHORACIC Kezia Cline APRN.RECORDER GRAVITY PROSPECTING documented in this encounterWilson Memorial Hospital11-01-2023 History of Present illness Narrative* Kezia Cline APRN.KEYUR - 06/05/2023 10:30 AM EDT Images from the original note were not included. [facility] [place] [facility] Department of Cardiovascular Medicine DEPARTMENT OF CARDIAC SURGERY OUTPATIENT VISIT DATE June 05, 2023 OUTPATIENT VISIT TYPE FOLLOW UP Dino Blandon is a 73 year old male who is here for return post op follow up visit. Most recent Cardiac Surgery: Surgeon: Christian Pritchard MD, S/P on 04/09/2023: CABG x3 (RODARTE-LAD / SVG-RAMUS / SVG-RC HPI: svg wound check Allergies: ALLERGIES No Known Allergies Medications: Current Outpatient Medications Medication Sig doxycycline hyclate (VIBRAMYCIN) 100 mg capsule Take 1 capsule by mouth two times a day for 7 days. amLODIPine (NORVASC) 5 mg tablet Take 2 tablets by mouth once daily. blood sugar diagnostic (ACCU-CHEK GUIDE TEST STRIPS) test strip Use as instructed twice daily tamsulosin (FLOMAX) 0.4 mg Take 1 capsule by mouth daily at bedtime. (Patient not taking: Reported on 06/03/2023) acetaminophen (TYLENOL) 325 mg tablet Take 2 tablets by mouth every 6 hours as needed for pain. aspirin 81 mg chewable tablet 1 tablet by ORAL/FEEDING TUBE route once daily. atorvastatin (LIPITOR) 40 mg tablet Take 1 tablet by mouth daily at bedtime. bumetanide (BUMEX) 1 mg tablet Take 1 tablet by mouth once daily. carvedilol (COREG) 12.5 mg tablet Take 1 tablet by mouth twice daily with meals. glimepiride (AMARYL) 1 mg tablet Take 1 tablet by mouth daily with breakfast. Lancets (ACCU-CHEK SOFTCLIX LANCETS) lancets Use as instructed twice daily No current facility-administered medications for this visit. Medications and Allergies have been reviewed. Pain scale :Yes LOCATION: right svg PAIN SCALE: 2 on a scale of 0-10 Appetite: appetite good Sleep: no problems with sleep Incisions/Wounds: see below Do you feel safe in the home? Yes Kezia Cline APRN.RECORDER GRAVITY PROSPECTING CC: the right leg is tender around the wound PE: BP 168/90 Pulse 63 Temp 36.7 C (98 F) (Oral) Resp 14 Ht 163.8 cm (5' 4.5) Wt 95.3 kg (210 lb 3.2 oz) SpO2 99% BMI 35.52 kg/m Appearance: well groomed, obese, white male, in no acute distress Cardiac: regular S1, S2, No murmur, No rub Lungs: Clear breath sounds bilaterally without wheeze or dullness Extremities: Edema: bilateral 1+, pitting at smith Sternotomy site: healing, clean, dry and intact, no cellulitis Wound: Location: right svg SV Hale sites: healing, clean, dry and intact, no cellulitis, and slough and eschar Procedures: right svg wound debridement: betadine prep, wound debrided to clean tissue. IMPRESSION & PLAN: Surgeon: Christian Pritchard MD, S/P on 04/09/2023: CABG x3 (RODARTE-LAD / SVG-RAMUS / SVG-RC 2. SVG wound, right right svg site with improving dimensions, no odor, improved slough pt denies fever, chill, nightsweats on Doxy for + wound culture - see below results wound care - every other day, wash with soap and water, swab with betadine, pack with calcium alginate and cover with dsd improve LE edema, continue bumex as prescribe, elevate legs, FR salt restriction pt to return in one week for wound check in opd. 06/11/23 Wound Culture 05/31/23 Many Staphylococcus aureus Abnormal Few Enterobacter cloacae complex Abnormal Measurements 06/05/2023 3.0 cm x 1.0 cm x 0.5 cm 06/05/2023 REFERRAL (RECOMMENDATION): Cardiology Electronically Signed By Kezia Cline APRN.RECORDER GRAVITY PROSPECTING In Department: CARDIOTHORACIC Kezia Cline APRN.RECORDER GRAVITY PROSPECTING documented in this encounterWilson Memorial Hospital10-30-2023 Instructions* Patient Instructions* Eber Salcido DO - 06/03/2023 10:44 AM EDT Check labs today and return to clinic 4-6 months documented in this encounterWilson Memorial Hospital10-30-2023 History of Present illness Narrative* Eber Salcido DO - 06/03/2023 10:00 AM EDT NEPHROLOGY CLINIC INITIAL VISIT PATIENT NAME: Dino Blandon chief complaint Consultation requested by Dr. Wilson for an opinion regarding SOLIS on CKDIII. My final recommendations will be communicated back to the requesting physician by way of shared Medical record or letter to requesting physician via US mail. ASSESSMENT/PLAN 1.CKD III with solis s/p CABG, bacteremia (ecoli/staphepi) with recurrent UTI and new DM. C/b post opwound and post op urinary retention w/o hydro. Cr peaked at 2.2 and baseline ? 1.5 -on flomax per urology (hasn't taken yet) -amlodipine and bumex, tolerating well - lisinopril was a pre-surgery medicine, he's been advised to go 10mg amlodipine, which is fine, ifalbuminuria we'll eventually switch to lisinopril -advise continue or rather try flomax at least -check cmp and alb/cr today to risk stratify -return in 4-6 months 2.HTN -increasing to 10mg amlodipine (he was still on 5 despite the rx change) -uncontrolled today SUBJECTIVE chief complaint HPI: 73 year old male with CAD, HTN, HLD, DM2, and recurrent UTIs admitted 04/02 for of progressive chest pain. A left heart cath was done showing LM disease 20%, LAD 80%, Cx 100%, Ramus 70% and RCA 90% necessitating 3xCABG on 04/09. Nephrology is consulted for SOLIS, non oliguric, attributed to Bactrimand hemodynamics. He was significantly edematous at the time on consultation and rec. For long termdiuretics Peak cr was 2.2 and most recently was 1.8 which is close to apparent baseline of 1.5 and dc'd on bumex. A1c was found to be 6.9 and was sent out on amaryl. He's obese with bmi of 36. He was thought to have ecoli uti at the time of admission, however was found to be bacteremic requiring Vanc, then remained persistent switched to linezolid. RENAL HX A1c: 6.9 Duration DM Duration HTN: long standing , uncontrolled Urine Imaging 2022Right Kidney: -Renal length: 10.0 cm -Parenchyma: Normal parenchymal echogenicity. Normal parenchymal thickness. -Collecting system: No hydronephrosis. -Calculus: No echogenic, shadowing calculus. -Lesion: Small parapelvic cysts. Left Kidney: -Renal length: 11.5 cm -Parenchyma: Normal parenchymal echogenicity. Normal parenchymal thickness. -Collecting system: No hydronephrosis. -Calculus: No echogenic, shadowing calculus. -Lesion: Small parapelvic cysts. First told of CKD in primary care office, in the last couple years with Dr. Fermin. MEDICATIONS: Current Outpatient Medications Medication Instructions acetaminophen (TYLENOL) 650 mg, ORAL, EVERY 6 HOURS NEEDED amLODIPine (NORVASC) 10 mg, ORAL, DAILY aspirin 81 mg, ORAL/FEEDING TUBE, DAILY atorvastatin (LIPITOR) 40 mg, ORAL, AT BEDTIME blood sugar diagnostic (ACCU-CHEK GUIDE TEST STRIPS) test strip Use as instructed twice daily bumetanide (BUMEX) 1 mg, ORAL, DAILY carvedilol (COREG) 12.5 mg, ORAL, 2 TIMES DAILY W/MEALS doxycycline hyclate (VIBRAMYCIN) 100 mg, ORAL, 2 TIMES DAILY glimepiride (AMARYL) 1 mg, ORAL, DAILY WITH BREAKFAST Lancets (ACCU-CHEK SOFTCLIX LANCETS) lancets Use as instructed twice daily tamsulosin (FLOMAX) 0.4 mg, ORAL, AT BEDTIME Social History Tobacco Use Smoking status: Never Smokeless tobacco: Never Vaping Use Vaping Use: Never used Substance Use Topics Alcohol use: Never Drug use: Never FAMILY HISTORY Problem Relation Age of Onset other (Myocardial infarction) Mother Diabetes Mother other (CABG) Brother PAST SURGICAL HISTORY Procedure Laterality Date CABG (3) VEIN GRAFTS & ARTERIAL GRAFT(S) 04/09/2023 (RODARTE-LAD / SVG-RAMUS / SVG-RC) OBJECTIVE PHYSICAL EXAM: BP: 154/83 Pulse: 58 Intake/Output None GENERAL: no distress LUNGS: Lungs clear to auscultation, Good diaphragmatic excursion CARDIAC: Normal S1 and S2; no rubs, murmurs, or gallops EXTREMITIES:2+ edema DATA: Diagnostic tests reviewed for today's visit: Most recent labs and imaging results. CBC, Coags, BMP, Mg, Phos Liver Function, Amylase, & Lipase ABGs SIGNATURE: Eber Salcido DO DATE: June 03, 2023 TIME: 7:47 AM documented in this encounterWilson Memorial Hospital10-30-2023 Evaluation note* Diagnosis Stage 3 chronic kidney disease, unspecified whether stage 3a or 3b CKD (HCC)- Primary Primary hypertension Unspecified essential hypertension documented in this encounter [facility]10-[facility] History of Present illness Narrative* Kezia Cline, SUPERVISOR STAVE CUTTING.RECORDER GRAVITY PROSPECTING - 05/31/2023 11:30 AM EDT Images from the original note were not included. [facility] [place] [facility] Department of Cardiovascular Medicine DEPARTMENT OF CARDIAC SURGERY OUTPATIENT VISIT DATE May 31, 2023 OUTPATIENT VISIT TYPE FOLLOW UP Dino Blandon is a 73 year old male who is here for return post op follow up visit. Most recent Cardiac Surgery: Surgeon: Christian Pritchard MD, S/P on 04/09/2023: CABG x3 (RODARTE-LAD / SVG-RAMUS / SVG-RC HPI: svg wound check Allergies: ALLERGIES No Known Allergies Medications: Current Outpatient Medications Medication Sig amLODIPine (NORVASC) 5 mg tablet Take 2 tablets by mouth once daily. blood sugar diagnostic (ACCU-CHEK GUIDE TEST STRIPS) test strip Use as instructed twice daily tamsulosin (FLOMAX) 0.4 mg Take 1 capsule by mouth daily at bedtime. acetaminophen (TYLENOL) 325 mg tablet Take 2 tablets by mouth every 6 hours as needed for pain. aspirin 81 mg chewable tablet 1 tablet by ORAL/FEEDING TUBE route once daily. atorvastatin (LIPITOR) 40 mg tablet Take 1 tablet by mouth daily at bedtime. bumetanide (BUMEX) 1 mg tablet Take 1 tablet by mouth once daily. carvedilol (COREG) 12.5 mg tablet Take 1 tablet by mouth twice daily with meals. glimepiride (AMARYL) 1 mg tablet Take 1 tablet by mouth daily with breakfast. Lancets (ACCU-CHEK SOFTCLIX LANCETS) lancets Use as instructed twice daily No current facility-administered medications for this visit. Medications and Allergies have been reviewed. Pain scale :Yes LOCATION: right svg PAIN SCALE: 2 on a scale of 0-10 Appetite: appetite good Sleep: no problems with sleep Incisions/Wounds: see below Do you feel safe in the home? Yes Kezia Cline APRN.RECORDER GRAVITY PROSPECTING CC: i dont really look at this wound, i dont like the sight of it PE: BP 151/85 Pulse 60 Temp 36.7 C (98.1 F) (Oral) Resp 14 Ht 163.8 cm (5' 4.5) Wt 94.3 kg (208 lb) SpO2 99% BMI 35.15 kg/m Appearance: well groomed, obese, white male, in no acute distress Cardiac: regular S1, S2, No murmur, No rub Lungs: Clear breath sounds bilaterally without wheeze or dullness Extremities: Edema: bilateral 1+, pitting at smith Sternotomy site: healing, clean, dry and intact, no cellulitis Wound: Location: right svg SV Hale sites: healing, clean, dry and intact, no cellulitis, and slough and eschar Procedures: right svg wound debridement: betadine prep, wound debrided to clean tissue. Culture sent. IMPRESSION & PLAN: Surgeon: Christian Pritchard MD, S/P on 04/09/2023: CABG x3 (RODARTE-LAD / SVG-RAMUS / SVG-RC 2. SVG wound, right right svg site with slough and eschar , wound debrided to clean tissue , culture sent start Doxy and adjust prn wound culture results wound care - every other day, wash with soap and water, swab with betadine, pack with calcium alginate and cover with dsd improve LE edema, continue bumex as prescribe, elevate legs, FR salt restriction pt to return in one week for wound check in opd. REFERRAL (RECOMMENDATION): Cardiology Electronically Signed By Kezia Cline APRN.RECORDER GRAVITY PROSPECTING In Department: CARDIOTHORACIC Kezia Cline APRN.RECORDER GRAVITY PROSPECTING documented in this encounterWilson Memorial Hospital10-26-2023 Miscellaneous Notes* Telephone Encounter - Kezia Cline APRN.RECORDER GRAVITY PROSPECTING - 05/30/2023 4:00 PM EDT called and spoke to pt re msi wound. right leg mid svg site. pt denies fever, chills, night sweats. pt added on for wound check tomm at 11:30 documented in this encounterWilson Memorial Hospital10-20-2023 Miscellaneous Notes* Telephone Encounter - Karissa Guadalupe RN - 05/24/2023 11:46 AM EDT [facility] Contact Center Inbound Phone Encounter DATE of SERVICE: 05/24/2023 TIME of SERVICE: 11:46 AM Status: Non-urgent, needs attention Service/Provider: Cardiac Surgery Christian Pritchard M.D. Reason for call: Medication Issue/Question Contact information: [facility] Pt called the [facility] phone line. [facility] shows no refill on the glucosestrips or the Amlodipine. Can those be resent to [facility] - they did not tranfer correctly from our pharmacy. Karissa Guadalupe RN Date of Resolution: 05/24/2023 Time of Resolution 11:46 AM documented in this encounterWilson Memorial Hospital10-17-2023 History of Present illness Narrative* DcTiffaniCeliaaltagracia GRACE - 05/21/2023 11:37 AM EDT Verified name and date of . Straight catheterize per order of Rush Pelayo PA-C. 400 mL dark yellow, clear urine return. Celia Irwin LPN * Rush Pelayo PA-C - 05/21/2023 10:57 AM EDT Images from the original note were not included. PENDING SALE TO [facility] NEW PATIENT CLINIC NOTE SERVICE DATE: 05/21/2023 SERVICE TIME: 10:57 AM NAME: Dino Blandon CHIEF COMPLAINT: UTI and Urine Retention HISTORY OF PRESENT ILLNESS: Dino Blandon is a 73 year old male presenting with UTI and urine retention The patient reports he had UTI prior to having is cardiac surgery and then ended with post-op urinary retention with menard catheter And then more UTI's with E Coli. He states he has no concerns with his urine symptoms, he feel he urinates well, with good stream Although some what weaker but not having pain or retention feeling. We discussed the fact he has 351 ml on the PVR and is unaware, we discussed checking with catheretization Straight catheter placed and 400 ml dark urine was collected. Discussed starting Flomax daily for 3months And need for follow -up for recheck of PVR. LUTS: DYSURIA: no URGENCY: No FREQUENCY:5 per day NOCTURIA: 0 per night STRAINING TO VOID: No EMPTIES COMPLETELY: No UTI: 3 past 12 months GROSS HEMATURIA: no UA DIPSTICK POSITIVE ONLY: no Other symptoms: LABS: No results found for: TESTOST No results found for: TESTFREE No results found for: PSA Hematocrit (%) Date Value 05/01/2023 38.4 04/24/2023 32.9 04/23/2023 33.3 No results found for: PSA Creatinine Date Value Ref Range Status 05/15/2023 1.80 (H) 0.73 - 1.22 mg/dL Final 05/08/2023 1.87 (H) 0.73 - 1.22 mg/dL Final 05/01/2023 2.22 (H) 0.73 - 1.22 mg/dL Final 04/24/2023 1.95 (H) 0.73 - 1.22 mg/dL Final MEDICATIONS: amLODIPine (NORVASC) 5 mg tablet Take 2 tablets by mouth once daily. acetaminophen (TYLENOL) 325 mg tablet Take 2 tablets by mouth every 6 hours as needed for pain. amiodarone (PACERONE) 200 mg tablet Take 1 tablet by mouth once daily for 28 days. aspirin 81 mg chewable tablet 1 tablet by ORAL/FEEDING TUBE route once daily. atorvastatin (LIPITOR) 40 mg tablet Take 1 tablet by mouth daily at bedtime. bumetanide (BUMEX) 1 mg tablet Take 1 tablet by mouth once daily. carvedilol (COREG) 12.5 mg tablet Take 1 tablet by mouth twice daily with meals. glimepiride (AMARYL) 1 mg tablet Take 1 tablet by mouth daily with breakfast. blood sugar diagnostic (ACCU-CHEK GUIDE TEST STRIPS) test strip Use as instructed twice daily Lancets (ACCU-CHEK SOFTCLIX LANCETS) lancets Use as instructed twice daily tamsulosin (FLOMAX) 0.4 mg Take 1 capsule by mouth daily at bedtime. PAST MEDICAL HISTORY: PAST MEDICAL HISTORY Diagnosis Date Chronic kidney disease, stage III (moderate) (HCC) Essential hypertension Pneumothorax on right PAST SURGICAL HISTORY: PAST SURGICAL HISTORY Procedure Laterality Date CABG (3) VEIN GRAFTS & ARTERIAL GRAFT(S) 04/09/2023 (RODARTE-LAD / SVG-RAMUS / SVG-RC) FAMILY HISTORY: FAMILY HISTORY Problem Relation Age of Onset other (Myocardial infarction) Mother Diabetes Mother other (CABG) Brother SOCIAL HISTORY: Social Connections: Not on file REVIEW OF SYSTEMS: GENERAL: No fever, chills, weight loss, or fatigue. ENMT: Negative CARDIOVASCULAR:NO CHEST PAIN, PALPITATIONS, ANKLE EDEMA RESPIRATORY: No chronic cough, wheezing, dyspnea, hemoptysis. GENITOURINARY: SEE HPI MUSCULOSKELETAL:NO CHRONIC BACK PAIN, ARTHRITIS, CHRONIC NECK PAIN SKIN: NO VARICOSE VEINS, RASH, ABNORMAL ITCHING HEME/LYMPH/IMMUNE:Negative for prolonged bleeding, bruising easily or swollen nodes NEUROLOGICAL: NO HEADACHES, NUMBNESS, SEIZURES, STROKE DIABETES: yes All other systems reviewed and are negative PHYSICAL EXAMINATION: Blood pressure 180/90, pulse 64, temperature 36.6 C (97.9 F), temperature source Temporal, resp. rate 14, height 163.8 cm (5' 4.5), weight 96.2 kg (212 lb), SpO2 95 %. GENERAL: WNL nutrition, no deformities, healthy appearing NEURO: Awake, alert and oriented x 3 and Normal gait PSYCH: No signs of depression, anxiety, or agitation ENMT (Ear, Nose, Mouth, Throat): No masses, adenopathy, icterus. Thyroid nonpalpable RESP: NL effort, no retractions or purse-lip breathing. CV: No extremity swelling, varices, edema, pallor, erythema GASTROINTESTINAL: Soft, nontender, nondistended, no masses. HERNIAS: None SKIN: No rash, lesions No palpable lymphadenopathy MUSCULOSKELETAL: Extremities normal. No deformities, edema, clubbing or skin discoloration. PROBLEM LIST REVIEW: Yes LABS: Results for orders placed or performed in visit on 05/21/23 UA DIP, URINE (POC) Result Value Ref Range GLUCOSE UA (POCT) Negative Negative mg/dL BILIRUBIN UA (POCT) Negative Negative KETONE UA (POCT) Negative Negative mg/dL SPECIFIC GRAVITY UA (POCT) 1.020 1.005 - 1.030 HEMOGLOBIN/BLOOD UA (POCT) Trace-intact (A) Negative PH UA (POCT) 7.0 4.5 - 8.0 PROTEIN UA (POCT) Negative Negative mg/dL UROBILINOGEN UA (POCT) 0.2 Normal E.U./dL NITRITE UA (POCT) Negative Negative LEUKOCYTES UA (POCT) Trace (A) Negative COLOR UA (POCT) Dark yellow CLARITY UA (POCT) Slightly Cloudy PROCEDURES: PVR: 351 ml Catheter placed an 400 ml urine collected IMAGING: IMPRESSION/PLAN: 73 year old male with 1. Frequent UTI - ICD9: 599.0, ICD10: N39.0 (primary diagnosis) 2. BPH with urinary obstruction - ICD9: 600.01, 599.69, ICD10: N40.1, N13.8 > PVR 351 ml > Sent Flomax Rx and sent patient message regarding follow-up > 3 mo. Appt w/ B. LARS Pelayo MT, PA-C for new Rx Follow-up I spent a total of 30 minutes on the date of the service which included preparing to see the patient, face to face patient care, completing clinical documentation, obtaining and/or reviewing separately obtained history, performing a medically appropriate examination, counseling and educating the pat ient/family/caregiver, ordering medications, tests, or procedures, and care coordination. LARS Chicas MT, PA-C * Celia Irwin LPN - 05/21/2023 10:35 AM EDT Verified name and date of . CC Post Void Residual HPI: Dino Blanodn is a 73 year old male. The patient is here now for an appointment with LARS Chicas MT, PA-COV. Procedure: Explained procedure to patient and verbalizes understanding. Performed a PVR. Patient urinated and instructed to empty bladder as much as possible just prior to having PVR done using bladder ultrasound scanner. Results of scan: 351 mL The patient tolerated the procedure well. Plan: Appointment with Rush. documented in this encounterWilson Memorial Hospital10-02-2023 Miscellaneous Notes* Telephone Encounter - Pascale London - 05/06/2023 1:32 PM EDT Received Cardiopulmonary Rehab referral. 2nd call placed to patient, no answer. Left message with call back number encouraging patient call to schedule appointments. Letter sent requesting response by 05/20. documented in this encounterWilson Memorial Hospital09-27-2023 History of Present illness Narrative* Kezia Cline, MARY.RECORDER GRAVITY PROSPECTING - 05/01/2023 10:30 AM EDT Images from the original note were not included. [facility] [place] [facility] Department of Cardiovascular Medicine DEPARTMENT OF CARDIAC SURGERY OUTPATIENT VISIT DATE May 01, 2023 OUTPATIENT VISIT TYPE POSTOPERATIVE Dino Blandon is a 73 year old male who presents who is here for post operative follow up HPI: Surgeon: Christian Pritchard MD, S/P on 04/09/2023: CABG x3 (RODARTE-LAD / SVG- RAMUS / SVG-RC Discharged on 04/24/23 PAST MEDICAL HISTORY Diagnosis Date Chronic kidney disease, stage III (moderate) (HCC) Essential hypertension Pneumothorax on right PAST SURGICAL HISTORY Procedure Laterality Date CABG (3) VEIN GRAFTS & ARTERIAL GRAFT(S) 04/09/2023 (RODARTE-LAD / SVG-RAMUS / SVG-RC) ALLERGIES No Known Allergies Current Outpatient Medications Medication Sig amLODIPine (NORVASC) 5 mg tablet Take 1 tablet by mouth once daily. acetaminophen (TYLENOL) 325 mg tablet Take 2 tablets by mouth every 6 hours as needed for pain. amiodarone (PACERONE) 200 mg tablet Take 1 tablet by mouth once daily for 28 days. aspirin 81 mg chewable tablet 1 tablet by ORAL/FEEDING TUBE route once daily. atorvastatin (LIPITOR) 40 mg tablet Take 1 tablet by mouth daily at bedtime. bumetanide (BUMEX) 1 mg tablet Take 1 tablet by mouth once daily. carvedilol (COREG) 12.5 mg tablet Take 1 tablet by mouth twice daily with meals. glimepiride (AMARYL) 1 mg tablet Take 1 tablet by mouth daily with breakfast. linezolid (ZYVOX) 600 mg tablet Take 1 tablet by mouth every 12 hours for 17 doses. blood sugar diagnostic (ACCU-CHEK GUIDE TEST STRIPS) test strip Use as instructed twice daily Lancets (ACCU-CHEK SOFTCLIX LANCETS) lancets Use as instructed twice daily No current facility-administered medications for this visit. Chief Complaints: I am doing ok, getting better Discharge Post Operative Course: Pain scale :Yes LOCATION: msi PAIN SCALE: 2 on a scale of 0-10 Appetite: appetite good Activity: Walking at least 5-10 minutes 4 times a day. Elimination: normal, no constipation , urination is normal Sleep: no problems with sleep Mood: normal Incisions/Wounds: Not applicable Review of Systems: HEENT: Negative for fevers since discharge, chills, night sweats, blurry vision, hoarseness, and runny nose Cardiac: Denies significant problems, chest pain, and orthopnea Respiratory: denies dyspnea, cough, asthma, bronchitis Musculoskeletal: No history of joint swelling, joint pain, or loss of range of motion. Neuro: Denies neurological complaints, headaches, dizziness, visual changes, paresthesia, neuropathy, focal weakness , or tremors Physical Exam: BP 165/86 Pulse 68 Temp 36.2 C (97.1 F) (Oral) Resp 14 Ht 163.8 cm (5' 4.5) Wt 97.5 kg (215 lb) SpO2 97% BMI 36.33 kg/m Appearance: well groomed, obese, white male, in no acute distress Neck: No neck vein distention Cardiac: regular S1, S2, No murmur, No rub Lungs: Clear breath sounds bilaterally with decreased air entry at the bases bilaterally Abdomen: soft, non tender, non-distended, obese, Normal bowel sounds Extremities: Edema: bilateral 1+, pitting at smith Sternum: stable, no click Sternotomy site: healing, clean, dry and intact, no cellulitis Wound: NA SV Hale sites: healing, clean, dry and intact, and no cellulitis Procedures: Sutures removed from chest tube sites without difficulty. IMPRESSION & PLAN: Surgeon: Christian Pritchard MD, S/P on 04/09/2023: CABG x3 (RODARTE-LAD / SVG-RAMUS / SVG-RC 04/09/2023: Large Right pneumothorax, s/p pigtail in CVICU 04/10/2023: Recurrence of right PTX; 2nd pigtail in right anterior chest in CVICU CXR May 01, 2023 Image reviewed Final report Lungs and pleura: Stable small bilateral pleural effusions with adjacent atelectasis. There is no pneumothorax. EKG May 01, 2023 Diagnosis: NORMAL SINUS RHYTHM Vent. rate 65 BPM VA interval 174 ms QRS duration 100 ms QT/QTc 420/436 ms P-R-T axes 10 -45 46 Labs May 01, 2023 Latest Reference Range & Units 04/24/23 04:56 05/01/23 10:48 WBC 3.70 - 11.00 k/uL 10.59 10.47 RBC 4.20 - 6.00 m/uL 3.77 (L) 4.23 Hemoglobin 13.0 - 17.0 g/dL 10.8 (L) 12.4 (L) Hematocrit 39.0 - 51.0 % 32.9 (L) 38.4 (L) Platelet Count 150 - 400 k/uL 384 321 (L): Data is abnormally low Latest Reference Range & Units 04/24/23 04:56 05/01/23 10:48 Sodium 136 - 144 mmol/L 137 140 Potassium 3.7 - 5.1 mmol/L 4.3 4.5 Chloride 97 - 105 mmol/L 105 102 CO2 22 - 30 mmol/L 20 (L) 24 BUN 9 - 24 mg/dL 31 (H) 40 (H) Creatinine 0.73 - 1.22 mg/dL 1.95 (H) 2.22 (H) (L): Data is abnormally low (H): Data is abnormally high CAD - S/P CABG x 3. Pt discharged on core measures ASA, Beta sydni and Statin Atrial Fibrillation post op A fib, returned to NSR. d/c on amio taper and BB EKG NSR today HTN - pre op Hx of HTN with home meds amlodipine & lisinopril - Allowing for permissive HTN (SBP 150-170 is ok per nephro), - pt discharged on norvasc, coreg, bumex, - BP stable 140/80 - reviewed at home readings. - SBP 130-150 mmHg - continue to monitor BP and HR at home - recheck CMP in one week at [facility] and if Scr improves may adjust amlodipine prn Acute on CKDIIIa: pre op Baseline Cr ~1.5. Scr peaked at 2.13, Nephro consulted - Renal US unremarkable. Scr 1.95 on day of discharge. 1mg Bumex at time of dc per nephro recs. (hold on K supplementation but may need to be considered at outpatient f/u). Scr today 2.2 , K 4.5 today recheck CMP in one week at [facility]. Summary: Follow up with PCP next week Follow up with order to delivery supervisor in 4-6 weeks. Call C[facility] OPD with any issues, concerns or worsening symptoms. Post op care and discharge orders reviewed with the patient- all questions were answered. Reviewed walking program at home Reviewed diet guidelines for recovery from surgery Return to the clinic prn with signs or symptoms of infection, fevers, SOB, or pleural effusion SBE prophylaxis reviewed Discussed wound care Kezia Cline APRN.KEYUR documented in this encounterWilson Memorial Hospital09-27-2023 History of Present illness Narrative* Celia Curran RT(R) - 05/01/2023 10:10 AM EDT Radiology Service Progress Note PATIENT NAME: Dino Blandon DATE OF SERVICE: May 01, 2023 TIME: 10:33 AM PATIENT IDENTITY VERIFICATION COMPLETED USING TWO (2) IDENTIFIERS: Name and Date of confirmedby patient verbally. FALL SCREENING: Has the patient had 2 falls in the last year or 1 fall with injury or currently using an Ambulatory Assistive Device (Walker, Cane, Wheelchair, Crutches, etc.)? No PATIENT GENDER DATA: Male PATIENT RELEVANT IMPLANT DATA REVIEWED: Not Applicable RADIOLOGY DEPARTMENT: General X-ray: Exam(s) Completed: Chest X-Ray PERIPHERAL IV DATA: Not applicable SIGNED BY: RT Eliz(R) May 01, 2023 10:33 AM documented in this encounterWilson Memorial Hospital09-26-2023 Miscellaneous Notes* Telephone Encounter - Hayden Simmons RN - 04/30/2023 1:30 PM EDT We are calling to check on how you are doing since our last phone call. Are you having any medical concerns we can help you with today? Pt denied medical concerns at this time. Pt confirmed pt has 24-hour nurse resource line for questions or concerns. PD nurse confirmed/verified patient's and full name. All clear. Closing statement given. Hayden Simmons RN documented in this encounterWilson [facility] Miscellaneous Notes* Telephone Encounter - Dixie Castellon RN - 04/25/2023 4:35 PM EDT Warfarin was discontinued 04/15/23 and noted only one dose given. [facility] will disregard referral at this time. Referral has been cancelled. Allie Castellon RN [facility] * Telephone Encounter - Dixie Castellon RN - 04/22/2023 9:40 AM EDT Patient remains inpatient; will continue to monitor for discharge. Allie Castellon RN [facility] * Telephone Encounter - Dixie Castellon RN - 04/19/2023 11:20 AM EDT Patient remains inpatient; will continue to monitor. Allie Castellon RN [facility] * Telephone Encounter - Lavelle (Junior Net Developer)Margot - 04/17/2023 8:48 AM EDT Patient remains inpatient at this time. PAC will continue to monitor for discharge. Margot Valderrama CPhT (Central Service Tech) [facility] * Telephone Encounter - Dixie Castellon RN - 04/16/2023 10:58 AM EDT Patient remains inpatient; will continue to monitor. Allie Castellon RN [facility] * Telephone Encounter - Dixie Castellon RN - 04/15/2023 11:07 AM EDT PAC received a new referral for the patient. Patient will be contacted once discharged home. Allie Castellon RN [facility] documented in this encounterWilson [facility] Hospital09-21-2023 Miscellaneous Notes* Telephone Encounter - Olya Chiang RN - 04/25/2023 12:56 PM EDT 1. Have you noticed any increase in shortness of breath since you left the hospital? -No 2. Have you noticed any increased swelling in your feet , ankles, or stomach? (Skip for vascular pts) -No 3. Have you gained more than 2-3 pounds since discharge? (Skip for vascular & EP pts) -No 4. Have you noticed any change in your incision or wound since you were discharged? (as we want youto be aware of any signs of infection) -No 5. Are you having any increased pain since discharge? If yes: What type of pain and where? (pressure, sharp pain, dull pain, etc.) -No 6. Have you had any unplanned trips to the emergency department or hospital since you were discharged? If yes - why? -No 7. Do you have any questions about your medications? -No 8. Were you able to fill all of the prescribed medications? -Yes 9. Do you have a doctor s appointment scheduled or is someone working on getting you a follow-up appointment? -Yes All clear and closing statement given. PD RN verified patients name and date of . Olya Chiang RN documented in this encounterWilson [facility] Hospital09-16-2023 History of Past illness Narrative* Problem Noted Date Diagnosed Date Resolved Date Hyponatremia 04/20/2023 04/22/2023 Summary 04/15/2023 04/24/2023 Overview: Indication for Surgery: CAD Preop LVEF: 62% Cards: [place] Postop LVEF: Normal RVF: Normal PMH/PSH: poorly controlled HTN, hyperlipidemia, CKD IIIa, New diagnosis of diabetes. 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 He underwent a stress test which showed ischemia in all regions. Ejection fraction was normal. An echocardiogram was done - no valvular disease & normal ejection fraction. A left heart cath was done LM disease 20%, LAD 80%, Cx 100%, Ramus 70% and RCA 90%. Endocrinology recommended starting Januvia and to follow up with PCP. Airway Difficulty: Grade I - Campuzano Pacing Wires: Ventricular: pulled 04/15 Surgeries and Major Events: 04/09/2023: CABG x3 (RODARTE-LAD / SVG-RAMUS / SVG-RC) 04/09/2023: Large Right pneumothorax, s/p pigtail in CVICU 04/10/2023: Recurrence of right PTX; 2nd pigtail in right anterior chest in CVICU A/Plan: -CAD s/p CABG: ASA, BB, statin -Post-op right PTX s/p 2 pleural pigtails. Last pigtail removed 04/16 after clamp trial. Recent CXR from 04/22 noting trace effusions & no PTX. -Leukocytosis: Elevated WBC post-op, normalized at time of discharge. Recent history of UTI - UA suspicious for UTI - Urine cx positive for E. Coli, currently being treated with oral Cipro through 04/28 (Qtc 04/22 430). Outpatient urology f/u scheduled. Despite treatment for UTI, continued to have fevers. Blood cultures x 2 pos for MRSE. ID on consult & pt placed on on IV vanco. Repeat blood cultures x 2 sent on 04/22 NGTD and pt changed from IV vanco to 600mg Linezolid BID for 10 days (to be be completed on 05/02/23). RLE SVG sites concerning for cellulitis - no plans to open for now per Dr. Pritchard, continues to improve. Hold on US of [place] for discharge per ID. -pAfib: Post-op, Episodes on 04/11, 04/12 - again overnight 04/14-. Currently in NSR. Continues on oral amio taper and BB. Reviewed with Dr. Pritchard, will not add AC at this time as pt is maintaining NSR -HPL (Newly diagnosed, LDL 104, statin naive). Added 40mg atorvastatin. Local reassessment for adjustments. -h/o HTN (pre-op on amlodipine & lisinopril). Historically not well controlled. Currently controlled with coreg, amlodipine and Bumex. Allowing for permissive HTN (SBP 150-170 is ok per nephro) -Acute on CKDIIIa: Noted on admission - Baseline Cr ~1.5. Scr peaked at 2.13, Echo done & pericardial effusion ruled out. Nephro consulted - Renal US unremarkable. Started on 1mg Bumex 04/22 for volume control. Follow trend. -Diabetes (new diagnosis with HgBA1C 6.9%). Radha-op exacerbation. Reconsult to endo on 04/23, f/u recs. Outpatient endo requested. -Obesity, class 2: BMI 36. 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 Refer to Endo for consideration of Ozempic owing to concomitant diabetes. -Dispo: from [place], [place]. PT recs home. OPD & Urology scheduled. [facility] Cards & Endo requested. Discharge Planning: Anticipated Discharge Date: 04/24 Barriers to Discharge: No Barriers to Discharge Care Management Discharge Needs: Needs Prior to Discharge: None Obesity, Class III, BMI >= 40 04/15/2023 04/22/2023 PAF (paroxysmal atrial fibrillation) 04/11/2023 04/22/2023 On mechanically assisted ventilation 04/09/2023 04/13/2023 Overview: History: see care coordination note Assessment: see care coordination note Plan: see care coordination note. Stress hyperglycemia 04/09/202304/22/ 023 Overview: History: see care coordination note Assessment: see care coordination note Plan: see care coordination note Hypotension 04/09/2023 04/10/2023 Overview: History: see care coordination note Assessment: see care coordination note Plan: see care coordination note Hypoxemia 04/09/2023 04/22/2023 Angina pectoris 04/02/2023 04/13/2023 documented as of this encounter (statuses as of 04/26/2023) [facility] History of Past illness Narrative* Problem Noted Date Diagnosed Date Resolved Date Hyponatremia 04/20/2023 04/22/2023 Summary 04/15/2023 04/24/2023 Overview: Indication for Surgery: CAD Preop LVEF: 62% Cards: Derrell Postop LVEF: Normal RVF: Normal PMH/PSH: poorly controlled HTN, hyperlipidemia, CKD IIIa, New diagnosis of diabetes. 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 He underwent a stress test which showed ischemia in all regions. Ejection fraction was normal. An echocardiogram was done - no valvular disease & normal ejection fraction. A left heart cath was done LM disease 20%, LAD 80%, Cx 100%, Ramus 70% and RCA 90%. Endocrinology recommended starting Januvia and to follow up with PCP. Airway Difficulty: Grade I - Campuzano Pacing Wires: Ventricular: pulled 04/15 Surgeries and Major Events: 04/09/2023: CABG x3 (RODARTE-LAD / SVG-RAMUS / SVG-RC) 04/09/2023: Large Right pneumothorax, s/p pigtail in CVICU 04/10/2023: Recurrence of right PTX; 2nd pigtail in right anterior chest in CVICU A/Plan: -CAD s/p CABG: ASA, BB, statin -Post-op right PTX s/p 2 pleural pigtails. Last pigtail removed 04/16 after clamp trial. Recent CXR from 04/22 noting trace effusions & no PTX. -Leukocytosis: Elevated WBC post-op, normalized at time of discharge. Recent history of UTI - UA suspicious for UTI - Urine cx positive for E. Coli, currently being treated with oral Cipro through 04/28 (Qtc 04/22 430). Outpatient urology f/u scheduled. Despite treatment for UTI, continued to have fevers. Blood cultures x 2 pos for MRSE. ID on consult & pt placed on on IV vanco. Repeat blood cultures x 2 sent on 04/22 NGTD and pt changed from IV vanco to 600mg Linezolid BID for 10 days (to be be completed on 05/02/23). RLE SVG sites concerning for cellulitis - no plans to open for now per Dr. Pritchard, continues to improve. Hold on US of LE. Guzman for discharge per ID. -pAfib: Post-op, Episodes on 04/11, 04/12 - again overnight 04/14-11. Currently in NSR. Continues on oral amio taper and BB. Reviewed with Dr. Pritchard, will not add AC at this time as pt is maintaining NSR -HPL (Newly diagnosed, LDL 104, statin naive). Added 40mg atorvastatin. Local reassessment for adjustments. -h/o HTN (pre-op on amlodipine & lisinopril). Historically not well controlled. Currently controlled with coreg, amlodipine and Bumex. Allowing for permissive HTN (SBP 150-170 is ok per nephro) -Acute on CKDIIIa: Noted on admission - Baseline Cr ~1.5. Scr peaked at 2.13, Echo done & pericardial effusion ruled out. Nephro consulted - Renal US unremarkable. Started on 1mg Bumex 04/22 for volume control. Follow trend. -Diabetes (new diagnosis with HgBA1C 6.9%). Radha-op exacerbation. Reconsult to endo on 04/23, f/u recs. Outpatient endo requested. -Obesity, class 2: BMI 36. 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 Refer to Endo for consideration of Ozempic owing to concomitant diabetes. -Dispo: from [place], [place]. PT recs home. OPD & Urology scheduled. [facility] Cards & Endo requested. Discharge Planning: Anticipated Discharge Date: 04/24 Barriers to Discharge: No Barriers to Discharge Care Management Discharge Needs: Needs Prior to Discharge: None Obesity, Class III, BMI >= 40 04/15/2023 04/22/2023 PAF (paroxysmal atrial fibrillation) 04/11/2023 04/22/2023 On mechanically assisted ventilation 04/09/2023 04/13/2023 Overview: History: see care coordination note Assessment: see care coordination note Plan: see care coordination note. Stress hyperglycemia 04/09/2023 023 Overview: History: see care coordination note Assessment: see care coordination note Plan: see care coordination note Hypotension 04/09/2023 04/10/2023 Overview: History: see care coordination note Assessment: see care coordination note Plan: see care coordination note Hypoxemia 04/09/2023 04/22/2023 Angina pectoris 04/02/2023 04/13/2023 documented as of this encounter (statuses as of 05/01/2023) [facility] of Past illness Narrative* Problem Noted Date Diagnosed Date Resolved Date Hyponatremia 04/20/2023 04/22/2023 Summary 04/15/2023 04/24/2023 Overview: Indication for Surgery: CAD Preop LVEF: 62% Cards: Derrell Postop LVEF: Normal RVF: Normal PMH/PSH: poorly controlled HTN, hyperlipidemia, CKD IIIa, New diagnosis of diabetes. 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 He underwent a stress test which showed ischemia in all regions. Ejection fraction was normal. An echocardiogram was done - no valvular disease & normal ejection fraction. A left heart cath was done LM disease 20%, LAD 80%, Cx 100%, Ramus 70% and RCA 90%. Endocrinology recommended starting Januvia and to follow up with PCP. Airway Difficulty: Grade I - Campuzano Pacing Wires: Ventricular: pulled 04/15 Surgeries and Major Events: 04/09/2023: CABG x3 (RODARTE-LAD / SVG-RAMUS / SVG-RC) 04/09/2023: Large Right pneumothorax, s/p pigtail in CVICU 04/10/2023: Recurrence of right PTX; 2nd pigtail in right anterior chest in CVICU A/Plan: -CAD s/p CABG: ASA, BB, statin -Post-op right PTX s/p 2 pleural pigtails. Last pigtail removed 04/16 after clamp trial. Recent CXR from 04/22 noting trace effusions & no PTX. -Leukocytosis: Elevated WBC post-op, normalized at time of discharge. Recent history of UTI - UA suspicious for UTI - Urine cx positive for E. Coli, currently being treated with oral Cipro through 04/28 (Qtc 04/22 430). Outpatient urology f/u scheduled. Despite treatment for UTI, continued to have fevers. Blood cultures x 2 pos for MRSE. ID on consult & pt placed on on IV vanco. Repeat blood cultures x 2 sent on 04/22 NGTD and pt changed from IV vanco to 600mg Linezolid BID for 10 days (to be be completed on 05/02/23). RLE SVG sites concerning for cellulitis - no plans to open for now per Dr. Pritchard, continues to improve. Hold on US of LE. Ok for discharge per ID. -pAfib: Post-op, Episodes on 04/11, 04/12 - again overnight 04/14-. Currently in NSR. Continues on oral amio taper and BB. Reviewed with Dr. Pritchard, will not add AC at this time as pt is maintaining NSR -HPL (Newly diagnosed, LDL 104, statin naive). Added 40mg atorvastatin. Local reassessment for adjustments. -h/o HTN (pre-op on amlodipine & lisinopril). Historically not well controlled. Currently controlled with coreg, amlodipine and Bumex. Allowing for permissive HTN (SBP 150-170 is ok per nephro) -Acute on CKDIIIa: Noted on admission - Baseline Cr ~1.5. Scr peaked at 2.13, Echo done & pericardial effusion ruled out. Nephro consulted - Renal US unremarkable. Started on 1mg Bumex 04/22 for volume control. Follow trend. -Diabetes (new diagnosis with HgBA1C 6.9%). Radha-op exacerbation. Reconsult to endo on 04/23, f/u recs. Outpatient endo requested. -Obesity, class 2: BMI 36. 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 Refer to Endo for consideration of Ozempic owing to concomitant diabetes. -Dispo: from [place], [place]. PT recs home. OPD & Urology scheduled. [facility] Cards & Endo requested. Discharge Planning: Anticipated Discharge Date: 04/24 Barriers to Discharge: No Barriers to Discharge Care Management Discharge Needs: Needs Prior to Discharge: None Obesity, Class III, BMI >= 40 04/15/2023 04/22/2023 PAF (paroxysmal atrial fibrillation) 04/11/2023 04/22/2023 On mechanically assisted ventilation 04/09/2023 04/13/2023 Overview: History: see care coordination note Assessment: see care coordination note Plan: see care coordination note. Stress hyperglycemia 04/09/202304/22/2 023 Overview: History: see care coordination note Assessment: see care coordination note Plan: see care coordination note Hypotension 04/09/2023 04/10/2023 Overview: History: see care coordination note Assessment: see care coordination note Plan: see care coordination note Hypoxemia 04/09/2023 04/22/2023 Angina pectoris 04/02/2023 04/13/2023 documented as of this encounter (statuses as of 05/02/2023) [facility] History of Past illness Narrative* Problem Noted Date Diagnosed Date Resolved Date Hyponatremia 04/20/2023 04/22/2023 Summary 04/15/2023 04/24/2023 Overview: Indication for Surgery: CAD Preop LVEF: 62% Cards: Derrell Postop LVEF: Normal RVF: Normal PMH/PSH: poorly controlled HTN, hyperlipidemia, CKD IIIa, New diagnosis of diabetes. 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 He underwent a stress test which showed ischemia in all regions. Ejection fraction was normal. An echocardiogram was done - no valvular disease & normal ejection fraction. A left heart cath was done LM disease 20%, LAD 80%, Cx 100%, Ramus 70% and RCA 90%. Endocrinology recommended starting Januvia and to follow up with PCP. Airway Difficulty: Grade I - Campuzano Pacing Wires: Ventricular: pulled 04/15 Surgeries and Major Events: 04/09/2023: CABG x3 (RODARTE-LAD / SVG-RAMUS / SVG-RC) 04/09/2023: Large Right pneumothorax, s/p pigtail in CVICU 04/10/2023: Recurrence of right PTX; 2nd pigtail in right anterior chest in CVICU A/Plan: -CAD s/p CABG: ASA, BB, statin -Post-op right PTX s/p 2 pleural pigtails. Last pigtail removed 04/16 after clamp trial. Recent CXR from 04/22 noting trace effusions & no PTX. -Leukocytosis: Elevated WBC post-op, normalized at time of discharge. Recent history of UTI - UA suspicious for UTI - Urine cx positive for E. Coli, currently being treated with oral Cipro through 04/28 (Qtc 04/22 430). Outpatient urology f/u scheduled. Despite treatment for UTI, continued to have fevers. Blood cultures x 2 pos for MRSE. ID on consult & pt placed on on IV vanco. Repeat blood cultures x 2 sent on 04/22 NGTD and pt changed from IV vanco to 600mg Linezolid BID for 10 days (to be be completed on 05/02/23). RLE SVG sites concerning for cellulitis - no plans to open for now per Dr. Pritchard, continues to improve. Hold on US of LE. Ok for discharge per ID. -pAfib: Post-op, Episodes on 04/11, 04/12 - again overnight 04/14-. Currently in NSR. Continues on oral amio taper and BB. Reviewed with Dr. Pritchard, will not add AC at this time as pt is maintaining NSR -HPL (Newly diagnosed, LDL 104, statin naive). Added 40mg atorvastatin. Local reassessment for adjustments. -h/o HTN (pre-op on amlodipine & lisinopril). Historically not well controlled. Currently controlled with coreg, amlodipine and Bumex. Allowing for permissive HTN (SBP 150-170 is ok per nephro) -Acute on CKDIIIa: Noted on admission - Baseline Cr ~1.5. Scr peaked at 2.13, Echo done & pericardial effusion ruled out. Nephro consulted - Renal US unremarkable. Started on 1mg Bumex 04/22 for volume control. Follow trend. -Diabetes (new diagnosis with HgBA1C 6.9%). Radha-op exacerbation. Reconsult to endo on 04/23, f/u recs. Outpatient endo requested. -Obesity, class 2: BMI 36. 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 Refer to Endo for consideration of Ozempic owing to concomitant diabetes. -Dispo: from [place], [place]. PT recs home. OPD & Urology scheduled. [facility] Cards & Endo requested. Discharge Planning: Anticipated Discharge Date: 04/24 Barriers to Discharge: No Barriers to Discharge Care Management Discharge Needs: Needs Prior to Discharge: None Obesity, Class III, BMI >= 40 04/15/2023 04/22/2023 PAF (paroxysmal atrial fibrillation) 04/11/2023 04/22/2023 On mechanically assisted ventilation 04/09/2023 04/13/2023 Overview: History: see care coordination note Assessment: see care coordination note Plan: see care coordination note. Stress hyperglycemia 04/09/2023 023 Overview: History: see care coordination note Assessment: see care coordination note Plan: see care coordination note Hypotension 04/09/2023 04/10/2023 Overview: History: see care coordination note Assessment: see care coordination note Plan: see care coordination note Hypoxemia 04/09/2023 04/22/2023 Angina pectoris 04/02/2023 04/13/2023 documented as of this encounter (statuses as of 05/03/2023) [facility] History of Past illness Narrative* Problem Noted Date Diagnosed Date Resolved Date Hyponatremia 04/20/2023 04/22/2023 Summary 04/15/2023 04/24/2023 Overview: Indication for Surgery: CAD Preop LVEF: 62% Cards: Derrell Postop LVEF: Normal RVF: Normal PMH/PSH: poorly controlled HTN, hyperlipidemia, CKD IIIa, New diagnosis of diabetes. 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 He underwent a stress test which showed ischemia in all regions. Ejection fraction was normal. An echocardiogram was done - no valvular disease & normal ejection fraction. A left heart cath was done LM disease 20%, LAD 80%, Cx 100%, Ramus 70% and RCA 90%. Endocrinology recommended starting Januvia and to follow up with PCP. Airway Difficulty: Grade I - Campuzano Pacing Wires: Ventricular: pulled 04/15 Surgeries and Major Events: 04/09/2023: CABG x3 (RODARTE-LAD / SVG-RAMUS / SVG-RC) 04/09/2023: Large Right pneumothorax, s/p pigtail in CVICU 04/10/2023: Recurrence of right PTX; 2nd pigtail in right anterior chest in CVICU A/Plan: -CAD s/p CABG: ASA, BB, statin -Post-op right PTX s/p 2 pleural pigtails. Last pigtail removed 04/16 after clamp trial. Recent CXR from 04/22 noting trace effusions & no PTX. -Leukocytosis: Elevated WBC post-op, normalized at time of discharge. Recent history of UTI - UA suspicious for UTI - Urine cx positive for E. Coli, currently being treated with oral Cipro through 04/28 (Qtc 04/22 430). Outpatient urology f/u scheduled. Despite treatment for UTI, continued to have fevers. Blood cultures x 2 pos for MRSE. ID on consult & pt placed on on IV vanco. Repeat blood cultures x 2 sent on 04/22 NGTD and pt changed from IV vanco to 600mg Linezolid BID for 10 days (to be be completed on 05/02/23). RLE SVG sites concerning for cellulitis - no plans to open for now per Dr. Pritchard, continues to improve. Hold on US of LE. Ok for discharge per ID. -pAfib: Post-op, Episodes on 04/11, 04/12 - again overnight 04/14-. Currently in NSR. Continues on oral amio taper and BB. Reviewed with Dr. Pritchard, will not add AC at this time as pt is maintaining NSR -HPL (Newly diagnosed, LDL 104, statin naive). Added 40mg atorvastatin. Local reassessment for adjustments. -h/o HTN (pre-op on amlodipine & lisinopril). Historically not well controlled. Currently controlled with coreg, amlodipine and Bumex. Allowing for permissive HTN (SBP 150-170 is ok per nephro) -Acute on CKDIIIa: Noted on admission - Baseline Cr ~1.5. Scr peaked at 2.13, Echo done & pericardial effusion ruled out. Nephro consulted - Renal US unremarkable. Started on 1mg Bumex 04/22 for volume control. Follow trend. -Diabetes (new diagnosis with HgBA1C 6.9%). Radha-op exacerbation. Reconsult to endo on 04/23, f/u recs. Outpatient endo requested. -Obesity, class 2: BMI 36. 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 Refer to Endo for consideration of Ozempic owing to concomitant diabetes. -Dispo: from [place], [place]. PT recs home. OPD & Urology scheduled. [facility] Cards & Endo requested. Discharge Planning: Anticipated Discharge Date: 04/24 Barriers to Discharge: No Barriers to Discharge Care Management Discharge Needs: Needs Prior to Discharge: None Obesity, Class III, BMI >= 40 04/15/2023 04/22/2023 PAF (paroxysmal atrial fibrillation) 04/11/2023 04/22/2023 On mechanically assisted ventilation 04/09/2023 04/13/2023 Overview: History: see care coordination note Assessment: see care coordination note Plan: see care coordination note. Stress hyperglycemia 04/09/2023 023 Overview: History: see care coordination note Assessment: see care coordination note Plan: see care coordination note Hypotension 04/09/2023 04/10/2023 Overview: History: see care coordination note Assessment: see care coordination note Plan: see care coordination note Hypoxemia 04/09/2023 04/22/2023 Angina pectoris 04/02/2023 04/13/2023 documented as of this encounter (statuses as of 05/07/2023) [facility] History of Past illness Narrative* Problem Noted Date Diagnosed Date Resolved Date Hyponatremia 04/20/2023 04/22/2023 Summary 04/15/2023 04/24/2023 Overview: Indication for Surgery: CAD Preop LVEF: 62% Edvin: Derrell Postop LVEF: Normal RVF: Normal PMH/PSH: poorly controlled HTN, hyperlipidemia, CKD IIIa, New diagnosis of diabetes. 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 He underwent a stress test which showed ischemia in all regions. Ejection fraction was normal. An echocardiogram was done - no valvular disease & normal ejection fraction. A left heart cath was done LM disease 20%, LAD 80%, Cx 100%, Ramus 70% and RCA 90%. Endocrinology recommended starting Januvia and to follow up with PCP. Airway Difficulty: Grade I - Campuzano Pacing Wires: Ventricular: pulled 04/15 Surgeries and Major Events: 04/09/2023: CABG x3 (RODARTE-LAD / SVG-RAMUS / SVG-RC) 04/09/2023: Large Right pneumothorax, s/p pigtail in CVICU 04/10/2023: Recurrence of right PTX; 2nd pigtail in right anterior chest in CVICU A/Plan: -CAD s/p CABG: ASA, BB, statin -Post-op right PTX s/p 2 pleural pigtails. Last pigtail removed 04/16 after clamp trial. Recent CXR from 04/22 noting trace effusions & no PTX. -Leukocytosis: Elevated WBC post-op, normalized at time of discharge. Recent history of UTI - UA suspicious for UTI - Urine cx positive for E. Coli, currently being treated with oral Cipro through 04/28 (Qtc 04/22 430). Outpatient urology f/u scheduled. Despite treatment for UTI, continued to have fevers. Blood cultures x 2 pos for MRSE. ID on consult & pt placed on on IV vanco. Repeat blood cultures x 2 sent on 04/22 NGTD and pt changed from IV vanco to 600mg Linezolid BID for 10 days (to be be completed on 05/02/23). RLE SVG sites concerning for cellulitis - no plans to open for now per Dr. Pritchard, continues to improve. Hold on US of LE. Guzman for discharge per ID. -pAfib: Post-op, Episodes on 04/11, 04/12 - again overnight 04/14-. Currently in NSR. Continues on oral amio taper and BB. Reviewed with Dr. Pritchard, will not add AC at this time as pt is maintaining NSR -HPL (Newly diagnosed, LDL 104, statin naive). Added 40mg atorvastatin. Local reassessment for adjustments. -h/o HTN (pre-op on amlodipine & lisinopril). Historically not well controlled. Currently controlled with coreg, amlodipine and Bumex. Allowing for permissive HTN (SBP 150-170 is ok per nephro) -Acute on CKDIIIa: Noted on admission - Baseline Cr ~1.5. Scr peaked at 2.13, Echo done & pericardial effusion ruled out. Nephro consulted - Renal US unremarkable. Started on 1mg Bumex 04/22 for volume control. Follow trend. -Diabetes (new diagnosis with HgBA1C 6.9%). Radha-op exacerbation. Reconsult to endo on 04/23, f/u recs. Outpatient endo requested. -Obesity, class 2: BMI 36. 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 Refer to Endo for consideration of Ozempic owing to concomitant diabetes. -Dispo: from [place], [place]. PT recs home. OPD & Urology scheduled. [facility] Cards & Endo requested. Discharge Planning: Anticipated Discharge Date: 04/24 Barriers to Discharge: No Barriers to Discharge Care Management Discharge Needs: Needs Prior to Discharge: None Obesity, Class III, BMI >= 40 04/15/2023 04/22/2023 PAF (paroxysmal atrial fibrillation) 04/11/2023 04/22/2023 On mechanically assisted ventilation 04/09/2023 04/13/2023 Overview: History: see care coordination note Assessment: see care coordination note Plan: see care coordination note. Stress hyperglycemia 04/09/2023 023 Overview: History: see care coordination note Assessment: see care coordination note Plan: see care coordination note Hypotension 04/09/2023 04/10/2023 Overview: History: see care coordination note Assessment: see care coordination note Plan: see care coordination note Hypoxemia 04/09/2023 04/22/2023 Angina pectoris 04/02/2023 04/13/2023 documented as of this encounter (statuses as of 05/22/2023) [facility]09-16-2023 History of Past illness Narrative* Problem Noted Date Diagnosed Date Resolved Date Hyponatremia 04/20/2023 04/22/2023 Summary 04/15/2023 04/24/2023 Overview: Indication for Surgery: CAD Preop LVEF: 62% Edvin: Derrell Postop LVEF: Normal RVF: Normal PMH/PSH: poorly controlled HTN, hyperlipidemia, CKD IIIa, New diagnosis of diabetes. 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 He underwent a stress test which showed ischemia in all regions. Ejection fraction was normal. An echocardiogram was done - no valvular disease & normal ejection fraction. A left heart cath was done LM disease 20%, LAD 80%, Cx 100%, Ramus 70% and RCA 90%. Endocrinology recommended starting Januvia and to follow up with PCP. Airway Difficulty: Grade I - Campuzano Pacing Wires: Ventricular: pulled 04/15 Surgeries and Major Events: 04/09/2023: CABG x3 (RODARTE-LAD / SVG-RAMUS / SVG-RC) 04/09/2023: Large Right pneumothorax, s/p pigtail in CVICU 04/10/2023: Recurrence of right PTX; 2nd pigtail in right anterior chest in CVICU A/Plan: -CAD s/p CABG: ASA, BB, statin -Post-op right PTX s/p 2 pleural pigtails. Last pigtail removed 04/16 after clamp trial. Recent CXR from 04/22 noting trace effusions & no PTX. -Leukocytosis: Elevated WBC post-op, normalized at time of discharge. Recent history of UTI - UA suspicious for UTI - Urine cx positive for E. Coli, currently being treated with oral Cipro through 04/28 (Qtc 04/22 430). Outpatient urology f/u scheduled. Despite treatment for UTI, continued to have fevers. Blood cultures x 2 pos for MRSE. ID on consult & pt placed on on IV vanco. Repeat blood cultures x 2 sent on 04/22 NGTD and pt changed from IV vanco to 600mg Linezolid BID for 10 days (to be be completed on 05/02/23). RLE SVG sites concerning for cellulitis - no plans to open for now per Dr. Pritchard, continues to improve. Hold on US of LE. Ok for discharge per ID. -pAfib: Post-op, Episodes on 04/11, 04/12 - again overnight 04/14-. Currently in NSR. Continues on oral amio taper and BB. Reviewed with Dr. Pritchard, will not add AC at this time as pt is maintaining NSR -HPL (Newly diagnosed, LDL 104, statin naive). Added 40mg atorvastatin. Local reassessment for adjustments. -h/o HTN (pre-op on amlodipine & lisinopril). Historically not well controlled. Currently controlled with coreg, amlodipine and Bumex. Allowing for permissive HTN (SBP 150-170 is ok per nephro) -Acute on CKDIIIa: Noted on admission - Baseline Cr ~1.5. Scr peaked at 2.13, Echo done & pericardial effusion ruled out. Nephro consulted - Renal US unremarkable. Started on 1mg Bumex 04/22 for volume control. Follow trend. -Diabetes (new diagnosis with HgBA1C 6.9%). Radha-op exacerbation. Reconsult to endo on 04/23, f/u recs. Outpatient endo requested. -Obesity, class 2: BMI 36. 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 Refer to Endo for consideration of Ozempic owing to concomitant diabetes. -Dispo: from [place], [place]. PT recs home. OPD & Urology scheduled. [facility] Cards & Endo requested. Discharge Planning: Anticipated Discharge Date: 04/24 Barriers to Discharge: No Barriers to Discharge Care Management Discharge Needs: Needs Prior to Discharge: None Obesity, Class III, BMI >= 40 04/15/2023 04/22/2023 PAF (paroxysmal atrial fibrillation) 04/11/2023 04/22/2023 On mechanically assisted ventilation 04/09/2023 04/13/2023 Overview: History: see care coordination note Assessment: see care coordination note Plan: see care coordination note. Stress hyperglycemia 04/09/2023 023 Overview: History: see care coordination note Assessment: see care coordination note Plan: see care coordination note Hypotension 04/09/2023 04/10/2023 Overview: History: see care coordination note Assessment: see care coordination note Plan: see care coordination note Hypoxemia 04/09/2023 04/22/2023 Angina pectoris 04/02/2023 04/13/2023 documented as of this encounter (statuses as of 05/24/2023) [facility]09-16-2023 History of Past illness Narrative* Problem Noted Date Diagnosed Date Resolved Date Hyponatremia 04/20/2023 04/22/2023 Summary 04/15/2023 04/24/2023 Overview: Indication for Surgery: CAD Preop LVEF: 62% Edvin: Derrell Postop LVEF: Normal RVF: Normal PMH/PSH: poorly controlled HTN, hyperlipidemia, CKD IIIa, New diagnosis of diabetes. 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 He underwent a stress test which showed ischemia in all regions. Ejection fraction was normal. An echocardiogram was done - no valvular disease & normal ejection fraction. A left heart cath was done LM disease 20%, LAD 80%, Cx 100%, Ramus 70% and RCA 90%. Endocrinology recommended starting Januvia and to follow up with PCP. Airway Difficulty: Grade I - Campuzano Pacing Wires: Ventricular: pulled 04/15 Surgeries and Major Events: 04/09/2023: CABG x3 (RODARTE-LAD / SVG-RAMUS / SVG-RC) 04/09/2023: Large Right pneumothorax, s/p pigtail in CVICU 04/10/2023: Recurrence of right PTX; 2nd pigtail in right anterior chest in CVICU A/Plan: -CAD s/p CABG: ASA, BB, statin -Post-op right PTX s/p 2 pleural pigtails. Last pigtail removed 04/16 after clamp trial. Recent CXR from 04/22 noting trace effusions & no PTX. -Leukocytosis: Elevated WBC post-op, normalized at time of discharge. Recent history of UTI - UA suspicious for UTI - Urine cx positive for E. Coli, currently being treated with oral Cipro through 04/28 (Qtc 04/22 430). Outpatient urology f/u scheduled. Despite treatment for UTI, continued to have fevers. Blood cultures x 2 pos for MRSE. ID on consult & pt placed on on IV vanco. Repeat blood cultures x 2 sent on 04/22 NGTD and pt changed from IV vanco to 600mg Linezolid BID for 10 days (to be be completed on 05/02/23). RLE SVG sites concerning for cellulitis - no plans to open for now per Dr. Pritchard, continues to improve. Hold on US of LE. Ok for discharge per ID. -pAfib: Post-op, Episodes on 04/11, 04/12 - again overnight 04/14-. Currently in NSR. Continues on oral amio taper and BB. Reviewed with Dr. Pritchard, will not add AC at this time as pt is maintaining NSR -HPL (Newly diagnosed, LDL 104, statin naive). Added 40mg atorvastatin. Local reassessment for adjustments. -h/o HTN (pre-op on amlodipine & lisinopril). Historically not well controlled. Currently controlled with coreg, amlodipine and Bumex. Allowing for permissive HTN (SBP 150-170 is ok per nephro) -Acute on CKDIIIa: Noted on admission - Baseline Cr ~1.5. Scr peaked at 2.13, Echo done & pericardial effusion ruled out. Nephro consulted - Renal US unremarkable. Started on 1mg Bumex 04/22 for volume control. Follow trend. -Diabetes (new diagnosis with HgBA1C 6.9%). Radha-op exacerbation. Reconsult to endo on 04/23, f/u recs. Outpatient endo requested. -Obesity, class 2: BMI 36. 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 Refer to Endo for consideration of Ozempic owing to concomitant diabetes. -Dispo: from [place], [place]. PT recs home. OPD & Urology scheduled. [facility] Cards & Endo requested. Discharge Planning: Anticipated Discharge Date: 04/24 Barriers to Discharge: No Barriers to Discharge Care Management Discharge Needs: Needs Prior to Discharge: None Obesity, Class III, BMI >= 40 04/15/2023 04/22/2023 PAF (paroxysmal atrial fibrillation) 04/11/2023 04/22/2023 On mechanically assisted ventilation 04/09/2023 04/13/2023 Overview: History: see care coordination note Assessment: see care coordination note Plan: see care coordination note. Stress hyperglycemia 04/09/2023 023 Overview: History: see care coordination note Assessment: see care coordination note Plan: see care coordination note Hypotension 04/09/2023 04/10/2023 Overview: History: see care coordination note Assessment: see care coordination note Plan: see care coordination note Hypoxemia 04/09/2023 04/22/2023 Angina pectoris 04/02/2023 04/13/2023 documented as of this encounter (statuses as of 05/31/2023) [facility]09-16-2023 History of Past illness Narrative* Problem Noted Date Diagnosed Date Resolved Date Hyponatremia 04/20/2023 04/22/2023 Summary 04/15/2023 04/24/2023 Overview: Indication for Surgery: CAD Preop LVEF: 62% Cards: Derrell Postop LVEF: Normal RVF: Normal PMH/PSH: poorly controlled HTN, hyperlipidemia, CKD IIIa, New diagnosis of diabetes. 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 He underwent a stress test which showed ischemia in all regions. Ejection fraction was normal. An echocardiogram was done - no valvular disease & normal ejection fraction. A left heart cath was done LM disease 20%, LAD 80%, Cx 100%, Ramus 70% and RCA 90%. Endocrinology recommended starting Januvia and to follow up with PCP. Airway Difficulty: Grade I - Campuzano Pacing Wires: Ventricular: pulled 04/15 Surgeries and Major Events: 04/09/2023: CABG x3 (RODARTE-LAD / SVG-RAMUS / SVG-RC) 04/09/2023: Large Right pneumothorax, s/p pigtail in CVICU 04/10/2023: Recurrence of right PTX; 2nd pigtail in right anterior chest in CVICU A/Plan: -CAD s/p CABG: ASA, BB, statin -Post-op right PTX s/p 2 pleural pigtails. Last pigtail removed 04/16 after clamp trial. Recent CXR from 04/22 noting trace effusions & no PTX. -Leukocytosis: Elevated WBC post-op, normalized at time of discharge. Recent history of UTI - UA suspicious for UTI - Urine cx positive for E. Coli, currently being treated with oral Cipro through 04/28 (Qtc 04/22 430). Outpatient urology f/u scheduled. Despite treatment for UTI, continued to have fevers. Blood cultures x 2 pos for MRSE. ID on consult & pt placed on on IV vanco. Repeat blood cultures x 2 sent on 04/22 NGTD and pt changed from IV vanco to 600mg Linezolid BID for 10 days (to be be completed on 05/02/23). RLE SVG sites concerning for cellulitis - no plans to open for now per Dr. Pritchard, continues to improve. Hold on US of LE. Guzman for discharge per ID. -pAfib: Post-op, Episodes on 04/11, 04/12 - again overnight 04/14-. Currently in NSR. Continues on oral amio taper and BB. Reviewed with Dr. Pritchard, will not add AC at this time as pt is maintaining NSR -HPL (Newly diagnosed, LDL 104, statin naive). Added 40mg atorvastatin. Local reassessment for adjustments. -h/o HTN (pre-op on amlodipine & lisinopril). Historically not well controlled. Currently controlled with coreg, amlodipine and Bumex. Allowing for permissive HTN (SBP 150-170 is ok per nephro) -Acute on CKDIIIa: Noted on admission - Baseline Cr ~1.5. Scr peaked at 2.13, Echo done & pericardial effusion ruled out. Nephro consulted - Renal US unremarkable. Started on 1mg Bumex 04/22 for volume control. Follow trend. -Diabetes (new diagnosis with HgBA1C 6.9%). Radha-op exacerbation. Reconsult to endo on 04/23, f/u recs. Outpatient endo requested. -Obesity, class 2: BMI 36. 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 Refer to Endo for consideration of Ozempic owing to concomitant diabetes. -Dispo: from [place], [place]. PT recs home. OPD & Urology scheduled. [facility] Cards & Endo requested. Discharge Planning: Anticipated Discharge Date: 04/24 Barriers to Discharge: No Barriers to Discharge Care Management Discharge Needs: Needs Prior to Discharge: None Obesity, Class III, BMI >= 40 04/15/2023 04/22/2023 PAF (paroxysmal atrial fibrillation) 04/11/2023 04/22/2023 On mechanically assisted ventilation 04/09/2023 04/13/2023 Overview: History: see care coordination note Assessment: see care coordination note Plan: see care coordination note. Stress hyperglycemia 04/09/2023 023 Overview: History: see care coordination note Assessment: see care coordination note Plan: see care coordination note Hypotension 04/09/2023 04/10/2023 Overview: History: see care coordination note Assessment: see care coordination note Plan: see care coordination note Hypoxemia 04/09/2023 04/22/2023 Angina pectoris 04/02/2023 04/13/2023 documented as of this encounter (statuses as of 05/31/2023) [facility]09-16-2023 History of Past illness Narrative* Problem Noted Date Diagnosed Date Resolved Date Hyponatremia 04/20/2023 04/22/2023 Summary 04/15/2023 04/24/2023 Overview: Indication for Surgery: CAD Preop LVEF: 62% Cards: Derrell Postop LVEF: Normal RVF: Normal PMH/PSH: poorly controlled HTN, hyperlipidemia, CKD IIIa, New diagnosis of diabetes. 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 He underwent a stress test which showed ischemia in all regions. Ejection fraction was normal. An echocardiogram was done - no valvular disease & normal ejection fraction. A left heart cath was done LM disease 20%, LAD 80%, Cx 100%, Ramus 70% and RCA 90%. Endocrinology recommended starting Januvia and to follow up with PCP. Airway Difficulty: Grade I - Campuzano Pacing Wires: Ventricular: pulled 04/15 Surgeries and Major Events: 04/09/2023: CABG x3 (RODARTE-LAD / SVG-RAMUS / SVG-RC) 04/09/2023: Large Right pneumothorax, s/p pigtail in CVICU 04/10/2023: Recurrence of right PTX; 2nd pigtail in right anterior chest in CVICU A/Plan: -CAD s/p CABG: ASA, BB, statin -Post-op right PTX s/p 2 pleural pigtails. Last pigtail removed 04/16 after clamp trial. Recent CXR from 04/22 noting trace effusions & no PTX. -Leukocytosis: Elevated WBC post-op, normalized at time of discharge. Recent history of UTI - UA suspicious for UTI - Urine cx positive for E. Coli, currently being treated with oral Cipro through 04/28 (Qtc 04/22 430). Outpatient urology f/u scheduled. Despite treatment for UTI, continued to have fevers. Blood cultures x 2 pos for MRSE. ID on consult & pt placed on on IV vanco. Repeat blood cultures x 2 sent on 04/22 NGTD and pt changed from IV vanco to 600mg Linezolid BID for 10 days (to be be completed on 05/02/23). RLE SVG sites concerning for cellulitis - no plans to open for now per Dr. Pritchard, continues to improve. Hold on US of LE. Ok for discharge per ID. -pAfib: Post-op, Episodes on 04/11, 04/12 - again overnight 04/14-. Currently in NSR. Continues on oral amio taper and BB. Reviewed with Dr. Pritchard, will not add AC at this time as pt is maintaining NSR -HPL (Newly diagnosed, LDL 104, statin naive). Added 40mg atorvastatin. Local reassessment for adjustments. -h/o HTN (pre-op on amlodipine & lisinopril). Historically not well controlled. Currently controlled with coreg, amlodipine and Bumex. Allowing for permissive HTN (SBP 150-170 is ok per nephro) -Acute on CKDIIIa: Noted on admission - Baseline Cr ~1.5. Scr peaked at 2.13, Echo done & pericardial effusion ruled out. Nephro consulted - Renal US unremarkable. Started on 1mg Bumex 04/22 for volume control. Follow trend. -Diabetes (new diagnosis with HgBA1C 6.9%). Radha-op exacerbation. Reconsult to endo on 04/23, f/u recs. Outpatient endo requested. -Obesity, class 2: BMI 36. 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 Refer to Endo for consideration of Ozempic owing to concomitant diabetes. -Dispo: from [place], [place]. PT recs home. OPD & Urology scheduled. [facility] Cards & Endo requested. Discharge Planning: Anticipated Discharge Date: 04/24 Barriers to Discharge: No Barriers to Discharge Care Management Discharge Needs: Needs Prior to Discharge: None Obesity, Class III, BMI >= 40 04/15/2023 04/22/2023 PAF (paroxysmal atrial fibrillation) 04/11/2023 04/22/2023 On mechanically assisted ventilation 04/09/2023 04/13/2023 Overview: History: see care coordination note Assessment: see care coordination note Plan: see care coordination note. Stress hyperglycemia 04/09/2023 023 Overview: History: see care coordination note Assessment: see care coordination note Plan: see care coordination note Hypotension 04/09/2023 04/10/2023 Overview: History: see care coordination note Assessment: see care coordination note Plan: see care coordination note Hypoxemia 04/09/2023 04/22/2023 Angina pectoris 04/02/2023 04/13/2023 documented as of this encounter (statuses as of 06/03/2023) [facility]09-16-2023 History of Past illness Narrative* Problem Noted Date Diagnosed Date Resolved Date Hyponatremia 04/20/2023 04/22/2023 Summary 04/15/2023 04/24/2023 Overview: Indication for Surgery: CAD Preop LVEF: 62% Cards: Derrell Postop LVEF: Normal RVF: Normal PMH/PSH: poorly controlled HTN, hyperlipidemia, CKD IIIa, New diagnosis of diabetes. 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 He underwent a stress test which showed ischemia in all regions. Ejection fraction was normal. An echocardiogram was done - no valvular disease & normal ejection fraction. A left heart cath was done LM disease 20%, LAD 80%, Cx 100%, Ramus 70% and RCA 90%. Endocrinology recommended starting Januvia and to follow up with PCP. Airway Difficulty: Grade I - Campuzano Pacing Wires: Ventricular: pulled 04/15 Surgeries and Major Events: 04/09/2023: CABG x3 (RODARTE-LAD / SVG-RAMUS / SVG-RC) 04/09/2023: Large Right pneumothorax, s/p pigtail in CVICU 04/10/2023: Recurrence of right PTX; 2nd pigtail in right anterior chest in CVICU A/Plan: -CAD s/p CABG: ASA, BB, statin -Post-op right PTX s/p 2 pleural pigtails. Last pigtail removed 04/16 after clamp trial. Recent CXR from 04/22 noting trace effusions & no PTX. -Leukocytosis: Elevated WBC post-op, normalized at time of discharge. Recent history of UTI - UA suspicious for UTI - Urine cx positive for E. Coli, currently being treated with oral Cipro through 04/28 (Qtc 04/22 430). Outpatient urology f/u scheduled. Despite treatment for UTI, continued to have fevers. Blood cultures x 2 pos for MRSE. ID on consult & pt placed on on IV vanco. Repeat blood cultures x 2 sent on 04/22 NGTD and pt changed from IV vanco to 600mg Linezolid BID for 10 days (to be be completed on 05/02/23). RLE SVG sites concerning for cellulitis - no plans to open for now per Dr. Pritchard, continues to improve. Hold on US of LE. Ok for discharge per ID. -pAfib: Post-op, Episodes on 04/11, 04/12 - again overnight 04/14-. Currently in NSR. Continues on oral amio taper and BB. Reviewed with Dr. Pritchard, will not add AC at this time as pt is maintaining NSR -HPL (Newly diagnosed, LDL 104, statin naive). Added 40mg atorvastatin. Local reassessment for adjustments. -h/o HTN (pre-op on amlodipine & lisinopril). Historically not well controlled. Currently controlled with coreg, amlodipine and Bumex. Allowing for permissive HTN (SBP 150-170 is ok per nephro) -Acute on CKDIIIa: Noted on admission - Baseline Cr ~1.5. Scr peaked at 2.13, Echo done & pericardial effusion ruled out. Nephro consulted - Renal US unremarkable. Started on 1mg Bumex 04/22 for volume control. Follow trend. -Diabetes (new diagnosis with HgBA1C 6.9%). Radha-op exacerbation. Reconsult to endo on 04/23, f/u recs. Outpatient endo requested. -Obesity, class 2: BMI 36. 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 Refer to Endo for consideration of Ozempic owing to concomitant diabetes. -Dispo: from [place], [place]. PT recs home. OPD & Urology scheduled. [facility] Cards & Endo requested. Discharge Planning: Anticipated Discharge Date: 04/24 Barriers to Discharge: No Barriers to Discharge Care Management Discharge Needs: Needs Prior to Discharge: None Obesity, Class III, BMI >= 40 04/15/2023 04/22/2023 PAF (paroxysmal atrial fibrillation) 04/11/2023 04/22/2023 On mechanically assisted ventilation 04/09/2023 04/13/2023 Overview: History: see care coordination note Assessment: see care coordination note Plan: see care coordination note. Stress hyperglycemia 04/09/2023 023 Overview: History: see care coordination note Assessment: see care coordination note Plan: see care coordination note Hypotension 04/09/2023 04/10/2023 Overview: History: see care coordination note Assessment: see care coordination note Plan: see care coordination note Hypoxemia 04/09/2023 04/22/2023 Angina pectoris 04/02/2023 04/13/2023 documented as of this encounter (statuses as of 06/05/2023) [facility]09-[facility]-2023 History of Past illness Narrative* Problem Noted Date Diagnosed Date Resolved Date Hyponatremia 04/20/2023 04/22/2023 Summary 04/15/2023 04/24/2023 Overview: Indication for Surgery: CAD Preop LVEF: 62% Cards: Derrell Postop LVEF: Normal RVF: Normal PMH/PSH: poorly controlled HTN, hyperlipidemia, CKD IIIa, New diagnosis of diabetes. 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 He underwent a stress test which showed ischemia in all regions. Ejection fraction was normal. An echocardiogram was done - no valvular disease & normal ejection fraction. A left heart cath was done LM disease 20%, LAD 80%, Cx 100%, Ramus 70% and RCA 90%. Endocrinology recommended starting Januvia and to follow up with PCP. Airway Difficulty: Grade I - Campuzano Pacing Wires: Ventricular: pulled 04/15 Surgeries and Major Events: 04/09/2023: CABG x3 (RODARTE-LAD / SVG-RAMUS / SVG-RC) 04/09/2023: Large Right pneumothorax, s/p pigtail in CVICU 04/10/2023: Recurrence of right PTX; 2nd pigtail in right anterior chest in CVICU A/Plan: -CAD s/p CABG: ASA, BB, statin -Post-op right PTX s/p 2 pleural pigtails. Last pigtail removed 04/16 after clamp trial. Recent CXR from 04/22 noting trace effusions & no PTX. -Leukocytosis: Elevated WBC post-op, normalized at time of discharge. Recent history of UTI - UA suspicious for UTI - Urine cx positive for E. Coli, currently being treated with oral Cipro through 04/28 (Qtc 04/22 430). Outpatient urology f/u scheduled. Despite treatment for UTI, continued to have fevers. Blood cultures x 2 pos for ESTHER. ID on consult & pt placed on on IV vanco. Repeat blood cultures x 2 sent on 04/22 NGTD and pt changed from IV vanco to 600mg Linezolid BID for 10 days (to be be completed on 05/02/23). RLE SVG sites concerning for cellulitis - no plans to open for now per Dr. Pritchard, continues to improve. Hold on US of LE. Ok for discharge per ID. -pAfib: Post-op, Episodes on 04/11, 04/12 - again overnight 04/14-. Currently in NSR. Continues on oral amio taper and BB. Reviewed with Dr. Pritchard, will not add AC at this time as pt is maintaining NSR -HPL (Newly diagnosed, LDL 104, statin naive). Added 40mg atorvastatin. Local reassessment for adjustments. -h/o HTN (pre-op on amlodipine & lisinopril). Historically not well controlled. Currently controlled with coreg, amlodipine and Bumex. Allowing for permissive HTN (SBP 150-170 is ok per nephro) -Acute on CKDIIIa: Noted on admission - Baseline Cr ~1.5. Scr peaked at 2.13, Echo done & pericardial effusion ruled out. Nephro consulted - Renal US unremarkable. Started on 1mg Bumex 04/22 for volume control. Follow trend. -Diabetes (new diagnosis with HgBA1C 6.9%). Radha-op exacerbation. Reconsult to endo on 04/23, f/u recs. Outpatient endo requested. -Obesity, class 2: BMI 36. 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 Refer to Endo for consideration of Ozempic owing to concomitant diabetes. -Dispo: from [place], [place]. PT recs home. OPD & Urology scheduled. [facility] Cards & Endo requested. Discharge Planning: Anticipated Discharge Date: 04/24 Barriers to Discharge: No Barriers to Discharge Care Management Discharge Needs: Needs Prior to Discharge: None Obesity, Class III, BMI >= 40 04/15/2023 04/22/2023 PAF (paroxysmal atrial fibrillation) 04/11/2023 04/22/2023 On mechanically assisted ventilation 04/09/2023 04/13/2023 Overview: History: see care coordination note Assessment: see care coordination note Plan: see care coordination note. Stress hyperglycemia 04/09/202304/22/ 023 Overview: History: see care coordination note Assessment: see care coordination note Plan: see care coordination note Hypotension 04/09/2023 04/10/2023 Overview: History: see care coordination note Assessment: see care coordination note Plan: see care coordination note Hypoxemia 04/09/2023 04/22/2023 Angina pectoris 04/02/2023 04/13/2023 documented as of this encounter (statuses as of 06/12/2023) [facility]09-16-2023 History of Past illness Narrative* Problem Noted Date Diagnosed Date Resolved Date Hyponatremia 04/20/2023 04/22/2023 Summary 04/15/2023 04/24/2023 Overview: Indication for Surgery: CAD Preop LVEF: 62% Cards: Derrell Postop LVEF: Normal RVF: Normal PMH/PSH: poorly controlled HTN, hyperlipidemia, CKD IIIa, New diagnosis of diabetes. 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 He underwent a stress test which showed ischemia in all regions. Ejection fraction was normal. An echocardiogram was done - no valvular disease & normal ejection fraction. A left heart cath was done LM disease 20%, LAD 80%, Cx 100%, Ramus 70% and RCA 90%. Endocrinology recommended starting Januvia and to follow up with PCP. Airway Difficulty: Grade I - Campuzano Pacing Wires: Ventricular: pulled 04/15 Surgeries and Major Events: 04/09/2023: CABG x3 (RODARTE-LAD / SVG-RAMUS / SVG-RC) 04/09/2023: Large Right pneumothorax, s/p pigtail in CVICU 04/10/2023: Recurrence of right PTX; 2nd pigtail in right anterior chest in CVICU A/Plan: -CAD s/p CABG: ASA, BB, statin -Post-op right PTX s/p 2 pleural pigtails. Last pigtail removed 04/16 after clamp trial. Recent CXR from 04/22 noting trace effusions & no PTX. -Leukocytosis: Elevated WBC post-op, normalized at time of discharge. Recent history of UTI - UA suspicious for UTI - Urine cx positive for E. Coli, currently being treated with oral Cipro through 04/28 (Qtc 04/22 430). Outpatient urology f/u scheduled. Despite treatment for UTI, continued to have fevers. Blood cultures x 2 pos for MRSE. ID on consult & pt placed on on IV vanco. Repeat blood cultures x 2 sent on 04/22 NGTD and pt changed from IV vanco to 600mg Linezolid BID for 10 days (to be be completed on 05/02/23). RLE SVG sites concerning for cellulitis - no plans to open for now per Dr. Pritchard, continues to improve. Hold on US of LE. Ok for discharge per ID. -pAfib: Post-op, Episodes on 04/11, 04/12 - again overnight 04/14-. Currently in NSR. Continues on oral amio taper and BB. Reviewed with Dr. Pritchard, will not add AC at this time as pt is maintaining NSR -HPL (Newly diagnosed, LDL 104, statin naive). Added 40mg atorvastatin. Local reassessment for adjustments. -h/o HTN (pre-op on amlodipine & lisinopril). Historically not well controlled. Currently controlled with coreg, amlodipine and Bumex. Allowing for permissive HTN (SBP 150-170 is ok per nephro) -Acute on CKDIIIa: Noted on admission - Baseline Cr ~1.5. Scr peaked at 2.13, Echo done & pericardial effusion ruled out. Nephro consulted - Renal US unremarkable. Started on 1mg Bumex 04/22 for volume control. Follow trend. -Diabetes (new diagnosis with HgBA1C 6.9%). Radha-op exacerbation. Reconsult to endo on 04/23, f/u recs. Outpatient endo requested. -Obesity, class 2: BMI 36. 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 Refer to Endo for consideration of Ozempic owing to concomitant diabetes. -Dispo: from [place], [place]. PT recs home. OPD & Urology scheduled. [facility] Cards & Endo requested. Discharge Planning: Anticipated Discharge Date: 04/24 Barriers to Discharge: No Barriers to Discharge Care Management Discharge Needs: Needs Prior to Discharge: None Obesity, Class III, BMI >= 40 04/15/2023 04/22/2023 PAF (paroxysmal atrial fibrillation) 04/11/2023 04/22/2023 On mechanically assisted ventilation 04/09/2023 04/13/2023 Overview: History: see care coordination note Assessment: see care coordination note Plan: see care coordination note. Stress hyperglycemia 04/09/2023 023 Overview: History: see care coordination note Assessment: see care coordination note Plan: see care coordination note Hypotension 04/09/2023 04/10/2023 Overview: History: see care coordination note Assessment: see care coordination note Plan: see care coordination note Hypoxemia 04/09/2023 04/22/2023 Angina pectoris 04/02/2023 04/13/2023 documented as of this encounter (statuses as of 06/13/2023) [facility]09-16-2023 History of Past illness Narrative* Problem Noted Date Diagnosed Date Resolved Date Hyponatremia 04/20/2023 04/22/2023 Summary 04/15/2023 04/24/2023 Overview: Indication for Surgery: CAD Preop LVEF: 62% Edvin: Derrell Postop LVEF: Normal RVF: Normal PMH/PSH: poorly controlled HTN, hyperlipidemia, CKD IIIa, New diagnosis of diabetes. 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 He underwent a stress test which showed ischemia in all regions. Ejection fraction was normal. An echocardiogram was done - no valvular disease & normal ejection fraction. A left heart cath was done LM disease 20%, LAD 80%, Cx 100%, Ramus 70% and RCA 90%. Endocrinology recommended starting Januvia and to follow up with PCP. Airway Difficulty: Grade I - Campuzano Pacing Wires: Ventricular: pulled 04/15 Surgeries and Major Events: 04/09/2023: CABG x3 (RODARTE-LAD / SVG-RAMUS / SVG-RC) 04/09/2023: Large Right pneumothorax, s/p pigtail in CVICU 04/10/2023: Recurrence of right PTX; 2nd pigtail in right anterior chest in CVICU A/Plan: -CAD s/p CABG: ASA, BB, statin -Post-op right PTX s/p 2 pleural pigtails. Last pigtail removed 04/16 after clamp trial. Recent CXR from 04/22 noting trace effusions & no PTX. -Leukocytosis: Elevated WBC post-op, normalized at time of discharge. Recent history of UTI - UA suspicious for UTI - Urine cx positive for E. Coli, currently being treated with oral Cipro through 04/28 (Qtc 04/22 430). Outpatient urology f/u scheduled. Despite treatment for UTI, continued to have fevers. Blood cultures x 2 pos for MRSE. ID on consult & pt placed on on IV vanco. Repeat blood cultures x 2 sent on 04/22 NGTD and pt changed from IV vanco to 600mg Linezolid BID for 10 days (to be be completed on 05/02/23). RLE SVG sites concerning for cellulitis - no plans to open for now per Dr. Pritchard, continues to improve. Hold on US of LE. Guzman for discharge per ID. -pAfib: Post-op, Episodes on 04/11, 04/12 - again overnight 04/14-. Currently in NSR. Continues on oral amio taper and BB. Reviewed with Dr. Pritchard, will not add AC at this time as pt is maintaining NSR -HPL (Newly diagnosed, LDL 104, statin naive). Added 40mg atorvastatin. Local reassessment for adjustments. -h/o HTN (pre-op on amlodipine & lisinopril). Historically not well controlled. Currently controlled with coreg, amlodipine and Bumex. Allowing for permissive HTN (SBP 150-170 is ok per nephro) -Acute on CKDIIIa: Noted on admission - Baseline Cr ~1.5. Scr peaked at 2.13, Echo done & pericardial effusion ruled out. Nephro consulted - Renal US unremarkable. Started on 1mg Bumex 04/22 for volume control. Follow trend. -Diabetes (new diagnosis with HgBA1C 6.9%). Radha-op exacerbation. Reconsult to endo on 04/23, f/u recs. Outpatient endo requested. -Obesity, class 2: BMI 36. 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 Refer to Endo for consideration of Ozempic owing to concomitant diabetes. -Dispo: from [place], [place]. PT recs home. OPD & Urology scheduled. [facility] Cards & Endo requested. Discharge Planning: Anticipated Discharge Date: 04/24 Barriers to Discharge: No Barriers to Discharge Care Management Discharge Needs: Needs Prior to Discharge: None Obesity, Class III, BMI >= 40 04/15/2023 04/22/2023 PAF (paroxysmal atrial fibrillation) 04/11/2023 04/22/2023 On mechanically assisted ventilation 04/09/2023 04/13/2023 Overview: History: see care coordination note Assessment: see care coordination note Plan: see care coordination note. Stress hyperglycemia 04/09/2023 023 Overview: History: see care coordination note Assessment: see care coordination note Plan: see care coordination note Hypotension 04/09/2023 04/10/2023 Overview: History: see care coordination note Assessment: see care coordination note Plan: see care coordination note Hypoxemia 04/09/2023 04/22/2023 Angina pectoris 04/02/2023 04/13/2023 documented as of this encounter (statuses as of 06/14/2023) [facility]09-16-2023 History of Past illness Narrative* Problem Noted Date Diagnosed Date Resolved Date Hyponatremia 04/20/2023 04/22/2023 Summary 04/15/2023 04/24/2023 Overview: Indication for Surgery: CAD Preop LVEF: 62% Edvin: Derrell Postop LVEF: Normal RVF: Normal PMH/PSH: poorly controlled HTN, hyperlipidemia, CKD IIIa, New diagnosis of diabetes. 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 He underwent a stress test which showed ischemia in all regions. Ejection fraction was normal. An echocardiogram was done - no valvular disease & normal ejection fraction. A left heart cath was done LM disease 20%, LAD 80%, Cx 100%, Ramus 70% and RCA 90%. Endocrinology recommended starting Januvia and to follow up with PCP. Airway Difficulty: Grade I - Campuzano Pacing Wires: Ventricular: pulled 04/15 Surgeries and Major Events: 04/09/2023: CABG x3 (RODARTE-LAD / SVG-RAMUS / SVG-RC) 04/09/2023: Large Right pneumothorax, s/p pigtail in CVICU 04/10/2023: Recurrence of right PTX; 2nd pigtail in right anterior chest in CVICU A/Plan: -CAD s/p CABG: ASA, BB, statin -Post-op right PTX s/p 2 pleural pigtails. Last pigtail removed 04/16 after clamp trial. Recent CXR from 04/22 noting trace effusions & no PTX. -Leukocytosis: Elevated WBC post-op, normalized at time of discharge. Recent history of UTI - UA suspicious for UTI - Urine cx positive for E. Coli, currently being treated with oral Cipro through 04/28 (Qtc 04/22 430). Outpatient urology f/u scheduled. Despite treatment for UTI, continued to have fevers. Blood cultures x 2 pos for MRSE. ID on consult & pt placed on on IV vanco. Repeat blood cultures x 2 sent on 04/22 NGTD and pt changed from IV vanco to 600mg Linezolid BID for 10 days (to be be completed on 05/02/23). RLE SVG sites concerning for cellulitis - no plans to open for now per Dr. Pritchard, continues to improve. Hold on US of LE. Guzman for discharge per ID. -pAfib: Post-op, Episodes on 04/11, 04/12 - again overnight 04/14-. Currently in NSR. Continues on oral amio taper and BB. Reviewed with Dr. Pritchard, will not add AC at this time as pt is maintaining NSR -HPL (Newly diagnosed, LDL 104, statin naive). Added 40mg atorvastatin. Local reassessment for adjustments. -h/o HTN (pre-op on amlodipine & lisinopril). Historically not well controlled. Currently controlled with coreg, amlodipine and Bumex. Allowing for permissive HTN (SBP 150-170 is ok per nephro) -Acute on CKDIIIa: Noted on admission - Baseline Cr ~1.5. Scr peaked at 2.13, Echo done & pericardial effusion ruled out. Nephro consulted - Renal US unremarkable. Started on 1mg Bumex 04/22 for volume control. Follow trend. -Diabetes (new diagnosis with HgBA1C 6.9%). Radha-op exacerbation. Reconsult to endo on 04/23, f/u recs. Outpatient endo requested. -Obesity, class 2: BMI 36. 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 Refer to Endo for consideration of Ozempic owing to concomitant diabetes. -Dispo: from [place], [place]. PT recs home. OPD & Urology scheduled. [facility] Cards & Endo requested. Discharge Planning: Anticipated Discharge Date: 04/24 Barriers to Discharge: No Barriers to Discharge Care Management Discharge Needs: Needs Prior to Discharge: None Obesity, Class III, BMI >= 40 04/15/2023 04/22/2023 PAF (paroxysmal atrial fibrillation) 04/11/2023 04/22/2023 On mechanically assisted ventilation 04/09/2023 04/13/2023 Overview: History: see care coordination note Assessment: see care coordination note Plan: see care coordination note. Stress hyperglycemia 04/09/2023 023 Overview: History: see care coordination note Assessment: see care coordination note Plan: see care coordination note Hypotension 04/09/2023 04/10/2023 Overview: History: see care coordination note Assessment: see care coordination note Plan: see care coordination note Hypoxemia 04/09/2023 04/22/2023 Angina pectoris 04/02/2023 04/13/2023 documented as of this encounter (statuses as of 06/20/2023) [facility]09-16-2023 History of Past illness Narrative* Problem Noted Date Diagnosed Date Resolved Date Hyponatremia 04/20/2023 04/22/2023 Summary 04/15/2023 04/24/2023 Overview: Indication for Surgery: CAD Preop LVEF: 62% Cards: Derrell Postop LVEF: Normal RVF: Normal PMH/PSH: poorly controlled HTN, hyperlipidemia, CKD IIIa, New diagnosis of diabetes. 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 He underwent a stress test which showed ischemia in all regions. Ejection fraction was normal. An echocardiogram was done - no valvular disease & normal ejection fraction. A left heart cath was done LM disease 20%, LAD 80%, Cx 100%, Ramus 70% and RCA 90%. Endocrinology recommended starting Januvia and to follow up with PCP. Airway Difficulty: Grade I - Campuzano Pacing Wires: Ventricular: pulled 04/15 Surgeries and Major Events: 04/09/2023: CABG x3 (RODARTE-LAD / SVG-RAMUS / SVG-RC) 04/09/2023: Large Right pneumothorax, s/p pigtail in CVICU 04/10/2023: Recurrence of right PTX; 2nd pigtail in right anterior chest in CVICU A/Plan: -CAD s/p CABG: ASA, BB, statin -Post-op right PTX s/p 2 pleural pigtails. Last pigtail removed 04/16 after clamp trial. Recent CXR from 04/22 noting trace effusions & no PTX. -Leukocytosis: Elevated WBC post-op, normalized at time of discharge. Recent history of UTI - UA suspicious for UTI - Urine cx positive for E. Coli, currently being treated with oral Cipro through 04/28 (Qtc 04/22 430). Outpatient urology f/u scheduled. Despite treatment for UTI, continued to have fevers. Blood cultures x 2 pos for MRSE. ID on consult & pt placed on on IV vanco. Repeat blood cultures x 2 sent on 04/22 NGTD and pt changed from IV vanco to 600mg Linezolid BID for 10 days (to be be completed on 05/02/23). RLE SVG sites concerning for cellulitis - no plans to open for now per Dr. Pritchard, continues to improve. Hold on US of LE. Guzman for discharge per ID. -pAfib: Post-op, Episodes on 04/11, 04/12 - again overnight 04/14-. Currently in NSR. Continues on oral amio taper and BB. Reviewed with Dr. Pritchard, will not add AC at this time as pt is maintaining NSR -HPL (Newly diagnosed, LDL 104, statin naive). Added 40mg atorvastatin. Local reassessment for adjustments. -h/o HTN (pre-op on amlodipine & lisinopril). Historically not well controlled. Currently controlled with coreg, amlodipine and Bumex. Allowing for permissive HTN (SBP 150-170 is ok per nephro) -Acute on CKDIIIa: Noted on admission - Baseline Cr ~1.5. Scr peaked at 2.13, Echo done & pericardial effusion ruled out. Nephro consulted - Renal US unremarkable. Started on 1mg Bumex 04/22 for volume control. Follow trend. -Diabetes (new diagnosis with HgBA1C 6.9%). Radha-op exacerbation. Reconsult to endo on 04/23, f/u recs. Outpatient endo requested. -Obesity, class 2: BMI 36. 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 Refer to Endo for consideration of Ozempic owing to concomitant diabetes. -Dispo: from [place], [place]. PT recs home. OPD & Urology scheduled. [facility] Cards & Endo requested. Discharge Planning: Anticipated Discharge Date: 04/24 Barriers to Discharge: No Barriers to Discharge Care Management Discharge Needs: Needs Prior to Discharge: None Obesity, Class III, BMI >= 40 04/15/2023 04/22/2023 PAF (paroxysmal atrial fibrillation) 04/11/2023 04/22/2023 On mechanically assisted ventilation 04/09/2023 04/13/2023 Overview: History: see care coordination note Assessment: see care coordination note Plan: see care coordination note. Stress hyperglycemia 04/09/2023 023 Overview: History: see care coordination note Assessment: see care coordination note Plan: see care coordination note Hypotension 04/09/2023 04/10/2023 Overview: History: see care coordination note Assessment: see care coordination note Plan: see care coordination note Hypoxemia 04/09/2023 04/22/2023 Angina pectoris 04/02/2023 04/13/2023 documented as of this encounter (statuses as of 06/21/2023) [facility]09-16-2023 History of Past illness Narrative* Problem Noted Date Diagnosed Date Resolved Date Hyponatremia 04/20/2023 04/22/2023 Summary 04/15/2023 04/24/2023 Overview: Indication for Surgery: CAD Preop LVEF: 62% Cards: Derrell Postop LVEF: Normal RVF: Normal PMH/PSH: poorly controlled HTN, hyperlipidemia, CKD IIIa, New diagnosis of diabetes. 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 He underwent a stress test which showed ischemia in all regions. Ejection fraction was normal. An echocardiogram was done - no valvular disease & normal ejection fraction. A left heart cath was done LM disease 20%, LAD 80%, Cx 100%, Ramus 70% and RCA 90%. Endocrinology recommended starting Januvia and to follow up with PCP. Airway Difficulty: Grade I - Campuzano Pacing Wires: Ventricular: pulled 04/15 Surgeries and Major Events: 04/09/2023: CABG x3 (RODARTE-LAD / SVG-RAMUS / SVG-RC) 04/09/2023: Large Right pneumothorax, s/p pigtail in CVICU 04/10/2023: Recurrence of right PTX; 2nd pigtail in right anterior chest in CVICU A/Plan: -CAD s/p CABG: ASA, BB, statin -Post-op right PTX s/p 2 pleural pigtails. Last pigtail removed 04/16 after clamp trial. Recent CXR from 04/22 noting trace effusions & no PTX. -Leukocytosis: Elevated WBC post-op, normalized at time of discharge. Recent history of UTI - UA suspicious for UTI - Urine cx positive for E. Coli, currently being treated with oral Cipro through 04/28 (Qtc 04/22 430). Outpatient urology f/u scheduled. Despite treatment for UTI, continued to have fevers. Blood cultures x 2 pos for MRSE. ID on consult & pt placed on on IV vanco. Repeat blood cultures x 2 sent on 04/22 NGTD and pt changed from IV vanco to 600mg Linezolid BID for 10 days (to be be completed on 05/02/23). RLE SVG sites concerning for cellulitis - no plans to open for now per Dr. Pritchard, continues to improve. Hold on US of LE. Guzman for discharge per ID. -pAfib: Post-op, Episodes on 04/11, 04/12 - again overnight 04/14-. Currently in NSR. Continues on oral amio taper and BB. Reviewed with Dr. Pritchard, will not add AC at this time as pt is maintaining NSR -HPL (Newly diagnosed, LDL 104, statin naive). Added 40mg atorvastatin. Local reassessment for adjustments. -h/o HTN (pre-op on amlodipine & lisinopril). Historically not well controlled. Currently controlled with coreg, amlodipine and Bumex. Allowing for permissive HTN (SBP 150-170 is ok per nephro) -Acute on CKDIIIa: Noted on admission - Baseline Cr ~1.5. Scr peaked at 2.13, Echo done & pericardial effusion ruled out. Nephro consulted - Renal US unremarkable. Started on 1mg Bumex 04/22 for volume control. Follow trend. -Diabetes (new diagnosis with HgBA1C 6.9%). Radha-op exacerbation. Reconsult to endo on 04/23, f/u recs. Outpatient endo requested. -Obesity, class 2: BMI 36. 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 Refer to Endo for consideration of Ozempic owing to concomitant diabetes. -Dispo: from [place], [place]. PT recs home. OPD & Urology scheduled. [facility] Cards & Endo requested. Discharge Planning: Anticipated Discharge Date: 04/24 Barriers to Discharge: No Barriers to Discharge Care Management Discharge Needs: Needs Prior to Discharge: None Obesity, Class III, BMI >= 40 04/15/2023 04/22/2023 PAF (paroxysmal atrial fibrillation) 04/11/2023 04/22/2023 On mechanically assisted ventilation 04/09/2023 04/13/2023 Overview: History: see care coordination note Assessment: see care coordination note Plan: see care coordination note. Stress hyperglycemia 04/09/2023 023 Overview: History: see care coordination note Assessment: see care coordination note Plan: see care coordination note Hypotension 04/09/2023 04/10/2023 Overview: History: see care coordination note Assessment: see care coordination note Plan: see care coordination note Hypoxemia 04/09/2023 04/22/2023 Angina pectoris 04/02/2023 04/13/2023 documented as of this encounter (statuses as of 06/23/2023) [facility]09-[facility]-2023 History of Past illness Narrative* Problem Noted Date Diagnosed Date Resolved Date Hyponatremia 04/20/2023 04/22/2023 Summary 04/15/2023 04/24/2023 Overview: Indication for Surgery: CAD Preop LVEF: 62% Cards: Derrell Postop LVEF: Normal RVF: Normal PMH/PSH: poorly controlled HTN, hyperlipidemia, CKD IIIa, New diagnosis of diabetes. 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 He underwent a stress test which showed ischemia in all regions. Ejection fraction was normal. An echocardiogram was done - no valvular disease & normal ejection fraction. A left heart cath was done LM disease 20%, LAD 80%, Cx 100%, Ramus 70% and RCA 90%. Endocrinology recommended starting Januvia and to follow up with PCP. Airway Difficulty: Grade I - Campuzano Pacing Wires: Ventricular: pulled 04/15 Surgeries and Major Events: 04/09/2023: CABG x3 (RODARTE-LAD / SVG-RAMUS / SVG-RC) 04/09/2023: Large Right pneumothorax, s/p pigtail in CVICU 04/10/2023: Recurrence of right PTX; 2nd pigtail in right anterior chest in CVICU A/Plan: -CAD s/p CABG: ASA, BB, statin -Post-op right PTX s/p 2 pleural pigtails. Last pigtail removed 04/16 after clamp trial. Recent CXR from 04/22 noting trace effusions & no PTX. -Leukocytosis: Elevated WBC post-op, normalized at time of discharge. Recent history of UTI - UA suspicious for UTI - Urine cx positive for E. Coli, currently being treated with oral Cipro through 04/28 (Qtc 04/22 430). Outpatient urology f/u scheduled. Despite treatment for UTI, continued to have fevers. Blood cultures x 2 pos for MRSE. ID on consult & pt placed on on IV vanco. Repeat blood cultures x 2 sent on 04/22 NGTD and pt changed from IV vanco to 600mg Linezolid BID for 10 days (to be be completed on 05/02/23). RLE SVG sites concerning for cellulitis - no plans to open for now per Dr. Pritchard, continues to improve. Hold on US of LE. Ok for discharge per ID. -pAfib: Post-op, Episodes on 04/11, 04/12 - again overnight 04/14-. Currently in NSR. Continues on oral amio taper and BB. Reviewed with Dr. Pritchard, will not add AC at this time as pt is maintaining NSR -HPL (Newly diagnosed, LDL 104, statin naive). Added 40mg atorvastatin. Local reassessment for adjustments. -h/o HTN (pre-op on amlodipine & lisinopril). Historically not well controlled. Currently controlled with coreg, amlodipine and Bumex. Allowing for permissive HTN (SBP 150-170 is ok per nephro) -Acute on CKDIIIa: Noted on admission - Baseline Cr ~1.5. Scr peaked at 2.13, Echo done & pericardial effusion ruled out. Nephro consulted - Renal US unremarkable. Started on 1mg Bumex 04/22 for volume control. Follow trend. -Diabetes (new diagnosis with HgBA1C 6.9%). Radha-op exacerbation. Reconsult to endo on 04/23, f/u recs. Outpatient endo requested. -Obesity, class 2: BMI 36. 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 Refer to Endo for consideration of Ozempic owing to concomitant diabetes. -Dispo: from [place], [place]. PT recs home. OPD & Urology scheduled. [facility] Cards & Endo requested. Discharge Planning: Anticipated Discharge Date: 04/24 Barriers to Discharge: No Barriers to Discharge Care Management Discharge Needs: Needs Prior to Discharge: None Obesity, Class III, BMI >= 40 04/15/2023 04/22/2023 PAF (paroxysmal atrial fibrillation) 04/11/2023 04/22/2023 On mechanically assisted ventilation 04/09/2023 04/13/2023 Overview: History: see care coordination note Assessment: see care coordination note Plan: see care coordination note. Stress hyperglycemia 04/09/2023 023 Overview: History: see care coordination note Assessment: see care coordination note Plan: see care coordination note Hypotension 04/09/2023 04/10/2023 Overview: History: see care coordination note Assessment: see care coordination note Plan: see care coordination note Hypoxemia 04/09/2023 04/22/2023 Angina pectoris 04/02/2023 04/13/2023 documented as of this encounter (statuses as of 06/25/2023) [facility]09-16-2023 History of Past illness Narrative* Problem Noted Date Diagnosed Date Resolved Date Hyponatremia 04/20/2023 04/22/2023 Summary 04/15/2023 04/24/2023 Overview: Indication for Surgery: CAD Preop LVEF: 62% Cards: Derrell Postop LVEF: Normal RVF: Normal PMH/PSH: poorly controlled HTN, hyperlipidemia, CKD IIIa, New diagnosis of diabetes. 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 He underwent a stress test which showed ischemia in all regions. Ejection fraction was normal. An echocardiogram was done - no valvular disease & normal ejection fraction. A left heart cath was done LM disease 20%, LAD 80%, Cx 100%, Ramus 70% and RCA 90%. Endocrinology recommended starting Januvia and to follow up with PCP. Airway Difficulty: Grade I - Campuzano Pacing Wires: Ventricular: pulled 04/15 Surgeries and Major Events: 04/09/2023: CABG x3 (RODARTE-LAD / SVG-RAMUS / SVG-RC) 04/09/2023: Large Right pneumothorax, s/p pigtail in CVICU 04/10/2023: Recurrence of right PTX; 2nd pigtail in right anterior chest in CVICU A/Plan: -CAD s/p CABG: ASA, BB, statin -Post-op right PTX s/p 2 pleural pigtails. Last pigtail removed 04/16 after clamp trial. Recent CXR from 04/22 noting trace effusions & no PTX. -Leukocytosis: Elevated WBC post-op, normalized at time of discharge. Recent history of UTI - UA suspicious for UTI - Urine cx positive for E. Coli, currently being treated with oral Cipro through 9/24 (Qtc 04/22 430). Outpatient urology f/u scheduled. Despite treatment for UTI, continued to have fevers. Blood cultures x 2 pos for [place]. ID on consult & pt placed on on IV vanco. Repeat blood cultures x 2 sent on 04/22 NGTD and pt changed from IV vanco to 600mg Linezolid BID for 10 days (to be be completed on 05/02/23). RLE SVG sites concerning for cellulitis - no plans to open for now per Dr. Pritchard, continues to improve. Hold on US of LE. Ok for discharge per ID. -pAfib: Post-op, Episodes on 04/11, 04/12 - again overnight 04/14-. Currently in NSR. Continues on oral amio taper and BB. Reviewed with Dr. Pritchard, will not add AC at this time as pt is maintaining NSR -HPL (Newly diagnosed, LDL 104, statin naive). Added 40mg atorvastatin. Local reassessment for adjustments. -h/o HTN (pre-op on amlodipine & lisinopril). Historically not well controlled. Currently controlled with coreg, amlodipine and Bumex. Allowing for permissive HTN (SBP 150-170 is ok per nephro) -Acute on CKDIIIa: Noted on admission - Baseline Cr ~1.5. Scr peaked at 2.13, Echo done & pericardial effusion ruled out. Nephro consulted - Renal US unremarkable. Started on 1mg Bumex 04/22 for volume control. Follow trend. -Diabetes (new diagnosis with HgBA1C 6.9%). Radha-op exacerbation. Reconsult to endo on 04/23, f/u recs. Outpatient endo requested. -Obesity, class 2: BMI 36. 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 Refer to Endo for consideration of Ozempic owing to concomitant diabetes. -Dispo: from [place], [place]. PT recs home. OPD & Urology scheduled. [facility] Cards & Endo requested. Discharge Planning: Anticipated Discharge Date: 04/24 Barriers to Discharge: No Barriers to Discharge Care Management Discharge Needs: Needs Prior to Discharge: None Obesity, Class III, BMI >= 40 04/15/2023 04/22/2023 PAF (paroxysmal atrial fibrillation) 04/11/2023 04/22/2023 On mechanically assisted ventilation 04/09/2023 04/13/2023 Overview: History: see care coordination note Assessment: see care coordination note Plan: see care coordination note. Stress hyperglycemia 04/09/2023 023 Overview: History: see care coordination note Assessment: see care coordination note Plan: see care coordination note Hypotension 04/09/2023 04/10/2023 Overview: History: see care coordination note Assessment: see care coordination note Plan: see care coordination note Hypoxemia 04/09/2023 04/22/2023 Angina pectoris 04/02/2023 04/13/2023 documented as of this encounter (statuses as of 07/04/2023) [facility]09-16-2023 History of Past illness Narrative* Problem Noted Date Diagnosed Date Resolved Date Hyponatremia 04/20/2023 04/22/2023 Summary 04/15/2023 04/24/2023 Overview: Indication for Surgery: CAD Preop LVEF: 62% Cards: Derrell Postop LVEF: Normal RVF: Normal PMH/PSH: poorly controlled HTN, hyperlipidemia, CKD IIIa, New diagnosis of diabetes. 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 He underwent a stress test which showed ischemia in all regions. Ejection fraction was normal. An echocardiogram was done - no valvular disease & normal ejection fraction. A left heart cath was done LM disease 20%, LAD 80%, Cx 100%, Ramus 70% and RCA 90%. Endocrinology recommended starting Januvia and to follow up with PCP. Airway Difficulty: Grade I - Campuzano Pacing Wires: Ventricular: pulled 04/15 Surgeries and Major Events: 04/09/2023: CABG x3 (RODARTE-LAD / SVG-RAMUS / SVG-RC) 04/09/2023: Large Right pneumothorax, s/p pigtail in CVICU 04/10/2023: Recurrence of right PTX; 2nd pigtail in right anterior chest in CVICU A/Plan: -CAD s/p CABG: ASA, BB, statin -Post-op right PTX s/p 2 pleural pigtails. Last pigtail removed 04/16 after clamp trial. Recent CXR from 04/22 noting trace effusions & no PTX. -Leukocytosis: Elevated WBC post-op, normalized at time of discharge. Recent history of UTI - UA suspicious for UTI - Urine cx positive for E. Coli, currently being treated with oral Cipro through 04/28 (Qtc 04/22 430). Outpatient urology f/u scheduled. Despite treatment for UTI, continued to have fevers. Blood cultures x 2 pos for MRSE. ID on consult & pt placed on on IV vanco. Repeat blood cultures x 2 sent on 04/22 NGTD and pt changed from IV vanco to 600mg Linezolid BID for 10 days (to be be completed on 05/02/23). RLE SVG sites concerning for cellulitis - no plans to open for now per Dr. Pritchard, continues to improve. Hold on US of LE. Ok for discharge per ID. -pAfib: Post-op, Episodes on 04/11, 04/12 - again overnight 04/14-. Currently in NSR. Continues on oral amio taper and BB. Reviewed with Dr. Pritchard, will not add AC at this time as pt is maintaining NSR -HPL (Newly diagnosed, LDL 104, statin naive). Added 40mg atorvastatin. Local reassessment for adjustments. -h/o HTN (pre-op on amlodipine & lisinopril). Historically not well controlled. Currently controlled with coreg, amlodipine and Bumex. Allowing for permissive HTN (SBP 150-170 is ok per nephro) -Acute on CKDIIIa: Noted on admission - Baseline Cr ~1.5. Scr peaked at 2.13, Echo done & pericardial effusion ruled out. Nephro consulted - Renal US unremarkable. Started on 1mg Bumex 04/22 for volume control. Follow trend. -Diabetes (new diagnosis with HgBA1C 6.9%). Radha-op exacerbation. Reconsult to endo on 04/23, f/u recs. Outpatient endo requested. -Obesity, class 2: BMI 36. 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 Refer to Endo for consideration of Ozempic owing to concomitant diabetes. -Dispo: from [place], [place]. PT recs home. OPD & Urology scheduled. [facility] Cards & Endo requested. Discharge Planning: Anticipated Discharge Date: 04/24 Barriers to Discharge: No Barriers to Discharge Care Management Discharge Needs: Needs Prior to Discharge: None Obesity, Class III, BMI >= 40 04/15/2023 04/22/2023 PAF (paroxysmal atrial fibrillation) 04/11/2023 04/22/2023 On mechanically assisted ventilation 04/09/2023 04/13/2023 Overview: History: see care coordination note Assessment: see care coordination note Plan: see care coordination note. Stress hyperglycemia 04/09/2023 023 Overview: History: see care coordination note Assessment: see care coordination note Plan: see care coordination note Hypotension 04/09/2023 04/10/2023 Overview: History: see care coordination note Assessment: see care coordination note Plan: see care coordination note Hypoxemia 04/09/2023 04/22/2023 Angina pectoris 04/02/2023 04/13/2023 documented as of this encounter (statuses as of 07/05/2023) [facility]09-16-2023 History of Past illness Narrative* Problem Noted Date Diagnosed Date Resolved Date Hyponatremia 04/20/2023 04/22/2023 Summary 04/15/2023 04/24/2023 Overview: Indication for Surgery: CAD Preop LVEF: 62% Cards: Derrell Postop LVEF: Normal RVF: Normal PMH/PSH: poorly controlled HTN, hyperlipidemia, CKD IIIa, New diagnosis of diabetes. 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 He underwent a stress test which showed ischemia in all regions. Ejection fraction was normal. An echocardiogram was done - no valvular disease & normal ejection fraction. A left heart cath was done LM disease 20%, LAD 80%, Cx 100%, Ramus 70% and RCA 90%. Endocrinology recommended starting Januvia and to follow up with PCP. Airway Difficulty: Grade I - Campuzano Pacing Wires: Ventricular: pulled 04/15 Surgeries and Major Events: 04/09/2023: CABG x3 (RODARTE-LAD / SVG-RAMUS / SVG-RC) 04/09/2023: Large Right pneumothorax, s/p pigtail in CVICU 04/10/2023: Recurrence of right PTX; 2nd pigtail in right anterior chest in CVICU A/Plan: -CAD s/p CABG: ASA, BB, statin -Post-op right PTX s/p 2 pleural pigtails. Last pigtail removed 04/16 after clamp trial. Recent CXR from 04/22 noting trace effusions & no PTX. -Leukocytosis: Elevated WBC post-op, normalized at time of discharge. Recent history of UTI - UA suspicious for UTI - Urine cx positive for E. Coli, currently being treated with oral Cipro through 04/28 (Qtc 04/22 430). Outpatient urology f/u scheduled. Despite treatment for UTI, continued to have fevers. Blood cultures x 2 pos for MRSE. ID on consult & pt placed on on IV vanco. Repeat blood cultures x 2 sent on 04/22 NGTD and pt changed from IV vanco to 600mg Linezolid BID for 10 days (to be be completed on 05/02/23). RLE SVG sites concerning for cellulitis - no plans to open for now per Dr. Pritchard, continues to improve. Hold on US of [place] for discharge per ID. -pAfib: Post-op, Episodes on 04/11, 04/12 - again overnight 04/14-. Currently in NSR. Continues on oral amio taper and BB. Reviewed with Dr. Pritchard, will not add AC at this time as pt is maintaining NSR -HPL (Newly diagnosed, LDL 104, statin naive). Added 40mg atorvastatin. Local reassessment for adjustments. -h/o HTN (pre-op on amlodipine & lisinopril). Historically not well controlled. Currently controlled with coreg, amlodipine and Bumex. Allowing for permissive HTN (SBP 150-170 is ok per nephro) -Acute on CKDIIIa: Noted on admission - Baseline Cr ~1.5. Scr peaked at 2.13, Echo done & pericardial effusion ruled out. Nephro consulted - Renal US unremarkable. Started on 1mg Bumex 04/22 for volume control. Follow trend. -Diabetes (new diagnosis with HgBA1C 6.9%). Radha-op exacerbation. Reconsult to endo on 04/23, f/u recs. Outpatient endo requested. -Obesity, class 2: BMI 36. 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 Refer to Endo for consideration of Ozempic owing to concomitant diabetes. -Dispo: from [place], [place]. PT recs home. OPD & Urology scheduled. [facility] Cards & Endo requested. Discharge Planning: Anticipated Discharge Date: 04/24 Barriers to Discharge: No Barriers to Discharge Care Management Discharge Needs: Needs Prior to Discharge: None Obesity, Class III, BMI >= 40 04/15/2023 04/22/2023 PAF (paroxysmal atrial fibrillation) 04/11/2023 04/22/2023 On mechanically assisted ventilation 04/09/2023 04/13/2023 Overview: History: see care coordination note Assessment: see care coordination note Plan: see care coordination note. Stress hyperglycemia 04/09/2023 023 Overview: History: see care coordination note Assessment: see care coordination note Plan: see care coordination note Hypotension 04/09/2023 04/10/2023 Overview: History: see care coordination note Assessment: see care coordination note Plan: see care coordination note Hypoxemia 04/09/2023 04/22/2023 Angina pectoris 04/02/2023 04/13/2023 documented as of this encounter (statuses as of 07/09/2023) [facility]09-16-2023 History of Past illness Narrative* Problem Noted Date Diagnosed Date Resolved Date Hyponatremia 04/20/2023 04/22/2023 Summary 04/15/2023 04/24/2023 Overview: Indication for Surgery: CAD Preop LVEF: 62% Cards: Derrell Postop LVEF: Normal RVF: Normal PMH/PSH: poorly controlled HTN, hyperlipidemia, CKD IIIa, New diagnosis of diabetes. 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 He underwent a stress test which showed ischemia in all regions. Ejection fraction was normal. An echocardiogram was done - no valvular disease & normal ejection fraction. A left heart cath was done LM disease 20%, LAD 80%, Cx 100%, Ramus 70% and RCA 90%. Endocrinology recommended starting Januvia and to follow up with PCP. Airway Difficulty: Grade I - Campuzano Pacing Wires: Ventricular: pulled 04/15 Surgeries and Major Events: 04/09/2023: CABG x3 (RODARTE-LAD / SVG-RAMUS / SVG-RC) 04/09/2023: Large Right pneumothorax, s/p pigtail in CVICU 04/10/2023: Recurrence of right PTX; 2nd pigtail in right anterior chest in CVICU A/Plan: -CAD s/p CABG: ASA, BB, statin -Post-op right PTX s/p 2 pleural pigtails. Last pigtail removed 04/16 after clamp trial. Recent CXR from 04/22 noting trace effusions & no PTX. -Leukocytosis: Elevated WBC post-op, normalized at time of discharge. Recent history of UTI - UA suspicious for UTI - Urine cx positive for E. Coli, currently being treated with oral Cipro through 04/28 (Qtc 04/22 430). Outpatient urology f/u scheduled. Despite treatment for UTI, continued to have fevers. Blood cultures x 2 pos for MRSE. ID on consult & pt placed on on IV vanco. Repeat blood cultures x 2 sent on 04/22 NGTD and pt changed from IV vanco to 600mg Linezolid BID for 10 days (to be be completed on 05/02/23). RLE SVG sites concerning for cellulitis - no plans to open for now per Dr. Pritchard, continues to improve. Hold on US of LE. Ok for discharge per ID. -pAfib: Post-op, Episodes on 04/11, 04/12 - again overnight 04/14-. Currently in NSR. Continues on oral amio taper and BB. Reviewed with Dr. Pritchard, will not add AC at this time as pt is maintaining NSR -HPL (Newly diagnosed, LDL 104, statin naive). Added 40mg atorvastatin. Local reassessment for adjustments. -h/o HTN (pre-op on amlodipine & lisinopril). Historically not well controlled. Currently controlled with coreg, amlodipine and Bumex. Allowing for permissive HTN (SBP 150-170 is ok per nephro) -Acute on CKDIIIa: Noted on admission - Baseline Cr ~1.5. Scr peaked at 2.13, Echo done & pericardial effusion ruled out. Nephro consulted - Renal US unremarkable. Started on 1mg Bumex 04/22 for volume control. Follow trend. -Diabetes (new diagnosis with HgBA1C 6.9%). Radha-op exacerbation. Reconsult to endo on 04/23, f/u recs. Outpatient endo requested. -Obesity, class 2: BMI 36. 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 Refer to Endo for consideration of Ozempic owing to concomitant diabetes. -Dispo: from [place], [place]. PT recs home. OPD & Urology scheduled. [facility] Cards & Endo requested. Discharge Planning: Anticipated Discharge Date: 04/24 Barriers to Discharge: No Barriers to Discharge Care Management Discharge Needs: Needs Prior to Discharge: None Obesity, Class III, BMI >= 40 04/15/2023 04/22/2023 PAF (paroxysmal atrial fibrillation) 04/11/2023 04/22/2023 On mechanically assisted ventilation 04/09/2023 04/13/2023 Overview: History: see care coordination note Assessment: see care coordination note Plan: see care coordination note. Stress hyperglycemia 04/09/2023 023 Overview: History: see care coordination note Assessment: see care coordination note Plan: see care coordination note Hypotension 04/09/2023 04/10/2023 Overview: History: see care coordination note Assessment: see care coordination note Plan: see care coordination note Hypoxemia 04/09/2023 04/22/2023 Angina pectoris 04/02/2023 04/13/2023 documented as of this encounter (statuses as of 07/11/2023) [facility]09-16-2023 History of Past illness Narrative* Problem Noted Date Diagnosed Date Resolved Date Hyponatremia 04/20/2023 04/22/2023 Summary 04/15/2023 04/24/2023 Overview: Indication for Surgery: CAD Preop LVEF: 62% Cards: Derrell Postop LVEF: Normal RVF: Normal PMH/PSH: poorly controlled HTN, hyperlipidemia, CKD IIIa, New diagnosis of diabetes. 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 He underwent a stress test which showed ischemia in all regions. Ejection fraction was normal. An echocardiogram was done - no valvular disease & normal ejection fraction. A left heart cath was done LM disease 20%, LAD 80%, Cx 100%, Ramus 70% and RCA 90%. Endocrinology recommended starting Januvia and to follow up with PCP. Airway Difficulty: Grade I - Campuzano Pacing Wires: Ventricular: pulled 04/15 Surgeries and Major Events: 04/09/2023: CABG x3 (RODARTE-LAD / SVG-RAMUS / SVG-RC) 04/09/2023: Large Right pneumothorax, s/p pigtail in CVICU 04/10/2023: Recurrence of right PTX; 2nd pigtail in right anterior chest in CVICU A/Plan: -CAD s/p CABG: ASA, BB, statin -Post-op right PTX s/p 2 pleural pigtails. Last pigtail removed 04/16 after clamp trial. Recent CXR from 04/22 noting trace effusions & no PTX. -Leukocytosis: Elevated WBC post-op, normalized at time of discharge. Recent history of UTI - UA suspicious for UTI - Urine cx positive for E. Coli, currently being treated with oral Cipro through 04/28 (Qtc 04/22 430). Outpatient urology f/u scheduled. Despite treatment for UTI, continued to have fevers. Blood cultures x 2 pos for MRSE. ID on consult & pt placed on on IV vanco. Repeat blood cultures x 2 sent on 04/22 NGTD and pt changed from IV vanco to 600mg Linezolid BID for 10 days (to be be completed on 05/02/23). RLE SVG sites concerning for cellulitis - no plans to open for now per Dr. Pritchard, continues to improve. Hold on US of [place] for discharge per ID. -pAfib: Post-op, Episodes on 04/11, 04/12 - again overnight 04/14-. Currently in NSR. Continues on oral amio taper and BB. Reviewed with Dr. Pritchard, will not add AC at this time as pt is maintaining NSR -HPL (Newly diagnosed, LDL 104, statin naive). Added 40mg atorvastatin. Local reassessment for adjustments. -h/o HTN (pre-op on amlodipine & lisinopril). Historically not well controlled. Currently controlled with coreg, amlodipine and Bumex. Allowing for permissive HTN (SBP 150-170 is ok per nephro) -Acute on CKDIIIa: Noted on admission - Baseline Cr ~1.5. Scr peaked at 2.13, Echo done & pericardial effusion ruled out. Nephro consulted - Renal US unremarkable. Started on 1mg Bumex 04/22 for volume control. Follow trend. -Diabetes (new diagnosis with HgBA1C 6.9%). Radha-op exacerbation. Reconsult to endo on 04/23, f/u recs. Outpatient endo requested. -Obesity, class 2: BMI 36. 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 Refer to Endo for consideration of Ozempic owing to concomitant diabetes. -Dispo: from [place], [place]. PT recs home. OPD & Urology scheduled. [facility] Cards & Endo requested. Discharge Planning: Anticipated Discharge Date: 04/24 Barriers to Discharge: No Barriers to Discharge Care Management Discharge Needs: Needs Prior to Discharge: None Obesity, Class III, BMI >= 40 04/15/2023 04/22/2023 PAF (paroxysmal atrial fibrillation) 04/11/2023 04/22/2023 On mechanically assisted ventilation 04/09/2023 04/13/2023 Overview: History: see care coordination note Assessment: see care coordination note Plan: see care coordination note. Stress hyperglycemia 04/09/2023 023 Overview: History: see care coordination note Assessment: see care coordination note Plan: see care coordination note Hypotension 04/09/2023 04/10/2023 Overview: History: see care coordination note Assessment: see care coordination note Plan: see care coordination note Hypoxemia 04/09/2023 04/22/2023 Angina pectoris 04/02/2023 04/13/2023 documented as of this encounter (statuses as of 07/12/2023) [facility]09-[facility]-2023 History of Past illness Narrative* Problem Noted Date Diagnosed Date Resolved Date Hyponatremia 04/20/2023 04/22/2023 Summary 04/15/2023 04/24/2023 Overview: Indication for Surgery: CAD Preop LVEF: 62% Cards: Derrell Postop LVEF: Normal RVF: Normal PMH/PSH: poorly controlled HTN, hyperlipidemia, CKD IIIa, New diagnosis of diabetes. 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 He underwent a stress test which showed ischemia in all regions. Ejection fraction was normal. An echocardiogram was done - no valvular disease & normal ejection fraction. A left heart cath was done LM disease 20%, LAD 80%, Cx 100%, Ramus 70% and RCA 90%. Endocrinology recommended starting Januvia and to follow up with PCP. Airway Difficulty: Grade I - Campuzano Pacing Wires: Ventricular: pulled 04/15 Surgeries and Major Events: 04/09/2023: CABG x3 (RODARTE-LAD / SVG-RAMUS / SVG-RC) 04/09/2023: Large Right pneumothorax, s/p pigtail in CVICU 04/10/2023: Recurrence of right PTX; 2nd pigtail in right anterior chest in CVICU A/Plan: -CAD s/p CABG: ASA, BB, statin -Post-op right PTX s/p 2 pleural pigtails. Last pigtail removed 04/16 after clamp trial. Recent CXR from 04/22 noting trace effusions & no PTX. -Leukocytosis: Elevated WBC post-op, normalized at time of discharge. Recent history of UTI - UA suspicious for UTI - Urine cx positive for E. Coli, currently being treated with oral Cipro through 04/28 (Qtc 04/22 430). Outpatient urology f/u scheduled. Despite treatment for UTI, continued to have fevers. Blood cultures x 2 pos for MRSE. ID on consult & pt placed on on IV vanco. Repeat blood cultures x 2 sent on 04/22 NGTD and pt changed from IV vanco to 600mg Linezolid BID for 10 days (to be be completed on 05/02/23). RLE SVG sites concerning for cellulitis - no plans to open for now per Dr. Pritchard, continues to improve. Hold on US of LE. Guzman for discharge per ID. -pAfib: Post-op, Episodes on 04/11, 04/12 - again overnight 04/14-. Currently in NSR. Continues on oral amio taper and BB. Reviewed with Dr. Pritchard, will not add AC at this time as pt is maintaining NSR -HPL (Newly diagnosed, LDL 104, statin naive). Added 40mg atorvastatin. Local reassessment for adjustments. -h/o HTN (pre-op on amlodipine & lisinopril). Historically not well controlled. Currently controlled with coreg, amlodipine and Bumex. Allowing for permissive HTN (SBP 150-170 is ok per nephro) -Acute on CKDIIIa: Noted on admission - Baseline Cr ~1.5. Scr peaked at 2.13, Echo done & pericardial effusion ruled out. Nephro consulted - Renal US unremarkable. Started on 1mg Bumex 04/22 for volume control. Follow trend. -Diabetes (new diagnosis with HgBA1C 6.9%). Radha-op exacerbation. Reconsult to endo on 04/23, f/u recs. Outpatient endo requested. -Obesity, class 2: BMI 36. 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 Refer to Endo for consideration of Ozempic owing to concomitant diabetes. -Dispo: from [place], [place]. PT recs home. OPD & Urology scheduled. [facility] Cards & Endo requested. Discharge Planning: Anticipated Discharge Date: 04/24 Barriers to Discharge: No Barriers to Discharge Care Management Discharge Needs: Needs Prior to Discharge: None Obesity, Class III, BMI >= 40 04/15/2023 04/22/2023 PAF (paroxysmal atrial fibrillation) 04/11/2023 04/22/2023 On mechanically assisted ventilation 04/09/2023 04/13/2023 Overview: History: see care coordination note Assessment: see care coordination note Plan: see care coordination note. Stress hyperglycemia 04/09/2023 023 Overview: History: see care coordination note Assessment: see care coordination note Plan: see care coordination note Hypotension 04/09/2023 04/10/2023 Overview: History: see care coordination note Assessment: see care coordination note Plan: see care coordination note Hypoxemia 04/09/2023 04/22/2023 Angina pectoris 04/02/2023 04/13/2023 documented as of this encounter (statuses as of 07/24/2023) [facility]09-16-2023 History of Past illness Narrative* Problem Noted Date Diagnosed Date Resolved Date Hyponatremia 04/20/2023 04/22/2023 Summary 04/15/2023 04/24/2023 Overview: Indication for Surgery: CAD Preop LVEF: 62% Cards: Derrell Postop LVEF: Normal RVF: Normal PMH/PSH: poorly controlled HTN, hyperlipidemia, CKD IIIa, New diagnosis of diabetes. 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 He underwent a stress test which showed ischemia in all regions. Ejection fraction was normal. An echocardiogram was done - no valvular disease & normal ejection fraction. A left heart cath was done LM disease 20%, LAD 80%, Cx 100%, Ramus 70% and RCA 90%. Endocrinology recommended starting Januvia and to follow up with PCP. Airway Difficulty: Grade I - Campuzano Pacing Wires: Ventricular: pulled 04/15 Surgeries and Major Events: 04/09/2023: CABG x3 (RODARTE-LAD / SVG-RAMUS / SVG-RC) 04/09/2023: Large Right pneumothorax, s/p pigtail in CVICU 04/10/2023: Recurrence of right PTX; 2nd pigtail in right anterior chest in CVICU A/Plan: -CAD s/p CABG: ASA, BB, statin -Post-op right PTX s/p 2 pleural pigtails. Last pigtail removed 04/16 after clamp trial. Recent CXR from 04/22 noting trace effusions & no PTX. -Leukocytosis: Elevated WBC post-op, normalized at time of discharge. Recent history of UTI - UA suspicious for UTI - Urine cx positive for E. Coli, currently being treated with oral Cipro through 04/28 (Qtc 04/22 430). Outpatient urology f/u scheduled. Despite treatment for UTI, continued to have fevers. Blood cultures x 2 pos for MRSE. ID on consult & pt placed on on IV vanco. Repeat blood cultures x 2 sent on 04/22 NGTD and pt changed from IV vanco to 600mg Linezolid BID for 10 days (to be be completed on 05/02/23). RLE SVG sites concerning for cellulitis - no plans to open for now per Dr. Pritchard, continues to improve. Hold on US of LE. Ok for discharge per ID. -pAfib: Post-op, Episodes on 04/11, 04/12 - again overnight 04/14-. Currently in NSR. Continues on oral amio taper and BB. Reviewed with Dr. Pritchard, will not add AC at this time as pt is maintaining NSR -HPL (Newly diagnosed, LDL 104, statin naive). Added 40mg atorvastatin. Local reassessment for adjustments. -h/o HTN (pre-op on amlodipine & lisinopril). Historically not well controlled. Currently controlled with coreg, amlodipine and Bumex. Allowing for permissive HTN (SBP 150-170 is ok per nephro) -Acute on CKDIIIa: Noted on admission - Baseline Cr ~1.5. Scr peaked at 2.13, Echo done & pericardial effusion ruled out. Nephro consulted - Renal US unremarkable. Started on 1mg Bumex 04/22 for volume control. Follow trend. -Diabetes (new diagnosis with HgBA1C 6.9%). Radha-op exacerbation. Reconsult to endo on 04/23, f/u recs. Outpatient endo requested. -Obesity, class 2: BMI 36. 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 Refer to Endo for consideration of Ozempic owing to concomitant diabetes. -Dispo: from [place], [place]. PT recs home. OPD & Urology scheduled. [facility] Cards & Endo requested. Discharge Planning: Anticipated Discharge Date: 04/24 Barriers to Discharge: No Barriers to Discharge Care Management Discharge Needs: Needs Prior to Discharge: None Obesity, Class III, BMI >= 40 04/15/2023 04/22/2023 PAF (paroxysmal atrial fibrillation) 04/11/2023 04/22/2023 On mechanically assisted ventilation 04/09/2023 04/13/2023 Overview: History: see care coordination note Assessment: see care coordination note Plan: see care coordination note. Stress hyperglycemia 04/09/2023 023 Overview: History: see care coordination note Assessment: see care coordination note Plan: see care coordination note Hypotension 04/09/2023 04/10/2023 Overview: History: see care coordination note Assessment: see care coordination note Plan: see care coordination note Hypoxemia 04/09/2023 04/22/2023 Angina pectoris 04/02/2023 04/13/2023 documented as of this encounter (statuses as of 07/26/2023) [facility]09-16-2023 History of Past illness Narrative* Problem Noted Date Diagnosed Date Resolved Date Hyponatremia 04/20/2023 04/22/2023 Summary 04/15/2023 04/24/2023 Overview: Indication for Surgery: CAD Preop LVEF: 62% Cards: Derrell Postop LVEF: Normal RVF: Normal PMH/PSH: poorly controlled HTN, hyperlipidemia, CKD IIIa, New diagnosis of diabetes. 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 He underwent a stress test which showed ischemia in all regions. Ejection fraction was normal. An echocardiogram was done - no valvular disease & normal ejection fraction. A left heart cath was done LM disease 20%, LAD 80%, Cx 100%, Ramus 70% and RCA 90%. Endocrinology recommended starting Januvia and to follow up with PCP. Airway Difficulty: Grade I - Campuzano Pacing Wires: Ventricular: pulled 04/15 Surgeries and Major Events: 04/09/2023: CABG x3 (RODARTE-LAD / SVG-RAMUS / SVG-RC) 04/09/2023: Large Right pneumothorax, s/p pigtail in CVICU 04/10/2023: Recurrence of right PTX; 2nd pigtail in right anterior chest in CVICU A/Plan: -CAD s/p CABG: ASA, BB, statin -Post-op right PTX s/p 2 pleural pigtails. Last pigtail removed 04/16 after clamp trial. Recent CXR from 04/22 noting trace effusions & no PTX. -Leukocytosis: Elevated WBC post-op, normalized at time of discharge. Recent history of UTI - UA suspicious for UTI - Urine cx positive for E. Coli, currently being treated with oral Cipro through 04/28 (Qtc 04/22 430). Outpatient urology f/u scheduled. Despite treatment for UTI, continued to have fevers. Blood cultures x 2 pos for ESTHER. ID on consult & pt placed on on IV vanco. Repeat blood cultures x 2 sent on 04/22 NGTD and pt changed from IV vanco to 600mg Linezolid BID for 10 days (to be be completed on 05/02/23). RLE SVG sites concerning for cellulitis - no plans to open for now per Dr. Pritchard, continues to improve. Hold on US of LE. Ok for discharge per ID. -pAfib: Post-op, Episodes on 04/11, 04/12 - again overnight 04/14-. Currently in NSR. Continues on oral amio taper and BB. Reviewed with Dr. Pritchard, will not add AC at this time as pt is maintaining NSR -HPL (Newly diagnosed, LDL 104, statin naive). Added 40mg atorvastatin. Local reassessment for adjustments. -h/o HTN (pre-op on amlodipine & lisinopril). Historically not well controlled. Currently controlled with coreg, amlodipine and Bumex. Allowing for permissive HTN (SBP 150-170 is ok per nephro) -Acute on CKDIIIa: Noted on admission - Baseline Cr ~1.5. Scr peaked at 2.13, Echo done & pericardial effusion ruled out. Nephro consulted - Renal US unremarkable. Started on 1mg Bumex 04/22 for volume control. Follow trend. -Diabetes (new diagnosis with HgBA1C 6.9%). Radha-op exacerbation. Reconsult to endo on 04/23, f/u recs. Outpatient endo requested. -Obesity, class 2: BMI 36. 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 Refer to Endo for consideration of Ozempic owing to concomitant diabetes. -Dispo: from [place], [place]. PT recs home. OPD & Urology scheduled. [facility] Cards & Endo requested. Discharge Planning: Anticipated Discharge Date: 04/24 Barriers to Discharge: No Barriers to Discharge Care Management Discharge Needs: Needs Prior to Discharge: None Obesity, Class III, BMI >= 40 04/15/2023 04/22/2023 PAF (paroxysmal atrial fibrillation) 04/11/2023 04/22/2023 On mechanically assisted ventilation 04/09/2023 04/13/2023 Overview: History: see care coordination note Assessment: see care coordination note Plan: see care coordination note. Stress hyperglycemia 04/09/2023 023 Overview: History: see care coordination note Assessment: see care coordination note Plan: see care coordination note Hypotension 04/09/2023 04/10/2023 Overview: History: see care coordination note Assessment: see care coordination note Plan: see care coordination note Hypoxemia 04/09/2023 04/22/2023 Angina pectoris 04/02/2023 04/13/2023 documented as of this encounter (statuses as of 09/06/2023) [facility]09-16-2023 History of Past illness Narrative* Problem Noted Date Diagnosed Date Resolved Date Hyponatremia 04/20/2023 04/22/2023 Summary 04/15/2023 04/24/2023 Overview: Indication for Surgery: CAD Preop LVEF: 62% Cards: Derrell Postop LVEF: Normal RVF: Normal PMH/PSH: poorly controlled HTN, hyperlipidemia, CKD IIIa, New diagnosis of diabetes. 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 He underwent a stress test which showed ischemia in all regions. Ejection fraction was normal. An echocardiogram was done - no valvular disease & normal ejection fraction. A left heart cath was done LM disease 20%, LAD 80%, Cx 100%, Ramus 70% and RCA 90%. Endocrinology recommended starting Januvia and to follow up with PCP. Airway Difficulty: Grade I - Campuzano Pacing Wires: Ventricular: pulled 04/15 Surgeries and Major Events: 04/09/2023: CABG x3 (RODARTE-LAD / SVG-RAMUS / SVG-RC) 04/09/2023: Large Right pneumothorax, s/p pigtail in CVICU 04/10/2023: Recurrence of right PTX; 2nd pigtail in right anterior chest in CVICU A/Plan: -CAD s/p CABG: ASA, BB, statin -Post-op right PTX s/p 2 pleural pigtails. Last pigtail removed 04/16 after clamp trial. Recent CXR from 04/22 noting trace effusions & no PTX. -Leukocytosis: Elevated WBC post-op, normalized at time of discharge. Recent history of UTI - UA suspicious for UTI - Urine cx positive for E. Coli, currently being treated with oral Cipro through 04/28 (Qtc 04/22 430). Outpatient urology f/u scheduled. Despite treatment for UTI, continued to have fevers. Blood cultures x 2 pos for ESTHER. ID on consult & pt placed on on IV vanco. Repeat blood cultures x 2 sent on 04/22 NGTD and pt changed from IV vanco to 600mg Linezolid BID for 10 days (to be be completed on 05/02/23). RLE SVG sites concerning for cellulitis - no plans to open for now per Dr. Pritchard, continues to improve. Hold on US of LE. Guzman for discharge per ID. -pAfib: Post-op, Episodes on 04/11, 04/12 - again overnight 04/14-. Currently in NSR. Continues on oral amio taper and BB. Reviewed with Dr. Pritchard, will not add AC at this time as pt is maintaining NSR -HPL (Newly diagnosed, LDL 104, statin naive). Added 40mg atorvastatin. Local reassessment for adjustments. -h/o HTN (pre-op on amlodipine & lisinopril). Historically not well controlled. Currently controlled with coreg, amlodipine and Bumex. Allowing for permissive HTN (SBP 150-170 is ok per nephro) -Acute on CKDIIIa: Noted on admission - Baseline Cr ~1.5. Scr peaked at 2.13, Echo done & pericardial effusion ruled out. Nephro consulted - Renal US unremarkable. Started on 1mg Bumex 04/22 for volume control. Follow trend. -Diabetes (new diagnosis with HgBA1C 6.9%). Radha-op exacerbation. Reconsult to endo on 04/23, f/u recs. Outpatient endo requested. -Obesity, class 2: BMI 36. 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 Refer to Endo for consideration of Ozempic owing to concomitant diabetes. -Dispo: from [place], [place]. PT recs home. OPD & Urology scheduled. [facility] Cards & Endo requested. Discharge Planning: Anticipated Discharge Date: 04/24 Barriers to Discharge: No Barriers to Discharge Care Management Discharge Needs: Needs Prior to Discharge: None Obesity, Class III, BMI >= 40 04/15/2023 04/22/2023 PAF (paroxysmal atrial fibrillation) 04/11/2023 04/22/2023 On mechanically assisted ventilation 04/09/2023 04/13/2023 Overview: History: see care coordination note Assessment: see care coordination note Plan: see care coordination note. Stress hyperglycemia 04/09/2023 023 Overview: History: see care coordination note Assessment: see care coordination note Plan: see care coordination note Hypotension 04/09/2023 04/10/2023 Overview: History: see care coordination note Assessment: see care coordination note Plan: see care coordination note Hypoxemia 04/09/2023 04/22/2023 Angina pectoris 04/02/2023 04/13/2023 documented as of this encounter (statuses as of 09/10/2023) [facility]09-16-2023 History of Past illness Narrative* Problem Noted Date Diagnosed Date Resolved Date Hyponatremia 04/20/2023 04/22/2023 Summary 04/15/2023 04/24/2023 Overview: Indication for Surgery: CAD Preop LVEF: 62% Cards: Derrell Postop LVEF: Normal RVF: Normal PMH/PSH: poorly controlled HTN, hyperlipidemia, CKD IIIa, New diagnosis of diabetes. 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 He underwent a stress test which showed ischemia in all regions. Ejection fraction was normal. An echocardiogram was done - no valvular disease & normal ejection fraction. A left heart cath was done LM disease 20%, LAD 80%, Cx 100%, Ramus 70% and RCA 90%. Endocrinology recommended starting Januvia and to follow up with PCP. Airway Difficulty: Grade I - Campuzano Pacing Wires: Ventricular: pulled 04/15 Surgeries and Major Events: 04/09/2023: CABG x3 (RODARTE-LAD / SVG-RAMUS / SVG-RC) 04/09/2023: Large Right pneumothorax, s/p pigtail in CVICU 04/10/2023: Recurrence of right PTX; 2nd pigtail in right anterior chest in CVICU A/Plan: -CAD s/p CABG: ASA, BB, statin -Post-op right PTX s/p 2 pleural pigtails. Last pigtail removed 04/16 after clamp trial. Recent CXR from 04/22 noting trace effusions & no PTX. -Leukocytosis: Elevated WBC post-op, normalized at time of discharge. Recent history of UTI - UA suspicious for UTI - Urine cx positive for E. Coli, currently being treated with oral Cipro through 04/28 (Qtc 04/22 430). Outpatient urology f/u scheduled. Despite treatment for UTI, continued to have fevers. Blood cultures x 2 pos for MRSE. ID on consult & pt placed on on IV vanco. Repeat blood cultures x 2 sent on 04/22 NGTD and pt changed from IV vanco to 600mg Linezolid BID for 10 days (to be be completed on 05/02/23). RLE SVG sites concerning for cellulitis - no plans to open for now per Dr. Pritchard, continues to improve. Hold on US of [place] for discharge per ID. -pAfib: Post-op, Episodes on 04/11, 04/12 - again overnight 04/14-. Currently in NSR. Continues on oral amio taper and BB. Reviewed with Dr. Pritchard, will not add AC at this time as pt is maintaining NSR -HPL (Newly diagnosed, LDL 104, statin naive). Added 40mg atorvastatin. Local reassessment for adjustments. -h/o HTN (pre-op on amlodipine & lisinopril). Historically not well controlled. Currently controlled with coreg, amlodipine and Bumex. Allowing for permissive HTN (SBP 150-170 is ok per nephro) -Acute on CKDIIIa: Noted on admission - Baseline Cr ~1.5. Scr peaked at 2.13, Echo done & pericardial effusion ruled out. Nephro consulted - Renal US unremarkable. Started on 1mg Bumex 04/22 for volume control. Follow trend. -Diabetes (new diagnosis with HgBA1C 6.9%). Radha-op exacerbation. Reconsult to endo on 04/23, f/u recs. Outpatient endo requested. -Obesity, class 2: BMI 36. 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 Refer to Endo for consideration of Ozempic owing to concomitant diabetes. -Dispo: from [place], [place]. PT recs home. OPD & Urology scheduled. [facility] Cards & Endo requested. Discharge Planning: Anticipated Discharge Date: 04/24 Barriers to Discharge: No Barriers to Discharge Care Management Discharge Needs: Needs Prior to Discharge: None Obesity, Class III, BMI >= 40 04/15/2023 04/22/2023 PAF (paroxysmal atrial fibrillation) 04/11/2023 04/22/2023 On mechanically assisted ventilation 04/09/2023 04/13/2023 Overview: History: see care coordination note Assessment: see care coordination note Plan: see care coordination note. Stress hyperglycemia 04/09/2023 023 Overview: History: see care coordination note Assessment: see care coordination note Plan: see care coordination note Hypotension 04/09/2023 04/10/2023 Overview: History: see care coordination note Assessment: see care coordination note Plan: see care coordination note Hypoxemia 04/09/2023 04/22/2023 Angina pectoris 04/02/2023 04/13/2023 documented as of this encounter (statuses as of 09/12/2023) [facility]09-16-2023 History of Past illness Narrative* Problem Noted Date Diagnosed Date Resolved Date Hyponatremia 04/20/2023 04/22/2023 Summary 04/15/2023 04/24/2023 Overview: Indication for Surgery: CAD Preop LVEF: 62% Edvin: Derrell Postop LVEF: Normal RVF: Normal PMH/PSH: poorly controlled HTN, hyperlipidemia, CKD IIIa, New diagnosis of diabetes. 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 He underwent a stress test which showed ischemia in all regions. Ejection fraction was normal. An echocardiogram was done - no valvular disease & normal ejection fraction. A left heart cath was done LM disease 20%, LAD 80%, Cx 100%, Ramus 70% and RCA 90%. Endocrinology recommended starting Januvia and to follow up with PCP. Airway Difficulty: Grade I - Campuzano Pacing Wires: Ventricular: pulled 04/15 Surgeries and Major Events: 04/09/2023: CABG x3 (RODARTE-LAD / SVG-RAMUS / SVG-RC) 04/09/2023: Large Right pneumothorax, s/p pigtail in CVICU 04/10/2023: Recurrence of right PTX; 2nd pigtail in right anterior chest in CVICU A/Plan: -CAD s/p CABG: ASA, BB, statin -Post-op right PTX s/p 2 pleural pigtails. Last pigtail removed 04/16 after clamp trial. Recent CXR from 04/22 noting trace effusions & no PTX. -Leukocytosis: Elevated WBC post-op, normalized at time of discharge. Recent history of UTI - UA suspicious for UTI - Urine cx positive for E. Coli, currently being treated with oral Cipro through 04/28 (Qtc 04/22 430). Outpatient urology f/u scheduled. Despite treatment for UTI, continued to have fevers. Blood cultures x 2 pos for MRSE. ID on consult & pt placed on on IV vanco. Repeat blood cultures x 2 sent on 04/22 NGTD and pt changed from IV vanco to 600mg Linezolid BID for 10 days (to be be completed on 05/02/23). RLE SVG sites concerning for cellulitis - no plans to open for now per Dr. Pritchard, continues to improve. Hold on US of [place] for discharge per ID. -pAfib: Post-op, Episodes on 04/11, 04/12 - again overnight 04/14-. Currently in NSR. Continues on oral amio taper and BB. Reviewed with Dr. Pritchard, will not add AC at this time as pt is maintaining NSR -HPL (Newly diagnosed, LDL 104, statin naive). Added 40mg atorvastatin. Local reassessment for adjustments. -h/o HTN (pre-op on amlodipine & lisinopril). Historically not well controlled. Currently controlled with coreg, amlodipine and Bumex. Allowing for permissive HTN (SBP 150-170 is ok per nephro) -Acute on CKDIIIa: Noted on admission - Baseline Cr ~1.5. Scr peaked at 2.13, Echo done & pericardial effusion ruled out. Nephro consulted - Renal US unremarkable. Started on 1mg Bumex 9/18 for volume control. Follow trend. -Diabetes (new diagnosis with HgBA1C 6.9%). Radha-op exacerbation. Reconsult to endo on 04/23, f/u recs. Outpatient endo requested. -Obesity, class 2: BMI 36. 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 Refer to Endo for consideration of Ozempic owing to concomitant diabetes. -Dispo: from [place], [place]. PT recs home. OPD & Urology scheduled. [facility] Cards & Endo requested. Discharge Planning: Anticipated Discharge Date: 04/24 Barriers to Discharge: No Barriers to Discharge Care Management Discharge Needs: Needs Prior to Discharge: None Obesity, Class III, BMI >= 40 04/15/2023 04/22/2023 PAF (paroxysmal atrial fibrillation) 04/11/2023 04/22/2023 On mechanically assisted ventilation 04/09/2023 04/13/2023 Overview: History: see care coordination note Assessment: see care coordination note Plan: see care coordination note. Stress hyperglycemia 04/09/2023 023 Overview: History: see care coordination note Assessment: see care coordination note Plan: see care coordination note Hypotension 04/09/2023 04/10/2023 Overview: History: see care coordination note Assessment: see care coordination note Plan: see care coordination note Hypoxemia 04/09/2023 04/22/2023 Angina pectoris 04/02/2023 04/13/2023 documented as of this encounter (statuses as of 09/13/2023) [facility]09[facility]-2023 History of Past illness Narrative* Problem Noted Date Diagnosed Date Resolved Date Hyponatremia 04/20/2023 04/22/2023 Summary 04/15/2023 04/24/2023 Overview: Indication for Surgery: CAD Preop LVEF: 62% Edvin: Derrell Postop LVEF: Normal RVF: Normal PMH/PSH: poorly controlled HTN, hyperlipidemia, CKD IIIa, New diagnosis of diabetes. 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 He underwent a stress test which showed ischemia in all regions. Ejection fraction was normal. An echocardiogram was done - no valvular disease & normal ejection fraction. A left heart cath was done LM disease 20%, LAD 80%, Cx 100%, Ramus 70% and RCA 90%. Endocrinology recommended starting Januvia and to follow up with PCP. Airway Difficulty: Grade I - Campuzano Pacing Wires: Ventricular: pulled 04/15 Surgeries and Major Events: 04/09/2023: CABG x3 (RODARTE-LAD / SVG-RAMUS / SVG-RC) 04/09/2023: Large Right pneumothorax, s/p pigtail in CVICU 04/10/2023: Recurrence of right PTX; 2nd pigtail in right anterior chest in CVICU A/Plan: -CAD s/p CABG: ASA, BB, statin -Post-op right PTX s/p 2 pleural pigtails. Last pigtail removed 04/16 after clamp trial. Recent CXR from 04/22 noting trace effusions & no PTX. -Leukocytosis: Elevated WBC post-op, normalized at time of discharge. Recent history of UTI - UA suspicious for UTI - Urine cx positive for E. Coli, currently being treated with oral Cipro through 04/28 (Qtc 04/22 430). Outpatient urology f/u scheduled. Despite treatment for UTI, continued to have fevers. Blood cultures x 2 pos for MRSE. ID on consult & pt placed on on IV vanco. Repeat blood cultures x 2 sent on 04/22 NGTD and pt changed from IV vanco to 600mg Linezolid BID for 10 days (to be be completed on 05/02/23). RLE SVG sites concerning for cellulitis - no plans to open for now per Dr. Pritchard, continues to improve. Hold on US of LE. Guzman for discharge per ID. -pAfib: Post-op, Episodes on 04/11, 04/12 - again overnight 04/14-. Currently in NSR. Continues on oral amio taper and BB. Reviewed with Dr. Pritchard, will not add AC at this time as pt is maintaining NSR -HPL (Newly diagnosed, LDL 104, statin naive). Added 40mg atorvastatin. Local reassessment for adjustments. -h/o HTN (pre-op on amlodipine & lisinopril). Historically not well controlled. Currently controlled with coreg, amlodipine and Bumex. Allowing for permissive HTN (SBP 150-170 is ok per nephro) -Acute on CKDIIIa: Noted on admission - Baseline Cr ~1.5. Scr peaked at 2.13, Echo done & pericardial effusion ruled out. Nephro consulted - Renal US unremarkable. Started on 1mg Bumex 04/22 for volume control. Follow trend. -Diabetes (new diagnosis with HgBA1C 6.9%). Radha-op exacerbation. Reconsult to endo on 04/23, f/u recs. Outpatient endo requested. -Obesity, class 2: BMI 36. 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 Refer to Endo for consideration of Ozempic owing to concomitant diabetes. -Dispo: from [place], [place]. PT recs home. OPD & Urology scheduled. [facility] Cards & Endo requested. Discharge Planning: Anticipated Discharge Date: 04/24 Barriers to Discharge: No Barriers to Discharge Care Management Discharge Needs: Needs Prior to Discharge: None Obesity, Class III, BMI >= 40 04/15/2023 04/22/2023 PAF (paroxysmal atrial fibrillation) 04/11/2023 04/22/2023 On mechanically assisted ventilation 04/09/2023 04/13/2023 Overview: History: see care coordination note Assessment: see care coordination note Plan: see care coordination note. Stress hyperglycemia 04/09/2023 023 Overview: History: see care coordination note Assessment: see care coordination note Plan: see care coordination note Hypotension 04/09/2023 04/10/2023 Overview: History: see care coordination note Assessment: see care coordination note Plan: see care coordination note Hypoxemia 04/09/2023 04/22/2023 Angina pectoris 04/02/2023 04/13/2023 documented as of this encounter (statuses as of 09/24/2023) [facility]09-16-2023 History of Past illness Narrative* Problem Noted Date Diagnosed Date Resolved Date Hyponatremia 04/20/2023 04/22/2023 Summary 04/15/2023 04/24/2023 Overview: Indication for Surgery: CAD Preop LVEF: 62% Cards: Derrell Postop LVEF: Normal RVF: Normal PMH/PSH: poorly controlled HTN, hyperlipidemia, CKD IIIa, New diagnosis of diabetes. 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 He underwent a stress test which showed ischemia in all regions. Ejection fraction was normal. An echocardiogram was done - no valvular disease & normal ejection fraction. A left heart cath was done LM disease 20%, LAD 80%, Cx 100%, Ramus 70% and RCA 90%. Endocrinology recommended starting Januvia and to follow up with PCP. Airway Difficulty: Grade I - Campuzano Pacing Wires: Ventricular: pulled 04/15 Surgeries and Major Events: 04/09/2023: CABG x3 (RODARTE-LAD / SVG-RAMUS / SVG-RC) 04/09/2023: Large Right pneumothorax, s/p pigtail in CVICU 04/10/2023: Recurrence of right PTX; 2nd pigtail in right anterior chest in CVICU A/Plan: -CAD s/p CABG: ASA, BB, statin -Post-op right PTX s/p 2 pleural pigtails. Last pigtail removed 04/16 after clamp trial. Recent CXR from 04/22 noting trace effusions & no PTX. -Leukocytosis: Elevated WBC post-op, normalized at time of discharge. Recent history of UTI - UA suspicious for UTI - Urine cx positive for E. Coli, currently being treated with oral Cipro through 04/28 (Qtc 04/22 430). Outpatient urology f/u scheduled. Despite treatment for UTI, continued to have fevers. Blood cultures x 2 pos for MRSE. ID on consult & pt placed on on IV vanco. Repeat blood cultures x 2 sent on 04/22 NGTD and pt changed from IV vanco to 600mg Linezolid BID for 10 days (to be be completed on 05/02/23). RLE SVG sites concerning for cellulitis - no plans to open for now per Dr. Pritchard, continues to improve. Hold on US of LE. Guzman for discharge per ID. -pAfib: Post-op, Episodes on 04/11, 04/12 - again overnight 04/14-. Currently in NSR. Continues on oral amio taper and BB. Reviewed with Dr. Pritchard, will not add AC at this time as pt is maintaining NSR -HPL (Newly diagnosed, LDL 104, statin naive). Added 40mg atorvastatin. Local reassessment for adjustments. -h/o HTN (pre-op on amlodipine & lisinopril). Historically not well controlled. Currently controlled with coreg, amlodipine and Bumex. Allowing for permissive HTN (SBP 150-170 is ok per nephro) -Acute on CKDIIIa: Noted on admission - Baseline Cr ~1.5. Scr peaked at 2.13, Echo done & pericardial effusion ruled out. Nephro consulted - Renal US unremarkable. Started on 1mg Bumex 04/22 for volume control. Follow trend. -Diabetes (new diagnosis with HgBA1C 6.9%). Radha-op exacerbation. Reconsult to endo on 04/23, f/u recs. Outpatient endo requested. -Obesity, class 2: BMI 36. 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 Refer to Endo for consideration of Ozempic owing to concomitant diabetes. -Dispo: from [place], [place]. PT recs home. OPD & Urology scheduled. [facility] Cards & Endo requested. Discharge Planning: Anticipated Discharge Date: 04/24 Barriers to Discharge: No Barriers to Discharge Care Management Discharge Needs: Needs Prior to Discharge: None Obesity, Class III, BMI >= 40 04/15/2023 04/22/2023 PAF (paroxysmal atrial fibrillation) 04/11/2023 04/22/2023 On mechanically assisted ventilation 04/09/2023 04/13/2023 Overview: History: see care coordination note Assessment: see care coordination note Plan: see care coordination note. Stress hyperglycemia 04/09/2023 023 Overview: History: see care coordination note Assessment: see care coordination note Plan: see care coordination note Hypotension 04/09/2023 04/10/2023 Overview: History: see care coordination note Assessment: see care coordination note Plan: see care coordination note Hypoxemia 04/09/2023 04/22/2023 Angina pectoris 04/02/2023 04/13/2023 documented as of this encounter (statuses as of 09/27/2023) [facility] noteNo assessment information availableW[facility] Work Phone: Evaluation note* Diagnosis Surgery follow-up Follow-up examination, following unspecified surgery documented in this encounter [facility] note* Diagnosis S/P CABG x 3- Primary Postsurgical aortocoronary bypass status Essential hypertension Unspecified essential hypertension Postoperative atrial fibrillation (HCC) Cardiac complications SOLIS (acute kidney injury) (HCC) Acute kidney failure, unspecified Stage 3a chronic kidney disease (HCC) Recurrent urinary tract infection Urinary tract infection, site not specified documented in this encounter [facility] note* Diagnosis Frequent UTI- Primary Urinary tract infection, site not specified BPH with urinary obstruction Hypertrophy of prostate with urinary obstruction and other lower urinary tract symptoms (LUTS) documented in this encounter [facility] note* Diagnosis Visit for wound check- Primary Encounter for other specified aftercare documented in this encounter [facility] note* Diagnosis Visit for wound check- Primary Encounter for other specified aftercare documented in this encounter [facility] note* Diagnosis Visit for wound check- Primary Encounter for other specified aftercare S/P CABG x 3 Postsurgical aortocoronary bypass status documented in this encounter [facility] note* Diagnosis Hx of CABG- Primary Postsurgical aortocoronary bypass status documented in this encounter [facility] note* Diagnosis Hx of CABG- Primary Postsurgical aortocoronary bypass status documented in this encounter [facility] note* Diagnosis Hx of CABG- Primary Postsurgical aortocoronary bypass status documented in this encounter [facility] note* Diagnosis Hx of CABG- Primary Postsurgical aortocoronary bypass status documented in this encounter [facility] note* Diagnosis Hx of CABG- Primary Postsurgical aortocoronary bypass status documented in this encounter [facility] note* Diagnosis Visit for wound check- Primary Encounter for other specified aftercare S/P CABG x 3 Postsurgical aortocoronary bypass status documented in this encounter [facility] note* Diagnosis Hx of CABG- Primary Postsurgical aortocoronary bypass status documented in this encounter [facility] note* Diagnosis Hx of CABG- Primary Postsurgical aortocoronary bypass status documented in this encounter [facility] note* Diagnosis Hx of CABG- Primary Postsurgical aortocoronary bypass status documented in this encounter [facility] note* Diagnosis Hx of CABG- Primary Postsurgical aortocoronary bypass status [facility] Diagnosis Hx of CABG- Primary Postsurgical aortocoronary bypass status documented in this encounter [facility] note* Diagnosis Hx of CABG- Primary Postsurgical aortocoronary bypass status documented in this encounter [facility] note* Diagnosis Hx of CABG- Primary Postsurgical aortocoronary bypass status documented in this encounter [facility] note* Diagnosis Hx of CABG- Primary Postsurgical aortocoronary bypass status documented in this encounter [facility] note* Diagnosis Hx of CABG- Primary Postsurgical aortocoronary bypass status documented in this encounter [facility] note* Diagnosis Hx of CABG- Primary Postsurgical aortocoronary bypass status documented in this encounter [facility] note* Diagnosis Hx of CABG- Primary Postsurgical aortocoronary bypass status documented in this encounter [facility] note* Diagnosis Hx of CABG- Primary Postsurgical aortocoronary bypass status documented in this encounter [facility] note* Diagnosis Hx of CABG- Primary Postsurgical aortocoronary bypass status documented in this encounter [facility] note* Diagnosis Coronary artery dise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- Primary Herpes zoster with complication Herpes zoster with unspecified complication Essential hypertension Unspecified essential hypertension Stage 3b chronic kidney disease (HCC) Controlled type 2 diabetes mellitus without complication, without long-term current use of insulin (HCC) documented in this encounter [facility] note* Diagnosis Coronary artery dise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- Primary Essential hypertension Unspecified essential hypertension Leg pain, bilateral Pain in limb Stage 3 chronic kidney disease, unspecified whether stage 3a or 3b CKD (HCC) documented in this encounter [facility] note* Diagnosis Leg pain, bilateral Pain in limb documented in this encounter [facility] note* Diagnosis Coronary artery dise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- Primary Hx of CABG Postsurgical aortocoronary bypass status Essential hypertension Unspecified essential hypertension Neurogenic claudication Spinal stenosis, lumbar region, with neurogenic claudication Change in heart murmur Undiagnosed cardiac murmurs Palpitations Heart palpitations Palpitations documented in this encounter [facility] for referral (narrative)* Outpatient Procedure (Routine) - Closed Specialty Diagnoses / Procedures Referred By Contac t Referred To [facility] Diagnoses Leg pain, bilateral Procedures PVR LEG W/EXC ALVARADO VAS LAB N-INVAS PHYSIOLOGIC STD LXTR ART COMPL Marilyn Hector MD [address] [place] [address] [place] [id number] Referral ID Status Reason Start Date Expiration Date V isits Requested Visits Authorized [id number] Closed Auto-Generate d Referral 06/26/2024 06/26/2025 1 1 [facility] for visit Narrative* Outpatient Procedure (Routine) - Closed Specialty Diagnoses / Procedures Referred By Contac t Referred To [facility] Diagnoses Leg pain, bilateral Procedures PVR LEG W/EXC ALVARADO VAS LAB N-INVAS PHYSIOLOGIC STD LXTR ART COMPL Marilyn Hector MD [address] [place] [phone] [address] [address] Referral ID Status Reason Start Date Expiration Date V isits Requested Visits Authorized [id number] Closed Auto-Generate d Referral 06/26/2024 06/26/2025 1 1 [facility] Advance Directives No Advanced Directives Records Found Advance Directive Response Recorded Date/ Time Advance Directives No April 2:04am Living Will Yes December 07, 2020 4: 04am Power of Coil Winder Yes December 07, 2020 4:04am Documents on File Type Date 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 Diagnoses Coronary artery dise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 Procedures CARDIOVASCULAR MEDICINE OP FOLLOW UP APPT ORDER Marilyn Dove MD [address] [place] [address] [address] Referral ID Status Reason Start Date Expiration Date Visits Requested Visits Authorized [id number] Ref Not Required PCP Requested Referral 12/31/2024 1 1 Specialty Diagnoses / Procedures Referred By Contac t Referred To Contact Dermatology Diagnoses Scaly patch rash Procedures [place] [address] [place] [address] Referral ID Status Reason Start Date Expiration Date Visits Requested Visits Authorized [id number] Ref Not Required PCP Requested Referral 01/20/2024 01/12/2025 1 1 Specialty Diagnoses / Procedures Referred By Contac t Referred To Contact [facility] Diagnoses Coronary artery dise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 Essential hypertension Procedures CARDIOVASCULAR MEDICINE OP FOLLOW UP APPT ORDER Marilyn Dove MD [address] [place] [address] [address] Referral ID Status Reason Start Date Expiration Date Visits Requested Visits Authorized [id number] Ref Not Required PCP Requested Referral 12/24/2024 06/26/2025 1 1 Specialty Diagnoses / Procedures Referred By Contac t Referred To Contact [facility] Diagnoses Leg pain, bilateral Procedures PVR LEG W/EXC ALVARADO VAS LAB N-INVAS PHYSIOLOGIC STD LXTR ART COMPL BI Marilyn Dove MD [address] [place] [address] [address] Referral ID Status Reason Start Date Expiration Date Visits Requested Visits Authorized [id number] Authorized Auto-Generat ed Referral 06/26/2025 1 1 Additional Source Comments Goals (unrecognized section and content) Goals may be documented in a n alternate sectionGoals may be documented in an alternate section Source Comments (unrecognize d section and content) In the event this informatio n is protected by the Federal Confidentiality of Alcohol and Drug Abuse Patient Records regulations: The Federal rules restrict any use of the information to criminally investigate or prosecute any alcohol or drug abuse patient.[facility] HospitalIn the event this information is protected by the Federal Confidentiality of Alcohol and Drug Abuse Patient Records regulations: The Federal rules restrict any use of the information to criminally investigate or prosecute any alcohol or drug abuse patient.[facility] HospitalIn the event this information is protected by the Federal Confidentiality of Alcohol and Drug Abuse Patient Records regulations: The Federal rules restrict any use of the information to criminally investigate or prosecute any alcohol or drug abuse patient.[facility] HospitalIn the event this information is protected by the Federal Confidentiality of Alcohol and Drug Abuse Patient Records regulations: The Federal rules restrict any use of the information to criminally investigate or prosecute any alcohol or drug abuse patient.[facility] HospitalIn the event this information is protected by the Federal Confidentiality of Alcohol and Drug Abuse Patient Records regulations: The Federal rules restrict any use of the information to criminally investigate or prosecute any alcohol or drug abuse patient.[facility] HospitalIn the event this information is protected by the Federal Confidentiality of Alcohol and Drug Abuse Patient Records regulations: The Federal rules restrict any use of the information to criminally investigate or prosecute any alcohol or drug abuse patient.[facility] HospitalIn the event this information is protected by the Federal Confidentiality of Alcohol and Drug Abuse Patient Records regulations: The Federal rules restrict any use of the information to criminally investigate or prosecute any alcohol or drug abuse patient.[facility] HospitalIn the event this information is protected by the Federal Confidentiality of Alcohol and Drug Abuse Patient Records regulations: The Federal rules restrict any use of the information to criminally investigate or prosecute any alcohol or drug abuse patient.[facility] HospitalIn the event this information is protected by the Federal Confidentiality of Alcohol and Drug Abuse Patient Records regulations: The Federal rules restrict any use of the information to criminally investigate or prosecute any alcohol or drug abuse patient.[facility] HospitalIn the event this information is protected by the Federal Confidentiality of Alcohol and Drug Abuse Patient Records regulations: The Federal rules restrict any use of the information to criminally investigate or prosecute any alcohol or drug abuse patient.[facility] HospitalIn the event this information is protected by the Federal Confidentiality of Alcohol and Drug Abuse Patient Records regulations: The Federal rules restrict any use of the information to criminally investigate or prosecute any alcohol or drug abuse patient.[facility] HospitalIn the event this information is protected by the Federal Confidentiality of Alcohol and Drug Abuse Patient Records regulations: The Federal rules restrict any use of the information to criminally investigate or prosecute any alcohol or drug abuse patient.[facility] HospitalIn the event this information is protected by the Federal Confidentiality of Alcohol and Drug Abuse Patient Records regulations: The Federal rules restrict any use of the information to criminally investigate or prosecute any alcohol or drug abuse patient.[facility] HospitalIn the event this information is protected by the Federal Confidentiality of Alcohol and Drug Abuse Patient Records regulations: The Federal rules restrict any use of the information to criminally investigate or prosecute any alcohol or drug abuse patient.[facility] HospitalIn the event this information is protected by the Federal Confidentiality of Alcohol and Drug Abuse Patient Records regulations: The Federal rules restrict any use of the information to criminally investigate or prosecute any alcohol or drug abuse patient.[facility] HospitalIn the event this information is protected by the Federal Confidentiality of Alcohol and Drug Abuse Patient Records regulations: The Federal rules restrict any use of the information to criminally investigate or prosecute any alcohol or drug abuse patient.[facility] HospitalIn the event this information is protected by the Federal Confidentiality of Alcohol and Drug Abuse Patient Records regulations: The Federal rules restrict any use of the information to criminally investigate or prosecute any alcohol or drug abuse patient.[facility] HospitalIn the event this information is protected by the Federal Confidentiality of Alcohol and Drug Abuse Patient Records regulations: The Federal rules restrict any use of the information to criminally investigate or prosecute any alcohol or drug abuse patient.[facility] HospitalIn the event this information is protected by the Federal Confidentiality of Alcohol and Drug Abuse Patient Records regulations: The Federal rules restrict any use of the information to criminally investigate or prosecute any alcohol or drug abuse patient.[facility] HospitalIn the event this information is protected by the Federal Confidentiality of Alcohol and Drug Abuse Patient Records regulations: The Federal rules restrict any use of the information to criminally investigate or prosecute any alcohol or drug abuse patient.[facility] HospitalIn the event this information is protected by the Federal Confidentiality of Alcohol and Drug Abuse Patient Records regulations: The Federal rules restrict any use of the information to criminally investigate or prosecute any alcohol or drug abuse patient.[facility] HospitalIn the event this information is protected by the Federal Confidentiality of Alcohol and Drug Abuse Patient Records regulations: The Federal rules restrict any use of the information to criminally investigate or prosecute any alcohol or drug abuse patient.[facility] HospitalIn the event this information is protected by the Federal Confidentiality of Alcohol and Drug Abuse Patient Records regulations: The Federal rules restrict any use of the information to criminally investigate or prosecute any alcohol or drug abuse patient.[facility] HospitalIn the event this information is protected by the Federal Confidentiality of Alcohol and Drug Abuse Patient Records regulations: The Federal rules restrict any use of the information to criminally investigate or prosecute any alcohol or drug abuse patient.[facility] HospitalIn the event this information is protected by the Federal Confidentiality of Alcohol and Drug Abuse Patient Records regulations: The Federal rules restrict any use of the information to criminally investigate or prosecute any alcohol or drug abuse patient.[facility] HospitalIn the event this information is protected by the Federal Confidentiality of Alcohol and Drug Abuse Patient Records regulations: The Federal rules restrict any use of the information to criminally investigate or prosecute any alcohol or drug abuse patient.[facility] HospitalIn the event this information is protected by the Federal Confidentiality of Alcohol and Drug Abuse Patient Records regulations: The Federal rules restrict any use of the information to criminally investigate or prosecute any alcohol or drug abuse patient.[facility] HospitalIn the event this information is protected by the Federal Confidentiality of Alcohol and Drug Abuse Patient Records regulations: The Federal rules restrict any use of the information to criminally investigate or prosecute any alcohol or drug abuse patient.[facility] HospitalIn the event this information is protected by the Federal Confidentiality of Alcohol and Drug Abuse Patient Records regulations: The Federal rules restrict any use of the information to criminally investigate or prosecute any alcohol or drug abuse patient.[facility] HospitalIn the event this information is protected by the Federal Confidentiality of Alcohol and Drug Abuse Patient Records regulations: The Federal rules restrict any use of the information to criminally investigate or prosecute any alcohol or drug abuse patient.[facility] HospitalIn the event this information is protected by the Federal Confidentiality of Alcohol and Drug Abuse Patient Records regulations: The Federal rules restrict any use of the information to criminally investigate or prosecute any alcohol or drug abuse patient.[facility] HospitalIn the event this information is protected by the Federal Confidentiality of Alcohol and Drug Abuse Patient Records regulations: The Federal rules restrict any use of the information to criminally investigate or prosecute any alcohol or drug abuse patient.[facility] HospitalIn the event this information is protected by the Federal Confidentiality of Alcohol and Drug Abuse Patient Records regulations: The Federal rules restrict any use of the information to criminally investigate or prosecute any alcohol or drug abuse patient.[facility] HospitalIn the event this information is protected by the Federal Confidentiality of Alcohol and Drug Abuse Patient Records regulations: The Federal rules restrict any use of the information to criminally investigate or prosecute any alcohol or drug abuse patient.[facility] HospitalIn the event this information is protected by the Federal Confidentiality of Alcohol and Drug Abuse Patient Records regulations: The Federal rules restrict any use of the information to criminally investigate or prosecute any alcohol or drug abuse patient.[facility] HospitalIn the event this information is protected by the Federal Confidentiality of Alcohol and Drug Abuse Patient Records regulations: The Federal rules restrict any use of the information to criminally investigate or prosecute any alcohol or drug abuse patient.[facility] HospitalIn the event this information is protected by the Federal Confidentiality of Alcohol and Drug Abuse Patient Records regulations: The Federal rules restrict any use of the information to criminally investigate or prosecute any alcohol or drug abuse patient.[facility] HospitalIn the event this information is protected by the Federal Confidentiality of Alcohol and Drug Abuse Patient Records regulations: The Federal rules restrict any use of the information to criminally investigate or prosecute any alcohol or drug abuse patient.[facility] HospitalIn the event this information is protected by the Federal Confidentiality of Alcohol and Drug Abuse Patient Records regulations: The Federal rules restrict any use of the information to criminally investigate or prosecute any alcohol or drug abuse patient.[facility] HospitalIn the event this information is protected by the Federal Confidentiality of Alcohol and Drug Abuse Patient Records regulations: The Federal rules restrict any use of the information to criminally investigate or prosecute any alcohol or drug abuse patient.[facility] HospitalIn the event this information is protected by the Federal Confidentiality of Alcohol and Drug Abuse Patient Records regulations: The Federal rules restrict any use of the information to criminally investigate or prosecute any alcohol or drug abuse patient.[facility] HospitalIn the event this information is protected by the Federal Confidentiality of Alcohol and Drug Abuse Patient Records regulations: The Federal rules restrict any use of the information to criminally investigate or prosecute any alcohol or drug abuse patient.[facility] HospitalIn the event this information is protected by the Federal Confidentiality of Alcohol and Drug Abuse Patient Records regulations: The Federal rules restrict any use of the information to criminally investigate or prosecute any alcohol or drug abuse patient.[facility] HospitalIn the event this information is protected by the Federal Confidentiality of Alcohol and Drug Abuse Patient Records regulations: The Federal rules restrict any use of the information to criminally investigate or prosecute any alcohol or drug abuse patient.[facility] Reason for Visit (unrecogniz ed section and content) Reason Comments Post-Op Visit Specialty Diagnoses / Procedures Referred By Maribel jiménez Referred To Contact HOSP INPATIENT Diagnoses Angina pectoris (HCC) CAD (coronary artery disease) Procedures NA Hosp Main [id number] [place] [address] Referral ID Status Reason Start Date Expiration Date Visits Re quested Visits Authorized [id number] 1 1 Reason Comments Follow Up Phone Call follow up call a ll clear. Reason Comments Anticoagulation - Initial Consult Reason Comments Follow Up Phone Call RC f/u all clear Reason Comments Radio Main J1 Reason Comments Cardiac Rehab 2nd call and letter sent Reason Comments UTI New Patient Benign Prostatic Hypertrophy Reason Comments Post Dc Program Call - Needs Attn Reason Comments Post Op Reason Comments New Patient Post heart surgery . Was advised to see Neph after discharge. Reason Comments Phase 2 Session Specialty Diagnoses / Procedures Referred By Maribel jiménez Referred To Contact CARDIOLOGY Diagnoses Hx of CABG Procedures OUTPATIENT CARDIAC REHAB W/CONT ECG MONITORING Marilyn Dove MD [address] [place] [address] Card [facility] [address] [place] [address] Referral ID Status Reason Start Date Expiration Date V isits Requested Visits Authorized [id number] Authorized 05/08/2023 05/08/2024 36 36 Reason Comments Post Dc Program Call - Needs Attn Appointment Referral ID Status Reason Start Date Expiration Date Visits Re quested Visits Authorized [id number] Closed 05/08/2023 05/08/2024 36 36 Reason Comments Follow Up Reason Comments Results Reason Comments Follow Up Reaction of a medica tion Reason Comments Follow Up Specialty Diagnoses / Procedures Referred By Contac t Referred To Contact [facility] [place] Diagnoses Coronary artery dise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 Procedures CARDIOVASCULAR MEDICINE OP FOLLOW UP APPT ORDER Marilyn Dove MD [address] [place] [address] [place] [phone] Referral ID Status Reason Start Date Expiration Date Visits Requested Visits Authorized [id number] Ref Not Required PCP Requested Referral 12/31/2024 1 1 Reason Comments Follow Up Reason Comments Refill Request Reason Comments Received Outside Medical Records Medical Clearance scanned Reason Comments Follow Up Specialty Diagnoses / Procedures Referred By Maribel jiménez Referred To Contact [facility] Diagnoses Coronary artery dise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 Essential hypertension Procedures CARDIOVASCULAR MEDICINE OP FOLLOW UP APPT ORDER Marilyn Dove MD [address] [place] [address] Phone: tel: fax: [address] [address] Referral ID Status Reason Start Date Expiration Date V isits Requested Visits Authorized [id number] Closed PCP Requested Referral 12/24/2024 06/26/2025 1 1 Care Teams (unrecognized sec tion and content) State [employer] Relations Deputy Director Relationship Specialty Start Date End Date Santino Fermin DO [address] [facility] [address] PCP - General Family Medicine 04/01/23 [employer] Deputy Director Relationship Specialty Start Date End Date Santino Fermin DO [address] [place] [address] PCP - General Family Medicine 04/01/23 State [employer] Deputy Director Relationship Specialty Start Date End Date Santino Fermin DO [address] [place] [address] PCP - General Family Medicine 04/01/23 State Federal [employer] Deputy Director Relationship Specialty Start Date End Date Santino Fermin DO [address] [place] [address] PCP - General Family Medicine 04/01/23 State Federal [employer] Deputy Director Relationship Specialty Start Date End Date Santino Fermin DO [address] [place] [address] PCP - General Family Medicine 04/01/23 State Federal Relations Deputy Director Relationship Specialty Start Date End Date Santino Fermin DO [address] [place] [address] PCP - General Family Medicine 04/01/23 State [employer] Deputy Director Relationship Specialty Start Date End Date Santino Fermin DO [address] [place] [address] PCP - General Family Medicine 04/01/23 State Federal Relations Deputy Director Relationship Specialty Start Date End Date Santino Fermin DO [address] [place] [address] PCP - General Family Medicine 04/01/23 State Federal [employer] Deputy Director Relationship Specialty Start Date End Date Santino Fermin DO [address] [place], [place] [address] PCP - General Family Medicine 04/01/23 State Federal [employer] Deputy Director Relationship Specialty Start Date End Date Santino Fermin DO [address] [place] [address] PCP - General Family Medicine 04/01/23 State Federal [employer] Deputy Director Relationship Specialty Start Date End Date Santino Fermin DO [address] [place] [address] PCP - General Family Medicine 04/01/23 State [employer] Deputy Director Relationship Specialty Start Date End Date Santino Fermin DO [address] [place] [address] PCP - General Family Medicine 04/01/23 State [employer] Deputy Director Relationship Specialty Start Date End Date Santino Fermin DO [address] [place] [address] PCP - General Family Medicine 04/01/23 State Federal Relations Deputy Director Relationship Specialty Start Date End Date Santino Fermin DO [address] [place] [address] PCP - General Family Medicine 04/01/23 State Federal Relations Deputy Director Relationship Specialty Start Date End Date Santino Fermin DO [address] [place] [address] PCP - General Family Medicine 04/01/23 State Federal Relations Deputy Director Relationship Specialty Start Date End Date Santino Fermin DO [address] [place] [address] PCP - General Family Medicine 04/01/23 State Federal Relations Deputy Director Relationship Specialty Start Date End Date Santino Fermin DO [address] [place] [address] PCP - General Family Medicine 04/01/23 State Federal Relations Deputy Director Relationship Specialty Start Date End Date Santino Fermin DO [address] [place] [address] PCP - General Family Medicine 04/01/23 State Federal Relations Deputy Director Relationship Specialty Start Date End Date Santino Fermin DO [address] [place] [address] PCP - General Family Medicine 04/01/23 State Federal Relations Deputy Director Relationship Specialty Start Date End Date Santino Fermin DO [address] [place] [address] PCP - General Family Medicine 04/01/23 State Federal Relations Deputy Director Relationship Specialty Start Date End Date Santino Fermin DO [address] [place] [address] PCP - General Family Medicine 04/01/23 State Federal Relations Deputy Director Relationship Specialty Start Date End Date Santino Fermin DO [address] [place] [address] PCP - General Family Medicine 04/01/23 State Federal [employer] Deputy Director Relationship Specialty Start Date End Date IonaSantino escudero [address] [place] [address] PCP - General Family Medicine 04/01/23 State [employer] Deputy Director Relationship Specialty Start Date End Date IonaSantino escudero [address] [place] [address] PCP - General Family Medicine 04/01/23 Team Status: Active Member Role Status Dates Dr. Santino Fermin DO Family Provider Active ALANA Hale Primary Care Provider Active Team Status: Inactive Member Role Status Dates ALANA Hale Primary Care Provider, Attending Alexandria latham Active State [employer] Deputy Director Relationship Specialty Start Date End Date IonaSantino escuderoDO [address] [place] [address] PCP - General Family Medicine 04/01/23 State [employer] Deputy Director Relationship Specialty Start Date End Date Santino Fermin [address] [place] [address] PCP - General Family Medicine 04/01/23 State [employer] Deputy Director Relationship Specialty Start Date End Date IonaSantino escuderoDO [address] [place] [address] PCP - General Family Medicine 04/01/23 State [employer] Deputy Director Relationship Specialty Start Date End Date IonaSantino jimeenzDO [address] [place], [place] [address] PCP - General Family Medicine 04/01/23 (unrecognized sect ion and content) No Status Records FoundNo Status Records FoundNo Status Records FoundNo Status Records Found INFORMATION SOURCE (unrecogn ized section and content) DATE CREATED AUTHOR 05/09/2023 [facility] DATE CREATED AUTHOR AUTHOR'S ORGANIZ ATION 07/09/2024 [facility] DATE CREATED AUTHOR AUTHOR'S ORGANIZ ATION 01/04/2025 [facility] DATE CREATED AUTHOR AUTHOR'S ORGANIZ ATION 01/06/2025 [facility] FOR RECORDS PERTAINING TO PATIENTS WHO ARE OR HAVE BEEN ENROLLED IN A CHEMICAL DEPENDENCY/SUBSTANCEABUSE PROGRAM, SOME INFORMATION MAY BE OMITTED. This clinical summary was aggregated from multiple sources. Caution should be exercised in using it in the provision of clinical care. This summary normalizes information from multiple sources, and as a consequence, information in this document may materially change the coding, format and clinical context of patient data. In addition, data may be omitted in some cases. CLINICAL DECISIONS SHOULD BE BASED ON THE PRIMARY CLINICAL RECORDS. [facility] [employer] [facility]. provides no warranty or guarantee of the accuracy or completeness of information in this document.
[2025-01-07 09:14] LABS: CREATININE FINGERSTICK 1.2 mg/dL (0.70-1.30); EGFR FINGERSTICK > 60.0000 mL/min (>60)
== END | disposition home or self-care (01) ==
LOC: OPMRI 08:05
PROVIDERS: PCP Family Medicine; Referring Provider Family Medicine; Visit Provider Family Medicine
DX: R10.2 Pelvic and perineal pain (principal); R97.20 Elevated prostate specific antigen [PSA]
CPT/HCPCS: 72197; A9575; A4216

== ENCOUNTER → 2025-03-24 | Outpatient (CLI) | payer MEDICARE, SELFPAY ==
[2025-03-26 14:09] LABS: PSA, Free 1.89 ng/mL; PSA, Free % 13.4 % (.); PSA, Total Ultrasensitive 14.100 ng/mL (0.000-4.000)
== END | disposition home or self-care (01) ==
LOC: MTLAB 13:17
PROVIDERS: PCP Family Medicine; Referring Provider Family Medicine; Visit Provider Family Medicine
DX: R97.20 Elevated prostate specific antigen [PSA] (principal)
CPT/HCPCS: 36415; 84153; 84154